=== PATIENT | female | born 1950 | race Caucasian/White ===

== ENCOUNTER 2020-07-06 10:13 | Inpatient (IN) | payer MEDICARE, SELFPAY ==
[2020-07-06] VITALS (10 sets, daily range): BP systolic 101–186; BP diastolic 45–75; PULSE 91–98; RESP 16–20; TEMP 36.9–39.3; O2SAT 93–99; BMI 40.7
--- NOTE | ~2020-07-06 | CT_ITS ---
EXAMINATION: CT HEAD WITHOUT CONTRAST CLINICAL INFORMATION: Left-sided facial droop. Left-sided weakness. COMPARISON: Brain MRI from 03/27/2018. TECHNIQUE: Contiguous axial imaging was performed from the skull base to vertex without intravenous administration of contrast. This CT examination was performed using dose optimization techniques as appropriate, variously including the following: *Automated exposure control. *Adjustment of mA and/or kV according to patient size (this includes techniques or standardized protocols for targeted exams where dose is matched to indication/reason for exam; i.e. extremities or head). *Use of iterative reconstruction technique. DLP: 797 mGy-cm FINDINGS: There is no evidence of acute intracranial hemorrhage or edematous territorial infarction. A few foci of hypoattenuation in the periventricular and deep white matter are consistent with mild microangiopathy. Hinojosa-white matter differentiation is preserved. Proportional prominence of the ventricles and sulcal spaces. No evidence for obstructive hydrocephalus. No abnormal mass effect or midline shift. No extra-axial fluid collections. No acute soft tissue or osseous abnormalities. Advanced degenerative arthropathy of the right temporal mandibular joint. Mild mucosal thickening of the paranasal sinuses. The mastoid air cells and middle ear cavities are clear. CT/CT head for stroke IMPRESSION: 1. No evidence of acute intracranial hemorrhage or edematous territorial infarction. 2. Mild underlying microangiopathy. This critical result was discussed with DERIK Mas at 10:39 hours on 07/06/2020. It was ascertained that the content and urgency of the report was understood at the time of direct communication.
--- NOTE | ~2020-07-06 | XR_ITS ---
EXAMINATION: XR CHEST CLINICAL INFORMATION: Fever COMPARISON: Chest x-ray 03/27/2018 TECHNIQUE: Frontal view of the chest was obtained. Examination suboptimal due to patient noncompliance. FINDINGS: Visualized portions of the cardiac silhouette are normal in size. The lungs are well aerated although the lung bases are incompletely visualized. No gross lobar consolidation identified. No pneumothorax. No large pleural effusion. Surgical clips project over the left lower chest/axilla. XR/XR chest 1V IMPRESSION: Suboptimal examination which demonstrates no acute pulmonary pathology.
--- NOTE | ~2020-07-06 | CT_ITS ---
EXAMINATION: CT ANGIOGRAM HEAD CT ANGIOGRAM NECK CLINICAL INFORMATION: Left-sided facial droop. Left-sided weakness. COMPARISON: CT head from 07/06/2020. Brain MRI from 03/27/2018. TECHNIQUE: Initial noncontrast title specialist imaging of the head and neck was performed. Comparison is made with noncontrast head CT from earlier today. Test bolus sequences followed by intravenous administration 75 mL of Omnipaque 350. Helical imaging was performed in the axial plane from the aortic arch to the skull vertex. Delayed postcontrast imaging of the head was also performed. The data was processed at the neurodiagnostic technologist's workstation for generation of MIP sequences. Angled MIPs and volume rendered reformatted images were also generated at an offline 3D workstation. Stenoses are assessed in accordance with NASCET criteria unless otherwise indicated. DLP: 2804 mGy-cm FINDINGS: CT Head: There is no evidence of acute intracranial hemorrhage or edematous territorial infarction. A few foci of hypoattenuation in the periventricular and deep white matter are consistent with mild microangiopathy. Hinojosa-white matter differentiation is preserved. Proportional prominence of the ventricles and sulcal spaces. No evidence for obstructive hydrocephalus. No abnormal mass effect or midline shift. No extra-axial fluid collections. No pathologic intra-axial enhancement or regional oligemia. No acute soft tissue or osseous abnormalities. Mild mucosal thickening of the paranasal sinuses. The mastoid air cells and middle ear cavities are clear. Bilateral lens extractions. CT Neck: The thyroid gland and remaining cervical soft tissues are within normal limits. Straightening of the normal cervical lordosis. Moderate degenerative arthropathy of the atlantoaxial articulations. Moderate degenerative disc disease at C5-C6 and C6-C7 with disc-osteophyte complex formation. Facet and uncovertebral joint arthropathy leads to osseous encroachment on the neural foramina from C2-C7. CT Upper Chest: The visualized lung apices and upper mediastinum are within normal limits. Neck CTA: Evaluation of the cervical arteries is partially limited by motion artifact. Aortic Arch: Normal contour and caliber. Two vessel branching pattern of the arch with left common carotid artery arising from the brachiocephalic trunk. Great Vessel Origins: No significant stenosis of the branch origins. Right Common Carotid Artery: Normal opacification without focal stenosis or occlusion. Cervical Right Internal Carotid Artery: Normal opacification without focal stenosis or occlusion. Left Common Carotid Artery: Normal opacification without focal stenosis or occlusion. Cervical Left Internal Carotid Artery: Normal opacification without focal stenosis or occlusion. Cervical Right Vertebral Artery: Co-dominant. Normal opacification without focal stenosis or occlusion. Cervical Left Vertebral Artery: Co-dominant. Normal opacification without focal stenosis or occlusion. Brain CTA: Intracranial Internal Carotid Arteries: Minimal calcific atherosclerotic disease of the intracranial internal carotid arteries without occlusion or flow-limiting stenosis. Normal contrast opacification of the petrous, cavernous, paraophthalmic, and supraclinoid segments of the internal carotid arteries without focal stenosis. Right Anterior Cerebral Artery: The A1 segment is mildly diminutive. Normal opacification of the distal segments of the DEBORA. Left Anterior Cerebral Artery: Normal A1 segment. Normal opacification of the distal segments of the DEBORA. Anterior Communicating Artery: Normal. Right Middle Cerebral Artery: Normal opacification of the M1 segment of the MCA without focal stenosis or occlusion. Normal arborization of the distal segments. Left Middle Cerebral Artery: Normal opacification of the M1 segment of the MCA without focal stenosis or occlusion. Normal arborization of the distal segments. Right Vertebral Artery: Normal opacification of the V4 segment. Normal opacification of the proximal segments of the posterior inferior cerebellar artery. Left Vertebral Artery: Normal opacification of the V4 segment. Normal opacification of the proximal segments of the posterior inferior cerebellar artery. Basilar Artery: Normal opacification without focal stenosis or occlusion. Normal appearance of the proximal superior cerebellar arteries. Right Posterior Cerebral Artery: Normal P1 segment. Normal opacification of the distal segments of the FLAGMAN. Left Posterior Cerebral Artery: Normal P1 segment. Normal opacification of the distal segments of the FLAGMAN. Normal opacification of the superior sagittal, straight, transverse, and sigmoid sinuses. CT/CT angio head neck stroke IMPRESSION: 1. No evidence of acute intracranial hemorrhage or edematous territorial infarction. Mild underlying microangiopathy and generalized cerebral volume loss. 2. CTA of the head and neck without proximal occlusion or flow-limiting stenosis. This critical result was discussed with DERIK Mas at 10:39 hours on 07/06/2020. It was ascertained that the content and urgency of the report was understood at the time of direct communication.
--- NOTE | 2020-07-06 10:16 | ECG_ITS ---
Test Reason : WEAKNESS Blood Pressure : / mmHG Vent. Rate : 096 BPM Atrial Rate : 096 BPM P-R Int : 178 ms QRS Dur : 102 ms QT Int : 374 ms P-R-T Axes : 040 061 042 degrees QTc Int : 472 ms Normal sinus rhythm Nonspecific ST abnormality Abnormal ECG When compared with ECG of 27-MAR-2018 03:37, NV interval has decreased T wave inversion no longer evident in Lateral leads Referred By: Lon Melendez Electronically Signed By:GLADYS ALONZO MD
--- NOTE | 2020-07-06 10:56 | ED.NEUROSD ---
HPI - Neuro Symptoms/Deficit General Chief Complaint: Stroke Stated Complaint: STROKE ALERT , L WEAK, LKWT LAST NIGHT Time Seen by Provider: 07/06/20 10:16 Source: patient and EMS Mode of arrival: EMS Limitations: no limitations (I also obtained information from the patient's daughter, Maryann, cellphone number ) History of Present Illness HPI Narrative: 69-year-old female who presents emergency department for evaluation of a stroke. According to the paramedics, the patient's last well-known time was 11:00 p.m., prior to the patient going to bed. Paramedics noted that the patient had left upper and lower extremity paralysis with left facial droop and brought the patient in as a code stroke. According to the patient's daughter, Maryann, the patient went to bed last night around 11:00 p.m.. The patient sleeps on the sofa and not with her . She got up in the morning at around 8:30 a.m. and try to walk to the bathroom and fell. The found the patient lying on the floor with slurred speech. The then called the ambulance. The daughter states that the patient had stroke-like symptoms last year (2019) which turned out to be a complex migraine. The daughter states that the patient does have generalized weakness of her lower extremities and has to sleep on the sofa. She has not been ill recently and only complained of constipation to the daughter over the last several days. On arrival, I evaluated the patient on the explosives detonator stretcher, the patient was oriented to person, place, she had a right gaze paralysis, left facial droop, paralysis of left arm and left leg and unable to move his extremities against gravity therefore she was sent directly to the CT scanner. Initial NIH Stroke Scale was 15. Related Data Allergies Allergy/AdvReac Type Severity Reaction Status Date / Time Iodinated Contrast Media Allergy Severe SEDATION,TA Unverified 01/25/20 15:47 [IVP DYE] CHYCARDIA erythromycin base Allergy Unknown HIVES Unverified 01/25/20 15:47 [ERYTHROMYCIN BASE] Review of Systems Review of Systems: Yes all other systems are reviewed and are negative Neurologic: Reports Abnormal speech present and Reports Sensory deficit (Neuro) [facility] Past Medical History [facility] Narrative: Patient has a history of diabetes mellitus, hyperlipidemia, hypothyroidism and depression. She also has a history of complex migraines. She does not smoke cigarettes, she does not drink alcohol, she does not use drugs. She lives at home with her . Medical History (Updated 07/06/20 @ 15:14 by Lon Melendez MD) Complicated migraine Diabetes HLD (hyperlipidemia) HTN (hypertension) Hypothyroid Surgical History (Updated 07/06/20 @ 14:50 by DERIK Whalen) H/O section Hx of cholecystectomy Family History Family History (Updated 07/06/20 @ 14:51 by DERIK Whalen) Other Lung cancer Social History Social History (Updated 07/06/20 @ 14:51 by DERIK Whalen) Household Members: Spouse Alcohol intake: never Smoking Status: Never smoker Smoked in Last 30 Days: No Use of substances other than those prescribed or required for medical reasons: No Advance Directives: No Advance Directives Information Provided: No Physical Exam Vital Signs: Vital Signs: Last Vital Signs Temp 99.4 F 07/06/20 14:36 Pulse 91 07/06/20 14:36 Resp 20 07/06/20 14:36 BP 186/56 H 07/06/20 14:36 Pulse Ox 95 07/06/20 14:36 Body Mass Index 40.7 Const: General: cooperative Nutritional Appearance: obese Orientation/consciousness: oriented to person and oriented to place Limitations: no limitations HENMT: Head: Yes normal to inspection, Yes normocephalic and Yes atraumatic Ears: external ears normal General nose exam: Normal external nose present Face and sinus: Yes other (Left facial droop) Mouth: Normal oral and palatal mucosa present Throat: Yes posterior oropharynx normal Eyes: Periorbital: periorbital findings normal Eyelids: Yes eyelids normal Conjunctivae: conjunctivae normal Sclerae: sclerae normal Corneas: corneas normal Pupils: Other pupil findings (Right gaze paralysis, does not move past midline) Direct Ophthalmoscopy: normal light reflex Neck: Neck: Yes full ROM, Yes no lymphadenopathy, Yes no meningeal signs, Yes trachea midline and Yes supple Chest: Chest palpation & inspection: normal inspection of the chest and normal palpation of entire chest wall Resp: Effort & Inspection: normal respiratory effort and able to speak in complete sentences Auscultation: clear to auscultation bilaterally Cardio: Rate: regular rate Rhythm: regular rhythm Heart sounds: S1 normal heart sound present, S2 normal heart sound present and no murmurs GI: Inspection: Yes normal to inspection Palpation (GI): Soft to palpation, nontender, no guarding, not rigid and No hepatosplenomegaly present : General: Yes no CVA tenderness Back/Spine/Pelvis: Back: no CVA tenderness Cervical Spine: normal cervical lordosis Thoracic/Lumbar Spine: thoracic and lumbar spine normal to inspection Skin: Lesions: no lesions Rashes: no rashes Wounds: no wounds Neuro: General: oriented to person, oriented to place and no meningeal signs Cranial nerves: No CN's II-XII intact bilaterally and Yes Other cranial nerve findings present (Right gaze paralysis, left facial droop) Cognition (Neuro): normal cognition Speech: Abnormal speech present Motor exam (neuro): Other motor observations present (Left upper and left lower extremity paralysis) Sensory Exam: Sensory deficit (Neuro) and sensory level loss detected (Left arm , left leg, left face) Extrem: General: Yes normal to inspection and Yes full ROM Psych: Appearance: well kempt Mental Status: mental status grossly normal Speech and movement: Normal speech and movement present Affect: normal affect Attitude: cooperative Thought process: Normal thought process present Thought content: Normal thought content present Course Course Course Narrative: 69-year-old female who presents to the emergency department for evaluation of fall at home with stroke-like symptoms with left facial droop, left upper and left lower extremity paralysis and right gaze paralysis. Patient's NIH Stroke Scale was 15. The patient's last well-known time was 11:00 p.m. last night which was the time that she went to bed. The patient's CT scan of the head revealed no acute findings. CTA of the head and neck revealed no acute thrombus. I did discuss the patient's presentation with the covering neurologist, . Given her presentation, the patient is outside of the thrombolytics window and is not a tPA candidate. There does not appear to be of retrievable clot noted by Radiology. The neurologist recommended the patient be admitted for further workup of possible stroke. I did discuss this with the patient and with the patient's daughter, Maryann. I will present the patient to the covering hospitalist. MDM - Neuro Symptoms/Deficit Lab Data Result diagrams: 07/06/20 11:32 07/06/20 11:32 Labs: Lab Results 07/06/20 07/06/20 07/06/20 Range/Units 10:55 10:55 11:32 WBC 12.1 H (4.8-10.8) X10*3/uL RBC 4.35 (4.20-5.50) X10*6/uL Hgb 13.1 (12.0-16.0) g/dl Hct 38.7 (37-47) % MCV 89.0 (80-98) fL MCH 30.1 (27.0-33.0) pg MCHC 33.9 (31.0-35.0) g/dl RDW 13.5 (11.0-16.0) % Plt Count 272 (160-400) X10*3/uL MPV 11.2 (9.4-12.3) fL Immature Gran % (Auto) 0.7 H (0.0-0.4) % Neut % (Auto) 73.6 H (45-73) % Lymph % (Auto) 18.7 L (20-40) % [place] % (Auto) 6.2 (2-11) % Eos % (Auto) 0.5 (0-4) % Baso % (Auto) 0.3 (0-2) % Lymph # (Auto) 2.3 (1.2-4.9) X10*3/uL [place] # (Auto) 0.8 (0.1-1.2) X10*3/uL Eos # (Auto) 0.1 (0.0-0.4) X10*3/uL Baso # (Auto) 0.0 (0.0-0.2) X10*3/uL Abs Immat Gran (auto) 0.08 H (0.00-0.03) X10*3/uL Absolute Neuts (auto) 8.9 H (2.0-8.3) X10*3/uL Absolute Nucleated RBC 0.000 (0.0-0.012) X10*3/uL Nucleated RBC % (auto) 0.0 (0.0-0.2) /100WBC PT (10.8-13.0) SEC Whole Blood PT 12.1 (11.1-13.5) sec INR (0.9-1.1) Whole Blood INR 1.0 (0.9-1.1) APTT (24.1-38.0) SEC Sodium (135-145) mmol/L Potassium (3.3-5.1) mmol/L Chloride (96-108) mmol/L Carbon Dioxide (22-29) mmol/L Anion Gap (12-20) BUN (9-16) mg/dL Creatinine (0.5-1.4) mg/dL Estim Creat Clear Calc Estimated GFR POC Glucose 221 H (60-115) mg/dL Random Glucose (60-115) mg/dL Calcium (8.4-10.2) mg/dL Total Bilirubin (0.0-1.0) mg/dL Direct Bilirubin (0.0-0.5) mg/dL AST (5-31) U/L ALT (0-31) U/L Alkaline Phosphatase (39-117) U/L Total Creatine Kinase (26-140) U/L Troponin I High Sens (<3.5-17.0) ng/L Total Protein (6.5-8.0) g/dL Albumin (3.5-5.0) g/dL Urine Color Urine Appearance Urine pH (5.0-8.0) Ur Specific [place] (1.005-1.025) Urine Protein (NEG-TRACE) MG/DL Urine Glucose (UA) (NEG) MG/DL Urine Ketones (NEG) MG/DL Urine Blood (NEG) Urine Nitrite (NEG) Ur Leukocyte Esterase (NEG) COVID-19 (MARI) (Negative) COVID-19 Clin Com 07/06/20 07/06/20 07/06/20 Range/Units 11:32 11:32 11:32 WBC (4.8-10.8) X10*3/uL RBC (4.20-5.50) X10*6/uL Hgb (12.0-16.0) g/dl Hct (37-47) % MCV (80-98) fL MCH (27.0-33.0) pg MCHC (31.0-35.0) g/dl RDW (11.0-16.0) % Plt Count (160-400) X10*3/uL MPV (9.4-12.3) fL Immature Gran % (Auto) (0.0-0.4) % Neut % (Auto) (45-73) % Lymph % (Auto) (20-40) % [place] % (Auto) (2-11) % Eos % (Auto) (0-4) % Baso % (Auto) (0-2) % Lymph # (Auto) (1.2-4.9) X10*3/uL [place] # (Auto) (0.1-1.2) X10*3/uL Eos # (Auto) (0.0-0.4) X10*3/uL Baso # (Auto) (0.0-0.2) X10*3/uL Abs Immat Gran (auto) (0.00-0.03) X10*3/uL Absolute Neuts (auto) (2.0-8.3) X10*3/uL Absolute Nucleated RBC (0.0-0.012) X10*3/uL Nucleated RBC % (auto) (0.0-0.2) /100WBC PT 12.8 (10.8-13.0) SEC Whole Blood PT (11.1-13.5) sec INR 1.1 (0.9-1.1) Whole Blood INR (0.9-1.1) APTT 29.7 (24.1-38.0) SEC Sodium 136 (135-145) mmol/L Potassium 3.9 (3.3-5.1) mmol/L Chloride 99 (96-108) mmol/L Carbon Dioxide 26 (22-29) mmol/L Anion Gap 15 (12-20) BUN 21 H (9-16) mg/dL Creatinine 1.04 (0.5-1.4) mg/dL Estim Creat Clear Calc 65.1 Estimated GFR 53 POC Glucose (60-115) mg/dL Random Glucose 211 H (60-115) mg/dL Calcium 9.0 (8.4-10.2) mg/dL Total Bilirubin 1.0 (0.0-1.0) mg/dL Direct Bilirubin 0.3 (0.0-0.5) mg/dL AST 39 H (5-31) U/L ALT 46 H (0-31) U/L Alkaline Phosphatase 130 H (39-117) U/L Total Creatine Kinase 130 (26-140) U/L Troponin I High Sens < 3.5 (<3.5-17.0) ng/L Total Protein 7.0 (6.5-8.0) g/dL Albumin 3.8 (3.5-5.0) g/dL Urine Color Urine Appearance Urine pH (5.0-8.0) Ur Specific [place] (1.005-1.025) Urine Protein (NEG-TRACE) MG/DL Urine Glucose (UA) (NEG) MG/DL Urine Ketones (NEG) MG/DL Urine Blood (NEG) Urine Nitrite (NEG) Ur Leukocyte Esterase (NEG) COVID-19 (MARI) (Negative) COVID-19 Clin Com 07/06/20 07/06/20 Range/Units 14:34 14:54 WBC (4.8-10.8) X10*3/uL RBC (4.20-5.50) X10*6/uL Hgb (12.0-16.0) g/dl Hct (37-47) % MCV (80-98) fL MCH (27.0-33.0) pg MCHC (31.0-35.0) g/dl RDW (11.0-16.0) % Plt Count (160-400) X10*3/uL MPV (9.4-12.3) fL Immature Gran % (Auto) (0.0-0.4) % Neut % (Auto) (45-73) % Lymph % (Auto) (20-40) % [place] % (Auto) (2-11) % Eos % (Auto) (0-4) % Baso % (Auto) (0-2) % Lymph # (Auto) (1.2-4.9) X10*3/uL [place] # (Auto) (0.1-1.2) X10*3/uL Eos # (Auto) (0.0-0.4) X10*3/uL Baso # (Auto) (0.0-0.2) X10*3/uL Abs Immat Gran (auto) (0.00-0.03) X10*3/uL Absolute Neuts (auto) (2.0-8.3) X10*3/uL Absolute Nucleated RBC (0.0-0.012) X10*3/uL Nucleated RBC % (auto) (0.0-0.2) /100WBC PT (10.8-13.0) SEC Whole Blood PT (11.1-13.5) sec INR (0.9-1.1) Whole Blood INR (0.9-1.1) APTT (24.1-38.0) SEC Sodium (135-145) mmol/L Potassium (3.3-5.1) mmol/L Chloride (96-108) mmol/L Carbon Dioxide (22-29) mmol/L Anion Gap (12-20) BUN (9-16) mg/dL Creatinine (0.5-1.4) mg/dL Estim Creat Clear Calc Estimated GFR POC Glucose (60-115) mg/dL Random Glucose (60-115) mg/dL Calcium (8.4-10.2) mg/dL Total Bilirubin (0.0-1.0) mg/dL Direct Bilirubin (0.0-0.5) mg/dL AST (5-31) U/L ALT (0-31) U/L Alkaline Phosphatase (39-117) U/L Total Creatine Kinase (26-140) U/L Troponin I High Sens (<3.5-17.0) ng/L Total Protein (6.5-8.0) g/dL Albumin (3.5-5.0) g/dL Urine Color YELLOW Urine Appearance CLEAR Urine pH 5.0 (5.0-8.0) Ur Specific [place] 1.020 (1.005-1.025) Urine Protein NEG (NEG-TRACE) MG/DL Urine Glucose (UA) 100 H (NEG) MG/DL Urine Ketones NEG (NEG) MG/DL Urine Blood NEG (NEG) Urine Nitrite NEG (NEG) Ur Leukocyte Esterase NEG (NEG) COVID-19 (MARI) Negative (Negative) COVID-19 Clin Com See Note NIH Stroke Scale Internal: Initial- Upon Arrival Level of Consciousness: Alert Level of Consciousness Questions: Answers both questions correctly Level of Consciousness Commands: Performs both tasks correctly Best Gaze: Forced deviation (To the right) Visual: Partial hemianopia Facial Palsy: Partial paralysis Motor Arm (Right): No drift Motor Arm (Left): No movement Motor Leg (Right): No drift Motor Leg (Left): No movement Limb Ataxia: Absent Sensory: Mild to moderate sensory loss Best Language: No aphasia Dysarthia: Normal Extinction and Inattention: Visual, tactile, auditory, spatial, or personal inattention Score: 15 Critical Care Time Critical Care Time Critical Care Time: Yes Total Critical Care Time: 45 Attestation: Critical Care: The patient was critically ill with a high probability of imminent or life threatening deterioration. I spent greater than 30 minutes of discontinuous time evaluating the patient,delivering critical care at the bedside, discussing and evaluating pertinent data with consultants. Critical care time does not include time spent performing separately billable procedures or teaching. Total time spent performing critical care was 45 minutes. Discharge Plan Discharge Clinical Impression: Stroke Qualifiers: CVA mechanism: unspecified Qualified Code(s): I63.9 - Cerebral infarction, unspecified Patient Disposition: Admitted As Inpatient
[2020-07-06] MEDS: iohexoL 350 MG/ML 100 ML INFUS..BTL IV (10:58)
[2020-07-06 11:02] LABS: Glucose, Whole Blood 221 mg/dL (60-115)
[2020-07-06 11:36] LABS: MANUAL DIFF FLAG NO
[2020-07-06 11:39] LABS: Basophils Percent Auto 0.3 % (0-2); Eosinophils Absolute Auto 0.1 X10*3/uL (0.0-0.4); Eosinophils Percent Auto 0.5 % (0-4); Hematocrit 38.7 % (37-47); Hemoglobin 13.1 g/dl (12.0-16.0); Imm Gran Abs Auto 0.08 X10*3/uL (0.00-0.03); Imm Gran Pct Auto 0.7 % (0.0-0.4); Lymphocytes Absolute Auto 2.3 X10*3/uL (1.2-4.9); Lymphocytes Percent Auto 18.7 % (20-40); Mean Corpuscular HGB Conc 33.9 g/dl (31.0-35.0); Mean Corpuscular Hemoglobin 30.1 pg (27.0-33.0); Mean Platelet Volume 11.2 fL (9.4-12.3); Monocytes Absolute Auto 0.8 X10*3/uL (0.1-1.2); Monocytes Percent Auto 6.2 % (2-11); Neutrophils Absolute Auto 8.9 X10*3/uL (2.0-8.3); Neutrophils Percent Auto 73.6 % (45-73); Platelet Count 272 X10*3/uL (160-400); Red Blood Count 4.35 X10*6/uL (4.20-5.50); Red Cell Distribution Width 13.5 % (11.0-16.0); White Blood Count 12.1 X10*3/uL (4.8-10.8)
[2020-07-06 11:45] LABS: INTERNATIONAL NORM RATIO 1.1 (0.9-1.1); Prothrombin Time 12.8 SEC (10.8-13.0)
--- NOTE | 2020-07-06 11:45 | PC.NURSE ---
spoke with daughter. Per daughter patient has had an episode similar to this in past and cause was a migraine. per daughter patient take sumatriptin if needed, but did not take any today.
[2020-07-06 11:48] LABS: Partial Thromboplastin Time 29.7 SEC (24.1-38.0); Stroke Lab Use COMPLETE
[2020-07-06 12:10] LABS: Alanine Aminotransferase 46 U/L (0-31); Albumin Level 3.8 g/dL (3.5-5.0); Alkaline Phosphatase 130 U/L (39-117); Anion Gap 15 (12-20); Aspartate Amino Transferase 39 U/L (5-31); Bilirubin Direct 0.3 mg/dL (0.0-0.5); Blood Urea Nitrogen 21 mg/dL (9-16); Carbon Dioxide 26 mmol/L (22-29); Chloride 99 mmol/L (96-108); Creatinine Clr Calc Pharmacy 65.1; Estimated Glomerular Filt Rate 53; Glucose Random 211 mg/dL (60-115); Potassium 3.9 mmol/L (3.3-5.1); Sodium 136 mmol/L (135-145)
[2020-07-06 12:14] LABS: Troponin-I High Sensitivity < 3.5 ng/L (<3.5-17.0)
--- NOTE | 2020-07-06 14:13 | MHC.STROKE ---
[facility] PRE-NOTIFICATION STROKE ALERT , LKW 07/05/20 AT 2300. WOKE A T 0830 WITH SY[address]S. DIRECT TO CT AND CTA H/N. NO BLEED, NO LVO. EXCLUDED FROM TPA BASED ON LKW [address] PADGETT ALSO NOTIFIED BY ED. RECOMMEND STROKE ORDER SET, NURSING SWALLOW SCREEN, I WILL CONTINUE TO FOLLOW.
--- NOTE | 2020-07-06 14:33 | PM.EVENT ---
Event Note Date of Service: 07/06/20 Event Note: the patient was seen and evaluated with DERIK Cruz. I agree with her note, assessment and plan with the following. In summary, a 69 years old lady with PMH type 2 diabetes, dyslipidemia, hypertension, hypothyroidism, and depression and complicated migraine who presented to the hospital with left sided weakness as she fell at home in the middle of the night, unwittnessed. the patient was evaluated in ED as possible stroke\TIA with CT and CTA which were both negative for acute findings. by the time i evaluated the patient she had no weakness at left side and was able to move all extremities but noticed to be mildly altered. she was able to confirm the story but looked little confused. The patient has previous admission to the hospital with similar presentation almost 2 years ago in Mar 2018. requiring ICU admission and intubation. MRI, LP were done and negative. Neurology evaluated the patient at that point and diagnosed as complicated migraine. Left sided weakness TIA vs complicated migraine Has no focal weakness on eval. CT, CTA negative for acute findings or stenosis Keep on Tele Aspiration precautions, seizure precautions ASA Statin To gen neuro evaluation Encephalopathy seems to be related to acute event; question post-ictal state? Avoid meds that might alter her mentation reorietation Rest of evaluations by PA note.
[2020-07-06 14:34] LABS: Prothrombin Time Whole Bld POC 12.1 sec (11.1-13.5)
--- NOTE | 2020-07-06 14:43 | PM.IMHP ---
History of Present Illness Date of Service: 07/06/20 Chief Complaint: fall This is a 69-year-old female who presents to the emergency department after fall. She was reportedly in her usual state of health last night when she went to bed at 23:00. This morning she woke up around 830 to walk to the bathroom and fell. She was unable to get up off floor. Her came downstairs and found her on the floor. He called 911 and she was brought to the emergency department for evaluation. On arrival he was noted to have left-sided hemiparesis and facial droop. She was sent directly to CT scan. Brain CT and head/neck CTA showed no acute abnormalities. On my evaluation, she was moving all 4 extremities. She was able to look to the left side although she did have a preference toward the right. Previous admission in 2018 for encephalopathy requiring intubation/ICU level care. MRI/LP and other workup at that time negative. Thought to be r/t complex migraine. Review of Systems Review of Systems: Yes all other systems are reviewed and are negative Constitutional: Constitutional: Denies chills and Denies fever(s) Cardiovascular: Cardiovascular: Denies chest pain Respiratory: Respiratory: Denies cough Gastrointestinal: Gastrointestinal: Denies abdominal pain [facility] Medical History (Updated 07/06/20 @ 14:54 by DERIK Whalen) Complicated migraine Diabetes HLD (hyperlipidemia) HTN (hypertension) Hypothyroid Functional capacity: uses cane/walker Family History (Updated 07/06/20 @ 14:51 by DERIK Whalen) Other Lung cancer Family history: reviewed and not pertinent Surgical History (Updated 07/06/20 @ 14:50 by DERIK Whalen) H/O section Hx of cholecystectomy Social History (Updated 07/06/20 @ 14:51 by DERIK Whalen) Household Members: Spouse Alcohol intake: never Smoking Status: Never smoker Smoked in Last 30 Days: No Use of substances other than those prescribed or required for medical reasons: No Advance Directives: No Advance Directives Information Provided: No Meds Allergies Allergy/AdvReac Type Severity Reaction Status Date / Time Iodinated Contrast Media Allergy Severe SEDATION,TA Unverified 01/25/20 15:47 [IVP DYE] CHYCARDIA erythromycin base Allergy Unknown HIVES Unverified 01/25/20 15:47 [ERYTHROMYCIN BASE] Physical Exam Vital Signs and Narrative: Vital Signs: Last Vital Signs Temp 99.4 F 07/06/20 14:36 Pulse 91 07/06/20 14:36 Resp 20 07/06/20 14:36 BP 186/56 H 07/06/20 14:36 Pulse Ox 95 07/06/20 14:36 Body Mass Index 40.7 Const: General: no acute distress, alert and awake Nutritional Appearance: obese Orientation/consciousness: patient oriented x3 HENMT: Other: dry mucous memranes Head: Yes normocephalic and Yes atraumatic Eyes: Sclerae: sclerae normal Pupils: Equal, round and reactive pupils present Chest: Chest palpation & inspection: normal inspection of the chest Resp: Effort & Inspection: normal respiratory effort and no respiratory distress Auscultation: clear to auscultation bilaterally Cardio: Rate: regular rate Rhythm: regular rhythm GI: Palpation (GI): Soft to palpation and nontender Skin: General skin exam: no rashes or lesions noted Neuro: Other: Moving all 4 extremities spontaneously, strength equal bilaterally, no facial droop noted, tongue midline, although alert, somewhat confused General: patient oriented x3 Cranial nerves: Yes Equal, round and reactive pupils present Extrem: General: Yes normal to inspection Results Labs CBC and Chem 7: 07/06/20 11:32 07/06/20 11:32 Labs: Laboratory Results - last 24 hr 07/06/20 07/06/20 07/06/20 10:55 10:55 11:32 MCV 89.0 MCH 30.1 MCHC 33.9 RDW 13.5 Plt Count 272 MPV 11.2 Immature Gran % (Auto) 0.7 H Neut % (Auto) 73.6 H Lymph % (Auto) 18.7 L [place] % (Auto) 6.2 Eos % (Auto) 0.5 Baso % (Auto) 0.3 Lymph # (Auto) 2.3 [place] # (Auto) 0.8 Eos # (Auto) 0.1 Baso # (Auto) 0.0 Abs Immat Gran (auto) 0.08 H Absolute Neuts (auto) 8.9 H Absolute Nucleated RBC 0.000 Nucleated RBC % (auto) 0.0 PT Whole Blood PT 12.1 INR Whole Blood INR 1.0 APTT Anion Gap Estim Creat Clear Calc Estimated GFR POC Glucose 221 H Random Glucose Calcium Total Bilirubin Direct Bilirubin AST ALT Alkaline Phosphatase Total Creatine Kinase Troponin I High Sens Total Protein Albumin 07/06/20 07/06/20 07/06/20 11:32 11:32 11:32 MCV MCH MCHC RDW Plt Count MPV Immature Gran % (Auto) Neut % (Auto) Lymph % (Auto) [place] % (Auto) Eos % (Auto) Baso % (Auto) Lymph # (Auto) [place] # (Auto) Eos # (Auto) Baso # (Auto) Abs Immat Gran (auto) Absolute Neuts (auto) Absolute Nucleated RBC Nucleated RBC % (auto) PT 12.8 Whole Blood PT INR 1.1 Whole Blood INR APTT 29.7 Anion Gap 15 Estim Creat Clear Calc 65.1 Estimated GFR 53 POC Glucose Random Glucose 211 H Calcium 9.0 Total Bilirubin 1.0 Direct Bilirubin 0.3 AST 39 H ALT 46 H Alkaline Phosphatase 130 H Total Creatine Kinase 130 Troponin I High Sens < 3.5 Total Protein 7.0 Albumin 3.8 Imaging Radiologist's Impressions: Impressions Head CT 07/06/20 10:16 IMPRESSION: 1. No evidence of acute intracranial hemorrhage or edematous territorial infarction. 2. Mild underlying microangiopathy. This critical result was discussed with DERIK Mas at 10:39 hours on 07/06/2020. It was ascertained that the content and urgency of the report was understood at the time of direct communication. Head/Neck CTA 07/06/20 10:18 IMPRESSION: 1. No evidence of acute intracranial hemorrhage or edematous territorial infarction. Mild underlying microangiopathy and generalized cerebral volume loss. 2. CTA of the head and neck without proximal occlusion or flow-limiting stenosis. This critical result was discussed with DERIK Mas at 10:39 hours on 07/06/2020. It was ascertained that the content and urgency of the report was understood at the time of direct communication. Assessment and Plan (1) Left-sided weakness: Status: Acute (2) Encephalopathy: Status: Acute This is a 69 year old female with a history of DM, HTN, HLD, complex migraines who was brought to the ED after being found on the ground found to have left sided hemiparesis. TIA vs complicated migraine Left hemiparesis on arrival, now able to move left side Brain CT negative -tele monitoring, neuro checks, swallow eval, asa -neuro consult - further management per neuro recommendation Acute encephalopathy r/o infection, UA pending Brain CT negative -neuro consult DM -SSI, POCs Morbid obesity BMI 40.7 Med rec pending at this time. DVT ppx - lovenox code status - presumed full code this case was discussed with Dr. Ivy
--- NOTE | 2020-07-06 15:00 | PC.NURSE ---
failed patient for RN swallow eval. patient not following all commands. not opening mouth to take in water. did take in small amount swallowed but could not complete entire swallow eval.
[2020-07-06 15:01] LABS: COVID-19 Test Negative (Negative); IDNOW Serial# 9DD0AD1C
[2020-07-06 15:02] LABS: Glucose Urine UA 100 MG/DL (NEG); Leukocyte Esterase Urine NEG (NEG); Nitrite Urine NEG (NEG); Urine Blood NEG (NEG); Urine Ketones NEG (NEG); Urine Protein NEG (NEG-TRACE)
[2020-07-06 15:06] LABS: Appearance Urine CLEAR; Color Urine YELLOW
[2020-07-06] MEDS: Enoxaparin Sodium 40 MG/0.4 ML SYRINGE SUBCUT (15:21)
[2020-07-06] MEDS: 0.9 % Sodium Chloride Flush 3 ML SYRINGE IVFLUSH ×2 (15:22→21:37)
[2020-07-06 15:39] LABS: Glucose, Whole Blood 242 mg/dL (60-115)
--- NOTE | 2020-07-06 16:20 | PC.NURSE ---
CALL TO PATIENT DAUGHTER FOR MED REC. NO ANSWER AT THIS TIME.
[2020-07-06 17:01] LABS: Glucose, Whole Blood 232 mg/dL (60-115)
[2020-07-06] MEDS: Aspirin 300 MG SUPP.RECT PR (18:01)
[2020-07-06 20:48] LABS: Glucose, Whole Blood 249 mg/dL (60-115)
[2020-07-06] MEDS: Haloperidol Lactate 5 MG/ML VIAL 2.5 MG IVPUSH (21:34)
[2020-07-06 21:40] LABS: MANUAL DIFF FLAG NO
[2020-07-06 21:43] LABS: Basophils Percent Auto 0.2 % (0-2); Eosinophils Percent Auto 0.1 % (0-4); Hematocrit 37.3 % (37-47); Hemoglobin 12.8 g/dl (12.0-16.0); Imm Gran Pct Auto 0.6 % (0.0-0.4); Lymphocytes Absolute Auto 2.3 X10*3/uL (1.2-4.9); Lymphocytes Percent Auto 14.5 % (20-40); Mean Corpuscular HGB Conc 34.3 g/dl (31.0-35.0); Mean Corpuscular Hemoglobin 30.3 pg (27.0-33.0); Mean Corpuscular Volume 88.2 fL (80-98); Mean Platelet Volume 11.4 fL (9.4-12.3); Monocytes Absolute Auto 0.6 X10*3/uL (0.1-1.2); Monocytes Percent Auto 3.8 % (2-11); Neutrophils Absolute Auto 13.1 X10*3/uL (2.0-8.3); Neutrophils Percent Auto 80.8 % (45-73); Platelet Count 307 X10*3/uL (160-400); Red Blood Count 4.23 X10*6/uL (4.20-5.50); Red Cell Distribution Width 13.8 % (11.0-16.0); White Blood Count 16.2 X10*3/uL (4.8-10.8)
[2020-07-06 22:20] LABS: Lactic Acid 3.8 mmol/L (0.5-2.0)
[2020-07-06] MEDS: Piperacillin Sodium/Tazobactam 3.375 GM in 0.9 % Sodium Chloride 50 ML IV (22:44)
[2020-07-06] MEDS: Lactated Ringers 1,000 ML 100 ML IVCONT (22:44)
[2020-07-06 23:37] LABS: Reflex Lactate? Lactic Acid Added
[2020-07-06] MEDS: vancomycin HCL 1,000 MG in 0.9 % Sodium Chloride 250 ML 270 MG IV (23:48)
[2020-07-07] MEDS: LORazepam 2 MG/ML VIAL 1 MG IVPUSH (00:30)
[2020-07-07 01:17] LABS: ~Lactic Acid-LAB USE ONLY 3.3 mmol/L (0.5-2.0)
[2020-07-07 02:32] LABS: Reflex Lactate? 2 Y
[2020-07-07 03:32] LABS: ~Lactic Acid-LAB USE ONLY 2.2 mmol/L (0.5-2.0)
[2020-07-07 03:34] VITALS: BP 133/46; PULSE 84; RESP 18; TEMP 37.1; O2SAT 95
[2020-07-07] MEDS: Piperacillin Sodium/Tazobactam 3.375 GM in 0.9 % Sodium Chloride 50 ML IV (06:34)
[2020-07-07 07:10] LABS: Basophils Percent Auto 0.3 % (0-2); Hematocrit 35.4 % (37-47); Hemoglobin 12.1 g/dl (12.0-16.0); Imm Gran Abs Auto 0.09 X10*3/uL (0.00-0.03); Imm Gran Pct Auto 0.6 % (0.0-0.4); Lymphocytes Absolute Auto 2.8 X10*3/uL (1.2-4.9); Lymphocytes Percent Auto 17.9 % (20-40); MANUAL DIFF FLAG SCAN; Mean Corpuscular HGB Conc 34.2 g/dl (31.0-35.0); Mean Corpuscular Hemoglobin 30.3 pg (27.0-33.0); Mean Corpuscular Volume 88.7 fL (80-98); Mean Platelet Volume 12.3 fL (9.4-12.3); Monocytes Absolute Auto 1.8 X10*3/uL (0.1-1.2); Monocytes Percent Auto 11.4 % (2-11); Neutrophils Absolute Auto 10.9 X10*3/uL (2.0-8.3); Neutrophils Percent Auto 69.8 % (45-73); Platelet Count 269 X10*3/uL (160-400); Red Blood Count 3.99 X10*6/uL (4.20-5.50); SCAN SMEAR FLAG 1; White Blood Count 15.6 X10*3/uL (4.8-10.8)
[2020-07-07 07:18] LABS: Glucose, Whole Blood 228 mg/dL (60-115)
[2020-07-07 07:39] LABS: Alanine Aminotransferase 42 U/L (0-31); Albumin Level 3.8 g/dL (3.5-5.0); Alkaline Phosphatase 117 U/L (39-117); Anion Gap 16 (12-20); Aspartate Amino Transferase 60 U/L (5-31); Bilirubin Direct 0.6 mg/dL (0.0-0.5); Bilirubin Total 1.6 mg/dL (0.0-1.0); Blood Urea Nitrogen 27 mg/dL (9-16); Calcium 8.8 mg/dL (8.4-10.2); Carbon Dioxide 27 mmol/L (22-29); Chloride 98 mmol/L (96-108); Cholesterol 149 mg/dL; Estimated Glomerular Filt Rate 37; Glucose Random 230 mg/dL (60-115); HDL Cholesterol 25 mg/dL; LDL Cholesterol Calculated 67 mg/dl; Potassium 3.5 mmol/L (3.3-5.1); Sodium 137 mmol/L (135-145); Total Protein 6.8 g/dL (6.5-8.0); Triglycerides 286 mg/dL
[2020-07-07 07:49] LABS: SLIDE REVIEW VERIFIED
[2020-07-07 07:51] VITALS: BP 116/52; PULSE 76; RESP 20; TEMP 36.3; O2SAT 98
[2020-07-07] MEDS: Acyclovir Sodium 500 MG in Dextrose 5 % 100 ML 110 MG IV ×2 (09:08→21:13)
[2020-07-07] MEDS: Insulin Lispro 100 UNIT/ML 3 ML VIAL SUBCUT ×4 (09:08→21:15)
[2020-07-07] MEDS: 0.9 % Sodium Chloride Flush 3 ML SYRINGE IVFLUSH ×2 (10:07→16:15)
[2020-07-07] MEDS: Ampicillin Sodium 1 GM in 0.9 % Sodium Chloride 100 ML IV ×2 (10:36→16:10)
[2020-07-07 11:01] LABS: Vancomycin Random 10.3 mcg/mL (15-20)
--- NOTE | 2020-07-07 11:16 | P.PNIM_ITS ---
Subjective Subjective Date of Service: 07/07/20 Interval History: . the patient was seen and evaluated this morning Laying in bed, feels comfortable, more alert and interactive today Spiked fever the and noticed to have elevated lactic acid as well, treated as possible infection No reported other overnight events. Systemic review: No reported fever, chills this morning but she has generalized weakness No chest pain, palpitation No shortness of breath or coughing No abdominal pain, nausea or vomiting No urinary symptoms No any rash or wounds Physical Exam Vital Signs: Vital Signs: Last Vital Signs Temp 97.3 F 07/07/20 07:51 Pulse 76 07/07/20 07:51 Resp 20 07/07/20 07:51 BP 116/52 L 07/07/20 07:51 Pulse Ox 98 07/07/20 07:51 Body Mass Index 40.7 Constitutional : Alert, oriented, not in distress Neck : Normal inspection, Supple Cardiovascular : RRR, S1 S2, no lower extremity edema Respiratory : Clear bilateral air entry, right lower lobe crackles, wheezes or rhonchi Gastrointestinal: soft, lax, Normal bowel sounds, Non tender Skin : Warm/Dry, No rash Neurological : Alert & oriented x3, No focal deficit Objective Data Current Medications Generic Name Dose Route Start Last Admin Trade Name Freq PRN Reason Stop Dose Admin Acetaminophen 325 mg 07/06/20 20:51 07/06/20 21:07 Acetaminophen 325 Mg Supp.Rect NH 325 mg Q6H PRN Administration fever Aspirin 300 mg 07/06/20 16:10 07/07/20 10:41 Aspirin 300 Mg Supp.Rect NH Not Given DAILY [place] Docusate Sodium 100 mg 07/06/20 15:10 Docusate Sodium 100 Mg Capsule PO DAILY PRN Constipation Enoxaparin Sodium 40 mg 07/06/20 15:10 07/06/20 15:21 Enoxaparin Sodium 40 Mg/0.4 Ml Syringe SUBCUT 40 mg Q24H [place] Administration Lactated Ringer's 1,000 mls @ 100 mls/hr 07/06/20 22:30 07/07/20 10:36 Lr IVCONT Not Given .Q10H [place] Vancomycin HCl 1,000 mg/ 270 mls @ 270 mls/hr 07/06/20 23:00 07/07/20 00:50 Sodium Chloride IV Infused Q12H [place] Infusion Ceftriaxone Sodium 1 gm/ 50 mls @ 100 mls/hr 07/07/20 08:00 Sodium Chloride IV Q24H [place] Acyclovir Sodium 500 mg/ 110 mls @ 110 mls/hr 07/07/20 08:00 07/07/20 10:36 Dextrose IV Infused Q12H [facility] Infusion Ampicillin Sodium 1 gm/ Sodium 100 mls @ 200 mls/hr 07/07/20 08:00 07/07/20 10:36 Chloride IV 200 mls/hr RQ8H [facility] Administration Insulin Human Lispro 0 unit 07/07/20 09:01 07/07/20 10:37 Insulin Lispro 100 Unit/Ml 3 Ml Vial SUBCUT Not Given QIDACHS [facility] Protocol Ondansetron HCl 4 mg 07/06/20 15:10 Ondansetron Hcl 4 Mg/2 Ml Vial IVPUSH Q8H PRN Nausea and Vomiting Pharmacy Consult 1 each 07/06/20 22:21 Consult Rx Vancomycin Dosing MISCELLANE DAILY PRN Consult order Sodium Chloride 3 ml 07/06/20 16:00 07/07/20 10:07 0.9 % Sodium Chloride Flush 3 Ml Syringe IVFLUSH 3 ml QSHIFT [place] Administration Labs CBC & Chem 7: 07/07/20 05:53 07/07/20 05:53 Assessment and Plan (1) Left-sided weakness: Status: Acute (2) Encephalopathy: Status: Acute (3) Fever: Status: Acute (4) SIRS (systemic inflammatory response syndrome): Status: Acute (5) Acute kidney injury: Status: Acute (6) Transaminitis: Status: Acute Assessment and Plan: a 69 years old lady with PMH type 2 diabetes, dyslipidemia, hypertension, hypothyroidism, and depression and complicated migraine who presented to the hospital with left sided weakness and altered mentation Left sided weakness Weakness completely resolved while in the Emergency Thought to be TIA vs complicated migraine Has no focal weakness on eval. CT, CTA negative for acute findings or stenosis Keep on Tele Aspiration precautions, seizure precautions Continue ASA Continue Statin Pending neuro evaluation Metabolic Encephalopathy Seems to be improving this morning Avoid meds that might alter her mentation Concern about for possible meningitis Sirs Lactic acidosis Patient spiked fever in the below tonight requiring evaluation for possible underlying infection, aspiration Start broad-spectrum antibiotic of vancomycin, ceftriaxone and ampicillin to cover for meningitis Start acyclovir To check LP Acute kidney injury Creatinine 1-1.5 from normal baseline Start IVF Monitor BMP, IN almost Transaminitis Likely related to acute illness and possible infection Avoid hepatotoxic medications DM SSI, POCs Morbid obesity BMI 40.7 DVT ppx - lovenox
[2020-07-07] MEDS: cefTRIAXone sodium 1 GM in 0.9 % Sodium Chloride 50 ML IV (11:18)
[2020-07-07 11:29] VITALS: BP 112/51; PULSE 83; RESP 18; TEMP 37.4; O2SAT 93
[2020-07-07 11:30] LABS: Glucose, Whole Blood 364 mg/dL (60-115)
[2020-07-07] MEDS: buPROPion HCl XL 300 MG TAB.ER.24H PO (12:06)
[2020-07-07] MEDS: vancomycin HCL 1,000 MG in 0.9 % Sodium Chloride 250 ML 270 MG IV (12:06)
--- NOTE | 2020-07-07 13:59 | PM.NEUROCN ---
History of Present Illness Data of Consult Service Date: 07/07/20 Primary Care Provider: Unknown Physician HPI Reason for consult: Left-sided weakness with a fall at home This is a 69-year-old woman with a history of poorly-controlled diabetes and hypertension who had a stroke-like event in 2018 with negative workup and complete recovery thought to be related to a complex migraine. On the day of admission she woke up at 08:30 and took a few steps to go to the kitchen and fell to the floor. She said she tripped on the 1 step. Her noted that her speech was slurred and call the senior mechanical estimator and she was brought to the ER where she was found to have fairly significant left-sided weakness some slurring right gaze preference and left hemiparesis. She had a CT scan of the head which was negative and a CTA that showed no significant stenosis or occlusive disease in the neck or intracranial circulation. She was admitted to the hospital and has since recovered completely. She did not have a headache with it. During the night she spiked a fever and is being cultured. At this time she has no complains of headache neck pain and otherwise feels normal. Review of Systems Eyes: Eyes: Reports no additional eye complaints ENT: Reports system reviewed and no additional complaints, except as documented and Reports Normal hearing present Cardiovascular: Cardiovascular: Reports no additional cardiovascular complaints Respiratory: Respiratory: Reports no additional respiratory complaints Gastrointestinal: Gastrointestinal: Reports no additional gastrointestinal complaints Musculoskeletal: Musculoskeletal: Reports no additional musculoskeletal complaints Integumentary/Breasts: Skin/Breast: Reports system reviewed and no additional complaints, except as docu Neurologic: Reports as per HPI and Reports Normal hearing present Psychiatric: Psychiatric: Reports as per HPI Endocrine: Endocrine: Reports no additional endocrine complaints Hematologic/Lymphatic: Hematologic/Lymphatic: Reports no additional hematologic/lymphatic complaints Allergic/Immunologic: Allergic/Immunologic: Reports no additional allergic/immunologic complaints [facility] Past Medical History Medical History (Updated 07/07/20 @ 14:03 by Nia Luevano MD) Complicated migraine Diabetes HLD (hyperlipidemia) HTN (hypertension) Hypothyroid Functional capacity: uses cane/walker Family History Family History (Updated 07/06/20 @ 14:51 by DERIK Whalen) Other Lung cancer Family history: reviewed and not pertinent Surgical History Surgical History (Updated 07/06/20 @ 14:50 by DERIK Whalen) H/O section Hx of cholecystectomy Social History Social History (Updated 07/06/20 @ 14:51 by DERIK Whalen) Household Members: Spouse Housing: Unknown / Unable to assess Unable to assess alcohol history related to: Unknown Alcohol intake: never Smoking Status: Never smoker Smoked in Last 30 Days: No Patient Interested in Nicotine Replacement: No Patient Given Instructions on How to Stop Smoking: No Use of substances other than those prescribed or required for medical reasons: Unable to respond Currently Displaying Signs/Symptoms of Drug Intoxication Withdrawal: No Any prior treatment program specific to substance use: No Advance Directives: No Advance Directives Information Provided: No Advance Directives on File: No Do you have thoughts of harming others: None Do you have a plan to hurt others: No Plan Recently lost weight without trying: Unsure Meds Allergies Allergy/AdvReac Type Severity Reaction Status Date / Time Iodinated Contrast Media Allergy Severe SEDATION,TA Unverified 01/25/20 15:47 [IVP DYE] CHYCARDIA erythromycin base Allergy Unknown HIVES Unverified 01/25/20 15:47 [ERYTHROMYCIN BASE] Active Medications: Current Medications Generic Name Dose Route Start Last Admin Trade Name Freq PRN Reason Stop Dose Admin Acetaminophen 325 mg 07/06/20 20:51 07/06/20 21:07 Acetaminophen 325 Mg Supp.Rect IN 325 mg Q6H PRN Administration fever Aspirin 81 mg 07/08/20 09:00 Aspirin 81 Mg Tab.Chew PO DAILY [facility] Bupropion HCl 300 mg 07/07/20 11:30 07/07/20 12:06 Bupropion Hcl Xl 300 Mg Tab.Er.24h PO 300 mg DAILY [facility] Administration Docusate Sodium 100 mg 07/06/20 15:10 Docusate Sodium 100 Mg Capsule PO DAILY PRN Constipation Enoxaparin Sodium 40 mg 07/06/20 15:10 07/06/20 15:21 Enoxaparin Sodium 40 Mg/0.4 Ml Syringe SUBCUT 40 mg Q24H [facility] Administration Fluticasone Propionate 2 spray 07/08/20 09:00 Fluticasone Propionate Nasal 16 Gm [place] NOSTRIL-B DAILY [facility] Lactated Ringer's 1,000 mls @ 100 mls/hr 07/06/20 22:30 07/07/20 10:36 Lr IVCONT Not Given .Q10H [facility] Vancomycin HCl 1,000 mg/ 270 mls @ 270 mls/hr 07/06/20 23:00 07/07/20 12:06 Sodium Chloride IV 270 mls/hr Q12H [facility] Administration Ceftriaxone Sodium 1 gm/ 50 mls @ 100 mls/hr 07/07/20 08:00 07/07/20 11:48 Sodium Chloride IV Infused Q24H [facility] Infusion Acyclovir Sodium 500 mg/ 110 mls @ 110 mls/hr 07/07/20 08:00 07/07/20 10:36 Dextrose IV Infused Q12H [facility] Infusion Ampicillin Sodium 1 gm/ Sodium 100 mls @ 200 mls/hr 07/07/20 08:00 07/07/20 11:21 Chloride IV Infused RQ8H [facility] Infusion Insulin Glargine 40 unit 07/07/20 21:00 Insulin Glargine,Hum.Rec.Anlog 100 Unit/Ml 10 Ml Vial SUBCUT BID [facility] Insulin Human Lispro 0 unit 07/07/20 09:01 07/07/20 12:07 Insulin Lispro 100 Unit/Ml 3 Ml Vial SUBCUT 10 unit QIDACHS [facility] Administration Protocol Levothyroxine Sodium 125 mcg 07/08/20 09:00 Levothyroxine Sodium 125 Mcg Tablet PO DAILY [facility] Ondansetron HCl 4 mg 07/06/20 15:10 Ondansetron Hcl 4 Mg/2 Ml Vial IVPUSH Q8H PRN Nausea and Vomiting Pharmacy Consult 1 each 07/06/20 22:21 Consult Rx Vancomycin Dosing MISCELLANE DAILY PRN Consult order Primidone 50 mg 07/07/20 21:00 Primidone 50 Mg Tablet PO BID [facility] Sodium Chloride 3 ml 07/06/20 16:00 07/07/20 10:07 0.9 % Sodium Chloride Flush 3 Ml Syringe IVFLUSH 3 ml QSHIFT [facility] Administration Home Medications Medication Instructions Recorded Confirmed Last Taken Type Imitrex 07/06/20 Unknown History ammonium lactate 1 appl TOPICAL DAILY 07/06/20 07/06/20 Unknown History aspirin 81 mg PO DAILY 07/06/20 07/06/20 Unknown History bupropion HCl 1 tab PO QAM 07/06/20 07/06/20 Unknown History citalopram 1 tab PO DAILY 07/06/20 07/06/20 Unknown History clotrimazole 1 appl TOPICAL BID 07/06/20 07/06/20 Unknown History fluticasone propionate [Flonase] 2 spray INTRANASAL DAILY 07/06/20 07/06/20 Unknown History insulin glargine 73 unit SUBCUT BID 07/06/20 07/06/20 Unknown History insulin lispro See Rx Instructions .ROUTE .COMPLEX 07/06/20 07/06/20 Unknown History levothyroxine 1 tab PO DAILY 07/06/20 07/06/20 Unknown History loperamide 2 mg PO QID PRN 07/06/20 07/06/20 Unknown History nystatin 1 applic TOPICAL QWEEK 07/06/20 07/06/20 Unknown History pen needle, diabetic [Novofine 32] 07/06/20 07/06/20 Unknown History primidone 1 tab PO BID 07/06/20 07/06/20 Unknown History simvastatin 1 tab PO BEDTIME 07/06/20 07/06/20 Unknown History spironolacton-hydrochlorothiaz 1 tab PO DAILY 07/06/20 07/06/20 Unknown History Physical Exam Vital Signs: Vital Signs: Last Vital Signs Temp 99.3 F 07/07/20 11:29 Pulse 83 07/07/20 11:29 Resp 18 07/07/20 11:29 BP 112/51 L 07/07/20 11:29 Pulse Ox 93 07/07/20 11:29 Body Mass Index 40.7 Const: General: cooperative, comfortable, no acute distress, well developed, alert and awake Nutritional Appearance: well nourished Orientation/consciousness: oriented to person, oriented to place and oriented to time Limitations: no limitations HENMT: Head: Yes normal to inspection, Yes normocephalic and Yes atraumatic Ears: hearing grossly normal bilaterally General nose exam: Normal external nose present Face and sinus: Yes normal facial exam Mouth: Normal oral and palatal mucosa present Eyes: General: appearance normal, both eyes and all related structures Visual De Jesus: normal visual de jesus by confrontation Alignment and Position: alignment normal Periorbital: periorbital findings normal Eyelids: Yes eyelids normal Conjunctivae: conjunctivae normal Sclerae: sclerae normal Corneas: corneas normal Pupils: Equal, round and reactive pupils present and Pupil accommodation reflex normal EOM: EOMs intact bilaterally Direct Ophthalmoscopy: normal light reflex Neck: Neck: Yes normal visual inspection, Yes full ROM and Yes no meningeal signs Thyroid: Thyroid normal Carotids: normal carotid upstroke and bounding pulses Chest: Chest palpation & inspection: normal inspection of the chest Resp: Effort & Inspection: normal respiratory effort Auscultation: clear to auscultation bilaterally Cardio: Rate: regular rate Rhythm: regular rhythm Heart sounds: S1 normal heart sound present and S2 normal heart sound present Peripheral pulses: Peripheral pulses 2+ throughout GI: Inspection: Yes normal to inspection Percussion: Yes normal to percussion Auscultation: normal bowel sounds Rectal Exam - Female: deferred Back/Spine/Pelvis: Cervical Spine: normal cervical lordosis and cervical ROM normal Thoracic/Lumbar Spine: thoracic and lumbar spine normal to inspection Skin: General skin exam: no rashes or lesions noted Neuro: General: oriented to person, oriented to place, oriented to time, gait normal, tone normal, moves all extremities, Normal light touch and pain sensation, no meningeal signs, no focal motor deficits, CN's II-XI intact bilaterally, normal sensation to monofilament and deep tendon reflexes 2+ bilaterally Cranial nerves: Yes CN's II-XII intact bilaterally, Yes Equal, round and reactive pupils present, Yes Bilaterally intact EOM present, Yes Nystagmus not present, Yes Normal facial strength present, Yes Midline tongue present, Yes Normal gag reflex present, Yes Symmetric palate elevation present, Yes Normal hearing present and Yes Ability to bilaterally rotate head present Cognition (Neuro): normal cognition Speech: Other speech findings present (Neuro) Gait exam (Neuro): Normal gait present Motor exam (neuro): 5/5 motor strength present throughout, Pronator motor function not present, no tremor noted, no asterixis, Motor fasciculations not present, Normal motor muscle tone present throughout and Motor abnormalities not present Sensory Exam: Bilaterally intact graphesthesia Deep tendon reflexes (DTR's): Right triceps reflex intensity grade: 2+, Left triceps reflex intensity grade: 2+, Rt Biceps (C5, C6): 2+, Left biceps reflex intensity grade: 2+, Right brachioradialis reflex intensity grade: 2+, Left brachioradialis reflex intensity grade: 2+, Right patellar reflex intensity grade: 2+, Left patellar reflex intensity grade: 2+, Right ankle reflex intensity grade: 2+ and Left ankle reflex intensity grade: 2+ Plantar Reflex Responses: downgoing: right, left and bilateral Coordination: [id number] test normal, [id number] test normal, tandem gait normal and Romberg test negative Pupils: Normal pupillary reactivity/response: bilateral Extrem: General: Yes normal to inspection, Yes normal exam except as noted and Yes no pedal edema Psych: Appearance: grossly normal Mental Status: mental status grossly normal Speech and movement: Normal speech and movement present and Clear speech present Affect: normal affect Attitude: cooperative Thought process: Normal thought process present Results Labs CBC & Chem 7: 07/07/20 05:53 07/07/20 05:53 Labs: Short CBC 07/06/20 07/07/20 Range/Units 21:29 05:53 WBC 16.2 H 15.6 H (4.8-10.8) X10*3/uL Hgb 12.8 12.1 (12.0-16.0) g/dl Hct 37.3 35.4 L (37-47) % Plt Count 307 269 (160-400) X10*3/uL BMP 07/07/20 05:53 Sodium 137 Potassium 3.5 Chloride 98 Carbon Dioxide 27 BUN 27 H Creatinine 1.41 H Calcium 8.8 Liver Function 07/07/20 Range/Units 05:53 Total Bilirubin 1.6 H (0.0-1.0) mg/dL Direct Bilirubin 0.6 H (0.0-0.5) mg/dL AST 60 H (5-31) U/L ALT 42 H (0-31) U/L Alkaline Phosphatase 117 (39-117) U/L Albumin 3.8 (3.5-5.0) g/dL Urine 07/06/20 Range/Units 14:54 Urine Color YELLOW Urine Appearance CLEAR Urine pH 5.0 (5.0-8.0) Ur Specific [place] 1.020 (1.005-1.025) Urine Protein NEG (NEG-TRACE) MG/DL Urine Glucose (UA) 100 H (NEG) MG/DL Assessment and Plan (1) Hemiplegic migraine: Problem details: She had a similar event in 2018 with complete recovery and negative workup. Once again she has a complete recovery with negative workup Status: Acute Control of blood pressure and sugar. Cultures for fever. In view of her stroke risk factors. Aspirin 81 mg a day is recommended. (2) Left-sided weakness: Problem details: Resolved Status: Acute Procedures Date of Service Date of Service: 07/07/20
--- NOTE | 2020-07-07 14:15 | MHC.CM.PN ---
PT REPORTS SHE LIVES WITH HER DAUGHTER AND GRAND DAUGHTER. PT REPORTS SHE IS INDEPENDENT AT BASELINE, HAS NO SERVICES AND NO DME. PT REPORTS SHE IS NOW ACTIVE WITH [facility] FOR PRIMARY CARE. PT STATES HER HCP IS HER , BETO BARTLETT. SHE REPORTS HE DOES NOT LIVE WITH HER ANY LONGER BUT THEY ARE STILL AND SHE WANTS TO KEEP HIM HER HCP. CURRENT DC PLAN IS HOME WITH NO SERVICES PT WILL SELF ARRANGE TRANSPORT
[2020-07-07] MEDS: Lactated Ringers 1,000 ML 100 ML IVCONT (15:20)
[2020-07-07 16:00] VITALS: BP 109/47; PULSE 69; RESP 18; TEMP 36.8; O2SAT 97
[2020-07-07 16:28] LABS: Glucose, Whole Blood 242 mg/dL (60-115)
[2020-07-07 19:17] VITALS: BP 109/74; PULSE 70; RESP 18; TEMP 36.8; O2SAT 97
[2020-07-07] MEDS: Primidone 50 MG TABLET PO (20:19)
[2020-07-07 20:20] LABS: Glucose, Whole Blood 267 mg/dL (60-115)
[2020-07-07] MEDS: Insulin Glargine,Hum.rec.anlog 100 UNIT/ML 10 ML VIAL 40 UNIT SUBCUT (21:14)
[2020-07-07 23:25] VITALS: BP 106/57; PULSE 69; RESP 20; TEMP 36.8; O2SAT 95
[2020-07-08] MEDS: vancomycin HCL 1,000 MG in 0.9 % Sodium Chloride 250 ML 270 MG IV (00:01)
[2020-07-08] MEDS: 0.9 % Sodium Chloride Flush 3 ML SYRINGE IVFLUSH ×2 (00:02→16:14)
[2020-07-08] MEDS: Ampicillin Sodium 1 GM in 0.9 % Sodium Chloride 100 ML IV ×2 (00:15→07:12)
[2020-07-08 03:13] VITALS: BP 110/45; PULSE 63; RESP 20; TEMP 36.4; O2SAT 96
[2020-07-08] MEDS: Lactated Ringers 1,000 ML 100 ML IVCONT (06:20)
[2020-07-08 06:58] VITALS: BP 118/58; PULSE 75; RESP 14; TEMP 36.6; O2SAT 96
[2020-07-08 07:14] LABS: Glucose, Whole Blood 204 mg/dL (60-115)
[2020-07-08] MEDS: Levothyroxine Sodium 125 MCG TABLET PO (07:32)
[2020-07-08] MEDS: Aspirin 81 MG TAB.CHEW PO (07:32)
[2020-07-08] MEDS: Insulin Glargine,Hum.rec.anlog 100 UNIT/ML 10 ML VIAL 40 UNIT SUBCUT ×2 (07:33→20:45)
[2020-07-08] MEDS: Insulin Lispro 100 UNIT/ML 3 ML VIAL SUBCUT ×4 (07:33→20:47)
[2020-07-08] MEDS: Primidone 50 MG TABLET PO ×2 (07:33→20:44)
[2020-07-08] MEDS: buPROPion HCl XL 300 MG TAB.ER.24H PO (07:33)
[2020-07-08] MEDS: cefTRIAXone sodium 1 GM in 0.9 % Sodium Chloride 50 ML IV (07:51)
[2020-07-08] MEDS: Fluticasone Propionate Nasal 16 GM SPRAY 2 SPRAY NOSTRIL-B (07:52)
[2020-07-08] MEDS: Acyclovir Sodium 500 MG in Dextrose 5 % 100 ML 110 MG IV (08:59)
[2020-07-08] MEDS: Escitalopram Oxalate 20 MG TABLET PO (08:59)
--- NOTE | 2020-07-08 09:09 | P.PNIM_ITS ---
Subjective Subjective Date of Service: 07/08/20 Interval History: . the patient was seen and evaluated this morning Laying in bed, feels comfortable, alert, oriented and feels back to baseline No fever noticed overnight No reported other overnight events. Systemic review: No reported fever, chills this morning No chest pain, palpitation No shortness of breath or coughing No abdominal pain, nausea or vomiting No urinary symptoms No any rash or wounds Physical Exam Vital Signs: Vital Signs: Last Vital Signs Temp 97.8 F 07/08/20 06:58 Pulse 75 07/08/20 06:58 Resp 14 07/08/20 06:58 BP 118/58 L 07/08/20 06:58 Pulse Ox 96 07/08/20 06:58 Body Mass Index 40.7 Const: Other: Constitutional : Alert, oriented, not in distress Neck : Normal inspection, Supple Cardiovascular : RRR, S1 S2, no lower extremity edema Respiratory : Good bilateral air entry, no crackles, wheezes or rhonchi Gastrointestinal: soft, lax, Normal bowel sounds, Non tender Skin : Warm/Dry, No rash Neurological : Alert & oriented x3, No focal deficit, within normal cranial nerve from 2-12 exam, no neck rigidity Objective Data Current Medications Generic Name Dose Route Start Last Admin Trade Name Freq PRN Reason Stop Dose Admin Acetaminophen 325 mg 07/06/20 20:51 07/06/20 21:07 Acetaminophen 325 Mg Supp.Rect [place] 325 mg Q6H PRN Administration fever Aspirin 81 mg 07/08/20 09:00 07/08/20 07:32 Aspirin 81 Mg Tab.Chew PO 81 mg DAILY [facility] Administration Bupropion HCl 300 mg 07/07/20 11:30 07/08/20 07:33 Bupropion Hcl Xl 300 Mg Tab.Er.24h PO 300 mg DAILY [facility] Administration Docusate Sodium 100 mg 07/06/20 15:10 Docusate Sodium 100 Mg Capsule PO DAILY PRN Constipation Enoxaparin Sodium 40 mg 07/06/20 15:10 07/06/20 15:21 Enoxaparin Sodium 40 Mg/0.4 Ml Syringe SUBCUT 40 mg Q24H [facility] Administration Escitalopram Oxalate 20 mg 07/08/20 09:00 07/08/20 08:59 Escitalopram Oxalate 20 Mg Tablet PO 20 mg DAILY [facility] Administration Fluticasone Propionate 2 spray 07/08/20 09:00 07/08/20 07:52 Fluticasone Propionate Nasal 16 Gm [place] NOSTRIL-B 2 spray DAILY [facility] Administration Lactated Ringer's 1,000 mls @ 100 mls/hr 07/06/20 22:30 07/08/20 06:20 Lr IVCONT 100 mls/hr .Q10H [facility] Administration Vancomycin HCl 1,000 mg/ 270 mls @ 270 mls/hr 07/06/20 23:00 07/08/20 01:06 Sodium Chloride IV Infused Q12H [facility] Infusion Ceftriaxone Sodium 1 gm/ 50 mls @ 100 mls/hr 07/07/20 08:00 07/08/20 08:24 Sodium Chloride IV Infused Q24H [facility] Infusion Acyclovir Sodium 500 mg/ 110 mls @ 110 mls/hr 07/07/20 08:00 07/08/20 08:59 Dextrose IV 110 mls/hr Q12H [facility] Administration Ampicillin Sodium 1 gm/ Sodium 100 mls @ 200 mls/hr 07/07/20 08:00 07/08/20 07:48 Chloride IV Infused RQ8H [facility] Infusion Insulin Glargine 40 unit 07/07/20 21:00 07/08/20 07:33 Insulin Glargine,Hum.Rec.Anlog 100 Unit/Ml 10 Ml Vial SUBCUT 40 unit BID [facility] Administration Insulin Human Lispro 0 unit 07/07/20 09:01 07/08/20 07:33 Insulin Lispro 100 Unit/Ml 3 Ml Vial SUBCUT 4 unit QIDACHS [facility] Administration Protocol Levothyroxine Sodium 125 mcg 07/08/20 09:00 07/08/20 07:32 Levothyroxine Sodium 125 Mcg Tablet PO 125 mcg DAILY [facility] Administration Ondansetron HCl 4 mg 07/06/20 15:10 Ondansetron Hcl 4 Mg/2 Ml Vial IVPUSH Q8H PRN Nausea and Vomiting Pharmacy Consult 1 each 07/06/20 22:21 Consult Rx Vancomycin Dosing MISCELLANE DAILY PRN Consult order Primidone 50 mg 07/07/20 21:00 07/08/20 07:33 Primidone 50 Mg Tablet PO 50 mg BID [facility] Administration Sodium Chloride 3 ml 07/06/20 16:00 07/08/20 07:48 0.9 % Sodium Chloride Flush 3 Ml Syringe IVFLUSH Not Given QSHIFT [facility] Sumatriptan Succinate 50 mg 07/07/20 15:52 Sumatriptan Succinate 50 Mg Tablet PO DAILY MRX1 PRN Headache Labs CBC & Chem 7: 07/07/20 05:53 07/07/20 05:53 Microbiology Microbiology Results: Microbiology 07/06/20 21:30 Blood - Venous Blood Culture - Preliminary No growth after 24 hours. 07/06/20 21:23 Blood - Venous Blood Culture - Preliminary No growth after 24 hours. Assessment and Plan (1) Left-sided weakness: Problem details: Resolved Status: Acute (2) Encephalopathy: Status: Acute (3) Fever: Status: Acute (4) SIRS (systemic inflammatory response syndrome): Status: Acute (5) Acute kidney injury: Status: Acute (6) Transaminitis: Status: Acute Assessment and Plan: a 69 years old lady with PMH type 2 diabetes, dyslipidemia, hypertension, hypothyroidism, and depression and complicated migraine who presented to the hospital with left sided weakness and altered mentation Left sided weakness completely resolved DD X TIA vs complex migraine CT, CTA negative for acute findings or stenosis No abnormal rhythm noticed Tele Aspiration precautions, seizure precautions Continue ASA Continue Statin neuro evaluation appreciated, seems to be recurrent of previous attack of compl ex migraine, no signs to suggest meningitis on exam, cultures for other source of infection to hold on LP Metabolic Encephalopathy Resolved Avoid meds that might alter her mentation Concern about for possible meningitis Sirs Lactic acidosis Patient spiked fever in the below tonight requiring evaluation for possible underlying infection, possible aspiration with altered mentation To discuss with ID Continue broad-spectrum antibiotic, consider narrowing down to doxy and ceftriaxone Continue acyclovir Hold on LP for now Acute kidney injury Creatinine 1.5 from normal baseline Continue gentle IVF Monitor BMP, IN almost Transaminitis Likely related to acute illness and possible infection Avoid hepatotoxic medications DM SSI, POCs Morbid obesity BMI 40.7 DVT ppx - lovenox
--- NOTE | 2020-07-08 09:25 | MHC.CM.PN ---
Per MD, Patient is not yet medically cleared for dc (IV VANCO, IV ACYCLOVIR,IV AMPICILLIN, IV CEFTRIAXONE). Home is the goal for dc and CM will follow for possible need to adjust the dc plan.
[2020-07-08 10:41] LABS: Hematocrit 34.5 % (37-47); Hemoglobin 11.6 g/dl (12.0-16.0); Mean Corpuscular HGB Conc 33.6 g/dl (31.0-35.0); Mean Corpuscular Hemoglobin 30.6 pg (27.0-33.0); Mean Platelet Volume 11.5 fL (9.4-12.3); Platelet Count 258 X10*3/uL (160-400); Red Blood Count 3.79 X10*6/uL (4.20-5.50); Red Cell Distribution Width 14.1 % (11.0-16.0); White Blood Count 10.5 X10*3/uL (4.8-10.8)
[2020-07-08 10:56] VITALS: BP 125/56; PULSE 74; RESP 14; TEMP 36.6; O2SAT 95
[2020-07-08 11:11] LABS: Glucose, Whole Blood 343 mg/dL (60-115)
[2020-07-08 11:14] LABS: Alanine Aminotransferase 45 U/L (0-31); Albumin Level 3.3 g/dL (3.5-5.0); Alkaline Phosphatase 105 U/L (39-117); Aspartate Amino Transferase 61 U/L (5-31); Bilirubin Direct 0.3 mg/dL (0.0-0.5); Bilirubin Total 0.9 mg/dL (0.0-1.0)
[2020-07-08 11:21] LABS: Vancomycin Trough 22.8 mcg/mL (10.0-20.0)
[2020-07-08 11:27] VITALS: BMI 40.7
[2020-07-08 11:56] LABS: Anion Gap 14 (12-20); Blood Urea Nitrogen 25 mg/dL (9-16); Calcium 8.2 mg/dL (8.4-10.2); Carbon Dioxide 27 mmol/L (22-29); Chloride 101 mmol/L (96-108); Creatinine Clr Calc Pharmacy 49.4; Estimated Glomerular Filt Rate 38; Glucose Random 363 mg/dL (60-115); Potassium 3.8 mmol/L (3.3-5.1); Sodium 138 mmol/L (135-145)
[2020-07-08] MEDS: Piperacillin Sodium/Tazobactam 3.375 GM in 0.9 % Sodium Chloride 50 ML IV ×2 (14:01→20:44)
[2020-07-08] MEDS: Enoxaparin Sodium 40 MG/0.4 ML SYRINGE SUBCUT (14:10)
[2020-07-08 15:20] VITALS: BP 123/54; PULSE 79; RESP 17; TEMP 36.6; O2SAT 94
[2020-07-08] MEDS: Lactated Ringers 1,000 ML 60 ML IVCONT (16:24)
[2020-07-08 16:28] LABS: Glucose, Whole Blood 275 mg/dL (60-115)
[2020-07-08 19:23] VITALS: BP 160/64; PULSE 85; RESP 18; TEMP 37.3; O2SAT 94
[2020-07-08 20:21] LABS: Glucose, Whole Blood 361 mg/dL (60-115)
--- NOTE | 2020-07-08 20:39 | W.PM.IDCN ---
History of Present Illness Data of Consult Service Date: 07/08/20 Requesting physician: Roberta Velasquez Primary Care Provider: Unknown Physician HPI Reason for consult: possible infection She was brought in as a code stroke . She had weakness left arm and leg. She has no fever or chills. No one else is ill She has no cough or diarrhea. She had diminished mental status so there was concern over meningitis initially Review of Systems Review of Systems: Yes all other systems are reviewed and are negative PMFSH Past Medical History Medical History Complicated migraine Diabetes HLD (hyperlipidemia) HTN (hypertension) Hypothyroid Functional capacity: uses cane/walker Family History Family History Other Lung cancer Family history: reviewed and not pertinent Surgical History Surgical History H/O section Hx of cholecystectomy Social History Social History Household Members: Spouse Housing: Unknown / Unable to assess Unable to assess alcohol history related to: Unknown Alcohol intake: never Smoking Status: Never smoker Smoked in Last 30 Days: No Patient Interested in Nicotine Replacement: No Patient Given Instructions on How to Stop Smoking: No Use of substances other than those prescribed or required for medical reasons: Unable to respond Currently Displaying Signs/Symptoms of Drug Intoxication Withdrawal: No Any prior treatment program specific to substance use: No Advance Directives: No Advance Directives Information Provided: No Advance Directives on File: No Do you have thoughts of harming others: None Do you have a plan to hurt others: No Plan Recently lost weight without trying: Unsure service: No Current occupational status: retired Meds Allergies Allergy/AdvReac Type Severity Reaction Status Date / Time Iodinated Contrast Media Allergy Severe SEDATION,TA Verified 07/07/20 19:19 [IVP DYE] CHYCARDIA erythromycin base Allergy Unknown HIVES Verified 07/07/20 19:19 [ERYTHROMYCIN BASE] Active Medications: Current Medications Generic Name Dose Route Start Last Admin Trade Name Freq PRN Reason Stop Dose Admin Acetaminophen 325 mg 07/06/20 20:51 07/06/20 21:07 Acetaminophen 325 Mg Supp.Rect IL 325 mg Q6H PRN Administration fever Aspirin 81 mg 07/08/20 09:00 07/08/20 07:32 Aspirin 81 Mg Tab.Chew PO 81 mg DAILY CARLOTTA Administration Bupropion HCl 300 mg 07/07/20 11:30 07/08/20 07:33 Bupropion Hcl Xl 300 Mg Tab.Er.24h PO 300 mg DAILY CARLOTTA Administration Docusate Sodium 100 mg 07/06/20 15:10 Docusate Sodium 100 Mg Capsule PO DAILY PRN Constipation Enoxaparin Sodium 40 mg 07/06/20 15:10 07/08/20 14:10 Enoxaparin Sodium 40 Mg/0.4 Ml Syringe SUBCUT 40 mg Q24H CARLOTTA Administration Escitalopram Oxalate 20 mg 07/08/20 09:00 07/08/20 08:59 Escitalopram Oxalate 20 Mg Tablet PO 20 mg DAILY CARLOTTA Administration Fluticasone Propionate 2 spray 07/08/20 09:00 07/08/20 07:52 Fluticasone Propionate Nasal 16 Gm [place] NOSTRIL-B 2 spray DAILY CARLOTTA Administration Lactated Ringer's 1,000 mls @ 60 mls/hr 07/06/20 22:30 07/08/20 16:24 Lr IVCONT 60 mls/hr .[id number] CARLOTTA Administration Piperacillin Sod/Tazobactam 50 mls @ 100 mls/hr 07/08/20 14:00 07/08/20 14:40 Sod 3.375 gm/ Sodium Chloride IV Infused Q6H CARLOTTA Infusion Insulin Glargine 40 unit 07/07/20 21:00 07/08/20 07:33 Insulin Glargine,Hum.Rec.Anlog 100 Unit/Ml 10 Ml Vial SUBCUT 40 unit BID CARLOTTA Administration Insulin Human Lispro 0 unit 07/07/20 09:01 07/08/20 16:35 Insulin Lispro 100 Unit/Ml 3 Ml Vial SUBCUT 6 unit QIDACHS [facility] Administration Protocol Levothyroxine Sodium 125 mcg 07/08/20 09:00 07/08/20 07:32 Levothyroxine Sodium 125 Mcg Tablet PO 125 mcg DAILY CARLOTTA Administration Ondansetron HCl 4 mg 07/06/20 15:10 Ondansetron Hcl 4 Mg/2 Ml Vial IVPUSH Q8H PRN Nausea and Vomiting Pharmacy Consult 1 each 07/06/20 22:21 Consult Rx Vancomycin Dosing MISCELLANE DAILY PRN Consult order Primidone 50 mg 07/07/20 21:00 07/08/20 07:33 Primidone 50 Mg Tablet PO 50 mg BID CARLOTTA Administration Sodium Chloride 3 ml 07/06/20 16:00 07/08/20 16:14 0.9 % Sodium Chloride Flush 3 Ml Syringe IVFLUSH 3 ml QSHIFT CARLOTTA Administration Sumatriptan Succinate 50 mg 07/07/20 15:52 Sumatriptan Succinate 50 Mg Tablet PO DAILY MRX1 PRN Headache Home Medications Medication Instructions Recorded Confirmed Last Taken Type Imitrex 07/06/20 Unknown History ammonium lactate 1 appl TOPICAL DAILY 07/06/20 07/06/20 Unknown History aspirin 81 mg PO DAILY 07/06/20 07/06/20 Unknown History bupropion HCl 1 tab PO QAM 07/06/20 07/06/20 Unknown History citalopram 1 tab PO DAILY 07/06/20 07/06/20 Unknown History clotrimazole 1 appl TOPICAL BID 07/06/20 07/06/20 Unknown History fluticasone propionate [Flonase] 2 spray INTRANASAL DAILY 07/06/20 07/06/20 Unknown History insulin glargine 73 unit SUBCUT BID 07/06/20 07/06/20 Unknown History insulin lispro See Rx Instructions .ROUTE .COMPLEX 07/06/20 07/06/20 Unknown History levothyroxine 1 tab PO DAILY 07/06/20 07/06/20 Unknown History loperamide 2 mg PO QID PRN 07/06/20 07/06/20 Unknown History nystatin 1 applic TOPICAL QWEEK 07/06/20 07/06/20 Unknown History pen needle, diabetic [Novofine 32] 07/06/20 07/06/20 Unknown History primidone 1 tab PO BID 07/06/20 07/06/20 Unknown History simvastatin 1 tab PO BEDTIME 07/06/20 07/06/20 Unknown History spironolacton-hydrochlorothiaz 1 tab PO DAILY 07/06/20 07/06/20 Unknown History Physical Exam Vital Signs: Vital Signs: Last Vital Signs Temp 99.2 F 07/08/20 19:23 Pulse 85 07/08/20 19:23 Resp 18 07/08/20 19:23 BP 160/64 H 07/08/20 19:23 Pulse Ox 94 07/08/20 19:23 Body Mass Index 40.7 Const: General: cooperative Orientation/consciousness: patient oriented x3 HENMT: Head: Yes normal to inspection Mouth: Normal oral and palatal mucosa present Eyes: General: appearance normal, both eyes and all related structures Resp: Effort & Inspection: normal respiratory effort Cardio: Rate: regular rate GI: Palpation (GI): Soft to palpation and nontender : General: Yes no CVA tenderness Back/Spine/Pelvis: Back: no CVA tenderness Skin: General skin exam: no rashes or lesions noted Neuro: General: patient oriented x3 Extrem: General: Yes normal to inspection Psych: Appearance: grossly normal Results Labs CBC & Chem 7: 07/08/20 10:09 07/08/20 10:09 Labs: Short CBC 07/08/20 Range/Units 10:09 WBC 10.5 (4.8-10.8) X10*3/uL Hgb 11.6 L (12.0-16.0) g/dl Hct 34.5 L (37-47) % Plt Count 258 (160-400) X10*3/uL BMP 07/08/20 10:09 Sodium 138 Potassium 3.8 Chloride 101 Carbon Dioxide 27 BUN 25 H Creatinine 1.37 Calcium 8.2 L D Liver Function 07/08/20 Range/Units 10:09 Total Bilirubin 0.9 (0.0-1.0) mg/dL Direct Bilirubin 0.3 (0.0-0.5) mg/dL AST 61 H (5-31) U/L ALT 45 H (0-31) U/L Alkaline Phosphatase 105 (39-117) U/L Albumin 3.3 L (3.5-5.0) g/dL Microbiology Microbiology Results: Microbiology 07/06/20 21:30 Blood - Venous Blood Culture - Preliminary No growth after 24 hours. 07/06/20 21:23 Blood - Venous Blood Culture - Preliminary No growth after 24 hours. Assessment and Plan (1) Hemiplegic migraine: Problem details: She had a similar event in 2018 with complete recovery and negative workup. Once again she has a complete recovery with negative workup Status: Acute (2) SIRS (systemic inflammatory response syndrome): Problem details: There appears to be some aspiration component with diminished mental status. She doesnt seem to have any components of meningitis Status: Acute Would give Zosyn alone,possible 3-5 days then po Augmentin for total one week (3) Fever: Status: Acute
[2020-07-08 23:40] VITALS: BP 130/55; PULSE 73; RESP 18; TEMP 37; O2SAT 95
[2020-07-09] MEDS: 0.9 % Sodium Chloride Flush 3 ML SYRINGE IVFLUSH ×2 (00:22→08:03)
[2020-07-09] MEDS: Piperacillin Sodium/Tazobactam 3.375 GM in 0.9 % Sodium Chloride 50 ML IV ×2 (03:07→07:51)
[2020-07-09 03:12] VITALS: BP 141/49; PULSE 68; RESP 18; TEMP 36.8; O2SAT 96
[2020-07-09 05:02] LABS: Hematocrit 33.5 % (37-47); Mean Corpuscular HGB Conc 32.8 g/dl (31.0-35.0); Mean Corpuscular Hemoglobin 30.1 pg (27.0-33.0); Mean Corpuscular Volume 91.5 fL (80-98); Platelet Count 242 X10*3/uL (160-400); Red Blood Count 3.66 X10*6/uL (4.20-5.50); White Blood Count 9.1 X10*3/uL (4.8-10.8)
[2020-07-09 05:28] LABS: Anion Gap 13 (12-20); Blood Urea Nitrogen 22 mg/dL (9-16); Calcium 8.2 mg/dL (8.4-10.2); Carbon Dioxide 27 mmol/L (22-29); Chloride 105 mmol/L (96-108); Creatinine Clr Calc Pharmacy 56.9; Estimated Glomerular Filt Rate 45; Glucose Random 168 mg/dL (60-115); Potassium 3.6 mmol/L (3.3-5.1); Sodium 141 mmol/L (135-145)
[2020-07-09 07:10] LABS: Glucose, Whole Blood 175 mg/dL (60-115)
[2020-07-09 07:25] VITALS: BP 131/63; PULSE 70; RESP 18; TEMP 36.4; O2SAT 93
[2020-07-09] MEDS: Insulin Lispro 100 UNIT/ML 3 ML VIAL SUBCUT ×2 (07:51→12:00)
[2020-07-09] MEDS: Lactated Ringers 1,000 ML 60 ML IVCONT (07:51)
[2020-07-09] MEDS: Escitalopram Oxalate 20 MG TABLET PO (08:00)
[2020-07-09] MEDS: Aspirin 81 MG TAB.CHEW PO (08:00)
[2020-07-09] MEDS: buPROPion HCl XL 300 MG TAB.ER.24H PO (08:00)
[2020-07-09] MEDS: Levothyroxine Sodium 125 MCG TABLET PO (08:00)
[2020-07-09] MEDS: Fluticasone Propionate Nasal 16 GM SPRAY 2 SPRAY NOSTRIL-B (08:00)
[2020-07-09] MEDS: Primidone 50 MG TABLET PO (08:00)
[2020-07-09] MEDS: Insulin Glargine,Hum.rec.anlog 100 UNIT/ML 10 ML VIAL 40 UNIT SUBCUT (08:04)
[2020-07-09 09:38] LABS: Alanine Aminotransferase 41 U/L (0-31); Albumin Level 3.3 g/dL (3.5-5.0); Alkaline Phosphatase 103 U/L (39-117); Aspartate Amino Transferase 42 U/L (5-31); Bilirubin Direct 0.3 mg/dL (0.0-0.5); Bilirubin Total 0.9 mg/dL (0.0-1.0); Total Protein 5.9 g/dL (6.5-8.0)
[2020-07-09 11:03] LABS: Glucose, Whole Blood 306 mg/dL (60-115)
[2020-07-09 11:15] VITALS: BP 126/60; PULSE 76; RESP 18; TEMP 36.6; O2SAT 98
--- NOTE | 2020-07-09 12:50 | P.DS_ITS ---
DS: Providers Provider Date of Service: 07/10/20 Date of admission: 07/06/20 14:41 Primary care physician: Unknown Physician Consults: 07/06/20 14:41 Consult to Neurology Routine Consulting Provider: Nia Luevano Reason for consultation: left hemiparesis on arrival Has provider been notified: No 07/07/20 08:26 Consult to Infectious Diseases Routine Consulting Provider: Aleyda Sheridan Reason for consultation: AMS, Sepsis, pending LP for your kind eval. DS: Diagnosis Discharge Diagnosis (1) Hemiplegic migraine: Status: Acute (2) SIRS (systemic inflammatory response syndrome): Status: Acute (3) Fever: Status: Acute (4) Aspiration pneumonia: Status: Acute DS: Medications Discharge Medications Home Medications: Home Medications Medication Instructions Recorded Confirmed Imitrex 07/06/20 ammonium lactate 1 appl TOPICAL DAILY 07/06/20 07/06/20 aspirin 81 mg PO DAILY 07/06/20 07/06/20 bupropion HCl 1 tab PO QAM 07/06/20 07/06/20 citalopram 1 tab PO DAILY 07/06/20 07/06/20 clotrimazole 1 appl TOPICAL BID 07/06/20 07/06/20 fluticasone propionate 2 spray INTRANASAL DAILY 07/06/20 07/06/20 insulin glargine 73 unit SUBCUT BID 07/06/20 07/06/20 insulin lispro See Rx Instructions .ROUTE .COMPLEX 07/06/20 07/06/20 levothyroxine 1 tab PO DAILY 07/06/20 07/06/20 loperamide 2 mg PO QID PRN 07/06/20 07/06/20 nystatin 1 applic TOPICAL QWEEK 07/06/20 07/06/20 pen needle, diabetic [Novofine 32] 07/06/20 07/06/20 primidone 1 tab PO BID 07/06/20 07/06/20 simvastatin 1 tab PO BEDTIME 07/06/20 07/06/20 spironolacton-hydrochlorothiaz 1 tab PO DAILY 07/06/20 07/06/20 Previous Rx's Medication Instructions Recorded amoxicillin-pot clavulanate 1 tab PO BID #6 tab 07/09/20 [Augmentin] DS: Summary Hospital Course Hospital Course: HPI 69-year-old female who presents to the emergency department after fall. She was reportedly in her usual state of health last night when she went to bed at 23:00. This morning she woke up around 830 to walk to the bathroom and fell. She was unable to get up off floor. Her came downstairs and found her on the floor. He called 911 and she was brought to the emergency department for evaluation. On arrival he was noted to have left-sided hemiparesis and facial droop. She was sent directly to CT scan. Brain CT and head/neck CTA showed no acute abnormalities. On my evaluation, she was moving all 4 extremities. She was able to look to the left side although she did have a preference toward the right. admission in 2018 for encephalopathy requiring intubation/ICU level care. MRI/LP and other workup at that time negative. Thought to be r/t complex migraine. Hospital course 69-year-old female admitted with left-sided weakness and facial rule droop , CT brain, and CT head and neck was done on admission shows no acute abnormality, patient was initially admitted to rule out stroke, patient's symptoms resolved completely, patient was started on aspirin and statin, neurology was consulted reconciled less likely stroke recommended likely complex migraine, Patient was also found to have SIRS , and fever on admission, cultures were sent, patient was started on IV Zosyn, id was consulted recommended meningitis less likely , thought to aspiration pneumonia, cultures remain negative, patient was saturating well on room air, patient was switched to p.o. Augmentin on discharge, patient remained stable patient was ambulating fine, patient was discharged home on p.o. antibiotic, patient will follow-up PCP as outpatient Time Spent with Patient Time attestation: Total time spent providing and/or coordinating discharge services: Discharge coordination time: Greater than 30 minutes Physical Exam Vital Signs: Vital Signs: Last Vital Signs Temp 97.9 F 07/09/20 11:15 Pulse 76 07/09/20 11:15 Resp 18 07/09/20 11:15 BP 126/60 07/09/20 11:15 Pulse Ox 98 07/09/20 11:15 Body Mass Index 40.7 DS: Data Data Completed and Pending Labs on day of discharge: Laboratory Results - last 24 hr 07/08/20 07/08/20 07/09/20 16:20 20:10 04:25 WBC 9.1 RBC 3.66 L Hgb 11.0 L Hct 33.5 L MCV 91.5 MCH 30.1 MCHC 32.8 RDW 14.0 Plt Count 242 MPV 11.0 Absolute Nucleated RBC 0.000 Nucleated RBC % (auto) 0.0 Sodium Potassium Chloride Carbon Dioxide Anion Gap BUN Creatinine Estim Creat Clear Calc Estimated GFR POC Glucose 275 H 361 H* Random Glucose Calcium Total Bilirubin Direct Bilirubin AST ALT Alkaline Phosphatase Total Protein Albumin 07/09/20 07/09/20 07/09/20 04:25 07:06 11:00 WBC RBC Hgb Hct MCV MCH MCHC RDW Plt Count MPV Absolute Nucleated RBC Nucleated RBC % (auto) Sodium 141 Potassium 3.6 Chloride 105 Carbon Dioxide 27 Anion Gap 13 BUN 22 H Creatinine 1.19 Estim Creat Clear Calc 56.9 Estimated GFR 45 POC Glucose 175 H 306 H Random Glucose 168 H D Calcium 8.2 L Total Bilirubin 0.9 Direct Bilirubin 0.3 AST 42 H ALT 41 H Alkaline Phosphatase 103 Total Protein 5.9 L Albumin 3.3 L Preliminary micro results at discharge 07/06/20 21:30 Blood Culture - Preliminary Blood - Venous No growth after 48 hours. 07/06/20 21:23 Blood Culture - Preliminary Blood - Venous No growth after 48 hours. Discharge Plan Discharge Anticipated Discharge Date/Time: 07/09/20 12:22 Patient Disposition: Home, Self-Care Referrals: Physician,Unknown [Primary Care Provider] - Discharge Medications: New amoxicillin-pot clavulanate [Augmentin] 500-125 mg tablet 1 tab PO BID Qty: 6 RF: 0 Continued primidone 50 mg tablet 1 tab PO BID RF: 0 citalopram 40 mg tablet 1 tab PO DAILY RF: 0 spironolacton-hydrochlorothiaz 25-25 mg tablet 1 tab PO DAILY RF: 0 loperamide 2 mg Tablet 2 mg PO QID PRN (Reason: Diarrhea) RF: 0 simvastatin 20 mg tablet 1 tab PO BEDTIME RF: 0 levothyroxine 125 mcg tablet 1 tab PO DAILY RF: 0 aspirin 81 mg Tablet,Chewable 81 mg PO DAILY RF: 0 ammonium lactate 12 % Cream 1 appl TOPICAL DAILY RF: 0 fluticasone propionate 50 mcg/actuation Riparius,Suspension 2 spray INTRANASAL DAILY RF: 0 clotrimazole 1 % Cream 1 appl TOPICAL BID RF: 0 insulin lispro 100 unit/mL Insulin Pen See Rx Instructions unit .ROUTE .COMPLEX RF: 0 bupropion HCl 300 mg tablet extended release 24 hr 1 tab PO QAM RF: 0 insulin glargine 100 unit/mL (3 mL) Insulin Pen 73 unit SUBCUT BID RF: 0 Imitrex RF: 0 nystatin 1 applic topical QWEEK RF: 0 No Action (DME) pen needle, diabetic [Novofine 32] 32 gauge x 1/4 Needle MISCELLANEOUS RF: 0 Discharge Orders: Discharge Order (Routine); Ordered 07/09/20 Ordered By: Deshaun Bautista Activity on Discharge: As tolerated Stand Alone Forms: Patient Portal Discharge page Care Plan Goals: prevent hospitalization Health Concerns: see above Plan of Treatment: see above Discharge Date/Time: 07/09/20 13:36
--- NOTE | 2020-07-09 13:26 | MHC.CM.PN ---
pt dcd home nol sercveis pt has own transportation home
== END 2020-07-09 13:36 | disposition home or self-care (01) | DRG 102 ==
LOC: HO.ED 15:14 → HO.EDOVER 15:18 → HO.IMC 19:38
PROVIDERS: Internal Medicine; Physician Assistant Medical; Admitting Provider Student in an Organized Health Care Education/Training Program; Emergency Provider Emergency Medicine Emergency Medical Services; Visit Provider Internal Medicine
DX: G43.809 Other migraine, not intractable, without status migrainosus (principal); G93.41 Metabolic encephalopathy; J69.0 Pneumonitis due to inhalation of food and vomit; G81.94 Hemiplegia, unspecified affecting left nondominant side; N17.9 Acute kidney failure, unspecified; R65.10 Systemic inflammatory response syndrome (SIRS) of non-infectious origin without acute organ dysfunction; Z68.41 Body mass index [BMI] 40.0-44.9, adult; E03.9 Hypothyroidism, unspecified; E66.01 Morbid (severe) obesity due to excess calories; R29.810 Facial weakness; E78.5 Hyperlipidemia, unspecified; I10 Essential (primary) hypertension; E11.9 Type 2 diabetes mellitus without complications; Z20.822 Contact with and (suspected) exposure to COVID-19; Z79.4 Long term (current) use of insulin; Z79.52 Long term (current) use of systemic steroids; Z79.890 Hormone replacement therapy; Z79.899 Other long term (current) drug therapy
CPT/HCPCS: 36415; 70450; 70496; 70498; 71045; 80048; 80061; 80076; 80202; 81003; 82550; 82947; 83605; 84484; 85025; 85027; 85610; 85730; 87040; 87635; 92610; 93005; 97161; 99285; C1758; J0133; J0290; J0696; J1650; J2060; J2543; J3370; Q9967

== ENCOUNTER 2020-07-24 19:17 | Emergency (ER) | payer MEDICARE, SELFPAY ==
[2020-07-24 19:30] VITALS: BP 107/45; BP 96/42; PULSE 62; PULSE 64; RESP 16; TEMP 36.6; O2SAT 95; O2SAT 98; BMI 42.7
--- NOTE | 2020-07-24 20:37 | ECG_ITS ---
Test Reason : MEDICAL Blood Pressure : / mmHG Vent. Rate : 061 BPM Atrial Rate : 061 BPM P-R Int : 218 ms QRS Dur : 098 ms QT Int : 446 ms P-R-T Axes : 041 052 063 degrees QTc Int : 448 ms Sinus rhythm with 1st degree A-V block Nonspecific ST abnormality Abnormal ECG When compared with ECG of 06-JUL-2020 11:03, DE interval has increased Vent. rate has decreased BY 35 BPM Referred By: Debra Christina Electronically Signed By:GLADYS ALONZO MD
[2020-07-24 21:06] LABS: MANUAL DIFF FLAG NO
[2020-07-24 21:10] LABS: Basophils Absolute Auto 0.1 X10*3/uL (0.0-0.2); Basophils Percent Auto 0.4 % (0-2); Eosinophils Absolute Auto 0.3 X10*3/uL (0.0-0.4); Eosinophils Percent Auto 2.1 % (0-4); Hematocrit 35.1 % (37-47); Hemoglobin 11.9 g/dl (12.0-16.0); Imm Gran Abs Auto 0.07 X10*3/uL (0.00-0.03); Imm Gran Pct Auto 0.6 % (0.0-0.4); Lymphocytes Absolute Auto 2.7 X10*3/uL (1.2-4.9); Lymphocytes Percent Auto 21.2 % (20-40); Mean Corpuscular HGB Conc 33.9 g/dl (31.0-35.0); Mean Corpuscular Hemoglobin 30.6 pg (27.0-33.0); Mean Corpuscular Volume 90.2 fL (80-98); Mean Platelet Volume 11.2 fL (9.4-12.3); Monocytes Absolute Auto 1.3 X10*3/uL (0.1-1.2); Neutrophils Absolute Auto 8.4 X10*3/uL (2.0-8.3); Neutrophils Percent Auto 65.7 % (45-73); Platelet Count 298 X10*3/uL (160-400); Red Blood Count 3.89 X10*6/uL (4.20-5.50); Red Cell Distribution Width 13.6 % (11.0-16.0); White Blood Count 12.7 X10*3/uL (4.8-10.8)
[2020-07-24 21:21] VITALS: BP 95/42; PULSE 61
[2020-07-24 21:24] VITALS: BP 82/39; BP 89/43; PULSE 64; PULSE 74
--- NOTE | 2020-07-24 21:24 | ED_ITS ---
HPI - General Adult General Chief complaint: General Medical Stated complaint: WEAKNESS,TOOK DAUGHTER'S MEDS Time Seen by Provider: 07/24/20 20:27 Source: patient and EMS Mode of arrival: EMS Limitations: no limitations History of Present Illness HPI narrative: Patient comes emergency room complaining of feeling lightheaded after taking her daughter's muscle relaxant medication. Patient states that earlier this morning, patient was playing soccer with her granddaughter, patient started complaining of right-sided middle back pain, worse with movement. When patient got home, patient ask her daughter for pain medication, she got 2 tablets of tizanidine. Patient states that within 5 minutes, she started feeli ng lightheaded, thought she was going to pass out. EMS reported that the patient was hypotensive on scene. Of note, patient was discharged 2 weeks ago, diagnosed with complex migraines, rule out stroke symptoms. Initially, patient's daughter was concerned about the patient's speech being slow, not slurred, which all started after taking the muscle relaxant. Patient states that she feels well, a bit sleepy, but otherwise well. Related Data Home Medications Medication Instructions Recorded Confirmed Imitrex 07/06/20 ammonium lactate 1 appl TOPICAL DAILY 07/06/20 07/06/20 aspirin 81 mg PO DAILY 07/06/20 07/06/20 bupropion HCl 1 tab PO QAM 07/06/20 07/06/20 citalopram 1 tab PO DAILY 07/06/20 07/06/20 clotrimazole 1 appl TOPICAL BID 07/06/20 07/06/20 fluticasone propionate 2 spray INTRANASAL DAILY 07/06/20 07/06/20 insulin glargine 73 unit SUBCUT BID 07/06/20 07/06/20 insulin lispro See Rx Instructions .ROUTE .COMPLEX 07/06/20 07/06/20 levothyroxine 1 tab PO DAILY 07/06/20 07/06/20 loperamide 2 mg PO QID PRN 07/06/20 07/06/20 nystatin 1 applic TOPICAL QWEEK 07/06/20 07/06/20 pen needle, diabetic [Novofine 32] 07/06/20 07/06/20 primidone 1 tab PO BID 07/06/20 07/06/20 simvastatin 1 tab PO BEDTIME 07/06/20 07/06/20 spironolacton-hydrochlorothiaz 1 tab PO DAILY 07/06/20 07/06/20 Previous Rx's Medication Instructions Recorded amoxicillin-pot clavulanate 1 tab PO BID #6 tab 07/09/20 [Augmentin] Allergies Allergy/AdvReac Type Severity Reaction Status Date / Time Iodinated Contrast Media Allergy Severe SEDATION,TA Verified 07/24/20 19:30 [IVP DYE] CHYCARDIA erythromycin base Allergy Unknown HIVES Verified 07/24/20 19:30 [ERYTHROMYCIN BASE] Review of Systems Review of Systems: Constitutional : No Weight loss, No Fever, No Chills, No Night Sweats, No Fatigue, No Malaise ENT/Mouth : No Hearing loss, No Ear Pain, No Nasal Congestion, No Sinus Pain, No Hoarseness, No sore throat, No Rhinorrhea, No Swallowing Difficulty Eyes: No Eye Pain, No Swelling, No Redness, No Foreign Body, No Discharge, No Vision Changes Cardiovascular : No Chest Pain, No SOB, No Dyspnea on Exertion, No Orthopnea, No Edema, No Palpitations Respiratory : No Cough, No Sputum, No Wheezing, No Smoke Exposure, No Dyspnea Gastrointestinal : No Nausea, No Vomiting, No Diarrhea, No Constipation, No abdominal Pain, No Hematochezia, No Melena Genitourinary : no irregular bleeding, No Dysuria, No Urinary Frequency, No Hematuria, No Urinary Incontinence, No Urgency, No Flank Pain, No Urinary Flow Changes, No Hesitancy Musculoskeletal : Mild right-sided back pain, complaining of pulled muscle while playing soccer, No Myalgias, No Joint Swelling Skin : No Skin Lesions, No rash Neuro : No Weakness, No Numbness, No Paresthesias, No Loss of Consciousness, no headache, near syncopal episode Psych : No Anxiety/Panic, No Depression, No SI/HI/AH/VH, No Social Issues, Heme/Lymph: No Bruising, No Bleeding,No Lymphadenopathy Endocrine : No Polyuria, No Polydipsia, No Temperature Intolerance [facility] Past Medical History Medical History Complicated migraine Diabetes HLD (hyperlipidemia) HTN (hypertension) Hypothyroid Surgical History H/O section Hx of cholecystectomy Family History Family History Other Lung cancer Social History Social History Household Members: Spouse Housing: Unknown / Unable to assess Alcohol intake: never Smoking Status: Never smoker Advance Directives: No Advance Directives Information Provided: No service: No Current occupational status: retired Physical Exam Vital Signs: Vital Signs: Last Vital Signs Temp 97.5 F 07/24/20 21:28 Pulse 63 07/24/20 23:55 Resp 15 07/24/20 23:55 BP 106/49 L 07/24/20 23:55 Pulse Ox 96 07/24/20 23:55 Body Mass Index 42.7 Appearance: Alert. Oriented X3. No acute distress. Eyes: Pupils equal, round and reactive to light. ENT: Pharynx normal. Neck: Normal inspection. Neck supple. No lymph nodes noted. No crepitus CVS: Normal heart rate and rhythm. Pulses normal. Normal S1 and S2 Respiratory: No respiratory distress. Breath sounds normal. No Wheezing. No rales Abdomen: Soft and nontender. No rigidity. No distention. good BS x4 Back: Mildly tender to palpation over the right paraspinal muscles, no cervical/thoracic/lumbar spine tenderness Skin: Skin warm and dry. Normal skin color. Normal skin turgor. Extremities: No lower extremity edema. No lower extremity edema. No Lacerations. No Rash Neuro: Oriented X 3. No motor deficit. No sensory deficit. Moving all extermities. No slurred speech. Course Course Course Narrative: Patient's blood pressure has been above 100, however after her orthostatics, her blood pressure dropped to 82. Patient did feel slightly dizzy. Patient is receiving fluids now. Patient's low blood pressure as mentioned above is likely secondary to the muscle relaxant intake, sepsis is not suspected. Patient is back in bed now states she feels well On arrival, patient's orthostatics were positive. Patient was given fluid. After IV fluids, patient's orthostatics are not negative, creatinine function improved. Patient states that she feels well. Ready for discharge. Patient's symptoms likely secondary to a high dose of muscle relaxant. Patient states that her back does not hurt anymore Medical Decision Making Lab Data Result diagrams: 07/24/20 21:02 07/25/20 01:15 Labs: Lab Results 07/24/20 07/24/20 07/24/20 Range/Units 21:02 21:02 21:02 WBC 12.7 H (4.8-10.8) X10*3/uL RBC 3.89 L (4.20-5.50) X10*6/uL Hgb 11.9 L (12.0-16.0) g/dl Hct 35.1 L (37-47) % MCV 90.2 (80-98) fL MCH 30.6 (27.0-33.0) pg MCHC 33.9 (31.0-35.0) g/dl RDW 13.6 (11.0-16.0) % Plt Count 298 (160-400) X10*3/uL MPV 11.2 (9.4-12.3) fL Immature Gran % (Auto) 0.6 H (0.0-0.4) % Neut % (Auto) 65.7 (45-73) % Lymph % (Auto) 21.2 (20-40) % Moore % (Auto) 10.0 (2-11) % Eos % (Auto) 2.1 (0-4) % Baso % (Auto) 0.4 (0-2) % Lymph # (Auto) 2.7 (1.2-4.9) X10*3/uL Moore # (Auto) 1.3 H (0.1-1.2) X10*3/uL Eos # (Auto) 0.3 (0.0-0.4) X10*3/uL Baso # (Auto) 0.1 (0.0-0.2) X10*3/uL Abs Immat Gran (auto) 0.07 H (0.00-0.03) X10*3/uL Absolute Neuts (auto) 8.4 H (2.0-8.3) X10*3/uL Absolute Nucleated RBC 0.000 (0.0-0.012) X10*3/uL Nucleated RBC % (auto) 0.0 (0.0-0.2) /100WBC Sodium 135 (135-145) mmol/L Potassium 4.1 (3.3-5.1) mmol/L Chloride 100 (96-108) mmol/L Carbon Dioxide 27 (22-29) mmol/L Anion Gap 12 (12-20) BUN 35 H D (9-16) mg/dL Creatinine 1.72 H (0.5-1.4) mg/dL Estim Creat Clear Calc 37.7 Estimated GFR 30 Random Glucose 132 H (60-115) mg/dL Calcium 8.7 D (8.4-10.2) mg/dL Troponin I High Sens < 3.5 (<3.5-17.0) ng/L 07/25/20 Range/Units 01:15 WBC (4.8-10.8) X10*3/uL RBC (4.20-5.50) X10*6/uL Hgb (12.0-16.0) g/dl Hct (37-47) % MCV (80-98) fL MCH (27.0-33.0) pg MCHC (31.0-35.0) g/dl RDW (11.0-16.0) % Plt Count (160-400) X10*3/uL MPV (9.4-12.3) fL Immature Gran % (Auto) (0.0-0.4) % Neut % (Auto) (45-73) % Lymph % (Auto) (20-40) % Moore % (Auto) (2-11) % Eos % (Auto) (0-4) % Baso % (Auto) (0-2) % Lymph # (Auto) (1.2-4.9) X10*3/uL Moore # (Auto) (0.1-1.2) X10*3/uL Eos # (Auto) (0.0-0.4) X10*3/uL Baso # (Auto) (0.0-0.2) X10*3/uL Abs Immat Gran (auto) (0.00-0.03) X10*3/uL Absolute Neuts (auto) (2.0-8.3) X10*3/uL Absolute Nucleated RBC (0.0-0.012) X10*3/uL Nucleated RBC % (auto) (0.0-0.2) /100WBC Sodium 139 (135-145) mmol/L Potassium 4.1 (3.3-5.1) mmol/L Chloride 105 (96-108) mmol/L Carbon Dioxide 28 (22-29) mmol/L Anion Gap 10 L (12-20) BUN 33 H (9-16) mg/dL Creatinine 1.47 H (0.5-1.4) mg/dL Estim Creat Clear Calc 44.0 Estimated GFR 35 Random Glucose 99 (60-115) mg/dL Calcium 7.9 L D (8.4-10.2) mg/dL Troponin I High Sens (<3.5-17.0) ng/L ECG Data Attestation: I personally reviewed and interpreted this ECG as follows: (Sinus rhythm, heart rate 61, nonspecific ST segment changes in leads V4 through V6, no T-wave inversions, QTC 448) Discharge Plan Discharge Clinical Impression: Medication side effect Patient Disposition: Home, Self-Care Additional Instructions: Please avoid using other people's medication. The muscle relaxant I used was too strong for you, causing your blood pressure dropped. Please follow-up with your primary care physician tomorrow. If you have any worsening or new symptoms, please return to the emergency room or call 911 Prescriptions: No Action primidone 50 mg tablet 1 tab PO BID RF: 0 citalopram 40 mg tablet 1 tab PO DAILY RF: 0 spironolacton-hydrochlorothiaz 25-25 mg tablet 1 tab PO DAILY RF: 0 loperamide 2 mg Tablet 2 mg PO QID PRN (Reason: Diarrhea) RF: 0 simvastatin 20 mg tablet 1 tab PO BEDTIME RF: 0 levothyroxine 125 mcg tablet 1 tab PO DAILY RF: 0 aspirin 81 mg Tablet,Chewable 81 mg PO DAILY RF: 0 ammonium lactate 12 % Cream 1 appl TOPICAL DAILY RF: 0 fluticasone propionate 50 mcg/actuation [place],Suspension 2 spray INTRANASAL DAILY RF: 0 clotrimazole 1 % Cream 1 appl TOPICAL BID RF: 0 insulin lispro 100 unit/mL Insulin Pen See Rx Instructions unit .ROUTE .COMPLEX RF: 0 bupropion HCl 300 mg tablet extended release 24 hr 1 tab PO QAM RF: 0 insulin glargine 100 unit/mL (3 mL) Insulin Pen 73 unit SUBCUT BID RF: 0 (DME) pen needle, diabetic [Novofine 32] 32 gauge x 1/4 Needle MISCELLANEOUS RF: 0 Imitrex RF: 0 nystatin 1 applic topical QWEEK RF: 0 amoxicillin-pot clavulanate [Augmentin] 500-125 mg tablet 1 tab PO BID Qty: 6 RF: 0
[2020-07-24 21:28] VITALS: BP 86/49; PULSE 72; RESP 16; TEMP 36.4; O2SAT 95
--- NOTE | 2020-07-24 21:29 | PC.NURSE ---
MD CHAU AWARE OF PATIENT LOW BLOOD PRESSURE .
--- NOTE | 2020-07-24 21:34 | PC.NURSE ---
pt's daughter called, wanted update. daughter concerned that pt had body weakness and slurred speech. pt placed on phone to differentiate between pt's slow speech vs slurred speech. pt has no facial droop or weakness at this time. medication pt took 1 hour before onset of symptoms was zanaflex. symptoms began at 6pm.
[2020-07-24 21:41] LABS: Anion Gap 12 (12-20); Blood Urea Nitrogen 35 mg/dL (9-16); Calcium 8.7 mg/dL (8.4-10.2); Carbon Dioxide 27 mmol/L (22-29); Chloride 100 mmol/L (96-108); Creatinine Clr Calc Pharmacy 37.7; Estimated Glomerular Filt Rate 30; Glucose Random 132 mg/dL (60-115); Potassium 4.1 mmol/L (3.3-5.1); Sodium 135 mmol/L (135-145)
[2020-07-24] MEDS: 0.9 % Sodium Chloride 1,000 ML 999 ML IVCONT (22:03)
[2020-07-24 22:56] LABS: Troponin-I High Sensitivity < 3.5 ng/L (<3.5-17.0)
[2020-07-24 23:53] VITALS: BP 110/53; PULSE 62; RESP 17; O2SAT 96
[2020-07-24 23:55] VITALS: BP 106/49; PULSE 63; RESP 15; O2SAT 96
[2020-07-25] MEDS: 0.9 % Sodium Chloride 1,000 ML 999 ML IVCONT (00:10)
[2020-07-25 01:54] LABS: Anion Gap 10 (12-20); Blood Urea Nitrogen 33 mg/dL (9-16); Calcium 7.9 mg/dL (8.4-10.2); Carbon Dioxide 28 mmol/L (22-29); Chloride 105 mmol/L (96-108); Estimated Glomerular Filt Rate 35; Glucose Random 99 mg/dL (60-115); Potassium 4.1 mmol/L (3.3-5.1); Sodium 139 mmol/L (135-145)
--- NOTE | 2020-07-25 02:20 | PC.NURSE ---
PT AWAKE AND ALERT, SEATED UPRIGHT WITHOUT COMPLAINT OF DIZZINESS. PLAN IS FOR DISCHARGE, CALLED FOR RIDE. PT ENJOYING [employer]. PT DID VOID INTO BEDPAN HOURS AGO.
[2020-07-25 02:34] VITALS: BP 119/53; PULSE 64; RESP 15; O2SAT 98
--- NOTE | 2020-07-25 02:50 | PC.NURSE ---
pt ambulatory to bathroom with steady gait, no complaint of dizziness or weakness. pt's skin warm/pink/dry. daughter came to give patient ride home.
--- NOTE | 2020-07-25 02:53 | PC.NURSE ---
pt's speech clear, pt answering questions appropriately.
== END 2020-07-25 02:56 | disposition home or self-care (01) ==
PROVIDERS: Emergency Provider Emergency Medicine; PCP Internal Medicine
DX: I95.2 Hypotension due to drugs (principal); E11.9 Type 2 diabetes mellitus without complications; I10 Essential (primary) hypertension; Z79.899 Other long term (current) drug therapy; Z79.4 Long term (current) use of insulin; Z79.82 Long term (current) use of aspirin
CPT/HCPCS: 36415; 80048; 84484; 85025; 93005; 96360; 99284; 99285

== ENCOUNTER 2022-02-02 10:46 | Outpatient (REF) | payer MEDICARE, SELFPAY ==
[2022-02-02 10:59] LABS: MANUAL DIFF FLAG NO
[2022-02-02 11:06] LABS: Basophils Absolute Auto 0.1 X10*3/uL (0.0-0.2); Basophils Percent Auto 0.3 % (0-2); Eosinophils Absolute Auto 0.2 X10*3/uL (0.0-0.4); Eosinophils Percent Auto 1.7 % (0-4); Hematocrit 38.6 % (37.0-47.0); Hemoglobin 12.8 g/dl (12.0-16.0); Imm Gran Abs Auto 0.13 X10*3/uL (0.00-0.03); Imm Gran Pct Auto 0.9 % (0.0-0.4); Lymphocytes Absolute Auto 2.8 X10*3/uL (1.2-4.9); Lymphocytes Percent Auto 19.7 % (20-40); Mean Corpuscular HGB Conc 33.2 g/dl (31.0-35.0); Mean Corpuscular Hemoglobin 30.2 pg (27.0-33.0); Mean Platelet Volume 11.2 fL (9.4-12.3); Monocytes Absolute Auto 1.1 X10*3/uL (0.1-1.2); Monocytes Percent Auto 7.8 % (2-11); Neutrophils Percent Auto 69.6 % (45-73); Platelet Count 450 X10*3/uL (160-400); Red Blood Count 4.24 X10*6/uL (4.20-5.50); Red Cell Distribution Width 14.2 % (11.0-16.0); White Blood Count 14.3 X10*3/uL (4.8-10.8)
[2022-02-02 11:14] LABS: Ammonia 26 umol/L (13-55)
[2022-02-02 11:20] LABS: Anion Gap 19 (12-20); Blood Urea Nitrogen 23 mg/dL (9-16); Calcium 9.5 mg/dL (8.4-10.2); Carbon Dioxide 26 mmol/L (22-29); Chloride 97 mmol/L (96-108); Estimated Glomerular Filt Rate 32; Glucose Random 256 mg/dL (60-115); Potassium 4.6 mmol/L (3.3-5.1); Sodium 137 mmol/L (135-145)
[2022-02-02 11:21] LABS: Estimated Average Glucose 177 mg/dL; Hemoglobin A1c % 7.8 %
[2022-02-02 11:43] LABS: T4 Thyroxine 10.4 ug/dL (4.5-12.0); Thyroid Stimulating Hormone 3.09 uIU/mL (0.32-4.0)
== END 2022-02-02 10:47 | disposition home or self-care (01) ==
LOC: HO.LAB 10:46
PROVIDERS: PCP Internal Medicine; Visit Provider Psychiatry & Neurology Neurology
DX: R25.1 Tremor, unspecified (principal)
CPT/HCPCS: 36415; 80048; 82140; 83036; 84436; 84443; 85025

== ENCOUNTER 2022-09-27 16:31 | Inpatient (IN) | payer MEDICARE, SELFPAY ==
--- NOTE | ~2022-09-27 | CT_ITS ---
EXAMINATION: CT ABDOMEN AND PELVIS WITH CONTRAST CLINICAL INFORMATION: Fever COMPARISON: 03/27/2018 TECHNIQUE: Multidetector volumetric images were obtained from the superior aspect of the liver through the pubic symphysis following administration 85 mL of Omnipaque 350 intravenous contrast. Sagittal and coronal reformatted images were obtained on the technologist's workstation. Oral contrast: No This CT examination was performed using dose optimization techniques as appropriate, variously including the following: *Automated exposure control *Adjustment of mA and/or kV according to patient size (this includes techniques or standardized protocols for targeted exams where dose is matched to indication/reason for exam; i.e. extremities or head) *Use of iterative reconstruction technique DLP: 961 mGy-cm FINDINGS: LUNG BASES: Chronic round atelectasis/pleural parenchymal scarring in the posteromedial lower lobes bilaterally with accompanying pleural calcifications. LIVER, GALLBLADDER, AND BILIARY TREE: The liver is normal in size, shape, and attenuation. No focal hepatic lesion or biliary ductal dilatation is present. Cholecystectomy. PANCREAS: Unremarkable. SPLEEN: Unremarkable. ADRENAL GLANDS: Unremarkable. KIDNEYS AND URETERS: The kidneys are normal in size, shape, and attenuation. No hydronephrosis, hydroureter, or calculi seen. No perinephric stranding. BLADDER: Unremarkable. GASTROINTESTINAL TRACT: There are a few scattered colonic. No evidence of diverticulitis. Normal appendix. Stomach and small bowel unremarkable. ABDOMINAL WALL: No significant hernia is appreciated. LYMPH NODES: Normal. VASCULAR: Unremarkable. PELVIC VISCERA: Uterus and adnexa unremarkable. There is a 1.9 cm simple appearing right ovarian cyst. No follow-up imaging recommended. OSSEOUS STRUCTURES: Unremarkable. CT/CT abdomen pelvis w IV con IMPRESSION: * No acute findings within the abdomen or pelvis to explain the patient's symptomatology. * There are a few scattered colonic diverticula without evidence of diverticulitis. * Cholecystectomy.
--- NOTE | ~2022-09-27 | XR_ITS ---
EXAMINATION: XR CHEST CLINICAL INFORMATION: Pain COMPARISON: 07/06/2020 TECHNIQUE: Frontal view of the chest was obtained. FINDINGS: Lung volumes are symmetric. No focal consolidation is seen. No evidence of pneumothorax, significant pleural effusion, or overt pulmonary edema. The cardiomediastinal contour is unremarkable. Clips are present in the lower left chest wall/axillary region. No acute osseous findings are seen. XR/XR chest 1V IMPRESSION: No acute cardiopulmonary findings.
--- NOTE | ~2022-09-27 | CT_ITS ---
EXAMINATION: CT HEAD WITHOUT CONTRAST CLINICAL INFORMATION: Altered, history of complex migraine COMPARISON: 07/06/2020 TECHNIQUE: Contiguous axial imaging was performed from the skull base to vertex without intravenous administration of contrast. This CT examination was performed using dose optimization techniques as appropriate, variously including the following: *Automated exposure control *Adjustment of mA and/or kV according to patient size (this includes techniques or standardized protocols for targeted exams where dose is matched to indication/reason for exam; i.e. extremities or head) *Use of iterative reconstruction technique DLP: 884 mGy-cm FINDINGS: There is no evidence of acute intracranial hemorrhage or territorial infarction. No abnormal mass-effect or midline shift is seen. Hinojosa to white matter differentiation is well preserved. No extra-axial fluid collections are identified. The ventricles are normal in size. There is mild periventricular white matter hypoattenuation consistent with chronic small vessel ischemic disease. Mild volume loss is noted. The osseous structures and soft tissues are normal. The mastoid air cells and visualized portions of the paranasal sinuses are well-aerated. CT/CT head/brain wo IV con IMPRESSION: No acute intracranial pathology. Mild chronic small vessel ischemic disease and volume loss.
--- NOTE | 2022-09-27 16:48 | ECG_ITS ---
Test Reason : altered mental Blood Pressure : / mmHG Vent. Rate : 119 BPM Atrial Rate : 119 BPM P-R Int : 164 ms QRS Dur : 082 ms QT Int : 328 ms P-R-T Axes : 017 054 037 degrees QTc Int : 461 ms Sinus tachycardia Nonspecific ST abnormality Abnormal ECG When compared with ECG of 24-JUL-2020 21:18, Vent. rate has increased BY 58 BPM Referred By: Kevon Castellon Electronically Signed By:NICHELLE DREW
[2022-09-27] MEDS: diphenhydrAMINE HCL 50 MG/ML VIAL IM (16:55)
[2022-09-27] MEDS: LORazepam 2 MG/ML VIAL IM (16:55)
[2022-09-27 17:00] VITALS: PULSE 111; RESP 22; TEMP 36.9; O2SAT 94; BMI 42.3
[2022-09-27 17:04] LABS: Glucose, Whole Blood 121 mg/dL (60-115)
--- NOTE | 2022-09-27 17:05 | ED.NEUROSD ---
HPI - Neuro Symptoms/Deficit General Chief Complaint: Stroke Stated Complaint: slurred speech, blurry vision, migraine Time Seen by Provider: 09/27/22 16:48 Source: patient, family (daughter), RN notes reviewed, old records reviewed and other (outside hospital records) Mode of arrival: ambulatory Limitations: altered mental status History of Present Illness HPI Narrative: 72-year-old female past medical history significant for insulin-dependent diabetes, hypertension, hyperlipidemia, complex migraines follow with Dr. Osorio presents for evaluation of altered mental status. Apparently 15 minutes prior to arrival the patient became agitated, restless the daughter reported slurred speech Apparently this is an identical presentation to when the patient has complex migraines At baseline the patient is awake, and oriented, able to answer questions appropriately The time my evaluation she does not respond to commands but is quite restless, she is moving all extremities well, there is no facial droop and her speech is clear but she continues psis date ?help me. ? Per the daughter, the patient was admitted to [facility] and July of this year. In attempting to get records, the most recent records that were provided with were from February of last year. The patient was discharged on 02/10/22. She was admitted due to metabolic encephalopathy which was felt related to MAGGY. She had a neuro consult on 02/06/2022 which recommended ambulatory EEG. This EEG was completed without any a abnormal findings. CT scan the brain did not show any significant abnormalities. The patient's daughter reports that the patient has had numerous CAT scans and MRIs of her brain and ?nobody can never find anything. ? Related Data Home Medications Medication Instructions Recorded Confirmed Imitrex 07/06/20 ammonium lactate 12 % topical cream 1 appl topical DAILY 07/06/20 07/06/20 aspirin 81 mg chewable tablet 81 mg PO DAILY 07/06/20 07/06/20 bupropion HCl 300 mg 24 hr tablet, 1 tab PO QAM 07/06/20 07/06/20 extended release citalopram 40 mg tablet 1 tab PO DAILY 07/06/20 07/06/20 clotrimazole 1 % topical cream 1 appl topical BID 07/06/20 07/06/20 fluticasone propionate 50 2 spray intranasal DAILY 07/06/20 07/06/20 mcg/actuation nasal spray,suspension insulin glargine 100 unit/mL (3 73 unit subcut BID 07/06/20 07/06/20 mL) subcutaneous pen insulin lispro 100 unit/mL See Rx Instructions .Route .COMPLEX 07/06/20 07/06/20 subcutaneous pen levothyroxine 125 mcg tablet 1 tab PO DAILY 07/06/20 07/06/20 loperamide 2 mg tablet 2 mg PO QID PRN Diarrhea 07/06/20 07/06/20 nystatin 1 applic topical QWEEK 07/06/20 07/06/20 pen needle, diabetic 32 gauge x 07/06/20 07/06/2005/13 (Novofine 32) primidone 50 mg tablet 1 tab PO BID 07/06/20 07/06/20 simvastatin 20 mg tablet 1 tab PO BEDTIME 07/06/20 07/06/20 spironolactone 25 1 tab PO DAILY 07/06/20 07/06/20 mg-hydrochlorothiazide 25 mg tablet Previous Rx's Medication Instructions Recorded amoxicillin 500 mg-potassium 1 tab PO BID #6 tabs 07/09/20 clavulanate 125 mg tablet (Augmentin) Allergies Allergy/AdvReac Type Severity Reaction Status Date / Time Iodinated Contrast Media Allergy Severe SEDATION,TA Verified 07/24/20 19:30 [IVP DYE] CHYCARDIA erythromycin base Allergy Unknown HIVES Verified 07/24/20 19:30 [ERYTHROMYCIN BASE] Review of Systems Review of Systems: Review of systems is limited given the patient's presentation Constitutional: Constitutional: Denies fever(s) and Reports headache(s) ENT: Reports headache(s) Respiratory: Respiratory: Denies cough Gastrointestinal: Gastrointestinal: Denies abdominal pain, Denies nausea and Denies vomiting Neurologic: Denies Abnormal speech present, Reports confusion and Reports headache(s) Psychiatric: Psychiatric: Reports confusion and Reports irritability PMFSH Past Medical History Medical History Complicated migraine Diabetes HLD (hyperlipidemia) HTN (hypertension) Hypothyroid Surgical History H/O section Hx of cholecystectomy Family History Family History Other Lung cancer Social History Social History Household Members: Spouse Housing: Unknown / Unable to assess Unable to assess alcohol history related to: Unknown Alcohol intake: former Smoked in Last 30 Days: No Use of substances other than those prescribed or required for medical reasons: No Advance Directives: No Advance Directives Information Provided: No service: No Current occupational status: retired Physical Exam Vital Signs: Vital Signs: Last Vital Signs Temp 98.6 F 09/27/22 20:52 Pulse 112 H 09/27/22 20:52 Resp 15 09/27/22 20:52 BP 153/90 H 09/27/22 20:52 Pulse Ox 95 09/27/22 20:52 O2 Del Method Room Air 09/27/22 20:52 BMI result Body Mass Index 42.3 Const: General: well developed and confusion; No cooperative or comfortable Orientation/consciousness: oriented to person, No oriented to place, No oriented to time and confusion Limitations: altered mental status and behavioral limitations HEENT: Head: Yes normocephalic and Yes atraumatic Eyes: Alignment and Position: alignment normal Periorbital: periorbital findings normal Conjunctivae: conjunctivae normal Pupils: Equal, round and reactive pupils present and Pupils normal by confrontation EOM: EOMs intact bilaterally Neck: Neck: No no meningeal signs Resp: Effort & Inspection: normal respiratory effort and able to speak in complete sentences GI: Inspection: No distended Palpation (GI): Soft to palpation, nontender and no guarding Skin: General skin exam: no rashes or lesions noted Neuro: General: oriented to person, No oriented to place, No oriented to time, No no meningeal signs, No no focal motor deficits, confusion and Unable to assess gait Cranial nerves: Yes Equal, round and reactive pupils present Speech: No Abnormal speech present Gait exam (Neuro): Unable to assess gait Motor exam (neuro): 5/5 motor strength present throughout Course Reevaluation(s) Reevaluation #1: Patient continues to be restless and uncooperative/confused. She has been medicated with a total of Ativan 4 mg, Haldol 5 mg and Benadryl 50 mg. Her blood work is without any significant abnormalities to explain her symptoms. Patient's family reports that this is the same presentation the patient always has when she has her complex migraines. They are not sure what the treatment that has worked in the past. Still awaiting CT scan of the brain, tox screen. Time: 20:02 Reevaluation #2: I discussed with CT scan, and they felt that the patient was a fall risk off the CT table due to the patient's movements despite being asleep. The patient has been medicated twice for her restlessness. She continues to move her legs quite a bit but is not trying to get out of bed. We were finally able to get the CT scan of her head done to rule out intracranial hemorrhage. The patient's vital signs remain unchanged, she slightly tachycardic but otherwise no significant abnormalities. Patient's tox screen is negative, UA negative. Chest x-ray is also pending at this time Time: 22:20 Reevaluation #3: Patient's restlessness is slowly improving. She is now sleeping comfortably. Her tachycardia has improved Time: 23:42 Additional Reevaluation(s): Patient continues to rest comfortably, vital signs within normal limits. Patient is now sedated, she does not awaken to converse. Will discuss with the hospitalists for admission of metabolic encephalopathy. I did discuss with Dr Hsu for admission. She feels that since the patient has had multiple similar episodes in the past and has no new physical exam findings, radiology findings, or laboratory findings, we can observe her in the ER and if she is altered when she wakes up, then she can be admitted. The patient was evaluated by the hospitalist, Dr Hsu, who felt the patient was appropriate for admission after seeing her. She did request a rectal temperature and an ABG prior to the admission. Patient noted to be febrile on re-evaluation to 103.2 rectally. She was given rectal Tylenol. Blood cultures and lactic acid was ordered. Given that we do not have a source, CT scan of the abdomen pelvis was obtained. I did relay this information to Dr. Adam at Medications Administered Discontinued Medications Generic Name Dose Route Start Last Admin Trade Name Freq PRN Reason Stop Dose Admin Diphenhydramine HCl 50 mg 09/27/22 16:47 09/27/22 16:55 Diphenhydramine Hcl 50 Mg/Ml Vial IM 09/27/22 16:48 50 mg ONCE ONE Administration Haloperidol Lactate 5 mg 09/27/22 18:29 05/21/23 18:33 Haloperidol Lactate 5 Mg/Ml Vial IM 09/27/22 18:30 5 mg STAT STA Administration Sodium Chloride 1,000 mls @ 999 mls/hr 09/27/22 20:00 09/27/22 21:06 Ns IV 09/27/22 21:00 Infused .Q1H1M CARLOTTA Infusion Lorazepam 2 mg 09/27/22 16:47 09/27/22 16:55 Lorazepam 2 Mg/Ml Vial IM 09/27/22 16:48 2 mg ONCE ONE Administration Lorazepam 2 mg 09/27/22 18:29 09/27/22 18:30 Lorazepam 2 Mg/Ml Vial IVPUSH 09/27/22 18:30 2 mg ONCE ONE Administration Medical Decision Making Medical Decision Making [facility] Narrative: 72-year-old female with a history of metal wall cephalopathy, complex migraines presents for evaluation of altered mental status and restlessness. We do not have a lot of records at this facility, but I was able to get some records from [facility]. The patient was admitted in February of last year for metabolic encephalopathy felt to be related to MAGGY. Apparently the patient has had numerous CAT scans and MRIs without significant findings. I do not have access to those records at this time. Currently the patient seemed confused but has no focal deficits. She is moving all extremities well, I do not appreciate any slurred speech. There is no facial droop. Will get a CT scan of the brain. Given the patient's restlessness at the time of evaluation, we were unable to do workup at this time. I discussed with the daughter and she is comfortable with us medication the patient to help facilitate workup. The patient was given Ativan 2 mg IM and Benadryl 50 mg IM. Plan for labs and CT scan at this time. Differential Diagnosis Complex migraine Metabolic encephalopathy CVA Intracranial hemorrhage Lab Data 09/27/22 18:18 09/27/22 18:18 Labs: Lab Results 09/27/22 09/27/22 09/27/22 Range/Units 16:49 18:18 18:18 WBC 11.5 H (4.8-10.8) X10*3/uL RBC 4.32 (4.20-5.50) X10*6/uL Hgb 12.8 (12.0-16.0) g/dl Hct 38.0 (37.0-47.0) % MCV 88.0 (80.0-98.0) fL MCH 29.6 (27.0-33.0) pg MCHC 33.7 (31.0-35.0) g/dl RDW 12.3 (11.0-16.0) % Plt Count 267 D (160-400) X10*3/uL MPV 11.2 (9.4-12.3) fL Immature Gran % (Auto) 0.4 (0.0-0.4) % Neut % (Auto) 69.5 (45-73) % Lymph % (Auto) 20.7 (20-40) % Branch % (Auto) 8.0 (2-11) % Eos % (Auto) 1.2 (0-4) % Baso % (Auto) 0.2 (0-2) % Lymph # (Auto) 2.4 (1.2-4.9) X10*3/uL Branch # (Auto) 0.9 (0.1-1.2) X10*3/uL Eos # (Auto) 0.1 (0.0-0.4) X10*3/uL Baso # (Auto) 0.0 (0.0-0.2) X10*3/uL Abs Immat Gran (auto) 0.05 H (0.00-0.03) X10*3/uL Absolute Neuts (auto) 8.0 (2.0-8.3) x10*3/uL Absolute Nucleated RBC 0.000 (0.0-0.012) X10*3/uL Nucleated RBC % (auto) 0.0 (0.0-0.2) /100WBC PT 10.9 (10.0-13.1) SEC INR 1.0 (0.9-1.1) APTT 29.6 (26.0-36.4) SEC O2 Saturation % ABG pH at Pt Temp (7.35-7.45) ABG pCO2 at Pt Temp (32-45) mmHg ABG pO2 at Pt Temp (83-108) mmHg ABG HCO3 (22-26) mmol/L ABG Base Excess (Actual) mmol/L Sodium (135-145) mmol/L Potassium (3.3-5.1) mmol/L Chloride (96-108) mmol/L Carbon Dioxide (22-29) mmol/L Anion Gap (12-20) BUN (9-16) mg/dL Creatinine (0.5-1.4) mg/dL Estim Creat Clear Calc Estimated GFR POC Glucose 121 H (60-115) mg/dL Random Glucose (60-115) mg/dL Calcium (8.4-10.2) mg/dL Total Bilirubin (0.0-1.0) mg/dL AST (5-31) U/L ALT (0-31) U/L Alkaline Phosphatase (39-117) U/L Total Protein (6.5-8.0) g/dL Albumin (3.5-5.0) g/dL Lipase (8-78) U/L Urine Color Urine Appearance Urine pH (5.0-9.0) Ur Specific [place] (1.005-1.025) Urine Protein (Neg-Trace) mg/dL Urine Glucose (UA) (Negative) mg/dL Urine Ketones (Negative) mg/dL Urine Blood (Negative) Urine Nitrite (Negative) Ur Leukocyte Esterase (Negative) Urine RBC (0-2) /HPF Urine WBC (0-5) /HPF Ur Squamous Epith Cells (0-2) /HPF Urine Bacteria (None Seen) Hyaline Casts (0-2) /LPF Urine Opiates Screen (Not Detect) Urine Fentanyl Screen (Not Detect) Ur Barbiturates Screen (Not Detect) Ur Phencyclidine Scrn (Not Detect) Ur Amphetamines Screen (Not Detect) U Benzodiazepines Scrn (Not Detect) Urine Cocaine Screen (Not Detect) U Marijuana (THC) Screen (Not Detect) Ethyl Alcohol mg/dL COVID-19 (MARI) (Negative) COVID-19 Clin Com 09/27/22 09/27/22 09/27/22 Range/Units 18:18 21:21 21:21 WBC (4.8-10.8) X10*3/uL RBC (4.20-5.50) X10*6/uL Hgb (12.0-16.0) g/dl Hct (37.0-47.0) % MCV (80.0-98.0) fL MCH (27.0-33.0) pg MCHC (31.0-35.0) g/dl RDW (11.0-16.0) % Plt Count (160-400) X10*3/uL MPV (9.4-12.3) fL Immature Gran % (Auto) (0.0-0.4) % Neut % (Auto) (45-73) % Lymph % (Auto) (20-40) % Branch % (Auto) (2-11) % Eos % (Auto) (0-4) % Baso % (Auto) (0-2) % Lymph # (Auto) (1.2-4.9) X10*3/uL Branch # (Auto) (0.1-1.2) X10*3/uL Eos # (Auto) (0.0-0.4) X10*3/uL Baso # (Auto) (0.0-0.2) X10*3/uL Abs Immat Gran (auto) (0.00-0.03) X10*3/uL Absolute Neuts (auto) (2.0-8.3) x10*3/uL Absolute Nucleated RBC (0.0-0.012) X10*3/uL Nucleated RBC % (auto) (0.0-0.2) /100WBC PT (10.0-13.1) SEC INR (0.9-1.1) APTT (26.0-36.4) SEC O2 Saturation % ABG pH at Pt Temp (7.35-7.45) ABG pCO2 at Pt Temp (32-45) mmHg ABG pO2 at Pt Temp (83-108) mmHg ABG HCO3 (22-26) mmol/L ABG Base Excess (Actual) mmol/L Sodium 141 (135-145) mmol/L Potassium 4.0 (3.3-5.1) mmol/L Chloride 105 (96-108) mmol/L Carbon Dioxide 25 (22-29) mmol/L Anion Gap 15 (12-20) BUN 26 H (9-16) mg/dL Creatinine 1.08 (0.5-1.4) mg/dL Estim Creat Clear Calc 61.4 Estimated GFR 50 POC Glucose (60-115) mg/dL Random Glucose 126 H (60-115) mg/dL Calcium 9.3 (8.4-10.2) mg/dL Total Bilirubin 1.3 H (0.0-1.0) mg/dL AST 33 H (5-31) U/L ALT 38 H (0-31) U/L Alkaline Phosphatase 119 H (39-117) U/L Total Protein 7.0 (6.5-8.0) g/dL Albumin 3.9 (3.5-5.0) g/dL Lipase 13 (8-78) U/L Urine Color Yellow Urine Appearance Clear Urine pH 5.0 (5.0-9.0) Ur Specific [place] 1.020 (1.005-1.025) Urine Protein Negative (Neg-Trace) mg/dL Urine Glucose (UA) Negative (Negative) mg/dL Urine Ketones Negative (Negative) mg/dL Urine Blood Negative (Negative) Urine Nitrite Negative (Negative) Ur Leukocyte Esterase Negative (Negative) Urine RBC 0-2 (0-2) /HPF Urine WBC 0-5 (0-5) /HPF Ur Squamous Epith Cells 0-2 (0-2) /HPF Urine Bacteria None Seen (None Seen) Hyaline Casts 0-2 (0-2) /LPF Urine Opiates Screen (Not Detect) Urine Fentanyl Screen (Not Detect) Ur Barbiturates Screen (Not Detect) Ur Phencyclidine Scrn (Not Detect) Ur Amphetamines Screen (Not Detect) U Benzodiazepines Scrn (Not Detect) Urine Cocaine Screen (Not Detect) U Marijuana (THC) Screen (Not Detect) Ethyl Alcohol < 10 mg/dL COVID-19 (MARI) Negative (Negative) COVID-19 Clin Com See Note 09/27/22 09/28/22 Range/Units 21:21 01:03 WBC (4.8-10.8) X10*3/uL RBC (4.20-5.50) X10*6/uL Hgb (12.0-16.0) g/dl Hct (37.0-47.0) % MCV (80.0-98.0) fL MCH (27.0-33.0) pg MCHC (31.0-35.0) g/dl RDW (11.0-16.0) % Plt Count (160-400) X10*3/uL MPV (9.4-12.3) fL Immature Gran % (Auto) (0.0-0.4) % Neut % (Auto) (45-73) % Lymph % (Auto) (20-40) % Branch % (Auto) (2-11) % Eos % (Auto) (0-4) % Baso % (Auto) (0-2) % Lymph # (Auto) (1.2-4.9) X10*3/uL Branch # (Auto) (0.1-1.2) X10*3/uL Eos # (Auto) (0.0-0.4) X10*3/uL Baso # (Auto) (0.0-0.2) X10*3/uL Abs Immat Gran (auto) (0.00-0.03) X10*3/uL Absolute Neuts (auto) (2.0-8.3) x10*3/uL Absolute Nucleated RBC (0.0-0.012) X10*3/uL Nucleated RBC % (auto) (0.0-0.2) /100WBC PT (10.0-13.1) SEC INR (0.9-1.1) APTT (26.0-36.4) SEC O2 Saturation 96.0 % ABG pH at Pt Temp 7.52 H (7.35-7.45) ABG pCO2 at Pt Temp 32 (32-45) mmHg ABG pO2 at Pt Temp 76 L (83-108) mmHg ABG HCO3 26 (22-26) mmol/L ABG Base Excess (Actual) 4.4 mmol/L Sodium (135-145) mmol/L Potassium (3.3-5.1) mmol/L Chloride (96-108) mmol/L Carbon Dioxide (22-29) mmol/L Anion Gap (12-20) BUN (9-16) mg/dL Creatinine (0.5-1.4) mg/dL Estim Creat Clear Calc Estimated GFR POC Glucose (60-115) mg/dL Random Glucose (60-115) mg/dL Calcium (8.4-10.2) mg/dL Total Bilirubin (0.0-1.0) mg/dL AST (5-31) U/L ALT (0-31) U/L Alkaline Phosphatase (39-117) U/L Total Protein (6.5-8.0) g/dL Albumin (3.5-5.0) g/dL Lipase (8-78) U/L Urine Color Urine Appearance Urine pH (5.0-9.0) Ur Specific [place] (1.005-1.025) Urine Protein (Neg-Trace) mg/dL Urine Glucose (UA) (Negative) mg/dL Urine Ketones (Negative) mg/dL Urine Blood (Negative) Urine Nitrite (Negative) Ur Leukocyte Esterase (Negative) Urine RBC (0-2) /HPF Urine WBC (0-5) /HPF Ur Squamous Epith Cells (0-2) /HPF Urine Bacteria (None Seen) Hyaline Casts (0-2) /LPF Urine Opiates Screen Not Detected (Not Detect) Urine Fentanyl Screen Not Detected (Not Detect) Ur Barbiturates Screen Not Detected (Not Detect) Ur Phencyclidine Scrn Not Detected (Not Detect) Ur Amphetamines Screen Not Detected (Not Detect) U Benzodiazepines Scrn Not Detected (Not Detect) Urine Cocaine Screen Not Detected (Not Detect) U Marijuana (THC) Screen Not Detected (Not Detect) Ethyl Alcohol mg/dL COVID-19 (MARI) (Negative) COVID-19 Clin Com Independent Interpretation I performed an independent interpretation of an: Plain X-Ray (no focal infiltrates) Radiology Impression Discussion of test interpretation with radiology: I have reviewed the radiologist's reading. (ct brain without acute abnormality) Discharge Plan Discharge Clinical Impression: Acute metabolic encephalopathy Patient Disposition: Admitted As Inpatient
--- NOTE | 2022-09-27 17:11 | PC.NURSE ---
Arrived from home transported by daughter. Daughter states they were shopping and on their way home when her mom was suddenly unable to speak. Daughter stated from time of onset until they reached [facility] was 15 minutes. Upon presenting to ED alert sitting in wheelchair but unable to have meaningful speech. Seen by provider and brought to cat scan (no protocol initiated) Placed on cat scan table and became restless, kicking and turning from side to side. re- direction unsuccessful. Daughter states she has a long history of sudden onset migraines that cause her to act like this. Brought to room and continued to to be combative and restless despite constant re -direction. Medicated with Ativan and Benadryl. POC 121. Rectal temp 98.4. At this time this RN and daughter remain by side, pt intermittently calm with periods of continued agitation needing physical redirection. Unale to obtain BP as pt becomes agitated with cuff placement, will continue to attempt. Sat 99% on room air.
--- NOTE | 2022-09-27 18:02 | PC.NURSE ---
Ubrevly 100mg (2 tabs) will be given to pharmacy to hold pending dispo (in case of admission) as this med is nonformulary.
[2022-09-27 18:04] VITALS: PULSE 105; RESP 18; O2SAT 96
--- NOTE | 2022-09-27 18:07 | PC.NURSE ---
Daughter Ally`s number [phone] ebonie [phone]
[2022-09-27 18:24] LABS: MANUAL DIFF FLAG NO
[2022-09-27 18:25] LABS: Basophils Percent Auto 0.2 % (0-2); Eosinophils Absolute Auto 0.1 X10*3/uL (0.0-0.4); Eosinophils Percent Auto 1.2 % (0-4); Hemoglobin 12.8 g/dl (12.0-16.0); Imm Gran Abs Auto 0.05 X10*3/uL (0.00-0.03); Imm Gran Pct Auto 0.4 % (0.0-0.4); Lymphocytes Absolute Auto 2.4 X10*3/uL (1.2-4.9); Lymphocytes Percent Auto 20.7 % (20-40); Mean Corpuscular HGB Conc 33.7 g/dl (31.0-35.0); Mean Corpuscular Hemoglobin 29.6 pg (27.0-33.0); Mean Platelet Volume 11.2 fL (9.4-12.3); Monocytes Absolute Auto 0.9 X10*3/uL (0.1-1.2); Neutrophils Percent Auto 69.5 % (45-73); Platelet Count 267 X10*3/uL (160-400); Red Blood Count 4.32 X10*6/uL (4.20-5.50); Red Cell Distribution Width 12.3 % (11.0-16.0); White Blood Count 11.5 X10*3/uL (4.8-10.8)
[2022-09-27 18:30] VITALS: PULSE 123; RESP 22; O2SAT 94
[2022-09-27] MEDS: LORazepam 2 MG/ML VIAL IVPUSH (18:30)
[2022-09-27] MEDS: Haloperidol Lactate 5 MG/ML VIAL IM (18:33)
--- NOTE | 2022-09-27 18:34 | PC.NURSE ---
Blood drawn and iv placed in right ac. Patient became combative, trying to slide herself off the foot of the bed. All attempts at re -direction unsuccessful. Multiple staff assisted to safely reposition patient in bed. Soft restraints placed per provider order to bilateral upper extremities to maintain patients safety.IV in right ac infiltrated during med administration. Haldol given Im per provider order. Resting comfortably in bed at this time with at bedside.
[2022-09-27 18:53] LABS: Alanine Aminotransferase 38 U/L (0-31); Albumin Level 3.9 g/dL (3.5-5.0); Alkaline Phosphatase 119 U/L (39-117); Anion Gap 15 (12-20); Aspartate Amino Transferase 33 U/L (5-31); Bilirubin Total 1.3 mg/dL (0.0-1.0); Blood Urea Nitrogen 26 mg/dL (9-16); Calcium 9.3 mg/dL (8.4-10.2); Carbon Dioxide 25 mmol/L (22-29); Chloride 105 mmol/L (96-108); Creatinine Clr Calc Pharmacy 61.4; Estimated Glomerular Filt Rate 50; Ethanol < 10 mg/dL; Glucose Random 126 mg/dL (60-115); Lipase 13 U/L (8-78); Sodium 141 mmol/L (135-145)
[2022-09-27 19:06] LABS: Prothrombin Time 10.9 SEC (10.0-13.1)
[2022-09-27 19:08] LABS: Partial Thromboplastin Time 29.6 SEC (26.0-36.4)
--- NOTE | 2022-09-27 19:28 | PC.NURSE ---
Addendum entered by Henrietta Hayden 09/27/22 19:29: assumed care of pt Original Note: pt sleeping respirations even and unlabored
--- NOTE | 2022-09-27 19:31 | MHC.EDTECH ---
this pct assumed care of pt at 1900 ,unable to take ekg as patient is very restless and id moving around ,rn and provider aware .
[2022-09-27] MEDS: 0.9 % Sodium Chloride 1,000 ML 999 ML IV (20:03)
[2022-09-27 20:52] VITALS: BP 153/90; PULSE 112; RESP 15; TEMP 37; O2SAT 95
--- NOTE | 2022-09-27 20:55 | MHC.EDTECH ---
PATIENT EKG TAKEN AND WAS READ BY PROVIDER ,BLADDER SCAN DONE ,VITALS SIGN TAKEN PATIENT IS STILL VERY RESTLESS ,RN AWARE .
--- NOTE | 2022-09-27 21:19 | PC.NURSE ---
bladder scan 453 mL output after straight cath 200 mL incontinent of urine -unable to measure
--- NOTE | 2022-09-27 21:25 | PC.NURSE ---
urine sample and covid swab sent to lab via tube system
[2022-09-27 21:29] LABS: Appearance Urine Clear; Color Urine Yellow; Glucose Urine UA Negative (Negative); Leukocyte Esterase Urine Negative (Negative); Nitrite Urine Negative (Negative); Urine Blood Negative (Negative); Urine Ketones Negative (Negative); Urine Protein Negative (Neg-Trace)
[2022-09-27 21:38] LABS: Amphetamine Screen Urine Not Detected (Not Detect); Barbiturates, Urine Not Detected (Not Detect); Benzodiazepines Screen Urine Not Detected (Not Detect); Cannabinoid Screen Urine Not Detected (Not Detect); Cocaine Screen Urine Not Detected (Not Detect); Fentanyl, urine Not Detected (Not Detect); Opiate Screen Urine Not Detected (Not Detect); Phencyclidine Screen Urine Not Detected (Not Detect)
[2022-09-27 21:39] LABS: Bacteria Urine None Seen (None Seen); Hyaline Casts Urine 0-2 /LPF (0-2); RBC Urine 0-2 /HPF (0-2); Squamous Epithelial Cell Urine 0-2 /HPF (0-2); WBC Urine 0-5 /HPF (0-5)
[2022-09-27 22:39] LABS: COVID-19 Test Negative (Negative); IDNOW Serial# 6674DD1D
[2022-09-28] VITALS (10 sets, daily range): BP systolic 117–152; BP diastolic 52–60; PULSE 78–104; RESP 12–25; TEMP 36.2–40; O2SAT 94–96
--- NOTE | 2022-09-28 00:27 | PC.NURSE ---
pt incontinent of urine, assisted by Katrin RN and MEKA Bach for rolling, repositioning pt cleaned and dried skin intact and dry
--- NOTE | 2022-09-28 00:54 | PC.NURSE ---
frothing of the mouth observed provider aware
[2022-09-28 01:13] LABS: ABG Base Excess 4.4 mmol/L; ABG HCO3 26 mmol/L (22-26); ABG pCO2 32 mmHg (32-45); ABG pH 7.52 (7.35-7.45); ABG pO2 76 mmHg (83-108)
[2022-09-28] MEDS: Acetaminophen Supp 650 MG SUPP.RECT PR (01:29)
--- NOTE | 2022-09-28 01:30 | PC.NURSE ---
per verbal order administered 650 mg supp acetaminophen rectally while provider and LUIZA Wilkes held pt during roll after temp checked 103.3 F rectal
--- NOTE | 2022-09-28 01:35 | PC.NURSE ---
provider aware that pt is febrile 103.3 rectal temp
[2022-09-28 01:36] LABS: ABG Refer to POC result
[2022-09-28] MEDS: iohexoL 350 MG/ML 100 ML INFUS..BTL IV (02:20)
--- NOTE | 2022-09-28 03:24 | PC.NURSE ---
Pt rectal temp found to be 103.9. Ice packs and cool cloths were placed on the pt. Dr. Christina at bedside ordered a temp-sensing Solano. Solano was placed without complications and initial output is around 600mL of clear, yellow urine. Pt temperature decreased to 102.4 after ice.
--- NOTE | 2022-09-28 03:29 | PC.NURSE ---
unable to obtain blood cultures d/t medical emergency occuring provider aware provider approved antibx to be infused
[2022-09-28] MEDS: dexAMETHasone sod phosphate 10 MG/ML VIAL IVPUSH (03:30)
--- NOTE | 2022-09-28 03:40 | PC.NURSE ---
cooling blanket placed d/t tylenol supp being ineffective tylenol drip to be initiated
[2022-09-28] MEDS: cefTRIAXone sodium 2 GM in 0.9 % Sodium Chloride 50 ML IV (04:01)
[2022-09-28 04:08] LABS: CSF Appearance Clear, Colorless; CSF Tube # 3
[2022-09-28] MEDS: Acetaminophen 1,000 MG/100 ML PIGGYBACK 400 MG IV (04:21)
[2022-09-28 04:26] LABS: Glucose CSF 114 mg/dL; Total Protein CSF 46.5 mg/dL (15-45)
[2022-09-28 04:59] LABS: Appearance CSF CLEAR; CSF Monos 40 %; CSF Tube # 4; Color CSF COLORLESS; Lymphocytes CSF 52 %; Neutrophils CSF 8 %; Red Blood Cell CSF 3 MM*3; White Blood Cell CSF 5 MM*3
--- NOTE | 2022-09-28 05:13 | PC.NURSE ---
assisted Dr Christina in EJ placement
--- NOTE | 2022-09-28 06:47 | PM.IMHP ---
History of Present Illness Date of Service: 09/28/22 Chief Complaint: altered mental status 72-year-old female with past medical history of complex migraines, diabetes, HTN, hypothyroidism, HLD who presents to the hospital with her family for altered mental status. Patient is completely altered, unable to obtain history from her, history therefore is obtained mostly from ED provider. it appears the patient was shopping with her daughter when all of a sudden she lost the ability to speak. Per ED provider, patient presents the hospital very altered, agitated, restless. according to the family this is an identical presentation will patient has migraine headaches. According to the ED provider patient was able to move all her extremities well, with no focal deficits, but very restless and screaming help me help me. it was reported the patient was seen at [facility] earlier this year for similar findings, we were able to get some records from February 2022, patient was at that time admitted for metabolic encephalopathy which was felt to be related to MAGGY, patient was seen by Neurology on 02/06, patient had extensive workup including EEG, which was negative. As well as numerous CT scans and MRIs with negative workup. Due to her restlessness and agitation patient did receive 5 of Haldol, 50 of Benadryl, as well as 2 of Ativan, therefore on my interview patient is completely obtunded, she did feel warm to the touch, therefore I requested a temperature, rectal temp was found to be 103.9 on initial arrival her vitals were noted to be temp of 98.4 degrees, heart rate of 111, respiratory of 22, 94 on room air She then developed a fever of 103, heart rate of 104, blood pressure stable lumbar puncture was also done which was unremarkable UA negative, chest x-ray negative, abdominal pelvic CT is negative, head CT negative for any acute changes patient has been placed on cooling blanket and will be admitted for further management Review of Systems Review of Systems: Yes Unobtainable due to mental condition and Unobtainable due to mental status PMFSH Medical History Complicated migraine Diabetes HLD (hyperlipidemia) HTN (hypertension) Hypothyroid Family History Other Lung cancer Surgical History H/O section Hx of cholecystectomy Social History Household Members: Spouse Housing: Unknown / Unable to assess Unable to assess alcohol history related to: Unknown Alcohol intake: former Smoked in Last 30 Days: No Use of substances other than those prescribed or required for medical reasons: No Advance Directives: No Advance Directives Information Provided: No service: No Current occupational status: retired Meds Allergies Allergy/AdvReac Type Severity Reaction Status Date / Time Iodinated Contrast Media Allergy Severe SEDATION,TA Verified 07/24/20 19:30 [IVP DYE] CHYCARDIA erythromycin base Allergy Unknown HIVES Verified 07/24/20 19:30 [ERYTHROMYCIN BASE] Active Medications: Current Medications Vancomycin HCl (Vancomycin/Ns) 2,000 mg in 500 mls @ 250 mls/hr IV ONCE ONE Stop: 09/28/22 08:07 Acyclovir Sodium 500 mg/ (Dextrose) 110 mls @ 110 mls/hr IV ONCE ONE Stop: 09/28/22 07:07 Vancomycin HCl 1,000 mg/ (Sodium Chloride) 270 mls @ 270 mls/hr IV Q12H [place] Ampicillin Sodium/Sulbactam (Sodium 3 gm/ Sodium Chloride) 100 mls @ 200 mls/hr IV Q8H [place] Ceftriaxone Sodium 1 gm/ (Sodium Chloride) 50 mls @ 100 mls/hr IV Q24H [place] Ketorolac Tromethamine (Ketorolac Tromethamine 30 Mg/Ml Vial) 30 mg IVPUSH ONCE ONE Stop: 09/28/22 06:32 Pharmacy Consult (Consult Rx Perform Med Rec) 1 each MISCELLANE ONCE PRN PRN Reason: Consult order Pharmacy Consult (Consult Rx Vancomycin Dosing) 1 each MISCELLANE DAILY PRN PRN Reason: Consult order Valacyclovir HCl (Valacyclovir Hcl 1,000 Mg Tablet) 1,000 mg PO Q8H [facility] Home Medications Medication Instructions Recorded Confirmed Last Taken Type blood sugar diagnostic (FreeStyle 09/28/22 09/28/22 Unknown History Lite Strips) clonidine HCl 0.1 mg tablet 0.1 mg PO TID 09/28/22 09/28/22 Unknown History gabapentin 300 mg capsule 300 mg PO DIRECTED 09/28/22 09/28/22 Unknown History (Neurontin) insulin glargine 100 unit/mL (3 300 unit subcut DIRECTED 09/28/22 09/28/22 Unknown History mL) subcutaneous pen (Lantus Solostar U-100 Insulin) insulin lispro 100 unit/mL See Rx Instructions .Route .COMPLEX 09/28/22 09/28/22 Unknown History subcutaneous pen levothyroxine 125 mcg tablet See Rx Instructions .Route .COMPLEX 09/28/22 09/28/22 Unknown History lisinopril 5 mg tablet 5 mg PO DAILY 09/28/22 09/28/22 Unknown History mirtazapine 15 mg tablet 15 mg PO BEDTIME 09/28/22 09/28/22 Unknown History pen needle, diabetic 32 gauge x 09/28/22 09/28/22 Unknown History 1/4 (BD Ultra-Fine Micro Pen Needle) quetiapine 50 mg tablet 50 mg PO BEDTIME 09/28/22 09/28/22 Unknown History simvastatin 20 mg tablet 20 mg PO BEDTIME 09/28/22 09/28/22 Unknown History ubrogepant 100 mg tablet (Ubrelvy) 100 mg PO DIRECTED 09/28/22 09/28/22 Unknown History Physical Exam Vital Signs and Narrative: Vital Signs: Last Vital Signs Temp 102.9 F H 09/28/22 05:30 Pulse 96 09/28/22 05:30 Resp 25 H 09/28/22 05:30 BP 152/60 H 09/28/22 04:13 Pulse Ox 95 09/28/22 04:13 O2 Del Method Room Air 09/28/22 04:13 BMI result Body Mass Index 42.3 HEENT: Other: patient does have neck rigidity, Eyes: General: appearance normal, both eyes and all related structures Resp: Effort & Inspection: normal respiratory effort Cardio: Rate: regular rate Rhythm: regular rhythm GI: Palpation (GI): Soft to palpation Auscultation: normal bowel sounds Skin: General skin exam: no rashes or lesions noted Extrem: Other: thrashing her lower extremities, moving them, no muscle rigidity noted General: Yes normal to inspection and Yes no pedal edema Results Labs 09/27/22 18:18 09/27/22 18:18 Labs: Laboratory Results - last 24 hr 09/27/22 09/27/22 09/27/22 16:49 18:18 18:18 MCV 88.0 MCH 29.6 MCHC 33.7 RDW 12.3 Plt Count 267 D MPV 11.2 Immature Gran % (Auto) 0.4 Neut % (Auto) 69.5 Lymph % (Auto) 20.7 [place] % (Auto) 8.0 Eos % (Auto) 1.2 Baso % (Auto) 0.2 Lymph # (Auto) 2.4 [place] # (Auto) 0.9 Eos # (Auto) 0.1 Baso # (Auto) 0.0 Abs Immat Gran (auto) 0.05 H Absolute Neuts (auto) 8.0 Absolute Nucleated RBC 0.000 Nucleated RBC % (auto) 0.0 PT 10.9 INR 1.0 APTT 29.6 O2 Saturation ABG pH at Pt Temp ABG pCO2 at Pt Temp ABG pO2 at Pt Temp ABG HCO3 ABG Base Excess (Actual) Anion Gap Estim Creat Clear Calc Estimated GFR POC Glucose 121 H Random Glucose Lactic Acid Calcium Total Bilirubin AST ALT Alkaline Phosphatase Total Protein Albumin Lipase Urine Color Urine Appearance Urine pH Ur Specific [place] Urine Protein Urine Glucose (UA) Urine Ketones Urine Blood Urine Nitrite Ur Leukocyte Esterase Urine RBC Urine WBC Ur Squamous Epith Cells Urine Bacteria Hyaline Casts CSF Tube Number CSF Volume CSF Appearance CSF Color CSF WBC CSF RBC CSF Neutrophils CSF Lymphocytes CSF Monocytes % CSF Appearance (b) CSF Glucose CSF Total Protein CSF VDRL Urine Opiates Screen Urine Fentanyl Screen Ur Barbiturates Screen Ur Phencyclidine Scrn Ur Amphetamines Screen U Benzodiazepines Scrn Urine Cocaine Screen U Marijuana (THC) Screen Ethyl Alcohol COVID-19 (MARI) COVID-19 Clin Com 09/27/22 09/27/22 09/27/22 18:18 21:21 21:21 MCV MCH MCHC RDW Plt Count MPV Immature Gran % (Auto) Neut % (Auto) Lymph % (Auto) [place] % (Auto) Eos % (Auto) Baso % (Auto) Lymph # (Auto) [place] # (Auto) Eos # (Auto) Baso # (Auto) Abs Immat Gran (auto) Absolute Neuts (auto) Absolute Nucleated RBC Nucleated RBC % (auto) PT INR APTT O2 Saturation ABG pH at Pt Temp ABG pCO2 at Pt Temp ABG pO2 at Pt Temp ABG HCO3 ABG Base Excess (Actual) Anion Gap 15 Estim Creat Clear Calc 61.4 Estimated GFR 50 POC Glucose Random Glucose 126 H Lactic Acid Calcium 9.3 Total Bilirubin 1.3 H AST 33 H ALT 38 H Alkaline Phosphatase 119 H Total Protein 7.0 Albumin 3.9 Lipase 13 Urine Color Yellow Urine Appearance Clear Urine pH 5.0 Ur Specific [place] 1.020 Urine Protein Negative Urine Glucose (UA) Negative Urine Ketones Negative Urine Blood Negative Urine Nitrite Negative Ur Leukocyte Esterase Negative Urine RBC 0-2 Urine WBC 0-5 Ur Squamous Epith Cells 0-2 Urine Bacteria None Seen Hyaline Casts 0-2 CSF Tube Number CSF Volume CSF Appearance CSF Color CSF WBC CSF RBC CSF Neutrophils CSF Lymphocytes CSF Monocytes % CSF Appearance (b) CSF Glucose CSF Total Protein CSF VDRL Urine Opiates Screen Urine Fentanyl Screen Ur Barbiturates Screen Ur Phencyclidine Scrn Ur Amphetamines Screen U Benzodiazepines Scrn Urine Cocaine Screen U Marijuana (THC) Screen Ethyl Alcohol < 10 COVID-19 (MARI) Negative COVID-19 Clin Com See Note 09/27/22 09/28/22 09/28/22 21:21 01:03 03:47 MCV MCH MCHC RDW Plt Count MPV Immature Gran % (Auto) Neut % (Auto) Lymph % (Auto) [place] % (Auto) Eos % (Auto) Baso % (Auto) Lymph # (Auto) [place] # (Auto) Eos # (Auto) Baso # (Auto) Abs Immat Gran (auto) Absolute Neuts (auto) Absolute Nucleated RBC Nucleated RBC % (auto) PT INR APTT O2 Saturation 96.0 ABG pH at Pt Temp 7.52 H ABG pCO2 at Pt Temp 32 ABG pO2 at Pt Temp 76 L ABG HCO3 26 ABG Base Excess (Actual) 4.4 Anion Gap Estim Creat Clear Calc Estimated GFR POC Glucose Random Glucose Lactic Acid Calcium Total Bilirubin AST ALT Alkaline Phosphatase Total Protein Albumin Lipase Urine Color Urine Appearance Urine pH Ur Specific [place] Urine Protein Urine Glucose (UA) Urine Ketones Urine Blood Urine Nitrite Ur Leukocyte Esterase Urine RBC Urine WBC Ur Squamous Epith Cells Urine Bacteria Hyaline Casts CSF Tube Number 3 CSF Volume CSF Appearance CSF Color CSF WBC CSF RBC CSF Neutrophils CSF Lymphocytes CSF Monocytes % CSF Appearance (b) Clear, Colorless CSF Glucose 114 CSF Total Protein 46.5 H CSF VDRL Urine Opiates Screen Not Detected Urine Fentanyl Screen Not Detected Ur Barbiturates Screen Not Detected Ur Phencyclidine Scrn Not Detected Ur Amphetamines Screen Not Detected U Benzodiazepines Scrn Not Detected Urine Cocaine Screen Not Detected U Marijuana (THC) Screen Not Detected Ethyl Alcohol COVID-19 (MARI) COVID-19 Clin Com 09/28/22 09/28/22 09/28/22 03:47 03:47 04:49 MCV MCH MCHC RDW Plt Count MPV Immature Gran % (Auto) Neut % (Auto) Lymph % (Auto) [place] % (Auto) Eos % (Auto) Baso % (Auto) Lymph # (Auto) [place] # (Auto) Eos # (Auto) Baso # (Auto) Abs Immat Gran (auto) Absolute Neuts (auto) Absolute Nucleated RBC Nucleated RBC % (auto) PT INR APTT O2 Saturation ABG pH at Pt Temp ABG pCO2 at Pt Temp ABG pO2 at Pt Temp ABG HCO3 ABG Base Excess (Actual) Anion Gap Estim Creat Clear Calc Estimated GFR POC Glucose Random Glucose Lactic Acid 2.0 Calcium Total Bilirubin AST ALT Alkaline Phosphatase Total Protein Albumin Lipase Urine Color Urine Appearance Urine pH Ur Specific [place] Urine Protein Urine Glucose (UA) Urine Ketones Urine Blood Urine Nitrite Ur Leukocyte Esterase Urine RBC Urine WBC Ur Squamous Epith Cells Urine Bacteria Hyaline Casts CSF Tube Number 4 CSF Volume 1.0 CSF Appearance CLEAR CSF Color COLORLESS CSF WBC 5 CSF RBC 3 CSF Neutrophils 8 CSF Lymphocytes 52 CSF Monocytes % 40 CSF Appearance (b) CSF Glucose CSF Total Protein CSF VDRL Cancelled Urine Opiates Screen Urine Fentanyl Screen Ur Barbiturates Screen Ur Phencyclidine Scrn Ur Amphetamines Screen U Benzodiazepines Scrn Urine Cocaine Screen U Marijuana (THC) Screen Ethyl Alcohol COVID-19 (MARI) COVID-19 Clin Com Imaging Radiologist's Impressions: Impressions Head CT 09/27/22 22:22 IMPRESSION: No acute intracranial pathology. Mild chronic small vessel ischemic disease and volume loss. Chest X-Ray 09/27/22 22:25 IMPRESSION: No acute cardiopulmonary findings. Abdomen/Pelvis CT 09/28/22 02:10 IMPRESSION: * No acute findings within the abdomen or pelvis to explain the patient's symptomatology. * There are a few scattered colonic diverticula without evidence of diverticulitis. * Cholecystectomy. Assessment and Plan (1) Acute metabolic encephalopathy: Status: Acute (2) Hyperthermia: Status: Acute (3) Fever of unknown origin: Status: Acute Plan 72-year-old female with past medical history of complex migraine headaches, presents to the hospital with altered mental status into the hyperthermic # acute metabolic encephalopathy - unclear etiology at this time, complex migraine, versus CVA versus possibly viral versus bacterial meningitis, - chest x-ray negative, UA negative, CT abdomen negative, head CT negative - LP shows no acute abnormality( slightly elevated protein) - CSF cultures pending - given the elevated temperature, with neck rigidity, concerning for acute meningitis, will treat with ceftriaxone, ampicillin, as well as vancomycin - will obtain TSH - MRI ordered - OG consulted # hyperthermia - possibly secondary to acute infection, serotonin syndrome and malignant hyperthermia less likely, - patient has no rigidity of muscle, has no clonus, no diaphoresis, no tremor or hyper reflexia, - will obtain CPK - continue cooling blanket - follow cultures - infectious disease consulted # hypothyroidism - continue levothyroxine once patient able to take p.o. - TSH level pending # diabetes - resume home insulin - will place on low-dose sliding scale insulin at this time will hold her Seroquel, mirtazapine, and gabapentin DVT prophylaxis: Eliquis given patient's need for further management of hyperthermia, and acute metabolic encephalopathy patient will require a minimum 2 nights inpatient hospital stay for further management and monitoring Time Spent With Patient Time: Total time managing care of this patient today ____ minutes. Quality Stroke Does the patient have a stroke diagnosis?: No VTE Prior VTE?: No VTE Risk Level:: Medical - moderate - high VTE Device Contraindication: Treatment Not Indicated VTE Drug Contraindication: N/A - Med Ordered
[2022-09-28] MEDS: Acyclovir Sodium 500 MG in Dextrose 5 % 100 ML 110 MG IV (06:59)
[2022-09-28] MEDS: vancomycin/NS 2,000 MG/500 ML PLAST..BAG 250 MG IV (07:06)
--- NOTE | 2022-09-28 07:22 | MHC.EDTECH ---
i pct noticed on my hand held that there was an order for csf i called the lab to confirm it was done and the lab infact said it was done and that they needed to do an inlab test and therefore is the reason i still see it on my tracker
--- NOTE | 2022-09-28 08:00 | PC.NURSE ---
assumed care of this pt at 0700. pt in bed, with eyes closed, snoring. opens eyes when name is called.
[2022-09-28] MEDS: Ketorolac Tromethamine 30 MG/ML VIAL IVPUSH (08:01)
[2022-09-28] MEDS: 0.9 % Sodium Chloride Flush 3 ML SYRINGE IVFLUSH (08:03)
--- NOTE | 2022-09-28 08:15 | PC.NURSE ---
lis care and complete bed change done by this RN and [employer]. khoury catheter emptied (output 1050 ml).
--- NOTE | 2022-09-28 08:29 | PHA.MEDREC ---
Pharmacy Consult ? Medication Reconciliation Pharmacy has completed the medication reconciliation. spoke with patients and daughter over the phone. They claimed they dropped off an updated list however I was unable to track it down so they were able to verify it over the phone. They did give the hospital 2 tablets of the patients Ubrelvy.
[2022-09-28 08:34] LABS: MANUAL DIFF FLAG NO
[2022-09-28 08:40] LABS: Basophils Percent Auto 0.3 % (0-2); Hematocrit 38.5 % (37.0-47.0); Hemoglobin 12.4 g/dl (12.0-16.0); Imm Gran Abs Auto 0.07 X10*3/uL (0.00-0.03); Imm Gran Pct Auto 0.6 % (0.0-0.4); Lymphocytes Absolute Auto 1.4 X10*3/uL (1.2-4.9); Lymphocytes Percent Auto 12.3 % (20-40); Mean Corpuscular HGB Conc 32.2 g/dl (31.0-35.0); Mean Corpuscular Hemoglobin 29.7 pg (27.0-33.0); Mean Corpuscular Volume 92.1 fL (80.0-98.0); Mean Platelet Volume 11.9 fL (9.4-12.3); Monocytes Absolute Auto 0.2 X10*3/uL (0.1-1.2); Monocytes Percent Auto 1.3 % (2-11); Neutrophils Percent Auto 85.5 % (45-73); Platelet Count 252 X10*3/uL (160-400); Red Blood Count 4.18 X10*6/uL (4.20-5.50); Red Cell Distribution Width 12.8 % (11.0-16.0); White Blood Count 11.6 X10*3/uL (4.8-10.8)
[2022-09-28] MEDS: LORazepam 2 MG/ML VIAL IVPUSH (09:00)
--- NOTE | 2022-09-28 09:00 | PC.NURSE ---
pt restless, several attempts to exit bed. took off compliance monitor wires. removed n/c tubing, several attempts to remove REJ iv. iv pain med and Ativan given as ordered. Per Dr. Hogue, do not give the previously ordered antibiotics. only give Doxycycline. Antibiotics held as ordered. will continue to observe.
[2022-09-28 09:03] LABS: Anion Gap 22 (12-20); Blood Urea Nitrogen 25 mg/dL (9-16); Calcium 8.7 mg/dL (8.4-10.2); Carbon Dioxide 17 mmol/L (22-29); Chloride 105 mmol/L (96-108); Creatinine Clr Calc Pharmacy 54.8; Estimated Glomerular Filt Rate 44; Glucose Random 347 mg/dL (60-115); Potassium 4.7 mmol/L (3.3-5.1); Sodium 139 mmol/L (135-145)
--- NOTE | 2022-09-28 09:17 | PHA.PROG ---
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 Weight in k.2 kg Serum Creatinine - Last 168 Hours 09/27/22 09/28/22 18:18 08:14 Creatinine 1.08 1.21 Estimated CrCl and GFR - Last 168 Hours 09/27/22 09/28/22 18:18 08:14 Estim Creat Clear Calc 61.4 54.8 Estimated GFR 50 44 Vancomycin Loading Dose: 2000 Current Vancomycin Dosing Regimen: 1250 q 24 Vancomycin Monitoring using AUC goal of 400 - 600 range with trough as surrogate marker: 531 Date and Time for next Vancomycin Level to be drawn: 09/30 0600 Pharmacist Comments on Vancomycin Plan: Vancomycin dosing will take advantage of agreement24 avtal24 as a clinical decision support tool that uses Bayesian modeling to calculate individual patient's pharmacokinetic parameters and forecast the patient's drug concentration time course with the target goal AUC 24 range of 400 - 600 mg/L/hr.
--- NOTE | 2022-09-28 09:45 | PC.NURSE ---
cooling blanket removed per both Dr Hogue and Dr. Tobias at bedside.
--- NOTE | 2022-09-28 10:00 | PC.NURSE ---
all po meds held, pt npo. aware
[2022-09-28] MEDS: Doxycycline Hyclate 100 MG in 0.9 % Sodium Chloride 250 ML 166.67 MG IV (10:09)
--- NOTE | 2022-09-28 11:57 | MHC.CM.PN ---
Addendum entered by Courtney Storey 09/28/22 13:48: Patient was recently at [facility] for STR. Addendum entered by Courtney Storey 09/28/22 12:20: Patient is active with [facility]. Original Note: Attempted to meet with patient in regards to discharge planning. Patient is currently confused. Spoke with patient's /HCP, Joey, via telephone at [phone]. Patient lives with Joey, ambulates with a cane at times and is active with a VNA for half-way and a home health aide. Joey is unsure of which agency patent is active with. PCP verified. HCP verified to be on file. Patient received 2 Pfizer vaccines but not boosted. IMM explained and left at patient's bedside. Joey is unsure is patient will be able to safely return home or will need STR. Physical therapy eval for home safety will be needed when medically stable. Continue to monitor for d/c needs.
[2022-09-28] MEDS: Haloperidol Lactate 5 MG/ML VIAL IM (12:51)
--- NOTE | 2022-09-28 13:41 | PM.NEUROCN ---
History of Present Illness Data of Consult Service Date: 09/28/22 Primary Care Provider: Bhakti Rodgers MD [facility] Reason for consult: confusion, agitation, delirium ?This is a 72-year-old female with h/o complex migraines with confusion, aphasia nd hemiparesis, diabetes, HTN, hypothyroidism, HLD who presents to the hospital with her family for altered mental status. ? Patient is restless, consrantly moving and writhing. Does not verbalize or follow commands and is delirius. it appears the patient was shopping with her daughter when all of a sudden she lost the ability to speak.? Per ED provider, patient presents the hospital very altered,? agitated, restless.? according to the family this is an identical presentation will patient has migraine headaches.?She had no focal deficits, but very restless and screaming help me help me . ? It was reported the patient was seen at [facility] earlier this year for similar findings, we were able to get some records from February 2022, patient was at that time admitted for metabolic encephalopathy which was felt to be related to MAGGY, patient was seen by Neurology on 02/06, patient had extensive workup including EEG, which was negative.? As well as numerous CT scans and MRIs with negative workup.? She received 5 mg Haldol IM x 2, , 50mgf Benadryl, as well as 2mg Ativan x2. At one point her rectal temp was found to be 103.9. Initial temp of 98.4 degrees, heart rate of 111, respiratory of 22, 94 on room air. Lumbar puncture was unremarkable, ?UA negative, chest x-ray negative, abdominal pelvic CT is negative, head CT negative for any acute changes Review of Systems Review of Systems: Review of systems is limited given the patient's presentation Yes Unobtainable due to mental condition and Unobtainable due to mental status Constitutional: Constitutional: Denies fever(s) and Reports headache(s) ENT: Reports headache(s) Respiratory: Respiratory: Denies cough Gastrointestinal: Gastrointestinal: Denies abdominal pain, Denies nausea and Denies vomiting Neurologic: Denies Abnormal speech present, Reports confusion and Reports headache(s) Psychiatric: Psychiatric: Reports confusion and Reports irritability PMFSH Past Medical History Medical History Complicated migraine Diabetes HLD (hyperlipidemia) HTN (hypertension) Hypothyroid Family History Family History Other Lung cancer Surgical History Surgical History H/O section Hx of cholecystectomy Social History Social History Household Members: Spouse Housing: Unknown / Unable to assess Unable to assess alcohol history related to: Unknown Alcohol intake: former Smoked in Last 30 Days: No Use of substances other than those prescribed or required for medical reasons: No Advance Directives: Yes Advance Directives on File: Yes Advance Directives Date on File: 09/28/22 service: No Current occupational status: retired Meds Allergies Allergy/AdvReac Type Severity Reaction Status Date / Time Iodinated Contrast Media Allergy Severe SEDATION,TA Verified 07/24/20 19:30 [IVP DYE] CHYCARDIA erythromycin base Allergy Unknown HIVES Verified 07/24/20 19:30 [ERYTHROMYCIN BASE] Active Medications: Current Medications Acetaminophen (Acetaminophen Supp 650 Mg Supp.Rect) 650 mg [place] Q6H PRN PRN Reason: Pain, Mild (Pain Scale 1-3) Clonidine HCl (Clonidine Hcl 0.1 Mg Tablet) 0.1 mg PO BEDTIME [facility]; Protocol Docusate Sodium (Docusate Sodium 100 Mg Capsule) 100 mg PO DAILY PRN PRN Reason: Constipation Lactated Ringer's (Lr) 1,000 mls @ 100 mls/hr IVCONT .Q10H [facility] Last Admin: 09/28/22 10:39 Dose: Not Given Levothyroxine Sodium (Levothyroxine Sodium 125 Mcg Tablet) 125 mcg PO [id number]@0600 [facility] Last Admin: 09/28/22 10:38 Dose: Not Given Levothyroxine Sodium (Levothyroxine Sodium 125 Mcg Tablet) 62.5 mcg PO Bess [place] Ondansetron HCl (Ondansetron Hcl 4 Mg/2 Ml Vial) 4 mg IVPUSH Q8H PRN PRN Reason: Nausea and Vomiting Pharmacy Consult (Consult Rx Perform Med Rec) 1 each MISCELLANE ONCE PRN PRN Reason: Consult order Sodium Chloride (0.9 % Sodium Chloride Flush 3 Ml Syringe) 3 ml IVFLUSH QSHIFT [facility] Last Admin: 09/28/22 08:03 Dose: 3 ml Home Medications Medication Instructions Recorded Confirmed Last Taken Type aspirin 81 mg tablet,delayed 81 mg PO DAILY 09/28/22 09/28/22 Unknown History release blood sugar diagnostic (FreeStyle 09/28/22 09/28/22 Unknown History Lite Strips) cholecalciferol (vitamin D3) 25 25 mcg PO DAILY 09/28/22 09/28/22 Unknown History mcg (1,000 unit) capsule (Vitamin D3) clonidine HCl 0.1 mg tablet 0.1 mg PO BEDTIME 09/28/22 09/28/22 Unknown History gabapentin 300 mg capsule 300 mg PO BID 09/28/22 09/28/22 Unknown History gabapentin 300 mg capsule 600 mg PO BEDTIME 09/28/22 09/28/22 Unknown History (Neurontin) insulin glargine 100 unit/mL (3 50 unit subcut BID 09/28/22 09/28/22 Unknown History mL) subcutaneous pen (Lantus Solostar U-100 Insulin) insulin lispro 100 unit/mL See Rx Instructions .Route .COMPLEX 09/28/22 09/28/22 Unknown History subcutaneous pen levothyroxine 125 mcg tablet 62.5 mcg PO BESS 09/28/22 09/28/22 Unknown History levothyroxine 125 mcg tablet 125 mcg PO MOTUWETHFRSA 09/28/22 09/28/22 Unknown History melatonin 10 mg chewable tablet 10 mg PO BEDTIME 09/28/22 09/28/22 Unknown History pen needle, diabetic 32 gauge x 09/28/22 09/28/22 Unknown History 1/4 (BD Ultra-Fine Micro Pen Needle) simvastatin 20 mg tablet 20 mg PO BEDTIME 09/28/22 09/28/22 Unknown History ubrogepant 100 mg tablet (Ubrelvy) 100 mg PO DIRECTED 09/28/22 09/28/22 Unknown History Physical Exam Vital Signs: Vital Signs: Last Vital Signs Temp 100.1 F 09/28/22 07:46 Pulse 96 09/28/22 05:30 Resp 25 H 09/28/22 05:30 BP 130/60 09/28/22 09:59 Pulse Ox 95 09/28/22 04:13 O2 Del Method Room Air 09/28/22 04:13 BMI result Body Mass Index 42.3 Const: General: well developed and confusion; No cooperative or comfortable Orientation/consciousness: oriented to person, No oriented to place, No oriented to time and confusion Limitations: altered mental status and behavioral limitations HEENT: Other: patient does have neck rigidity, Head: Yes normocephalic and Yes atraumatic Eyes: General: appearance normal, both eyes and all related structures Alignment and Position: alignment normal Periorbital: periorbital findings normal Conjunctivae: conjunctivae normal Pupils: Equal, round and reactive pupils present and Pupils normal by confrontation EOM: EOMs intact bilaterally Neck: Neck: No no meningeal signs Resp: Effort & Inspection: normal respiratory effort and able to speak in complete sentences Cardio: Rate: regular rate Rhythm: regular rhythm GI: Inspection: No distended Palpation (GI): Soft to palpation, nontender and no guarding Auscultation: normal bowel sounds Skin: General skin exam: no rashes or lesions noted Neuro: Other: agitated and restless. Occasionally moans. constantly writhing from side to side. Holding riht hand clenched and against her body . Moves all extremities. Plantars are flexor. General: oriented to person, No oriented to place, No oriented to time, No no meningeal signs, No no focal motor deficits, confusion and Unable to assess gait Cranial nerves: Yes Equal, round and reactive pupils present Speech: No Abnormal speech present Gait exam (Neuro): Unable to assess gait Motor exam (neuro): 5/5 motor strength present throughout Extrem: Other: thrashing her lower extremities, moving them, no muscle rigidity noted General: Yes normal to inspection and Yes no pedal edema Results Labs 09/28/22 08:11 09/28/22 08:14 Labs: Short CBC 09/27/22 09/28/22 Range/Units 18:18 08:11 WBC 11.5 H 11.6 H (4.8-10.8) X10*3/uL Hgb 12.8 12.4 (12.0-16.0) g/dl Hct 38.0 38.5 (37.0-47.0) % Plt Count 267 D 252 (160-400) X10*3/uL BMP 09/27/22 09/28/22 18:18 08:14 Sodium 141 139 Potassium 4.0 4.7 Chloride 105 105 Carbon Dioxide 25 17 L BUN 26 H 25 H Creatinine 1.08 1.21 Calcium 9.3 8.7 D Cardiac Enzymes 09/28/22 Range/Units 08:14 Total Creatine Kinase 2485 H (26-140) U/L Liver Function 09/27/22 Range/Units 18:18 Total Bilirubin 1.3 H (0.0-1.0) mg/dL AST 33 H (5-31) U/L ALT 38 H (0-31) U/L Alkaline Phosphatase 119 H (39-117) U/L Albumin 3.9 (3.5-5.0) g/dL Urine 09/27/22 Range/Units 21:21 Urine Color Yellow Urine Appearance Clear Urine pH 5.0 (5.0-9.0) Ur Specific [place] 1.020 (1.005-1.025) Urine Protein Negative (Neg-Trace) mg/dL Urine Glucose (UA) Negative (Negative) mg/dL Microbiology Microbiology Results: Microbiology 09/28/22 03:47 Cerebrospinal Fluid Gram Stain - Final 09/28/22 03:47 Cerebrospinal Fluid CSF Examination - Final 09/28/22 03:47 Cerebrospinal Fluid Fluid Description - Final Assessment and Plan (1) Acute metabolic encephalopathy: Status: Acute Probable complex migraine with frontal lobe dysfunction. Infectious etiology ruled out. No signs of a stroke. Recom. Sedation with Haoldol 5mg IM q2h till sedated. EEG tomorrow . If she is sedated and calm, she should also get an MRI for diagnostic purposes. (2) Hyperthermia: Status: Acute (3) Fever of unknown origin: Status: Acute Plan 72-year-old female with past medical history of complex migraine headaches, presents to the hospital with altered mental status into the hyperthermic # acute metabolic encephalopathy - unclear etiology at this time, complex migraine, versus CVA versus possibly viral versus bacterial meningitis, - chest x-ray negative, UA negative, CT abdomen negative, head CT negative - LP shows no acute abnormality( slightly elevated protein) - CSF cultures pending - given the elevated temperature, with neck rigidity, concerning for acute meningitis, will treat with ceftriaxone, ampicillin, as well as vancomycin - will obtain TSH - MRI ordered - OG consulted # hyperthermia - possibly secondary to acute infection, serotonin syndrome and malignant hyperthermia less likely, - patient has no rigidity of muscle, has no clonus, no diaphoresis, no tremor or hyper reflexia, - will obtain CPK - continue cooling blanket - follow cultures - infectious disease consulted # hypothyroidism - continue levothyroxine once patient able to take p.o. - TSH level pending # diabetes - resume home insulin - will place on low-dose sliding scale insulin at this time will hold her Seroquel, mirtazapine, and gabapentin DVT prophylaxis: Eliquis given patient's need for further management of hyperthermia, and acute metabolic encephalopathy patient will require a minimum 2 nights inpatient hospital stay for further management and monitoring Time Spent With Patient Time: Total time managing care of this patient today ____ minutes. Procedures Date of Service Date of Service: 09/28/22
--- NOTE | 2022-09-28 14:28 | P.EN_ITS ---
Event Note Date of Service: 09/28/22 Event Note: 72-year-old female patient with past medical history significant for complex migraines associated with confusion aphasia and hemiparesis call mom a history of hypertension, hyperlipidemia was brought in to [facility] by her daughter since suddenly she was unable to speak at time of presentation patient was noted to be confused, agitated,and restless , she was moving all 4 extremities and was screaming for help, due to restlessness patient receive Haldol IM, Benadryl and IV Ativan ,on initial arrival her vitals were noted to be temp of 98.4 degrees, heart rate of 111, respiratory of 22, 94 on room air,She then developed a fever of 103, heart rate of 104, blood pressure stable. Workup for fever was negative,?UA negative, chest x-ray negative, abdominal pelvic CT is negative, head CT negative for any acute changes lumbar puncture was also done which was unremarkable Patient admitted to [facility] in February of 2022 was diagnosed to have metabolic encephalopathy related to MAGGY Patient admitted at [facility] few weeks ago for similar symptoms diagnosed to have complex migraine on Ubrelvy Ambulatory 24 hour EEG 02/19/2022 neg A/P 72-year-old female with past medical history of ? complex migraine headaches, presents to the hospital with altered mental status and noted to have temp of 104 degrees with negative workup #? acute metabolic encephalopathy with high-grade fever -? unclear etiology at this time, no evidence of acute infection with extensive negative workup, CT head showed no acute stroke, normal neuro examination, likely complex migraine with prior similar episodes with fevers Continue supportive care, close clinical follow-up Will cancel MRI study at this time, since no evidence of acute stroke DC all IV antibiotics, follow blood cultures and CSF culture Seen by ID she agrees with no antibiotics Seen by neurologist Dr. Luevano he recommend Haldol 5 mg IM Q 2 hours till sedated, EEG tomorrow, MRI for diagnostic purpose. #? hypothyroidism -? TSH 0.60, on levothyroxine , will place on IV levothyroxine since unable to take by mouth #? diabetes mellitus on insulin Lantus 50 units b.i.d. and high-dose Humalog sliding scale since patient NPO will decrease dose of Lantus to 50% and continue sliding scale ,follow blood sugars closely # chronic transaminitis stable LFTs Home medication aspirin, vitamin D3, melatonin, simvastatin, clonidine, Neurontin are on hold. ? DVT prophylaxis: Lovenox SQ ?given patient's need for further management of hyperthermia, and acute metabolic encephalopathy patient will require continued inpatient hospital stay for further management and monitoring Time Spent With Patient Time: Total time managing care of this patient today ____ minutes.
--- NOTE | 2022-09-28 15:03 | HE.PHANOTE ---
RE: levothyroxine Dr. Hogue messaged and asked to switch to IV levothyroxine; reduced doses by 50%
[2022-09-28 16:05] LABS: Glucose, Whole Blood 367 mg/dL (60-115)
--- NOTE | 2022-09-28 16:11 | W.PM.IDCN ---
History of Present Illness Data of Consult Service Date: 09/28/22 Requesting physician: Josse Hsu Primary Care Provider: Bhakti Rodgers MD HPI Reason for consult: fever,encephalopathy She presents with confusion and temperature to 103.9. She has had similar presentations in 2018 and 07/2020 when I saw her,possible hemiplegic migraine. She has pending CSF profile after LP. Review of Systems Review of Systems: Yes Unobtainable due to mental condition PMFSH Past Medical History Medical History Complicated migraine Diabetes HLD (hyperlipidemia) HTN (hypertension) Hypothyroid Family History Family History Other Lung cancer Family history: reviewed and not pertinent Surgical History Surgical History H/O section Hx of cholecystectomy Social History Social History Household Members: Spouse Housing: House Do you presently have visiting nurse or other home services: No (just finished last week) Unable to assess alcohol history related to: Unknown Alcohol intake: former Patient Tobacco Use Status: Never used Tobacco Smoked in Last 30 Days: No e-Cigarette/Vaping Use: Never Used Patient Interested in Nicotine Replacement: No Patient Given Instructions on How to Stop Smoking: No Second Hand Smoke Exposure: No Use of substances other than those prescribed or required for medical reasons: No Currently Displaying Signs/Symptoms of Drug Intoxication Withdrawal: No Any prior treatment program specific to substance use: No Advance Directives: Yes Advance Directives on File: Yes Advance Directives Date on File: 09/28/22 Recently lost weight without trying: No Eating poorly because of decreased appetite: No Nutrition Risks: No Nutritional Risk Patient : No : No Poor oral hygiene: No service: No Current occupational status: retired Meds Allergies Allergy/AdvReac Type Severity Reaction Status Date / Time Iodinated Contrast Media Allergy Severe SEDATION,TA Verified 07/24/20 19:30 [IVP DYE] CHYCARDIA erythromycin base Allergy Unknown HIVES Verified 07/24/20 19:30 [ERYTHROMYCIN BASE] Active Medications: Current Medications Acetaminophen (Acetaminophen Supp 650 Mg Supp.Rect) 650 mg [place] Q6H PRN PRN Reason: Pain, Mild (Pain Scale 1-3) Clonidine HCl (Clonidine Hcl 0.1 Mg Tablet) 0.1 mg PO BEDTIME [facility]; Protocol Docusate Sodium (Docusate Sodium 100 Mg Capsule) 100 mg PO DAILY PRN PRN Reason: Constipation Gabapentin (Gabapentin 300 Mg Capsule) 300 mg PO BID [facility] Glucose (Glucose Gel 15 Gm Gel..Gram.) 15 gm PO Q15M PRN; Protocol PRN Reason: per Hypoglycemia Standing Ord. Lactated Ringer's (Lr) 1,000 mls @ 100 mls/hr IVCONT .Q10H [facility] Last Admin: 09/28/22 10:39 Dose: Not Given Dextrose (D10) 250 mls @ 750 mls/hr IV Q15M PRN; Protocol PRN Reason: per Hypoglycemia Standing Ord. Insulin Human Lispro (Insulin Lispro 100 Unit/Ml 3 Ml Vial) 0 unit SUBCUT QIDACHS [facility]; Protocol Levothyroxine Sodium (Levothyroxine Sodium 100 Mcg/5 Ml Vial) 31.25 mcg IVPUSH Kenny [facility] Levothyroxine Sodium (Levothyroxine Sodium 100 Mcg/5 Ml Vial) 62.5 mcg IVPUSH MoTuWeThFrSa@0600 [facility] Ondansetron HCl (Ondansetron Hcl 4 Mg/2 Ml Vial) 4 mg IVPUSH Q8H PRN PRN Reason: Nausea and Vomiting Pharmacy Consult (Consult Rx Perform Med Rec) 1 each MISCELLANE ONCE PRN PRN Reason: Consult order Sodium Chloride (0.9 % Sodium Chloride Flush 3 Ml Syringe) 3 ml IVFLUSH QSHIFT [facility] Last Admin: 09/28/22 08:03 Dose: 3 ml Home Medications Medication Instructions Recorded Confirmed Last Taken Type aspirin 81 mg tablet,delayed 81 mg PO DAILY 09/28/22 09/28/22 Unknown History release blood sugar diagnostic (FreeStyle 09/28/22 09/28/22 Unknown History Lite Strips) cholecalciferol (vitamin D3) 25 25 mcg PO DAILY 09/28/22 09/28/22 Unknown History mcg (1,000 unit) capsule (Vitamin D3) clonidine HCl 0.1 mg tablet 0.1 mg PO BEDTIME 09/28/22 09/28/22 Unknown History gabapentin 300 mg capsule 300 mg PO BID 09/28/22 09/28/22 Unknown History gabapentin 300 mg capsule 600 mg PO BEDTIME 09/28/22 09/28/22 Unknown History (Neurontin) insulin glargine 100 unit/mL (3 50 unit subcut BID 09/28/22 09/28/22 Unknown History mL) subcutaneous pen (Lantus Solostar U-100 Insulin) insulin lispro 100 unit/mL See Rx Instructions .Route .COMPLEX 09/28/22 09/28/22 Unknown History subcutaneous pen levothyroxine 125 mcg tablet 62.5 mcg PO KENNY 09/28/22 09/28/22 Unknown History levothyroxine 125 mcg tablet 125 mcg PO MOTUWETHFRSA 09/28/22 09/28/22 Unknown History melatonin 10 mg chewable tablet 10 mg PO BEDTIME 09/28/22 09/28/22 Unknown History pen needle, diabetic 32 gauge x 09/28/22 09/28/22 Unknown History 1/4 (BD Ultra-Fine Micro Pen Needle) simvastatin 20 mg tablet 20 mg PO BEDTIME 09/28/22 09/28/22 Unknown History ubrogepant 100 mg tablet (Ubrelvy) 100 mg PO DIRECTED 09/28/22 09/28/22 Unknown History Physical Exam Vital Signs: Vital Signs: Last Vital Signs Temp 98.7 F 09/28/22 15:10 Pulse 89 09/28/22 15:10 Resp 18 09/28/22 15:10 BP 120/56 L 09/28/22 15:10 Pulse Ox 96 09/28/22 15:10 O2 Del Method Room Air 09/28/22 15:10 BMI result Body Mass Index 42.3 Const: General: cooperative HEENT: Head: Yes normal to inspection Face and sinus: Yes normal facial exam Mouth: Normal oral and palatal mucosa present Teeth and gingiva: dentition normal Eyes: General: appearance normal, both eyes and all related structures Pupils: Equal, round and reactive pupils present Resp: Effort & Inspection: normal respiratory effort Cardio: Rate: regular rate Rhythm: regular rhythm GI: Palpation (GI): Soft to palpation and nontender : General: Yes no CVA tenderness Back/Spine/Pelvis: Back: no CVA tenderness Skin: General skin exam: no rashes or lesions noted Neuro: General: moves all extremities Cranial nerves: Yes Equal, round and reactive pupils present Extrem: General: Yes normal to inspection Psych: Other: confused,moving around in bed,no focal signs,neck supple Results Labs 09/28/22 08:11 09/28/22 08:14 Labs: Short CBC 09/27/22 09/28/22 Range/Units 18:18 08:11 WBC 11.5 H 11.6 H (4.8-10.8) X10*3/uL Hgb 12.8 12.4 (12.0-16.0) g/dl Hct 38.0 38.5 (37.0-47.0) % Plt Count 267 D 252 (160-400) X10*3/uL BMP 09/27/22 09/28/22 18:18 08:14 Sodium 141 139 Potassium 4.0 4.7 Chloride 105 105 Carbon Dioxide 25 17 L BUN 26 H 25 H Creatinine 1.08 1.21 Calcium 9.3 8.7 D Cardiac Enzymes 09/28/22 Range/Units 08:14 Total Creatine Kinase 2485 H (26-140) U/L Liver Function 09/27/22 Range/Units 18:18 Total Bilirubin 1.3 H (0.0-1.0) mg/dL AST 33 H (5-31) U/L ALT 38 H (0-31) U/L Alkaline Phosphatase 119 H (39-117) U/L Albumin 3.9 (3.5-5.0) g/dL Urine 09/27/22 Range/Units 21:21 Urine Color Yellow Urine Appearance Clear Urine pH 5.0 (5.0-9.0) Ur Specific [place] 1.020 (1.005-1.025) Urine Protein Negative (Neg-Trace) mg/dL Urine Glucose (UA) Negative (Negative) mg/dL Microbiology Microbiology Results: Microbiology 09/28/22 03:47 Cerebrospinal Fluid Gram Stain - Final 09/28/22 03:47 Cerebrospinal Fluid CSF Examination - Final 09/28/22 03:47 Cerebrospinal Fluid Fluid Description - Final Assessment and Plan (1) Fever of unknown origin: Status: Acute (2) Acute metabolic encephalopathy: Status: Acute There is recurrent encephalopathic presentations no infectious etiology seen possible hemiplegic migraine or seizure disorder Plan Stop antibiotics if CSF negative. Neurology eval and workup for vasculitis,CVA,migraine which can cause fever. Time Spent With Patient Time: Total time managing care of this patient today ____ minutes.
[2022-09-28] MEDS: Lactated Ringers 1,000 ML 100 ML IVCONT (16:12)
[2022-09-28] MEDS: Insulin Lispro 100 UNIT/ML 3 ML VIAL SUBCUT (16:44)
[2022-09-28 17:27] LABS: Cryptococcus neoformans/gattii Not Detected (Not Detect.); Enterovirus Not Detected (Not Detect.); Escherichia coli K1 Not Detected (Not Detect.); Haemophilus influenzae Not Detected (Not Detect.); Herpes simplex virus 1 Not Detected (Not Detect.); Herpes simplex virus 2 Not Detected (Not Detect.); Human herpesvirus 6 Not Detected (Not Detect.); Human parechovirus Not Detected (Not Detect.); Listeria monocytogenes Not Detected (Not Detect.); Neisseria meningitidis Not Detected (Not Detect.); Streptococcus agalactiae Not Detected (Not Detect.); Streptococcus pneumoniae Not Detected (Not Detect.); Varicella zoster virus Not Detected (Not Detect.)
[2022-09-28 18:20] LABS: Glucose, Whole Blood 354 mg/dL (60-115)
[2022-09-28] MEDS: Insulin Glargine,Hum.rec.anlog 100 UNIT/ML 10 ML VIAL 25 UNIT SUBCUT (18:33)
[2022-09-28 20:04] LABS: Glucose, Whole Blood 338 mg/dL (60-115)
[2022-09-29] MEDS: Lactated Ringers 1,000 ML 100 ML IVCONT (00:51)
[2022-09-29 03:43] VITALS: BP 140/55; PULSE 77; RESP 20; TEMP 36.2; O2SAT 96
[2022-09-29] MEDS: Levothyroxine Sodium 100 MCG/5 ML VIAL 62.5 MCG IVPUSH (06:38)
--- NOTE | 2022-09-29 06:47 | PC.NURSE ---
khoury removed at 0645 kitchen turned away for breakfast order, previous RN noted patient NPO and awaiting speech and swallow eval. Diet is still ordered.
[2022-09-29 07:08] LABS: Glucose, Whole Blood 248 mg/dL (60-115)
[2022-09-29 07:12] VITALS: BP 128/49; PULSE 72; RESP 20; TEMP 36.4; O2SAT 96
[2022-09-29 07:19] LABS: Alanine Aminotransferase 35 U/L (0-31); Albumin Level 3.5 g/dL (3.5-5.0); Alkaline Phosphatase 89 U/L (39-117); Anion Gap 16 (12-20); Aspartate Amino Transferase 52 U/L (5-31); Bilirubin Total 2.5 mg/dL (0.0-1.0); Blood Urea Nitrogen 31 mg/dL (9-16); Calcium 8.8 mg/dL (8.4-10.2); Carbon Dioxide 21 mmol/L (22-29); Chloride 109 mmol/L (96-108); Creatinine Clr Calc Pharmacy 64.3; Estimated Glomerular Filt Rate 53; Glucose Random 254 mg/dL (60-115); Sodium 142 mmol/L (135-145); Total Protein 6.2 g/dL (6.5-8.0)
[2022-09-29 11:07] VITALS: BP 116/52; PULSE 76; RESP 20; TEMP 36.6; O2SAT 96
[2022-09-29 11:13] LABS: Glucose, Whole Blood 225 mg/dL (60-115)
[2022-09-29] MEDS: Insulin Lispro 100 UNIT/ML 3 ML VIAL SUBCUT (12:26)
--- NOTE | 2022-09-29 13:30 | P.CDIM_ITS ---
PROVIDER RESPONSE TEXT: To clarify, the appropriate diagnosis supported by the clinical indicators: Obesity Due to excess calories QUERY TEXT: PHYSICIAN'S DOCUMENTATION REQUEST Date of Query: 09/29/2022 01:16 PM EDT Patient Name: BRII BARTLETT Admit Date: 09/28/2022 Dear iMchael Hogue, A review of the medical record indicates additional documentation may be needed. Please review below and update the documentation accordingly. Clinical Indicators: Height: ( ) 5'5 Weight: ( ) 115.2 kg BMI: ( ) 42.3 Other Clinical Notes Supporting Significance of the BMI: Nutritional Risk Assessment 09/29/22: On therapeutic diet If possible, please provide an associated diagnosis related to the abnormal BMI, such as: Overweight Obesity Due to excess calories Obesity Drug induced Obesity Due to other cause Specify the other cause Severe or Morbid Obesity With alveolar hypoventilation Severe or Morbid Obesity Without alveolar hypoventilation BMI is not significant Other (explain)Clinically unable to determine (explain)Thank you, Marti Phelps RN Use of terms such as suspected, likely, concern for, or probable (associated with a specific diagnosi s that is being evaluated, monitored, or treated as if it exists) are acceptable and can be coded in the inpatient se tting, when documented at the time of discharge. Please use your independent medical judgment in providing your response. THIS QUERY IS PART OF THE PERMANENT MEDICAL RECORD
--- NOTE | 2022-09-29 13:50 | PC.NURSE ---
Patient assessed this morning, more awake, appropriate responses to questions. Patient is calm and cooperative, spoke with provider. Per Dr. Lennie awan/natalie madera.
--- NOTE | 2022-09-29 14:47 | P.DS_ITS ---
DS: Providers Provider Date of Service: 09/29/22 Date of admission: 09/28/22 06:44 Primary care physician: Bhakti Rodgers MD Consults: 09/28/22 06:42 Consult to Infectious Diseases Stat [place]ing [place] [facility] [place] Reason for consultation: hyperthermia, unknown source Has provider been notified: No 09/28/22 06:48 Consult to Neurology Routine Consulting Provider: [facility] Reason for consultation: encephalopathy Has provider been notified: No DS: Diagnosis Discharge Diagnosis (1) Fever of unknown origin: Status: Acute (2) Acute metabolic encephalopathy: Status: Acute DS: Summary Hospital Course Hospital Course: History of presenting illness: Date of Service: 09/28/22 Chief Complaint: altered mental status ?72-year-old female with past medical history of complex migraines, diabetes, HTN, hypothyroidism, HLD who presents to the hospital with her family for altered mental status. ? Patient is completely altered, unable to obtain history from her, history therefore is obtained mostly from ED provider. it appears the patient was shopping with her daughter when all of a sudden she lost the ability to speak.? Per ED provider, patient presents the hospital very altered,? agitated, restless.? according to the family this is an identical presentation will patient has migraine headaches.? According to the ED provider patient was able to move all her extremities well, with no focal deficits, but very restless and screaming help me help me. ? it was reported the patient was seen at [facility] earlier this year for similar findings, we were able to get some records from February 2022, patient was at that time admitted for metabolic encephalopathy which was felt to be related to MAGGY, patient was seen by [facility] on [facility]/06, patient had extensive workup including EEG, which was negative.? As well as numerous CT scans and MRIs with negative workup.? Due to her restlessness and agitation patient did receive 5 of Haldol, 50 of Benadryl, as well as 2 of Ativan, therefore on my interview patient is completely obtunded, she did feel warm to the touch, therefore I requested a temperature, rectal temp was found to be 103.9 ?on initial arrival her vitals were noted to be temp of 98.4 degrees, heart rate of 111, respiratory of 22, 94 on room air She then developed a fever of 103, heart rate of 104, blood pressure stable ?lumbar puncture was also done which was unremarkable ?UA negative, chest x-ray negative, abdominal pelvic CT is negative, head CT negative for any acute changes ?patient has been placed on cooling blanket and will be admitted for further management. Hospital course: 72-year-old female with past medical history of complex migraine headaches, presents to the hospital with altered mental status and noted to have temp of 104 degrees with negative workup #? acute metabolic encephalopathy with high-grade fever resolved likely due to complex migraine with prior similar episodes with fevers, patient underwent extensive negative workup to rule out infection including LP, that was unremarkable CSF PCR viral panel negative, CT head showed no acute stroke, normal neuro examination, patient treated with sedatives including Haldol and Ativan, subsequently woke up with no headache, Feeling better eager to be discharged home at bedside agreed that patient had si milar episodes in the past requiring hospitalization in [facility] and [facility] with prior normal CT head, patient was unable to tolerate MRI studies in the past, patient has a neuro examination coming up soon therefore recommend to have MRI study done as outpatient for diagnostic purpose, recent 24 hour ambulatory EEG study negative . ?? #? hypothyroidism continue Synthroid #? diabetes mellitus on insulin Lantus 50 units b.i.d. and high-dose Humalog sliding scale recommend to follow diabetic diet. #? chronic transaminitis recommend outpatient follow-up. # morbid obesity recommend low-calorie diet and exercise likely contributing to diabetes and sleep apnea Time Spent with Patient Time attestation: Total time managing care of this patient today ____ minutes. Discharge coordination time: Greater than 30 minutes Quality: Safe Use of Opioids Does Pt have an Active Cancer Diagnosis on the Problem List?: No Quality: Stroke Does the patient have a stroke diagnosis?: No Physical Exam Vital Signs: Vital Signs: Last Vital Signs Temp 97.8 F 09/29/22 11:07 Pulse 76 09/29/22 11:07 Resp 20 09/29/22 11:07 BP 116/52 L 09/29/22 11:07 Pulse Ox 96 09/29/22 11:07 O2 Del Method Room Air 09/29/22 11:07 BMI result Body Mass Index 42.3 Const: Other: General awake alert x3 in no acute distress. Puffy eyelids Neck supple no JVD. CVS regular rate rhythm, Respiratory lungs clear to auscultation, no respiratory distress, no wheeze, no rhonchi. Gastrointestinal abdomen soft, nontender, bowel sounds audible, no guarding , no rigidity. Extremities no edema. Neuro nonfocal , moving all 4 extremity, speech clear but slow. Skin no rash Psych appropriate affect DS: Data Data Completed and Pending Labs on day of discharge: Laboratory Results - last 24 hr 09/28/22 09/28/22 09/28/22 09:47 15:56 18:16 Sodium Potassium Chloride Carbon Dioxide Anion Gap BUN Creatinine Estim Creat Clear Calc Estimated GFR POC Glucose 367 H* 354 H* Random Glucose Calcium Total Bilirubin AST ALT Alkaline Phosphatase Total Protein Albumin CSF C.neoform/gat PCR Not Detected CSF CMV DNA (PCR) Not Detected CSF Enterovirus (PCR) Not Detected CSF E. coli K1 (PCR) Not Detected CSF H. influenzae (PCR) Not Detected CSF HSV I (PCR) Not Detected CSF HSV II (PCR) Not Detected CSF HHV 6 (PCR) Not Detected CSF L.monocytogenes PCR Not Detected CSF N. meningitidis PCR Not Detected CSF Parechovirus (PCR) Not Detected CSF S. agalactiae (PCR) Not Detected CSF S. pneumoniae (PCR) Not Detected CSF VZV (PCR) Not Detected 09/28/22 09/29/22 09/29/22 19:59 06:10 07:04 Sodium 142 Potassium 4.0 Chloride 109 H Carbon Dioxide 21 L Anion Gap 16 BUN 31 H Creatinine 1.03 Estim Creat Clear Calc 64.3 Estimated GFR 53 POC Glucose 338 H 248 H Random Glucose 254 H Calcium 8.8 Total Bilirubin 2.5 H AST 52 H ALT 35 H Alkaline Phosphatase 89 Total Protein 6.2 L Albumin 3.5 CSF C.neoform/gat PCR CSF CMV DNA (PCR) CSF Enterovirus (PCR) CSF E. coli K1 (PCR) CSF H. influenzae (PCR) CSF HSV I (PCR) CSF HSV II (PCR) CSF HHV 6 (PCR) CSF L.monocytogenes PCR CSF N. meningitidis PCR CSF Parechovirus (PCR) CSF S. agalactiae (PCR) CSF S. pneumoniae (PCR) CSF VZV (PCR) 09/29/22 11:09 Sodium Potassium Chloride Carbon Dioxide Anion Gap BUN Creatinine Estim Creat Clear Calc Estimated GFR POC Glucose 225 H Random Glucose Calcium Total Bilirubin AST ALT Alkaline Phosphatase Total Protein Albumin CSF C.neoform/gat PCR CSF CMV DNA (PCR) CSF Enterovirus (PCR) CSF E. coli K1 (PCR) CSF H. influenzae (PCR) CSF HSV I (PCR) CSF HSV II (PCR) CSF HHV 6 (PCR) CSF L.monocytogenes PCR CSF N. meningitidis PCR CSF Parechovirus (PCR) CSF S. agalactiae (PCR) CSF S. pneumoniae (PCR) CSF VZV (PCR) Preliminary micro results at discharge 09/28/22 03:47 CSF Culture - Preliminary Cerebrospinal Fluid No growth after 1 day 09/28/22 05:22 Blood Culture - Preliminary Blood - Venous No growth after 24 hours. 09/28/22 05:22 Blood Culture - Preliminary Blood - Venous No growth after 24 hours. Discharge Plan Discharge Anticipated Discharge Date/Time: 09/29/22 14:40 Patient Disposition: Home, Self-Care Discharge Diagnosis: Complex migraine Hyperthermia Referrals: Bhakti Rodgers MD [Primary Care Provider] - 1 Week Discharge Medications: Continued clonidine HCl 0.1 mg tablet 0.1 mg PO BEDTIME (DME) FreeStyle Lite Strips Strip 1 strip MISCELLANEOUS TID simvastatin 20 mg tablet 20 mg PO BEDTIME levothyroxine 125 mcg tablet 125 mcg PO MOTUWETHFRSA gabapentin [Neurontin] 300 mg capsule 600 mg PO BEDTIME Rx Instructions: 2x daily and twice at bedtime insulin lispro 100 unit/mL insulin pen See Rx Instructions .ROUTE .COMPLEX Rx Instructions: inject subq 3x daily with meals per sliding scale 80-99 inject 31 units 100-149 inject 33 units 150-199 inject 37 units 200-249 inject 41 units 250-299 inject 43 units 300-349 inject 45 units 350-399 inject 47 units 400 and higher: inject 49 units and call insulin glargine [Lantus Solostar U-100 Insulin] 100 unit/mL (3 mL) insulin p en 50 unit subcut BID Rx Instructions: inject 50 units subq in the morning (8am) and 50 units at night (8pm) (DME) pen needle, diabetic [BD Ultra-Fine Micro Pen Needle] 32 gauge x 1/4 needle MISCELLANEOUS Ubrelvy 100 mg tablet 100 mg PO DIRECTED Rx Instructions: take at onset of migraine. MRX1 after 2 hours. Do not exceed 2 doses in 24 hours aspirin 81 mg Tablet,Delayed Release (Dr/Ec) 81 mg PO DAILY levothyroxine 125 mcg tablet 62.5 mcg PO KENNY gabapentin 300 mg capsule 300 mg PO BID Patient Comments: 6am and 2pm cholecalciferol (vitamin D3) [Vitamin D3] 25 mcg (1,000 unit) Capsule 25 mcg PO DAILY melatonin 10 mg Tablet,Chewable 10 mg PO BEDTIME Discharge Orders: Discharge Order (Routine); Ordered 09/29/22 Ordered By: Michael Hogue Diet: Diabetic diet Activity on Discharge: As tolerated Stand Alone Forms: Patient Portal Discharge page Care Plan Goals: Take Ubrevly at the beginning of migraine headache and rest Health Concerns: Obstructive sleep apnea Insomnia Continue all home medications Plan of Treatment: follow-up with primary care physician and Neurology call for appointment Assessment: As above Discharge Date/Time: 09/29/22 16:45
--- NOTE | 2022-09-29 15:01 | MHC.CM.PN ---
Pt medically cleared for D/C home today, pts to transport.
[2022-10-07 20:38] LABS: Lyme IgG CSF Immunoblot NO BANDS DETECTED; Lyme IgM CSF Immunoblot NO BANDS DETECTED
== END 2022-09-29 16:45 | disposition home or self-care (01) | DRG 102 ==
LOC: HO.ED 09-28 01:15 → HO.EDOVER 09-28 07:33 → HO.IMC 09-28 12:41
PROVIDERS: Emergency Medicine; Physician Assistant; Admitting Provider Internal Medicine; Emergency Provider Internal Medicine; PCP Internal Medicine; Visit Provider Hospitalist
DX: G43.109 Migraine with aura, not intractable, without status migrainosus (principal); G93.41 Metabolic encephalopathy; Z68.41 Body mass index [BMI] 40.0-44.9, adult; E78.5 Hyperlipidemia, unspecified; E03.9 Hypothyroidism, unspecified; E11.9 Type 2 diabetes mellitus without complications; E66.01 Morbid (severe) obesity due to excess calories; R50.9 Fever, unspecified; I10 Essential (primary) hypertension; Z91.041 Radiographic dye allergy status; Z20.822 Contact with and (suspected) exposure to COVID-19; Z79.4 Long term (current) use of insulin; Z79.890 Hormone replacement therapy; Z79.899 Other long term (current) drug therapy
CPT/HCPCS: 36415; 70450; 71045; 74177; 80048; 80053; 80307; 81001; 82550; 82803; 82945; 82947; 83605; 83690; 84157; 84443; 85025; 85610; 85730; 86617; 87015; 87040; 87070; 87205; 87483; 87635; 89051; 93005; 99285; C1758; J0131; J0133; J0696; J1100; J1200; J1885; J2060; J3370; Q9967

== ENCOUNTER 2022-09-30 20:02 | Inpatient (IN) | payer MEDICARE, SELFPAY ==
--- NOTE | ~2022-09-30 | MR_ITS ---
MRI OF THE BRAIN WITHOUT IV CONTRAST INDICATION: Altered mentation. COMPARISON: CT head 09/27/2022 and brain MRI 03/27/2018. TECHNIQUE: Multiplanar multisequence MR imaging of the brain was obtained without IV contrast. FINDINGS: Limited motion degraded MRI of the brain. There is mild chronic microangiopathy. There is no hydrocephalus, extra-axial surface collection, or herniation. The major flow voids at the skull base are preserved. There is no acute infarct on diffusion-weighted imaging. There is no intracranial hemorrhage on the gradient recalled echo acquisition. The midline structures are normal. The cerebellar tonsils are normally positioned. The cerebellum and brainstem are normal. The craniocervical junction is normal. Osseous marrow signal intensity is homogenous. The visualized soft tissues are unremarkable. MR/MR head/brain wo con IMPRESSION: - No acute intracranial findings. No acute infarcts. - There is mild chronic microangiopathy.
[2022-09-30 20:12] VITALS: BMI 42.9
--- NOTE | 2022-09-30 20:25 | ED_ITS ---
HPI - Neuro Symptoms/Deficit General Chief Complaint: Headache Stated Complaint: Altered Mental Status Time Seen by Provider: 09/30/22 20:05 Source: EMS Mode of arrival: EMS History of Present Illness HPI Narrative: Patient history of complex migraine with history of neurological symptoms associated with migraine along with fever has happened many times with details workup negative including at [facility] the patient was discharged after extensive workup from here yesterday was feeling better after discharge at 17:30 patient to stop talking moving all 4 extremities unclear whether has headache or not Related Data Home Medications Medication Instructions Recorded Confirmed blood sugar diagnostic (FreeStyle 09/28/22 09/28/22 Lite Strips) clonidine HCl 0.1 mg tablet 0.1 mg PO BEDTIME 09/28/22 10/01/22 gabapentin 300 mg capsule 300 mg PO BID 09/28/22 10/01/22 gabapentin 300 mg capsule 600 mg PO BEDTIME 09/28/22 10/01/22 (Neurontin) insulin glargine 100 unit/mL (3 50 unit subcut BID 09/28/22 10/01/22 mL) subcutaneous pen (Lantus Solostar U-100 Insulin) insulin lispro 100 unit/mL See Rx Instructions .Route .COMPLEX 09/28/22 10/01/22 subcutaneous pen levothyroxine 125 mcg tablet 125 mcg PO MOTUWETHFRSA 09/28/22 10/01/22 pen needle, diabetic 32 gauge x 09/28/22 09/28/2205/13 (BD Ultra-Fine Micro Pen Needle) simvastatin 20 mg tablet 20 mg PO BEDTIME 09/28/22 10/01/22 ubrogepant 100 mg tablet (Ubrelvy) 100 mg PO DIRECTED 09/28/22 10/01/22 lisinopril 5 mg tablet 5 mg PO DAILY 10/01/22 10/01/22 mirtazapine 15 mg tablet 15 mg PO BEDTIME 10/01/22 10/01/22 primidone 50 mg tablet 50 mg PO TID 10/01/22 10/01/22 quetiapine 50 mg tablet 50 mg PO BEDTIME 10/01/22 10/01/22 Allergies Allergy/AdvReac Type Severity Reaction Status Date / Time Iodinated Contrast Media Allergy Severe SEDATION,TA Verified 07/24/20 19:30 [IVP DYE] CHYCARDIA erythromycin base Allergy Unknown HIVES Verified 07/24/20 19:30 [ERYTHROMYCIN BASE] Review of Systems Review of Systems: Yes Unobtainable due to mental status PMFSH Past Medical History Medical History (Updated 10/01/22 @ 00:43 by Armando Cruz MD) Complicated migraine Diabetes HLD (hyperlipidemia) HTN (hypertension) Hypothyroid Surgical History H/O section Hx of cholecystectomy Family History Family History Other Lung cancer Social History Social History Household Members: Spouse Housing: House Do you presently have visiting nurse or other home services: No (just finished last week) Unable to assess alcohol history related to: Unknown Alcohol intake: former Patient Tobacco Use Status: Never used Tobacco e-Cigarette/Vaping Use: Never Used Second Hand Smoke Exposure: No Advance Directives: Yes Advance Directives on File: Yes Advance Directives Date on File: 09/28/22 service: No Current occupational status: retired Physical Exam Vital Signs: Vital Signs: Last Vital Signs Temp 102.6 F H 09/30/22 23:30 Pulse 81 10/01/22 00:04 Resp 16 10/01/22 00:04 BP 154/69 H 10/01/22 00:04 Pulse Ox 92 10/01/22 00:04 O2 Del Method Room Air 10/01/22 00:04 BMI result Body Mass Index 42.9 Appearance: Awake nonverbal No acute distress. Nonverbal Eyes: PERRLA, No Nystagmus ENT: Pharynx normal. Oral Mucosa moist Neck: Normal inspection. Neck supple. CVS: Normal heart rate and rhythm. Pulses normal. Respiratory: No respiratory distress. Equal air entry bilateral, no wheezing/rales/rhonchi Abdomen: Soft and nontender. Bowel sounds are present, no mass palpable, no CVA tenderness Skin: Skin warm and dry normal tone bilateral. Normal skin color. Normal skin turgor. Extremities: No lower extremity edema. No calf tenderness Neuro: Oriented X 3. No motor deficit. No sensory deficit.No cerebellar signs , cranial nerves II-XII intact nonverbal Medications Administered Generic Name Dose Route Start Last Admin Trade Name Freq PRN Reason Stop Dose Admin Enoxaparin Sodium 40 mg 09/30/22 23:45 10/01/22 00:25 Enoxaparin Sodium 40 Mg/0.4 Ml Syringe SUBCUT 40 mg 2200 CARLOTTA Administration Insulin Glargine 25 unit 09/30/22 23:55 10/01/22 00:25 Insulin Glargine,Hum.Rec.Anlog 100 Unit/Ml 10 Ml Vial SUBCUT 25 unit BID CARLOTTA Administration Insulin Human Lispro 0 unit 10/01/22 00:00 10/01/22 00:26 Insulin Lispro 100 Unit/Ml 3 Ml Vial SUBCUT Not Given Q6H [facility] Protocol Sodium Chloride 3 ml 10/01/22 00:00 10/01/22 00:26 0.9 % Sodium Chloride Flush 3 Ml Syringe IVFLUSH 3 ml QSHIFT [facility] Administration Discontinued Medications Generic Name Dose Route Start Last Admin Trade Name Sheila PRN Reason Stop Dose Admin Acetaminophen 650 mg 09/30/22 20:44 09/30/22 20:49 Acetaminophen Supp 650 Mg Supp.Rect FL 09/30/22 20:45 650 mg ONCE ONE Administration Dexamethasone Sodium Phosphate 10 mg 09/30/22 21:54 09/30/22 22:12 Dexamethasone Sod Phosphate 10 Mg/Ml Vial IVPUSH 09/30/22 21:55 10 mg ONCE ONE Administration Diphenhydramine HCl 25 mg 09/30/22 21:54 09/30/22 22:11 Diphenhydramine Hcl 50 Mg/Ml Vial IVPUSH 09/30/22 21:55 25 mg ONCE ONE Administration Ketorolac Tromethamine 30 mg 09/30/22 21:54 09/30/22 22:12 Ketorolac Tromethamine 30 Mg/Ml Vial IVPUSH 09/30/22 21:55 30 mg ONCE ONE Administration Lorazepam 1 mg 09/30/22 20:10 09/30/22 20:32 Lorazepam 2 Mg/Ml Vial IVPUSH 09/30/22 20:11 1 mg ONCE ONE Administration Metoclopramide HCl 10 mg 09/30/22 20:10 09/30/22 20:32 Metoclopramide Hcl 10 Mg/2 Ml Vial IVPUSH 09/30/22 20:11 10 mg ONCE ONE Administration Sumatriptan Succinate 6 mg 09/30/22 20:10 09/30/22 20:32 Sumatriptan Succinate 6 Mg/0.5 Ml Vial SUBCUT 09/30/22 20:11 6 mg ONCE ONE Administration Medical Decision Making Medical Decision Making [facility] Narrative: Patient history of complex migraine with fever a neuro deficits with frequent ED visits with detailed workup negative came with similar situation improved after Ativan and Imitrex able to move at this time will treat migraine for admission for observation Consult Healthcare Provider Management of the patient was discussed with: Hospitalist Lab Data [facility] Lab Attestation statement: I reviewed the patient's lab results. 09/30/22 20:31 09/30/22 20:31 Labs: Lab Results 09/30/22 09/30/22 09/30/22 Range/Units 20:12 20:31 20:31 WBC 14.1 H (4.8-10.8) X10*3/uL RBC 4.10 L (4.20-5.50) X10*6/uL Hgb 12.4 (12.0-16.0) g/dl Hct 36.5 L (37.0-47.0) % MCV 89.0 (80.0-98.0) fL MCH 30.2 (27.0-33.0) pg MCHC 34.0 (31.0-35.0) g/dl RDW 12.3 (11.0-16.0) % Plt Count 318 D (160-400) X10*3/uL MPV 11.6 (9.4-12.3) fL Immature Gran % (Auto) 0.4 (0.0-0.4) % Neut % (Auto) 72.3 (45-73) % Lymph % (Auto) 18.2 L (20-40) % [place] % (Auto) 8.0 (2-11) % Eos % (Auto) 0.8 (0-4) % Baso % (Auto) 0.3 (0-2) % Lymph # (Auto) 2.6 (1.2-4.9) X10*3/uL [place] # (Auto) 1.1 (0.1-1.2) X10*3/uL Eos # (Auto) 0.1 (0.0-0.4) X10*3/uL Baso # (Auto) 0.0 (0.0-0.2) X10*3/uL Abs Immat Gran (auto) 0.06 H (0.00-0.03) X10*3/uL Absolute Neuts (auto) 10.2 H (2.0-8.3) x10*3/uL Absolute Nucleated RBC 0.000 (0.0-0.012) X10*3/uL Nucleated RBC % (auto) 0.0 (0.0-0.2) /100WBC Sodium 142 (135-145) mmol/L Potassium 4.1 (3.3-5.1) mmol/L Chloride 107 (96-108) mmol/L Carbon Dioxide 25 (22-29) mmol/L Anion Gap 14 (12-20) BUN 24 H (9-16) mg/dL Creatinine 1.08 (0.5-1.4) mg/dL Estim Creat Clear Calc 59.8 Estimated GFR 50 POC Glucose 162 H (60-115) mg/dL Random Glucose 144 H (60-115) mg/dL Calcium 8.8 (8.4-10.2) mg/dL Total Bilirubin 1.5 H (0.0-1.0) mg/dL AST 53 H (5-31) U/L ALT 50 H (0-31) U/L Alkaline Phosphatase 103 (39-117) U/L Total Protein 6.6 (6.5-8.0) g/dL Albumin 3.7 (3.5-5.0) g/dL Discharge Plan Discharge Clinical Impression: Complicated migraine, Fever of unknown origin Patient Disposition: Admitted As Inpatient
[2022-09-30] MEDS: SUMAtriptan succinate 6 MG/0.5 ML VIAL SUBCUT (20:32)
[2022-09-30] MEDS: LORazepam 2 MG/ML VIAL 1 MG IVPUSH (20:32)
[2022-09-30] MEDS: Metoclopramide HCl 10 MG/2 ML VIAL IVPUSH (20:32)
[2022-09-30 20:35] LABS: Glucose, Whole Blood 162 mg/dL (60-115)
[2022-09-30 20:35] LABS: MANUAL DIFF FLAG NO
[2022-09-30 20:38] VITALS: BP 183/62; PULSE 84; RESP 18; TEMP 38.4; O2SAT 96
[2022-09-30 20:46] LABS: Basophils Percent Auto 0.3 % (0-2); Eosinophils Absolute Auto 0.1 X10*3/uL (0.0-0.4); Eosinophils Percent Auto 0.8 % (0-4); Hematocrit 36.5 % (37.0-47.0); Hemoglobin 12.4 g/dl (12.0-16.0); Imm Gran Abs Auto 0.06 X10*3/uL (0.00-0.03); Imm Gran Pct Auto 0.4 % (0.0-0.4); Lymphocytes Absolute Auto 2.6 X10*3/uL (1.2-4.9); Lymphocytes Percent Auto 18.2 % (20-40); Mean Corpuscular Hemoglobin 30.2 pg (27.0-33.0); Mean Platelet Volume 11.6 fL (9.4-12.3); Monocytes Absolute Auto 1.1 X10*3/uL (0.1-1.2); Neutrophils Absolute Auto 10.2 x10*3/uL (2.0-8.3); Neutrophils Percent Auto 72.3 % (45-73); Platelet Count 318 X10*3/uL (160-400); Red Cell Distribution Width 12.3 % (11.0-16.0); White Blood Count 14.1 X10*3/uL (4.8-10.8)
[2022-09-30] MEDS: Acetaminophen Supp 650 MG SUPP.RECT PR (20:49)
[2022-09-30 20:55] LABS: Alanine Aminotransferase 50 U/L (0-31); Albumin Level 3.7 g/dL (3.5-5.0); Alkaline Phosphatase 103 U/L (39-117); Anion Gap 14 (12-20); Aspartate Amino Transferase 53 U/L (5-31); Bilirubin Total 1.5 mg/dL (0.0-1.0); Blood Urea Nitrogen 24 mg/dL (9-16); Calcium 8.8 mg/dL (8.4-10.2); Carbon Dioxide 25 mmol/L (22-29); Chloride 107 mmol/L (96-108); Creatinine Clr Calc Pharmacy 59.8; Estimated Glomerular Filt Rate 50; Glucose Random 144 mg/dL (60-115); Potassium 4.1 mmol/L (3.3-5.1); Sodium 142 mmol/L (135-145); Total Protein 6.6 g/dL (6.5-8.0)
--- NOTE | 2022-09-30 20:57 | PC.NURSE ---
Pt alert, not oriented. Responds to verbal stimuli. Not verbal at this time. Family at bedside reports this is different for her . Rectal temp noted to be 101.1F. IV line started. Pt medicated as ordered. Tolerated well. Labs drawn and sent. Pending lab results. aware.
[2022-09-30 21:31] VITALS: BP 171/69; PULSE 92; RESP 12; TEMP 38.4; O2SAT 98
[2022-09-30 22:06] VITALS: BP 138/57; PULSE 93; RESP 18; TEMP 38.9; O2SAT 97
[2022-09-30] MEDS: diphenhydrAMINE HCL 50 MG/ML VIAL 25 MG IVPUSH (22:11)
[2022-09-30] MEDS: Ketorolac Tromethamine 30 MG/ML VIAL IVPUSH (22:12)
[2022-09-30] MEDS: dexAMETHasone sod phosphate 10 MG/ML VIAL IVPUSH (22:12)
[2022-09-30 23:30] VITALS: TEMP 39.2
--- NOTE | 2022-09-30 23:33 | PC.NURSE ---
Rectal temp 102.6F. Dr Conde aware.
--- NOTE | 2022-09-30 23:44 | P.HPHOSP_ITS ---
History of Present Illness Date of Service: 09/30/22 Chief Complaint: Altered mentation This is a 72-year-old female with pertinent history of complex migraine, hypothyroidism, insulin-dependent diabetes mellitus who was brought to the emergency department by her for evaluation of altered mentation. Wilberto kelly was recently admitted on 09/28 and discharged on 09/29 with acute encephalopathy and high-grade fever likely due to complex migraine. Patient has had similar episodes with fevers in the past and has had extensive workup including LP that was unremarkable. Infectious etiology ruled out during prior admission. Patient was evaluated by Neurology who thought that patient's symptoms were due to complex migraine and with bed to fit from MRI. Patient workup during hospital course and wanted to be discharged with outpatient MRI. Patient also had a recent 24 hour ambulatory EEG study negative. Unable to obtain history or review of systems from the patient Review of Systems Review of Systems: Yes Unobtainable due to mental status [facility] Medical History (Updated 09/30/22 @ 23:55 by Tao Villanueva MD) Complicated migraine Diabetes HLD (hyperlipidemia) HTN (hypertension) Hypothyroid Family History Other Lung cancer Surgical History H/O section Hx of cholecystectomy Social History Household Members: Spouse Housing: House Do you presently have visiting nurse or other home services: No (just finished last week) Unable to assess alcohol history related to: Unknown Alcohol intake: former Patient Tobacco Use Status: Never used Tobacco e-Cigarette/Vaping Use: Never Used Second Hand Smoke Exposure: No Advance Directives: Yes Advance Directives on File: Yes Advance Directives Date on File: 09/28/22 service: No Current occupational status: retired Meds Allergies Allergy/AdvReac Type Severity Reaction Status Date / Time Iodinated Contrast Media Allergy Severe SEDATION,TA Verified 07/24/20 19:30 [IVP DYE] CHYCARDIA erythromycin base Allergy Unknown HIVES Verified 07/24/20 19:30 [ERYTHROMYCIN BASE] Home Medications Medication Instructions Recorded Confirmed Last Taken Type aspirin 81 mg tablet,delayed 81 mg PO DAILY 09/28/22 09/28/22 Unknown History release blood sugar diagnostic (FreeStyle 09/28/22 09/28/22 Unknown History Lite Strips) cholecalciferol (vitamin D3) 25 25 mcg PO DAILY 09/28/22 09/28/22 Unknown History mcg (1,000 unit) capsule (Vitamin D3) clonidine HCl 0.1 mg tablet 0.1 mg PO BEDTIME 09/28/22 09/28/22 Unknown History gabapentin 300 mg capsule 300 mg PO BID 09/28/22 09/28/22 Unknown History gabapentin 300 mg capsule 600 mg PO BEDTIME 09/28/22 09/28/22 Unknown History (Neurontin) insulin glargine 100 unit/mL (3 50 unit subcut BID 09/28/22 09/28/22 Unknown History mL) subcutaneous pen (Lantus Solostar U-100 Insulin) insulin lispro 100 unit/mL See Rx Instructions .Route .COMPLEX 09/28/22 09/28/22 Unknown History subcutaneous pen levothyroxine 125 mcg tablet 62.5 mcg PO KENNY 09/28/22 09/28/22 Unknown History levothyroxine 125 mcg tablet 125 mcg PO MOTUWETHFRSA 09/28/22 09/28/22 Unknown History melatonin 10 mg chewable tablet 10 mg PO BEDTIME 09/28/22 09/28/22 Unknown History pen needle, diabetic 32 gauge x 09/28/22 09/28/22 Unknown History 1/4 (BD Ultra-Fine Micro Pen Needle) simvastatin 20 mg tablet 20 mg PO BEDTIME 09/28/22 09/28/22 Unknown History ubrogepant 100 mg tablet (Ubrelvy) 100 mg PO DIRECTED 09/28/22 09/28/22 Unknown History Physical Exam Vital Signs and Narrative: Vital Signs: Last Vital Signs Temp 102.6 F H 09/30/22 23:30 Pulse 93 09/30/22 22:06 Resp 18 09/30/22 22:06 BP 138/57 L 09/30/22 22:06 Pulse Ox 97 09/30/22 22:06 O2 Del Method Room Air 09/30/22 22:06 BMI result Body Mass Index 42.9 Elderly female lying in bed in no distress Neck supple, no JVD Regular rate and rhythm, S1-S2 heard Regular breath sounds bilaterally, no wheezing or crackles appreciated Abdomen soft nontender, no guarding, no rigidity Patient is somnolent and only winces to painful stimulus, not responding to verbal stimulus Results Labs 09/30/22 20:31 09/30/22 20:31 Labs: Laboratory Results - last 24 hr 09/30/22 09/30/22 09/30/22 20:12 20:31 20:31 MCV 89.0 MCH 30.2 MCHC 34.0 RDW 12.3 Plt Count 318 D MPV 11.6 Immature Gran % (Auto) 0.4 Neut % (Auto) 72.3 Lymph % (Auto) 18.2 L [place] % (Auto) 8.0 Eos % (Auto) 0.8 Baso % (Auto) 0.3 Lymph # (Auto) 2.6 [place] # (Auto) 1.1 Eos # (Auto) 0.1 Baso # (Auto) 0.0 Abs Immat Gran (auto) 0.06 H Absolute Neuts (auto) 10.2 H Absolute Nucleated RBC 0.000 Nucleated RBC % (auto) 0.0 Anion Gap 14 Estim Creat Clear Calc 59.8 Estimated GFR 50 POC Glucose 162 H Random Glucose 144 H Calcium 8.8 Total Bilirubin 1.5 H AST 53 H ALT 50 H Alkaline Phosphatase 103 Total Protein 6.6 Albumin 3.7 Assessment and Plan (1) Complicated migraine: Status: Acute Plan This is a 72-year-old female with pertinent history of complex migraine, hypothyroidism, insulin-dependent diabetes mellitus who was brought to the emergency department by her for evaluation of altered mentation. #. Acute encephalopathy with fever, likely due to complex migraine: Will admit patient and obtain MRI for diagnostic purpose. Consulted Neurology, appreciate assistance. Continue supportive care. Extensive workup during similar episodes in the past including LP, 24 hour EEG, CT head which was negative. Was also evaluated by ID during previous admission who ruled out infectious etiology #. Hypothyroidism: On Synthroid #. Insulin-dependent diabetes mellitus. Reduce home basal insulin and initiate Accu-Cheks with sliding scale insulin every 6 hours Med rec pending DVT prophylaxis: Lovenox Full code NPO until mentation improves Time Spent With Patient Time: Total time managing care of this patient today ____ minutes. Quality Stroke Does the patient have a stroke diagnosis?: No VTE Prior VTE?: No VTE Risk Level:: Medical - moderate - high VTE Device Contraindication: Treatment Not Indicated VTE Drug Contraindication: N/A - Med Ordered
--- NOTE | 2022-10-01 | EEG_ITS ---
This is a 16-channel EEG with an EKG lead. The patient is reported uncooperative with the tracing resulting in almost continuous muscle artifacts. Background EEG rhythm was low to medium amplitude with no obvious paroxysmal activity, sharp waves or spikes. Cardiac lead did not reveal any significant abnormality. Photic stimulation and hyperventilation could not be performed. IMPRESSION: Limited EEG because of the patient's restlessness and uncooperativeness. No definite epileptic tendency was noted. MD DANN German/SHELBY / [id number]
[2022-10-01 00:04] VITALS: BP 154/69; PULSE 81; RESP 16; O2SAT 92
[2022-10-01 00:22] LABS: Glucose, Whole Blood 107 mg/dL (60-115)
[2022-10-01] MEDS: Insulin Glargine,Hum.rec.anlog 100 UNIT/ML 10 ML VIAL 25 UNIT SUBCUT ×2 (00:25→09:45)
[2022-10-01] MEDS: Enoxaparin Sodium 40 MG/0.4 ML SYRINGE SUBCUT ×2 (00:25→21:35)
[2022-10-01] MEDS: 0.9 % Sodium Chloride Flush 3 ML SYRINGE IVFLUSH ×3 (00:26→17:05)
--- NOTE | 2022-10-01 00:39 | PC.NURSE ---
Med req completed
--- NOTE | 2022-10-01 05:04 | PC.NURSE ---
Pt alert, not oriented and non verbal. Makes moaning/groining noises at times as if feeling discomfort. Does not answer questions. Repositioned hourly to improve comfort. VSS. NSR on monitor with HR 90. Breaths are even and unlabored with equal chest rises. Abd soft, distended, and non tender. Pending bed assignment. Will continue to monitor.
[2022-10-01 06:12] LABS: Glucose, Whole Blood 180 mg/dL (60-115)
[2022-10-01] MEDS: Insulin Lispro 100 UNIT/ML 3 ML VIAL SUBCUT ×3 (06:14→17:25)
[2022-10-01 06:20] VITALS: BP 182/70; PULSE 77; RESP 12; TEMP 36.6; O2SAT 97
[2022-10-01 06:40] LABS: MANUAL DIFF FLAG NO
[2022-10-01 06:42] LABS: Basophils Percent Auto 0.2 % (0-2); Hemoglobin 12.4 g/dl (12.0-16.0); Imm Gran Abs Auto 0.06 X10*3/uL (0.00-0.03); Imm Gran Pct Auto 0.6 % (0.0-0.4); Lymphocytes Absolute Auto 1.4 X10*3/uL (1.2-4.9); Lymphocytes Percent Auto 14.8 % (20-40); Mean Corpuscular HGB Conc 34.4 g/dl (31.0-35.0); Mean Corpuscular Hemoglobin 30.3 pg (27.0-33.0); Mean Platelet Volume 11.8 fL (9.4-12.3); Monocytes Absolute Auto 0.2 X10*3/uL (0.1-1.2); Monocytes Percent Auto 1.8 % (2-11); Neutrophils Absolute Auto 8.1 x10*3/uL (2.0-8.3); Neutrophils Percent Auto 82.6 % (45-73); Platelet Count 313 X10*3/uL (160-400); Red Blood Count 4.09 X10*6/uL (4.20-5.50); Red Cell Distribution Width 12.4 % (11.0-16.0); White Blood Count 9.8 X10*3/uL (4.8-10.8)
[2022-10-01 06:58] LABS: Anion Gap 14 (12-20); Blood Urea Nitrogen 22 mg/dL (9-16); Calcium 8.7 mg/dL (8.4-10.2); Carbon Dioxide 23 mmol/L (22-29); Chloride 107 mmol/L (96-108); Creatinine Clr Calc Pharmacy 64.6; Estimated Glomerular Filt Rate 55; Glucose Random 165 mg/dL (60-115); Potassium 4.3 mmol/L (3.3-5.1); Sodium 140 mmol/L (135-145)
--- NOTE | 2022-10-01 07:10 | PHA.MEDREC ---
Pharmacy Consult ? Medication Reconciliation Pharmacy has completed the medication reconciliation. Pt discharged 09/29/22; used discharge summary for updated medications
--- NOTE | 2022-10-01 08:23 | PC.NURSE ---
MRI screening form sent to MRI. spoke with to answer questions.
[2022-10-01 08:57] LABS: Glucose, Whole Blood 169 mg/dL (60-115)
--- NOTE | 2022-10-01 09:12 | MHC.EDTECH ---
Assisted patient with personal hygiene. Changed patients gown and linen. Removed Purewick due to patient laying on her side, rendering the Purewick ineffective. Leilani Delvalle
[2022-10-01 11:39] VITALS: BP 169/72; PULSE 74; RESP 16; TEMP 36.2; O2SAT 96
[2022-10-01 11:51] LABS: Glucose, Whole Blood 171 mg/dL (60-115)
--- NOTE | 2022-10-01 12:16 | HO.PM.IMPN ---
Subjective Subjective Date of Service: 10/01/22 Interval History: seen and examined this morning follow up for fever, AMS patient appears to be resting comfortably, eyes open when hears name, but not responding verbally. moving all extremities, but not following commands unable to obtain ROS Physical Exam Vital Signs: Vital Signs: Last Vital Signs Temp 97.1 F 10/01/22 11:39 Pulse 74 10/01/22 11:39 Resp 16 10/01/22 11:39 BP 169/72 H 10/01/22 11:39 Pulse Ox 96 10/01/22 11:39 O2 Del Method Room Air 10/01/22 11:39 BMI result Body Mass Index 42.9 Const: Other: lying in bed, appears comfortable. Eyes open when she hears her name does not respond verbally does not follow most commands Resp: Effort & Inspection: normal respiratory effort, no respiratory distress and no use of accessory muscles Auscultation: clear to auscultation bilaterally Cardio: Rate: regular rate Heart sounds: S1 normal heart sound present and S2 normal heart sound present GI: Other: appears non-tender Inspection: No distended Palpation (GI): Soft to palpation Neuro: Other: limited exam, unable to assess orientation. patient noted to be moving all extremities spontaneously, but not on command Extrem: General: Yes no pedal edema Objective Data Active Medications Acetaminophen (Acetaminophen Supp 650 Mg Supp.Rect) 650 mg [place] Q6H PRN PRN Reason: Pain, Mild (Pain Scale 1-3) Aspirin (Aspirin Enteric Coated 81 Mg Tablet.Dr) 81 mg PO DAILY [facility] Atorvastatin Calcium (Atorvastatin Calcium 10 Mg Tablet) 10 mg PO BEDTIME [facility] Clonidine HCl (Clonidine Hcl 0.1 Mg Tablet) 0.1 mg PO BEDTIME [facility]; Protocol Enoxaparin Sodium (Enoxaparin Sodium 40 Mg/0.4 Ml Syringe) 40 mg SUBCUT 2200 [facility] Last Admin: 10/01/22 00:25 Dose: 40 mg Documented By: CARLOS Glucose (Glucose Gel 15 Gm Gel..Gram.) 15 gm PO Q15M PRN; Protocol PRN Reason: per Hypoglycemia Standing Ord. Dextrose (D10) 250 mls @ 750 mls/hr IV Q15M PRN; Protocol PRN Reason: per Hypoglycemia Standing Ord. Acyclovir Sodium 781.79 mg/ (Sodium Chloride) 115.6358 mls @ 115.636 mls/hr IV Q8H [facility]END[facility] TO [facility] Insulin Glargine (Insulin Glargine,Hum.Rec.Anlog 100 Unit/Ml 10 Ml Vial) 25 unit SUBCUT BID [facility] Last Admin: 10/01/22 09:45 Dose: 25 unit Documented By: HENRIK Insulin Human Lispro (Insulin Lispro 100 Unit/Ml 3 Ml Vial) 0 unit SUBCUT Q6H [facility]; Protocol Last Admin: 10/01/22 06:14 Dose: 2 unit Documented By: CARLOS Levothyroxine Sodium (Levothyroxine Sodium 125 Mcg Tablet) 62.5 mcg PO Bess@0600 [facility] Levothyroxine Sodium (Levothyroxine Sodium 125 Mcg Tablet) 125 mcg PO MoTuWeThFrSa@0600 [facility] Last Admin: 10/01/22 10:46 Dose: Not Given Documented By: HENRIK Non-Admin Reason: patient lethargic Melatonin (Melatonin 3 Mg Tablet) 6 mg PO BEDTIME PRN PRN Reason: Insomnia Ondansetron HCl (Ondansetron Hcl 4 Mg/2 Ml Vial) 4 mg IVPUSH Q8H PRN PRN Reason: Nausea and Vomiting Pharmacy Consult (Consult Rx Perform Med Rec) 1 each MISCELLANE ONCE PRN PRN Reason: Consult order Sodium Chloride (0.9 % Sodium Chloride Flush 3 Ml Syringe) 3 ml IVFLUSH QSHIFT [facility] Last Admin: 10/01/22 07:20 Dose: 3 ml Documented By: HENRIK Labs 10/01/22 05:42 10/01/22 05:42 Labs: Laboratory Results - last 24 hr 09/30/22 09/30/22 09/30/22 20:12 20:31 20:31 MCV 89.0 MCH 30.2 MCHC 34.0 RDW 12.3 Plt Count 318 D MPV 11.6 Immature Gran % (Auto) 0.4 Neut % (Auto) 72.3 Lymph % (Auto) 18.2 L [place] % (Auto) 8.0 Eos % (Auto) 0.8 Baso % (Auto) 0.3 Lymph # (Auto) 2.6 [place] # (Auto) 1.1 Eos # (Auto) 0.1 Baso # (Auto) 0.0 Abs Immat Gran (auto) 0.06 H Absolute Neuts (auto) 10.2 H Absolute Nucleated RBC 0.000 Nucleated RBC % (auto) 0.0 Anion Gap 14 Estim Creat Clear Calc 59.8 Estimated GFR 50 POC Glucose 162 H Random Glucose 144 H Calcium 8.8 Total Bilirubin 1.5 H AST 53 H ALT 50 H Alkaline Phosphatase 103 Total Protein 6.6 Albumin 3.7 10/01/22 10/01/22 10/01/22 00:18 05:42 05:42 MCV 88.0 MCH 30.3 MCHC 34.4 RDW 12.4 Plt Count 313 MPV 11.8 Immature Gran % (Auto) 0.6 H Neut % (Auto) 82.6 H Lymph % (Auto) 14.8 L [place] % (Auto) 1.8 L Eos % (Auto) 0.0 Baso % (Auto) 0.2 Lymph # (Auto) 1.4 [place] # (Auto) 0.2 Eos # (Auto) 0.0 Baso # (Auto) 0.0 Abs Immat Gran (auto) 0.06 H Absolute Neuts (auto) 8.1 Absolute Nucleated RBC 0.000 Nucleated RBC % (auto) 0.0 Anion Gap 14 Estim Creat Clear Calc 64.6 Estimated GFR 55 POC Glucose 107 Random Glucose 165 H Calcium 8.7 Total Bilirubin AST ALT Alkaline Phosphatase Total Protein Albumin 10/01/22 10/01/22 10/01/22 06:08 08:52 11:48 MCV MCH MCHC RDW Plt Count MPV Immature Gran % (Auto) Neut % (Auto) Lymph % (Auto) [place] % (Auto) Eos % (Auto) Baso % (Auto) Lymph # (Auto) [place] # (Auto) Eos # (Auto) Baso # (Auto) Abs Immat Gran (auto) Absolute Neuts (auto) Absolute Nucleated RBC Nucleated RBC % (auto) Anion Gap Estim Creat Clear Calc Estimated GFR POC Glucose 180 H 169 H 171 H Random Glucose Calcium Total Bilirubin AST ALT Alkaline Phosphatase Total Protein Albumin Assessment and Plan (1) Acute metabolic encephalopathy: Status: Acute Plan This is a 72-year-old female with pertinent history of complex migraine, hypothyroidism, insulin-dependent diabetes mellitus who was brought to the emergency department by her for evaluation of altered mentation. Acute encephalopathy with fever recent admission for the same 09/28/22-09/29/22 - workup at that time including LP, brain CT negative, seen by ID and no infectious source identified. Has had previous similar admissions in 2020 and at [facility]. Thought to be secondary to complex migraines. Outpatient ambulatory EEG from February 2022 reportedly negative. Has been unable to tolerate MRI in the past. MRI pending seen by neurology, rec EEG, empiric acyclovir MRI pending sedating meds on hold (gabapentin) Hypothyroidism: continue synthroid Insulin-dependent diabetes mellitus. Reduce home basal insulin 50% from baseline (50 bid at baseline) SSI, POCs currently NPO until mental status improves mild transaminitis trend LFTs hold statin h/o migraine ubrelvy non formulary attending - dr. garay DVT prophylaxis: Lovenox Full code NPO until mentation improves Time Spent With Patient Time: Total time managing care of this patient today ____ minutes. Quality Stroke Does the patient have a stroke diagnosis?: No VTE Prior VTE?: No VTE Risk Level:: Medical - moderate - high VTE Device Contraindication: Treatment Not Indicated VTE Drug Contraindication: N/A - Med Ordered
[2022-10-01 12:40] VITALS: BMI 41.3
--- NOTE | 2022-10-01 13:23 | P.CNNE_ITS ---
History of Present Illness Data of Consult Service Date: 10/01/22 Primary Care Provider: Bhakti Rodgers MD HPI Reason for consult: Encephalopathy 72 years old woman who recently was admitted in hospital with acute delirium with fever but no obvious etiology was found. There was suspicion of UTI but not confirmed. It was thought that maybe it was migraine related. He was back in hospital with similar situation though not as severe. I was asked to see her. She was unable to provide any history. Review of Systems Review of Systems: Could not be done with her [facility] Past Medical History Medical History (Updated 10/01/22 @ 13:25 by Lorene Hanks MD) Complicated migraine Diabetes HLD (hyperlipidemia) HTN (hypertension) Hypothyroid Family History Family History Other Lung cancer Surgical History Surgical History H/O section Hx of cholecystectomy Social History Social History Household Members: Spouse Housing: House Do you presently have visiting nurse or other home services: No (just finished last week) Unable to assess alcohol history related to: Unable to respond and Refusing to respond Alcohol intake: former Patient Tobacco Use Status: Never used Tobacco e-Cigarette/Vaping Use: Never Used Second Hand Smoke Exposure: No Use of substances other than those prescribed or required for medical reasons: Refusing to respond Advance Directives: Yes Advance Directives on File: Yes Advance Directives Date on File: 09/28/22 Do you have thoughts of harming others: None Do you have a plan to hurt others: No Plan Recently lost weight without trying: Unsure Nutrition Risks: Difficulty chewing and Difficulty swallowing Patient : No service: No Current occupational status: retired Meds Allergies Allergy/AdvReac Type Severity Reaction Status Date / Time Iodinated Contrast Media Allergy Severe SEDATION,TA Verified 07/24/20 19:30 [IVP DYE] CHYCARDIA erythromycin base Allergy Unknown HIVES Verified 07/24/20 19:30 [ERYTHROMYCIN BASE] Active Medications: Current Medications Acetaminophen (Acetaminophen Supp 650 Mg Supp.Rect) 650 mg [place] Q6H PRN PRN Reason: Pain, Mild (Pain Scale 1-3) Aspirin (Aspirin Enteric Coated 81 Mg Tablet.) 81 mg PO DAILY [facility] Clonidine HCl (Clonidine Hcl 0.1 Mg Tablet) 0.1 mg PO BEDTIME [facility]; Protocol Enoxaparin Sodium (Enoxaparin Sodium 40 Mg/0.4 Ml Syringe) 40 mg SUBCUT 2200 [facility] Last Admin: 10/01/22 00:25 Dose: 40 mg Glucose (Glucose Gel 15 Gm Gel..Gram.) 15 gm PO Q15M PRN; Protocol PRN Reason: per Hypoglycemia Standing Ord. Dextrose (D10) 250 mls @ 750 mls/hr IV Q15M PRN; Protocol PRN Reason: per Hypoglycemia Standing Ord. Acyclovir Sodium 781.79 mg/ (Sodium Chloride) 115.6358 mls @ 115.636 mls/hr IV Q8H [facility] Insulin Glargine (Insulin Glargine,Hum.Rec.Anlog 100 Unit/Ml 10 Ml Vial) 25 unit SUBCUT BID [facility] Last Admin: 10/01/22 09:45 Dose: 25 unit Insulin Human Lispro (Insulin Lispro 100 Unit/Ml 3 Ml Vial) 0 unit SUBCUT Q6H [facility]; Protocol Last Admin: 10/01/22 12:38 Dose: 2 unit Levothyroxine Sodium (Levothyroxine Sodium 125 Mcg Tablet) 62.5 mcg PO Kenny@0600 [facility] Levothyroxine Sodium (Levothyroxine Sodium 125 Mcg Tablet) 125 mcg PO MoTuWeThFrSa@0600 [facility] Last Admin: 10/01/22 10:46 Dose: Not Given Melatonin (Melatonin 3 Mg Tablet) 6 mg PO BEDTIME PRN PRN Reason: Insomnia Ondansetron HCl (Ondansetron Hcl 4 Mg/2 Ml Vial) 4 mg IVPUSH Q8H PRN PRN Reason: Nausea and Vomiting Pharmacy Consult (Consult Rx Perform Med Rec) 1 each MISCELLANE ONCE PRN PRN Reason: Consult order Sodium Chloride (0.9 % Sodium Chloride Flush 3 Ml Syringe) 3 ml IVFLUSH QSHIFT [facility] Last Admin: 10/01/22 07:20 Dose: 3 ml Home Medications Medication Instructions Recorded Confirmed Last Taken Type blood sugar diagnostic (FreeStyle 09/28/22 09/28/22 Unknown History Lite Strips) clonidine HCl 0.1 mg tablet 0.1 mg PO BEDTIME 09/28/22 10/01/22 Unknown History gabapentin 300 mg capsule 300 mg PO BID 09/28/22 10/01/22 Unknown History gabapentin 300 mg capsule 600 mg PO BEDTIME 09/28/22 10/01/22 Unknown History (Neurontin) insulin glargine 100 unit/mL (3 50 unit subcut BID 09/28/22 10/01/22 Unknown History mL) subcutaneous pen (Lantus Solostar U-100 Insulin) insulin lispro 100 unit/mL See Rx Instructions .Route .COMPLEX 09/28/22 10/01/22 Unknown History subcutaneous pen levothyroxine 125 mcg tablet 125 mcg PO MOTUWETHFRSA 09/28/22 10/01/22 Unknown History pen needle, diabetic 32 gauge x 09/28/22 09/28/22 Unknown History 1/4 (BD Ultra-Fine Micro Pen Needle) simvastatin 20 mg tablet 20 mg PO BEDTIME 09/28/22 10/01/22 Unknown History ubrogepant 100 mg tablet (Ubrelvy) 100 mg PO DIRECTED 09/28/22 10/01/22 Unknown History aspirin 81 mg tablet,delayed 81 mg PO DAILY 10/01/22 10/01/22 Unknown History release cholecalciferol (vitamin D3) 25 25 mcg PO DAILY 10/01/22 10/01/22 Unknown History mcg (1,000 unit) tablet levothyroxine 125 mcg tablet 62.5 mcg PO KENNY 10/01/22 10/01/22 Unknown History melatonin 10 mg tablet 10 mg PO BEDTIME 10/01/22 10/01/22 Unknown History Physical Exam Vital Signs: Vital Signs: Last Vital Signs Temp 97.1 F 10/01/22 11:39 Pulse 74 10/01/22 11:39 Resp 16 10/01/22 11:39 BP 169/72 H 10/01/22 11:39 Pulse Ox 96 10/01/22 11:39 O2 Del Method Room Air 10/01/22 11:39 BMI result Body Mass Index 41.3 Neuro: Other: She was quite drowsy but I was able to wake her up. She made eye contact but did not speak and did not follow any commands. Nursing stated that she has not been speaking. Face seems symmetrical. There was no focal weakness. She was resistant to exam. Deep tendon reflexes are absent. Plantars were withdrawing. Results Labs 10/01/22 05:42 10/01/22 05:42 Labs: Short CBC 09/30/22 10/01/22 Range/Units 20:31 05:42 WBC 14.1 H 9.8 (4.8-10.8) X10*3/uL Hgb 12.4 12.4 (12.0-16.0) g/dl Hct 36.5 L 36.0 L (37.0-47.0) % Plt Count 318 D 313 (160-400) X10*3/uL BMP 09/30/22 10/01/22 20:31 05:42 Sodium 142 140 Potassium 4.1 4.3 Chloride 107 107 Carbon Dioxide 25 23 BUN 24 H 22 H Creatinine 1.08 1.00 Calcium 8.8 8.7 Liver Function 09/30/22 Range/Units 20:31 Total Bilirubin 1.5 H (0.0-1.0) mg/dL AST 53 H (5-31) U/L ALT 50 H (0-31) U/L Alkaline Phosphatase 103 (39-117) U/L Albumin 3.7 (3.5-5.0) g/dL Head CT did not reveal any significant abnormality. Recently done lumbar puncture revealed slightly high CSF protein with 5 wbc's. Assessment and Plan (1) Encephalitis: Status: Acute 72 years old woman who has clinical picture was suggestive of encephalitis, somewhat atypical. There was quite significant change in mental status with delirium when aphasia, fever with no obvious infection or explanation, and slightly high CSF protein and 5 wbc's. Meningoencephalitis panel was negative. Despite that, most likely etiology was atypical encephalitis. My recommendation is to cover her for herpes encephalitis and Lyme encephalitis for now and obtain appropriate test to rule out Lyme and similar etiologies. As far as herpes encephalitis is concerned, I would recommend an EEG. In small percentage of patients, and CSF could be in falsely normal in early stages of herpes encephalitis. Time Spent With Patient Time: Total time managing care of this patient today ____ minutes. Procedures Date of Service Date of Service: 10/01/22
[2022-10-01 15:41] VITALS: BP 147/65; PULSE 70; RESP 18; TEMP 36.2; O2SAT 97
[2022-10-01] MEDS: cefTRIAXone sodium 2 GM in 0.9 % Sodium Chloride 50 ML IV (17:04)
[2022-10-01 17:26] LABS: Glucose, Whole Blood 178 mg/dL (60-115)
[2022-10-01 19:33] VITALS: BP 164/70; PULSE 65; RESP 18; TEMP 36.7; O2SAT 97
[2022-10-01 20:39] LABS: Glucose, Whole Blood 145 mg/dL (60-115)
[2022-10-01] MEDS: cloNIDine HCL 0.1 MG TABLET PO (21:35)
[2022-10-02 04:00] VITALS: BP 133/60; PULSE 65; RESP 16; TEMP 36.1; O2SAT 97
[2022-10-02 06:43] LABS: Hematocrit 35.3 % (37.0-47.0); Mean Corpuscular Volume 88.3 fL (80.0-98.0); Mean Platelet Volume 11.9 fL (9.4-12.3); Platelet Count 341 X10*3/uL (160-400); Red Cell Distribution Width 12.1 % (11.0-16.0); White Blood Count 13.3 X10*3/uL (4.8-10.8)
[2022-10-02 07:23] LABS: Alanine Aminotransferase 38 U/L (0-31); Albumin Level 3.7 g/dL (3.5-5.0); Alkaline Phosphatase 91 U/L (39-117); Anion Gap 14 (12-20); Aspartate Amino Transferase 32 U/L (5-31); Bilirubin Direct 0.6 mg/dL (0.0-0.5); Bilirubin Total 2.5 mg/dL (0.0-1.0); Blood Urea Nitrogen 24 mg/dL (9-16); Calcium 8.9 mg/dL (8.4-10.2); Carbon Dioxide 24 mmol/L (22-29); Chloride 107 mmol/L (96-108); Creatinine Clr Calc Pharmacy 66.5; Estimated Glomerular Filt Rate 58; Glucose Random 91 mg/dL (60-115); Potassium 3.9 mmol/L (3.3-5.1); Sodium 141 mmol/L (135-145); Total Protein 6.5 g/dL (6.5-8.0)
[2022-10-02 07:34] VITALS: BP 149/65; PULSE 68; RESP 17; TEMP 36; O2SAT 96
[2022-10-02 07:43] LABS: Glucose, Whole Blood 99 mg/dL (60-115)
[2022-10-02] MEDS: 0.9 % Sodium Chloride Flush 3 ML SYRINGE IVFLUSH ×3 (09:11→19:51)
[2022-10-02 11:36] LABS: Glucose, Whole Blood 117 mg/dL (60-115)
--- NOTE | 2022-10-02 12:46 | HO.PM.IMPN ---
Subjective Subjective Date of Service: 10/02/22 Interval History: seen and examined this morning Follow-up for encephalopathy Patient awake, alert and talking, following commands although still confused denies any specific complaints, difficult to obtain full ROS Neurologic Neurologic: Reports confusion Psychiatric Psychiatric: Reports confusion Physical Exam Vital Signs: Vital Signs: Last Vital Signs Temp 96.8 F 10/02/22 07:34 Pulse 68 10/02/22 07:34 Resp 17 10/02/22 07:34 BP 149/65 H 10/02/22 07:34 Pulse Ox 96 10/02/22 07:34 O2 Del Method Room Air 10/02/22 07:34 BMI result Body Mass Index 41.3 Const: General: comfortable, no acute distress, alert, awake and confusion Nutritional Appearance: overweight Orientation/consciousness: oriented to person and confusion Resp: Effort & Inspection: normal respiratory effort, no respiratory distress and no use of accessory muscles Auscultation: clear to auscultation bilaterally Cardio: Rate: regular rate Heart sounds: S1 normal heart sound present and S2 normal heart sound present GI: Inspection: No distended Palpation (GI): Soft to palpation Neuro: Other: no focal deficits appreciated General: oriented to person, moves all extremities and confusion Extrem: General: Yes no pedal edema Objective Data Active Medications Acetaminophen (Acetaminophen Supp 650 Mg Supp.Rect) 650 mg [place] Q6H PRN PRN Reason: Pain, Mild (Pain Scale 1-3) Aspirin (Aspirin Enteric Coated 81 Mg Tablet.Dr) 81 mg PO DAILY [facility] Last Admin: 10/02/22 10:17 Dose: Not Given Documented By: LISA Non-Admin Reason: awaiting speech and swallow Clonidine HCl (Clonidine Hcl 0.1 Mg Tablet) 0.1 mg PO BEDTIME [facility]; Protocol Last Admin: 10/01/22 21:35 Dose: 0.1 mg Documented By: REMY Enoxaparin Sodium (Enoxaparin Sodium 40 Mg/0.4 Ml Syringe) 40 mg SUBCUT 2200 [facility] Last Admin: 10/01/22 21:35 Dose: 40 mg Documented By: REMY Glucose (Glucose Gel 15 Gm Gel..Gram.) 15 gm PO Q15M PRN; Protocol PRN Reason: per Hypoglycemia Standing Ord. Dextrose (D10) 250 mls @ 750 mls/hr IV Q15M PRN; Protocol PRN Reason: per Hypoglycemia Standing Ord. Ceftriaxone Sodium 2 gm/ (Sodium Chloride) 50 mls @ 100 mls/hr IV Q24H [facility] Last Infusion: 10/01/22 17:37 Dose: 0 mls/hr Documented By: LINDA Acyclovir Sodium 765 mg/ (Sodium Chloride) 265.3 mls @ 265.3 mls/hr IV Q8H [facility] Last Infusion: 10/02/22 10:17 Dose: 0 mls/hr Documented By: LISA Insulin Glargine (Insulin Glargine,Hum.Rec.Anlog 100 Unit/Ml 10 Ml Vial) 25 unit SUBCUT BID [facility] Last Admin: 10/02/22 09:07 Dose: Not Given Documented By: LISA Non-Admin Reason: Nursing judgment Insulin Human Lispro (Insulin Lispro 100 Unit/Ml 3 Ml Vial) 0 unit SUBCUT Q6H [facility]; Protocol Last Admin: 10/02/22 11:41 Dose: Not Given Documented By: LISA Non-Admin Reason: No Insulin Coverage Levothyroxine Sodium (Levothyroxine Sodium 125 Mcg Tablet) 62.5 mcg PO Bess@0600 [facility] Levothyroxine Sodium (Levothyroxine Sodium 125 Mcg Tablet) 125 mcg PO MoTuWeThFrSa@0600 [facility] Last Admin: 10/02/22 05:32 Dose: Not Given Documented By: REMY Non-Admin Reason: Patient Refused Melatonin (Melatonin 3 Mg Tablet) 6 mg PO BEDTIME PRN PRN Reason: Insomnia Ondansetron HCl (Ondansetron Hcl 4 Mg/2 Ml Vial) 4 mg IVPUSH Q8H PRN PRN Reason: Nausea and Vomiting Pharmacy Consult (Consult Rx Perform Med Rec) 1 each MISCELLANE ONCE PRN PRN Reason: Consult order Sodium Chloride (0.9 % Sodium Chloride Flush 3 Ml Syringe) 3 ml IVFLUSH QSHIFT [facility] Last Admin: 10/02/22 09:11 Dose: 3 ml Documented By: LISA Labs 10/02/22 05:34 10/02/22 05:34 Labs: Laboratory Results - last 24 hr 10/01/22 10/01/22 10/02/22 16:36 20:32 05:34 MCV 88.3 MCH 30.0 MCHC 34.0 RDW 12.1 Plt Count 341 MPV 11.9 Absolute Nucleated RBC 0.000 Nucleated RBC % (auto) 0.0 Anion Gap Estim Creat Clear Calc Estimated GFR POC Glucose 178 H 145 H Random Glucose Calcium Total Bilirubin Direct Bilirubin AST ALT Alkaline Phosphatase Total Protein Albumin 10/02/22 10/02/22 10/02/22 05:34 07:33 11:33 MCV MCH MCHC RDW Plt Count MPV Absolute Nucleated RBC Nucleated RBC % (auto) Anion Gap 14 Estim Creat Clear Calc 66.5 Estimated GFR 58 POC Glucose 99 117 H Random Glucose 91 Calcium 8.9 Total Bilirubin 2.5 H Direct Bilirubin 0.6 H AST 32 H ALT 38 H Alkaline Phosphatase 91 Total Protein 6.5 Albumin 3.7 Assessment and Plan (1) Encephalitis: Status: Acute (2) Acute metabolic encephalopathy: Status: Acute Plan This is a 72-year-old female with pertinent history of complex migraine, hypothyroidism, insulin-dependent diabetes mellitus who was brought to the emergency department by her for evaluation of altered mentation. Acute encephalopathy with fever. improving, awake and talking today, following commandsbut remains confused recent admission for the same 09/28/22-09/29/22 - workup at that time including LP, brain CT negative, seen by ID and no infectious source identified. Has had previous similar admissions in 2020 and at [facility] and [facility]. Initially thought to be secondary to complex migraines. Outpatient ambulatory EEG from February 2022 reportedly negative MRI negative for acute pathology EEG negative for seizure activity seen by neurology, possible encephalitis empiric acyclovir and cover for lyme - started on acyclovir and IV ceftriaxone 10/01 sedating meds on hold (gabapentin) blood cultures negative Hypothyroidism: continue synthroid Insulin-dependent diabetes mellitus. Reduce home basal insulin 50% from baseline (50 bid at baseline) SSI, POCs seen by speech cleared for diet, recommend aspiration precautions, one-to-one with feeds mild transaminitis trend LFTs hold statin h/o migraine ubrelvy non formulary attending - dr. garay DVT prophylaxis: Lovenox Full code discussed with at bedside - reports numerous similar episodes in the past although unclear if associated with fever. Records from [facility] with no documented fever. Records from [facility] requested. patient requires ongoing inpatient hospitalization for management of acute encephalopathy dispo - may need PT eval prior to d/c Time Spent With Patient Time: Total time managing care of this patient today ____ minutes. Quality Stroke Does the patient have a stroke diagnosis?: No VTE Prior VTE?: No VTE Risk Level:: Medical - moderate - high VTE Device Contraindication: Treatment Not Indicated VTE Drug Contraindication: N/A - Med Ordered
--- NOTE | 2022-10-02 14:14 | MHC.SL.SWA ---
Speech Pathologist Impression: Risk of aspiration d/t confusion Risk of Aspiration Due to: Reduced Cognition Dysphasia Diet Status: UPGRADE from NPO to regular/thin w/ crushed pills Liquid Consistency and Strategies for Safe Swallow: Liquid Intake Recommendation: Thin Liquid Intake Strategies: Small Sips Solid Food Consistency: Dietary Recommendations: Regular Additional Modifications to Solid Foods: No overt s/s of aspiration w/ PO trials. Pt managed dry regular solid well, mild oral residue cleared with subsequent swallow. Pt does require 1:1 assistance feeding d/t level of confusion. PER DIEM PHYSICAL THERAPIST ASSISTANT to f/u 1x. Oral Medication Intake: Crushed with Puree Please contact the pharmacy regarding appropriate crushable or liquid drug formulations that are available whenever modified delivery is recommended. Compensatory Strategies and Precautions to be Taken for Safe Swallow: Sitting Upright (90 deg) Small Bites and Sips Alternate Liquids/Solids Rate of Ingestion Change Oral Check Supervision While Eating and Drinking for Safe Swallow: Total Assistance (1:1) Swallowing Recommended Treatments: Compens. Strategy Educat. Recommendation for Speech: Inpatient Speech Therapy Comment: 1 f/u Flask Cleaner Clinican/Clinical Fellow: No Supervisory Statement: I have reviewed and agree with the student/clinical fellow's documentation: N/A Speech Language Pathologist: Vania Taylor M.A., CCC-PER DIEM PHYSICAL THERAPIST ASSISTANT
--- NOTE | 2022-10-02 14:54 | MHC.CM.PN ---
PATIENT ALERT TO SELF. SHE IS PARTICIPATING IN CONVERSATION BUT ANSWERS ARE NOT RELATED TO QUESTIONS MESSAGE LEFT FOR SPOUSE, BETO @ [phone] TO CALL BACK. PATIENT ACTIVE WITH [facility] PLAN FOR DC BY WEDNESDAY 10/04
--- NOTE | 2022-10-02 15:11 | MHC.CM.PN ---
Addendum entered by Yani Greer RN 10/02/22 15:49: RAMA STEWART IS FOLLOWING. WILL NEED P.T. EVAL. PROVIDER AWARE Addendum entered by Yani Greer RN 10/02/22 15:38: SPOUSE HAS CONCERNS OF NOT BEING ABLE TO MANAGE PATIENT AT HOME. HE IS AWARE OF POTENTIAL BARRIERS TO PLACEMENT REFERRAL PLACED TO [facility] TO INQUIRE. SPOUSE OT ASK FOR ASSISTANT LABORATORY DIRECTOR ON WEDNESDAY TO SEE IF PLAN HAS PROGRESSED [facility] ALSO MADE AWARE OF POTENTIAL DC FOR WEDNESDAY Original Note: SPOUSE, BETO, . NOW AWARE OF POTENTIAL DC FOR WEDNESDAY EDWARDS EXPLAINED AND LEFT IN ROOM FOR SPOUSE.
[2022-10-02 15:38] VITALS: BP 145/67; PULSE 71; RESP 18; TEMP 36.6; O2SAT 97
[2022-10-02] MEDS: cefTRIAXone sodium 2 GM in 0.9 % Sodium Chloride 50 ML IV (16:04)
[2022-10-02 16:26] LABS: Glucose, Whole Blood 170 mg/dL (60-115)
[2022-10-02] MEDS: Insulin Lispro 100 UNIT/ML 3 ML VIAL SUBCUT ×2 (17:42→21:20)
[2022-10-02 19:28] VITALS: BP 119/55; PULSE 74; RESP 17; TEMP 36.6; O2SAT 97
[2022-10-02 20:25] LABS: Glucose, Whole Blood 221 mg/dL (60-115)
[2022-10-02] MEDS: cloNIDine HCL 0.1 MG TABLET PO (21:18)
[2022-10-02] MEDS: Enoxaparin Sodium 40 MG/0.4 ML SYRINGE SUBCUT (21:18)
[2022-10-02] MEDS: Insulin Glargine,Hum.rec.anlog 100 UNIT/ML 10 ML VIAL 25 UNIT SUBCUT (21:19)
[2022-10-03 03:39] VITALS: BP 147/65; PULSE 71; RESP 18; TEMP 36.2; O2SAT 97
[2022-10-03] MEDS: Levothyroxine Sodium 125 MCG TABLET PO (05:17)
[2022-10-03 06:20] LABS: Hematocrit 36.4 % (37.0-47.0); Hemoglobin 12.1 g/dl (12.0-16.0); Mean Corpuscular HGB Conc 33.2 g/dl (31.0-35.0); Mean Corpuscular Hemoglobin 29.8 pg (27.0-33.0); Mean Corpuscular Volume 89.7 fL (80.0-98.0); Mean Platelet Volume 11.5 fL (9.4-12.3); Platelet Count 309 X10*3/uL (160-400); Red Blood Count 4.06 X10*6/uL (4.20-5.50); Red Cell Distribution Width 12.5 % (11.0-16.0); White Blood Count 12.6 X10*3/uL (4.8-10.8)
[2022-10-03 06:32] LABS: Alanine Aminotransferase 36 U/L (0-31); Albumin Level 3.5 g/dL (3.5-5.0); Alkaline Phosphatase 93 U/L (39-117); Aspartate Amino Transferase 26 U/L (5-31); Bilirubin Direct 0.3 mg/dL (0.0-0.5); Bilirubin Total 1.7 mg/dL (0.0-1.0); Total Protein 6.2 g/dL (6.5-8.0)
[2022-10-03 07:18] VITALS: BP 146/68; PULSE 76; RESP 18; TEMP 36.6; O2SAT 98
[2022-10-03 07:25] LABS: Glucose, Whole Blood 154 mg/dL (60-115)
--- NOTE | 2022-10-03 07:54 | HO.PM.IMPN ---
Subjective Subjective Date of Service: 10/03/22 Interval History: seen and examined this morning Follow-up for encephalopathy Patient awake, alert and talking, following commands although still confused denies any specific complaints, difficult to obtain full ROS Neurologic Neurologic: Reports confusion Psychiatric Psychiatric: Reports confusion Physical Exam Vital Signs: Vital Signs: Last Vital Signs Temp 97.8 F 10/03/22 07:18 Pulse 76 10/03/22 07:18 Resp 18 10/03/22 07:18 BP 146/68 H 10/03/22 07:18 Pulse Ox 98 10/03/22 07:18 O2 Del Method Room Air 10/03/22 07:18 BMI result Body Mass Index 41.3 Appearing in no acute distress lung sounds are clear to auscultation heart regular rate rhythm, clear S1, S2 positive bowel sounds, abdomen is soft, nontender neuro patient is alert x3, no focal deficits Const: General: confusion Orientation/consciousness: confusion Neuro: General: confusion Objective Data Active Medications Acetaminophen (Acetaminophen Supp 650 Mg Supp.Rect) 650 mg [place] Q6H PRN PRN Reason: Pain, Mild (Pain Scale 1-3) Aspirin (Aspirin Enteric Coated 81 Mg Tablet.Dr) 81 mg PO DAILY [facility] Last Admin: 10/02/22 10:17 Dose: Not Given Documented By: LISA Non-Admin Reason: awaiting speech and swallow Clonidine HCl (Clonidine Hcl 0.1 Mg Tablet) 0.1 mg PO BEDTIME [facility]; Protocol Last Admin: 10/02/22 21:18 Dose: 0.1 mg Documented By: AFSHAN Enoxaparin Sodium (Enoxaparin Sodium 40 Mg/0.4 Ml Syringe) 40 mg SUBCUT 2200 [facility] Last Admin: 10/02/22 21:18 Dose: 40 mg Documented By: AFSHAN Glucose (Glucose Gel 15 Gm Gel..Gram.) 15 gm PO Q15M PRN; Protocol PRN Reason: per Hypoglycemia Standing Ord. Dextrose (D10) 250 mls @ 750 mls/hr IV Q15M PRN; Protocol PRN Reason: per Hypoglycemia Standing Ord. Ceftriaxone Sodium 2 gm/ (Sodium Chloride) 50 mls @ 100 mls/hr IV Q24H [facility] Last Infusion: 10/02/22 16:35 Dose: 0 mls/hr Documented By: LISA Acyclovir Sodium 765 mg/ (Sodium Chloride) 265.3 mls @ 265.3 mls/hr IV Q8H [facility] Last Infusion: 10/03/22 02:28 Dose: 0 mls/hr Documented By: AFSHAN Insulin Glargine (Insulin Glargine,Hum.Rec.Anlog 100 Unit/Ml 10 Ml Vial) 25 unit SUBCUT BID [facility] Last Admin: 10/02/22 21:19 Dose: 25 unit Documented By: AFSHAN Insulin Human Lispro (Insulin Lispro 100 Unit/Ml 3 Ml Vial) 0 unit SUBCUT Q6H [facility]; Protocol Last Admin: 10/03/22 05:11 Dose: Not Given Documented By: AFSHAN Non-Admin Reason: not given due at 0730 Levothyroxine Sodium (Levothyroxine Sodium 125 Mcg Tablet) 62.5 mcg PO Bess@0600 [facility] Levothyroxine Sodium (Levothyroxine Sodium 125 Mcg Tablet) 125 mcg PO MoTuWeThFrSa@0600 [facility] Last Admin: 10/03/22 05:17 Dose: 125 mcg Documented By: AFSHAN Melatonin (Melatonin 3 Mg Tablet) 6 mg PO BEDTIME PRN PRN Reason: Insomnia Ondansetron HCl (Ondansetron Hcl 4 Mg/2 Ml Vial) 4 mg IVPUSH Q8H PRN PRN Reason: Nausea and Vomiting Pharmacy Consult (Consult Rx Perform Med Rec) 1 each MISCELLANE ONCE PRN PRN Reason: Consult order Sodium Chloride (0.9 % Sodium Chloride Flush 3 Ml Syringe) 3 ml IVFLUSH QSHIFT [facility] Last Admin: 10/02/22 19:51 Dose: 3 ml Documented By: AFSHAN Labs 10/03/22 05:58 10/02/22 05:34 Labs: Laboratory Results - last 24 hr 10/02/22 10/02/22 10/02/22 11:33 16:20 20:14 MCV MCH MCHC RDW Plt Count MPV Absolute Nucleated RBC Nucleated RBC % (auto) POC Glucose 117 H 170 H 221 H Total Bilirubin Direct Bilirubin AST ALT Alkaline Phosphatase Total Protein Albumin 10/03/22 10/03/22 10/03/22 05:58 05:58 07:16 MCV 89.7 MCH 29.8 MCHC 33.2 RDW 12.5 Plt Count 309 MPV 11.5 Absolute Nucleated RBC 0.000 Nucleated RBC % (auto) 0.0 POC Glucose 154 H Total Bilirubin 1.7 H Direct Bilirubin 0.3 AST 26 ALT 36 H Alkaline Phosphatase 93 Total Protein 6.2 L Albumin 3.5 Assessment and Plan (1) Encephalitis: Status: Acute Plan 72-year-old female with pertinent history of complex migraine, hypothyroidism, insulin-dependent diabetes mellitus who was brought to the emergency department by her for evaluation of altered mentation.? Acute encephalopathy with fever. improving, awake and talking today, following commands but remains confused recent admission for the same 09/28/22-09/29/22 - ? workup at that time including LP, brain CT negative, seen by ID and no infectious source identified.? Has had previous similar admissions in 2020 and at [facility] and [facility].? Initially thought to be secondary to complex migraines.? Outpatient ambulatory EEG from February 2022 reportedly negative MRI? negative for acute pathology EEG negative for seizure activity seen by neurology,? possible encephalitis> empiric acyclovir and cover for lyme -? started on acyclovir and IV ceftriaxone 10/01 sedating meds on hold (gabapentin) blood cultures negative Hypothyroidism: continue synthroid Insulin-dependent diabetes mellitus. SSI, ADA diet mild transaminitis trend LFTs hold statin h/o migraine ubrelvy non formulary attending - dr. Baeza DVT prophylaxis: Lovenox Full code discussed with at bedside -? reports numerous similar episodes in the past although unclear if associated with fever.? Records from [facility] with no documented fever.? Records from [facility] requested. patient requires ongoing inpatient hospitalization for management of acute encephalopathy Time Spent With Patient Time: Total time managing care of this patient today ____ minutes. Quality Stroke Does the patient have a stroke diagnosis?: No VTE Prior VTE?: No VTE Risk Level:: Medical - moderate - high VTE Device Contraindication: Treatment Not Indicated VTE Drug Contraindication: N/A - Med Ordered
[2022-10-03] MEDS: Insulin Lispro 100 UNIT/ML 3 ML VIAL SUBCUT ×3 (08:27→21:13)
[2022-10-03] MEDS: Aspirin Enteric Coated 81 MG TABLET.DR PO (08:28)
[2022-10-03] MEDS: 0.9 % Sodium Chloride Flush 3 ML SYRINGE IVFLUSH ×2 (08:28→15:29)
[2022-10-03] MEDS: Insulin Glargine,Hum.rec.anlog 100 UNIT/ML 10 ML VIAL 25 UNIT SUBCUT ×2 (08:28→21:12)
[2022-10-03 09:00] VITALS: BP 146/68; PULSE 76; O2SAT 98
[2022-10-03 11:27] LABS: Glucose, Whole Blood 278 mg/dL (60-115)
--- NOTE | 2022-10-03 14:39 | MHC.CM.PN ---
CM MET WITH PTS WHO REPORTS HE IS HOPING THE PT CAN GO TO STR HE IS WORRIED ABOUT BEING ABLE TO ASSIST HER AT HOME HE IS AWARE PT HAD A PT EVAL TODAY AND BOTH RAMA STEWART AND BALJIT FORTUNE ARE FOLLOWING, HOWEVER INSURANCE AUTH CANNOT BE OBTAINED BEFORE WEDNESDAY DUE TO THE HOLIDAY PT IS NOW INPATIENT, IMM DELIVERED
[2022-10-03] MEDS: cefTRIAXone sodium 2 GM in 0.9 % Sodium Chloride 50 ML IV (15:29)
[2022-10-03 15:43] VITALS: BP 163/88; PULSE 71; RESP 18; TEMP 36.3; O2SAT 98
[2022-10-03 16:16] LABS: Glucose, Whole Blood 177 mg/dL (60-115)
[2022-10-03 19:32] VITALS: BP 140/99; PULSE 81; RESP 17; TEMP 36.2; O2SAT 96
[2022-10-03 20:55] LABS: Glucose, Whole Blood 159 mg/dL (60-115)
[2022-10-03] MEDS: cloNIDine HCL 0.1 MG TABLET PO (21:11)
[2022-10-03] MEDS: Enoxaparin Sodium 40 MG/0.4 ML SYRINGE SUBCUT (21:12)
[2022-10-03 21:20] VITALS: BP 142/84
[2022-10-04] MEDS: 0.9 % Sodium Chloride Flush 3 ML SYRINGE IVFLUSH ×3 (01:03→15:49)
[2022-10-04 03:35] VITALS: BP 170/77; PULSE 76; RESP 17; TEMP 36.4; O2SAT 95
[2022-10-04] MEDS: Levothyroxine Sodium 125 MCG TABLET 62.5 MCG PO (06:36)
[2022-10-04 07:29] VITALS: BP 134/69; PULSE 77; RESP 18; TEMP 36.8; O2SAT 95
[2022-10-04 07:34] LABS: Glucose, Whole Blood 131 mg/dL (60-115)
[2022-10-04] MEDS: Aspirin Enteric Coated 81 MG TABLET.DR PO (07:41)
[2022-10-04] MEDS: Insulin Glargine,Hum.rec.anlog 100 UNIT/ML 10 ML VIAL 25 UNIT SUBCUT ×2 (07:42→20:57)
--- NOTE | 2022-10-04 08:43 | MHC.CM.PN ---
PER PTS , HE IS CONCERNED ABOUT HIS ABILITY TO KEEP PT SAFE AT HOME AND IS HOPING SHE CAN GO TO STR REFERRALS MADE RAMA STEWART AND BALJIT FORTUNE ARE FOLLOWING PENDING SUPPORTIVE PT EVAL AND INSURANCE AUTH PT WAS SEEN BY PT YESTERDAY, HOWEVER PT WAS UNABLE TO FOLLOW COMMANDS CONSISTENTLY AN UPDATED PT EVAL WILL BE UPLOADED FOR REVIEW ONCE AVAILABLE
--- NOTE | 2022-10-04 11:19 | P.PNIM_ITS ---
Subjective Subjective Date of Service: 10/04/22 Interval History: seen and examined this morning Follow-up for encephalopathy Patient awake, alert and talking, following commands although still confused denies any specific complaints, difficult to obtain full ROS Neurologic Neurologic: Reports confusion Psychiatric Psychiatric: Reports confusion Physical Exam Vital Signs: Vital Signs: Last Vital Signs Temp 98.2 F 10/04/22 07:29 Pulse 77 10/04/22 07:29 Resp 18 10/04/22 07:29 BP 134/69 10/04/22 07:29 Pulse Ox 95 10/04/22 07:29 O2 Del Method Room Air 10/04/22 07:29 BMI result Body Mass Index 41.3 Appearing in no acute distress lung sounds are clear to auscultation heart regular rate rhythm, clear S1, S2 positive bowel sounds, abdomen is soft, nontender neuro patient is alert x3, no focal deficits Const: General: confusion Orientation/consciousness: confusion Neuro: General: confusion Objective Data Active Medications Acetaminophen (Acetaminophen Supp 650 Mg Supp.Rect) 650 mg [place] Q6H PRN PRN Reason: Pain, Mild (Pain Scale 1-3) Aspirin (Aspirin Enteric Coated 81 Mg Tablet.Dr) 81 mg PO DAILY [facility] Last Admin: 10/04/22 07:41 Dose: 81 mg Documented By: LISA Clonidine HCl (Clonidine Hcl 0.1 Mg Tablet) 0.1 mg PO BEDTIME [facility]; Protocol Last Admin: 10/03/22 21:11 Dose: 0.1 mg Documented By: LAURY Enoxaparin Sodium (Enoxaparin Sodium 40 Mg/0.4 Ml Syringe) 40 mg SUBCUT 2200 [facility] Last Admin: 10/03/22 21:12 Dose: 40 mg Documented By: LAURY Glucose (Glucose Gel 15 Gm Gel..Gram.) 15 gm PO Q15M PRN; Protocol PRN Reason: per Hypoglycemia Standing Ord. Glucose (Glucose Gel 15 Gm Gel..Gram.) 15 gm PO Q15M PRN; Protocol PRN Reason: per Hypoglycemia Standing Ord. Dextrose (D10) 250 mls @ 750 mls/hr IV Q15M PRN; Protocol PRN Reason: per Hypoglycemia Standing Ord. Ceftriaxone Sodium 2 gm/ (Sodium Chloride) 50 mls @ 100 mls/hr IV Q24H [facility] Last Infusion: 10/03/22 16:21 Dose: 0 mls/hr Documented By: LISA Acyclovir Sodium 765 mg/ (Sodium Chloride) 265.3 mls @ 265.3 mls/hr IV Q8H [facility] Last Infusion: 10/04/22 09:52 Dose: 0 mls/hr Documented By: LISA Dextrose (D10) 250 mls @ 750 mls/hr IV Q15M PRN; Protocol PRN Reason: per Hypoglycemia Standing Ord. Insulin Glargine (Insulin Glargine,Hum.Rec.Anlog 100 Unit/Ml 10 Ml Vial) 25 unit SUBCUT BID [facility] Last Admin: 10/04/22 07:42 Dose: 25 unit Documented By: LISA Insulin Human Lispro (Insulin Lispro 100 Unit/Ml 3 Ml Vial) 0 unit SUBCUT QIDACHS [facility]; Protocol Last Admin: 10/04/22 07:35 Dose: Not Given Documented By: LISA Non-Admin Reason: No Insulin Coverage Levothyroxine Sodium (Levothyroxine Sodium 125 Mcg Tablet) 62.5 mcg PO Bess@0600 [facility] Last Admin: 10/04/22 06:36 Dose: 62.5 mcg Documented By: RAO Levothyroxine Sodium (Levothyroxine Sodium 125 Mcg Tablet) 125 mcg PO MoTuWeThF rSa@0600 [facility] Last Admin: 10/03/22 05:17 Dose: 125 mcg Documented By: AFSHAN Melatonin (Melatonin 3 Mg Tablet) 6 mg PO BEDTIME PRN PRN Reason: Insomnia Ondansetron HCl (Ondansetron Hcl 4 Mg/2 Ml Vial) 4 mg IVPUSH Q8H PRN PRN Reason: Nausea and Vomiting Pharmacy Consult (Consult Rx Perform Med Rec) 1 each MISCELLANE ONCE PRN PRN Reason: Consult order Sodium Chloride (0.9 % Sodium Chloride Flush 3 Ml Syringe) 3 ml IVFLUSH QSHIFT [facility] Last Admin: 10/04/22 07:42 Dose: 3 ml Documented By: LISA Labs 10/03/22 05:58 10/02/22 05:34 Labs: Laboratory Results - last 24 hr 10/03/22 10/03/22 10/03/22 11:23 16:02 20:48 POC Glucose 278 H 177 H 159 H 10/04/22 07:28 POC Glucose 131 H Assessment and Plan (1) Encephalitis: Status: Acute Plan 72-year-old female with pertinent history of complex migraine, hypothyroidism, insulin-dependent diabetes mellitus who was brought to the emergency department by her for evaluation of altered mentation.? Acute encephalopathy with fever. improving, awake and talking today, following commands but remains confused recent admission for the same 09/28/22-09/29/22 - ? workup at that time including LP, brain CT negative, seen by ID and no infectious source identified.? Has had previous similar admissions in 2020 and at [facility] and [facility].? Initially thought to be secondary to complex migraines.? Outpatient ambulatory EEG from February 2022 reportedly negative MRI? negative for acute pathology EEG negative for seizure activity seen by neurology,? possible encephalitis> empiric acyclovir and cover for lyme -? started on acyclovir and IV ceftriaxone 10/01 sedating meds on hold (gabapentin) blood cultures negative Hypothyroidism continue synthroid Insulin-dependent diabetes mellitus. SSI, ADA diet mild transaminitis trend LFTs hold statin h/o migraine ubrelvy non formulary attending - dr. Baeza DVT prophylaxis: Lovenox Full code discussed with at bedside -? reports numerous similar episodes in the past although unclear if associated with fever.? Records from [facility] with no documented fever.? Records from [facility] requested. patient requires ongoing inpatient hospitalization for management of acute encephalopathy Time Spent With Patient Time: Total time managing care of this patient today ____ minutes. Quality Stroke Does the patient have a stroke diagnosis?: No VTE Prior VTE?: No VTE Risk Level:: Medical - moderate - high VTE Device Contraindication: Treatment Not Indicated VTE Drug Contraindication: N/A - Med Ordered
[2022-10-04 11:32] LABS: Glucose, Whole Blood 185 mg/dL (60-115)
[2022-10-04] MEDS: Insulin Lispro 100 UNIT/ML 3 ML VIAL SUBCUT ×2 (12:08→20:56)
[2022-10-04 15:31] VITALS: BP 177/80; PULSE 77; RESP 20; TEMP 36.5; O2SAT 96
[2022-10-04] MEDS: cefTRIAXone sodium 2 GM in 0.9 % Sodium Chloride 50 ML IV (15:43)
[2022-10-04 16:27] LABS: Glucose, Whole Blood 127 mg/dL (60-115)
[2022-10-04 19:52] VITALS: BP 140/58; PULSE 93; RESP 18; TEMP 36.2; O2SAT 97
[2022-10-04 20:34] LABS: Glucose, Whole Blood 268 mg/dL (60-115)
[2022-10-04] MEDS: Enoxaparin Sodium 40 MG/0.4 ML SYRINGE SUBCUT (20:56)
[2022-10-04] MEDS: cloNIDine HCL 0.1 MG TABLET PO (21:02)
[2022-10-05 04:00] VITALS: BP 149/83; PULSE 80; RESP 15; TEMP 36.2; O2SAT 95
[2022-10-05 07:33] VITALS: BP 150/69; PULSE 74; RESP 20; TEMP 36.4; O2SAT 98
[2022-10-05 07:48] LABS: Glucose, Whole Blood 126 mg/dL (60-115)
[2022-10-05] MEDS: Aspirin Enteric Coated 81 MG TABLET.DR PO (08:15)
[2022-10-05] MEDS: Insulin Glargine,Hum.rec.anlog 100 UNIT/ML 10 ML VIAL 25 UNIT SUBCUT ×2 (08:15→20:55)
--- NOTE | 2022-10-05 10:21 | P.PNIM_ITS ---
Subjective Subjective Date of Service: 10/05/22 Interval History: seen and examined this morning Follow-up for encephalopathy Patient awake, alert and talking, following commands although still confused denies any specific complaints, difficult to obtain full ROS Neurologic Neurologic: Reports confusion Psychiatric Psychiatric: Reports confusion Physical Exam Vital Signs: Vital Signs: Last Vital Signs Temp 97.6 F 10/05/22 07:33 Pulse 74 10/05/22 07:33 Resp 20 10/05/22 07:33 BP 150/69 H 10/05/22 07:33 Pulse Ox 98 10/05/22 07:33 O2 Del Method Room Air 10/05/22 07:33 BMI result Body Mass Index 41.3 Appearing in no acute distress lung sounds are clear to auscultation heart regular rate rhythm, clear S1, S2 positive bowel sounds, abdomen is soft, nontender neuro patient is alert x3, no focal deficits Const: General: confusion Orientation/consciousness: confusion Neuro: General: confusion Objective Data Active Medications Acetaminophen (Acetaminophen Supp 650 Mg Supp.Rect) 650 mg [place] Q6H PRN PRN Reason: Pain, Mild (Pain Scale 1-3) Aspirin (Aspirin Enteric Coated 81 Mg Tablet.Dr) 81 mg PO DAILY [facility] Last Admin: 10/05/22 08:15 Dose: 81 mg Documented By: COTEMA Clonidine HCl (Clonidine Hcl 0.1 Mg Tablet) 0.1 mg PO BEDTIME [facility]; Protocol Last Admin: 10/04/22 21:02 Dose: 0.1 mg Documented By: KASSANDRA Enoxaparin Sodium (Enoxaparin Sodium 40 Mg/0.4 Ml Syringe) 40 mg SUBCUT 2200 [facility] Last Admin: 10/04/22 20:56 Dose: 40 mg Documented By: KASSANDRA Glucose (Glucose Gel 15 Gm Gel..Gram.) 15 gm PO Q15M PRN; Protocol PRN Reason: per Hypoglycemia Standing Ord. Glucose (Glucose Gel 15 Gm Gel..Gram.) 15 gm PO Q15M PRN; Protocol PRN Reason: per Hypoglycemia Standing Ord. Dextrose (D10) 250 mls @ 750 mls/hr IV Q15M PRN; Protocol PRN Reason: per Hypoglycemia Standing Ord. Ceftriaxone Sodium 2 gm/ (Sodium Chloride) 50 mls @ 100 mls/hr IV Q24H [facility] Last Infusion: 10/04/22 16:30 Dose: 0 mls/hr Documented By: LISA Acyclovir Sodium 765 mg/ (Sodium Chloride) 265.3 mls @ 265.3 mls/hr IV Q8H [facility] Last Infusion: 10/05/22 02:41 Dose: 0 mls/hr Documented By: KASSANDRA Dextrose (D10) 250 mls @ 750 mls/hr IV Q15M PRN; Protocol PRN Reason: per Hypoglycemia Standing Ord. Insulin Glargine (Insulin Glargine,Hum.Rec.Anlog 100 Unit/Ml 10 Ml Vial) 25 unit SUBCUT BID [facility] Last Admin: 10/05/22 08:15 Dose: 25 unit Documented By: PETRONA Insulin Human Lispro (Insulin Lispro 100 Unit/Ml 3 Ml Vial) 0 unit SUBCUT QIDACHS [facility]; Protocol Last Admin: 10/05/22 07:51 Dose: Not Given Documented By: PETRONA Non-Admin Reason: No Insulin Coverage Levothyroxine Sodium (Levothyroxine Sodium 125 Mcg Tablet) 62.5 mcg PO Bess@0600 [facility] Last Admin: 10/04/22 06:36 Dose: 62.5 mcg Documented By: RAO Levothyroxine Sodium (Levothyroxine Sodium 125 Mcg Tablet) 125 mcg PO MoTuWeThFrSa@0600 [facility] Last Admin: 10/05/22 06:05 Dose: Not Given Documented By: KASSANDRA Non-Admin Reason: Patient Asleep Melatonin (Melatonin 3 Mg Tablet) 6 mg PO BEDTIME PRN PRN Reason: Insomnia Ondansetron HCl (Ondansetron Hcl 4 Mg/2 Ml Vial) 4 mg IVPUSH Q8H PRN PRN Reason: Nausea and Vomiting Pharmacy Consult (Consult Rx Perform Med Rec) 1 each MISCELLANE ONCE PRN PRN Reason: Consult order Sodium Chloride (0.9 % Sodium Chloride Flush 3 Ml Syringe) 3 ml IVFLUSH QSHIFT [facility] Last Admin: 10/05/22 08:15 Dose: Not Given Documented By: PETRONA Non-Admin Reason: No Access Labs 10/03/22 05:58 10/02/22 05:34 Labs: Laboratory Results - last 24 hr 10/04/22 10/04/22 10/04/22 11:27 16:23 20:31 POC Glucose 185 H 127 H 268 H 10/05/22 07:39 POC Glucose 126 H Assessment and Plan (1) Encephalitis: Status: Acute Plan 72-year-old female with pertinent history of complex migraine, hypothyroidism, insulin-dependent diabetes mellitus who was brought to the emergency department by her for evaluation of altered mentation.? Acute encephalopathy with fever. improving, awake and talking today, following commands but remains confused recent admission for the same 09/28/22-09/29/22 - ? workup at that time including LP, brain CT negative, seen by ID and no infectious source identified.? Has had previous similar admissions in 2020 and at [facility] and [facility].? Initially thought to be secondary to complex migraines.? Outpatient ambulatory EEG from February 2022 reportedly negative MRI? negative for acute pathology EEG negative for seizure activity seen by neurology,? possible encephalitis> empiric acyclovir and cover for lyme -? started on acyclovir and IV ceftriaxone 10/01 sedating meds on hold (gabapentin) blood cultures negative Hypothyroidism continue synthroid Insulin-dependent diabetes mellitus. SSI, ADA diet mild transaminitis trend LFTs hold statin h/o migraine ubrelvy non formulary attending - dr. Stock DVT prophylaxis: Lovenox Full code discussed with at bedside -? reports numerous similar episodes in the past although unclear if associated with fever.? Records from [facility] with no documented fever.? Records from [facility] requested. patient requires ongoing inpatient hospitalization for management of acute encephalopathy Time Spent With Patient Time: Total time managing care of this patient today ____ minutes. Quality Stroke Does the patient have a stroke diagnosis?: No VTE Prior VTE?: No VTE Risk Level:: Medical - moderate - high VTE Device Contraindication: Treatment Not Indicated VTE Drug Contraindication: N/A - Med Ordered
[2022-10-05 11:13] LABS: Glucose, Whole Blood 232 mg/dL (60-115)
[2022-10-05] MEDS: Insulin Lispro 100 UNIT/ML 3 ML VIAL SUBCUT ×2 (12:02→20:54)
--- NOTE | 2022-10-05 13:21 | MHC.SLORD ---
Speech Language Pathology Order Status: NUTRITION MANAGER visited pt shortly after she had finished lunch. Per RN, pt is tolerating current diet with no 1-1 assistance required. She reportedly ate breakfast okay and only ate soup and dessert of lunch tray. NUTRITION MANAGER offered other items on food and alternative PO; pt refused. Recommend 1 f/u.
[2022-10-05 15:30] VITALS: BP 153/77; PULSE 74; RESP 18; TEMP 36.2; O2SAT 95
[2022-10-05] MEDS: cefTRIAXone sodium 2 GM in 0.9 % Sodium Chloride 50 ML IV (16:03)
[2022-10-05] MEDS: 0.9 % Sodium Chloride Flush 3 ML SYRINGE IVFLUSH ×2 (16:03→20:56)
--- NOTE | 2022-10-05 16:06 | MHC.CM.PN ---
CM MET WITH PTS TODAY AT HIS REQUEST HE WAS INFORMED A FOLLOW UP PT EVAL HAS NOT BEEN OBTAINED YET HE IS AWARE PT WILL NOT SKILL INTO STR WITH THE LAST EVAL SHE WAS UNABLE TO FOLLOW CUES CONSISTENTLY HE REPORTS HE FEELS HER MENTATION HAS IMPROVED SOME SO HE HOPES SHE CAN PARTICIPATE WHEN PT RETURNS HE IS AWARE REFERRALS ARE OUT AND BALJIT FORTUNE AND RAMA STEWART ARE FOLLOWING
[2022-10-05 16:19] LABS: Glucose, Whole Blood 98 mg/dL (60-115)
[2022-10-05 19:34] VITALS: BP 138/63; PULSE 75; RESP 20; TEMP 36.6; O2SAT 96
[2022-10-05 20:21] LABS: Glucose, Whole Blood 166 mg/dL (60-115)
[2022-10-05] MEDS: cloNIDine HCL 0.1 MG TABLET PO (20:54)
[2022-10-05] MEDS: Enoxaparin Sodium 40 MG/0.4 ML SYRINGE SUBCUT (21:59)
[2022-10-06] MEDS: Melatonin 3 MG TABLET 6 MG PO (00:52)
[2022-10-06 03:18] VITALS: BP 136/60; PULSE 70; RESP 18; TEMP 36; O2SAT 96
[2022-10-06] MEDS: Levothyroxine Sodium 125 MCG TABLET PO (05:47)
[2022-10-06 07:22] LABS: Glucose, Whole Blood 127 mg/dL (60-115)
[2022-10-06 07:30] VITALS: BP 127/61; PULSE 66; RESP 16; TEMP 36; O2SAT 96
[2022-10-06] MEDS: Aspirin Enteric Coated 81 MG TABLET.DR PO (08:48)
[2022-10-06] MEDS: Insulin Glargine,Hum.rec.anlog 100 UNIT/ML 10 ML VIAL 25 UNIT SUBCUT ×2 (08:48→21:40)
[2022-10-06] MEDS: 0.9 % Sodium Chloride Flush 3 ML SYRINGE IVFLUSH ×3 (08:48→21:42)
[2022-10-06 11:10] LABS: Glucose, Whole Blood 200 mg/dL (60-115)
--- NOTE | 2022-10-06 11:20 | P.PNIM_ITS ---
Subjective Subjective Date of Service: 10/06/22 Interval History: seen and examined this morning Follow-up for encephalopathy Patient awake, alert and talking, following commands although still confused denies any specific complaints, difficult to obtain full ROS Neurologic Neurologic: Reports confusion Psychiatric Psychiatric: Reports confusion Physical Exam Vital Signs: Vital Signs: Last Vital Signs Temp 96.8 F 10/06/22 07:30 Pulse 66 10/06/22 07:30 Resp 16 10/06/22 07:30 BP 127/61 10/06/22 07:30 Pulse Ox 96 10/06/22 07:30 O2 Del Method Room Air 10/06/22 07:30 BMI result Body Mass Index 41.3 Appearing in no acute distress lung sounds are clear to auscultation heart regular rate rhythm, clear S1, S2 positive bowel sounds, abdomen is soft, nontender neuro patient is alert to person and place Const: General: confusion Orientation/consciousness: confusion Neuro: General: confusion Objective Data Active Medications Acetaminophen (Acetaminophen Supp 650 Mg Supp.Rect) 650 mg MS Q6H PRN PRN Reason: Pain, Mild (Pain Scale 1-3) Aspirin (Aspirin Enteric Coated 81 Mg Tablet.Dr) 81 mg PO DAILY [facility] Last Admin: 10/06/22 08:48 Dose: 81 mg Documented By: BLESSING Clonidine HCl (Clonidine Hcl 0.1 Mg Tablet) 0.1 mg PO BEDTIME [facility]; Protocol Last Admin: 10/05/22 20:54 Dose: 0.1 mg Documented By: VICTORINO Comments: BP 138/63 h 75 Enoxaparin Sodium (Enoxaparin Sodium 40 Mg/0.4 Ml Syringe) 40 mg SUBCUT 2200 [facility] Last Admin: 10/05/22 21:59 Dose: 40 mg Documented By: VICTORINO Glucose (Glucose Gel 15 Gm Gel..Gram.) 15 gm PO Q15M PRN; Protocol PRN Reason: per Hypoglycemia Standing Ord. Glucose (Glucose Gel 15 Gm Gel..Gram.) 15 gm PO Q15M PRN; Protocol PRN Reason: per Hypoglycemia Standing Ord. Dextrose (D10) 250 mls @ 750 mls/hr IV Q15M PRN; Protocol PRN Reason: per Hypoglycemia Standing Ord. Ceftriaxone Sodium 2 gm/ (Sodium Chloride) 50 mls @ 100 mls/hr IV Q24H [facility] Last Infusion: 10/05/22 16:37 Dose: 0 mls/hr Documented By: COTEMA Dextrose (D10) 250 mls @ 750 mls/hr IV Q15M PRN; Protocol PRN Reason: per Hypoglycemia Standing Ord. Acyclovir Sodium 765 mg/ (Sodium Chloride) 265.3 mls @ 265.3 mls/hr IV Q8H [facility] Last Admin: 10/06/22 10:33 Dose: 265.3 mls/hr Documented By: BLESSING Insulin Glargine (Insulin Glargine,Hum.Rec.Anlog 100 Unit/Ml 10 Ml Vial) 25 unit SUBCUT BID [facility] Last Admin: 10/06/22 08:48 Dose: 25 unit Documented By: BLESSING Insulin Human Lispro (Insulin Lispro 100 Unit/Ml 3 Ml Vial) 0 unit SUBCUT QIDACHS [facility]; Protocol Last Admin: 10/06/22 07:26 Dose: Not Given Documented By: BLESSING Non-Admin Reason: No Insulin Coverage Levothyroxine Sodium (Levothyroxine Sodium 125 Mcg Tablet) 62.5 mcg PO Bess@0600 [facility] Last Admin: 10/04/22 06:36 Dose: 62.5 mcg Documented By: RAO Levothyroxine Sodium (Levothyroxine Sodium 125 Mcg Tablet) 125 mcg PO MoTuWeThFrSa@0600 [facility] Last Admin: 10/06/22 05:47 Dose: 125 mcg Documented By: VICTORINO Melatonin (Melatonin 3 Mg Tablet) 6 mg PO BEDTIME PRN PRN Reason: Insomnia Last Admin: 10/06/22 00:52 Dose: 6 mg Documented By: VICTORINO Ondansetron HCl (Ondansetron Hcl 4 Mg/2 Ml Vial) 4 mg IVPUSH Q8H PRN PRN Reason: Nausea and Vomiting Pharmacy Consult (Consult Rx Perform Med Rec) 1 each MISCELLANE ONCE PRN PRN Reason: Consult order Sodium Chloride (0.9 % Sodium Chloride Flush 3 Ml Syringe) 3 ml IVFLUSH QSHIFT [facility] Last Admin: 10/06/22 08:48 Dose: 3 ml Documented By: BLESSING Labs 10/03/22 05:58 10/02/22 05:34 Labs: Laboratory Results - last 24 hr 10/05/22 10/05/22 10/06/22 16:10 20:18 07:04 POC Glucose 98 166 H 127 H 10/06/22 11:05 POC Glucose 200 H Assessment and Plan (1) Encephalitis: Status: Acute Plan 72-year-old female with pertinent history of complex migraine, hypothyroidism, insulin-dependent diabetes mellitus who was brought to the emergency department by her for evaluation of altered mentation.? Acute encephalopathy with fever. Improving awake and talking, following commands but remains with some confusion recent admission for the same 09/28/22-09/29/22 - ? workup at that time including LP, brain CT negative, seen by ID and no infectious source identified.? Has had previous similar admissions in 2020 and at [facility] and [facility].? Initially thought to be secondary to complex migraines.? Outpatient ambulatory EEG from February 2022 reportedly negative MRI?negative for acute pathology EEG negative for seizure activity CSF neg, lyme still pending seen by neurology,? possible encephalitis> empiric acyclovir and cover for lyme -? started on acyclovir and IV ceftriaxone 10/01 blood cultures negative Hypothyroidism continue synthroid Insulin-dependent diabetes mellitus. SSI, ADA diet mild transaminitis. resolved hold statin h/o migraine ubrelvy non formulary attending - dr. Stock DVT prophylaxis: Lovenox Full code discussed with at bedside -? reports numerous similar episodes in the past although unclear if associated with fever.? Records from [facility] with no documented fever.? Records from [facility] requested. patient requires ongoing inpatient hospitalization for management of acute encephalopathy Time Spent With Patient Time: Total time managing care of this patient today ____ minutes. Quality Stroke Does the patient have a stroke diagnosis?: No VTE Prior VTE?: No VTE Risk Level:: Medical - moderate - high VTE Device Contraindication: Treatment Not Indicated VTE Drug Contraindication: N/A - Med Ordered
[2022-10-06] MEDS: Insulin Lispro 100 UNIT/ML 3 ML VIAL SUBCUT ×3 (11:58→21:41)
[2022-10-06 16:00] VITALS: BP 132/59; PULSE 71; RESP 18; TEMP 36.2; O2SAT 97
[2022-10-06] MEDS: cefTRIAXone sodium 2 GM in 0.9 % Sodium Chloride 50 ML IV (16:03)
[2022-10-06 16:35] LABS: Glucose, Whole Blood 198 mg/dL (60-115)
--- NOTE | 2022-10-06 17:06 | MHC.SL.DTX ---
Dysphagia Diet modifications: Last documented Solid diet consistencies: Regular Last documented Liquid consistency: Thin Last documented Medication Administration: Changes made to current diet?: No Liquid Consistency and Strategies: Liquid Intake Recommendation: Thin Compensatory Strategies for Safe Swallow: Small Sips Compensatory Strategies for Safe Swallow(b): Sitting Upright (90 deg) Small Bites and Sips Alternate Liquids/Solids Rate of Ingestion Change Oral Check Solid Food Consistency: Dietary Recommendations: Regular Additional Modifications to Solids: No overt s/s of aspiration w/ PO trials. Pt managed dry regular solid well, mild oral residue cleared with subsequent swallow. Pt does require 1:1 assistance feeding d/t level of confusion. [employer] to f/u 1x. Oral Medication Intake: Crushed with Puree Strategies and Precautions to be Taken for Safe Swallow: Sitting Upright (90 deg) Small Bites and Sips Alternate Liquids/Solids Rate of Ingestion Change Oral Check Supervision While Eating and/Drinking: Total Assistance (1:1) Foods to Avoid: Swallowing Recommended Treatments: Compens. Strategy Educat. Level of Impact on: Daily activities: None Interpersonal interactions: Education: None Employment: None Community: None Prognosis for Improvement: Good Recommendation for Speech: Inpatient Speech Therapy Comment: 1 f/u Frequency/Duration: Date Range for Service Req: Timeline to reassess: Additional Comments: Treatment: Pt seen for follow-up. She is tolerating her recommended diet of Regular Solids and Thin Liquids per RN. She tolerated limited amounts of Thin Liquids with [employer] present, refused regular solid (cracker) initially, but took a small bite with encouragement. She had slowed mastication time, but was able to adequately clear with no overt s/s of aspiration. Based on her performance today and within the past 24 hours, no further [employer] treatment is indicated. Assessment: Reference Data Expert Clinican/Clinical Fellow: No Supervisory Statement: I have reviewed and agree with the student/clinical fellow's documentation: N/A Speech Language Pathologist: Moise Waggoner M.A., CCC-[employer]
[2022-10-06 19:22] VITALS: BP 142/62; PULSE 73; RESP 18; TEMP 37; O2SAT 98
[2022-10-06 20:37] LABS: Glucose, Whole Blood 199 mg/dL (60-115)
[2022-10-06] MEDS: cloNIDine HCL 0.1 MG TABLET PO (21:39)
[2022-10-06] MEDS: Enoxaparin Sodium 40 MG/0.4 ML SYRINGE SUBCUT (21:40)
--- NOTE | 2022-10-06 23:19 | PM.IDPN ---
Subjective Subjective Date of Service: 10/06/22 Critical Care Time (minutes): 15 Comment: patient somnolent,temperature to 102.1,no focal signs Objective Data Labs 10/03/22 05:58 10/02/22 05:34 Labs: Laboratory Results - last 24 hr 10/06/22 10/06/22 10/06/22 07:04 11:05 16:31 POC Glucose 127 H 200 H 198 H 10/06/22 20:27 POC Glucose 199 H Physical Exam Vital Signs: Vital Signs: Last Vital Signs Temp 98.6 F 10/06/22 19:22 Pulse 73 10/06/22 19:22 Resp 18 10/06/22 19:22 BP 142/62 H 10/06/22 19:22 Pulse Ox 98 10/06/22 19:22 O2 Del Method Room Air 10/06/22 19:22 BMI result Body Mass Index 41.3 Const: General: cooperative HEENT: Head: Yes normal to inspection Mouth: Normal oral and palatal mucosa present Resp: Effort & Inspection: normal respiratory effort Cardio: Rate: regular rate Rhythm: regular rhythm GI: Inspection: Yes normal to inspection Extrem: General: Yes normal to inspection Psych: Other: sleepy Assessment and Plan Assessment and plan (1) Fever of unknown origin: Problem details: She shouldnt have persistently repeatedly negative HSV and VZV PCR and 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 would like to see patient in transfer ?collagen vascular disease,other cause No response to Acyclovir,other therapies Status: Acute Time Spent With Patient Time: Total time managing care of this patient today ____ minutes.
[2022-10-07 03:59] VITALS: BP 135/63; PULSE 76; RESP 16; TEMP 36.2; O2SAT 96
[2022-10-07] MEDS: Levothyroxine Sodium 125 MCG TABLET PO (06:01)
[2022-10-07 07:07] VITALS: BP 140/65; PULSE 74; RESP 18; TEMP 36.2; O2SAT 98
[2022-10-07 07:15] LABS: Glucose, Whole Blood 144 mg/dL (60-115)
[2022-10-07] MEDS: Aspirin Enteric Coated 81 MG TABLET.DR PO (08:19)
[2022-10-07] MEDS: Insulin Glargine,Hum.rec.anlog 100 UNIT/ML 10 ML VIAL 25 UNIT SUBCUT ×2 (08:19→21:23)
[2022-10-07] MEDS: 0.9 % Sodium Chloride Flush 3 ML SYRINGE IVFLUSH ×3 (08:22→23:08)
[2022-10-07 08:44] LABS: Hematocrit 37.9 % (37.0-47.0); Hemoglobin 12.4 g/dl (12.0-16.0); Mean Corpuscular HGB Conc 32.7 g/dl (31.0-35.0); Mean Corpuscular Hemoglobin 29.6 pg (27.0-33.0); Mean Corpuscular Volume 90.5 fL (80.0-98.0); Mean Platelet Volume 11.4 fL (9.4-12.3); Platelet Count 319 X10*3/uL (160-400); Red Blood Count 4.19 X10*6/uL (4.20-5.50); Red Cell Distribution Width 12.7 % (11.0-16.0); White Blood Count 10.5 X10*3/uL (4.8-10.8)
[2022-10-07 09:03] LABS: Alanine Aminotransferase 34 U/L (0-31); Albumin Level 3.6 g/dL (3.5-5.0); Alkaline Phosphatase 90 U/L (39-117); Anion Gap 14 (12-20); Aspartate Amino Transferase 29 U/L (5-31); Bilirubin Total 1.4 mg/dL (0.0-1.0); Blood Urea Nitrogen 12 mg/dL (9-16); Calcium 9.2 mg/dL (8.4-10.2); Carbon Dioxide 25 mmol/L (22-29); Chloride 108 mmol/L (96-108); Creatinine Clr Calc Pharmacy 72.6; Estimated Glomerular Filt Rate > 60; Glucose Random 225 mg/dL (60-115); Potassium 4.1 mmol/L (3.3-5.1); Sodium 143 mmol/L (135-145); Total Protein 6.5 g/dL (6.5-8.0)
[2022-10-07 09:22] LABS: HIV AB/AG Nonreactive (Nonreactive); HIV Num 1 0.09 S/CO (0.00-0.99)
[2022-10-07 11:20] LABS: Glucose, Whole Blood 175 mg/dL (60-115)
[2022-10-07] MEDS: Insulin Lispro 100 UNIT/ML 3 ML VIAL SUBCUT ×3 (11:45→21:23)
--- NOTE | 2022-10-07 13:14 | MHC.CM.PN ---
EMR REVIEWED AND PER MD ROUNDS, PT IS NOT MEDICALLY CLEARED FOR DC (FEVER OF UNKNOWN ORIGIN CONTINUES, SOMNOLENT)CM WILL CONTINUE TO FOLLOW FOR ANY CHANGE IN PLAN/DC NEEDS
--- NOTE | 2022-10-07 15:16 | HO.PM.IMPN ---
Subjective Subjective Date of Service: 10/07/22 Interval History: no fever or neck stiffness acyclovir + ceftriaxone d/c'ed yesterday per ID c/o bilateral foot numbness Review of Systems Review of Systems: Yes all other systems are reviewed and are negative Physical Exam Vital Signs: Vital Signs: Last Vital Signs Temp 97.2 F 10/07/22 07:07 Pulse 74 10/07/22 07:07 Resp 18 10/07/22 07:07 BP 140/65 H 10/07/22 07:07 Pulse Ox 98 10/07/22 07:07 O2 Del Method Room Air 10/07/22 07:07 BMI result Body Mass Index 41.3 Gen: in no acute distress HEENT: sclera anicteric, moist mucus membranes Neck: supple Lungs: clear to auscultation bilaterally Heart: regular rate and rhythm, no murmurs Abd: soft, non-tender, non-distended, obese Ext: no edema Skin: warm/well-perfused Neuro: alert and oriented x3, decreased sensation to soles of feet bilaterally Psych: restricted affect Objective Data Active Medications Acetaminophen (Acetaminophen 325 Mg Tablet) 650 mg PO Q4H PRN PRN Reason: pain,mild Aspirin (Aspirin Enteric Coated 81 Mg Tablet.) 81 mg PO DAILY [facility] Last Admin: 10/07/22 08:19 Dose: 81 mg Documented By: DEVON Clonidine HCl (Clonidine Hcl 0.1 Mg Tablet) 0.1 mg PO BEDTIME [facility]; Protocol Last Admin: 10/06/22 21:39 Dose: 0.1 mg Documented By: MERLYN Enoxaparin Sodium (Enoxaparin Sodium 40 Mg/0.4 Ml Syringe) 40 mg SUBCUT 2200 [facility] Last Admin: 10/06/22 21:40 Dose: 40 mg Documented By: MERLYN Glucose (Glucose Gel 15 Gm Gel..Gram.) 15 gm PO Q15M PRN; Protocol PRN Reason: per Hypoglycemia Standing Ord. Glucose (Glucose Gel 15 Gm Gel..Gram.) 15 gm PO Q15M PRN; Protocol PRN Reason: per Hypoglycemia Standing Ord. Dextrose (D10) 250 mls @ 750 mls/hr IV Q15M PRN; Protocol PRN Reason: per Hypoglycemia Standing Ord. Dextrose (D10) 250 mls @ 750 mls/hr IV Q15M PRN; Protocol PRN Reason: per Hypoglycemia Standing Ord. Insulin Glargine (Insulin Glargine,Hum.Rec.Anlog 100 Unit/Ml 10 Ml Vial) 25 unit SUBCUT BID [facility] Last Admin: 10/07/22 08:19 Dose: 25 unit Documented By: DEVON Insulin Human Lispro (Insulin Lispro 100 Unit/Ml 3 Ml Vial) 0 unit SUBCUT QIDACHS [facility]; Protocol Last Admin: 10/07/22 11:45 Dose: 2 unit Documented By: DEVON Levothyroxine Sodium (Levothyroxine Sodium 125 Mcg Tablet) 62.5 mcg PO Bess@0600 [facility] Last Admin: 10/04/22 06:36 Dose: 62.5 mcg Documented By: RAO Levothyroxine Sodium (Levothyroxine Sodium 125 Mcg Tablet) 125 mcg PO MoTuWeThFrSa@0600 [facility] Last Admin: 10/07/22 06:01 Dose: 125 mcg Documented By: MERLYN Melatonin (Melatonin 3 Mg Tablet) 6 mg PO BEDTIME PRN PRN Reason: Insomnia Last Admin: 10/06/22 00:52 Dose: 6 mg Documented By: VICTORINO Ondansetron HCl (Ondansetron Hcl 4 Mg/2 Ml Vial) 4 mg IVPUSH Q8H PRN PRN Reason: Nausea and Vomiting Pharmacy Consult (Consult Rx Perform Med Rec) 1 each MISCELLANE ONCE PRN PRN Reason: Consult order Sodium Chloride (0.9 % Sodium Chloride Flush 3 Ml Syringe) 3 ml IVFLUSH QSHIFT [facility] Last Admin: 10/07/22 08:22 Dose: 3 ml Documented By: DEVON Labs 10/07/22 08:37 10/07/22 08:37 Labs: Laboratory Results - last 24 hr 10/06/22 10/06/22 10/07/22 16:31 20:27 07:12 MCV MCH MCHC RDW Plt Count MPV Absolute Nucleated RBC Nucleated RBC % (auto) Anion Gap Estim Creat Clear Calc Estimated GFR POC Glucose 198 H 199 H 144 H Random Glucose Calcium Total Bilirubin AST ALT Alkaline Phosphatase Total Protein Albumin HIV 1&2 Ab/P24 Ag 4thGn 10/07/22 10/07/22 10/07/22 08:37 08:37 08:37 MCV 90.5 MCH 29.6 MCHC 32.7 RDW 12.7 Plt Count 319 MPV 11.4 Absolute Nucleated RBC 0.000 Nucleated RBC % (auto) 0.0 Anion Gap 14 Estim Creat Clear Calc 72.6 Estimated GFR > 60 POC Glucose Random Glucose 225 H Calcium 9.2 Total Bilirubin 1.4 H AST 29 ALT 34 H Alkaline Phosphatase 90 Total Protein 6.5 Albumin 3.6 HIV 1&2 Ab/P24 Ag 4thGn Nonreactive 10/07/22 11:17 MCV MCH MCHC RDW Plt Count MPV Absolute Nucleated RBC Nucleated RBC % (auto) Anion Gap Estim Creat Clear Calc Estimated GFR POC Glucose 175 H Random Glucose Calcium Total Bilirubin AST ALT Alkaline Phosphatase Total Protein Albumin HIV 1&2 Ab/P24 Ag 4thGn Assessment and Plan (1) Encephalitis: Status: Acute Plan hosp d#5 72yo F with complex migraine disorder, hypothyroidism, DM2 recent admission 09/28-09/29 for encephalopathy with fever with negative infectious workup then re-admitted for AMS # acute encephalopathy + fever - afebrile since 09/30 - [place] [facility] [facility]- will request + review records - MRI normal - LP here 09/28 with negative meningoencephalitis molecular panel. Lyme serology from CSF + serum pending. HIV negative. check T pallidum EIA - was on acyclovir + ceftriaxone 10/01-10/06, d/c'ed per ID - discuss with ID + Neuro - may require outpatient tertiary care Neurology evaluation- ?[employer]IVE vasculitis. check ESR + CRP, BLUE # hypothyroidism - continue LT4 # DM2 - jersey-dose lispro # mild transminasemia - statin held # migraine disorder - on Ubrelvy at home # VTE ppx: LMWH # dispo: TBD In my clinical judgment, the patient requires continued inpatient hospitalization for the following reasons: neuro/ID workup Time Spent With Patient Time: Total time managing care of this patient today _40___ minutes. Quality Stroke Does the patient have a stroke diagnosis?: No VTE Prior VTE?: No VTE Risk Level:: Medical - moderate - high VTE Device Contraindication: Treatment Not Indicated VTE Drug Contraindication: N/A - Med Ordered
[2022-10-07 15:24] VITALS: BP 158/75; PULSE 64; RESP 18; TEMP 36; O2SAT 97
[2022-10-07 16:08] LABS: C Reactive Protein 1.93 mg/dL (< or = 0.50)
[2022-10-07 16:11] LABS: Glucose, Whole Blood 177 mg/dL (60-115)
[2022-10-07 16:31] LABS: Procalcitonin 0.04 ng/mL
[2022-10-07 17:02] LABS: Erythrocyte Sedimentation Rate 30 MM/HR (0-20)
[2022-10-07 19:15] VITALS: BP 138/63; PULSE 70; RESP 20; TEMP 36.4; O2SAT 96
[2022-10-07 20:54] LABS: Glucose, Whole Blood 216 mg/dL (60-115)
[2022-10-07] MEDS: Enoxaparin Sodium 40 MG/0.4 ML SYRINGE SUBCUT (21:22)
[2022-10-07] MEDS: cloNIDine HCL 0.1 MG TABLET PO (21:23)
[2022-10-07] MEDS: Acetaminophen 325 MG TABLET 650 MG PO (23:06)
[2022-10-07] MEDS: Melatonin 3 MG TABLET 6 MG PO (23:07)
[2022-10-08 03:13] VITALS: BP 154/68; PULSE 64; RESP 18; TEMP 36.1; O2SAT 97
[2022-10-08] MEDS: Levothyroxine Sodium 125 MCG TABLET PO (06:05)
[2022-10-08 07:35] LABS: Glucose, Whole Blood 162 mg/dL (60-115)
[2022-10-08] MEDS: Aspirin Enteric Coated 81 MG TABLET.DR PO (07:44)
[2022-10-08] MEDS: Insulin Glargine,Hum.rec.anlog 100 UNIT/ML 10 ML VIAL 25 UNIT SUBCUT ×2 (07:44→21:16)
[2022-10-08] MEDS: Insulin Lispro 100 UNIT/ML 3 ML VIAL SUBCUT ×4 (07:44→21:16)
[2022-10-08] MEDS: 0.9 % Sodium Chloride Flush 3 ML SYRINGE IVFLUSH ×3 (07:45→21:17)
[2022-10-08 08:00] VITALS: BP 111/66; PULSE 67; RESP 18; TEMP 36; O2SAT 96
[2022-10-08 11:48] LABS: Glucose, Whole Blood 227 mg/dL (60-115)
--- NOTE | 2022-10-08 14:32 | HO.PM.IMPN ---
Subjective Subjective Date of Service: 10/08/22 Interval History: bilateral foot numbness improved no headache no neck pain/stiffness no fever Review of Systems Review of Systems: Yes all other systems are reviewed and are negative Physical Exam Vital Signs: Vital Signs: Last Vital Signs Temp 96.8 F 10/08/22 08:00 Pulse 67 10/08/22 08:00 Resp 18 10/08/22 08:00 BP 111/66 10/08/22 08:00 Pulse Ox 96 10/08/22 08:00 O2 Del Method Room Air 10/08/22 08:00 BMI result Body Mass Index 41.3 Gen: in no acute distress HEENT: sclera anicteric, moist mucus membranes Neck: supple Lungs: clear to auscultation bilaterally Heart: regular rate and rhythm, no murmurs Abd: soft, non-tender, non-distended, obese Ext: no edema Skin: warm/well-perfused Neuro: alert and oriented x3, decreased sensation to soles of feet bilaterally Psych: restricted affect Objective Data Active Medications Acetaminophen (Acetaminophen 325 Mg Tablet) 650 mg PO Q4H PRN PRN Reason: pain,mild Last Admin: 10/07/22 23:06 Dose: 650 mg Documented By: BRENDAN Aspirin (Aspirin Enteric Coated 81 Mg Tablet.) 81 mg PO DAILY [facility] Last Admin: 10/08/22 07:44 Dose: 81 mg Documented By: TONYA Clonidine HCl (Clonidine Hcl 0.1 Mg Tablet) 0.1 mg PO BEDTIME [facility]; Protocol Last Admin: 10/07/22 21:23 Dose: 0.1 mg Documented By: MIKE Enoxaparin Sodium (Enoxaparin Sodium 40 Mg/0.4 Ml Syringe) 40 mg SUBCUT 2200 [facility] Last Admin: 10/07/22 21:22 Dose: 40 mg Documented By: MIKE Glucose (Glucose Gel 15 Gm Gel..Gram.) 15 gm PO Q15M PRN; Protocol PRN Reason: per Hypoglycemia Standing Ord. Glucose (Glucose Gel 15 Gm Gel..Gram.) 15 gm PO Q15M PRN; Protocol PRN Reason: per Hypoglycemia Standing Ord. Dextrose (D10) 250 mls @ 750 mls/hr IV Q15M PRN; Protocol PRN Reason: per Hypoglycemia Standing Ord. Dextrose (D10) 250 mls @ 750 mls/hr IV Q15M PRN; Protocol PRN Reason: per Hypoglycemia Standing Ord. Insulin Glargine (Insulin Glargine,Hum.Rec.Anlog 100 Unit/Ml 10 Ml Vial) 25 unit SUBCUT BID [facility] Last Admin: 10/08/22 07:44 Dose: 25 unit Documented By: TONYA Insulin Human Lispro (Insulin Lispro 100 Unit/Ml 3 Ml Vial) 0 unit SUBCUT QIDACHS [facility]; Protocol Last Admin: 10/08/22 11:54 Dose: 4 unit Documented By: TONYA Levothyroxine Sodium (Levothyroxine Sodium 125 Mcg Tablet) 62.5 mcg PO Bess@0600 [facility] Last Admin: 10/04/22 06:36 Dose: 62.5 mcg Documented By: RAO Levothyroxine Sodium (Levothyroxine Sodium 125 Mcg Tablet) 125 mcg PO MoTuWeThFrSa@0600 [facility] Last Admin: 10/08/22 06:05 Dose: 125 mcg Documented By: BRENDAN Melatonin (Melatonin 3 Mg Tablet) 6 mg PO BEDTIME PRN PRN Reason: Insomnia Last Admin: 10/07/22 23:07 Dose: 6 mg Documented By: BRENDAN Ondansetron HCl (Ondansetron Hcl 4 Mg/2 Ml Vial) 4 mg IVPUSH Q8H PRN PRN Reason: Nausea and Vomiting Pharmacy Consult (Consult Rx Perform Med Rec) 1 each MISCELLANE ONCE PRN PRN Reason: Consult order Sodium Chloride (0.9 % Sodium Chloride Flush 3 Ml Syringe) 3 ml IVFLUSH QSHIFT [facility] Last Admin: 10/08/22 07:45 Dose: 3 ml Documented By: TONYA Labs 10/07/22 08:37 10/07/22 08:37 Labs: Laboratory Results - last 24 hr 10/07/22 10/07/22 10/07/22 08:37 08:37 16:04 ESR 30 H POC Glucose 177 H C-Reactive Protein 1.93 H Procalcitonin 0.04 10/07/22 10/08/22 10/08/22 20:50 07:29 11:36 ESR POC Glucose 216 H 162 H 227 H C-Reactive Protein Procalcitonin Assessment and Plan (1) Encephalitis: Status: Acute Plan hosp d#6 72yo F with complex migraine disorder, hypothyroidism, DM2 recent admission 09/28-09/29 for encephalopathy with fever with negative infectious workup then re-admitted for AMS # acute encephalopathy + fever - afebrile since 09/30 - prior admission for [place] [facility] [place] [facility]- will request + review records - MRI normal - LP here 09/28 with negative meningoencephalitis molecular panel. Lyme serology from CSF + serum pending. HIV negative. T pallidum pending. BLUE pending. - was on acyclovir + ceftriaxone 10/01-10/06, d/c'ed per ID - discuss with ID + Neuro - may require outpatient tertiary care Neurology evaluation # hypothyroidism - continue LT4 # DM2 - jersey-dose lispro # mild transminasemia - statin held # migraine disorder - on Ubrelvy at home # VTE ppx: LMWH # dispo: TBD In my clinical judgment, the patient requires continued inpatient hospitalization for the following reasons: neuro/ID workup Time Spent With Patient Time: Total time managing care of this patient today ___35_ minutes. Quality Stroke Does the patient have a stroke diagnosis?: No VTE Prior VTE?: No VTE Risk Level:: Medical - moderate - high VTE Device Contraindication: Treatment Not Indicated VTE Drug Contraindication: N/A - Med Ordered
[2022-10-08 15:50] LABS: Glucose, Whole Blood 203 mg/dL (60-115)
[2022-10-08 15:54] VITALS: BP 145/60; PULSE 75; RESP 20; TEMP 36.6; O2SAT 99
[2022-10-08 19:24] VITALS: BP 147/66; PULSE 71; RESP 18; TEMP 36.8; O2SAT 95
[2022-10-08 20:54] LABS: Glucose, Whole Blood 206 mg/dL (60-115)
[2022-10-08] MEDS: cloNIDine HCL 0.1 MG TABLET PO (21:15)
[2022-10-08] MEDS: Melatonin 3 MG TABLET 6 MG PO (21:15)
[2022-10-08] MEDS: Enoxaparin Sodium 40 MG/0.4 ML SYRINGE SUBCUT (21:16)
[2022-10-09 01:49] LABS: Syphilis Screen Nonreactive (Nonreactive)
[2022-10-09 04:00] VITALS: BP 137/63; PULSE 75; RESP 17; TEMP 36.5; O2SAT 94
[2022-10-09] MEDS: Levothyroxine Sodium 125 MCG TABLET PO (05:21)
[2022-10-09 07:31] VITALS: BP 126/59; PULSE 69; RESP 18; TEMP 36.2; O2SAT 98
[2022-10-09 07:35] LABS: Glucose, Whole Blood 149 mg/dL (60-115)
[2022-10-09] MEDS: Aspirin Enteric Coated 81 MG TABLET.DR PO (08:07)
[2022-10-09] MEDS: Insulin Glargine,Hum.rec.anlog 100 UNIT/ML 10 ML VIAL 25 UNIT SUBCUT (08:07)
[2022-10-09 11:24] LABS: Glucose, Whole Blood 295 mg/dL (60-115)
[2022-10-09 11:25] LABS: COVID-19 Test Negative (Negative); IDNOW Serial# 08D9AD1C
[2022-10-09] MEDS: Insulin Lispro 100 UNIT/ML 3 ML VIAL SUBCUT ×2 (11:53→16:50)
[2022-10-09 13:06] VITALS: BP 126/59; PULSE 69; O2SAT 98
--- NOTE | 2022-10-09 14:40 | MHC.CM.PN ---
DP: PT MEDICALLY CLEARED FOR DC TODAY. [facility] OFFERED A BED PENDING [facility] INSURANCE AUTH. [facility] HAS DENIED STR. AWARE. PT/ MADE AWARE. WILL TAKE HOME WITH [facility]UMPTION OF [facility]. [facility] UPDATED ON DC. WILL TRANSPORT AT 3:30 PM. RN AWARE. IMM DELIVERED.
--- NOTE | 2022-10-09 15:15 | PM.IMHP ---
History of Present Illness Date of Service: 10/09/22 Chief Complaint: AMS from admission H+P by hospitalist José Miguel Villanueva MD, 09/30/22: This is a 72-year-old female with pertinent history of complex migraine, hypothyroidism, insulin-dependent diabetes mellitus who was brought to the emergency department by her for evaluation of altered mentation.? Patient was recently admitted on 09/28 and discharged on 09/29 with acute encephalopathy and high-grade fever likely due to complex migraine.? Patient has had similar episodes with fevers in the past and has had extensive workup including LP that was unremarkable.? Infectious etiology ruled out during prior admission.? Patient was evaluated by Neurology who thought that patient's symptoms were due to complex migraine and with bed to fit from MRI.? Patient workup during hospital course and wanted to be discharged with outpatient MRI.? Patient also had a recent 24 hour ambulatory EEG study negative.? Unable to obtain history or review of systems from the patient Ms Nguyen is a 72yo F with complex migraine disorder, hypothyroidism, and DM2 with recent admission 09/28-09/29 for encephalopathy with fever with negative infectious workup then who was re-admitted for AMS. She has had multiple admissions at [facility] as well as [facility] with similar presentations that have been variously attributed to malignant catatonia or complex migraine syndrome. LP here 09/28 with slightly high CSF protein of 46.5 and 5 WBCs, so she was treated with ceftriaxone and acyclovir per Neurology consultation for concern of encephalitis. Ultimately, with negative meningoencephalitis molecular panel and cultures, acyclovir and ceftriaxone were discontinued per Infectious Disease consultation. CSF Lyme serology was negative. She was afebrile since re-admitted for AMS # acute encephalopathy + fever - afebrile since 09/30 - prior admission for similar presentation at [facility] + [facility]- will request + review records - MRI normal - ? Lyme serology from CSF + serum pending.? HIV negative.? T pallidum pending.? BLUE pending. - was on acyclovir + ceftriaxone 10/01-10/06, d/c'ed per ID - discuss with ID + Neuro - may require outpatient tertiary care Neurology evaluation [facility] Medical History (Updated 10/07/22 @ 00:03 by Background Cristian) Complicated migraine Diabetes HLD (hyperlipidemia) HTN (hypertension) Hypothyroid Family History Other Lung cancer Surgical History H/O section Hx of cholecystectomy Social History Household Members: Spouse Housing: House Do you presently have visiting nurse or other home services: No (just finished last week) Unable to assess alcohol history related to: Unable to respond and Refusing to respond Alcohol intake: former Patient Tobacco Use Status: Never used Tobacco e-Cigarette/Vaping Use: Never Used Second Hand Smoke Exposure: No Advance Directives Date on File: 09/28/22 service: No Current occupational status: retired Meds Allergies Allergy/AdvReac Type Severity Reaction Status Date / Time Iodinated Contrast Media Allergy Severe SEDATION,TA Verified 07/24/20 19:30 [IVP DYE] CHYCARDIA erythromycin base Allergy Unknown HIVES Verified 07/24/20 19:30 [ERYTHROMYCIN BASE] Active Medications: Current Medications Acetaminophen (Acetaminophen 325 Mg Tablet) 650 mg PO Q4H PRN PRN Reason: pain,mild Last Admin: 10/07/22 23:06 Dose: 650 mg Aspirin (Aspirin Enteric Coated 81 Mg Tablet.Dr) 81 mg PO DAILY CARLOTTA Last Admin: 10/09/22 08:07 Dose: 81 mg Clonidine HCl (Clonidine Hcl 0.1 Mg Tablet) 0.1 mg PO BEDTIME CARLOTTA; Protocol Last Admin: 10/08/22 21:15 Dose: 0.1 mg Clotrimazole (Clotrimazole 1 % Vaginal Cream 45 Gm Tube) 1 appl VAGINAL BEDTIME CARLOTTA Stop: 10/15/22 21:01 Enoxaparin Sodium (Enoxaparin Sodium 40 Mg/0.4 Ml Syringe) 40 mg SUBCUT 2200 CARLOTTA Last Admin: 10/08/22 21:16 Dose: 40 mg Glucose (Glucose Gel 15 Gm Gel..Gram.) 15 gm PO Q15M PRN; Protocol PRN Reason: per Hypoglycemia Standing Ord. Glucose (Glucose Gel 15 Gm Gel..Gram.) 15 gm PO Q15M PRN; Protocol PRN Reason: per Hypoglycemia Standing Ord. Dextrose (D10) 250 mls @ 750 mls/hr IV Q15M PRN; Protocol PRN Reason: per Hypoglycemia Standing Ord. Dextrose (D10) 250 mls @ 750 mls/hr IV Q15M PRN; Protocol PRN Reason: per Hypoglycemia Standing Ord. Insulin Glargine (Insulin Glargine,Hum.Rec.Anlog 100 Unit/Ml 10 Ml Vial) 25 unit SUBCUT BID [facility] Last Admin: 10/09/22 08:07 Dose: 25 unit Insulin Human Lispro (Insulin Lispro 100 Unit/Ml 3 Ml Vial) 0 unit SUBCUT QIDACHS [facility]; Protocol Last Admin: 10/09/22 11:53 Dose: 6 unit Levothyroxine Sodium (Levothyroxine Sodium 125 Mcg Tablet) 62.5 mcg PO Kenny@0600 [facility] Last Admin: 10/04/22 06:36 Dose: 62.5 mcg Levothyroxine Sodium (Levothyroxine Sodium 125 Mcg Tablet) 125 mcg PO MoTuWeThFrSa@0600 [facility] Last Admin: 10/09/22 05:21 Dose: 125 mcg Melatonin (Melatonin 3 Mg Tablet) 6 mg PO BEDTIME PRN PRN Reason: Insomnia Last Admin: 10/08/22 21:15 Dose: 6 mg Ondansetron HCl (Ondansetron Hcl 4 Mg/2 Ml Vial) 4 mg IVPUSH Q8H PRN PRN Reason: Nausea and Vomiting Pharmacy Consult (Consult Rx Perform Med Rec) 1 each MISCELLANE ONCE PRN PRN Reason: Consult order Sodium Chloride (0.9 % Sodium Chloride Flush 3 Ml Syringe) 3 ml IVFLUSH QSHIFT [facility] Last Admin: 10/09/22 08:40 Dose: Not Given Home Medications Medication Instructions Recorded Confirmed Last Taken Type blood sugar diagnostic (FreeStyle 09/28/22 09/28/22 Unknown History Lite Strips) clonidine HCl 0.1 mg tablet 0.1 mg PO BEDTIME 09/28/22 10/01/22 Unknown History gabapentin 300 mg capsule 300 mg PO BID 09/28/22 10/01/22 Unknown History gabapentin 300 mg capsule 600 mg PO BEDTIME 09/28/22 10/01/22 Unknown History (Neurontin) insulin glargine 100 unit/mL (3 50 unit subcut BID 09/28/22 10/01/22 Unknown History mL) subcutaneous pen (Lantus Solostar U-100 Insulin) insulin lispro 100 unit/mL See Rx Instructions .Route .COMPLEX 09/28/22 10/01/22 Unknown History subcutaneous pen levothyroxine 125 mcg tablet 125 mcg PO MOTUWETHFRSA 09/28/22 10/01/22 Unknown History pen needle, diabetic 32 gauge x 09/28/22 09/28/22 Unknown History 1/4 (BD Ultra-Fine Micro Pen Needle) simvastatin 20 mg tablet 20 mg PO BEDTIME 09/28/22 10/01/22 Unknown History ubrogepant 100 mg tablet (Ubrelvy) 100 mg PO DIRECTED 09/28/22 10/01/22 Unknown History aspirin 81 mg tablet,delayed 81 mg PO DAILY 10/01/22 10/01/22 Unknown History release cholecalciferol (vitamin D3) 25 25 mcg PO DAILY 10/01/22 10/01/22 Unknown History mcg (1,000 unit) tablet levothyroxine 125 mcg tablet 62.5 mcg PO KENNY 10/01/22 10/01/22 Unknown History melatonin 10 mg tablet 10 mg PO BEDTIME 10/01/22 10/01/22 Unknown History Physical Exam Vital Signs and Narrative: Vital Signs: Last Vital Signs Temp 97.2 F 10/09/22 07:31 Pulse 69 10/09/22 13:06 Resp 18 10/09/22 07:31 BP 126/59 L 10/09/22 13:06 Pulse Ox 98 10/09/22 13:06 O2 Del Method Room Air 10/09/22 07:31 BMI result Body Mass Index 41.3 Results Labs 10/07/22 08:37 10/07/22 08:37 Labs: Laboratory Results - last 24 hr 10/07/22 10/08/22 10/08/22 08:37 15:43 20:46 POC Glucose 203 H 206 H T.pallidum Ab (EIA) Nonreactive COVID-19 (MARI) COVID-19 Clin Com 10/09/22 10/09/22 10/09/22 07:30 10:40 11:19 POC Glucose 149 H 295 H T.pallidum Ab (EIA) COVID-19 (MARI) Negative COVID-19 Clin Com See Note Assessment and Plan Time Spent With Patient Time: Total time managing care of this patient today ____ minutes. Quality Stroke Does the patient have a stroke diagnosis?: No VTE Prior VTE?: No VTE Risk Level:: Medical - moderate - high VTE Device Contraindication: Treatment Not Indicated VTE Drug Contraindication: N/A - Med Ordered
--- NOTE | 2022-10-09 15:26 | P.DS_ITS ---
DS: Providers Provider Date of Service: 10/09/22 Date of admission: 10/03/22 13:56 Date of discharge: 10/09/22 Primary care physician: Bhakti Rodgers MD Consults: 09/30/22 23:45 Consult to Neurology Routine Consulting Provider: [facility] Reason for consultation: complex migraine 10/06/22 11:21 Consult to Infectious Diseases Routine Consulting Provider: [facility] Infectious Disease Reason for consultation: encephalopathy DS: Diagnosis Discharge Diagnosis (1) Complicated migraine: Status: Acute (2) Encephalopathy acute: Status: Acute DS: Summary Hospital Course Hospital Course: from admission H+P by hospitalist José Miguel Villanueva MD, 09/30/22: This is a 72-year-old female with pertinent history of complex migraine, hypothyroidism, insulin-dependent diabetes mellitus who was brought to the emergency department by her for evaluation of altered mentation.? Patient was recently admitted on 09/28 and discharged on 09/29 with acute encephalopathy and high-grade fever likely due to complex migraine.? Patient has had similar episodes with fevers in the past and has had extensive workup including LP that was unremarkable.? Infectious etiology ruled out during prior admission.? Patient was evaluated by Neurology who thought that patient's symptoms were due to complex migraine and with bed to fit from MRI.? Patient workup during hospital course and wanted to be discharged with outpatient MRI.? Patient also had a recent 24 hour ambulatory EEG study negative.? Unable to obtain history or review of systems from the patient Ms Nguyen is a 72yo F with complex migraine disorder, hypothyroidism, and DM2 with recent admission 09/28-09/29 for encephalopathy with fever with negative infectious workup then who was re-admitted for AMS. She has had multiple admissions at [facility] as well as [facility] with similar presentations that have been variously attributed to malignant catatonia or complex migraine syndrome. LP here 09/28 with slightly high CSF protein of 46.5 and 5 WBCs, so she was treated with ceftriaxone and acyclovir per Neurology consultation for concern of encephalitis. Ultimately, with negative meningoencephalitis molecular panel and cultures, acyclovir and ceftriaxone were discontinued per Infectious Disease consultation. CSF Lyme serology was negative. She was afebrile since admission with normal mental status. She was discharged home with resumption of VNA services. She should follow up with her outpatient neurologist, Dr Luevano, and consider tertiary care neurology referral. Time Spent with Patient Time attestation: Total time managing care of this patient today ____ minutes. 40 Discharge coordination time: Greater than 30 minutes Quality: Safe Use of Opioids Does Pt have an Active Cancer Diagnosis on the Problem List?: No Quality: Stroke Does the patient have a stroke diagnosis?: No Physical Exam Vital Signs: Vital Signs: Last Vital Signs Temp 97.2 F 10/09/22 07:31 Pulse 69 10/09/22 13:06 Resp 18 10/09/22 07:31 BP 126/59 L 10/09/22 13:06 Pulse Ox 98 10/09/22 13:06 O2 Del Method Room Air 10/09/22 07:31 BMI result Body Mass Index 41.3 Gen: in no acute distress HEENT: sclera anicteric, moist mucus membranes Neck: supple Lungs: clear to auscultation bilaterally Heart: regular rate and rhythm, no murmurs Abd: soft, non-tender, non-distended, obese Ext: no edema Skin: warm/well-perfused Neuro: alert and oriented x3, decreased sensation to soles of feet bilaterally Psych: restricted affect DS: Data Data Completed and Pending Completed studies during hospitalization [Text1]: Laboratory Results WBC 10.5 X10*3/uL (4.8-10.8) 10/07/22 08:37 RBC 4.19 X10*6/uL (4.20-5.50) L 10/07/22 08:37 Hgb 12.4 g/dl (12.0-16.0) 10/07/22 08:37 Hct 37.9 % (37.0-47.0) 10/07/22 08:37 MCV 90.5 fL (80.0-98.0) 10/07/22 08:37 MCH 29.6 pg (27.0-33.0) 10/07/22 08:37 MCHC 32.7 g/dl (31.0-35.0) 10/07/22 08:37 RDW 12.7 % (11.0-16.0) 10/07/22 08:37 Plt Count 319 X10*3/uL (160-400) 10/07/22 08:37 MPV 11.4 fL (9.4-12.3) 10/07/22 08:37 Immature Gran % (Auto) 0.6 % (0.0-0.4) H 10/01/22 05:42 Neut % (Auto) 82.6 % (45-73) H 10/01/22 05:42 Lymph % (Auto) 14.8 % (20-40) L 10/01/22 05:42 [place] % (Auto) 1.8 % (2-11) L 10/01/22 05:42 Eos % (Auto) 0.0 % (0-4) 10/01/22 05:42 Baso % (Auto) 0.2 % (0-2) 10/01/22 05:42 Lymph # (Auto) 1.4 X10*3/uL (1.2-4.9) 10/01/22 05:42 [place] # (Auto) 0.2 X10*3/uL (0.1-1.2) 10/01/22 05:42 Eos # (Auto) 0.0 X10*3/uL (0.0-0.4) 10/01/22 05:42 Baso # (Auto) 0.0 X10*3/uL (0.0-0.2) 10/01/22 05:42 Abs Immat Gran (auto) 0.06 X10*3/uL (0.00-0.03) H 10/01/22 05:42 Absolute Neuts (auto) 8.1 x10*3/uL (2.0-8.3) 10/01/22 05:42 Absolute Nucleated RBC 0.000 X10*3/uL (0.0-0.012) 10/07/22 08:37 Nucleated RBC % (auto) 0.0 /100WBC (0.0-0.2) 10/07/22 08:37 ESR 30 MM/HR (0-20) H 10/07/22 08:37 Sodium 143 mmol/L (135-145) 10/07/22 08:37 Potassium 4.1 mmol/L (3.3-5.1) 10/07/22 08:37 Chloride 108 mmol/L (96-108) 10/07/22 08:37 Carbon Dioxide 25 mmol/L (22-29) 10/07/22 08:37 Anion Gap 14 (12-20) 10/07/22 08:37 BUN 12 mg/dL (9-16) 10/07/22 08:37 Creatinine 0.87 mg/dL (0.5-1.4) 10/07/22 08:37 Estim Creat Clear Calc 72.6 10/07/22 08:37 Estimated GFR > 60 10/07/22 08:37 POC Glucose 295 mg/dL (60-115) H 10/09/22 11:19 Random Glucose 225 mg/dL (60-115) H 10/07/22 08:37 Calcium 9.2 mg/dL (8.4-10.2) 10/07/22 08:37 Total Bilirubin 1.4 mg/dL (0.0-1.0) H 10/07/22 08:37 Direct Bilirubin 0.3 mg/dL (0.0-0.5) 10/03/22 05:58 AST 29 U/L (5-31) 10/07/22 08:37 ALT 34 U/L (0-31) H 10/07/22 08:37 Alkaline Phosphatase 90 U/L (39-117) 10/07/22 08:37 C-Reactive Protein 1.93 mg/dL (< or = 0.50) H 10/07/22 08:37 Total Protein 6.5 g/dL (6.5-8.0) 10/07/22 08:37 Albumin 3.6 g/dL (3.5-5.0) 10/07/22 08:37 Procalcitonin 0.04 ng/mL 10/07/22 08:37 T.pallidum Ab (EIA) Nonreactive (Nonreactive) 10/07/22 08:37 COVID-19 (MARI) Negative (Negative) 10/09/22 10:40 COVID-19 Clin Com See Note 10/09/22 10:40 HIV 1&2 Ab/P24 Ag 4thGn Nonreactive (Nonreactive) 10/07/22 08:37 Impressions Brain MRI 10/01/22 15:25 IMPRESSION: - No acute intracranial findings. No acute infarcts. - There is mild chronic microangiopathy. Discharge Plan Discharge Anticipated Discharge Date/Time: 10/09/22 15:13 Patient Disposition: Home Health Service Discharge Diagnosis: acute encephalopathy + fever Referrals: Nia Luevano MD [Physician] - 1 Week Bhakti Rodgers MD [Primary Care Provider] - 1 Week Discharge Medications: Continued clonidine HCl 0.1 mg tablet 0.1 mg PO BEDTIME (DME) FreeStyle Lite Strips Strip 1 strip MISCELLANEOUS TID simvastatin 20 mg tablet 20 mg PO BEDTIME levothyroxine 125 mcg tablet 125 mcg PO MOTUWETHFRSA gabapentin [Neurontin] 300 mg capsule 600 mg PO BEDTIME Rx Instructions: 2x daily and twice at bedtime insulin lispro 100 unit/mL insulin pen See Rx Instructions .ROUTE .COMPLEX Rx Instructions: inject subq 3x daily with meals per sliding scale 80-99 inject 31 units 100-149 inject 33 units 150-199 inject 37 units 200-249 inject 41 units 250-299 inject 43 units 300-349 inject 45 units 350-399 inject 47 units 400 and higher: inject 49 units and call MD insulin glargine [Lantus Solostar U-100 Insulin] 100 unit/mL (3 mL) insulin pen 50 unit subcut BID Rx Instructions: inject 50 units subq in the morning (8am) and 50 units at night (8pm) (DME) pen needle, diabetic [BD Ultra-Fine Micro Pen Needle] 32 gauge x 1/4 needle MISCELLANEOUS Ubrelvy 100 mg tablet 100 mg PO DIRECTED Rx Instructions: take at onset of migraine. MRX1 after 2 hours. Do not exceed 2 doses in 24 hours gabapentin 300 mg capsule 300 mg PO BID Patient Comments: 6am and 2pm aspirin 81 mg Tablet,Delayed Release (Dr/Ec) 81 mg PO DAILY levothyroxine 125 mcg tablet 62.5 mcg PO KENNY cholecalciferol (vitamin D3) 25 mcg (1,000 unit) Tablet 25 mcg PO DAILY melatonin 10 mg Tablet 10 mg PO BEDTIME Discharge Orders: Discharge Order (Routine); Ordered 10/09/22 Ordered By: Lukasz Guajardo Diet: Advance to usual diet Activity on Discharge: As tolerated Stand Alone Forms: Patient Portal Discharge page Care Plan Goals: diagnosis of neurologic conditions Health Concerns: recurrent encephalopathy Plan of Treatment: follow up with your neurologist Dr Luevano consider referral to tertiary care center for neurology Please follow up with your primary care doctor within 1 week. Return to the hospital if you experience recurrent or worsening symptoms. Assessment: See Discharge Summary.
[2022-10-09 15:41] VITALS: BP 145/65; PULSE 72; RESP 16; TEMP 36.3; O2SAT 97
--- NOTE | 2022-10-09 16:15 | P.F2F_ITS ---
Service Date Service Date: 10/09/22 Encounter Date of encounter: 10/09/22 Reasons for Services Signs and symptoms assessed: Gross Deconditioning, Impaired Bed Mobility, Impaired Cognition, Impaired Gait Pattern, Impaired Joint ROM,Impaired Personal Hygiene, Impaired Safety ,Impaired Standing Balance, Impaired Transfer Ability, Impaired Trunk Control, Inability to Dress Self, Inability to Use Toilet, Muscle Spasm, Muscle Weakness ,Pain Reason for physical therapy: home safety and mobility, therapeutic exercises, gait/transfer training, assess need for DME, ADL training and energy conservation Homebound: Leaving the home is medically contraindicated at this time without the asist of a device and/or another person due th the listed conditions above and below. Reason homebound: unsteady gait / fall risk and weakness related to hospital stay Homebound supporting statement: 1. Bed mobility S. 2. Transfers CGA. 3. Ambulate 50ft with RW at MOD A. Treatment Plan Bed Mobility, Transfer Training,Gait Training, Therapeutic Activities, Therapeutic Exercise,Neuro Re-education, Patient Education, Safety,Balance Certification: Based on the above findings, I certify that this patient is confined to the home and needs intermittent half-way care, physical therapy and/or speech therapy, or continues to need occupational therapy. The patient is under my care, and I have initiated the establishment of the plan of care. The patient will be followed by a physician who will periodically review the plan of care. Time Spent With Patient Time: Total time managing care of this patient today ____ minutes.
[2022-10-09 16:26] LABS: Glucose, Whole Blood 230 mg/dL (60-115)
[2022-10-09 17:49] LABS: Lyme Abs Screen <0.90 index
[2022-10-14 15:48] LABS: Anti Nuclear Antibody Pattern Nuclear, Homogeneous; Anti Nuclear Antibody Screen POSITIVE (NEGATIVE)
== END 2022-10-09 17:26 | disposition home health service (06) | DRG 71 ==
LOC: HO.ED 20:36 → HO.EDOVER 23:59 → HO.S3 10-01 11:02
PROVIDERS: Nurse Practitioner Acute Care; Physician Assistant Medical; Admitting Provider Student in an Organized Health Care Education/Training Program; Emergency Provider Internal Medicine; PCP Internal Medicine; Visit Provider Family Medicine
DX: G93.41 Metabolic encephalopathy (principal); Z68.41 Body mass index [BMI] 40.0-44.9, adult; G43.109 Migraine with aura, not intractable, without status migrainosus; E78.5 Hyperlipidemia, unspecified; E66.3 Overweight; E03.9 Hypothyroidism, unspecified; E11.9 Type 2 diabetes mellitus without complications; R74.01 Elevation of levels of liver transaminase levels; R50.9 Fever, unspecified; Z20.822 Contact with and (suspected) exposure to COVID-19; Z91.041 Radiographic dye allergy status; Z79.82 Long term (current) use of aspirin; Z79.4 Long term (current) use of insulin; Z79.890 Hormone replacement therapy; Z79.899 Other long term (current) drug therapy
CPT/HCPCS: 36415; 70551; 80048; 80053; 80076; 82947; 84145; 85025; 85027; 85652; 86038; 86039; 86140; 86617; 86618; 86780; 87389; 87635; 92526; 92610; 95816; 97116; 97163; 97530; 99285; J0133; J0696; J1100; J1200; J1650; J1885; J2060; J2765; J3030

== ENCOUNTER 2022-11-17 19:59 | Emergency (ER) | payer MEDICARE, SELFPAY ==
--- NOTE | ~2022-11-17 | CT_ITS ---
EXAMINATION: CT ABDOMEN AND PELVIS WITHOUT CONTRAST CLINICAL INFORMATION: Right-sided abdominal pain. COMPARISON: 09/28/2022 TECHNIQUE: Multidetector volumetric imaging was performed from the superior aspect of the liver through the pubic symphysis. Sagittal and coronal reformatted images were obtained on the technologist's workstation. This CT examination was performed using dose optimization techniques as appropriate, variously including the following: *Automated exposure control *Adjustment of mA and/or kV according to patient size (this includes techniques or standardized protocols for targeted exams where dose is matched to indication/reason for exam; i.e. extremities or head) *Use of iterative reconstruction technique DLP: 929 mGy-cm FINDINGS: LUNG BASES: Pleural based calcifications are present at the posterior aspects of the lung bases bilaterally. Linear pleural parenchymal scarring is present at the left lung base with associated chronic atelectatic lung. LIVER, GALLBLADDER, AND BILIARY TREE: Relative evidently in the hepatic parenchyma is consistent with steatosis. Liver is at the upper limits of normal in size. No focal lesions on this unenhanced study. No appreciable biliary ductal dilatation. Gallbladder is not seen on these images, likely surgically absent. No appreciable intrahepatic or extrahepatic biliary ductal dilatation. PANCREAS: Unremarkable. SPLEEN: Unremarkable. ADRENAL GLANDS: Unremarkable. KIDNEYS AND URETERS: The kidneys are normal in size, shape, and attenuation. No hydronephrosis, hydroureter, or calculi seen. No perinephric stranding. BLADDER: Unremarkable. GASTROINTESTINAL TRACT: Stomach, small bowel, and colon are normal in caliber. No bowel wall thickening or surrounding inflammatory changes mild colonic diverticulosis. No evidence of acute diverticulitis. Appendix is normal. No intraperitoneal free fluid or free air. ABDOMINAL WALL: Postsurgical changes of prior ventral abdominal surgery. No significant superimposed hernias. LYMPH NODES: Normal. VASCULAR: Mild calcific atherosclerosis abdominal aorta and iliac arteries. PELVIC VISCERA: The uterus and adnexa are unremarkable. OSSEOUS STRUCTURES: Diffuse idiopathic skeletal hyperostosis is present in the lower thoracic spine. Mild to moderate osteoarthritis in the SI joints and, to a lesser extent, the hips. Mild degenerative spondylosis in the lumbar spine. No acute osseous findings. CT/CT abdomen pelvis wo IV con IMPRESSION: 1. No acute intra-abdominal or intrapelvic abnormalities. 2. Hepatic steatosis. 3. Mild colonic diverticulosis without evidence of acute diverticulitis. Fleischner guidelines were followed.
--- NOTE | 2022-11-17 20:12 | ED_ITS ---
HPI - General Adult General Chief complaint: Abdominal Pain Stated complaint: R sided abdominal pain Time Seen by Provider: 11/18/22 06:54 Source: patient Mode of arrival: ambulatory Limitations: no limitations History of Present Illness HPI narrative: 72 female with complex migraine, hypothyroidism, IDDM, complex migraines, encephalopathy, catatonia who comes in with c/o 1 month intermittent RUQ pain when she eats but has been trying to deal with it. She has been in and out of the hospital recently with fevers and altered mental status though today with me she is conversing well and now nervous she is going to miss appointments she has scheduled. She has no n/v/d or black or bloody stools denies chest pain /shortness of breath. MD complaint: R sided abdominal pain Onset (ago): month(s) (1) Location: abdomen Radiation: abdomen Severity: moderate Quality: aching Pain Consistency: intermittent Relieving factors: none Exacerbating factors: eating Associated symptoms: denies other symptoms Treatments prior to arrival: none Related Data Home Medications Medication Instructions Recorded Confirmed blood sugar diagnostic (FreeStyle 09/28/22 09/28/22 Lite Strips) clonidine HCl 0.1 mg tablet 0.1 mg PO BEDTIME 09/28/22 10/01/22 gabapentin 300 mg capsule 300 mg PO BID 09/28/22 10/01/22 gabapentin 300 mg capsule 600 mg PO BEDTIME 09/28/22 10/01/22 (Neurontin) insulin glargine 100 unit/mL (3 50 unit subcut BID 09/28/22 10/01/22 mL) subcutaneous pen (Lantus Solostar U-100 Insulin) insulin lispro 100 unit/mL See Rx Instructions .Route .COMPLEX 09/28/22 10/01/22 subcutaneous pen levothyroxine 125 mcg tablet 125 mcg PO MOTUWETHFRSA 09/28/22 10/01/22 pen needle, diabetic 32 gauge x 09/28/22 09/28/2205/13 (BD Ultra-Fine Micro Pen Needle) simvastatin 20 mg tablet 20 mg PO BEDTIME 09/28/22 10/01/22 ubrogepant 100 mg tablet (Ubrelvy) 100 mg PO DIRECTED 09/28/22 10/01/22 aspirin 81 mg tablet,delayed 81 mg PO DAILY 05/25/23 05/25/23 release cholecalciferol (vitamin D3) 25 25 mcg PO DAILY 10/01/22 10/01/22 mcg (1,000 unit) tablet levothyroxine 125 mcg tablet 62.5 mcg PO KENNY 10/01/22 10/01/22 melatonin 10 mg tablet 10 mg PO BEDTIME 10/01/22 10/01/22 Allergies Allergy/AdvReac Type Severity Reaction Status Date / Time Iodinated Contrast Media Allergy Severe SEDATION,TA Verified 11/17/22 20:17 [IVP DYE] CHYCARDIA azithromycin Allergy Unknown Hives Verified 11/17/22 20:17 erythromycin base Allergy Unknown HIVES Verified 11/17/22 20:17 [ERYTHROMYCIN BASE] metformin AdvReac Unknown Diarrhea Verified 11/17/22 20:17 Review of Systems Review of Systems: Constitutional : No Fever, No Chills ENT/Mouth : No sore throat Eyes: No Eye Pain, No Swelling, No Redness Cardiovascular : No Chest Pain, No SOB Respiratory : No Cough, No Sputum, No Wheezing Gastrointestinal : no Nausea, no Vomiting, No Diarrhea, positive abdominal pain Genitourinary : no Dysuria, no urinary frequency, no Hematuria Musculoskeletal : No joint pain, No Myalgias Skin : No Skin Lesions, No rash Neuro : No Weakness, No Numbness, No Headache Psych : No Anxiety/Panic, No Depression Heme/Lymph: No Bruising, No Lymphadenopathy Endocrine : No Polyuria, No Polydipsia All other systems reviewed and are negative [facility] Past Medical History Attestation statement: The following information was validated with the patient. Source: old records reviewed Medical History Complicated migraine Diabetes Encephalitis HLD (hyperlipidemia) HTN (hypertension) Hypothyroid Surgical History H/O section Hx of cholecystectomy Hx of left mastectomy Family History Family History (Updated 11/06/22 @ 09:55 by Kizzy Gerardo CMA) Mother Lung cancer Diabetes Depression Daughter Alcohol abuse Social History Social History Household Members: Spouse Housing: House Do you presently have visiting nurse or other home services: No (just finished last week) Unable to assess alcohol history related to: Unable to respond and Refusing to respond Alcohol intake: former Patient Tobacco Use Status: Never used Tobacco Smoked in Last 30 Days: No e-Cigarette/Vaping Use: Never Used Second Hand Smoke Exposure: No Use of substances other than those prescribed or required for medical reasons: No Advance Directives: Yes Advance Directives on File: Yes Advance Directives Date on File: 09/28/22 service: No Current occupational status: retired Physical Exam ED Vital Signs: Vital Signs - 24 hr 11/17/22 20:15 11/18/22 04:48 11/18/22 06:05 Temperature 97.8 F 98.1 F 97.9 F Pulse Rate 92 85 82 Respiratory Rate 16 14 14 Blood Pressure 147/67 H 125/53 L 137/51 L Pulse Oximetry 96 96 97 Oxygen Delivery Method Room Air Room Air Room Air 11/18/22 07:33 Temperature 98.5 F Pulse Rate 100 Respiratory Rate Blood Pressure 139/64 Pulse Oximetry 97 Oxygen Delivery Method Room Air BMI result Body Mass Index 42.0 Appearance: Alert. Oriented X3. No acute distress. Eyes: Pupils equal, round and reactive to light. ENT: Pharynx normal. Neck: Normal inspection. Neck supple. CVS: Normal heart rate and rhythm. Pulses normal. Respiratory: No respiratory distress. Breath sounds normal. Abdomen: Soft and mild RUQ ttp no rash seen has old Eliana incision Skin: Skin warm and dry. Normal skin color. Normal skin turgor. Extremities: No lower extremity edema. No calf ttp Neuro: Oriented X 3. No motor deficit. No sensory deficit. Course Course Course Narrative: This is an RME: Additional HPI, ROS, PE not included below will be deferred to primary provider. Patient is a 72-year-old female with a past medical history of aspiration pneumonia presenting with right upper quadrant pain Since this afternoon. Patient denies urinary symptoms. Patient denies fever, chills, chest pain, shortness of breath, nausea, vomiting, numbness, tingling, headache, vision changes. Plan: labs, imaging Medical Decision Making Medical Decision Making MDM Narrative: 72 female with complex migraine, hypothyroidism, IDDM, complex migraines, encep halopathy, catatonia here with c/o R flank and RUQ pain on and off for 1 month after eating - no n/v/d no fevers, she is alert and oriented today labs, CT scan and urine are negative. She has overall benign exam. She denies GERD symptoms to me. SHe has no CP/SOB to suggest ACS or PE. It is associated with food not exertional and not pleuritic. She will be sent home with PCP follow up. Denies fevers. Differential Diagnosis Differential Diagnoses: The differential diagnosis associated with the presentation includes retained stone, kidney stones, UTI, gastritis, anxiety, MSK strain, GERD Admission/Observation Consideration of admission/observation: Escalation of care including admission/observation considered no vomiting, isolated pain with negative labs and CT scan can be managed as outpatient Lab Data MDM Lab Attestation statement: I reviewed the patient's lab results. 11/17/22 23:34 11/17/22 21:01 Labs: Lab Results 11/17/22 11/17/22 11/17/22 Range/Units 21:01 21:01 21:01 WBC (4.8-10.8) X10*3/uL RBC (4.20-5.50) X10*6/uL Hgb (12.0-16.0) g/dl Hct (37.0-47.0) % MCV (80.0-98.0) fL MCH (27.0-33.0) pg MCHC (31.0-35.0) g/dl RDW (11.0-16.0) % Plt Count (160-400) X10*3/uL MPV (9.4-12.3) fL Immature Gran % (Auto) (0.0-0.4) % Neut % (Auto) (45-73) % Lymph % (Auto) (20-40) % Chambers % (Auto) (2-11) % Eos % (Auto) (0-4) % Baso % (Auto) (0-2) % Lymph # (Auto) (1.2-4.9) X10*3/uL Chambers # (Auto) (0.1-1.2) X10*3/uL Eos # (Auto) (0.0-0.4) X10*3/uL Baso # (Auto) (0.0-0.2) X10*3/uL Abs Immat Gran (auto) (0.00-0.03) X10*3/uL Absolute Neuts (auto) (2.0-8.3) x10*3/uL Absolute Nucleated RBC (0.0-0.012) X10*3/uL Nucleated RBC % (auto) (0.0-0.2) /100WBC Sodium 139 (135-145) mmol/L Potassium 4.3 (3.3-5.1) mmol/L Chloride 106 (96-108) mmol/L Carbon Dioxide 22 (22-29) mmol/L Anion Gap 15 (12-20) BUN 28 H (9-16) mg/dL Creatinine 0.89 (0.5-1.4) mg/dL Estim Creat Clear Calc 71.7 Estimated GFR > 60 POC Glucose (60-115) mg/dL Random Glucose 128 H (60-115) mg/dL Calcium 9.7 (8.4-10.2) mg/dL Magnesium 1.9 (1.6-2.6) mg/dL Total Bilirubin 1.1 H (0.0-1.0) mg/dL AST 35 H (5-31) U/L ALT 43 H (0-31) U/L Alkaline Phosphatase 121 H (39-117) U/L Total Protein 7.2 (6.5-8.0) g/dL Albumin 3.8 (3.5-5.0) g/dL Lipase 12 (8-78) U/L Beta HCG, Quant < 2 mIU/mL Urine Color Urine Appearance Urine pH (5.0-9.0) Ur Specific Montague (1.005-1.025) Urine Protein (Neg-Trace) mg/dL Urine Glucose (UA) (Negative) mg/dL Urine Ketones (Negative) mg/dL Urine Blood (Negative) Urine Nitrite (Negative) Ur Leukocyte Esterase (Negative) COVID-19 (MARI) Cancelled COVID-19 Clin Com Cancelled 11/17/22 11/17/22 11/18/22 Range/Units 23:34 23:34 04:44 WBC 11.7 H (4.8-10.8) X10*3/uL RBC 4.40 (4.20-5.50) X10*6/uL Hgb 13.1 (12.0-16.0) g/dl Hct 38.7 (37.0-47.0) % MCV 88.0 (80.0-98.0) fL MCH 29.8 (27.0-33.0) pg MCHC 33.9 (31.0-35.0) g/dl RDW 12.9 (11.0-16.0) % Plt Count 298 (160-400) X10*3/uL MPV 11.2 (9.4-12.3) fL Immature Gran % (Auto) 0.5 H (0.0-0.4) % Neut % (Auto) 56.2 (45-73) % Lymph % (Auto) 31.6 (20-40) % Chambers % (Auto) 9.2 (2-11) % Eos % (Auto) 2.2 (0-4) % Baso % (Auto) 0.3 (0-2) % Lymph # (Auto) 3.7 (1.2-4.9) X10*3/uL Chambers # (Auto) 1.1 (0.1-1.2) X10*3/uL Eos # (Auto) 0.3 (0.0-0.4) X10*3/uL Baso # (Auto) 0.0 (0.0-0.2) X10*3/uL Abs Immat Gran (auto) 0.06 H (0.00-0.03) X10*3/uL Absolute Neuts (auto) 6.6 (2.0-8.3) x10*3/uL Absolute Nucleated RBC 0.000 (0.0-0.012) X10*3/uL Nucleated RBC % (auto) 0.0 (0.0-0.2) /100WBC Sodium (135-145) mmol/L Potassium (3.3-5.1) mmol/L Chloride (96-108) mmol/L Carbon Dioxide (22-29) mmol/L Anion Gap (12-20) BUN (9-16) mg/dL Creatinine (0.5-1.4) mg/dL Estim Creat Clear Calc Estimated GFR POC Glucose 234 H (60-115) mg/dL Random Glucose (60-115) mg/dL Calcium (8.4-10.2) mg/dL Magnesium (1.6-2.6) mg/dL Total Bilirubin (0.0-1.0) mg/dL AST (5-31) U/L ALT (0-31) U/L Alkaline Phosphatase (39-117) U/L Total Protein (6.5-8.0) g/dL Albumin (3.5-5.0) g/dL Lipase (8-78) U/L Beta HCG, Quant mIU/mL Urine Color Urine Appearance Urine pH (5.0-9.0) Ur Specific Montague (1.005-1.025) Urine Protein (Neg-Trace) mg/dL Urine Glucose (UA) (Negative) mg/dL Urine Ketones (Negative) mg/dL Urine Blood (Negative) Urine Nitrite (Negative) Ur Leukocyte Esterase (Negative) COVID-19 (MARI) Negative COVID-19 Clin Com See Note 11/18/22 Range/Units 07:30 WBC (4.8-10.8) X10*3/uL RBC (4.20-5.50) X10*6/uL Hgb (12.0-16.0) g/dl Hct (37.0-47.0) % MCV (80.0-98.0) fL MCH (27.0-33.0) pg MCHC (31.0-35.0) g/dl RDW (11.0-16.0) % Plt Count (160-400) X10*3/uL MPV (9.4-12.3) fL Immature Gran % (Auto) (0.0-0.4) % Neut % (Auto) (45-73) % Lymph % (Auto) (20-40) % Chambers % (Auto) (2-11) % Eos % (Auto) (0-4) % Baso % (Auto) (0-2) % Lymph # (Auto) (1.2-4.9) X10*3/uL Chambers # (Auto) (0.1-1.2) X10*3/uL Eos # (Auto) (0.0-0.4) X10*3/uL Baso # (Auto) (0.0-0.2) X10*3/uL Abs Immat Gran (auto) (0.00-0.03) X10*3/uL Absolute Neuts (auto) (2.0-8.3) x10*3/uL Absolute Nucleated RBC (0.0-0.012) X10*3/uL Nucleated RBC % (auto) (0.0-0.2) /100WBC Sodium (135-145) mmol/L Potassium (3.3-5.1) mmol/L Chloride (96-108) mmol/L Carbon Dioxide (22-29) mmol/L Anion Gap (12-20) BUN (9-16) mg/dL Creatinine (0.5-1.4) mg/dL Estim Creat Clear Calc Estimated GFR POC Glucose (60-115) mg/dL Random Glucose (60-115) mg/dL Calcium (8.4-10.2) mg/dL Magnesium (1.6-2.6) mg/dL Total Bilirubin (0.0-1.0) mg/dL AST (5-31) U/L ALT (0-31) U/L Alkaline Phosphatase (39-117) U/L Total Protein (6.5-8.0) g/dL Albumin (3.5-5.0) g/dL Lipase (8-78) U/L Beta HCG, Quant mIU/mL Urine Color Yellow Urine Appearance Clear Urine pH 5.5 (5.0-9.0) Ur Specific Montague 1.010 (1.005-1.025) Urine Protein Negative (Neg-Trace) mg/dL Urine Glucose (UA) Negative (Negative) mg/dL Urine Ketones Negative (Negative) mg/dL Urine Blood Negative (Negative) Urine Nitrite Negative (Negative) Ur Leukocyte Esterase Negative (Negative) COVID-19 (MARI) COVID-19 Clin Com Independent Interpretation I performed an independent interpretation of an: CT Scan Interpretation: no acute findings on CT scan Radiology Impression Discussion of test interpretation with radiology: I have reviewed the radiologist's reading. Independent Historian Clinical information obtained from an independent historian. History obtained from or confirmed by: Spouse External Record Review External record reviewed: Inpatient record Discharge Plan Discharge Clinical Impression: Flank pain Patient Disposition: Home, Self-Care Instructions: Flank Pain (ED) Additional Instructions: labs, urine and CT scan were negative in the emergency department. please follow up with your doctor given your symptoms are 1 month in nature call in the next week return for fevers, vomiting, diarrhea, black or bloody stools, chest pain or trouble breathing and any other concerns. Prescriptions: No Action clonidine HCl 0.1 mg tablet 0.1 mg PO BEDTIME (DME) FreeStyle Lite Strips Strip 1 strip MISCELLANEOUS TID simvastatin 20 mg tablet 20 mg PO BEDTIME levothyroxine 125 mcg tablet 125 mcg PO MOTUWETHFRSA gabapentin [Neurontin] 300 mg capsule 600 mg PO BEDTIME Rx Instructions: 2x daily and twice at bedtime insulin lispro 100 unit/mL insulin pen See Rx Instructions .ROUTE .COMPLEX Rx Instructions: inject subq 3x daily with meals per sliding scale 80-99 inject 31 units 100-149 inject 33 units 150-199 inject 37 units 200-249 inject 41 units 250-299 inject 43 units 300-349 inject 45 units 350-399 inject 47 units 400 and higher: inject 49 units and call MD insulin glargine [Lantus Solostar U-100 Insulin] 100 unit/mL (3 mL) insulin pen 50 unit subcut BID Rx Instructions: inject 50 units subq in the morning (8am) and 50 units at night (8pm) (DME) pen needle, diabetic [BD Ultra-Fine Micro Pen Needle] 32 gauge x 1/4 needle MISCELLANEOUS Ubrelvy 100 mg tablet 100 mg PO DIRECTED Rx Instructions: take at onset of migraine. MRX1 after 2 hours. Do not exceed 2 doses in 24 hours gabapentin 300 mg capsule 300 mg PO BID Patient Comments: 6am and 2pm aspirin 81 mg Tablet,Delayed Release (Dr/Ec) 81 mg PO DAILY levothyroxine 125 mcg tablet 62.5 mcg PO KENNY cholecalciferol (vitamin D3) 25 mcg (1,000 unit) Tablet 25 mcg PO DAILY melatonin 10 mg Tablet 10 mg PO BEDTIME
[2022-11-17 20:15] VITALS: BP 147/67; PULSE 92; RESP 16; TEMP 36.6; O2SAT 96; BMI 42.0
[2022-11-17 21:29] LABS: Alanine Aminotransferase 43 U/L (0-31); Albumin Level 3.8 g/dL (3.5-5.0); Alkaline Phosphatase 121 U/L (39-117); Anion Gap 15 (12-20); Aspartate Amino Transferase 35 U/L (5-31); Bilirubin Total 1.1 mg/dL (0.0-1.0); Blood Urea Nitrogen 28 mg/dL (9-16); Calcium 9.7 mg/dL (8.4-10.2); Carbon Dioxide 22 mmol/L (22-29); Chloride 106 mmol/L (96-108); Creatinine Clr Calc Pharmacy 71.7; Estimated Glomerular Filt Rate > 60; Glucose Random 128 mg/dL (60-115); Lipase 12 U/L (8-78); Magnesium 1.9 mg/dL (1.6-2.6); Potassium 4.3 mmol/L (3.3-5.1); Sodium 139 mmol/L (135-145); Total Protein 7.2 g/dL (6.5-8.0)
[2022-11-17 21:36] LABS: HCG Quantitative < 2 mIU/mL
[2022-11-17 23:44] LABS: Basophils Percent Auto 0.3 % (0-2); Eosinophils Absolute Auto 0.3 X10*3/uL (0.0-0.4); Eosinophils Percent Auto 2.2 % (0-4); Hematocrit 38.7 % (37.0-47.0); Hemoglobin 13.1 g/dl (12.0-16.0); Imm Gran Abs Auto 0.06 X10*3/uL (0.00-0.03); Imm Gran Pct Auto 0.5 % (0.0-0.4); Lymphocytes Absolute Auto 3.7 X10*3/uL (1.2-4.9); Lymphocytes Percent Auto 31.6 % (20-40); Mean Corpuscular HGB Conc 33.9 g/dl (31.0-35.0); Mean Corpuscular Hemoglobin 29.8 pg (27.0-33.0); Mean Platelet Volume 11.2 fL (9.4-12.3); Monocytes Absolute Auto 1.1 X10*3/uL (0.1-1.2); Monocytes Percent Auto 9.2 % (2-11); Neutrophils Absolute Auto 6.6 x10*3/uL (2.0-8.3); Neutrophils Percent Auto 56.2 % (45-73); Platelet Count 298 X10*3/uL (160-400); Red Cell Distribution Width 12.9 % (11.0-16.0); White Blood Count 11.7 X10*3/uL (4.8-10.8)
[2022-11-17 23:45] LABS: MANUAL DIFF FLAG NO
[2022-11-17 23:53] LABS: COVID-19 Test Negative (Negative); IDNOW Serial# 08D9AD1C
[2022-11-18 04:48] VITALS: BP 125/53; PULSE 85; RESP 14; TEMP 36.7; O2SAT 96
[2022-11-18 04:57] LABS: Glucose, Whole Blood 234 mg/dL (60-115)
--- NOTE | 2022-11-18 04:58 | PC.NURSE ---
Pt is unable to provide a urine sample at this time.
--- NOTE | 2022-11-18 05:13 | PC.NURSE ---
Pt aox4 resting with family at the bedside. VSS. Pt reports having diabetes and no PO intake for 8 hours and expresses concerns for low blood sugars. POC 234. Pending physician debbie. Will continue to monitor.
[2022-11-18 06:05] VITALS: BP 137/51; PULSE 82; RESP 14; TEMP 36.6; O2SAT 97
[2022-11-18 07:33] VITALS: BP 139/64; PULSE 100; TEMP 36.9; O2SAT 97
[2022-11-18 07:41] LABS: Appearance Urine Clear; Color Urine Yellow; Glucose Urine UA Negative (Negative); Leukocyte Esterase Urine Negative (Negative); Nitrite Urine Negative (Negative); PH 5.5 (5.0-9.0); Urine Blood Negative (Negative); Urine Ketones Negative (Negative); Urine Protein Negative (Neg-Trace)
[2022-11-18] MEDS: Acetaminophen 325 MG TABLET 650 MG PO (08:09)
[2022-11-18] MEDS: Lidocaine 4 % Patch ADH..PATCH 1 PATCH TRANSDERMA (08:10)
== END 2022-11-18 08:14 | disposition home or self-care (01) ==
PROVIDERS: Physician Assistant; Emergency Provider Emergency Medicine; PCP Internal Medicine
DX: R10.9 Unspecified abdominal pain (principal); R10.11 Right upper quadrant pain; Z20.822 Contact with and (suspected) exposure to COVID-19; E11.9 Type 2 diabetes mellitus without complications; I10 Essential (primary) hypertension; E78.5 Hyperlipidemia, unspecified; Z79.4 Long term (current) use of insulin; Z79.899 Other long term (current) drug therapy
CPT/HCPCS: 36415; 74176; 80053; 81003; 82947; 83690; 83735; 84702; 85025; 87635; 99202; 99284

== ENCOUNTER 2022-11-18 09:30 | Outpatient (AMB) | payer MEDICARE, SELFPAY ==
--- NOTE | 2022-11-18 09:51 | MHC.OFFVIS ---
Intake Vital Signs 11/18/22 10:00 Height 5 ft 4 in Weight 244 lb 2 oz BMI 41.9 BP 130/62 Blood Pressure Location Rt brachial Position Sitting Pulse 94 Pulse Source Pulse Oximeter Temp 96 F L Pulse Oximetry (%) 96 Oxygen Delivery Method Room Air Intake Visit Reasons: CLINICAL CARE COORDINATOR Post hosp FU/complex migraines - LVM Intake Note: NPV for Migraines Allergies Iodinated Contrast Media [IVP DYE] Allergy (Severe, Verified 01/06/23 15:52) SEDATION,TACHYCARDIA azithromycin Allergy (Unknown, Verified 01/06/23 15:52) Hives erythromycin base [ERYTHROMYCIN BASE] Allergy (Unknown, Verified 01/06/23 15:52) HIVES metformin Adverse Reaction (Unknown, Verified 01/06/23 15:52) Diarrhea Medication List - Last Reconciled 12/04/22 by ANTHONY Almonte aspirin 81 mg PO DAILY blood sugar diagnostic (FreeStyle Lite Strips) cholecalciferol (vitamin D3) 25 mcg PO DAILY clonidine HCl 0.1 mg PO BEDTIME gabapentin (Neurontin) 600 mg PO BEDTIME gabapentin 300 mg PO BID insulin glargine (Lantus Solostar U-100 Insulin) 50 units subcut BID insulin lispro inject subq 3x daily with meals per sliding scale 80-99 inject 31 units 100-149 inject 33 units 150-199 inject 37 units 200-249 inject 41 units 250-299 inject 43 units 300-349 inject 45 units 350-399 inject 47 units 400 and higher: inject 49 units and call levothyroxine 125 mcg PO MOTUWETHFR levothyroxine 62.5 mcg PO KENNY melatonin 10 mg PO BEDTIME pen needle, diabetic (BD Ultra-Fine Micro Pen Needle) simvastatin 20 mg PO BEDTIME ubrogepant (Ubrelvy) 100 mg PO DIRECTED HPI HPI Comments History of Present Illness Details Right-handed 72-yr-old female presents for new pt evaluation of complex migraine . Pt is accompanied by her , Joey. Pt reports she started having headaches as a child, and then complex migraines in her late 20s/early 30s after she had her dtrs. She has been seeing neurology for some time. Initially she could manage the migraine w/ sleep 4-6 hrs and then woke-up feeling fine. Over the last 1-2 years the migraines have become more severe and complex. The episodes now last 24-36 hrs. She may have used Sumatriptan a few times- unsure if it helped. She has had mx hospitalizations- 1 at [facility], 3 at [facility], and 3 at [facility]. Review of [facility] admission notes: 02/10/2022:, Hospital Course? 71 year old female w past medical history of IDDM w neuropathy, HTN, HLP, recent admission at [facility] for ? hemiplegic migraine (pt s neurologist is Dr. Osorio, [phone])?presented now?with altered mental status for three weeks. Daughter thinks that the cause for her AMS is some sort of parasite infection?as she doesnot have proper hygiene. ?Pt is observed in the ED that she is having some visual hallucinations. She is trying to grab onto objects in the air which are not there.??Work-up with acute kidney injury which has since resolved. Patient was seen by psychiatry as well?and at this time delirium/hallucinations have improved as well Per PCP notes: Jan 2022- pt was hospitalized d/t being found unresponsive in bed, tremulous, febrile. Initially was thought to be d/t serotonin syndrome, but psych did not it was. ? catatonia. July 2022- hospitalization d/t dtr finding pt walking around w/ AMS and inability to speak. CTA head/neck- NL. Was tx'd w/ Ceftriaixne d/t fever. Then required IV lorazepam and ICU admit for airway management. 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 On discahrge- ? genetic tetsing. Pt also evaluated by cardiology d/t EKG w/ nonspecific ST abnormality, slightly elevated troponin, though echocardiogram w/ normal ventricle size, systolic function, w/o wall motion abnormalities. 07/25/22, pt was seen by Dr Hanks- ? complex migraine, ? 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 [place]09/[place] [facility] [place]: She has had multiple admissions at [facility] as well as [facility] with similar presentations that have been variously attributed to malignant catatonia or complex migraine syndrome.? LP here 09/28 with slightly high CSF protein of 46.5 and 5 WBCs, so she was treated with ceftriaxone and acyclovir per Neurology consultation for concern of encephalitis.? Ultimately, with negative meningoencephalitis molecular panel and cultures,? acyclovir and ceftriaxone were discontinued per Infectious Disease consultation.? CSF Lyme serology was negative.? She was afebrile since admission with normal mental status.? She was discharged home with resumption of VNA services.? She should follow up with her outpatient neurologist, Dr Luevano, and consider tertiary care neurology referral. In the recent hospitalization, pt were told to stop any triptans, try Ubrelvy- has not tried yet but concerned that she would not be able to take as the tablet is bigger and not sure if she could swallow it during the episode. Review of recent labs: CPK 2485H 09/28/22 CPK 130 NL, 07/06/20 Migraine questionnaire: Migraine characteristics? Varies. She states the migraine can start with being dazed x's 5-10 min, tingling in either or both feet, sometimes can be unilateral UE and/or LE but may be whole body weakness, or speech changes. Lately these come on very fast, she quickly becomes out of it and is not aware of what is going on- can last 32 hrs. She does not recall having headaches with any of these episodes. She always go to the ER with these episodes. When she was in [facility]- she was seeing spiders, ants, a child in the room, she was worried they were going to make her a prostitute. Pain intensity? denies actual head pain Prodrome symptoms? unsure Aura? unsure Other associated symptoms? More recently just her head can have fever. She used to have photophobia. Unsure about photophobia. Focal weakness, Parethesias, Autonomic s/s? tingling Denies: Associated N/V. Postdrome? unsure Triggers? Unsure Positional, valsalva, exertional, sexual activity triggers? Unsure Time of day? No specific time Current acute medication use/interventions: Has not tried Ubrelvy Previous acute medication use: Sumatriptan- unsure of effect Current preventative medication use: None Previous preventative medication use: Topiramate- ineffective Other: Working w/ [facility]- Dr Hutchinson to start CPAP- [employer] is her supplier. Prone to tremor if her blood sugar is off. Family history of migraine or other headache disorder? Her mother had migraine, her sister has migraine/seizure, her dtr has chronic migraine. 09/2022 at [facility]: EEG IMPRESSION:? Limited EEG because of the patient's restlessness and uncooperativeness.? No definite epileptic tendency was noted. 02/2022, 24 hr EEG: Reported as normal 09/2022 at [facility]: MR head/brain wo con IMPRESSION: - No acute intracranial findings. No acute infarcts. - There is mild chronic microangiopathy. 06/2020 at [facility]: CT/CT angio head? neck stroke IMPRESSION: 1. No evidence of acute intracranial hemorrhage or edematous territorial infarction. Mild underlying microangiopathy and generalized cerebral volume loss. 2. CTA of the head and neck without proximal occlusion or flow-limiting stenosis. PFSH Medical History Complicated migraine Diabetes Encephalitis HLD (hyperlipidemia) HTN (hypertension) Hypothyroid Surgical History H/O section Hx of cholecystectomy Hx of left mastectomy Family History Mother Lung cancer Diabetes Depression Daughter Alcohol abuse Father FH: cholecystectomy Social History Household Members: Spouse Housing: House Do you presently have visiting nurse or other home services: No (just finished last week) Alcohol intake: never Patient Tobacco Use Status: Never used Tobacco e-Cigarette/Vaping Use: Never Used Second Hand Smoke Exposure: No Advance Directives Date on File: 09/28/22 service: No Current occupational status: retired Review of Systems Const Details: See scanned ROS form Physical Exam Vital Signs: Last Vital Signs Temp 96 F L 11/18/22 10:00 Pulse 94 11/18/22 10:00 BP 130/62 11/18/22 10:00 Pulse Ox 96 11/18/22 10:00 Oxygen Delivery Method Room Air 11/18/22 10:00 BMI result Body Mass Index 41.9 Const Orientation/consciousness: patient oriented x3 HEENT Other: No palpable scalp tenderness. Head: Yes normocephalic Resp Effort & Inspection: normal respiratory effort and able to speak in complete sentences Neuro Other: DTRs dulled throughout General: patient oriented x3 Cranial nerves: Yes CN's II-XII intact bilaterally (w/ exception of left facial assymetry) Cognition (Neuro): normal cognition Motor exam (neuro): 5/5 motor strength present throughout Coordination: [id number] test normal Pupils: Normal pupillary reactivity/response: bilateral Psych Appearance: grossly normal Mental Status: mental status grossly normal Speech and movement: Normal speech and movement present Affect: normal affect Attitude: cooperative Thought process: Normal thought process present Assessment & Plan Assessment & Plan (1) Migraine with aura: Comment: vs episodes of malignant catatonia- elevated CK > 2000 during August hosp admission, however attack responded to Imitrex and Lorazepam. Code(s): G43.109 - Migraine with aura, not intractable, without status migrainosus (2) Tremor: Code(s): R25.1 - Tremor, unspecified (3) Obstructive sleep apnea: Code(s): G47.33 - Obstructive sleep apnea (adult) (pediatric) Plan Trial Ubrogepant at onset of migraine attack. Future considerations: optimizing migraine prevention regimen Coding Level of Care Code New Pt Level 4 (14402) Diagnoses Migraine with aura G43.109 Tremor R25.1 Obstructive sleep apnea G47.33
[2022-11-18 10:00] VITALS: BP 130/62; PULSE 94; TEMP 35.5; O2SAT 96; BMI 41.9
== END 2022-11-18 11:28 | disposition home or self-care (01) ==
LOC: HO.HSMS 09:30
PROVIDERS: PCP Internal Medicine; Visit Provider Nurse Practitioner Family
DX: G43.109 Migraine with aura, not intractable, without status migrainosus (principal); R25.1 Tremor, unspecified; G47.33 Obstructive sleep apnea (adult) (pediatric)
CPT/HCPCS: 99204

== ENCOUNTER 2022-12-07 11:18 | Outpatient (REF) | payer MEDICARE, SELFPAY ==
[2022-12-07 12:47] LABS: Erythrocyte Sedimentation Rate 19 MM/HR (0-20)
[2022-12-07 13:11] LABS: Anion Gap 15 (12-20); Blood Urea Nitrogen 22 mg/dL (9-16); Calcium 9.9 mg/dL (8.4-10.2); Carbon Dioxide 25 mmol/L (22-29); Chloride 107 mmol/L (96-108); Estimated Glomerular Filt Rate 59; Glucose Random 109 mg/dL (60-115); Potassium 4.4 mmol/L (3.3-5.1); Sodium 143 mmol/L (135-145)
[2022-12-07 13:31] LABS: T4 Thyroxine 7.9 ug/dL (4.5-12.0); Thyroid Stimulating Hormone 1.45 uIU/mL (0.32-4.0)
[2022-12-08 23:23] LABS: Lyme Abs Screen <0.90 index
== END 2022-12-07 11:19 | disposition home or self-care (01) ==
LOC: HO.LAB 11:18
PROVIDERS: PCP Internal Medicine; Visit Provider Psychiatry & Neurology Neurology
DX: M79.10 Myalgia, unspecified site (principal)
CPT/HCPCS: 36415; 80048; 82550; 84436; 84443; 85652; 86617; 86618

== ENCOUNTER 2023-01-01 12:45 | Emergency (ER) | payer MEDICARE, SELFPAY ==
--- NOTE | ~2023-01-01 | CT_ITS ---
EXAMINATION: CT HEAD WITHOUT CONTRAST (STROKE PROTOCOL) CLINICAL INFORMATION: Stroke protocol. Weakness and headache/migraine COMPARISON: None available. TECHNIQUE: Contiguous axial imaging was performed from the skull base to vertex without intravenous administration of contrast. This CT examination was performed using dose optimization techniques as appropriate, variously including the following: *Automated exposure control *Adjustment of mA and/or kV according to patient size (this includes techniques or standardized protocols for targeted exams where dose is matched to indication/reason for exam; i.e. extremities or head) *Use of iterative reconstruction technique DLP: 737 mGy-cm FINDINGS: No acute hemorrhage. No mass effect or herniation. Hinojosa-white differentiation is maintained. White matter is within normal limits for age. VENTRICLES/EXTRA-AXIAL SPACES: No hydrocephalus or extra-axial fluid collections. EXTRACRANIAL STRUCTURES: Normal bones and soft tissues. Visualized paranasal sinuses and mastoids are clear. CT/CT head for stroke IMPRESSION: No acute intracranial pathology. This critical result was discussed with Katelyn Duran at 1355 hours on 01/01/2023. It was ascertained that the content and urgency of the report was understood at the time of direct communication.
[2023-01-01 13:00] VITALS: BP 157/70; BP 169/88; PULSE 110; PULSE 89; RESP 12; O2SAT 97; O2SAT 98; BMI 44.6
--- NOTE | 2023-01-01 13:07 | ECG_ITS ---
Test Reason : WEAKNESS Blood Pressure : / mmHG Vent. Rate : 078 BPM Atrial Rate : 078 BPM P-R Int : 202 ms QRS Dur : 098 ms QT Int : 396 ms P-R-T Axes : 008 036 014 degrees QTc Int : 451 ms Normal sinus rhythm with sinus arrhythmia Minimal voltage criteria for LVH, may be normal variant ( [place] product ) Borderline ECG When compared with ECG of 27-SEP-2022 20:41, Vent. rate has decreased BY 41 BPM Referred By: Juliana Ramirez Electronically Signed By:DEE DEE CHRISTIAN
--- NOTE | 2023-01-01 13:10 | ED_ITS ---
HPI - Headache General Chief Complaint: Headache Stated Complaint: MIGRAINE Time Seen by Provider: 01/01/23 12:46 Source: patient Mode of arrival: ambulatory Limitations: no limitations History of Present Illness HPI Narrative: This is a 72-year-old female history of transaminitis, migraines, aspiration pneumonia presenting to the emergency department with sudden-onset headache at approximately 11:30, patient reports she she has a history of migraines however this felt typical she reports that she suddenly developed a migraine which felt normal however accompanied by left-sided facial numbness/weakness and diffuse body numbness she tells me she does not know if she was feeling numb and weak due to anxiety or because she was actually numb and weak. Patient reports when the symptoms happened she took Ubrevly a new migrane med that was prescribed to her. Symptoms lasted about an hour and have since resolved. She tells me she feels fine at this time just very anxious. Denies headache, vision changes, dizziness, weakness, nausea, vomiting, abdominal pain peer NIH stroke scale 0. Related Data Home Medications Medication Instructions Recorded Confirmed blood sugar diagnostic (FreeStyle 09/28/22 12/04/22 Lite Strips) clonidine HCl 0.1 mg tablet 0.1 mg PO BEDTIME 09/28/22 12/04/22 gabapentin 300 mg capsule 300 mg PO BID 09/28/22 12/04/22 gabapentin 300 mg capsule 600 mg PO BEDTIME 09/28/22 12/04/22 (Neurontin) insulin glargine 100 unit/mL (3 50 unit subcut BID 09/28/22 12/04/22 mL) subcutaneous pen (Lantus Solostar U-100 Insulin) insulin lispro 100 unit/mL See Rx Instructions .Route .COMPLEX 09/28/22 12/04/22 subcutaneous pen levothyroxine 125 mcg tablet 125 mcg PO MOTUWETHFRSA 09/28/22 12/04/22 pen needle, diabetic 32 gauge x 09/28/22 12/04/2205/13 (BD Ultra-Fine Micro Pen Needle) simvastatin 20 mg tablet 20 mg PO BEDTIME 09/28/22 12/04/22 ubrogepant 100 mg tablet (Ubrelvy) 100 mg PO DIRECTED 09/28/22 12/04/22 aspirin 81 mg tablet,delayed 81 mg PO DAILY 10/01/22 12/04/22 release cholecalciferol (vitamin D3) 25 25 mcg PO DAILY 10/01/22 12/04/22 mcg (1,000 unit) tablet levothyroxine 125 mcg tablet 62.5 mcg PO KENNY 10/01/22 12/04/22 melatonin 10 mg tablet 10 mg PO BEDTIME 10/01/22 12/04/22 Allergies Allergy/AdvReac Type Severity Reaction Status Date / Time Iodinated Contrast Media Allergy Severe SEDATION,TA Verified 11/18/22 09:53 [IVP DYE] CHYCARDIA azithromycin Allergy Unknown Hives Verified 11/18/22 09:53 erythromycin base Allergy Unknown HIVES Verified 11/18/22 09:53 [ERYTHROMYCIN BASE] metformin AdvReac Unknown Diarrhea Verified 11/18/22 09:53 Review of Systems Review of Systems: Constitutional : No Fever, No Chills, No Fatigue ENT/Mouth : No sore throat, No Rhinorrhea Eyes: No Eye Pain, No Swelling, No Redness Cardiovascular : No Chest Pain, No SOB, No Dyspnea on Exertion Respiratory : No Cough, No Sputum Gastrointestinal : No Nausea, No Vomiting, No Diarrhea, No abdominal Pain Genitourinary : No Dysuria, No Urinary Frequency, No Hematuria, Musculoskeletal : No joint pain, No Myalgias, No Joint Swelling Skin : No Skin Lesions, No rash Neuro : No Weakness, No Numbness, No Dizziness, positive Headache Psych : No Anxiety/Panic, No Depression All other systems reviewed and are negative Yes all other systems are reviewed and are negative [facility] Past Medical History Attestation statement: The following information was validated with the patient. Source: old records reviewed and nursing notes reviewed Medical History Complicated migraine Diabetes Encephalitis HLD (hyperlipidemia) HTN (hypertension) Hypothyroid Surgical History H/O section Hx of cholecystectomy Hx of left mastectomy Family History Family History (Updated 11/18/22 @ 09:59 by Trudy Joya CMA) Mother Lung cancer Diabetes Depression Daughter Alcohol abuse Father FH: cholecystectomy Social History Social History (Updated 11/18/22 @ 10:00 by Trudy Joya CMA) Household Members: Spouse Housing: House Do you presently have visiting nurse or other home services: No (just finished last week) Alcohol intake: never Patient Tobacco Use Status: Never used Tobacco Smoked in Last 30 Days: No e-Cigarette/Vaping Use: Never Used Second Hand Smoke Exposure: No Use of substances other than those prescribed or required for medical reasons: No Advance Directives: Yes Advance Directives on File: Yes Advance Directives Date on File: 09/28/22 service: No Current occupational status: retired Physical Exam Vital Signs: Vital Signs: Last Vital Signs Pulse 89 01/01/23 13:00 Resp 12 01/01/23 13:00 BP 157/70 H 01/01/23 13:00 Pulse Ox 97 01/01/23 13:00 O2 Del Method Room Air 01/01/23 13:00 BMI result Body Mass Index 44.6 vss Appearance: Alert.? Oriented X3.? No acute distress.? Head: Normocephalic, atraumatic, no step-offs or deformities normal sensation to the face.. Normal sensation to face bilaterally. Eyes: Pupils equal, round and reactive to light.? CVS: Normal heart rate and rhythm.? Pulses normal.? Respiratory: No respiratory distress.? Breath sounds normal.? Abdomen: Soft and nontender.? Skin: Skin warm and dry.? Normal skin color.? Normal skin turgor.? Extremities: No lower extremity edema.? No calf ttp. 5/5 strength to bilateral upper and lower extremities Back: No midline tenderness, no C-spine tenderness, full range of motion, no CVA tenderness bilaterally Neuro: Oriented X 3.? No motor deficit.? No sensory deficit. CN 2-12 intact . Normal [id number], negative Romberg and pronator drift. Normal hand automatic toe laster bilaterally. Course Reevaluation(s) Reevaluation #1: CT head for stroke dry scan negative. Radiologist recommends outpatient MRI no need for emergent if patient does not have stroke-like symptoms, patient stroke scale 0. Concerns for possible TIA. Patient did have a brain MRI done in September of 2022 unremarkable. EKG nonischemic, no ST elevations or inversions concerning for acute ischemia. Labs are pending. Time: 13:56 Reevaluation #2: Patient states she is very anxious, she does not like being in the hospital. I explained to her that labs are still pending, and we would discuss disposition o nce those results Time: 13:57 Reevaluation #3: Patient's CBC within normal limits. Chemistry unremarkable. Total bilirubin an d transaminases elevated however appears to be around patient's baseline. Troponin negative, EKG nonischemic unlikely ACS. History and physical exam not consistent with PE. I re-evaluated patient right neural remains nonfocal, patient states she is feeling much better and is finally able to rest. No numbness at this time. No headache. Educated patient on diagnosis and treatment plan, answered all question, patient verbalizes understanding. At this time patient will be discharged home, advised to return with new or worsening symptoms. Educated on worrisome signs and symptoms and when to return. At this time I feel comfortable discharge home. Prior to discharge this case was discussed with my attending who agrees with diagnosis and treatment plan. Time: 15:24 Medications Administered Discontinued Medications Generic Name Dose Route Start Last Admin Trade Name Freq PRN Reason Stop Dose Admin Lorazepam 0.5 mg 01/01/23 13:56 01/01/23 14:07 Lorazepam 0.5 Mg Tablet PO 01/01/23 13:57 0.5 mg ONCE ONE Administration Medical Decision Making Medical Decision Making [facility] Narrative: 1310 72-year-old female presents with sudden onset today at approximately 11:30, patient reports she has a history of migraines, this felt slightly different because she felt left-sided facial numbness which has since resolved, her headache has also resolved, patient was recently started on Ubrevly Physical exam benign. Neuro nonfocal. NIH stroke scale 0 This is likely complex migraine versus typical migraine vs TIA . Unlikely stroke, posterior stroke, intracranial hemorrhage, dissect. I do not ACS, PE Discuss this case with my attending who recommends CT stroke protocol however does not think patient requires a CTA based off symptoms as they have resolved. Plan basic labs, EKG, stroke protocol. Patient does not want anything for pain she tells me she is just anxious Differential Diagnosis Differential Diagnoses: The differential diagnosis associated with the presentation includes This is likely complex migraine versus typical migraine vs TIA . Unlikely stroke, posterior stroke, intracranial hemorrhage, dissect. I do not ACS, PE Admission/Observation Consideration of admission/observation: Escalation of care including admission/observation considered Consult Healthcare Provider Management of the patient was discussed with: Tank Car Inspector (Attending doctor Nora) Lab Data [facility] Lab Attestation statement: I reviewed the patient's lab results. 01/01/23 13:52 01/01/23 13:52 Labs: Lab Results 01/01/23 01/01/23 01/01/23 Range/Units 13:52 13:52 13:52 WBC 10.0 (4.8-10.8) X10*3/uL RBC 4.48 (4.20-5.50) X10*6/uL Hgb 13.1 (12.0-16.0) g/dl Hct 39.2 (37.0-47.0) % MCV 87.5 (80.0-98.0) fL MCH 29.2 (27.0-33.0) pg MCHC 33.4 (31.0-35.0) g/dl RDW 12.8 (11.0-16.0) % Plt Count 283 (160-400) X10*3/uL MPV 11.2 (9.4-12.3) fL Immature Gran % (Auto) 0.3 (0.0-0.4) % Neut % (Auto) 66.7 (45-73) % Lymph % (Auto) 22.6 (20-40) % [place] % (Auto) 8.2 (2-11) % Eos % (Auto) 1.9 (0-4) % Baso % (Auto) 0.3 (0-2) % Lymph # (Auto) 2.3 (1.2-4.9) X10*3/uL [place] # (Auto) 0.8 (0.1-1.2) X10*3/uL Eos # (Auto) 0.2 (0.0-0.4) X10*3/uL Baso # (Auto) 0.0 (0.0-0.2) X10*3/uL Abs Immat Gran (auto) 0.03 (0.00-0.03) X10*3/uL Absolute Neuts (auto) 6.7 (2.0-8.3) x10*3/uL Absolute Nucleated RBC 0.000 (0.0-0.012) X10*3/uL Nucleated RBC % (auto) 0.0 (0.0-0.2) /100WBC PT 12.3 (11.1-13.3) SEC INR 1.0 (0.9-1.1) Sodium 141 (135-145) mmol/L Potassium 4.2 (3.3-5.1) mmol/L Chloride 106 (96-108) mmol/L Carbon Dioxide 27 (22-29) mmol/L Anion Gap 12 (12-20) BUN 25 H (9-16) mg/dL Creatinine 1.03 (0.5-1.4) mg/dL Estim Creat Clear Calc 64.2 Estimated GFR 53 Random Glucose 93 (60-115) mg/dL Calcium 9.8 (8.4-10.2) mg/dL Magnesium 1.8 (1.6-2.6) mg/dL Total Bilirubin 1.3 H (0.0-1.0) mg/dL AST 46 H (5-31) U/L ALT 57 H (0-31) U/L Alkaline Phosphatase 118 H (39-117) U/L Troponin I High Sens (<3.5-17.0) ng/L Total Protein 7.6 (6.5-8.0) g/dL Albumin 4.0 (3.5-5.0) g/dL 01/01/23 Range/Units 13:52 WBC (4.8-10.8) X10*3/uL RBC (4.20-5.50) X10*6/uL Hgb (12.0-16.0) g/dl Hct (37.0-47.0) % MCV (80.0-98.0) fL MCH (27.0-33.0) pg MCHC (31.0-35.0) g/dl RDW (11.0-16.0) % Plt Count (160-400) X10*3/uL MPV (9.4-12.3) fL Immature Gran % (Auto) (0.0-0.4) % Neut % (Auto) (45-73) % Lymph % (Auto) (20-40) % [place] % (Auto) (2-11) % Eos % (Auto) (0-4) % Baso % (Auto) (0-2) % Lymph # (Auto) (1.2-4.9) X10*3/uL [place] # (Auto) (0.1-1.2) X10*3/uL Eos # (Auto) (0.0-0.4) X10*3/uL Baso # (Auto) (0.0-0.2) X10*3/uL Abs Immat Gran (auto) (0.00-0.03) X10*3/uL Absolute Neuts (auto) (2.0-8.3) x10*3/uL Absolute Nucleated RBC (0.0-0.012) X10*3/uL Nucleated RBC % (auto) (0.0-0.2) /100WBC PT (11.1-13.3) SEC INR (0.9-1.1) Sodium (135-145) mmol/L Potassium (3.3-5.1) mmol/L Chloride (96-108) mmol/L Carbon Dioxide (22-29) mmol/L Anion Gap (12-20) BUN (9-16) mg/dL Creatinine (0.5-1.4) mg/dL Estim Creat Clear Calc Estimated GFR Random Glucose (60-115) mg/dL Calcium (8.4-10.2) mg/dL Magnesium (1.6-2.6) mg/dL Total Bilirubin (0.0-1.0) mg/dL AST (5-31) U/L ALT (0-31) U/L Alkaline Phosphatase (39-117) U/L Troponin I High Sens < 2.7 (<3.5-17.0) ng/L Total Protein (6.5-8.0) g/dL Albumin (3.5-5.0) g/dL Independent Interpretation I performed an independent interpretation of an: EKG (Ventricular rate of 78, MA normal, QRS normal, QT/QTC normal. EKG with normal sinus rhythm with sinus arrhythmia no ST elevations or inversions concerning for ischemia.) and CT Scan ( CT/CT head for stroke IMPRESSION: No acute intracranial pathology.) Radiology Impression Discussion of test interpretation with radiology: I have reviewed the radiologi st's reading. External Record Review External record reviewed: Inpatient record, Office record, Outpatient record, Prior outpatient labs, Prior outpatient radiology, Primary care record and Outside ED record Tests considered The following testing was considered but not selected: Patient asymptomatic, no focal neuro deficits no indication for CTA at this time. Core Measures AMI core measures followed: Yes Measure exclusions: not indicated Critical Care Time Critical Care Time Critical Care Time: Yes Total Critical Care Time: 45 Attestation: I attest to this time spent taking care of the patient, obtaining history, physical, reviewing labs, imaging, speaking to my attending, speaking to specialist. Discharge Plan Discharge Clinical Impression: Migraine Patient Disposition: Home, Self-Care Instructions: Migraine Headache (ED) Additional Instructions: Take your medications as prescribed. If you were prescribed antibiotics today, it is important that you take your medication to their entirety, do not skip any doses, do not finish them early. Follow-up with your primary care provider this week. Follow up with neurology Return to the emergency department with new or worsening symptoms. Such as fevers, chills, chest pain, shortness of breath, nausea, vomiting, dizziness, headache, vision changes, lethargy In case of emergency call 911 CT/CT head for stroke IMPRESSION: No acute intracranial pathology. Your labs, cardiac enzymes and EKG were reassuring. Prescriptions: No Action clonidine HCl 0.1 mg tablet 0.1 mg PO BEDTIME (DME) FreeStyle Lite Strips Strip 1 strip MISCELLANEOUS TID simvastatin 20 mg tablet 20 mg PO BEDTIME levothyroxine 125 mcg tablet 125 mcg PO MOTUWETHFRSA gabapentin [Neurontin] 300 mg capsule 600 mg PO BEDTIME Rx Instructions: 2x daily and twice at bedtime insulin lispro 100 unit/mL insulin pen See Rx Instructions .ROUTE .COMPLEX Rx Instructions: inject subq 3x daily with meals per sliding scale 80-99 inject 31 units 100-149 inject 33 units 150-199 inject 37 units 200-249 inject 41 units 250-299 inject 43 units 300-349 inject 45 units 350-399 inject 47 units 400 and higher: inject 49 units and call insulin glargine [Lantus Solostar U-100 Insulin] 100 unit/mL (3 mL) insulin pen 50 unit subcut BID Rx Instructions: inject 50 units subq in the morning (8am) and 50 units at night (8pm) (DME) pen needle, diabetic [BD Ultra-Fine Micro Pen Needle] 32 gauge x 1/4 needle MISCELLANEOUS Ubrelvy 100 mg tablet 100 mg PO DIRECTED Rx Instructions: take at onset of migraine. MRX1 after 2 hours. Do not exceed 2 doses in 24 hours gabapentin 300 mg capsule 300 mg PO BID Patient Comments: 6am and 2pm aspirin 81 mg Tablet,Delayed Release (Dr/Ec) 81 mg PO DAILY levothyroxine 125 mcg tablet 62.5 mcg PO KENNY cholecalciferol (vitamin D3) 25 mcg (1,000 unit) Tablet 25 mcg PO DAILY melatonin 10 mg Tablet 10 mg PO BEDTIME Referrals: [facility] [Provider Group] - 2 days Physician,Unknown J [Primary Care Provider] - 2 days
[2023-01-01 13:55] LABS: MANUAL DIFF FLAG NO
[2023-01-01 13:57] LABS: Basophils Percent Auto 0.3 % (0-2); Eosinophils Absolute Auto 0.2 X10*3/uL (0.0-0.4); Eosinophils Percent Auto 1.9 % (0-4); Hematocrit 39.2 % (37.0-47.0); Hemoglobin 13.1 g/dl (12.0-16.0); Imm Gran Abs Auto 0.03 X10*3/uL (0.00-0.03); Imm Gran Pct Auto 0.3 % (0.0-0.4); Lymphocytes Absolute Auto 2.3 X10*3/uL (1.2-4.9); Lymphocytes Percent Auto 22.6 % (20-40); Mean Corpuscular HGB Conc 33.4 g/dl (31.0-35.0); Mean Corpuscular Hemoglobin 29.2 pg (27.0-33.0); Mean Corpuscular Volume 87.5 fL (80.0-98.0); Mean Platelet Volume 11.2 fL (9.4-12.3); Monocytes Absolute Auto 0.8 X10*3/uL (0.1-1.2); Monocytes Percent Auto 8.2 % (2-11); Neutrophils Absolute Auto 6.7 x10*3/uL (2.0-8.3); Neutrophils Percent Auto 66.7 % (45-73); Platelet Count 283 X10*3/uL (160-400); Red Blood Count 4.48 X10*6/uL (4.20-5.50); Red Cell Distribution Width 12.8 % (11.0-16.0)
[2023-01-01] MEDS: LORazepam 0.5 MG TABLET PO (14:07)
[2023-01-01 14:12] LABS: Prothrombin Time 12.3 SEC (11.1-13.3)
[2023-01-01 14:14] LABS: Alanine Aminotransferase 57 U/L (0-31); Alkaline Phosphatase 118 U/L (39-117); Anion Gap 12 (12-20); Aspartate Amino Transferase 46 U/L (5-31); Bilirubin Total 1.3 mg/dL (0.0-1.0); Blood Urea Nitrogen 25 mg/dL (9-16); Calcium 9.8 mg/dL (8.4-10.2); Carbon Dioxide 27 mmol/L (22-29); Chloride 106 mmol/L (96-108); Creatinine Clr Calc Pharmacy 64.2; Estimated Glomerular Filt Rate 53; Glucose Random 93 mg/dL (60-115); Magnesium 1.8 mg/dL (1.6-2.6); Potassium 4.2 mmol/L (3.3-5.1); Sodium 141 mmol/L (135-145); Total Protein 7.6 g/dL (6.5-8.0)
[2023-01-01 14:27] LABS: Troponin-I High Sensitivity < 2.7 ng/L (<3.5-17.0)
== END 2023-01-01 16:03 | disposition home or self-care (01) ==
PROVIDERS: Physician Assistant; Emergency Provider Emergency Medicine Emergency Medical Services
DX: G43.909 Migraine, unspecified, not intractable, without status migrainosus (principal); I49.8 Other specified cardiac arrhythmias; Z79.899 Other long term (current) drug therapy
CPT/HCPCS: 36415; 70450; 80053; 83735; 84484; 85025; 85610; 93005; 99284

== ENCOUNTER 2023-01-06 15:42 | Outpatient (AMB) | payer MEDICARE, SELFPAY ==
--- NOTE | 2023-01-06 15:48 | A.OFFVIS_ITS ---
Intake Vital Signs 01/06/23 15:54 BP 124/72 Blood Pressure Location Rt brachial Position Sitting Intake Visit Reasons: 8wk follow up complex migraines - Confirmed Intake Note: Patient presents for 8 week follow up complex migraines. Patient states I was in the ER on january 01 with a very bad migraine,I had numbness on my cheek left arm and foot I also had trouble walking. they gave me an ativan. Allergies Iodinated Contrast Media [IVP DYE] Allergy (Severe, Verified 01/06/23 15:52) SEDATION,TACHYCARDIA azithromycin Allergy (Unknown, Verified 01/06/23 15:52) Hives erythromycin base [ERYTHROMYCIN BASE] Allergy (Unknown, Verified 01/06/23 15:52) HIVES metformin Adverse Reaction (Unknown, Verified 01/06/23 15:52) Diarrhea Medication List - Last Reconciled 01/06/23 by ANTHONY Almonte aspirin 81 mg PO DAILY blood sugar diagnostic (FreeStyle Lite Strips) cholecalciferol (vitamin D3) 25 mcg PO DAILY clonidine HCl 0.1 mg PO BEDTIME gabapentin (Neurontin) 600 mg PO BEDTIME gabapentin 300 mg PO BID insulin glargine (Lantus Solostar U-100 Insulin) 50 units subcut BID insulin lispro inject subq 3x daily with meals per sliding scale 80-99 inject 31 units 100-149 inject 33 units 150-199 inject 37 units 200-249 inject 41 units 250-299 inject 43 units 300-349 inject 45 units 350-399 inject 47 units 400 and higher: inject 49 units and call levothyroxine 125 mcg PO MOTUWETHFRSA levothyroxine 62.5 mcg PO KENNY melatonin 10 mg PO BEDTIME pen needle, diabetic (BD Ultra-Fine Micro Pen Needle) simvastatin 20 mg PO BEDTIME ubrogepant (Ubrelvy) 100 mg PO DIRECTED HPI HPI Comments History of Present Illness Details 72-yr-old female presents for f/u visit, accompanied by her . Pt reports she had another more severe migraine attack this last week, where she had her typical left sided symptoms w/o fever or LOC. She was able to take the Ubrlevy, and still wnet to the hospital. In the ER, was given Lorazepam. The attack slowly resolved within 1.5 hrs. Pt was discharged home w/o incident. Otherwise, she has at least 4 other mod migraine attacks per month since last visit. Today, she notes that in the days before her last migraine attack in October, she had been up for days, she just could not sleep, felt fearful, and was pacing constantly. This has happened prior to other more severe attacks as well. However, more recently, she has been sleeping better. She has not been able to tolerate her CPAP machine. Her legs feel achey. [facility] Medical History Complicated migraine Diabetes Encephalitis HLD (hyperlipidemia) HTN (hypertension) Hypothyroid Surgical History H/O section Hx of cholecystectomy Hx of left mastectomy Family History Mother Lung cancer Diabetes Depression Daughter Alcohol abuse Father FH: cholecystectomy Social History Household Members: Spouse Housing: House Do you presently have visiting nurse or other home services: No (just finished last week) Alcohol intake: never Patient Tobacco Use Status: Never used Tobacco e-Cigarette/Vaping Use: Never Used Second Hand Smoke Exposure: No Advance Directives Date on File: 09/28/22 service: No Current occupational status: retired Review of Systems Const All systems reviewed & are unremarkable except as noted in HPI and below Physical Exam Vital Signs: Last Vital Signs BP 124/72 01/06/23 15:54 Const General: cooperative and no acute distress Orientation/consciousness: patient oriented x3 HEENT Head: Yes normocephalic Resp Effort & Inspection: normal respiratory effort and able to speak in complete sentences Neuro General: patient oriented x3 and CN's II-XI intact bilaterally Cognition (Neuro): normal cognition Gait exam (Neuro): Assisted gait required Gait assisted method: walking stick Motor exam (neuro): 5/5 motor strength present throughout Psych Appearance: grossly normal Mental Status: mental status grossly normal Speech and movement: Normal speech and movement present Affect: normal affect Attitude: cooperative Assessment & Plan Assessment & Plan (1) Myalgia: Code(s): M79.10 - Myalgia, unspecified site (2) Migraine with aura: Comment: vs episodes of malignant catatonia- elevated CK > 2000 during August hosp admission, however attack responded to Imitrex and Lorazepam. Code(s): G43.109 - Migraine with aura, not intractable, without status migrainosus Plan Pt advised to start Ajovy for migraine prevention- as pt can have severe migraine which prompts ER eval. Pt may continue Ubrelvy prn for now- as I would avoid triptans d/t variable BP/HTN. Trial Lorazepam 0.5mg bid prn- may take at onset of migraine attack w/ Ubrelvy. Will repeat CK level. f/u in 3 months or sooner prn. Orders: Orders Creatine Kinase Total 01/06/23 M79.10 - Myalgia, unspecified site Medications: New fremanezumab-vfrm (Ajovy) administer 225mg sc q month 225 mg (1.5 mL) subcut ONCE 30 days 1.5 mL 6RF lorazepam take with Ubrelvy 0.5 mg PO BID 30 days PRN 10 tabs 3RF anxiety and migraine attack Coding Level of Care Code Est Pt Level 4 (10794) Diagnoses Myalgia M79.10 Migraine with aura G43.109
[2023-01-06 15:54] VITALS: BP 124/72
== END 2023-01-06 16:44 | disposition home or self-care (01) ==
PROVIDERS: PCP Internal Medicine; Visit Provider Nurse Practitioner Family
DX: M79.10 Myalgia, unspecified site (principal); G43.109 Migraine with aura, not intractable, without status migrainosus
CPT/HCPCS: 99214

== ENCOUNTER → 2023-01-06 15:42 | Outpatient (BNVA) | payer MEDICARE, SELFPAY | PROVIDERS: PCP Internal Medicine; Visit Provider Nurse Practitioner Family | DX: G43.109 Migraine with aura, not intractable, without status migrainosus (principal); M79.10 Myalgia, unspecified site | CPT/HCPCS: 99212 ==

== ENCOUNTER 2023-01-20 08:48 | Outpatient (AMB) | payer MEDICARE, SELFPAY ==
[2023-01-20 09:16] VITALS: BP 116/60; PULSE 79; O2SAT 96; BMI 43.5
--- NOTE | 2023-01-20 09:16 | MHC.OFFVIS ---
Intake Vital Signs 01/20/23 09:16 Height 5 ft 4 in Weight 253 lb 6 oz BMI 43.5 BP 116/60 Blood Pressure Location Rt brachial Position Sitting Pulse 79 Pulse Source Pulse Oximeter Pulse Oximetry (%) 96 Oxygen Delivery Method Room Air Intake Visit Reasons: Injection Training Intake Note: Pt presents in office for injection training. Member Services Representative Required: No Allergies Iodinated Contrast Media [IVP DYE] Allergy (Severe, Verified 01/20/23 09:23) SEDATION,TACHYCARDIA azithromycin Allergy (Unknown, Verified 01/20/23 09:23) Hives erythromycin base [ERYTHROMYCIN BASE] Allergy (Unknown, Verified 01/20/23 09:23) HIVES metformin Adverse Reaction (Unknown, Verified 01/20/23 09:23) Diarrhea HPI HPI Comments History of Present Illness Details 72 y/o female patient presents for Ajovy injection training. Ajovy 225 mg/1.5ml injection sample provided. Lot #[id number] and Exp Mar 2025 Education regarding injection and side effects provided. Ajovy 225 mg/1.5ml injection administered on LLQ. Pt tolerated the injection well. PFSH Medical History Encephalitis Hypothyroid HTN (hypertension) HLD (hyperlipidemia) Diabetes Complicated migraine Surgical History Hx of left mastectomy Hx of cholecystectomy H/O section Family History Mother Lung cancer Diabetes Depression Daughter Alcohol abuse Father FH: cholecystectomy Social History (Updated 01/20/23 @ 09:27 by Kizzy Gerardo CMA) Household Members: Spouse Housing: House Do you presently have visiting nurse or other home services: No (just finished last week) Alcohol intake: never Patient Tobacco Use Status: Never used Tobacco e-Cigarette/Vaping Use: Never Used Second Hand Smoke Exposure: No Use of substances other than those prescribed or required for medical reasons: No Advance Directives Date on File: 09/28/22 service: No Current occupational status: retired Physical Exam Vital Signs: Last Vital Signs Pulse 79 01/20/23 09:16 BP 116/60 01/20/23 09:16 Pulse Ox 96 01/20/23 09:16 Oxygen Delivery Method Room Air 01/20/23 09:16 BMI result Body Mass Index 43.5 Assessment & Plan Assessment & Plan (1) Migraine with aura: Comment: vs episodes of malignant catatonia- elevated CK > 1999 during August hosp admission, however attack responded to Imitrex and Lorazepam. Code(s): G43.109 - Migraine with aura, not intractable, without status migrainosus Plan Follow up in clinic as scheduled or prn with concerns. Coding Level of Care Code Est Pt Level 1 (06931) Diagnoses Migraine with aura G43.109
== END 2023-01-20 09:58 | disposition home or self-care (01) ==
PROVIDERS: PCP Internal Medicine
DX: G43.109 Migraine with aura, not intractable, without status migrainosus (principal)

== ENCOUNTER → 2023-01-20 08:48 | Outpatient (BNVA) | payer MEDICARE, SELFPAY | PROVIDERS: PCP Internal Medicine | DX: G43.109 Migraine with aura, not intractable, without status migrainosus (principal) | CPT/HCPCS: 99212 ==

== ENCOUNTER 2023-02-14 18:17 | Emergency (ER) | payer MEDICARE, SELFPAY ==
[2023-02-14 18:36] VITALS: BP 161/61; PULSE 101; RESP 23; O2SAT 98; BMI 40.7
[2023-02-14 18:43] LABS: Glucose, Whole Blood 97 mg/dL (60-115)
[2023-02-14 18:50] LABS: MANUAL DIFF FLAG NO
[2023-02-14 18:53] LABS: Basophils Percent Auto 0.4 % (0-2); Eosinophils Absolute Auto 0.2 X10*3/uL (0.0-0.4); Eosinophils Percent Auto 1.5 % (0-4); Hematocrit 39.4 % (37.0-47.0); Hemoglobin 13.4 g/dl (12.0-16.0); Imm Gran Abs Auto 0.06 X10*3/uL (0.00-0.03); Imm Gran Pct Auto 0.5 % (0.0-0.4); Lymphocytes Absolute Auto 3.2 X10*3/uL (1.2-4.9); Mean Corpuscular Hemoglobin 29.5 pg (27.0-33.0); Mean Corpuscular Volume 86.8 fL (80.0-98.0); Mean Platelet Volume 11.2 fL (9.4-12.3); Monocytes Percent Auto 8.5 % (2-11); Neutrophils Absolute Auto 6.9 x10*3/uL (2.0-8.3); Neutrophils Percent Auto 61.1 % (45-73); Platelet Count 270 X10*3/uL (160-400); Red Blood Count 4.54 X10*6/uL (4.20-5.50); Red Cell Distribution Width 12.9 % (11.0-16.0); White Blood Count 11.3 X10*3/uL (4.8-10.8)
[2023-02-14 19:15] LABS: Alanine Aminotransferase 63 U/L (0-31); Albumin Level 3.9 g/dL (3.5-5.0); Alkaline Phosphatase 116 U/L (39-117); Anion Gap 18 (12-20); Aspartate Amino Transferase 56 U/L (5-31); Bilirubin Total 1.1 mg/dL (0.0-1.0); Blood Urea Nitrogen 25 mg/dL (9-16); Calcium 9.7 mg/dL (8.4-10.2); Carbon Dioxide 21 mmol/L (22-29); Chloride 108 mmol/L (96-108); Creatinine Clr Calc Pharmacy 58.4; Estimated Glomerular Filt Rate 47; Glucose Random 95 mg/dL (60-115); Potassium 3.5 mmol/L (3.3-5.1); Sodium 143 mmol/L (135-145); Total Protein 7.5 g/dL (6.5-8.0)
[2023-02-14 19:17] VITALS: PULSE 99; RESP 18; TEMP 37.3; O2SAT 99
--- NOTE | 2023-02-14 19:34 | PC.NURSE ---
pt continues to be agitated on and off, significant other at bedside who states that every now and then she gets the migraines that cause her to be extremely agitated if she doesnt get her medications. Of note, patient was incontinent of urine upon arrival and there was a strong foul scent similar to a UTI. Per sig other, patient has no known hx of UTI
--- NOTE | 2023-02-14 19:54 | ED.GENADULT ---
HPI - General Adult General Chief complaint: Altered Mental Status Stated complaint: AMS Time Seen by Provider: 02/14/23 19:42 History of Present Illness HPI narrative: Patient with history of intractable migraine with aura with catatonia on Ajovy injection for last 2 months and on Ubrelvy tablets with increased anxiety was apparently good earlier today went to for shopping with her daughter started having right-sided migraine headache similar that the past with increased at catatonia which lasted until she reached home in 15 minutes patient very emotional on arrival headache is gone no nausea no vomiting crying on arrival very emotional Related Data Home Medications Medication Instructions Recorded Confirmed blood sugar diagnostic (FreeStyle 09/28/22 01/06/23 Lite Strips) clonidine HCl 0.1 mg tablet 0.1 mg PO BEDTIME 09/28/22 01/06/23 gabapentin 300 mg capsule 300 mg PO BID 09/28/22 01/06/23 gabapentin 300 mg capsule 600 mg PO BEDTIME 09/28/22 01/06/23 (Neurontin) insulin glargine 100 unit/mL (3 50 unit subcut BID 09/28/22 01/06/23 mL) subcutaneous pen (Lantus Solostar U-100 Insulin) insulin lispro 100 unit/mL See Rx Instructions .Route .COMPLEX 09/28/22 01/06/23 subcutaneous pen levothyroxine 125 mcg tablet 125 mcg PO MOTUWETHFRSA 09/28/22 01/06/23 pen needle, diabetic 32 gauge x 09/28/22 01/06/23 1/ (BD Ultra-Fine Micro Pen Needle) simvastatin 20 mg tablet 20 mg PO BEDTIME 09/28/22 01/06/23 ubrogepant 100 mg tablet (Ubrelvy) 100 mg PO DIRECTED 09/28/22 01/06/23 aspirin 81 mg tablet,delayed 81 mg PO DAILY 10/01/22 01/06/23 release cholecalciferol (vitamin D3) 25 25 mcg PO DAILY 10/01/22 01/06/23 mcg (1,000 unit) tablet levothyroxine 125 mcg tablet 62.5 mcg PO KENNY 10/01/22 01/06/23 melatonin 10 mg tablet 10 mg PO BEDTIME 10/01/22 01/06/23 Previous Rx's Medication Instructions Recorded fremanezumab-vfrm 225 mg/1.5 mL 225 mg (1.5 mL) subcut ONCE 30 01/06/23 subcutaneous auto-injector (Ajovy) days #1.5 mL lorazepam 0.5 mg tablet 0.5 mg PO BID PRN anxiety and 01/06/23 migraine attack 30 days #10 tabs lorazepam 0.5 mg tablet (Ativan) 0.5 mg PO BID PRN anxiety #20 tabs 02/14/23 Allergies Allergy/AdvReac Type Severity Reaction Status Date / Time Iodinated Contrast Media Allergy Severe SEDATION,TA Verified 01/20/23 09:23 [IVP DYE] CHYCARDIA azithromycin Allergy Unknown Hives Verified 01/20/23 09:23 erythromycin base Allergy Unknown HIVES Verified 01/20/23 09:23 [ERYTHROMYCIN BASE] metformin AdvReac Unknown Diarrhea Verified 01/20/23 09:23 Review of Systems Review of Systems: Yes all other systems are reviewed and are negative [facility] Past Medical History Medical History Encephalitis Hypothyroid HTN (hypertension) HLD (hyperlipidemia) Diabetes Complicated migraine Surgical History Hx of left mastectomy Hx of cholecystectomy H/O section Family History Family History Mother Lung cancer Diabetes Depression Daughter Alcohol abuse Father FH: cholecystectomy Social History Social History Household Members: Spouse Housing: House Do you presently have visiting nurse or other home services: No (just finished last week) Alcohol intake: never Patient Tobacco Use Status: Never used Tobacco Smoked in Last 30 Days: No e-Cigarette/Vaping Use: Never Used Second Hand Smoke Exposure: No Use of substances other than those prescribed or required for medical reasons: No Advance Directives: Yes Advance Directives on File: Yes Advance Directives Date on File: 09/28/22 service: No Current occupational status: retired Physical Exam ED Vital Signs: Vital Signs - 24 hr 02/14/23 18:36 02/14/23 19:17 02/14/23 20:28 Temperature 99.2 F 98.3 F Pulse Rate 101 H 99 87 Respiratory Rate 23 H 18 14 Blood Pressure 161/61 H 165/61 H Pulse Oximetry 98 99 97 Oxygen Delivery Method Room Air Room Air Room Air 02/14/23 22:28 Temperature 99.5 F Pulse Rate 99 Respiratory Rate 16 Blood Pressure 180/58 H Pulse Oximetry Oxygen Delivery Method BMI result Body Mass Index 40.7 Appearance: Alert. Oriented X3. Very emotional crying Eyes: PERRLA, No Nystagmus ENT: Pharynx normal. Oral Mucosa moist Neck: Normal inspection. Neck supple. CVS: Normal heart rate and rhythm. Pulses normal. Respiratory: No respiratory distress. Equal air entry bilateral, no wheezing/rales/rhonchi Abdomen: Soft and nontender. Bowel sounds are present, no mass palpable, no CVA tenderness Skin: Skin warm and dry. Normal skin color. Normal skin turgor. Extremities: No lower extremity edema. No calf tenderness Neuro: Oriented X 3. No motor deficit. No sensory deficit.No cerebellar signs , cranial nerves II-XII intact Medications Administered Discontinued Medications Generic Name Dose Route Start Last Admin Trade Name Freq PRN Reason Stop Dose Admin Acetaminophen 650 mg 02/14/23 20:31 02/14/23 20:48 Acetaminophen 325 Mg Tablet PO 02/14/23 20:32 650 mg ONCE ONE Administration Lorazepam 1 mg 02/14/23 19:43 02/14/23 19:50 Lorazepam 2 Mg/Ml Vial IVPUSH 02/14/23 19:44 1 mg ONCE ONE Administration Medical Decision Making Medical Decision Making [facility] Narrative: Patient has stable labs with history of migraine headache with catatonia came with similar episode increased anxiety has in the past responded to IV Ativan will discharge patient home on Ativan p.o. for anxiety/panic attack advised to continue to take her medication for migraine headache labs are stable 0030; patient too lethargic to ambulate requesting to stay in the ER till morning and re-evaluate. We will keep the patient in the ER for observation to am Differential Diagnosis Differential Diagnoses: The differential diagnosis associated with the presentation includes Migraine headache/anxiety/panic attack/metabolic encephalopathy Lab Data [facility] Lab Attestation statement: I reviewed the patient's lab results. 02/14/23 18:47 02/14/23 18:47 Labs: Lab Results 02/14/23 02/14/23 02/14/23 Range/Units 18:40 18:47 20:28 WBC 11.3 H (4.8-10.8) X10*3/uL RBC 4.54 (4.20-5.50) X10*6/uL Hgb 13.4 (12.0-16.0) g/dl Hct 39.4 (37.0-47.0) % MCV 86.8 (80.0-98.0) fL MCH 29.5 (27.0-33.0) pg MCHC 34.0 (31.0-35.0) g/dl RDW 12.9 (11.0-16.0) % Plt Count 270 (160-400) X10*3/uL MPV 11.2 (9.4-12.3) fL Immature Gran % (Auto) 0.5 H (0.0-0.4) % Neut % (Auto) 61.1 (45-73) % Lymph % (Auto) 28.0 (20-40) % [place] % (Auto) 8.5 (2-11) % Eos % (Auto) 1.5 (0-4) % Baso % (Auto) 0.4 (0-2) % Lymph # (Auto) 3.2 (1.2-4.9) X10*3/uL [place] # (Auto) 1.0 (0.1-1.2) X10*3/uL Eos # (Auto) 0.2 (0.0-0.4) X10*3/uL Baso # (Auto) 0.0 (0.0-0.2) X10*3/uL Abs Immat Gran (auto) 0.06 H (0.00-0.03) X10*3/uL Absolute Neuts (auto) 6.9 (2.0-8.3) x10*3/uL Absolute Nucleated RBC 0.000 (0.0-0.012) X10*3/uL Nucleated RBC % (auto) 0.0 (0.0-0.2) /100WBC Sodium 143 (135-145) mmol/L Potassium 3.5 (3.3-5.1) mmol/L Chloride 108 (96-108) mmol/L Carbon Dioxide 21 L (22-29) mmol/L Anion Gap 18 (12-20) BUN 25 H (9-16) mg/dL Creatinine 1.15 (0.5-1.4) mg/dL Estim Creat Clear Calc 58.4 Estimated GFR 47 POC Glucose 97 (60-115) mg/dL Random Glucose 95 (60-115) mg/dL Calcium 9.7 (8.4-10.2) mg/dL Total Bilirubin 1.1 H (0.0-1.0) mg/dL AST 56 H (5-31) U/L ALT 63 H (0-31) U/L Alkaline Phosphatase 116 (39-117) U/L Total Protein 7.5 (6.5-8.0) g/dL Albumin 3.9 (3.5-5.0) g/dL Urine Color Yellow Urine Appearance Clear Urine pH 5.0 (5.0-9.0) Ur Specific [place] 1.025 (1.005-1.025) Urine Protein Trace (Neg-Trace) mg/dL Urine Glucose (UA) Negative (Negative) mg/dL Urine Ketones Negative (Negative) mg/dL Urine Blood Negative (Negative) Urine Nitrite Negative (Negative) Ur Leukocyte Esterase Negative (Negative) 02/14/23 02/15/23 Range/Units 22:48 00:15 WBC (4.8-10.8) X10*3/uL RBC (4.20-5.50) X10*6/uL Hgb (12.0-16.0) g/dl Hct (37.0-47.0) % MCV (80.0-98.0) fL MCH (27.0-33.0) pg MCHC (31.0-35.0) g/dl RDW (11.0-16.0) % Plt Count (160-400) X10*3/uL MPV (9.4-12.3) fL Immature Gran % (Auto) (0.0-0.4) % Neut % (Auto) (45-73) % Lymph % (Auto) (20-40) % [place] % (Auto) (2-11) % Eos % (Auto) (0-4) % Baso % (Auto) (0-2) % Lymph # (Auto) (1.2-4.9) X10*3/uL [place] # (Auto) (0.1-1.2) X10*3/uL Eos # (Auto) (0.0-0.4) X10*3/uL Baso # (Auto) (0.0-0.2) X10*3/uL Abs Immat Gran (auto) (0.00-0.03) X10*3/uL Absolute Neuts (auto) (2.0-8.3) x10*3/uL Absolute Nucleated RBC (0.0-0.012) X10*3/uL Nucleated RBC % (auto) (0.0-0.2) /100WBC Sodium (135-145) mmol/L Potassium (3.3-5.1) mmol/L Chloride (96-108) mmol/L Carbon Dioxide (22-29) mmol/L Anion Gap (12-20) BUN (9-16) mg/dL Creatinine (0.5-1.4) mg/dL Estim Creat Clear Calc Estimated GFR POC Glucose 74 116 H (60-115) mg/dL Random Glucose (60-115) mg/dL Calcium (8.4-10.2) mg/dL Total Bilirubin (0.0-1.0) mg/dL AST (5-31) U/L ALT (0-31) U/L Alkaline Phosphatase (39-117) U/L Total Protein (6.5-8.0) g/dL Albumin (3.5-5.0) g/dL Urine Color Urine Appearance Urine pH (5.0-9.0) Ur Specific [place] (1.005-1.025) Urine Protein (Neg-Trace) mg/dL Urine Glucose (UA) (Negative) mg/dL Urine Ketones (Negative) mg/dL Urine Blood (Negative) Urine Nitrite (Negative) Ur Leukocyte Esterase (Negative) Discharge Plan Discharge Clinical Impression: Migraine with aura, Anxiety Patient Disposition: Home, Self-Care Instructions: Migraine Headache (ED), Anxiety (ED) Additional Instructions: Continue medication as prescribed by our neurologist Take Ativan for anxiety/panic attack as needed Prescriptions: New lorazepam [Ativan] 0.5 mg tablet 0.5 mg PO BID PRN (Reason: anxiety) Qty: 20 0RF No Action clonidine HCl 0.1 mg tablet 0.1 mg PO BEDTIME (DME) FreeStyle Lite Strips Strip 1 strip MISCELLANEOUS TID simvastatin 20 mg tablet 20 mg PO BEDTIME levothyroxine 125 mcg tablet 125 mcg PO MOTUWETHFRSA gabapentin [Neurontin] 300 mg capsule 600 mg PO BEDTIME Rx Instructions: 2x daily and twice at bedtime insulin lispro 100 unit/mL insulin pen See Rx Instructions .ROUTE .COMPLEX Rx Instructions: inject subq 3x daily with meals per sliding scale 80-99 inject 31 units 100-149 inject 33 units 150-199 inject 37 units 200-249 inject 41 units 250-299 inject 43 units 300-349 inject 45 units 350-399 inject 47 units 400 and higher: inject 49 units and call MD insulin glargine [Lantus Solostar U-100 Insulin] 100 unit/mL (3 mL) insulin pen 50 unit subcut BID Rx Instructions: inject 50 units subq in the morning (8am) and 50 units at night (8pm) (DME) pen needle, diabetic [BD Ultra-Fine Micro Pen Needle] 32 gauge x 1/4 needle MISCELLANEOUS Ubrelvy 100 mg tablet 100 mg PO DIRECTED Rx Instructions: take at onset of migraine. MRX1 after 2 hours. Do not exceed 2 doses in 24 hours gabapentin 300 mg capsule 300 mg PO BID Patient Comments: 8am and 2pm aspirin 81 mg Tablet,Delayed Release (Dr/Ec) 81 mg PO DAILY levothyroxine 125 mcg tablet 62.5 mcg PO KENNY cholecalciferol (vitamin D3) 25 mcg (1,000 unit) Tablet 25 mcg PO DAILY melatonin 10 mg Tablet 10 mg PO BEDTIME Ajovy Autoinjector 225 mg/1.5 mL auto-injector 225 mg subcut ONCE 30 Days Qty: 1.5 6RF Rx Instructions: administer 225mg sc q month lorazepam 0.5 mg tablet 0.5 mg PO BID PRN (Reason: anxiety and migraine attack) 30 Days Qty: 10 3RF Rx Instructions: take with Ubrelvy
[2023-02-14 20:28] VITALS: BP 165/61; PULSE 87; RESP 14; TEMP 36.8; O2SAT 97
[2023-02-14 20:36] LABS: Appearance Urine Clear; Color Urine Yellow; Glucose Urine UA Negative (Negative); Leukocyte Esterase Urine Negative (Negative); Nitrite Urine Negative (Negative); Specific Gravity - Urine 1.025 (1.005-1.025); Urine Blood Negative (Negative); Urine Ketones Negative (Negative); Urine Protein Trace mg/dL (Neg-Trace)
[2023-02-14 22:28] VITALS: BP 180/58; PULSE 99; RESP 16; TEMP 37.5
--- NOTE | 2023-02-14 22:42 | PC.NURSE ---
pt was able to ambulate with steady gait around room with no assistance from this RN. Pt is tearful, stating I cannot do this as she walks around the room. Pts significant other states he feels as though he cannot take her home tonight, he feels her gait is not her baseline. Pt verbalizes wanting to go home but not feeling like she can stand. This RN explained that the patient was able to ambulate with strong gait with no issues. at bedside, states we will re-evaluate in am
[2023-02-14 22:52] LABS: Glucose, Whole Blood 74 mg/dL (60-115)
--- NOTE | 2023-02-14 22:55 | PC.NURSE ---
this RN took pts POC, result of 74, had patient drink two cups of apple juice
[2023-02-15 00:19] LABS: Glucose, Whole Blood 116 mg/dL (60-115)
--- NOTE | 2023-02-15 00:53 | PC.NURSE ---
Significant other requesting to be updated if things change: Chris [phone]
--- NOTE | 2023-02-15 01:59 | PC.NURSE ---
pt sleeping, respirations even and unlabored, skin pwd, no apparent distress at this time
== END 2023-02-15 06:07 | disposition home or self-care (01) ==
PROVIDERS: Emergency Provider Internal Medicine
DX: G43.109 Migraine with aura, not intractable, without status migrainosus (principal); F41.1 Generalized anxiety disorder; F43.0 Acute stress reaction; Z79.899 Other long term (current) drug therapy
CPT/HCPCS: 36415; 80053; 81003; 82947; 85025; 96374; 99284; J2060

== ENCOUNTER 2023-04-14 11:03 | Outpatient (AMB) | payer MEDICARE, SELFPAY ==
[2023-04-14 11:12] VITALS: BP 140/70; PULSE 84; BMI 42.8
--- NOTE | 2023-04-14 11:12 | HO.NEPHOV_ITS ---
HPI HPI Comments History of Present Illness Details I had the privilege of seeing Charissa in follow-up of her mild chronic kidney disease and hypertension. She has been having right flank/back pain. Her blood sugar control remains suboptimal. She is gaining a lot a weight. She does not have any fever, suprapubic pain, dysuria, hematuria, nausea, vomiting, fever, chills or rigors. She feels her thyroid function is under control her on levothyroxine. She is tolerating statins. She does not have any chest pain, shortness of breath, proximal nocturnal dyspnea, orthopnea, pedal edema, orthostatic symptoms, new skin rashes, headache, joint swellings. She has not been taking any nonsteroidal anti-inflammatory medications and tries to keep up with good hydration. She has history of breast cancer remotely. She has lung nodule which is followed up by Dr. De Leon. [facility] Medical History (Updated 04/15/23 @ 07:01 by Corey Lund MD) Encephalitis Hypothyroid HTN (hypertension) HLD (hyperlipidemia) Diabetes Complicated migraine Surgical History Hx of left mastectomy Hx of cholecystectomy H/O section Family History Mother Lung cancer Diabetes Depression Daughter Alcohol abuse Father FH: cholecystectomy Social History Household Members: Spouse Housing: House Do you presently have visiting nurse or other home services: No (just finished last week) Alcohol intake: never 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 Patient Tobacco Use Status: Never used Tobacco e-Cigarette/Vaping Use: Never Used Second Hand Smoke Exposure: No Advance Directives Date on File: 09/28/22 service: No Current occupational status: retired Vital Signs 04/14/23 11:12 Height 5 ft 6 in Weight 265 lb BMI 42.8 BP 140/70 H Blood Pressure Location Rt brachial Position Sitting Pulse 84 Pulse Source Pulse Oximeter Physical Exam Vital Signs: Last Vital Signs Pulse 84 04/14/23 11:12 BP 140/70 H 04/14/23 11:12 BMI result Body Mass Index 42.8 Const General: comfortable and no acute distress Orientation/consciousness: patient oriented x3 HEENT Head: Yes normocephalic Mouth: Normal oral and palatal mucosa present Eyes EOM: EOMs intact bilaterally Neck Neck: Yes supple Resp Auscultation: clear to auscultation bilaterally Cardio Jugular venous distension: no JVD Rate: regular rate GI Palpation (GI): Soft to palpation Auscultation: normal bowel sounds General: Yes no CVA tenderness Back/Spine/Pelvis Back: no CVA tenderness Skin General skin exam: no rashes or lesions noted Neuro General: patient oriented x3 and moves all extremities Extrem General: Yes no pedal edema Assessment & Plan Assessment & Plan (1) HTN (hypertension): Code(s): I10 - Essential (primary) hypertension Qualifiers: Hypertension type: primary hypertension Qualified Code(s): I10 - Essential (primary) hypertension (2) Flank pain: Code(s): R10.9 - Unspecified abdominal pain (3) CKD (chronic kidney disease) stage 2, GFR 60-89 ml/min: Code(s): N18.2 - Chronic kidney disease, stage 2 (mild) Plan Charissa has mild CKD. She is diabetic and hypertensive. Her blood sugars are suboptimally controlled. Her blood pressure has been at goal. She is gaining a lot a weight. She was counseled to be more active and lose some weight. She is unsure whether she is taking TREMAINE-inhibitor. She does not take any nonsteroidal anti-inflammatory medications and keep herself hydrated. I ordered urine for culture and urinalysis. She will be a great candidate for Jardiance or Farxiga. I encouraged her to bring the list of her medications at the next visit. I did not make any medication changes today. Time spent retrieving data, patient encounter and documentation 23 minutes. Follow-up given. Orders: Orders Protein Creatinine Ratio, Ur 04/14/23 I10 - Essential (primary) hypertension Urine Culture 04/14/23 R10.9 - Unspecified abdominal pain Electrolytes 04/14/23 I10 - Essential (primary) hypertension Blood Urea Nitrogen 04/14/23 I10 - Essential (primary) hypertension Creatinine 04/14/23 I10 - Essential (primary) hypertension Calcium 04/14/23 I10 - Essential (primary) hypertension UA and rflx microscopic 04/14/23 I10 - Essential (primary) hypertension Coding Level of Care Code Est Pt Level 3 (79049) Diagnoses Primary hypertension I10 Hypertension type: primary hypertension Flank pain R10.9 CKD (chronic kidney disease) stage 2, GFR 60-89 ml/min N18.2 Results Reviewed Nephrology Results: Hgb 13.4 g/dl (12.0-16.0) 02/14/23 WBC 11.3 X10*3/uL (4.8-10.8) H 02/14/23 Plt Count 270 X10*3/uL (160-400) 02/14/23 Sodium 138 mmol/L (135-145) 04/14/23 Potassium 4.6 mmol/L (3.3-5.1) 04/14/23 Chloride 101 mmol/L (96-108) 04/14/23 Carbon Dioxide 29 mmol/L (22-29) 04/14/23 BUN 23 mg/dL (9-16) H 04/14/23 Creatinine 1.13 mg/dL (0.5-1.4) 04/14/23 Calcium 9.9 mg/dL (8.4-10.2) 04/14/23 Urine Protein Negative mg/dL (Neg-Trace) 04/14/23 Urine Creatinine 67.70 mg/dL 04/14/23 Protein/Creatinin Ratio TNP 04/14/23
== END 2023-04-14 12:12 | disposition home or self-care (01) ==
PROVIDERS: Visit Provider Internal Medicine Nephrology
DX: I12.9 Hypertensive chronic kidney disease with stage 1 through stage 4 chronic kidney disease, or unspecified chronic kidney disease (principal); R10.9 Unspecified abdominal pain; N18.2 Chronic kidney disease, stage 2 (mild)
CPT/HCPCS: 99213

== ENCOUNTER → 2023-04-14 11:03 | Outpatient (BNVA) | payer MEDICARE, SELFPAY | PROVIDERS: Visit Provider Internal Medicine Nephrology | DX: I12.9 Hypertensive chronic kidney disease with stage 1 through stage 4 chronic kidney disease, or unspecified chronic kidney disease (principal); N18.2 Chronic kidney disease, stage 2 (mild); R10.9 Unspecified abdominal pain | CPT/HCPCS: 99212 ==

== ENCOUNTER 2023-04-14 12:18 | Outpatient (REF) | payer MEDICARE, SELFPAY ==
[2023-04-14 13:37] LABS: Anion Gap 13 (12-20); Blood Urea Nitrogen 23 mg/dL (9-16); Calcium 9.9 mg/dL (8.4-10.2); Carbon Dioxide 29 mmol/L (22-29); Chloride 101 mmol/L (96-108); Estimated Glomerular Filt Rate 48; Potassium 4.6 mmol/L (3.3-5.1); Sodium 138 mmol/L (135-145)
[2023-04-14 13:39] LABS: Appearance Urine Clear; Color Urine Yellow; Glucose Urine UA >=1000 mg/dL (Negative); Leukocyte Esterase Urine Negative (Negative); Nitrite Urine Negative (Negative); PH 5.5 (5.0-9.0); UMIC TRIGGER UA YES; Urine Blood Negative (Negative); Urine Ketones Negative (Negative); Urine Protein Negative (Neg-Trace)
[2023-04-14 13:43] LABS: Bacteria Urine None Seen (None Seen); Hyaline Casts Urine 0-2 /LPF (0-2); RBC Urine 0-2 /HPF (0-2); Squamous Epithelial Cell Urine 0-2 /HPF (0-2); WBC Urine 0-5 /HPF (0-5)
[2023-04-14 14:06] LABS: Total Protein Urine Random < 7 mg/dL (<12)
== END 2023-04-14 12:19 | disposition home or self-care (01) ==
LOC: HO.10HDL 12:18
PROVIDERS: Visit Provider Internal Medicine Nephrology
DX: I10 Essential (primary) hypertension (principal); R10.9 Unspecified abdominal pain
CPT/HCPCS: 36415; 80051; 81001; 82310; 82565; 82570; 84156; 84520; 87086

== ENCOUNTER 2023-04-27 19:55 | Inpatient (IN) | payer MEDICARE, SELFPAY ==
--- NOTE | ~2023-04-27 | US_ITS ---
EXAMINATION: US VENOUS WITH DOPPLER UPPER EXTREMITY, RIGHT CLINICAL INFORMATION: Right arm swelling and pain COMPARISON: None available. TECHNIQUE: Ultrasound of the upper extremity is performed using compression sonography and color and pulse Doppler flow with assessment of augmentation of flow. There is also imaging and Doppler assessment of the jugular and subclavian veins. Spectral analysis with color-flow imaging is performed. FINDINGS: Respiratory variation, normal compression, and augmented flow are noted throughout the upper extremity including the axillary and brachial veins. There is normal flow in the internal jugular and subclavian veins. The basilic and cephalic veins appear normal. The veins of the forearm were not examined. There is no visible deep or superficial thrombophlebitis. If the patient's symptoms progress, a followup ultrasound in 5 -7 days might be of value to exclude proximal propagation from a nonvisualized distal arm vein. US/US venous duplex UE RT IMPRESSION: No DVT demonstrated in the right upper extremity.
--- NOTE | ~2023-04-27 | US_ITS ---
EXAMINATION: US VENOUS ULTRASOUND WITH DOPPLER LOWER EXTREMITY, RIGHT CLINICAL INFORMATION: Swelling. Edema. COMPARISON: None available. TECHNIQUE: Ultrasound of the deep veins is performed from the hip to the calf with compression sonography and color and pulse Doppler assessment. Spectral analysis with color-flow imaging is performed. FINDINGS: There is normal venous compression and respiratory variation and augmented flow. The visualized common femoral vein, superficial femoral vein, profunda femoral vein, popliteal vein, and the trifurcation region shows no evidence of deep venous thrombosis. There is no significant popliteal fossa cyst. If the patient's symptoms persist, followup ultrasound in 5 days 7 days might be of value to exclude proximal propagation from a non-visualized calf vein. US/US venous duplex LE RT IMPRESSION: No DVT demonstrated in the right lower extremity.
--- NOTE | ~2023-04-27 | CT_ITS ---
EXAMINATION: CT head/brain wo IV con CLINICAL INFORMATION: Reason for Exam Encephalopathy COMPARISON: CT head 01/01/2023 and MRI brain of 10/01/2022 TECHNIQUE: Contiguous axial imaging was performed from the skull base to vertex without intravenous contrast. Sagittal and coronal reformatted images were obtained. This CT examination was performed using dose optimization techniques as appropriate, variously including the following: * Automated exposure control * Adjustment of mA and/or kV according to patient size (this includes techniques or standardized protocols for targeted exams where dose is matched to indication/reason for exam; i.e. extremities or head) Use of iterative reconstruction technique DLP: 1021 mGy-cm FINDINGS: Query new 4 mm hyperdensity in the right espinoza radiata best appreciated on image 175, series 7 with adjacent mild hypodensity, may reflect focal hemorrhage and vasogenic edema, for which further characterization with contrast-enhanced brain MRI is advised. Please note there is no corresponding susceptibility artifact in this region on prior MRI. The ventricles and sulci are normal in size and configuration without significant volume loss or hydrocephalus. No territorial loss of anderson-white differentiation. Redemonstrated nonspecific mineralization along the bilateral dorsal medulla in the region of the area postrema. Partially empty sella. No extra-axial fluid collection. No significant mass effect or herniation pattern. Lens replacements. Paranasal sinuses and mastoid air cells are well aerated. Osseous structures are intact. Enlargement of the temporalis musculature which may be seen in the setting of bruxism; correlate clinically. 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 CT/CT head/brain wo IV con IMPRESSION: Query new 4 mm hyperdensity in the right espinoza radiata best appreciated on image 175, series 7 with adjacent mild hypodensity, may reflect focal hemorrhage and vasogenic edema, for which further characterization with contrast-enhanced brain MRI is advised. This was communicated to Dr. Kathie Robin on 04/28/2023 at 6:11 PM.
--- NOTE | ~2023-04-27 | XR_ITS ---
EXAMINATION: XR CHEST CLINICAL INFORMATION: Central line COMPARISON: Previous chest x-ray from earlier the same day TECHNIQUE: Frontal view of the chest was obtained. FINDINGS: The cardiac and mediastinal contours are stable. New left jugular line with tip projecting over the SVC. No pneumothorax. Question atelectasis or small infiltrate at the left lung base. Lungs otherwise clear. No pleural effusion. Pleural calcification. Degenerative changes of the spine. Surgical clips over the left chest wall. XR/XR chest 1V IMPRESSION: Left jugular line tip projects over SVC. No pneumothorax. Question atelectasis or small infiltrate at the left lung base.
--- NOTE | ~2023-04-27 | XR_ITS ---
EXAMINATION: XR CHEST CLINICAL INFORMATION: Fever. Question pneumonia. COMPARISON: Previous chest x-ray most recent September 2020 TECHNIQUE: Frontal view of the chest was obtained. FINDINGS: Exam is limited due to artifact. Cardiac and mediastinal contours are normal. Difficult to exclude atelectasis or small infiltrate at the lung bases. No pleural effusion. Surgical clips left breast. Degenerative changes of the spine. XR/XR chest 1V IMPRESSION: Limited exam. Question atelectasis or small infiltrates at lung bases. Follow-up chest x-ray recommended.
--- NOTE | ~2023-04-27 | MR_ITS ---
EXAMINATION: MR BRAIN WITH AND WITHOUT CONTRAST CLINICAL INFORMATION: Right espinoza radiata hyperdensity COMPARISON: CT head from earlier same day and MRI brain 10/01/2022 TECHNIQUE: MRI of the brain was obtained using routine sequences before and following administration of intravenous contrast. A total of 10 mL of Gadavist was administered intravenously. FINDINGS: Motion degraded examination. No MR correlate corresponding to previously queried hyperdensity in the right espinoza radiata, most compatible with artifact than prior examination. No acute infarct. The GRE sequence is without susceptibility artifact to suggest acute or chronic blood products. No extra-axial fluid collection. The ventricles and sulci are normal in size and configuration without significant volume loss or hydrocephalus. Stable patchy T2 FLAIR hyperintense foci in the subcortical and periventricular white matter, nonspecific but presumably mild chronic microangiopathy. No definite pathologic intracranial enhancement within limitations of motion artifact. The intracranial dural venous sinus and arterial flow voids are preserved. Normal appearance of the midline structures. Lens replacements. Trace paranasal sinus mucosal thickening. No mastoid effusion. Normal marrow signal. MR/MR head/brain wo/w con IMPRESSION: No MR correlate corresponding to previously queried hyperdensity in the right espinoza radiata, most compatible with artifact than prior examination. No acute intracranial abnormality.
[2023-04-27 20:02] VITALS: BP 157/70; PULSE 90; O2SAT 98; BMI 47.6
[2023-04-27 20:05] VITALS: BP 174/76; PULSE 89; RESP 14; TEMP 36.9; O2SAT 97
--- NOTE | 2023-04-27 20:08 | PC.NURSE ---
a&ox4, vss and up to date, nsr on the teletypesetter monitor. pt comes in today d/t possible stroke alert. upon arrival to ED - dr. ariza verbalizes that this is not a stroke alert a this time. pt states that she feels like she is having an episode of her chronic headaches. pt verbalizes headache started around 1800 tonight. pt's daughter noticed slurred speech/elongated words and blurred vision. no sob/wob noted. respirations even/unlabored. call altamirano placed within reach.
--- NOTE | 2023-04-27 20:14 | ED.HA ---
HPI - Headache General Chief Complaint: Headache Stated Complaint: stroke alert, slurred speech, visual disturbances Time Seen by Provider: 04/27/23 20:09 Source: patient Mode of arrival: EMS Limitations: no limitations History of Present Illness HPI Narrative: Patient with history of complex migraine headache on Ubrelvy for migraine headache had a long day today had the CT scan of the left shoulder for ongoing problem with left shoulder does have history of anxiety hypertension sleep apnea just around 1800 tonight patient noticed headache is coming with aura with blurred vision which is getting clear now no nausea no vomiting no focal deficit Related Data Home Medications Medication Instructions Recorded Confirmed blood sugar diagnostic (FreeStyle 09/28/22 01/06/23 Lite Strips) clonidine HCl 0.1 mg tablet 0.1 mg PO BEDTIME 09/28/22 01/06/23 gabapentin 300 mg capsule 300 mg PO BID 09/28/22 01/06/23 insulin glargine 100 unit/mL (3 50 unit subcut BID 09/28/22 01/06/23 mL) subcutaneous pen (Lantus Solostar U-100 Insulin) insulin lispro 100 unit/mL See Rx Instructions .Route .COMPLEX 09/28/22 01/06/23 subcutaneous pen pen needle, diabetic 32 gauge x 09/28/22 01/06/23 1/ (BD Ultra-Fine Micro Pen Needle) simvastatin 20 mg tablet 20 mg PO BEDTIME 09/28/22 01/06/23 ubrogepant 100 mg tablet (Ubrelvy) 100 mg PO DIRECTED 09/28/22 01/06/23 aspirin 81 mg tablet,delayed 81 mg PO DAILY 10/01/22 01/06/23 release cholecalciferol (vitamin D3) 25 25 mcg PO DAILY 10/01/22 01/06/23 mcg (1,000 unit) tablet melatonin 10 mg tablet 10 mg PO BEDTIME 10/01/22 01/06/23 gabapentin 300 mg capsule 600 mg PO BEDTIME 04/14/23 (Neurontin) levothyroxine 125 mcg tablet 125 mcg PO DAILY 04/14/23 Previous Rx's Medication Instructions Recorded fremanezumab-vfrm 225 mg/1.5 mL 225 mg (1.5 mL) subcut ONCE 30 01/06/23 subcutaneous auto-injector (Ajovy) days #1.5 mL lorazepam 0.5 mg tablet (Ativan) 0.5 mg PO BID PRN anxiety #20 tabs 02/14/23 Allergies Allergy/AdvReac Type Severity Reaction Status Date / Time Iodinated Contrast Media Allergy Severe SEDATION,TA Verified 04/27/23 20:02 [IVP DYE] CHYCARDIA azithromycin Allergy Unknown Hives Verified 04/27/23 20:02 erythromycin base Allergy Unknown HIVES Verified 04/27/23 20:02 [ERYTHROMYCIN BASE] metformin AdvReac Unknown Diarrhea Verified 04/27/23 20:02 Review of Systems Review of Systems: Yes all other systems are reviewed and are negative [facility] Past Medical History Medical History Encephalitis Hypothyroid HTN (hypertension) HLD (hyperlipidemia) Diabetes Complicated migraine Surgical History Hx of left mastectomy Hx of cholecystectomy H/O section Family History Family History Mother Lung cancer Diabetes Depression Daughter Alcohol abuse Father FH: cholecystectomy Social History Social History Household Members: Spouse Housing: House Do you presently have visiting nurse or other home services: No (just finished last week) Alcohol intake: never 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 Patient Tobacco Use Status: Never used Tobacco Smoked in Last 30 Days: No e-Cigarette/Vaping Use: Never Used Second Hand Smoke Exposure: No Use of substances other than those prescribed or required for medical reasons: No Advance Directives: Yes Advance Directives on File: Yes Advance Directives Date on File: 09/28/22 service: No Current occupational status: retired Physical Exam Vital Signs: Vital Signs: Last Vital Signs Temp 98.5 F 04/27/23 20:05 Pulse 89 04/27/23 20:05 Resp 18 04/27/23 23:38 BP 174/76 H 04/27/23 20:05 Pulse Ox 97 04/27/23 20:05 O2 Del Method Room Air 04/27/23 20:05 BMI result Body Mass Index 47.6 Appearance: Alert. Oriented X3. No acute distress. Anxious Eyes: PERRLA, No Nystagmus normal fundus exam ENT: Pharynx normal. Oral Mucosa moist Neck: Normal inspection. Neck supple. CVS: Normal heart rate and rhythm. Pulses normal. Respiratory: No respiratory distress. Equal air entry bilateral, no wheezing/rales/rhonchi Abdomen: Soft and nontender. Bowel sounds are present, no mass palpable, no CVA tenderness Skin: Skin warm and dry. Normal skin color. Normal skin turgor. Extremities: No lower extremity edema. No calf tenderness Neuro: Oriented X 3. No motor deficit. No sensory deficit.No cerebellar signs , cranial nerves II-XII intact Medications Administered Discontinued Medications Generic Name Dose Route Start Last Admin Trade Name Freq PRN Reason Stop Dose Admin Diphenhydramine HCl 25 mg 04/27/23 22:02 04/27/23 22:21 Diphenhydramine Hcl 50 Mg/Ml Vial IVPUSH 04/27/23 22:03 25 mg ONCE ONE Administration Ketorolac Tromethamine 30 mg 04/27/23 22:02 04/27/23 22:20 Ketorolac Tromethamine 30 Mg/Ml Vial IVPUSH 04/27/23 22:03 30 mg ONCE ONE Administration Lorazepam 2 mg 04/27/23 22:02 04/27/23 22:20 Lorazepam 2 Mg/Ml Vial IVPUSH 04/27/23 22:03 2 mg ONCE ONE Administration Sumatriptan Succinate 6 mg 04/27/23 20:14 04/27/23 20:25 Sumatriptan Succinate 6 Mg/0.5 Ml Vial SUBCUT 04/27/23 20:15 6 mg ONCE ONE Administration Medical Decision Making Medical Decision Making [facility] Narrative: Patient with anxiety and complex migraine improved after Ativan and Benadryl sleeping at this time will discharge patient home once gets better Differential Diagnosis Differential Diagnoses: The differential diagnosis associated with the presentation includes Complex migraine/tension at the/anxiety Lab Data [facility] Lab Attestation statement: I reviewed the patient's lab results. 04/27/23 20:20 04/27/23 20:20 Labs: Lab Results 04/27/23 04/28/23 Range/Units 20:20 01:43 WBC 8.3 (4.8-10.8) X10*3/uL RBC 4.13 L (4.20-5.50) X10*6/uL Hgb 12.2 (12.0-16.0) g/dl Hct 36.6 L (37.0-47.0) % MCV 88.6 (80.0-98.0) fL MCH 29.5 (27.0-33.0) pg MCHC 33.3 (31.0-35.0) g/dl RDW 12.8 (11.0-16.0) % Plt Count 237 (160-400) X10*3/uL MPV 11.6 (9.4-12.3) fL Immature Gran % (Auto) 0.5 H (0.0-0.4) % Neut % (Auto) 56.2 (45-73) % Lymph % (Auto) 29.6 (20-40) % [place] % (Auto) 10.6 (2-11) % Eos % (Auto) 2.6 (0-4) % Baso % (Auto) 0.5 (0-2) % Lymph # (Auto) 2.5 (1.2-4.9) X10*3/uL [place] # (Auto) 0.9 (0.1-1.2) X10*3/uL Eos # (Auto) 0.2 (0.0-0.4) X10*3/uL Baso # (Auto) 0.0 (0.0-0.2) X10*3/uL Abs Immat Gran (auto) 0.04 H (0.00-0.03) X10*3/uL Absolute Neuts (auto) 4.7 (2.0-8.3) x10*3/uL Absolute Nucleated RBC 0.000 (0.0-0.012) X10*3/uL Nucleated RBC % (auto) 0.0 (0.0-0.2) /100WBC Sodium 142 (135-145) mmol/L Potassium 3.9 (3.3-5.1) mmol/L Chloride 107 (96-108) mmol/L Carbon Dioxide 26 (22-29) mmol/L Anion Gap 13 (12-20) BUN 23 H (9-16) mg/dL Creatinine 1.04 (0.5-1.4) mg/dL Estim Creat Clear Calc 63.8 Estimated GFR 52 Random Glucose 196 H (60-115) mg/dL Calcium 9.3 D (8.4-10.2) mg/dL Magnesium 1.9 (1.6-2.6) mg/dL Total Bilirubin 0.8 (0.0-1.0) mg/dL AST 55 H (5-31) U/L ALT 58 H (0-31) U/L Alkaline Phosphatase 125 H (39-117) U/L Total Protein 7.1 (6.5-8.0) g/dL Albumin 3.7 (3.5-5.0) g/dL Urine Color Yellow Urine Appearance Clear Urine pH 5.0 (5.0-9.0) Ur Specific [place] 1.025 (1.005-1.025) Urine Protein Negative (Neg-Trace) mg/dL Urine Glucose (UA) 250 H (Negative) mg/dL Urine Ketones Negative (Negative) mg/dL Urine Blood Negative (Negative) Urine Nitrite Negative (Negative) Ur Leukocyte Esterase Negative (Negative) Influenza Type A (PCR) NEGATIVE (Negative) Influenza Type B (PCR) NEGATIVE (Negative) RSV RNA Qual (PCR) NEGATIVE (Negative) SARS-CoV-2 RNA (RT-PCR) NEGATIVE (Negative) Discharge Plan Discharge Clinical Impression: Migraine, Anxiety Patient Disposition: Home, Self-Care Instructions: Migraine Headache (ED), Anxiety (ED) Additional Instructions: Continue medications as prescribed by her PCP for a migraine headache and anxiety Prescriptions: No Action lorazepam [Ativan] 0.5 mg tablet 0.5 mg PO BID PRN (Reason: anxiety) Qty: 20 0RF clonidine HCl 0.1 mg tablet 0.1 mg PO BEDTIME (DME) FreeStyle Lite Strips Strip 1 strip MISCELLANEOUS TID simvastatin 20 mg tablet 20 mg PO BEDTIME insulin lispro 100 unit/mL insulin pen See Rx Instructions .ROUTE .COMPLEX Rx Instructions: inject subq 3x daily with meals per sliding scale 80-99 inject 31 units 100-149 inject 33 units 150-199 inject 37 units 200-249 inject 41 units 250-299 inject 43 units 300-349 inject 45 units 350-399 inject 47 units 400 and higher: inject 49 units and call insulin glargine [Lantus Solostar U-100 Insulin] 100 unit/mL (3 mL) insulin pen 50 unit subcut BID Rx Instructions: inject 50 units subq in the morning (8am) and 50 units at night (8pm) (DME) pen needle, diabetic [BD Ultra-Fine Micro Pen Needle] 32 gauge x 1/4 needle MISCELLANEOUS Ubrelvy 100 mg tablet 100 mg PO DIRECTED Rx Instructions: take at onset of migraine. MRX1 after 2 hours. Do not exceed 2 doses in 24 hours gabapentin 300 mg capsule 300 mg PO BID Patient Comments: 8am and 2pm levothyroxine 125 mcg tablet 125 mcg PO DAILY aspirin 81 mg Tablet,Delayed Release (Dr/Ec) 81 mg PO DAILY cholecalciferol (vitamin D3) 25 mcg (1,000 unit) Tablet 25 mcg PO DAILY melatonin 10 mg Tablet 10 mg PO BEDTIME Ajovy Autoinjector 225 mg/1.5 mL auto-injector 225 mg subcut ONCE 30 Days Qty: 1.5 6RF Rx Instructions: administer 225mg sc q month gabapentin [Neurontin] 300 mg capsule 600 mg PO BEDTIME
--- NOTE | 2023-04-27 20:15 | ECG_ITS ---
Test Reason : ams Blood Pressure : / mmHG Vent. Rate : 076 BPM Atrial Rate : 076 BPM P-R Int : 202 ms QRS Dur : 094 ms QT Int : 390 ms P-R-T Axes : 041 033 026 degrees QTc Int : 438 ms Normal sinus rhythm with sinus arrhythmia Nonspecific ST and T wave abnormality Abnormal ECG When compared with ECG of 01-JAN-2023 13:28, No significant change was found Referred By: Armando Cruz Electronically Signed By:GLADYS ALONZO MD
[2023-04-27] MEDS: SUMAtriptan succinate 6 MG/0.5 ML VIAL SUBCUT (20:25)
[2023-04-27 20:26] LABS: MANUAL DIFF FLAG NO
--- NOTE | 2023-04-27 20:26 | PC.NURSE ---
labs obtained/sent to lab. medication administered per provider order.
[2023-04-27 20:35] LABS: Basophils Percent Auto 0.5 % (0-2); Eosinophils Absolute Auto 0.2 X10*3/uL (0.0-0.4); Eosinophils Percent Auto 2.6 % (0-4); Hematocrit 36.6 % (37.0-47.0); Hemoglobin 12.2 g/dl (12.0-16.0); Imm Gran Abs Auto 0.04 X10*3/uL (0.00-0.03); Imm Gran Pct Auto 0.5 % (0.0-0.4); Lymphocytes Absolute Auto 2.5 X10*3/uL (1.2-4.9); Lymphocytes Percent Auto 29.6 % (20-40); Mean Corpuscular HGB Conc 33.3 g/dl (31.0-35.0); Mean Corpuscular Hemoglobin 29.5 pg (27.0-33.0); Mean Corpuscular Volume 88.6 fL (80.0-98.0); Mean Platelet Volume 11.6 fL (9.4-12.3); Monocytes Absolute Auto 0.9 X10*3/uL (0.1-1.2); Monocytes Percent Auto 10.6 % (2-11); Neutrophils Absolute Auto 4.7 x10*3/uL (2.0-8.3); Neutrophils Percent Auto 56.2 % (45-73); Platelet Count 237 X10*3/uL (160-400); Red Blood Count 4.13 X10*6/uL (4.20-5.50); Red Cell Distribution Width 12.8 % (11.0-16.0); White Blood Count 8.3 X10*3/uL (4.8-10.8)
[2023-04-27 20:42] LABS: Alanine Aminotransferase 58 U/L (0-31); Albumin Level 3.7 g/dL (3.5-5.0); Alkaline Phosphatase 125 U/L (39-117); Anion Gap 13 (12-20); Aspartate Amino Transferase 55 U/L (5-31); Bilirubin Total 0.8 mg/dL (0.0-1.0); Blood Urea Nitrogen 23 mg/dL (9-16); Calcium 9.3 mg/dL (8.4-10.2); Carbon Dioxide 26 mmol/L (22-29); Chloride 107 mmol/L (96-108); Creatinine Clr Calc Pharmacy 63.8; Estimated Glomerular Filt Rate 52; Glucose Random 196 mg/dL (60-115); Magnesium 1.9 mg/dL (1.6-2.6); Potassium 3.9 mmol/L (3.3-5.1); Sodium 142 mmol/L (135-145); Total Protein 7.1 g/dL (6.5-8.0)
[2023-04-27 21:06] LABS: Influenza A PCR NEGATIVE (Negative); Influenza B PCR NEGATIVE (Negative); Resp Syncy Virus RNA Qual PCR NEGATIVE (Negative); SARS COV2 PCR INHOUSE NEGATIVE (Negative)
[2023-04-27] MEDS: LORazepam 2 MG/ML VIAL IVPUSH (22:20)
[2023-04-27] MEDS: Ketorolac Tromethamine 30 MG/ML VIAL IVPUSH (22:20)
[2023-04-27] MEDS: diphenhydrAMINE HCL 50 MG/ML VIAL 25 MG IVPUSH (22:21)
[2023-04-27 23:38] VITALS: RESP 18
[2023-04-28] VITALS (20 sets, daily range): BP systolic 94–199; BP diastolic 45–80; PULSE 72–106; RESP 15–22; TEMP 38.6–39.9; O2SAT 95–98
--- NOTE | 2023-04-28 | EEG_ITS ---
This is a 16 channel portable EEG. The patient is reported unresponsive. This EEG is somewhat limited because of frequent lead artifacts. When seen, background EEG rhythm is low amplitude and mixed theta, beta with no obvious asymmetry or paroxysmal tendency. Photic stimulation or hyperventilation was not performed. Cardiac lead did not reveal any significant abnormality. IMPRESSION: Limited EEG because of frequent artifacts, but it did not reveal any sign of epileptic discharges. Generalized slowing was noted. MD DANN German/SHELBY / [id number]
--- NOTE | 2023-04-28 01:46 | PC.NURSE ---
Straight cath done. 300 ml of clear yellow urine output. Pt tolerated well. Urine sample sent to the lab.
[2023-04-28 01:51] LABS: Appearance Urine Clear; Color Urine Yellow; Glucose Urine UA 250 mg/dL (Negative); Leukocyte Esterase Urine Negative (Negative); Nitrite Urine Negative (Negative); Specific Gravity - Urine 1.025 (1.005-1.025); Urine Blood Negative (Negative); Urine Ketones Negative (Negative); Urine Protein Negative (Neg-Trace)
--- NOTE | 2023-04-28 03:14 | PC.NURSE ---
Pt sleeping at the bedside. No apparent distress noted. Breaths are even regular and unlabored with equal chest rises. Monitoring is ongoing.
--- NOTE | 2023-04-28 03:27 | PC.NURSE ---
Pt switched from a stretcher to a hospital bed to increase pt comfort.
[2023-04-28] MEDS: Acetaminophen Supp 650 MG SUPP.RECT PR (05:34)
--- NOTE | 2023-04-28 05:38 | PM.IMHP ---
History of Present Illness Date of Service: 04/28/23 Chief Complaint: Altered mentation This is a 72-year-old female with pertinent history of complex migraine, insulin-dependent diabetes mellitus, mood disorder, hypothyroidism, mixed hyperlipidemia who was brought to the emergency department for evaluation of headaches and altered mentation. 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 Unable to obtain any history of the time of my evaluation. Patient is only eye opening to painful stimulus. Unable to have a conversation. Patient presented earlier for headache with aura and blurred vision. She subsequently developed a fever and altered mentation. No family at bedside. Unable to obtain review of systems. Review of Systems Review of Systems: Yes Unobtainable due to mental status PMFSH Medical History Encephalitis Hypothyroid HTN (hypertension) HLD (hyperlipidemia) Diabetes Complicated migraine Family History Mother Lung cancer Diabetes Depression Daughter Alcohol abuse Father FH: cholecystectomy Surgical History Hx of left mastectomy Hx of cholecystectomy H/O section Social History Household Members: Spouse Housing: House Do you presently have visiting nurse or other home services: No (just finished last week) Alcohol intake: never 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 Patient Tobacco Use Status: Never used Tobacco Smoked in Last 30 Days: No e-Cigarette/Vaping Use: Never Used Second Hand Smoke Exposure: No Use of substances other than those prescribed or required for medical reasons: No Advance Directives: Yes Advance Directives on File: Yes Advance Directives Date on File: 09/28/22 service: No Current occupational status: retired Meds Allergies Allergy/AdvReac Type Severity Reaction Status Date / Time Iodinated Contrast Media Allergy Severe SEDATION,TA Verified 04/27/23 20:02 [IVP DYE] CHYCARDIA azithromycin Allergy Unknown Hives Verified 04/27/23 20:02 erythromycin base Allergy Unknown HIVES Verified 04/27/23 20:02 [ERYTHROMYCIN BASE] metformin AdvReac Unknown Diarrhea Verified 04/27/23 20:02 Home Medications Medication Instructions Recorded Confirmed Last Taken Type blood sugar diagnostic (FreeStyle 09/28/22 01/06/23 Unknown History Lite Strips) clonidine HCl 0.1 mg tablet 0.1 mg PO BEDTIME 09/28/22 01/06/23 Unknown History gabapentin 300 mg capsule 300 mg PO BID 09/28/22 01/06/23 Unknown History insulin glargine 100 unit/mL (3 50 unit subcut BID 09/28/22 01/06/23 Unknown History mL) subcutaneous pen (Lantus Solostar U-100 Insulin) insulin lispro 100 unit/mL See Rx Instructions .Route .COMPLEX 09/28/22 01/06/23 Unknown History subcutaneous pen pen needle, diabetic 32 gauge x 09/28/22 01/06/23 Unknown History 1/4 (BD Ultra-Fine Micro Pen Needle) simvastatin 20 mg tablet 20 mg PO BEDTIME 09/28/22 01/06/23 Unknown History ubrogepant 100 mg tablet (Ubrelvy) 100 mg PO DIRECTED 09/28/22 01/06/23 Unknown History aspirin 81 mg tablet,delayed 81 mg PO DAILY 10/01/22 01/06/23 Unknown History release cholecalciferol (vitamin D3) 25 25 mcg PO DAILY 10/01/22 01/06/23 Unknown History mcg (1,000 unit) tablet melatonin 10 mg tablet 10 mg PO BEDTIME 10/01/22 01/06/23 Unknown History gabapentin 300 mg capsule 600 mg PO BEDTIME 04/14/23 Unknown History (Neurontin) levothyroxine 125 mcg tablet 125 mcg PO DAILY 04/14/23 Unknown History Physical Exam Vital Signs and Narrative: Vital Signs: Last Vital Signs Temp 101.4 F H 04/28/23 05:26 Pulse 95 04/28/23 05:26 Resp 18 04/28/23 05:26 BP 158/62 H 04/28/23 05:26 Pulse Ox 95 04/28/23 05:26 O2 Del Method Room Air 04/28/23 05:26 BMI result Body Mass Index 47.6 Elderly female lying in bed in no distress Neck supple, no JVD Regular rate and rhythm, S1-S2 heard Regular breath sounds bilaterally, no wheezing or crackles appreciated Abdomen soft nontender, no guarding, no rigidity Patient is only eye opening to painful stimulus, not responding to verbal stimulus, unable to have a conversation Results Labs 04/27/23 20:20 04/27/23 20:20 Labs: Laboratory Results - last 24 hr 04/27/23 04/28/23 20:20 01:43 MCV 88.6 MCH 29.5 MCHC 33.3 RDW 12.8 Plt Count 237 MPV 11.6 Immature Gran % (Auto) 0.5 H Neut % (Auto) 56.2 Lymph % (Auto) 29.6 [place] % (Auto) 10.6 Eos % (Auto) 2.6 Baso % (Auto) 0.5 Lymph # (Auto) 2.5 [place] # (Auto) 0.9 Eos # (Auto) 0.2 Baso # (Auto) 0.0 Abs Immat Gran (auto) 0.04 H Absolute Neuts (auto) 4.7 Absolute Nucleated RBC 0.000 Nucleated RBC % (auto) 0.0 Anion Gap 13 Estim Creat Clear Calc 63.8 Estimated GFR 52 Random Glucose 196 H Calcium 9.3 D Magnesium 1.9 Total Bilirubin 0.8 AST 55 H ALT 58 H Alkaline Phosphatase 125 H Total Protein 7.1 Albumin 3.7 Urine Color Yellow Urine Appearance Clear Urine pH 5.0 Ur Specific [place] 1.025 Urine Protein Negative Urine Glucose (UA) 250 H Urine Ketones Negative Urine Blood Negative Urine Nitrite Negative Ur Leukocyte Esterase Negative Influenza Type A (PCR) NEGATIVE Influenza Type B (PCR) NEGATIVE RSV RNA Qual (PCR) NEGATIVE SARS-CoV-2 RNA (RT-PCR) NEGATIVE Assessment and Plan (1) Acute febrile illness: Status: Acute (2) Encephalopathy acute: Status: Acute Plan This is a 72-year-old female with pertinent history of complex migraine, insulin-dependent diabetes mellitus, mood disorder, hypothyroidism, mixed hyperlipidemia who was brought to the emergency department for evaluation of headaches and altered mentation. #. Acute encephalopathy, headache with fever, likely due to complex migraine versus malignant catatonia: Will admit patient and continue supportive care. Received Imitrex and lorazepam in the ER. Consulted Neurology, appreciate assistance. Continue supportive care. Extensive workup during similar episodes in the past including LP, 24 hour EEG, CT head, MRI head which was negative. Was also evaluated by ID during previous admission who ruled out infectious etiology, defer antibiotics. Obtaining CPK. #. Hypothyroidism: On Synthroid #. Insulin-dependent diabetes mellitus with hyperglycemia. Reduce home basal insulin and initiate Accu-Cheks with sliding scale insulin every 6 hours #. Mood disorder: Resume home mood stabilizers once able to take p.o. Med rec pending DVT prophylaxis: Lovenox Full code NPO until mentation improves Quality Stroke Does the patient have a stroke diagnosis?: No VTE Prior VTE?: No VTE Risk Level:: Medical - moderate - high VTE Device Contraindication: Treatment Not Indicated VTE Drug Contraindication: N/A - Med Ordered
[2023-04-28 06:22] LABS: Glucose, Whole Blood 277 mg/dL (60-115)
[2023-04-28] MEDS: Insulin Glargine,Hum.rec.anlog 100 UNIT/ML 10 ML VIAL 40 UNIT SUBCUT (06:22)
[2023-04-28] MEDS: Insulin Lispro 100 UNIT/ML 3 ML VIAL SUBCUT ×2 (06:22→17:13)
[2023-04-28] MEDS: Acetaminophen 1,000 MG/100 ML PIGGYBACK 400 MG IV ×3 (07:51→20:38)
--- NOTE | 2023-04-28 07:55 | PC.NURSE ---
patient in hospital bed, only responsive to verbal stimuli, patient is moaning. New IV line started in R wrist #22, medicated per JUL for fever. respirations equal and unlabored
--- NOTE | 2023-04-28 08:21 | PHA.MEDREC ---
Pharmacy Consult ? Medication Reconciliation Pharmacy has completed the medication reconciliation. spoke with over the phone to confirm medications.
--- NOTE | 2023-04-28 10:22 | PC.NURSE ---
patient temp noted to be 103.9, advised by attending provider to place ice packs on patients grown, neck, underarms. Temp sensing khoury placed for temperature monitoring, 600ml output patient noted to have scratching herrera on right side of neck. patient only responsive to verbal stimuli, patient moans but does not open eyes or respond to questions. Respirations equal and unlabored
[2023-04-28 10:29] LABS: Glucose, Whole Blood 284 mg/dL (60-115)
[2023-04-28] MEDS: Ketorolac Tromethamine 30 MG/ML VIAL IVPUSH (10:29)
--- NOTE | 2023-04-28 10:37 | PC.NURSE ---
patient placed on cooling blanket for fever control
--- NOTE | 2023-04-28 10:56 | MHC.CM.PN ---
Addendum entered by Kelsie See 04/29/23 08:37: PT IS NO LONGER ACTIVE WITH [facility] THEY WILL FOLLOW IN CASE SERVICES ARE INDICATED AT DC Addendum entered by Kelsie See 04/28/23 11:56: CM ATTEMPTED TO REACH PTS AGAIN AT 11:56 CALL GOES TO AWAITING RETURN CALL Original Note: PT WITH DOCUMENTED AMS CM LEFT MESSAGE FOR , BETO [phone] REQUESTING A RETURN CALL PER EMR, PT LIVES WITH HER AND USES A CANE AT BASELINE SHE WAS ACTIVE WITH [facility] DURING HER MOST RECENT ADMISSION REFERRAL SENT TO DETERMINE CURRENT STATUS WITH [facility] PT HAS A HCP ON FILE PCP: ALLIE PAEZ IMM DELIVERED VIA T/C AND COPY LEFT AT BEDSIDE DCP TBD
--- NOTE | 2023-04-28 11:15 | P.CNNE_ITS ---
History of Present Illness Data of Consult Service Date: 04/28/23 Primary Care Provider: Unknown Physician HPI Reason for consult: Encephalopathy 72-year-old female with pertinent history of complex migraine, insulin-dependent diabetes mellitus, mood disorder, hypothyroidism, mixed hyperlipidemia who was brought to the emergency department for evaluation of headaches and altered mentation. I saw her in emergency room when she was not communicating of not responding to verbal stimuli and not opening her eyes. She was responded to pain. There was no abnormal posturing. Review of Systems 2 Review of Systems: Could not be done with [facility] Past Medical History Medical History Encephalitis Hypothyroid HTN (hypertension) HLD (hyperlipidemia) Diabetes Complicated migraine Family History Family History Mother Lung cancer Diabetes Depression Daughter Alcohol abuse Father FH: cholecystectomy Surgical History Surgical History Hx of left mastectomy Hx of cholecystectomy H/O section Social History Social History Household Members: Spouse Housing: House Do you presently have visiting nurse or other home services: No (just finished last week) Alcohol intake: never 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 Patient Tobacco Use Status: Never used Tobacco Smoked in Last 30 Days: No e-Cigarette/Vaping Use: Never Used Second Hand Smoke Exposure: No Use of substances other than those prescribed or required for medical reasons: No Advance Directives: Yes Advance Directives on File: Yes Advance Directives Date on File: 09/28/22 Nutrition Risks: No Nutritional Risk service: No Current occupational status: retired Meds Allergies Allergy/AdvReac Type Severity Reaction Status Date / Time Iodinated Contrast Media Allergy Severe SEDATION,TA Verified 04/27/23 20:02 [IVP DYE] CHYCARDIA azithromycin Allergy Unknown Hives Verified 04/27/23 20:02 erythromycin base Allergy Unknown HIVES Verified 04/27/23 20:02 [ERYTHROMYCIN BASE] metformin AdvReac Unknown Diarrhea Verified 04/27/23 20:02 Active Medications: Current Medications Acetaminophen (Acetaminophen 325 Mg Tablet) 650 mg PO Q6H PRN PRN Reason: Pain, Mild (Pain Scale 1-3) Acetaminophen (Acetaminophen Supp 650 Mg Supp.Rect) 650 mg [place] Q6H PRN PRN Reason: Pain, Mild (Pain Scale 1-3) Dextrose (Dextrose 50 % 25 Gm/50 Ml Syringe) 25 gm IVPUSH Q15M PRN; Protocol PRN Reason: per Hypoglycemia Standing Ord. Enoxaparin Sodium (Enoxaparin Sodium 40 Mg/0.4 Ml Syringe) 40 mg SUBCUT Q24H [facility] Last Admin: 04/28/23 10:09 Dose: Not Given Glucose (Glucose Gel 15 Gm Gel..Gram.) 15 gm PO Q15M PRN; Protocol PRN Reason: per Hypoglycemia Standing Ord. Insulin Human Lispro (Insulin Lispro 100 Unit/Ml 3 Ml Vial) 0 unit SUBCUT Q6H [facility]; Protocol Last Admin: 04/28/23 06:22 Dose: 6 unit Melatonin (Melatonin 3 Mg Tablet) 6 mg PO BEDTIME PRN PRN Reason: Insomnia Ondansetron HCl (Ondansetron Hcl 4 Mg/2 Ml Vial) 4 mg IVPUSH Q8H PRN PRN Reason: Nausea and Vomiting Sodium Chloride (0.9 % Sodium Chloride Flush 3 Ml Syringe) 3 ml IVFLUSH QSHIFT [facility] Last Admin: 04/28/23 07:56 Dose: Not Given Home Medications Medication Instructions Recorded Confirmed Last Taken Type blood sugar diagnostic (FreeStyle 09/28/22 01/06/23 Unknown History Lite Strips) clonidine HCl 0.1 mg tablet 0.1 mg PO TID 09/28/22 04/28/23 Unknown History gabapentin 300 mg capsule 300 mg PO BID 09/28/22 04/28/23 Unknown History insulin glargine 100 unit/mL (3 52 unit subcut BID 09/28/22 04/28/23 Unknown History mL) subcutaneous pen (Lantus Solostar U-100 Insulin) insulin lispro 100 unit/mL See Protocol subcut TID 09/28/22 04/28/23 Unknown History subcutaneous pen pen needle, diabetic 32 gauge x 09/28/22 01/06/23 Unknown History 1/4 (BD Ultra-Fine Micro Pen Needle) simvastatin 20 mg tablet 20 mg PO BEDTIME 09/28/22 04/28/23 Unknown History ubrogepant 100 mg tablet (Ubrelvy) 100 mg PO DIRECTED 09/28/22 04/28/23 Unknown History aspirin 81 mg tablet,delayed 81 mg PO DAILY 10/01/22 04/28/23 Unknown History release cholecalciferol (vitamin D3) 25 25 mcg PO DAILY 10/01/22 04/28/23 Unknown History mcg (1,000 unit) tablet melatonin 10 mg tablet 10 mg PO BEDTIME 10/01/22 04/28/23 Unknown History gabapentin 300 mg capsule 600 mg PO BEDTIME 04/14/23 04/28/23 Unknown History (Neurontin) levothyroxine 125 mcg tablet 125 mcg PO DAILY 04/14/23 04/28/23 Unknown History fremanezumab-vfrm 225 mg/1.5 mL 225 mg subcut QMONTH 04/28/23 04/28/23 04/21/23 History subcutaneous auto-injector (Ajovy) Physical Exam 2 Vital Signs: Vital Signs: Last Vital Signs Temp 102.7 F H 04/28/23 10:28 Pulse 103 H 04/28/23 10:28 Resp 16 04/28/23 10:28 BP 187/68 H 04/28/23 10:28 Pulse Ox 96 04/28/23 10:28 O2 Del Method Room Air 04/28/23 10:28 BMI result Body Mass Index 47.6 Neuro: Other: Not responsive to verbal stimuli, morning, withdrawing with pain. Neck is stiff. I was able to open her eyes and there was no obvious gaze deviation or jerking. There was no obvious abnormal body posturing or jerking. Deep tendon reflexes were absent with flat plantars. Results Labs 04/27/23 20:20 04/27/23 20:20 Labs: Short CBC 04/27/23 Range/Units 20:20 WBC 8.3 (4.8-10.8) X10*3/uL Hgb 12.2 (12.0-16.0) g/dl Hct 36.6 L (37.0-47.0) % Plt Count 237 (160-400) X10*3/uL BMP 04/27/23 20:20 Sodium 142 Potassium 3.9 Chloride 107 Carbon Dioxide 26 BUN 23 H Creatinine 1.04 Calcium 9.3 D Cardiac Enzymes 04/28/23 Range/Units 08:18 Total Creatine Kinase 115 (26-140) U/L Liver Function 04/27/23 Range/Units 20:20 Total Bilirubin 0.8 (0.0-1.0) mg/dL AST 55 H (5-31) U/L ALT 58 H (0-31) U/L Alkaline Phosphatase 125 H (39-117) U/L Albumin 3.7 (3.5-5.0) g/dL Urine 04/28/23 Range/Units 01:43 Urine Color Yellow Urine Appearance Clear Urine pH 5.0 (5.0-9.0) Ur Specific [place] 1.025 (1.005-1.025) Urine Protein Negative (Neg-Trace) mg/dL Urine Glucose (UA) 250 H (Negative) mg/dL Head CT did not reveal any obvious acute abnormality. Assessment and Plan (1) Encephalopathy acute: Status: Acute 72 years old woman with acute change in mental status with exam revealing neck rigidity, her complain of headache, unresponsiveness, and fever with no obvious source of infection. These features are suggestive of viral encephalitis. My recommendation is to start her on acyclovir intravenous treatment for encephalitis and perform a lumbar puncture to send for meningoencephalitis profile. Procedures Date of Service Date of Service: 04/28/23
[2023-04-28 13:10] LABS: Glucose, Whole Blood 292 mg/dL (60-115)
--- NOTE | 2023-04-28 13:53 | PM.EVENT ---
Event Note Date of Service: 04/28/23 Event Note: Patient is a 72 Y F with a complicated migraine history; per patient spouse, patient with multiple episodes of migraine, at times described as stroke-like w/ unilateral weakness, at times seizure-like w/ tonic-clonic movements, and at times mengititis-like w/ fever, encephalopathy, and nuchal rigidity; patient presents today w/ fever, encephalopathy, and nuchal rigidity, initially admitted floor; ICU consulted given encephalopathy and c/f airway maintenance; upon evaluation, patient encephalopathic, localizes to noxious stimulus, though maintaining secretions, satting mid 90s on room air; patient also w/ nuchal rigidity, no appreciable brudzinski and kernig sign; otherwise, no appreciable rales, rhonchi, wheezing; abdomen soft, non-tender, no guarding, rebound; no appreciable skin lesions; decision made to admit patient to ICU for further work-up and airway monitoring Time Spent With Patient Time: Total time managing care of this patient today ____ minutes.
--- NOTE | 2023-04-28 14:03 | PC.NURSE ---
600 ml of urine removed from patient khoury bag
[2023-04-28] MEDS: 0.9 % Sodium Chloride Flush 3 ML SYRINGE IVFLUSH (15:47)
[2023-04-28] MEDS: vancomycin/NS 2,000 MG/500 ML PLAST..BAG 250 MG IV (15:50)
[2023-04-28] MEDS: cefTRIAXone sodium 2 GM in 0.9 % Sodium Chloride 50 ML IV (15:53)
--- NOTE | 2023-04-28 15:57 | PHA.PROG ---
Admission Date/Time: April 28, 2023 09:00 Indication: bean viner infection Weight in k kg Adjusted body weight in K.24 kg Elsie body weight in K.4 kg Obesity Dosing Indication % IBW: 2.32 % Serum Creatinine - Last 168 Hours 04/27/23 20:20 Creatinine 1.04 Estimated CrCl and GFR - Last 168 Hours 04/27/23 20:20 Estim Creat Clear Calc 63.8 Estimated GFR 52 Vancomycin Loading Dose: 2000 mg Current Vancomycin Dosing Regimen: 750 mg Q12H Date and Time for next Vancomycin Level to be drawn: 04/29 @ 1400 Pharmacist Comments on Vancomycin Plan: Patient is current receiving load dose vanco 2000 mg start 04/28 @ 1550 Maintenance dose vancomycin 750 mg Q12H is scheduled to start 04/29 @ 0400. Predicted AUC is 571 with a trough of 19 Patient is morbidly obese therefore require carefully monitor due to vancomycin high volume of distribtuion. Trough will be drawn prior to 3th dose to assess safety and efficacy due to patient comorbidites Pharmacy will monitor renal function daily and adjust according Diane Pitts PharmD Vancomycin dosing will take advantage of [employer] as a clinical decision support tool that uses Bayesian modeling to calculate individual patient's pharmacokinetic parameters and forecast the patient's drug concentration time course with the target goal AUC 24 range of 400 - 600 mg/L/hr.
[2023-04-28] MEDS: Ampicillin Sodium 2 GM in 0.9 % Sodium Chloride 100 ML IV ×2 (16:08→21:49)
[2023-04-28 17:12] LABS: Glucose, Whole Blood 339 mg/dL (60-115)
--- NOTE | 2023-04-28 21:15 | W.PM.CCHP ---
Procedures Date of Service Date of Service: 04/28/23 Central Line Placement Left IJ: Central Line Comments: CONCENT BY hcp IN CHART Consent for Procedure: Emergent-no informed consent obtained Time out performed: Yes Sterile Technique Used: Yes Patient placed on monitor/pulse ox: Yes prep: mask, gown and gloves Central line prep: Chlorhexidine scrub Local anesthesia used: lidocaine 1% Amount of anesthesia used (ml): 5 Ultrasound used for placement: Yes Central line lumen inserted: triple Post procedure: sutured in place, good blood return, all ports aspirated, flushed, capped and sterile dressing applied Post procedure x-ray: tip of catheter in good position and no pneumothorax seen Patient tolerated procedure: well Complications: none
[2023-04-28] MEDS: Doxycycline Hyclate 100 MG in 0.9 % Sodium Chloride 250 ML 166.67 MG IV (21:51)
[2023-04-28 21:53] LABS: MANUAL DIFF FLAG NO
[2023-04-28 21:57] LABS: Basophils Percent Auto 0.1 % (0-2); Hematocrit 35.8 % (37.0-47.0); Hemoglobin 12.2 g/dl (12.0-16.0); Imm Gran Pct Auto 0.6 % (0.0-0.4); Lymphocytes Absolute Auto 2.1 X10*3/uL (1.2-4.9); Lymphocytes Percent Auto 11.9 % (20-40); Mean Corpuscular HGB Conc 34.1 g/dl (31.0-35.0); Mean Corpuscular Hemoglobin 29.7 pg (27.0-33.0); Mean Corpuscular Volume 87.1 fL (80.0-98.0); Mean Platelet Volume 11.5 fL (9.4-12.3); Monocytes Absolute Auto 1.5 X10*3/uL (0.1-1.2); Monocytes Percent Auto 8.5 % (2-11); Neutrophils Absolute Auto 13.6 x10*3/uL (2.0-8.3); Neutrophils Percent Auto 78.9 % (45-73); Platelet Count 288 X10*3/uL (160-400); Red Blood Count 4.11 X10*6/uL (4.20-5.50); Red Cell Distribution Width 13.2 % (11.0-16.0); White Blood Count 17.3 X10*3/uL (4.8-10.8)
[2023-04-28 22:15] LABS: VBG HCO3 22 mmol/L (22-26); VBG pCO2 30 mmHg; VBG pH 7.47 (7.32-7.43); VBG pO2 44 mmHg
[2023-04-28 22:18] LABS: Venous Blood Gas Refer to POC result
[2023-04-28 22:22] LABS: Alanine Aminotransferase 55 U/L (0-31); Albumin Level 3.9 g/dL (3.5-5.0); Alkaline Phosphatase 115 U/L (39-117); Anion Gap 16 (12-20); Aspartate Amino Transferase 47 U/L (5-31); Bilirubin Total 1.7 mg/dL (0.0-1.0); Blood Urea Nitrogen 34 mg/dL (9-16); C Reactive Protein 1.97 mg/dL (< or = 0.50); Calcium 9.1 mg/dL (8.4-10.2); Carbon Dioxide 23 mmol/L (22-29); Chloride 103 mmol/L (96-108); Creatinine Clr Calc Pharmacy 53.5; Estimated Glomerular Filt Rate 43; Glucose Random 329 mg/dL (60-115); Potassium 3.9 mmol/L (3.3-5.1); Sodium 138 mmol/L (135-145); Total Protein 7.2 g/dL (6.5-8.0)
[2023-04-28 22:35] LABS: Erythrocyte Sedimentation Rate 22 MM/HR (0-20)
[2023-04-28 22:58] LABS: Folate 13.8 ng/mL (> or = 4.0); Vitamin B12 554 pg/mL (200-900)
[2023-04-28 23:08] LABS: TSH reflex Free T4 2.44 uIU/mL (0.32-4.0)
[2023-04-28] MEDS: HYDROmorphone HCl 1 MG/ML SYRINGE IVPUSH (23:20)
[2023-04-28 23:33] LABS: Magnesium 1.7 mg/dL (1.6-2.6); Phosphorus 3.1 mg/dL (2.7-4.5)
[2023-04-28] MEDS: gadobutroL 10 ML VIAL IVPUSH (23:34)
[2023-04-28 23:53] LABS: Reflex Lactate? Lactic Acid Added
[2023-04-29] VITALS (18 sets, daily range): BP systolic 92–148; BP diastolic 36–102; PULSE 59–133; RESP 12–38; TEMP 36.2–38.5; O2SAT 89–98; BMI 50.0
[2023-04-29 00:28] LABS: Glucose, Whole Blood 286 mg/dL (60-115)
[2023-04-29] MEDS: Insulin Lispro 100 UNIT/ML 3 ML VIAL SUBCUT ×4 (00:59→17:15)
[2023-04-29] MEDS: 0.9 % Sodium Chloride Flush 3 ML SYRINGE IVFLUSH ×4 (00:59→20:19)
[2023-04-29] MEDS: Ampicillin Sodium 2 GM in 0.9 % Sodium Chloride 100 ML IV (01:01)
[2023-04-29] MEDS: cefTRIAXone sodium 2 GM in 0.9 % Sodium Chloride 50 ML IV ×2 (01:30→13:14)
[2023-04-29 02:30] LABS: ~Lactic Acid-LAB USE ONLY 1.7 mmol/L (0.5-2.0)
[2023-04-29] MEDS: LORazepam 2 MG/ML VIAL 1 MG IVPUSH ×2 (02:45→05:21)
--- NOTE | 2023-04-29 03:04 | HO.HCP_ITS ---
Health Care Proxy Invocation Health Care Proxy Declaration: I, Maninder Rojo PAC, on the date cited below, have determined that, the patient Mrs Charissa Nguyen, lacks the capacity to make or communicate, informed health care decision. This determination is made in accordance with accepted standards of medical judgment and pursuant to [place], the [place] Health Care Proxy Law. The cause, nature, extent and probable duration of the patient's inapacity are described below: Cause:Acute on Chronic Encephalopathy Nature: unclear Extent: chronic and incapacitating Probable Duration of Patient's Incapacity: long term acute care registered nurse Health Care Proxy Directions: at this time, I have reviewed the documentation on record, the patient does have a designated healthcare proxy which is her Mr. Joey Nguyen , I spoke to him today, he is able to make decisions for her, he did authorize verbally the placement of a central line as well as MRI for further evaluation of possible hyperdensities noted on CT of the head. Code status was clarified, remains full code
[2023-04-29] MEDS: vancomycin HCL 750 MG in 0.9 % Sodium Chloride 250 ML 265 MG IV (04:23)
[2023-04-29] MEDS: dexmedeTOMIDidine HCL/NS 400 MCG/100 ML INFUS..BTL 30.5 MCG IVCONT (05:22)
[2023-04-29 06:02] LABS: Glucose, Whole Blood 323 mg/dL (60-115)
[2023-04-29 06:11] LABS: Basophils Percent Auto 0.1 % (0-2); Eosinophils Percent Auto 0.1 % (0-4); Hematocrit 32.2 % (37.0-47.0); Hemoglobin 10.9 g/dl (12.0-16.0); Imm Gran Abs Auto 0.11 X10*3/uL (0.00-0.03); Imm Gran Pct Auto 0.7 % (0.0-0.4); Lymphocytes Absolute Auto 1.5 X10*3/uL (1.2-4.9); Lymphocytes Percent Auto 9.4 % (20-40); MANUAL DIFF FLAG SCAN; Mean Corpuscular HGB Conc 33.9 g/dl (31.0-35.0); Mean Corpuscular Hemoglobin 29.7 pg (27.0-33.0); Mean Corpuscular Volume 87.7 fL (80.0-98.0); Mean Platelet Volume 11.6 fL (9.4-12.3); Monocytes Absolute Auto 1.7 X10*3/uL (0.1-1.2); Monocytes Percent Auto 10.7 % (2-11); Neutrophils Absolute Auto 12.1 x10*3/uL (2.0-8.3); Platelet Count 234 X10*3/uL (160-400); Red Blood Count 3.67 X10*6/uL (4.20-5.50); Red Cell Distribution Width 13.2 % (11.0-16.0); SCAN SMEAR FLAG 1; White Blood Count 15.4 X10*3/uL (4.8-10.8)
[2023-04-29 06:30] LABS: SLIDE REVIEW VERIFIED
[2023-04-29 06:33] LABS: Anion Gap 16 (12-20); Blood Urea Nitrogen 34 mg/dL (9-16); Calcium 8.2 mg/dL (8.4-10.2); Carbon Dioxide 20 mmol/L (22-29); Chloride 107 mmol/L (96-108); Creatinine Clr Calc Pharmacy 51.3; Estimated Glomerular Filt Rate 39; Glucose Random 377 mg/dL (60-115); Potassium 3.6 mmol/L (3.3-5.1); Sodium 139 mmol/L (135-145)
[2023-04-29 06:35] LABS: Rheumatoid Factor < 13.0 IU/mL (<15.0)
[2023-04-29 06:50] LABS: Ferritin 173 ng/mL (10-250)
[2023-04-29] MEDS: Doxycycline Hyclate 100 MG in 0.9 % Sodium Chloride 250 ML 166.67 MG IV (08:06)
--- NOTE | 2023-04-29 08:07 | P.PNCC_ITS ---
Subjective Subjective Date of Service: 04/29/23 Interval History: interval improvement of encephalopathy; patient intermittently agitated, though re-directable, following commands Critical Care Time (minutes): 60 Physical Exam 2 Vital Signs: Vital Signs: Last Vital Signs Temp 101.0 F H 04/29/23 06:00 Pulse 83 04/29/23 06:00 Resp 14 04/29/23 06:00 BP 102/47 L 04/29/23 06:00 Pulse Ox 94 04/29/23 06:00 O2 Del Method Room Air 04/29/23 06:00 BMI result Body Mass Index 50.0 Const: Other: somnolent, though arousable w/ noxious stimulus General: healthy appearing, comfortable, no acute distress and well developed HEENT: Head: Yes normal to inspection, Yes normocephalic and Yes atraumatic Eyes: General: appearance normal, both eyes and all related structures Neck: Neck: Yes normal visual inspection, Yes full ROM, Yes supple, No positive Brudzinski's sign and No positive Kernig's sign Chest: Chest palpation & inspection: normal inspection of the chest Resp: Other: no appreciable rales, rhonchi, wheezing Effort & Inspection: normal respiratory effort Cardio: Rate: regular rate Rhythm: regular rhythm GI: Inspection: Yes normal to inspection, No Abdominal wall edema and No distended Palpation (GI): Soft to palpation, not firm, nontender, no guarding and not rigid Skin: General skin exam: no rashes or lesions noted Neuro: Other: intermittently following commands, though unable to full participate in full neurological exam General: tone normal, moves all extremities and no focal motor deficits Extrem: General: Yes normal to inspection, Yes capillary refill normal and Yes no clubbing, cyanosis or edema Psych: Other: intermittent agitation, though redirectable Objective Data Labs 04/29/23 05:57 04/29/23 05:57 Labs: Laboratory Results - last 24 hr 04/28/23 04/28/23 04/28/23 08:18 10:25 13:06 WBC RBC Hgb Hct MCV MCH MCHC RDW Plt Count MPV Immature Gran % (Auto) Neut % (Auto) Lymph % (Auto) [place] % (Auto) Eos % (Auto) Baso % (Auto) Lymph # (Auto) [place] # (Auto) Eos # (Auto) Baso # (Auto) Abs Immat Gran (auto) Absolute Neuts (auto) Absolute Nucleated RBC Nucleated RBC % (auto) Smear Tech's Comments ESR VBG pH VBG pCO2 VBG pO2 VBG HCO3 VBG O2 Saturation VBG Base Excess Sodium Potassium Chloride Carbon Dioxide Anion Gap BUN Creatinine Estim Creat Clear Calc Estimated GFR POC Glucose 284 H 292 H Random Glucose Lactic Acid Lactic Acid F/U @ 2Hr Calcium Phosphorus Magnesium Ferritin Total Bilirubin AST ALT Alkaline Phosphatase Total Creatine Kinase 115 C-Reactive Protein Total Protein Albumin Vitamin B12 Folate TSH Rheumatoid Factor 04/28/23 04/28/23 04/28/23 17:08 21:43 22:10 WBC 17.3 H RBC 4.11 L Hgb 12.2 Hct 35.8 L MCV 87.1 MCH 29.7 MCHC 34.1 RDW 13.2 Plt Count 288 MPV 11.5 Immature Gran % (Auto) 0.6 H Neut % (Auto) 78.9 H Lymph % (Auto) 11.9 L [place] % (Auto) 8.5 Eos % (Auto) 0.0 Baso % (Auto) 0.1 Lymph # (Auto) 2.1 [place] # (Auto) 1.5 H Eos # (Auto) 0.0 Baso # (Auto) 0.0 Abs Immat Gran (auto) 0.10 H Absolute Neuts (auto) 13.6 H Absolute Nucleated RBC 0.000 Nucleated RBC % (auto) 0.0 Smear Tech's Comments ESR 22 H VBG pH 7.47 H VBG pCO2 30 VBG pO2 44 VBG HCO3 22 VBG O2 Saturation 73.0 VBG Base Excess 0.0 Sodium 138 Potassium 3.9 Chloride 103 Carbon Dioxide 23 Anion Gap 16 BUN 34 H Creatinine 1.24 Estim Creat Clear Calc 53.5 Estimated GFR 43 POC Glucose 339 H Random Glucose 329 H Lactic Acid 3.0 H* Lactic Acid F/U @ 2Hr Calcium 9.1 Phosphorus 3.1 Magnesium 1.7 Ferritin Total Bilirubin 1.7 H AST 47 H ALT 55 H Alkaline Phosphatase 115 Total Creatine Kinase C-Reactive Protein 1.97 H Total Protein 7.2 Albumin 3.9 Vitamin B12 554 Folate 13.8 TSH 2.44 Rheumatoid Factor 04/29/23 04/29/23 04/29/23 00:24 01:32 05:57 WBC 15.4 H RBC 3.67 L Hgb 10.9 L Hct 32.2 L MCV 87.7 MCH 29.7 MCHC 33.9 RDW 13.2 Plt Count 234 MPV 11.6 Immature Gran % (Auto) 0.7 H Neut % (Auto) 79.0 H Lymph % (Auto) 9.4 L [place] % (Auto) 10.7 Eos % (Auto) 0.1 Baso % (Auto) 0.1 Lymph # (Auto) 1.5 [place] # (Auto) 1.7 H Eos # (Auto) 0.0 Baso # (Auto) 0.0 Abs Immat Gran (auto) 0.11 H Absolute Neuts (auto) 12.1 H Absolute Nucleated RBC 0.000 Nucleated RBC % (auto) 0.0 Smear Tech's Comments VERIFIED ESR VBG pH VBG pCO2 VBG pO2 VBG HCO3 VBG O2 Saturation VBG Base Excess Sodium 139 Potassium 3.6 Chloride 107 Carbon Dioxide 20 L Anion Gap 16 BUN 34 H Creatinine 1.33 Estim Creat Clear Calc 51.3 Estimated GFR 39 POC Glucose 286 H Random Glucose 377 H* Lactic Acid Lactic Acid F/U @ 2Hr 1.7 Calcium 8.2 L D Phosphorus Magnesium Ferritin 173 Total Bilirubin AST ALT Alkaline Phosphatase Total Creatine Kinase C-Reactive Protein Total Protein Albumin Vitamin B12 Folate TSH Rheumatoid Factor < 13.0 04/29/23 05:59 WBC RBC Hgb Hct MCV MCH MCHC RDW Plt Count MPV Immature Gran % (Auto) Neut % (Auto) Lymph % (Auto) [place] % (Auto) Eos % (Auto) Baso % (Auto) Lymph # (Auto) [place] # (Auto) Eos # (Auto) Baso # (Auto) Abs Immat Gran (auto) Absolute Neuts (auto) Absolute Nucleated RBC Nucleated RBC % (auto) Smear Tech's Comments ESR VBG pH VBG pCO2 VBG pO2 VBG HCO3 VBG O2 Saturation VBG Base Excess Sodium Potassium Chloride Carbon Dioxide Anion Gap BUN Creatinine Estim Creat Clear Calc Estimated GFR POC Glucose 323 H Random Glucose Lactic Acid Lactic Acid F/U @ 2Hr Calcium Phosphorus Magnesium Ferritin Total Bilirubin AST ALT Alkaline Phosphatase Total Creatine Kinase C-Reactive Protein Total Protein Albumin Vitamin B12 Folate TSH Rheumatoid Factor Progress Note: A&P Assessment and plan (1) Encephalopathy acute: Status: Acute (2) Acute febrile illness: Status: Acute (3) Migraine: Status: Acute (4) Obstructive sleep apnea: Status: Acute Plan Patient is a 72 Y F w/ complex history of migraines, p/w fever, encephalopathy, empirically treated for meningitis, admitted to ICU for closer monitoring N: c/f meningitis, treated empirically for viral, bacterial, and lyme meningitis; plan for LP w/ IR when available; MRI brain unremarkable; to follow- up EEG; appreciate neurology recommendations CV: no acute issues; hypertension R: no acute issues; maintaining airway despite encephalopathy GI: NPO while encephalopathic : no acute issues; to continue to monitor H: leukocytosis, improving; to continue to monitor ID: empiric viral, bacterial, and lyme meningitis coverage as described above; otherwise infectious work-up unrevealing E: diabetes mellitus c/b hyperglycemia; insulin regimen P: c/f psychiatric component to presentation as patient at times exhibits tonic- clonic movements, though re-directable during these episodes Quality Stroke Does the patient have a stroke diagnosis?: No VTE Prior VTE?: No VTE Risk Level:: Medical - moderate - high VTE Device Contraindication: Treatment Not Indicated VTE Drug Contraindication: N/A - Med Ordered
[2023-04-29 11:28] LABS: Glucose, Whole Blood 293 mg/dL (60-115)
--- NOTE | 2023-04-29 14:19 | HE.PHANOTE ---
RE: vanco Trough on 04/29 came back at 11, renal function worsening. Decreased dose to 500mg Q12H with predicted trough of 14.8 mg/L, AUC of 428 mg/L. Next level to be drawn 04/30 @1400
[2023-04-29] MEDS: vancomycin HCL 500 MG in 0.9 % Sodium Chloride 100 ML 110 MG IV (15:00)
--- NOTE | 2023-04-29 16:48 | PC.NURSE ---
Patient refusing water at this time for bedside swallow eval - MD at bedside - hold PO medication at this time per MD. Speech eval ordered.
[2023-04-29 17:01] LABS: Glucose, Whole Blood 241 mg/dL (60-115)
[2023-04-29] MEDS: Sodium Chloride 0.45 % 1,000 ML 100 ML IVCONT (17:15)
--- NOTE | 2023-04-29 17:45 | HO.PM.IMPN ---
Subjective Subjective Date of Service: 04/29/23 Interval History: Patient seen and examined; transfer of care from ICU discussed with Dr. Kennedy. Patient was admitted to the ICU due to febrile encephalopathy, experiencing temperatures up to 103 degrees Fahrenheit. She is receiving broad-spectrum antibiotics (Vanco, Doxy, Ceftriaxone, and Acyclovir). The patient has previously presented similarly, undergoing extensive workups including LPs that yielded unhelpful results; however, her is vehemently opposed to another LP. Presently, she remains highly confused, unable to follow directions, though not agitated. An RN attempted a bedside swallow evaluation, but she was unable to comply with commands. The acknowledges some improvement compared to earlier. Past occurrences similar to this have been attributed to complex migraines. Review of Systems Unable to obtain Physical Exam Vital Signs: Vital Signs: Last Vital Signs Temp 97.2 F 04/29/23 15:51 Pulse 72 04/29/23 15:51 Resp 14 04/29/23 15:51 BP 132/60 04/29/23 15:51 Pulse Ox 97 04/29/23 15:51 O2 Del Method Room Air 04/29/23 15:51 BMI result Body Mass Index 50.0 Const: Other: General: Alert but very confused, and not orriented at all Resp: CTA bilateral CVS: S1,S2,RRR GI: +BS, NT, no distention Skin: No rash Neuro: motor grossly intact Psych: flat Objective Data Active Medications Dextrose (Dextrose 50 % 25 Gm/50 Ml Syringe) 25 gm IVPUSH Q15M PRN; Protocol PRN Reason: per Hypoglycemia Standing Ord. Enoxaparin Sodium (Enoxaparin Sodium 40 Mg/0.4 Ml Syringe) 40 mg SUBCUT Q24H [facility] Last Admin: 04/28/23 10:09 Dose: Not Given Documented By: ELLIOT Non-Admin Reason: Patient Asleep Glucose (Glucose Gel 15 Gm Gel..Gram.) 15 gm PO Q15M PRN; Protocol PRN Reason: per Hypoglycemia Standing Ord. Hydralazine HCl (Hydralazine Hcl 20 Mg/Ml Vial) 5 mg IVPUSH Q4H PRN; Protocol PRN Reason: Hypertension Acyclovir Sodium 800 mg/ (Sodium Chloride) 266 mls @ 266 mls/hr IV Q8H [facility] Last Infusion: 04/29/23 13:10 Dose: Infused Documented By: ESTHER Ceftriaxone Sodium 2 gm/ (Sodium Chloride) 50 mls @ 100 mls/hr IV Q12H [facility] Last Infusion: 04/29/23 13:46 Dose: Infused Documented By: ESTHER Doxycycline Hyclate 100 mg/ (Sodium Chloride) 250 mls @ 166.67 mls/hr IV Q12H [facility] Last Infusion: 04/29/23 09:56 Dose: Infused Documented By: ESTHER Acetaminophen (Ofirmev) 1,000 mg in 100 mls @ 400 mls/hr IV Q6H PRN PRN Reason: Fever Vancomycin HCl 500 mg/ Sodium (Chloride) 110 mls @ 110 mls/hr IV Q12H [facility] Last Infusion: 04/29/23 16:16 Dose: Infused Documented By: IVY Sodium Chloride (Sodium Chloride 0.45 %) 1,000 mls @ 100 mls/hr IVCONT .Q10H [facility] Last Admin: 04/29/23 17:15 Dose: 100 mls/hr Documented By: IVY Insulin Human Lispro (Insulin Lispro 100 Unit/Ml 3 Ml Vial) 0 unit SUBCUT Q6H [facility]; Protocol Last Admin: 04/29/23 17:15 Dose: 4 unit Documented By: IVY Levothyroxine Sodium (Levothyroxine Sodium 125 Mcg Tablet) 125 mcg PO DAILY [facility] Last Admin: 04/29/23 16:47 Dose: Not Given Documented By: IVY Non-Admin Reason: HOLD PER DR JAMESON Melatonin (Melatonin 3 Mg Tablet) 6 mg PO BEDTIME [facility] Non-Formulary Medication (Ubrogepant [Ubrelvy]) 100 mg PO DAILY MRX1 PRN PRN Reason: Migraine Headache Ondansetron HCl (Ondansetron Hcl 4 Mg/2 Ml Vial) 4 mg IVPUSH Q8H PRN PRN Reason: Nausea and Vomiting Pharmacy Consult (Consult Rx Vancomycin Dosing) 1 each MISCELLANE DAILY PRN PRN Reason: Consult order Sodium Chloride (0.9 % Sodium Chloride Flush 3 Ml Syringe) 3 ml IVFLUSH QSHIFT [facility] Last Admin: 04/29/23 14:59 Dose: 3 ml Documented By: ESTHER Vitamin D (Cholecalciferol (Vitamin D3) 25 Mcg Tablet) 25 mcg PO DAILY [facility] Labs 04/29/23 05:57 04/29/23 05:57 Labs: Laboratory Results - last 24 hr 04/28/23 04/28/23 04/29/23 21:43 22:10 00:24 MCV 87.1 MCH 29.7 MCHC 34.1 RDW 13.2 Plt Count 288 MPV 11.5 Immature Gran % (Auto) 0.6 H Neut % (Auto) 78.9 H Lymph % (Auto) 11.9 L [place] % (Auto) 8.5 Eos % (Auto) 0.0 Baso % (Auto) 0.1 Lymph # (Auto) 2.1 [place] # (Auto) 1.5 H Eos # (Auto) 0.0 Baso # (Auto) 0.0 Abs Immat Gran (auto) 0.10 H Absolute Neuts (auto) 13.6 H Absolute Nucleated RBC 0.000 Nucleated RBC % (auto) 0.0 Smear Tech's Comments ESR 22 H VBG pH 7.47 H VBG pCO2 30 VBG pO2 44 VBG HCO3 22 VBG O2 Saturation 73.0 VBG Base Excess 0.0 Anion Gap 16 Estim Creat Clear Calc 53.5 Estimated GFR 43 POC Glucose 286 H Random Glucose 329 H Lactic Acid 3.0 H* Lactic Acid F/U @ 2Hr Calcium 9.1 Phosphorus 3.1 Magnesium 1.7 Ferritin Total Bilirubin 1.7 H AST 47 H ALT 55 H Alkaline Phosphatase 115 C-Reactive Protein 1.97 H Total Protein 7.2 Albumin 3.9 Vitamin B12 554 Folate 13.8 TSH 2.44 Random Vancomycin Rheumatoid Factor 04/29/23 04/29/23 04/29/23 01:32 05:57 05:59 MCV 87.7 MCH 29.7 MCHC 33.9 RDW 13.2 Plt Count 234 MPV 11.6 Immature Gran % (Auto) 0.7 H Neut % (Auto) 79.0 H Lymph % (Auto) 9.4 L [place] % (Auto) 10.7 Eos % (Auto) 0.1 Baso % (Auto) 0.1 Lymph # (Auto) 1.5 [place] # (Auto) 1.7 H Eos # (Auto) 0.0 Baso # (Auto) 0.0 Abs Immat Gran (auto) 0.11 H Absolute Neuts (auto) 12.1 H Absolute Nucleated RBC 0.000 Nucleated RBC % (auto) 0.0 Smear Tech's Comments VERIFIED ESR VBG pH VBG pCO2 VBG pO2 VBG HCO3 VBG O2 Saturation VBG Base Excess Anion Gap 16 Estim Creat Clear Calc 51.3 Estimated GFR 39 POC Glucose 323 H Random Glucose 377 H* Lactic Acid Lactic Acid F/U @ 2Hr 1.7 Calcium 8.2 L D Phosphorus Magnesium Ferritin 173 Total Bilirubin AST ALT Alkaline Phosphatase C-Reactive Protein Total Protein Albumin Vitamin B12 Folate TSH Random Vancomycin Rheumatoid Factor < 13.0 04/29/23 04/29/23 04/29/23 11:24 13:45 16:58 MCV MCH MCHC RDW Plt Count MPV Immature Gran % (Auto) Neut % (Auto) Lymph % (Auto) [place] % (Auto) Eos % (Auto) Baso % (Auto) Lymph # (Auto) [place] # (Auto) Eos # (Auto) Baso # (Auto) Abs Immat Gran (auto) Absolute Neuts (auto) Absolute Nucleated RBC Nucleated RBC % (auto) Smear Tech's Comments ESR VBG pH VBG pCO2 VBG pO2 VBG HCO3 VBG O2 Saturation VBG Base Excess Anion Gap Estim Creat Clear Calc Estimated GFR POC Glucose 293 H 241 H Random Glucose Lactic Acid Lactic Acid F/U @ 2Hr Calcium Phosphorus Magnesium Ferritin Total Bilirubin AST ALT Alkaline Phosphatase C-Reactive Protein Total Protein Albumin Vitamin B12 Folate TSH Random Vancomycin 11.0 L Rheumatoid Factor Assessment and Plan (1) Acute febrile illness: Status: Acute (2) Encephalopathy acute: Status: Acute (3) Anxiety: Status: Acute (4) Migraine: Status: Acute Plan 72-year-old female with pertinent history of complex migraine, insulin-dependent diabetes mellitus, mood disorder, hypothyroidism, mixed hyperlipidemia who presented with headaches, altered mentation and fever, concern for encephalitis vs meningitis. Acute encephalopathy, headache with fever, likely due to complex migraine versus malignant catatonia. Neurology has recommended Acyclovir and LP, however and HCP has declined LP, fortunately fever has resolved. Cultures thus far negative, tick borne panel pending -Continue Ceftriaxone, Vanco, Doxy and Acyclovir until reviewed by ID Hypothyroidism: IV synthroid at half the usual dose. Insulin-dependent diabetes mellitus with hyperglycemia. While NPO, do sliding scale, and hold long acting insulin, unless sugars are very high, follow BMP Mood disorder: hold PO meds, as not safe to give oral at this time, may resort to IV benzo or Psychotropic for extreme agitation Morbdi obesity--weight loss will be advise HTN--hold PO meds, IV hydralazine PRN Neuropathy--hold neurontin IVF while NPO DVT prophylaxis: Lovenox Full code NPO until mentation improves and passes swallow monique Care discussed with at bedside Quality Stroke Does the patient have a stroke diagnosis?: No VTE Prior VTE?: No VTE Risk Level:: Medical - moderate - high VTE Device Contraindication: Treatment Not Indicated VTE Drug Contraindication: N/A - Med Ordered
[2023-04-29 18:47] LABS: Anion Gap 13 (12-20); Blood Urea Nitrogen 32 mg/dL (9-16); Calcium 8.4 mg/dL (8.4-10.2); Carbon Dioxide 25 mmol/L (22-29); Chloride 109 mmol/L (96-108); Creatinine Clr Calc Pharmacy 62.6; Estimated Glomerular Filt Rate 50; Glucose Random 263 mg/dL (60-115); Potassium 3.4 mmol/L (3.3-5.1); Sodium 144 mmol/L (135-145)
[2023-04-29] MEDS: Doxycycline Hyclate 100 MG in 0.9 % Sodium Chloride 250 ML 166.7 MG IV (20:13)
[2023-04-29] MEDS: ondansetron HCL 4 MG/2 ML VIAL IVPUSH (22:37)
[2023-04-29 23:35] LABS: Glucose, Whole Blood 218 mg/dL (60-115)
[2023-04-30] MEDS: Insulin Lispro 100 UNIT/ML 3 ML VIAL SUBCUT ×4 (00:03→18:16)
[2023-04-30] MEDS: Sodium Chloride 0.45 % 1,000 ML 100 ML IVCONT ×3 (00:05→23:34)
[2023-04-30 02:36] VITALS: BP 144/65; PULSE 85; TEMP 36.3; O2SAT 93
[2023-04-30] MEDS: cefTRIAXone sodium 2 GM in 0.9 % Sodium Chloride 50 ML IV ×2 (02:43→13:34)
[2023-04-30 03:28] VITALS: BP 113/53; PULSE 94; RESP 19; TEMP 36.3; O2SAT 96
[2023-04-30] MEDS: vancomycin HCL 500 MG in 0.9 % Sodium Chloride 100 ML 110 MG IV (03:34)
[2023-04-30] MEDS: Levothyroxine Sodium 100 MCG/5 ML VIAL 60 MCG IVPUSH (05:19)
[2023-04-30 05:44] LABS: Glucose, Whole Blood 225 mg/dL (60-115)
--- NOTE | 2023-04-30 06:29 | PC.NURSE ---
puriwk catheter drained 100ml since khoury d/c'd approx 3pm in icu...bladder scanned 616ml...hospitalist updated...straight cath 600ml allen urine
[2023-04-30 07:11] VITALS: BP 158/62; PULSE 89; RESP 20; TEMP 36.2; O2SAT 96
[2023-04-30 08:08] LABS: MANUAL DIFF FLAG NO
[2023-04-30 08:11] LABS: Basophils Percent Auto 0.3 % (0-2); Eosinophils Absolute Auto 0.1 X10*3/uL (0.0-0.4); Eosinophils Percent Auto 0.9 % (0-4); Hematocrit 34.1 % (37.0-47.0); Hemoglobin 11.1 g/dl (12.0-16.0); Imm Gran Abs Auto 0.08 X10*3/uL (0.00-0.03); Imm Gran Pct Auto 0.6 % (0.0-0.4); Lymphocytes Absolute Auto 2.4 X10*3/uL (1.2-4.9); Lymphocytes Percent Auto 16.8 % (20-40); Mean Corpuscular HGB Conc 32.6 g/dl (31.0-35.0); Mean Corpuscular Hemoglobin 29.8 pg (27.0-33.0); Mean Corpuscular Volume 91.7 fL (80.0-98.0); Mean Platelet Volume 11.5 fL (9.4-12.3); Monocytes Absolute Auto 1.3 X10*3/uL (0.1-1.2); Monocytes Percent Auto 9.1 % (2-11); Neutrophils Absolute Auto 10.1 x10*3/uL (2.0-8.3); Neutrophils Percent Auto 72.3 % (45-73); Platelet Count 235 X10*3/uL (160-400); Red Blood Count 3.72 X10*6/uL (4.20-5.50); Red Cell Distribution Width 13.4 % (11.0-16.0)
[2023-04-30 08:24] LABS: Anion Gap 13 (12-20); Blood Urea Nitrogen 27 mg/dL (9-16); Calcium 8.2 mg/dL (8.4-10.2); Carbon Dioxide 24 mmol/L (22-29); Chloride 109 mmol/L (96-108); Creatinine Clr Calc Pharmacy 74.2; Estimated Glomerular Filt Rate > 60; Glucose Random 236 mg/dL (60-115); Potassium 3.5 mmol/L (3.3-5.1); Sodium 142 mmol/L (135-145)
[2023-04-30] MEDS: Doxycycline Hyclate 100 MG in 0.9 % Sodium Chloride 250 ML 166.67 MG IV ×2 (09:31→20:21)
[2023-04-30 10:53] LABS: Glucose, Whole Blood 223 mg/dL (60-115)
--- NOTE | 2023-04-30 10:59 | MHC.SL.SWA ---
Speech Pathologist Impression: Oral phase dysphagia Risk of Aspiration Due to: Reduced Cognition Dysphasia Diet Status: No change Liquid Consistency and Strategies for Safe Swallow: Liquid Intake Recommendation: Thin Liquid Intake Strategies: Small Sips Solid Food Consistency: Dietary Recommendations: Regular Additional Modifications to Solid Foods: Pt seen for bedside dysphagia evaluation this morning. Pt's states that pt has no trouble swallowing at home and that she typically prefers to use a straw when drinking liquids. Pt did have trouble feeding herself, appeared confused and unable to hold utensils. She did well with feeding, tolerated sips of liquids via spoon and straw with no overt s/s of aspiration. Mildly prolonged mastication on harder solids, but with complete clearance on dry swallow. Recommend REGULAR solids and THIN liquids, pills CRUSHED in PUREE. Pt requires total 1:1 assistance and is recommended strict aspiration precautions given her change in mentation. POPULATION HEALTH COACH to f/u 1x to ensure tolerance. Oral Medication Intake: Crushed with Puree Please contact the pharmacy regarding appropriate crushable or liquid drug formulations that are available whenever modified delivery is recommended. Compensatory Strategies and Precautions to be Taken for Safe Swallow: Sitting Upright (90 deg) Double Swallow Small Bites and Sips Alternate Liquids/Solids Rate of Ingestion Change Oral Check Supervision While Eating and Drinking for Safe Swallow: Total Assistance (1:1) Swallowing Recommended Treatments: Compens. Strategy Educat. Recommendation for Speech: Inpatient Speech Therapy Comment: 1 f/u Fight Manager Clinican/Clinical Fellow: No Supervisory Statement: I have reviewed and agree with the student/clinical fellow's documentation: N/A Speech Language Pathologist: Vania Taylor M.A., CCC-POPULATION HEALTH COACH
[2023-04-30 11:06] VITALS: BP 181/66; PULSE 80; RESP 20; TEMP 36.4; O2SAT 95
--- NOTE | 2023-04-30 12:19 | HO.PM.IMPN ---
Subjective Subjective Date of Service: 04/30/23 Interval History: f/u on encephalopathy, febrile illness. Patient is still confused but seemingly better than yesterday, there is no fever. Cultures are negative, she passed swallow eval this morning Review of Systems Unable to obtain Physical Exam Vital Signs: Vital Signs: Last Vital Signs Temp 97.5 F 04/30/23 11:06 Pulse 80 04/30/23 11:06 Resp 20 04/30/23 11:06 BP 181/66 H 04/30/23 11:06 Pulse Ox 95 04/30/23 11:06 O2 Del Method Room Air 04/30/23 11:06 BMI result Body Mass Index 50.0 Const: Other: General: Alert but very confused, and not orriented at all Resp: CTA bilateral CVS: S1,S2,RRR GI: +BS, NT, no distention Skin: No rash Neuro: motor grossly intact Psych: pleasantly confused Objective Data Active Medications Atorvastatin Calcium (Atorvastatin Calcium 20 Mg Tablet) 20 mg PO BEDTIME [facility] Clonidine HCl (Clonidine Hcl 0.1 Mg Tablet) 0.1 mg PO BID [facility]; Protocol Dextrose (Dextrose 50 % 25 Gm/50 Ml Syringe) 25 gm IVPUSH Q15M PRN; Protocol PRN Reason: per Hypoglycemia Standing Ord. Enoxaparin Sodium (Enoxaparin Sodium 40 Mg/0.4 Ml Syringe) 40 mg SUBCUT Q24H [facility] Last Admin: 04/28/23 10:09 Dose: Not Given Documented By: LELIOT Non-Admin Reason: Patient Asleep Glucose (Glucose Gel 15 Gm Gel..Gram.) 15 gm PO Q15M PRN; Protocol PRN Reason: per Hypoglycemia Standing Ord. Hydralazine HCl (Hydralazine Hcl 20 Mg/Ml Vial) 5 mg IVPUSH Q4H PRN; Protocol PRN Reason: Hypertension Acyclovir Sodium 800 mg/ (Sodium Chloride) 266 mls @ 266 mls/hr IV Q8H [facility] Last Infusion: 04/30/23 06:27 Dose: Infused Documented By: LUCIE Ceftriaxone Sodium 2 gm/ (Sodium Chloride) 50 mls @ 100 mls/hr IV Q12H [facility] Last Infusion: 04/30/23 03:33 Dose: Infused Documented By: LUCIE Doxycycline Hyclate 100 mg/ (Sodium Chloride) 250 mls @ 166.67 mls/hr IV Q12H [facility] Last Infusion: 04/30/23 11:33 Dose: Infused Documented By: JANELLE Acetaminophen (Ofirmev) 1,000 mg in 100 mls @ 400 mls/hr IV Q6H PRN PRN Reason: Fever Sodium Chloride (Sodium Chloride 0.45 %) 1,000 mls @ 100 mls/hr IVCONT .Q10H [facility] Last Infusion: 04/30/23 09:31 Dose: Infused Documented By: JANELLE Vancomycin HCl 750 mg/ Sodium (Chloride) 265 mls @ 265 mls/hr IV Q12H [facility] Insulin Human Lispro (Insulin Lispro 100 Unit/Ml 3 Ml Vial) 0 unit SUBCUT Q6H [facility]; Protocol Last Admin: 04/30/23 05:39 Dose: 4 unit Documented By: LUCIE Levothyroxine Sodium (Levothyroxine Sodium 100 Mcg/5 Ml Vial) 60 mcg IVPUSH DAILY@0600 [facility] Last Admin: 04/30/23 05:19 Dose: 60 mcg Documented By: LUCIE Lorazepam (Lorazepam 0.5 Mg Tablet) 0.5 mg PO BID PRN PRN Reason: anxiety/restlessness Non-Formulary Medication (Ubrogepant [Ubrelvy]) 100 mg PO DAILY MRX1 PRN PRN Reason: Migraine Headache Ondansetron HCl (Ondansetron Hcl 4 Mg/2 Ml Vial) 4 mg IVPUSH Q8H PRN PRN Reason: Nausea and Vomiting Last Admin: 04/29/23 22:37 Dose: 4 mg Documented By: LUCIE Pharmacy Consult (Consult Rx Vancomycin Dosing) 1 each MISCELLANE DAILY PRN PRN Reason: Consult order Sodium Chloride (0.9 % Sodium Chloride Flush 3 Ml Syringe) 3 ml IVFLUSH QSHIFT [facility] Last Admin: 04/30/23 09:14 Dose: Not Given Documented By: JANELLE Non-Admin Reason: IV Running Vitamin D (Cholecalciferol (Vitamin D3) 25 Mcg Tablet) 25 mcg PO DAILY [facility] Last Admin: 04/30/23 09:14 Dose: Not Given Documented By: JANELLE Non-Admin Reason: patient NPO Labs 04/30/23 08:01 04/30/23 08:01 Labs: Laboratory Results - last 24 hr 04/29/23 04/29/23 04/29/23 13:45 16:58 17:59 MCV MCH MCHC RDW Plt Count MPV Immature Gran % (Auto) Neut % (Auto) Lymph % (Auto) [place] % (Auto) Eos % (Auto) Baso % (Auto) Lymph # (Auto) [place] # (Auto) Eos # (Auto) Baso # (Auto) Abs Immat Gran (auto) Absolute Neuts (auto) Absolute Nucleated RBC Nucleated RBC % (auto) Anion Gap 13 Estim Creat Clear Calc 62.6 Estimated GFR 50 POC Glucose 241 H Random Glucose 263 H Calcium 8.4 Random Vancomycin 11.0 L 04/29/23 04/30/23 04/30/23 23:31 05:39 08:01 MCV 91.7 MCH 29.8 MCHC 32.6 RDW 13.4 Plt Count 235 MPV 11.5 Immature Gran % (Auto) 0.6 H Neut % (Auto) 72.3 Lymph % (Auto) 16.8 L [place] % (Auto) 9.1 Eos % (Auto) 0.9 Baso % (Auto) 0.3 Lymph # (Auto) 2.4 [place] # (Auto) 1.3 H Eos # (Auto) 0.1 Baso # (Auto) 0.0 Abs Immat Gran (auto) 0.08 H Absolute Neuts (auto) 10.1 H Absolute Nucleated RBC 0.000 Nucleated RBC % (auto) 0.0 Anion Gap 13 Estim Creat Clear Calc 74.2 Estimated GFR > 60 POC Glucose 218 H 225 H Random Glucose 236 H Calcium 8.2 L Random Vancomycin 04/30/23 10:49 MCV MCH MCHC RDW Plt Count MPV Immature Gran % (Auto) Neut % (Auto) Lymph % (Auto) [place] % (Auto) Eos % (Auto) Baso % (Auto) Lymph # (Auto) [place] # (Auto) Eos # (Auto) Baso # (Auto) Abs Immat Gran (auto) Absolute Neuts (auto) Absolute Nucleated RBC Nucleated RBC % (auto) Anion Gap Estim Creat Clear Calc Estimated GFR POC Glucose 223 H Random Glucose Calcium Random Vancomycin Microbiology Microbiology Results: Microbiology 04/28/23 21:43 Blood Culture - Preliminary Blood - Venous No growth after 24 hours. 04/28/23 21:43 Blood Culture - Preliminary Blood - Venous No growth after 24 hours. Assessment and Plan (1) Acute febrile illness: Status: Acute (2) Encephalopathy acute: Status: Acute (3) Anxiety: Status: Acute (4) Migraine: Status: Acute Plan 72-year-old female with pertinent history of complex migraine, insulin-dependent diabetes mellitus, mood disorder, hypothyroidism, mixed hyperlipidemia who presented with headaches, altered mentation and fever, concern for encephalitis vs meningitis. Acute encephalopathy, headache with fever, likely due to complex migraine vs encephalitis. Neurology has recommended Acyclovir and LP, however and HCP has declined LP, fortunately fever has resolved. Cultures thus far negative, tick borne panel pending -Continue Ceftriaxone, Vanco, Doxy and Acyclovir until reviewed by ID by ID and or final cultures negative Hypothyroidism: IV synthroid will be changed back to oral regimen Insulin-dependent diabetes mellitus with hyperglycemia. While NPO was on SSI, Can restart Lantus at lower dose when eating Morbdi obesity--weight loss will be advise HTN--BP high, restart oral Clonidine and PRN hydralazine Neuropathy--hold neurontin as speech recommend crushing Will stop IVF once eating and drinking adequately DVT prophylaxis: Lovenox Full code Need for inpatient: Acute encephalopathy with ongoing workup and testing and not near baseline for dc Quality Stroke Does the patient have a stroke diagnosis?: No VTE Prior VTE?: No VTE Risk Level:: Medical - moderate - high VTE Device Contraindication: Treatment Not Indicated VTE Drug Contraindication: N/A - Med Ordered
[2023-04-30] MEDS: cloNIDine HCL 0.1 MG TABLET PO ×2 (12:36→20:19)
[2023-04-30 13:29] LABS: Lyme Abs Screen <0.90 index
[2023-04-30 14:58] LABS: Vancomycin Trough 8.3 mcg/mL (10.0-20.0)
--- NOTE | 2023-04-30 15:26 | HE.PHANOTE ---
RE: VANCO DOSING Based on random comes back at 8.3 on 04/30/23 14:29 with sCr of 0.92 and CrCl of 74.2 and indication of BROADCASTER infection, dose increase to 1000mg q12h starting at 04/30/23 1600. Nex random is scheduled for 05/01/23 1400.
[2023-04-30 16:00] VITALS: BP 174/72; PULSE 80; RESP 20; TEMP 36.4; O2SAT 95
[2023-04-30] MEDS: Insulin Glargine,Hum.rec.anlog 100 UNIT/ML 10 ML VIAL 30 UNIT SUBCUT (16:21)
[2023-04-30] MEDS: 0.9 % Sodium Chloride Flush 3 ML SYRINGE IVFLUSH ×2 (16:22→20:23)
[2023-04-30] MEDS: vancomycin HCL 1,000 MG in 0.9 % Sodium Chloride 250 ML 270 MG IV (16:22)
--- NOTE | 2023-04-30 16:30 | PC.NURSE ---
Patient was not able to void on her own today. Bladder scanned at 1600 showing 800mls. MD notified, per MD straight cath. patient. Patient straight cathed at 1630 for 850 mls of clear yellow urine.
[2023-04-30 17:36] LABS: Thyroid Stimulating Hormone 3.39 uIU/mL (0.32-4.0)
[2023-04-30 17:43] LABS: Glucose, Whole Blood 270 mg/dL (60-115)
[2023-04-30 17:51] LABS: Vitamin B12 510 pg/mL (200-900)
[2023-04-30 19:40] VITALS: BP 167/67; PULSE 98; RESP 22; TEMP 36.8; O2SAT 96
[2023-04-30] MEDS: LORazepam 0.5 MG TABLET PO (20:19)
[2023-04-30] MEDS: Atorvastatin Calcium 20 MG TABLET PO (20:19)
[2023-05-01] VITALS (7 sets, daily range): BP systolic 94–160; BP diastolic 47–89; PULSE 90–108; RESP 17–20; TEMP 36.1–37; O2SAT 93–96
[2023-05-01 00:17] LABS: Glucose, Whole Blood 228 mg/dL (60-115)
[2023-05-01] MEDS: OLANZapine 10 MG VIAL 5 MG IM (00:19)
[2023-05-01] MEDS: Insulin Lispro 100 UNIT/ML 3 ML VIAL SUBCUT ×5 (00:20→23:45)
[2023-05-01] MEDS: LORazepam 2 MG/ML VIAL 1 MG IVPUSH (01:37)
[2023-05-01] MEDS: cefTRIAXone sodium 2 GM in 0.9 % Sodium Chloride 50 ML IV ×2 (01:37→14:03)
[2023-05-01] MEDS: OLANZapine 10 MG VIAL IM ×2 (02:54→23:40)
[2023-05-01] MEDS: vancomycin HCL 1,000 MG in 0.9 % Sodium Chloride 250 ML 270 MG IV (03:30)
[2023-05-01 03:53] LABS: A. Phagocytphilium DNA,RT-PCR NOT DETECTED (NOT DETECTED); Babesia Microti DNA, RT-PCR NOT DETECTED (NOT DETECTED); Borrelia Miyamotoi,DNA RT-PCR NOT DETECTED (NOT DETECTED); E.Chaffeensis DNA RT-PCR NOT DETECTED (NOT DETECTED); Lyme(Borrelia ssp)DNA RT-PCR NOT DETECTED (NOT DETECTED)
[2023-05-01] MEDS: Levothyroxine Sodium 125 MCG TABLET PO (06:05)
[2023-05-01 06:55] LABS: Glucose, Whole Blood 175 mg/dL (60-115)
[2023-05-01 07:20] LABS: MANUAL DIFF FLAG NO
[2023-05-01 07:32] LABS: Basophils Percent Auto 0.2 % (0-2); Eosinophils Absolute Auto 0.3 X10*3/uL (0.0-0.4); Eosinophils Percent Auto 2.1 % (0-4); Hematocrit 32.6 % (37.0-47.0); Hemoglobin 10.8 g/dl (12.0-16.0); Imm Gran Abs Auto 0.08 X10*3/uL (0.00-0.03); Imm Gran Pct Auto 0.6 % (0.0-0.4); Lymphocytes Absolute Auto 3.1 X10*3/uL (1.2-4.9); Lymphocytes Percent Auto 23.1 % (20-40); Mean Corpuscular HGB Conc 33.1 g/dl (31.0-35.0); Mean Corpuscular Hemoglobin 29.6 pg (27.0-33.0); Mean Corpuscular Volume 89.3 fL (80.0-98.0); Mean Platelet Volume 11.2 fL (9.4-12.3); Monocytes Absolute Auto 1.3 X10*3/uL (0.1-1.2); Monocytes Percent Auto 9.6 % (2-11); Neutrophils Absolute Auto 8.6 x10*3/uL (2.0-8.3); Neutrophils Percent Auto 64.4 % (45-73); Platelet Count 223 X10*3/uL (160-400); Red Blood Count 3.65 X10*6/uL (4.20-5.50); Red Cell Distribution Width 13.1 % (11.0-16.0); White Blood Count 13.3 X10*3/uL (4.8-10.8)
[2023-05-01] MEDS: cloNIDine HCL 0.1 MG TABLET PO ×2 (07:43→19:42)
[2023-05-01] MEDS: Cholecalciferol (Vitamin D3) 25 MCG TABLET PO (07:45)
[2023-05-01 07:51] LABS: Anion Gap 11 (12-20); Blood Urea Nitrogen 16 mg/dL (9-16); Calcium 8.5 mg/dL (8.4-10.2); Carbon Dioxide 23 mmol/L (22-29); Chloride 112 mmol/L (96-108); Creatinine Clr Calc Pharmacy 79.4; Estimated Glomerular Filt Rate > 60; Glucose Random 199 mg/dL (60-115); Potassium 3.2 mmol/L (3.3-5.1); Sodium 143 mmol/L (135-145)
[2023-05-01] MEDS: 0.9 % Sodium Chloride Flush 3 ML SYRINGE IVFLUSH ×2 (07:52→19:42)
[2023-05-01] MEDS: Doxycycline Hyclate 100 MG in 0.9 % Sodium Chloride 250 ML 166.67 MG IV ×2 (07:53→19:42)
[2023-05-01] MEDS: Sodium Chloride 0.45 % 1,000 ML 100 ML IVCONT ×2 (08:01→16:40)
[2023-05-01] MEDS: Potassium Chloride Packet 20 MEQ PACKET 40 MEQ PO (10:15)
[2023-05-01 11:55] LABS: Glucose, Whole Blood 199 mg/dL (60-115)
[2023-05-01] MEDS: LORazepam 0.5 MG TABLET PO (12:08)
[2023-05-01] MEDS: OLANZapine 10 MG VIAL 2.5 MG IM (13:52)
--- NOTE | 2023-05-01 14:08 | HO.PM.IMPN ---
Subjective Subjective Date of Service: 05/02/23 Interval History: f/u on encephalopathy, febrile illness. 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, since yesterday Review of Systems Unable to obtain Physical Exam Vital Signs: Vital Signs: Last Vital Signs Temp 98.6 F 05/01/23 07:25 Pulse 108 H 05/01/23 11:38 Resp 17 05/01/23 11:38 BP 94/47 L 05/01/23 11:38 Pulse Ox 95 05/01/23 11:38 O2 Del Method Room Air 05/01/23 11:38 BMI result Body Mass Index 50.0 Objective Data Active Medications Atorvastatin Calcium (Atorvastatin Calcium 20 Mg Tablet) 20 mg PO BEDTIME [facility] Last Admin: 04/30/23 20:19 Dose: 20 mg Documented By: DAPHNE Clonidine HCl (Clonidine Hcl 0.1 Mg Tablet) 0.1 mg PO BID [facility]; Protocol Last Admin: 05/01/23 07:43 Dose: 0.1 mg Documented By: RODOLFO Dextrose (Dextrose 50 % 25 Gm/50 Ml Syringe) 25 gm IVPUSH Q15M PRN; Protocol PRN Reason: per Hypoglycemia Standing Ord. Enoxaparin Sodium (Enoxaparin Sodium 40 Mg/0.4 Ml Syringe) 40 mg SUBCUT Q24H [facility] Last Admin: 04/28/23 10:09 Dose: Not Given Documented By: ELLIOT Non-Admin Reason: Patient Asleep Glucose (Glucose Gel 15 Gm Gel..Gram.) 15 gm PO Q15M PRN; Protocol PRN Reason: per Hypoglycemia Standing Ord. Hydralazine HCl (Hydralazine Hcl 20 Mg/Ml Vial) 5 mg IVPUSH Q4H PRN; Protocol PRN Reason: Hypertension Ceftriaxone Sodium 2 gm/ (Sodium Chloride) 50 mls @ 100 mls/hr IV Q12H [facility] Last Infusion: 05/01/23 02:29 Dose: Infused Documented By: DAPHNE Doxycycline Hyclate 100 mg/ (Sodium Chloride) 250 mls @ 166.67 mls/hr IV Q12H [facility] Last Infusion: 05/01/23 09:38 Dose: Infused Documented By: RODOLFO Acetaminophen (Ofirmev) 1,000 mg in 100 mls @ 400 mls/hr IV Q6H PRN PRN Reason: Fever Sodium Chloride (Sodium Chloride 0.45 %) 1,000 mls @ 100 mls/hr IVCONT .Q10H [facility] Last Admin: 05/01/23 08:01 Dose: 100 mls/hr Documented By: RODOLFO Vancomycin HCl 1,000 mg/ (Sodium Chloride) 270 mls @ 270 mls/hr IV Q12H [facility] Last Infusion: 05/01/23 04:43 Dose: Infused Documented By: DAPHNE Acyclovir Sodium 800 mg/ (Sodium Chloride) 266 mls @ 266 mls/hr IV Q8H [facility] Last Infusion: 05/01/23 07:03 Dose: Infused Documented By: DAPHNE Insulin Human Lispro (Insulin Lispro 100 Unit/Ml 3 Ml Vial) 0 unit SUBCUT Q6H [facility]; Protocol Last Admin: 05/01/23 12:10 Dose: 2 unit Documented By: RODOLFO Levothyroxine Sodium (Levothyroxine Sodium 125 Mcg Tablet) 125 mcg PO DAILY@0600 [facility] Last Admin: 05/01/23 06:05 Dose: 125 mcg Documented By: DAPHNE Lorazepam (Lorazepam 0.5 Mg Tablet) 0.5 mg PO BID PRN PRN Reason: anxiety/restlessness Last Admin: 05/01/23 12:08 Dose: 0.5 mg Documented By: RODOLFO Non-Formulary Medication (Ubrogepant [Ubrelvy]) 100 mg PO DAILY MRX1 PRN PRN Reason: Migraine Headache Ondansetron HCl (Ondansetron Hcl 4 Mg/2 Ml Vial) 4 mg IVPUSH Q8H PRN PRN Reason: Nausea and Vomiting Last Admin: 04/29/23 22:37 Dose: 4 mg Documented By: LUCIE Pharmacy Consult (Consult Rx Vancomycin Dosing) 1 each MISCELLANE DAILY PRN PRN Reason: Consult order Sodium Chloride (0.9 % Sodium Chloride Flush 3 Ml Syringe) 3 ml IVFLUSH QSHIFT [facility] Last Admin: 05/01/23 07:52 Dose: 3 ml Documented By: RODOLFO Vitamin D (Cholecalciferol (Vitamin D3) 25 Mcg Tablet) 25 mcg PO DAILY [facility] Last Admin: 05/01/23 07:45 Dose: 25 mcg Documented By: RODOLFO Labs 05/02/23 07:00 05/02/23 07:00 Labs: Laboratory Results - last 24 hr 04/28/23 04/29/23 04/30/23 21:43 05:57 08:01 MCV MCH MCHC RDW Plt Count MPV Immature Gran % (Auto) Neut % (Auto) Lymph % (Auto) [place] % (Auto) Eos % (Auto) Baso % (Auto) Lymph # (Auto) [place] # (Auto) Eos # (Auto) Baso # (Auto) Abs Immat Gran (auto) Absolute Neuts (auto) Absolute Nucleated RBC Nucleated RBC % (auto) Anion Gap Estim Creat Clear Calc Estimated GFR POC Glucose Random Glucose Calcium Magnesium Vitamin B12 510 Folate 12.0 TSH 3.39 Vancomycin Trough A.phagocytophil DNA PCR NOT DETECTED Babesia microti DNA PCR NOT DETECTED Borrelia sp DNA (PCR) NOT DETECTED Lyme Progressive Test TNP Borrelia miyamotoi (PCR) NOT DETECTED E.chaffeensis DNA (PCR) NOT DETECTED Tick-borne Disease PCR SEE NOTE 04/30/23 04/30/23 05/01/23 14:29 17:38 00:08 MCV MCH MCHC RDW Plt Count MPV Immature Gran % (Auto) Neut % (Auto) Lymph % (Auto) [place] % (Auto) Eos % (Auto) Baso % (Auto) Lymph # (Auto) [place] # (Auto) Eos # (Auto) Baso # (Auto) Abs Immat Gran (auto) Absolute Neuts (auto) Absolute Nucleated RBC Nucleated RBC % (auto) Anion Gap Estim Creat Clear Calc Estimated GFR POC Glucose 270 H 228 H Random Glucose Calcium Magnesium Vitamin B12 Folate TSH Vancomycin Trough 8.3 L A.phagocytophil DNA PCR Babesia microti DNA PCR Borrelia sp DNA (PCR) Lyme Progressive Test Borrelia miyamotoi (PCR) E.chaffeensis DNA (PCR) Tick-borne Disease PCR 05/01/23 05/01/23 05/01/23 06:49 07:09 11:51 MCV 89.3 MCH 29.6 MCHC 33.1 RDW 13.1 Plt Count 223 MPV 11.2 Immature Gran % (Auto) 0.6 H Neut % (Auto) 64.4 Lymph % (Auto) 23.1 [place] % (Auto) 9.6 Eos % (Auto) 2.1 Baso % (Auto) 0.2 Lymph # (Auto) 3.1 [place] # (Auto) 1.3 H Eos # (Auto) 0.3 Baso # (Auto) 0.0 Abs Immat Gran (auto) 0.08 H Absolute Neuts (auto) 8.6 H Absolute Nucleated RBC 0.000 Nucleated RBC % (auto) 0.0 Anion Gap 11 L Estim Creat Clear Calc 79.4 Estimated GFR > 60 POC Glucose 175 H 199 H Random Glucose 199 H Calcium 8.5 Magnesium 2.0 Vitamin B12 Folate TSH Vancomycin Trough A.phagocytophil DNA PCR Babesia microti DNA PCR Borrelia sp DNA (PCR) Lyme Progressive Test Borrelia miyamotoi (PCR) E.chaffeensis DNA (PCR) Tick-borne Disease PCR Microbiology Microbiology Results: Microbiology 04/28/23 21:43 Blood Culture - Preliminary Blood - Venous No growth after 48 hours. 04/28/23 21:43 Blood Culture - Preliminary Blood - Venous No growth after 48 hours. Assessment and Plan (1) Acute febrile illness: Status: Acute (2) Encephalopathy acute: Status: Acute (3) Anxiety: Status: Acute (4) Migraine: Status: Acute Plan 72-year-old female with pertinent history of complex migraine, insulin-dependent diabetes mellitus, mood disorder, hypothyroidism, mixed hyperlipidemia who presented with headaches, altered mentation and fever, concern for encephalitis vs meningitis. Acute encephalopathy, headache with fever, attributed complex migraine vs encephalitis. Neurology has recommended Acyclovir and LP, however and HCP has declined LP. Fever has resolved. Blood culture negative > 48 hours so Vanco discontinued, tick borne panel negative except for Babesia that is still pending. -Continue Ceftriaxone, Doxy and Acyclovir for - Will revisit LP with -TSH, B12, Folate all unremarkable. Check Ammonia -Awaiting Psych consult -Zyprexa for agitation and combativness, until further recommendation by Psych Hypothyroidism: continue Levothyroxine and if not taking it by mouth, change to IV Insulin-dependent diabetes mellitus with hyperglycemia. Continue SSI, and hold Lantus, unless she's eating Morbdi obesity--To loose weight HTN--BP high, continue Clonidine and PRN hydralazine if BP to high not able to take meds, clonidine patch if not able to take by mouth Neuropathy--hold neurontin as speech recommend crushing Hypokalemia-replace with IV or po DVT prophylaxis: Lovenox Full code Need for inpatient: Acute encephalopathy with ongoing workup and testing and not near baseline for dc Quality Stroke Does the patient have a stroke diagnosis?: No VTE Prior VTE?: No VTE Risk Level:: Medical - moderate - high VTE Device Contraindication: Treatment Not Indicated VTE Drug Contraindication: N/A - Med Ordered
[2023-05-01 18:26] LABS: Glucose, Whole Blood 230 mg/dL (60-115)
[2023-05-01] MEDS: Atorvastatin Calcium 20 MG TABLET PO (19:42)
[2023-05-01 23:49] LABS: Glucose, Whole Blood 182 mg/dL (60-115)
[2023-05-02] VITALS (7 sets, daily range): BP systolic 129–170; BP diastolic 60–89; PULSE 78–100; RESP 18–23; TEMP 36.2–36.8; O2SAT 94–98
--- NOTE | 2023-05-02 | ECG_ITS ---
Test Reason : Check QTC Blood Pressure : / mmHG Vent. Rate : 097 BPM Atrial Rate : 097 BPM P-R Int : 198 ms QRS Dur : 090 ms QT Int : 378 ms P-R-T Axes : 019 062 -57 degrees QTc Int : 480 ms Normal sinus rhythm with sinus arrhythmia ST & T wave abnormality, consider inferior ischemia Abnormal ECG When compared with ECG of 27-APR-2023 21:18, T wave inversion now evident in Inferior leads Referred By: Allen Baeza Electronically Signed By:GLADYS ALONZO MD
[2023-05-02] MEDS: LORazepam 0.5 MG TABLET PO (01:57)
[2023-05-02] MEDS: cefTRIAXone sodium 2 GM in 0.9 % Sodium Chloride 50 ML IV ×2 (02:00→13:51)
[2023-05-02] MEDS: Levothyroxine Sodium 125 MCG TABLET PO (05:40)
[2023-05-02 07:13] LABS: Glucose, Whole Blood 220 mg/dL (60-115)
[2023-05-02 07:19] LABS: MANUAL DIFF FLAG NO
[2023-05-02 07:25] LABS: Basophils Absolute Auto 0.1 X10*3/uL (0.0-0.2); Basophils Percent Auto 0.5 % (0-2); Eosinophils Absolute Auto 0.4 X10*3/uL (0.0-0.4); Eosinophils Percent Auto 3.2 % (0-4); Hematocrit 32.2 % (37.0-47.0); Hemoglobin 10.8 g/dl (12.0-16.0); Imm Gran Pct Auto 0.8 % (0.0-0.4); Lymphocytes Absolute Auto 2.4 X10*3/uL (1.2-4.9); Lymphocytes Percent Auto 19.4 % (20-40); Mean Corpuscular HGB Conc 33.5 g/dl (31.0-35.0); Mean Corpuscular Hemoglobin 30.3 pg (27.0-33.0); Mean Corpuscular Volume 90.2 fL (80.0-98.0); Mean Platelet Volume 11.8 fL (9.4-12.3); Monocytes Absolute Auto 1.2 X10*3/uL (0.1-1.2); Monocytes Percent Auto 9.9 % (2-11); Neutrophils Percent Auto 66.2 % (45-73); Platelet Count 246 X10*3/uL (160-400); Red Blood Count 3.57 X10*6/uL (4.20-5.50); Red Cell Distribution Width 13.2 % (11.0-16.0); White Blood Count 12.1 X10*3/uL (4.8-10.8)
[2023-05-02 07:40] LABS: Alanine Aminotransferase 36 U/L (0-31); Albumin Level 3.3 g/dL (3.5-5.0); Alkaline Phosphatase 100 U/L (39-117); Anion Gap 14 (12-20); Aspartate Amino Transferase 41 U/L (5-31); Bilirubin Total 1.2 mg/dL (0.0-1.0); Blood Urea Nitrogen 13 mg/dL (9-16); Calcium 8.5 mg/dL (8.4-10.2); Carbon Dioxide 22 mmol/L (22-29); Chloride 110 mmol/L (96-108); Creatinine Clr Calc Pharmacy 75.8; Estimated Glomerular Filt Rate > 60; Glucose Random 223 mg/dL (60-115); Potassium 3.2 mmol/L (3.3-5.1); Sodium 143 mmol/L (135-145); Total Protein 6.1 g/dL (6.5-8.0)
[2023-05-02] MEDS: Cholecalciferol (Vitamin D3) 25 MCG TABLET PO (08:59)
[2023-05-02] MEDS: cloNIDine HCL 0.1 MG TABLET PO ×2 (09:00→21:02)
[2023-05-02] MEDS: Insulin Lispro 100 UNIT/ML 3 ML VIAL SUBCUT ×3 (09:03→16:52)
[2023-05-02] MEDS: 0.9 % Sodium Chloride Flush 3 ML SYRINGE IVFLUSH ×3 (09:04→21:10)
[2023-05-02] MEDS: Doxycycline Hyclate 100 MG in 0.9 % Sodium Chloride 250 ML 166.67 MG IV ×2 (09:12→20:56)
--- NOTE | 2023-05-02 10:09 | MHC.SLORD ---
Addendum entered and electronically signed by BRITTANY Shaw 05/02/23 14:12: Attempted to see patient at lunch, patient refused lunch. Original Note: Speech Language Pathology Order Status: Attempted to see patient at breakfast to monitor toleration of diet. Nursing reports patient refused breakfast today and yesterday. [employer] attempted to offer breakfast, patient reported she already ate and refused PO w/ [employer]. RN reports pt tolerating pills w/ pudding. [employer] to re-attempt dysphagia tx for lunch.
[2023-05-02] MEDS: OLANZapine 10 MG VIAL 2.5 MG IM ×2 (10:27→12:02)
[2023-05-02 11:15] LABS: Glucose, Whole Blood 196 mg/dL (60-115)
[2023-05-02 11:19] LABS: Ammonia 26 umol/L (13-55)
[2023-05-02] MEDS: Potassium Chloride Packet 20 MEQ PACKET 40 MEQ PO (12:01)
--- NOTE | 2023-05-02 13:29 | P.CNPS_ITS ---
History of Present Illness Chief Complaint: Headache [facility] Medical History Encephalitis Hypothyroid HTN (hypertension) HLD (hyperlipidemia) Diabetes Complicated migraine Surgical History Hx of left mastectomy Hx of cholecystectomy H/O section Diagnostics Vital Signs (24Hr): Vital Signs - 24 hr 05/01/23 15:29 05/01/23 19:56 05/01/23 23:30 Temperature 98.4 F 98.5 F Pulse Rate 94 102 H 101 H Respiratory Rate 19 20 20 Blood Pressure 154/72 H 153/74 H 150/64 H Pulse Oximetry 96 95 94 Oxygen Delivery Method Room Air Room Air Room Air 05/02/23 03:45 05/02/23 07:32 05/02/23 11:19 Temperature 98.1 F 97.1 F 97.5 F Pulse Rate 88 94 100 Respiratory Rate 20 18 18 Blood Pressure 161/88 H 143/74 H 129/89 Pulse Oximetry 98 96 96 Oxygen Delivery Method Room Air Room Air Room Air BMI result Body Mass Index 50.0 Labs 05/02/23 07:00 05/02/23 07:00 Labs: Laboratory Results - last 48 hr 04/28/23 04/29/23 04/30/23 21:43 05:57 08:01 WBC RBC Hgb Hct MCV MCH MCHC RDW Plt Count MPV Immature Gran % (Auto) Neut % (Auto) Lymph % (Auto) Jasper % (Auto) Eos % (Auto) Baso % (Auto) Lymph # (Auto) Jasper # (Auto) Eos # (Auto) Baso # (Auto) Abs Immat Gran (auto) Absolute Neuts (auto) Absolute Nucleated RBC Nucleated RBC % (auto) Sodium Potassium Chloride Carbon Dioxide Anion Gap BUN Creatinine Estim Creat Clear Calc Estimated GFR POC Glucose Random Glucose Calcium Magnesium Total Bilirubin AST ALT Alkaline Phosphatase Ammonia Total Protein Albumin Vitamin B12 510 Folate 12.0 TSH 3.39 Vancomycin Trough Random Vancomycin A.phagocytophil DNA PCR NOT DETECTED Babesia microti DNA PCR NOT DETECTED Borrelia sp DNA (PCR) NOT DETECTED Lyme Screen IgG & IgM <0.90 Lyme Progressive Test TNP Borrelia miyamotoi (PCR) NOT DETECTED E.chaffeensis DNA (PCR) NOT DETECTED Tick-borne Disease PCR SEE NOTE 04/30/23 04/30/23 05/01/23 14:29 17:38 00:08 WBC RBC Hgb Hct MCV MCH MCHC RDW Plt Count MPV Immature Gran % (Auto) Neut % (Auto) Lymph % (Auto) Jasper % (Auto) Eos % (Auto) Baso % (Auto) Lymph # (Auto) Jasper # (Auto) Eos # (Auto) Baso # (Auto) Abs Immat Gran (auto) Absolute Neuts (auto) Absolute Nucleated RBC Nucleated RBC % (auto) Sodium Potassium Chloride Carbon Dioxide Anion Gap BUN Creatinine Estim Creat Clear Calc Estimated GFR POC Glucose 270 H 228 H Random Glucose Calcium Magnesium Total Bilirubin AST ALT Alkaline Phosphatase Ammonia Total Protein Albumin Vitamin B12 Folate TSH Vancomycin Trough 8.3 L Random Vancomycin A.phagocytophil DNA PCR Babesia microti DNA PCR Borrelia sp DNA (PCR) Lyme Screen IgG & IgM Lyme Progressive Test Borrelia miyamotoi (PCR) E.chaffeensis DNA (PCR) Tick-borne Disease PCR 05/01/23 05/01/23 05/01/23 06:49 07:09 11:51 WBC 13.3 H RBC 3.65 L Hgb 10.8 L Hct 32.6 L MCV 89.3 MCH 29.6 MCHC 33.1 RDW 13.1 Plt Count 223 MPV 11.2 Immature Gran % (Auto) 0.6 H Neut % (Auto) 64.4 Lymph % (Auto) 23.1 Jasper % (Auto) 9.6 Eos % (Auto) 2.1 Baso % (Auto) 0.2 Lymph # (Auto) 3.1 Jasper # (Auto) 1.3 H Eos # (Auto) 0.3 Baso # (Auto) 0.0 Abs Immat Gran (auto) 0.08 H Absolute Neuts (auto) 8.6 H Absolute Nucleated RBC 0.000 Nucleated RBC % (auto) 0.0 Sodium 143 Potassium 3.2 L Chloride 112 H Carbon Dioxide 23 Anion Gap 11 L BUN 16 Creatinine 0.86 Estim Creat Clear Calc 79.4 Estimated GFR > 60 POC Glucose 175 H 199 H Random Glucose 199 H Calcium 8.5 Magnesium 2.0 Total Bilirubin AST ALT Alkaline Phosphatase Ammonia Total Protein Albumin Vitamin B12 Folate TSH Vancomycin Trough Random Vancomycin A.phagocytophil DNA PCR Babesia microti DNA PCR Borrelia sp DNA (PCR) Lyme Screen IgG & IgM Lyme Progressive Test Borrelia miyamotoi (PCR) E.chaffeensis DNA (PCR) Tick-borne Disease PCR 05/01/23 05/01/23 05/01/23 14:36 18:22 23:41 WBC RBC Hgb Hct MCV MCH MCHC RDW Plt Count MPV Immature Gran % (Auto) Neut % (Auto) Lymph % (Auto) Jasper % (Auto) Eos % (Auto) Baso % (Auto) Lymph # (Auto) Jasper # (Auto) Eos # (Auto) Baso # (Auto) Abs Immat Gran (auto) Absolute Neuts (auto) Absolute Nucleated RBC Nucleated RBC % (auto) Sodium Potassium Chloride Carbon Dioxide Anion Gap BUN Creatinine Estim Creat Clear Calc Estimated GFR POC Glucose 230 H 182 H Random Glucose Calcium Magnesium Total Bilirubin AST ALT Alkaline Phosphatase Ammonia Total Protein Albumin Vitamin B12 Folate TSH Vancomycin Trough Random Vancomycin 11.0 L A.phagocytophil DNA PCR Babesia microti DNA PCR Borrelia sp DNA (PCR) Lyme Screen IgG & IgM Lyme Progressive Test Borrelia miyamotoi (PCR) E.chaffeensis DNA (PCR) Tick-borne Disease PCR 05/02/23 05/02/23 05/02/23 07:00 07:10 10:58 WBC 12.1 H RBC 3.57 L Hgb 10.8 L Hct 32.2 L MCV 90.2 MCH 30.3 MCHC 33.5 RDW 13.2 Plt Count 246 MPV 11.8 Immature Gran % (Auto) 0.8 H Neut % (Auto) 66.2 Lymph % (Auto) 19.4 L Jasper % (Auto) 9.9 Eos % (Auto) 3.2 Baso % (Auto) 0.5 Lymph # (Auto) 2.4 Jasper # (Auto) 1.2 Eos # (Auto) 0.4 Baso # (Auto) 0.1 Abs Immat Gran (auto) 0.10 H Absolute Neuts (auto) 8.0 Absolute Nucleated RBC 0.000 Nucleated RBC % (auto) 0.0 Sodium 143 Potassium 3.2 L Chloride 110 H Carbon Dioxide 22 Anion Gap 14 BUN 13 Creatinine 0.90 Estim Creat Clear Calc 75.8 Estimated GFR > 60 POC Glucose 220 H 196 H Random Glucose 223 H Calcium 8.5 Magnesium Total Bilirubin 1.2 H AST 41 H ALT 36 H Alkaline Phosphatase 100 Ammonia Total Protein 6.1 L Albumin 3.3 L Vitamin B12 Folate TSH Vancomycin Trough Random Vancomycin A.phagocytophil DNA PCR Babesia microti DNA PCR Borrelia sp DNA (PCR) Lyme Screen IgG & IgM Lyme Progressive Test Borrelia miyamotoi (PCR) E.chaffeensis DNA (PCR) Tick-borne Disease PCR 05/02/23 11:01 WBC RBC Hgb Hct MCV MCH MCHC RDW Plt Count MPV Immature Gran % (Auto) Neut % (Auto) Lymph % (Auto) Jasper % (Auto) Eos % (Auto) Baso % (Auto) Lymph # (Auto) Jasper # (Auto) Eos # (Auto) Baso # (Auto) Abs Immat Gran (auto) Absolute Neuts (auto) Absolute Nucleated RBC Nucleated RBC % (auto) Sodium Potassium Chloride Carbon Dioxide Anion Gap BUN Creatinine Estim Creat Clear Calc Estimated GFR POC Glucose Random Glucose Calcium Magnesium Total Bilirubin AST ALT Alkaline Phosphatase Ammonia 26 Total Protein Albumin Vitamin B12 Folate TSH Vancomycin Trough Random Vancomycin A.phagocytophil DNA PCR Babesia microti DNA PCR Borrelia sp DNA (PCR) Lyme Screen IgG & IgM Lyme Progressive Test Borrelia miyamotoi (PCR) E.chaffeensis DNA (PCR) Tick-borne Disease PCR Imaging Radiology Impressions: ITS Impressions Chest X-Ray 04/28/23 14:00 IMPRESSION: Limited exam. Question atelectasis or small infiltrates at lung bases. Follow-up chest x-ray recommended. Head CT 04/28/23 17:49 IMPRESSION: Query new 4 mm hyperdensity in the right espinoza radiata best appreciated on image 175, series 7 with adjacent mild hypodensity, may reflect focal hemorrhage and vasogenic edema, for which further characterization with contrast-enhanced brain MRI is advised. This was communicated to Dr. Kathie Robin on 04/28/2023 at 6:11 PM. Chest X-Ray 04/28/23 21:25 IMPRESSION: Left jugular line tip projects over SVC. No pneumothorax. Question atelectasis or small infiltrate at the left lung base. Brain MRI 04/28/23 23:40 IMPRESSION: No MR correlate corresponding to previously queried hyperdensity in the right espinoza radiata, most compatible with artifact than prior examination. No acute intracranial abnormality. Medications Medications Current Medications Atorvastatin Calcium (Atorvastatin Calcium 20 Mg Tablet) 20 mg PO BEDTIME [facility] Last Admin: 05/01/23 19:42 Dose: 20 mg Clonidine HCl (Clonidine Hcl 0.1 Mg Tablet) 0.1 mg PO BID [facility]; Protocol Last Admin: 05/02/23 09:00 Dose: 0.1 mg Dextrose (Dextrose 50 % 25 Gm/50 Ml Syringe) 25 gm IVPUSH Q15M PRN; Protocol PRN Reason: per Hypoglycemia Standing Ord. Enoxaparin Sodium (Enoxaparin Sodium 40 Mg/0.4 Ml Syringe) 40 mg SUBCUT Q24H [facility] Last Admin: 04/28/23 10:09 Dose: Not Given Glucose (Glucose Gel 15 Gm Gel..Gram.) 15 gm PO Q15M PRN; Protocol PRN Reason: per Hypoglycemia Standing Ord. Hydralazine HCl (Hydralazine Hcl 20 Mg/Ml Vial) 5 mg IVPUSH Q4H PRN; Protocol PRN Reason: Hypertension Ceftriaxone Sodium 2 gm/ (Sodium Chloride) 50 mls @ 100 mls/hr IV Q12H [facility] Last Infusion: 05/02/23 03:35 Dose: Infused Doxycycline Hyclate 100 mg/ (Sodium Chloride) 250 mls @ 166.67 mls/hr IV Q12H [facility] Last Infusion: 05/02/23 10:46 Dose: Infused Acetaminophen (Ofirmev) 1,000 mg in 100 mls @ 400 mls/hr IV Q6H PRN PRN Reason: Fever Acyclovir Sodium 800 mg/ (Sodium Chloride) 266 mls @ 266 mls/hr IV Q8H [facility] Last Infusion: 05/02/23 06:50 Dose: Infused Insulin Human Lispro (Insulin Lispro 100 Unit/Ml 3 Ml Vial) 0 unit SUBCUT Q6H [facility]; Protocol Last Admin: 05/02/23 12:04 Dose: 2 unit Levothyroxine Sodium (Levothyroxine Sodium 125 Mcg Tablet) 125 mcg PO DAILY@0600 [facility] Last Admin: 05/02/23 05:40 Dose: 125 mcg Lorazepam (Lorazepam 0.5 Mg Tablet) 0.5 mg PO BID PRN PRN Reason: anxiety/restlessness Last Admin: 05/02/23 01:57 Dose: 0.5 mg Non-Formulary Medication (Ubrogepant [Ubrelvy]) 100 mg PO DAILY MRX1 PRN PRN Reason: Migraine Headache Ondansetron HCl (Ondansetron Hcl 4 Mg/2 Ml Vial) 4 mg IVPUSH Q8H PRN PRN Reason: Nausea and Vomiting Last Admin: 04/29/23 22:37 Dose: 4 mg Sodium Chloride (0.9 % Sodium Chloride Flush 3 Ml Syringe) 3 ml IVFLUSH QSHIFT [facility] Last Admin: 05/02/23 09:04 Dose: 3 ml Vitamin D (Cholecalciferol (Vitamin D3) 25 Mcg Tablet) 25 mcg PO DAILY [facility] Last Admin: 05/02/23 08:59 Dose: 25 mcg Allergies Allergies Allergy/AdvReac Type Severity Reaction Status Date / Time Iodinated Contrast Media Allergy Severe SEDATION,TA Verified 04/27/23 20:02 [IVP DYE] CHYCARDIA azithromycin Allergy Unknown Hives Verified 04/27/23 20:02 erythromycin base Allergy Unknown HIVES Verified 04/27/23 20:02 [ERYTHROMYCIN BASE] metformin AdvReac Unknown Diarrhea Verified 04/27/23 20:02 Assessment & Plan Total time managing care of this patient today ____ minutes.
[2023-05-02] MEDS: Valproic Acid (as Sodium Salt) 125 MG in Dextrose 5 % 50 ML 52.5 MG IV (15:30)
[2023-05-02 15:50] LABS: Glucose, Whole Blood 158 mg/dL (60-115)
--- NOTE | 2023-05-02 20:08 | PM.EVENT ---
Event Note Date of Service: 05/02/23 Event Note: Seen by Psych with recommendation for trial of Depakote which didn't seem to do much and now further recommendation for seroquel 25 TID, QTC is ok on ECG. Run it by ICU for possible continuing sedation, not deemed apropriate at this time. Also adding morphine PRN for Pain along with IV Tylenol Time Spent With Patient Time: Total time managing care of this patient today ____ minutes.
[2023-05-02 20:19] LABS: Anion Gap 11 (12-20); Blood Urea Nitrogen 12 mg/dL (9-16); Calcium 8.5 mg/dL (8.4-10.2); Carbon Dioxide 25 mmol/L (22-29); Chloride 111 mmol/L (96-108); Creatinine Clr Calc Pharmacy 76.7; Estimated Glomerular Filt Rate > 60; Glucose Random 180 mg/dL (60-115); Potassium 3.3 mmol/L (3.3-5.1); Sodium 144 mmol/L (135-145)
[2023-05-02] MEDS: Acetaminophen 1,000 MG/100 ML PIGGYBACK 400 MG IV (20:52)
[2023-05-02] MEDS: QUEtiapine Fumarate 25 MG TABLET PO (21:02)
[2023-05-02] MEDS: Atorvastatin Calcium 20 MG TABLET PO (21:02)
[2023-05-02] MEDS: Morphine Sulfate 2 MG/ML CARTRIDGE IVPUSH (22:37)
[2023-05-03] VITALS (9 sets, daily range): BP systolic 92–169; BP diastolic 40–88; PULSE 79–109; RESP 18–22; TEMP 36.3–37.3; O2SAT 92–95
[2023-05-03] MEDS: Valproic Acid (as Sodium Salt) 125 MG in Dextrose 5 % 50 ML IV (00:21)
[2023-05-03 00:34] LABS: Glucose, Whole Blood 174 mg/dL (60-115)
[2023-05-03] MEDS: cefTRIAXone sodium 2 GM in 0.9 % Sodium Chloride 50 ML IV ×2 (02:14→14:07)
[2023-05-03] MEDS: Potassium Chloride/H20 10 MEQ/100 ML PIGGYBACK 100 MEQ IV ×4 (02:14→05:32)
[2023-05-03] MEDS: LORazepam 0.5 MG TABLET PO (02:43)
[2023-05-03] MEDS: Morphine Sulfate 2 MG/ML CARTRIDGE IVPUSH (03:41)
[2023-05-03 05:25] LABS: Glucose, Whole Blood 180 mg/dL (60-115)
[2023-05-03] MEDS: Insulin Lispro 100 UNIT/ML 3 ML VIAL SUBCUT ×2 (05:35→17:09)
[2023-05-03] MEDS: Valproic Acid (as Sodium Salt) 125 MG in Dextrose 5 % 50 ML 52.4 MG IV (06:32)
[2023-05-03 07:02] LABS: MANUAL DIFF FLAG NO
[2023-05-03 07:05] LABS: Basophils Percent Auto 0.2 % (0-2); Eosinophils Absolute Auto 0.4 X10*3/uL (0.0-0.4); Eosinophils Percent Auto 2.8 % (0-4); Hematocrit 31.2 % (37.0-47.0); Hemoglobin 10.5 g/dl (12.0-16.0); Imm Gran Abs Auto 0.11 X10*3/uL (0.00-0.03); Imm Gran Pct Auto 0.9 % (0.0-0.4); Lymphocytes Absolute Auto 2.4 X10*3/uL (1.2-4.9); Lymphocytes Percent Auto 18.5 % (20-40); Mean Corpuscular HGB Conc 33.7 g/dl (31.0-35.0); Mean Corpuscular Volume 89.1 fL (80.0-98.0); Monocytes Absolute Auto 1.3 X10*3/uL (0.1-1.2); Neutrophils Absolute Auto 8.7 x10*3/uL (2.0-8.3); Neutrophils Percent Auto 67.6 % (45-73); Platelet Count 237 X10*3/uL (160-400); Red Cell Distribution Width 13.4 % (11.0-16.0); White Blood Count 12.9 X10*3/uL (4.8-10.8)
[2023-05-03 07:19] LABS: Alanine Aminotransferase 34 U/L (0-31); Albumin Level 3.3 g/dL (3.5-5.0); Alkaline Phosphatase 93 U/L (39-117); Anion Gap 18 (12-20); Aspartate Amino Transferase 36 U/L (5-31); Blood Urea Nitrogen 12 mg/dL (9-16); Calcium 8.3 mg/dL (8.4-10.2); Carbon Dioxide 21 mmol/L (22-29); Chloride 110 mmol/L (96-108); Creatinine Clr Calc Pharmacy 78.5; Estimated Glomerular Filt Rate > 60; Glucose Random 210 mg/dL (60-115); Potassium 3.8 mmol/L (3.3-5.1); Sodium 145 mmol/L (135-145); Total Protein 6.1 g/dL (6.5-8.0)
[2023-05-03] MEDS: Doxycycline Hyclate 100 MG in 0.9 % Sodium Chloride 250 ML 166.67 MG IV ×2 (09:20→22:05)
[2023-05-03] MEDS: Levothyroxine Sodium 125 MCG TABLET PO (09:20)
[2023-05-03] MEDS: Cholecalciferol (Vitamin D3) 25 MCG TABLET PO (09:20)
[2023-05-03] MEDS: 0.9 % Sodium Chloride Flush 3 ML SYRINGE IVFLUSH ×3 (09:20→22:31)
[2023-05-03] MEDS: QUEtiapine Fumarate 25 MG TABLET PO ×2 (09:20→22:04)
[2023-05-03] MEDS: cloNIDine HCL 0.1 MG TABLET PO ×2 (09:20→22:04)
[2023-05-03 11:41] LABS: Glucose, Whole Blood 210 mg/dL (60-115)
--- NOTE | 2023-05-03 12:03 | P.PNIM_ITS ---
Subjective Subjective Date of Service: 05/04/23 Interval History: Being followed for acute encephalopathy, events from last night noted patient was unable to sleep at night but this morning as per sitter patient has been sleeping since 7:00 , was easily arousable took her medications and then went back to sleep. Patient reassessed later in the afternoon was awake, able to communicate with clear speech but remained confused. Review of Systems Unable to obtain due to mental condition Physical Exam 2 Vital Signs: Vital Signs: Last Vital Signs Temp 97.4 F 05/03/23 11:37 Pulse 94 05/03/23 11:37 Resp 18 05/03/23 11:37 BP 152/67 H 05/03/23 11:37 Pulse Ox 95 05/03/23 11:37 O2 Del Method Room Air 05/03/23 11:37 BMI result Body Mass Index 50.0 Const: Other: General resting comfortably in no acute distress. Neck no JVD. CVS regular rate rhythm, Respiratory lungs clear to auscultation, no respiratory distress, no wheeze, no rhonchi. Gastrointestinal abdomen soft, bowel sounds audible, no rigidity nontender Extremities no edema. Neuro moving all 4 extremity, his speech clear Skin no rash Psych poor insight Objective Data Active Medications Atorvastatin Calcium (Atorvastatin Calcium 20 Mg Tablet) 20 mg PO BEDTIME [facility] Last Admin: 05/02/23 21:02 Dose: 20 mg Documented By: LIVE Clonidine HCl (Clonidine Hcl 0.1 Mg Tablet) 0.1 mg PO BID [facility]; Protocol Last Admin: 05/03/23 09:20 Dose: 0.1 mg Documented By: ISAI Dextrose (Dextrose 50 % 25 Gm/50 Ml Syringe) 25 gm IVPUSH Q15M PRN; Protocol PRN Reason: per Hypoglycemia Standing Ord. Enoxaparin Sodium (Enoxaparin Sodium 40 Mg/0.4 Ml Syringe) 40 mg SUBCUT Q24H [facility] Last Admin: 04/28/23 10:09 Dose: Not Given Documented By: ELLIOT Non-Admin Reason: Patient Asleep Glucose (Glucose Gel 15 Gm Gel..Gram.) 15 gm PO Q15M PRN; Protocol PRN Reason: per Hypoglycemia Standing Ord. Hydralazine HCl (Hydralazine Hcl 20 Mg/Ml Vial) 5 mg IVPUSH Q4H PRN; Protocol PRN Reason: Hypertension Ceftriaxone Sodium 2 gm/ (Sodium Chloride) 50 mls @ 100 mls/hr IV Q12H [facility] Last Infusion: 05/03/23 02:49 Dose: Infused Documented By: LIVE Doxycycline Hyclate 100 mg/ (Sodium Chloride) 250 mls @ 166.67 mls/hr IV Q12H [facility] Last Infusion: 05/03/23 10:59 Dose: Infused Documented By: ISAI Acetaminophen (Ofirmev) 1,000 mg in 100 mls @ 400 mls/hr IV Q6H PRN PRN Reason: Fever Last Infusion: 05/02/23 21:10 Dose: Infused Documented By: LIVE Acyclovir Sodium 800 mg/ (Sodium Chloride) 266 mls @ 266 mls/hr IV Q8H [facility] Last Infusion: 05/03/23 09:05 Dose: Infused Documented By: ISAI Valproic Acid 125 mg/ Dextrose 51.25 mls @ 52.504 mls/hr IV Q8H [facility] Last Infusion: 05/03/23 09:05 Dose: Infused Documented By: ISAI Insulin Human Lispro (Insulin Lispro 100 Unit/Ml 3 Ml Vial) 0 unit SUBCUT Q6H [facility]; Protocol Last Admin: 05/03/23 05:35 Dose: 2 unit Documented By: LIVE Levothyroxine Sodium (Levothyroxine Sodium 125 Mcg Tablet) 125 mcg PO DAILY@0600 [facility] Last Admin: 05/03/23 09:20 Dose: 125 mcg Documented By: ISAI Lorazepam (Lorazepam 0.5 Mg Tablet) 0.5 mg PO BID PRN PRN Reason: anxiety/restlessness Last Admin: 05/03/23 02:43 Dose: 0.5 mg Documented By: LIVE Morphine Sulfate (Morphine Sulfate 2 Mg/Ml Cartridge) 2 mg IVPUSH Q4H PRN; Protocol PRN Reason: Pain, Severe (Pain Scale 7-10) Last Admin: 05/03/23 03:41 Dose: 2 mg Documented By: LIVE Non-Formulary Medication (Ubrogepant [Ubrelvy]) 100 mg PO DAILY MRX1 PRN PRN Reason: Migraine Headache Ondansetron HCl (Ondansetron Hcl 4 Mg/2 Ml Vial) 4 mg IVPUSH Q8H PRN PRN Reason: Nausea and Vomiting Last Admin: 04/29/23 22:37 Dose: 4 mg Documented By: LUCIE Quetiapine Fumarate (Quetiapine Fumarate 25 Mg Tablet) 25 mg PO TID [facility] Last Admin: 05/03/23 09:20 Dose: 25 mg Documented By: ISAI Sodium Chloride (0.9 % Sodium Chloride Flush 3 Ml Syringe) 3 ml IVFLUSH QSHIFT [facility] Last Admin: 05/03/23 09:20 Dose: 3 ml Documented By: ISAI Vitamin D (Cholecalciferol (Vitamin D3) 25 Mcg Tablet) 25 mcg PO DAILY [facility] Last Admin: 05/03/23 09:20 Dose: 25 mcg Documented By: ISAI Labs 05/04/23 06:55 05/04/23 06:55 Labs: Laboratory Results - last 24 hr 05/02/23 05/02/23 05/03/23 15:44 19:52 00:27 MCV MCH MCHC RDW Plt Count MPV Immature Gran % (Auto) Neut % (Auto) Lymph % (Auto) Owen % (Auto) Eos % (Auto) Baso % (Auto) Lymph # (Auto) Owen # (Auto) Eos # (Auto) Baso # (Auto) Abs Immat Gran (auto) Absolute Neuts (auto) Absolute Nucleated RBC Nucleated RBC % (auto) Anion Gap 11 L Estim Creat Clear Calc 76.7 Estimated GFR > 60 POC Glucose 158 H 174 H Random Glucose 180 H Calcium 8.5 Total Bilirubin AST ALT Alkaline Phosphatase Total Creatine Kinase 367 H Total Protein Albumin 05/03/23 05/03/23 05/03/23 05:20 06:55 11:35 MCV 89.1 MCH 30.0 MCHC 33.7 RDW 13.4 Plt Count 237 MPV 11.0 Immature Gran % (Auto) 0.9 H Neut % (Auto) 67.6 Lymph % (Auto) 18.5 L Owen % (Auto) 10.0 Eos % (Auto) 2.8 Baso % (Auto) 0.2 Lymph # (Auto) 2.4 Owen # (Auto) 1.3 H Eos # (Auto) 0.4 Baso # (Auto) 0.0 Abs Immat Gran (auto) 0.11 H Absolute Neuts (auto) 8.7 H Absolute Nucleated RBC 0.000 Nucleated RBC % (auto) 0.0 Anion Gap 18 Estim Creat Clear Calc 78.5 Estimated GFR > 60 POC Glucose 180 H 210 H Random Glucose 210 H Calcium 8.3 L Total Bilirubin 1.0 AST 36 H ALT 34 H Alkaline Phosphatase 93 Total Creatine Kinase Total Protein 6.1 L Albumin 3.3 L Assessment and Plan (1) Acute febrile illness: Status: Acute (2) Encephalopathy acute: Status: Acute (3) Anxiety: Status: Acute (4) Migraine: Status: Acute Plan 72-year-old female with pertinent history of complex migraine, insulin-dependent diabetes mellitus, mood disorder, hypothyroidism, mixed hyperlipidemia who presented with headaches, altered mentation and fever, concern for encephalitis vs meningitis. Acute encephalopathy, headache with fever, attributed complex migraine vs encephalitis. Fever resolved, patient resting comfortably woke up to take medications and then fall back to sleep, patient remained awake all night Neurology recommended Acyclovir and LP, however and HCP has declined LP. Blood culture negative > 48 hours , urine culture negative tick borne panel negative except for Babesia that is still pending. WBC 12.9 has come down from 17.3 Continue Ceftriaxone, Doxy and Acyclovir TSH, B12, Folate and Ammonia negative Evaluated by psych and receiving Seroquel 25 mg t.i.d., valproic acid 125 mg Q 8 hours, clonidine 0.1 mg b.i.d. Due to daytime somnolence will change dose of Seroquel to 25 b.i.d., valproic acid to 250 at bedtime follow clinical course, continue sitter Patient has had multiple similar episodes in the past requiring hospitalization and, [facility] as well as [facility] with negative LP. Hypothyroidism: continue Levothyroxine Insulin-dependent diabetes mellitus with hyperglycemia. Continue SSI, and hold Lantus, due to decreased by mouth intake blood sugars in 200 Morbdi obesity--will recommend weight loss and low-calorie diet HTN--BP fluctuating, continue Clonidine and PRN iv hydralazine if BP noted to be elevated Neuropathy--hold neurontin as speech recommend crushing pills. Hypokalemia-repleted and normalized DVT prophylaxis: Lovenox Full code Need for inpatient: Acute encephalopathy with ongoing workup and testing and not near baseline for dc Quality Stroke Does the patient have a stroke diagnosis?: No VTE Prior VTE?: No VTE Risk Level:: Medical - moderate - high VTE Device Contraindication: Treatment Not Indicated VTE Drug Contraindication: N/A - Med Ordered
[2023-05-03 15:40] LABS: Glucose, Whole Blood 212 mg/dL (60-115)
[2023-05-03] MEDS: Acetaminophen 1,000 MG/100 ML PIGGYBACK 400 MG IV (16:11)
[2023-05-03] MEDS: Atorvastatin Calcium 20 MG TABLET PO (22:04)
[2023-05-03] MEDS: Valproic Acid (as Sodium Salt) 250 MG in Dextrose 5 % 50 ML 52.5 MG IV (22:20)
[2023-05-04] VITALS (8 sets, daily range): BP systolic 138–162; BP diastolic 47–77; PULSE 81–88; RESP 18–20; TEMP 36.1–37.1; O2SAT 81–98
[2023-05-04 00:23] LABS: Glucose, Whole Blood 300 mg/dL (60-115)
[2023-05-04] MEDS: Insulin Lispro 100 UNIT/ML 3 ML VIAL SUBCUT ×4 (00:27→17:35)
[2023-05-04] MEDS: cefTRIAXone sodium 2 GM in 0.9 % Sodium Chloride 50 ML IV ×2 (01:05→15:34)
[2023-05-04] MEDS: Levothyroxine Sodium 125 MCG TABLET PO (05:32)
[2023-05-04 06:01] LABS: Glucose, Whole Blood 281 mg/dL (60-115)
[2023-05-04 07:15] LABS: MANUAL DIFF FLAG NO
[2023-05-04 07:18] LABS: Basophils Percent Auto 0.3 % (0-2); Eosinophils Absolute Auto 0.5 X10*3/uL (0.0-0.4); Eosinophils Percent Auto 4.9 % (0-4); Hematocrit 31.6 % (37.0-47.0); Hemoglobin 10.5 g/dl (12.0-16.0); Imm Gran Abs Auto 0.11 X10*3/uL (0.00-0.03); Lymphocytes Absolute Auto 1.9 X10*3/uL (1.2-4.9); Mean Corpuscular HGB Conc 33.2 g/dl (31.0-35.0); Mean Corpuscular Hemoglobin 29.9 pg (27.0-33.0); Mean Platelet Volume 11.2 fL (9.4-12.3); Monocytes Percent Auto 9.2 % (2-11); Neutrophils Absolute Auto 7.4 x10*3/uL (2.0-8.3); Neutrophils Percent Auto 67.6 % (45-73); Platelet Count 252 X10*3/uL (160-400); Red Blood Count 3.51 X10*6/uL (4.20-5.50); Red Cell Distribution Width 13.6 % (11.0-16.0); White Blood Count 10.9 X10*3/uL (4.8-10.8)
[2023-05-04 07:42] LABS: Anion Gap 11 (12-20); Blood Urea Nitrogen 11 mg/dL (9-16); Calcium 8.3 mg/dL (8.4-10.2); Carbon Dioxide 24 mmol/L (22-29); Chloride 110 mmol/L (96-108); Creatinine Clr Calc Pharmacy 80.3; Estimated Glomerular Filt Rate > 60; Glucose Random 304 mg/dL (60-115); Potassium 3.3 mmol/L (3.3-5.1); Sodium 142 mmol/L (135-145)
[2023-05-04] MEDS: Doxycycline Hyclate 100 MG in 0.9 % Sodium Chloride 250 ML 166.67 MG IV ×2 (08:25→22:11)
[2023-05-04] MEDS: QUEtiapine Fumarate 25 MG TABLET PO ×2 (08:26→22:23)
[2023-05-04] MEDS: 0.9 % Sodium Chloride Flush 3 ML SYRINGE IVFLUSH ×3 (08:26→22:25)
[2023-05-04] MEDS: Cholecalciferol (Vitamin D3) 25 MCG TABLET PO (08:26)
[2023-05-04] MEDS: cloNIDine HCL 0.1 MG TABLET PO ×2 (08:26→22:23)
[2023-05-04] MEDS: Acetaminophen 1,000 MG/100 ML PIGGYBACK 400 MG IV ×2 (08:32→17:35)
[2023-05-04 11:41] LABS: Glucose, Whole Blood 318 mg/dL (60-115)
--- NOTE | 2023-05-04 11:45 | MHC.CM.PN ---
EMR REVIEWED, CM CONTACTED PT'S /HCP AT NUMBER ON HCP [phone], BETO REPORTS THIS IS HIS CELL PHONE AND THE NUMBER ON FILE IS THE HOME PHONE, BETO DOES VERIFY PT WALKS W/CANE AT BASELINE AND ONCE IN A WHILE WOULD USE HER WALKER HOWEVER TYPICALLY DOES NOT NEED IT. BETO AGREEABLE TO STR OR HOME W/SERVICES PER P.T. RECOMMENDATIONS AND HAS NO SPECIFIC PREFERENCES AND IS AGREEABLE TO A BROAD LOCAL STR SEARCH AND CM WILL REVIEW OFFERS. TASK SENT TO REGISTRATION AND CM WILL CONT TO FOLLOW DC NEEDS.
--- NOTE | 2023-05-04 13:23 | MHC.CM.PN ---
P.T. RECOMMENDING STR, BROAD LOCAL REFERRAL TO BE PLACED.
--- NOTE | 2023-05-04 13:34 | MHC.SL.DTX ---
Dysphagia Diet modifications: Last documented Solid diet consistencies: Regular Last documented Liquid consistency: Last documented Medication Administration: Changes made to current diet?: No Liquid Consistency and Strategies: Liquid Intake Recommendation: Thin Compensatory Strategies for Safe Swallow: Unrestricted Compensatory Strategies for Safe Swallow(b): Sitting Upright (90 deg) Liquids from Straw Solid Food Consistency: Dietary Recommendations: Regular Additional Modifications to Solids: Oral Medication Intake: Whole with Liquid Strategies and Precautions to be Taken for Safe Swallow: Sitting Upright (90 deg) Liquids from Straw Supervision While Eating and/Drinking: None Needed Foods to Avoid: N/a Swallowing Recommended Treatments: Compens. Strategy Educat. Level of Impact on: Daily activities: None Interpersonal interactions: Education: None Employment: None Community: None Prognosis for Improvement: Good Recommendation for Speech: Inpatient Speech Therapy Comment: Pt requires total 1:1 assistance feeding and is recommended strict aspiration precautions given her change in mentation Frequency/Duration: Date Range for Service Req: Timeline to reassess: Additional Comments: Treatment: Pt had trouble sleeping last night and was resting all morning. She is awake in the afternoon in her recliner chair. She has no complaints about her current diet options, but reports that she has been only eating little. She requests streamOnce Zero, her caregiver his informed they can get some at [facility] and leave it in her room. She tolerates Thin Liquids self-administered via Cup with no overt s/s of aspiration. She tolerates Regular Solid (dry dixon cracker) with functional oral preparation and clearance with no overt s/s immediately after the swallow, or after sips of thin liquids. Assessment: Continue to recommend Regular Solids and Thin Liquids. Medications Whole with Puree or Thin Liquids, as preferred. No further MOTORCYCLE SAL[employer] ASSOCIATE intervention required at this time. Music Writer Clinican/Clinical Fellow: No Supervisory Statement: I have reviewed and agree with the student/clinical fellow's documentation: N/A Speech Language Pathologist: Moise Waggoner M.A., CCC-MOTORCYCLE SALES ASSOCIATE
--- NOTE | 2023-05-04 13:45 | P.PNIM_ITS ---
Subjective Subjective Date of Service: 05/05/23 Interval History: Being followed for confusion and fever. Patient awake alert, answering questions appropriately tolerating diet, very emotional, no acute events overnight, no nausea, no vomiting, no abdominal pain seen by speech therapy they recommend to continue regular diet with thin liquids. Review of Systems All other system reviewed and negative. Physical Exam 2 Vital Signs: Vital Signs: Last Vital Signs Temp 98.0 F 05/04/23 11:24 Pulse 87 05/04/23 13:26 Resp 20 05/04/23 11:24 BP 150/47 H 05/04/23 13:26 Pulse Ox 94 05/04/23 13:26 O2 Del Method Room Air 05/04/23 11:24 BMI result Body Mass Index 50.0 Const: Other: General awake alert to place and person, resting comfortably in no acute distress. Neck no JVD. CVS regular rate rhythm, Respiratory lungs clear to auscultation, no respiratory distress, no wheeze, no rhonchi. Gastrointestinal abdomen soft, bowel sounds audible, no rigidity nontender Extremities no edema. Neuro moving all 4 extremity, speech clear Skin no rash Psych appropriate affect Objective Data Active Medications Atorvastatin Calcium (Atorvastatin Calcium 20 Mg Tablet) 20 mg PO BEDTIME [facility] Last Admin: 05/03/23 22:04 Dose: 20 mg Documented By: MEHRDAD Clonidine HCl (Clonidine Hcl 0.1 Mg Tablet) 0.1 mg PO BID [facility]; Protocol Last Admin: 05/04/23 08:26 Dose: 0.1 mg Documented By: JANELLE Dextrose (Dextrose 50 % 25 Gm/50 Ml Syringe) 25 gm IVPUSH Q15M PRN; Protocol PRN Reason: per Hypoglycemia Standing Ord. Enoxaparin Sodium (Enoxaparin Sodium 40 Mg/0.4 Ml Syringe) 40 mg SUBCUT Q24H [facility] Last Admin: 04/28/23 10:09 Dose: Not Given Documented By: ELLIOT Non-Admin Reason: Patient Asleep Gabapentin (Gabapentin 300 Mg Capsule) 300 mg PO TID [facility] Glucose (Glucose Gel 15 Gm Gel..Gram.) 15 gm PO Q15M PRN; Protocol PRN Reason: per Hypoglycemia Standing Ord. Hydralazine HCl (Hydralazine Hcl 20 Mg/Ml Vial) 5 mg IVPUSH Q4H PRN; Protocol PRN Reason: Hypertension Ceftriaxone Sodium 2 gm/ (Sodium Chloride) 50 mls @ 100 mls/hr IV Q12H [facility] Last Infusion: 05/04/23 01:50 Dose: Infused Documented By: MEHRDAD Doxycycline Hyclate 100 mg/ (Sodium Chloride) 250 mls @ 166.67 mls/hr IV Q12H [facility] Last Infusion: 05/04/23 10:10 Dose: Infused Documented By: JANELLE Acetaminophen (Ofirmev) 1,000 mg in 100 mls @ 400 mls/hr IV Q6H PRN PRN Reason: Fever Last Infusion: 05/04/23 08:47 Dose: Infused Documented By: JANELLE Acyclovir Sodium 800 mg/ (Sodium Chloride) 266 mls @ 266 mls/hr IV Q8H [facility] Last Admin: 05/04/23 12:50 Dose: 266 mls/hr Documented By: JANELLE Insulin Glargine (Insulin Glargine,Hum.Rec.Anlog 100 Unit/Ml 10 Ml Vial) 20 unit SUBCUT BEDTIME [facility] Insulin Human Lispro (Insulin Lispro 100 Unit/Ml 3 Ml Vial) 0 unit SUBCUT Q6H [facility]; Protocol Last Admin: 05/04/23 12:50 Dose: 8 unit Documented By: JANELLE Levothyroxine Sodium (Levothyroxine Sodium 125 Mcg Tablet) 125 mcg PO DAILY@0600 [facility] Last Admin: 05/04/23 05:32 Dose: 125 mcg Documented By: MEHRDAD Lorazepam (Lorazepam 0.5 Mg Tablet) 0.5 mg PO BID PRN PRN Reason: anxiety/restlessness Last Admin: 05/03/23 02:43 Dose: 0.5 mg Documented By: LIVE Morphine Sulfate (Morphine Sulfate 2 Mg/Ml Cartridge) 2 mg IVPUSH Q4H PRN; Protocol PRN Reason: Pain, Severe (Pain Scale 7-10) Last Admin: 05/03/23 03:41 Dose: 2 mg Documented By: LIVE Non-Formulary Medication (Ubrogepant [Ubrelvy]) 100 mg PO DAILY MRX1 PRN PRN Reason: Migraine Headache Ondansetron HCl (Ondansetron Hcl 4 Mg/2 Ml Vial) 4 mg IVPUSH Q8H PRN PRN Reason: Nausea and Vomiting Last Admin: 04/29/23 22:37 Dose: 4 mg Documented By: LUCIE Quetiapine Fumarate (Quetiapine Fumarate 25 Mg Tablet) 25 mg PO BEDTIME [facility] Sodium Chloride (0.9 % Sodium Chloride Flush 3 Ml Syringe) 3 ml IVFLUSH QSHIFT [facility] Last Admin: 05/04/23 08:26 Dose: 3 ml Documented By: JANELLE Vitamin D (Cholecalciferol (Vitamin D3) 25 Mcg Tablet) 25 mcg PO DAILY [facility] Last Admin: 05/04/23 08:26 Dose: 25 mcg Documented By: JANELLE Labs 05/05/23 08:49 05/05/23 08:49 Labs: Laboratory Results - last 24 hr 05/03/23 05/04/23 05/04/23 15:22 00:15 05:56 MCV MCH MCHC RDW Plt Count MPV Immature Gran % (Auto) Neut % (Auto) Lymph % (Auto) [place] % (Auto) Eos % (Auto) Baso % (Auto) Lymph # (Auto) [place] # (Auto) Eos # (Auto) Baso # (Auto) Abs Immat Gran (auto) Absolute Neuts (auto) Absolute Nucleated RBC Nucleated RBC % (auto) Anion Gap Estim Creat Clear Calc Estimated GFR POC Glucose 212 H 300 H 281 H Random Glucose Calcium 05/04/23 05/04/23 06:55 11:26 MCV 90.0 MCH 29.9 MCHC 33.2 RDW 13.6 Plt Count 252 MPV 11.2 Immature Gran % (Auto) 1.0 H Neut % (Auto) 67.6 Lymph % (Auto) 17.0 L [place] % (Auto) 9.2 Eos % (Auto) 4.9 H Baso % (Auto) 0.3 Lymph # (Auto) 1.9 [place] # (Auto) 1.0 Eos # (Auto) 0.5 H Baso # (Auto) 0.0 Abs Immat Gran (auto) 0.11 H Absolute Neuts (auto) 7.4 Absolute Nucleated RBC 0.000 Nucleated RBC % (auto) 0.0 Anion Gap 11 L Estim Creat Clear Calc 80.3 Estimated GFR > 60 POC Glucose 318 H Random Glucose 304 H Calcium 8.3 L Microbiology Microbiology Results: Microbiology 04/28/23 21:43 Blood Culture - Final Blood - Venous No growth after 5 days. 04/28/23 21:43 Blood Culture - Final Blood - Venous No growth after 5 days. Assessment and Plan (1) Acute febrile illness: Status: Acute (2) Encephalopathy acute: Status: Acute (3) Anxiety: Status: Acute (4) Migraine: Status: Acute Plan 72-year-old female with pertinent history of complex migraine, insulin-dependent diabetes mellitus, mood disorder, hypothyroidism, mixed hyperlipidemia who presented with headaches, altered mentation and fever, concern for encephalitis vs meningitis. Acute encephalopathy, headache with fever, attributed complex migraine vs encephalitis. 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 Blood culture negative > 48 hours , urine culture negative tick borne panel negative except for Babesia that is still pending. WBC close to normal on iv Ceftriaxone, Doxy and Acyclovir d6 will discuss with ID regarding antibiotic choice and duration TSH, B12, Folate and Ammonia negative Evaluated by psych they recommended Seroquel 25 mg t.i.d. and valproic acid Due to daytime somnolence have changed Seroquel to bedtime and valproic acid dcd Hypothyroidism: continue Levothyroxine Insulin-dependent diabetes mellitus with hyperglycemia. Continue SSI, and resume Lasix since tolerating diet change diet to diabetic regular Morbdi obesity--will recommend weight loss and low-calorie diet HTN--BP fluctuating, will resume home medications Neuropathy--resume neurontin as able to take pills Hypokalemia-repleted and normalized DVT prophylaxis: Lovenox Full code Need for inpatient: Acute encephalopathy on IV antibiotics awaiting expert consultation and PT Called to update on patient's clinical condition and left message. Quality Stroke Does the patient have a stroke diagnosis?: No VTE Prior VTE?: No VTE Risk Level:: Medical - moderate - high VTE Device Contraindication: Treatment Not Indicated VTE Drug Contraindication: N/A - Med Ordered
[2023-05-04] MEDS: Gabapentin 300 MG CAPSULE PO ×2 (15:34→22:23)
[2023-05-04 17:45] LABS: Glucose, Whole Blood 321 mg/dL (60-115)
[2023-05-04 20:42] LABS: Glucose, Whole Blood 318 mg/dL (60-115)
[2023-05-04] MEDS: Atorvastatin Calcium 20 MG TABLET PO (22:23)
[2023-05-04] MEDS: Insulin Glargine,Hum.rec.anlog 100 UNIT/ML 10 ML VIAL 20 UNIT SUBCUT (22:24)
[2023-05-05] VITALS (8 sets, daily range): BP systolic 150–185; BP diastolic 59–81; PULSE 78–89; RESP 18–22; TEMP 36.1–37.3; O2SAT 93–96
[2023-05-05 00:22] LABS: Glucose, Whole Blood 277 mg/dL (60-115)
[2023-05-05] MEDS: cefTRIAXone sodium 2 GM in 0.9 % Sodium Chloride 50 ML IV ×2 (01:22→15:01)
[2023-05-05] MEDS: Insulin Lispro 100 UNIT/ML 3 ML VIAL SUBCUT ×4 (01:23→17:22)
[2023-05-05 05:43] LABS: Glucose, Whole Blood 286 mg/dL (60-115)
[2023-05-05] MEDS: Levothyroxine Sodium 125 MCG TABLET PO (06:05)
[2023-05-05] MEDS: Doxycycline Hyclate 100 MG in 0.9 % Sodium Chloride 250 ML 166.67 MG IV ×2 (08:07→22:38)
[2023-05-05] MEDS: Gabapentin 300 MG CAPSULE PO ×3 (08:07→20:15)
[2023-05-05] MEDS: cloNIDine HCL 0.1 MG TABLET PO ×3 (08:07→20:16)
[2023-05-05] MEDS: Cholecalciferol (Vitamin D3) 25 MCG TABLET PO (08:07)
[2023-05-05] MEDS: 0.9 % Sodium Chloride Flush 3 ML SYRINGE IVFLUSH ×2 (08:08→22:38)
[2023-05-05 09:24] LABS: MANUAL DIFF FLAG NO
[2023-05-05 09:35] LABS: Basophils Percent Auto 0.3 % (0-2); Eosinophils Absolute Auto 0.5 X10*3/uL (0.0-0.4); Eosinophils Percent Auto 5.1 % (0-4); Hematocrit 34.8 % (37.0-47.0); Hemoglobin 11.5 g/dl (12.0-16.0); Imm Gran Abs Auto 0.14 X10*3/uL (0.00-0.03); Imm Gran Pct Auto 1.3 % (0.0-0.4); Lymphocytes Absolute Auto 2.6 X10*3/uL (1.2-4.9); Lymphocytes Percent Auto 24.1 % (20-40); Mean Corpuscular Hemoglobin 30.2 pg (27.0-33.0); Mean Corpuscular Volume 91.3 fL (80.0-98.0); Monocytes Percent Auto 9.7 % (2-11); Neutrophils Absolute Auto 6.4 x10*3/uL (2.0-8.3); Neutrophils Percent Auto 59.5 % (45-73); Platelet Count 299 X10*3/uL (160-400); Red Blood Count 3.81 X10*6/uL (4.20-5.50); Red Cell Distribution Width 13.8 % (11.0-16.0); White Blood Count 10.7 X10*3/uL (4.8-10.8)
[2023-05-05 09:54] LABS: Anion Gap 13 (12-20); Blood Urea Nitrogen 10 mg/dL (9-16); Carbon Dioxide 25 mmol/L (22-29); Chloride 107 mmol/L (96-108); Creatinine Clr Calc Pharmacy 79.4; Estimated Glomerular Filt Rate > 60; Glucose Random 311 mg/dL (60-115); Potassium 3.5 mmol/L (3.3-5.1); Sodium 141 mmol/L (135-145)
[2023-05-05] MEDS: Insulin Glargine,Hum.rec.anlog 100 UNIT/ML 10 ML VIAL 20 UNIT SUBCUT (10:01)
[2023-05-05] MEDS: LORazepam 0.5 MG TABLET PO (12:04)
[2023-05-05 12:24] LABS: Glucose, Whole Blood 317 mg/dL (60-115)
--- NOTE | 2023-05-05 16:16 | P.PNIM_ITS ---
Subjective Subjective Date of Service: 05/05/23 Interval History: Patient sitting on chair awake alert x3, offers no acute complaints is willing to go to rehab as per PT recommendation, denies headache, no dizziness, no nausea, no vomiting, no abdominal pain, no acute events overnight. Review of Systems All other system reviewed and negative Physical Exam 2 Vital Signs: Vital Signs: Last Vital Signs Temp 96.9 F 05/05/23 15:42 Pulse 87 05/05/23 15:42 Resp 20 05/05/23 15:42 BP 150/65 H 05/05/23 15:42 Pulse Ox 93 05/05/23 15:42 O2 Del Method Room Air 05/05/23 15:42 BMI result Body Mass Index 50.0 Const: Other: General awake alert x3,sitting comfortably in no acute distress. Neck no JVD. CVS regular rate rhythm, Respiratory lungs clear to auscultation, no respiratory distress, no wheeze, no rhonchi. Gastrointestinal abdomen soft,obese, bowel sounds audible, no rigidity non tender Extremities no edema. Neuro moving all 4 extremity, speech clear Skin no rash Psych appropriate affect Objective Data Active Medications Atorvastatin Calcium (Atorvastatin Calcium 20 Mg Tablet) 20 mg PO BEDTIME [facility] Last Admin: 05/04/23 22:23 Dose: 20 mg Documented By: MEHRDAD Clonidine HCl (Clonidine Hcl 0.1 Mg Tablet) 0.1 mg PO TID [facility]; Protocol Last Admin: 05/05/23 15:02 Dose: 0.1 mg Documented By: JANELLE Dextrose (Dextrose 50 % 25 Gm/50 Ml Syringe) 25 gm IVPUSH Q15M PRN; Protocol PRN Reason: per Hypoglycemia Standing Ord. Enoxaparin Sodium (Enoxaparin Sodium 40 Mg/0.4 Ml Syringe) 40 mg SUBCUT Q24H [facility] Last Admin: 04/28/23 10:09 Dose: Not Given Documented By: ELLIOT Non-Admin Reason: Patient Asleep Gabapentin (Gabapentin 300 Mg Capsule) 300 mg PO TID [facility] Last Admin: 05/05/23 15:02 Dose: 300 mg Documented By: JANELLE Glucose (Glucose Gel 15 Gm Gel..Gram.) 15 gm PO Q15M PRN; Protocol PRN Reason: per Hypoglycemia Standing Ord. Hydralazine HCl (Hydralazine Hcl 20 Mg/Ml Vial) 5 mg IVPUSH Q4H PRN; Protocol PRN Reason: Hypertension Ceftriaxone Sodium 2 gm/ (Sodium Chloride) 50 mls @ 100 mls/hr IV Q12H [facility] Last Infusion: 05/05/23 15:35 Dose: Infused Documented By: JANELLE Doxycycline Hyclate 100 mg/ (Sodium Chloride) 250 mls @ 166.67 mls/hr IV Q12H [facility] Last Infusion: 05/05/23 09:38 Dose: Infused Documented By: JANELLE Acetaminophen (Ofirmev) 1,000 mg in 100 mls @ 400 mls/hr IV Q6H PRN PRN Reason: Fever Last Infusion: 05/04/23 17:54 Dose: Infused Documented By: JANELLE Acyclovir Sodium 800 mg/ (Sodium Chloride) 266 mls @ 266 mls/hr IV Q8H [facility] Last Infusion: 05/05/23 16:02 Dose: Infused Documented By: JANELLE Insulin Glargine (Insulin Glargine,Hum.Rec.Anlog 100 Unit/Ml 10 Ml Vial) 20 unit SUBCUT BID [facility] Last Admin: 05/05/23 10:01 Dose: 20 unit Documented By: JANELLE Insulin Human Lispro (Insulin Lispro 100 Unit/Ml 3 Ml Vial) 0 unit SUBCUT Q6H [facility]; Protocol Last Admin: 05/05/23 12:08 Dose: 8 unit Documented By: JANELLE Levothyroxine Sodium (Levothyroxine Sodium 125 Mcg Tablet) 125 mcg PO DAILY@0600 [facility] Last Admin: 05/05/23 06:05 Dose: 125 mcg Documented By: MEHRDAD Lorazepam (Lorazepam 0.5 Mg Tablet) 0.5 mg PO BID PRN PRN Reason: anxiety/restlessness Last Admin: 05/05/23 12:04 Dose: 0.5 mg Documented By: JANELLE Ondansetron HCl (Ondansetron Hcl 4 Mg/2 Ml Vial) 4 mg IVPUSH Q8H PRN PRN Reason: Nausea and Vomiting Last Admin: 04/29/23 22:37 Dose: 4 mg Documented By: LUCIE Quetiapine Fumarate (Quetiapine Fumarate 25 Mg Tablet) 12.5 mg PO BEDTIME [facility] Sodium Chloride (0.9 % Sodium Chloride Flush 3 Ml Syringe) 3 ml IVFLUSH QSHIFT [facility] Last Admin: 05/05/23 15:10 Dose: Not Given Documented By: JANELLE Non-Admin Reason: IV Running Vitamin D (Cholecalciferol (Vitamin D3) 25 Mcg Tablet) 25 mcg PO DAILY [facility] Last Admin: 05/05/23 08:07 Dose: 25 mcg Documented By: JANELLE Labs 05/05/23 08:49 05/05/23 08:49 Labs: Laboratory Results - last 24 hr 05/04/23 05/04/23 05/05/23 17:34 20:38 00:12 MCV MCH MCHC RDW Plt Count MPV Immature Gran % (Auto) Neut % (Auto) Lymph % (Auto) [place] % (Auto) Eos % (Auto) Baso % (Auto) Lymph # (Auto) [place] # (Auto) Eos # (Auto) Baso # (Auto) Abs Immat Gran (auto) Absolute Neuts (auto) Absolute Nucleated RBC Nucleated RBC % (auto) Anion Gap Estim Creat Clear Calc Estimated GFR POC Glucose 321 H 318 H 277 H Random Glucose Calcium 05/05/23 05/05/23 05/05/23 05:39 08:49 12:07 MCV 91.3 MCH 30.2 MCHC 33.0 RDW 13.8 Plt Count 299 MPV 12.0 Immature Gran % (Auto) 1.3 H Neut % (Auto) 59.5 Lymph % (Auto) 24.1 [place] % (Auto) 9.7 Eos % (Auto) 5.1 H Baso % (Auto) 0.3 Lymph # (Auto) 2.6 [place] # (Auto) 1.0 Eos # (Auto) 0.5 H Baso # (Auto) 0.0 Abs Immat Gran (auto) 0.14 H Absolute Neuts (auto) 6.4 Absolute Nucleated RBC 0.000 Nucleated RBC % (auto) 0.0 Anion Gap 13 Estim Creat Clear Calc 79.4 Estimated GFR > 60 POC Glucose 286 H 317 H Random Glucose 311 H Calcium 9.0 D Assessment and Plan (1) Acute febrile illness: Status: Acute (2) Encephalopathy acute: Status: Acute (3) Anxiety: Status: Acute (4) Migraine: Status: Acute Plan 72-year-old female with pertinent history of complex migraine, insulin-dependent diabetes mellitus, mood disorder, hypothyroidism, mixed hyperlipidemia who presented with headaches, altered mentation and fever, concern for encephalitis vs meningitis. Acute encephalopathy, headache with fever, attributed complex migraine vs encephalitis. 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 Blood culture negative > 48 hours , urine culture negative tick borne panel negative except for Babesia that is still pending. WBC close to normal Will DC IV ceftriaxone and IV acyclovir day 7, will treat with total 10 days of doxycycline. TSH, B12, Folate and Ammonia negative Evaluated by psych they recommended Seroquel 25 mg t.i.d. and valproic acid Due to daytime somnolence have changed Seroquel to bedtime and valproic acid dcd Hypothyroidism: continue Levothyroxine Insulin-dependent diabetes mellitus with hyperglycemia. Will increase dose of Lantus to 30 b.i.d. home dose 52 units b.i.d., Continue SSI, and diabetic diet Morbdi obesity--will recommend weight loss and low-calorie diet HTN--BP fluctuating, will resume home medications Neuropathy--resume neurontin as able to take pills Hypokalemia-repleted and normalized DVT prophylaxis: Lovenox Full code Need for inpatient: Acute encephalopathy on IV antibiotics /seen by PT they recommend short-term rehab lead case manager arranging for safe disposition. Quality Stroke Does the patient have a stroke diagnosis?: No VTE Prior VTE?: No VTE Risk Level:: Medical - moderate - high VTE Device Contraindication: Treatment Not Indicated VTE Drug Contraindication: N/A - Med Ordered
[2023-05-05 16:28] LABS: Glucose, Whole Blood 336 mg/dL (60-115)
[2023-05-05] MEDS: Atorvastatin Calcium 20 MG TABLET PO (20:15)
[2023-05-05] MEDS: QUEtiapine Fumarate 25 MG TABLET 12.5 MG PO (20:17)
[2023-05-05 20:44] LABS: Glucose, Whole Blood 365 mg/dL (60-115)
[2023-05-05] MEDS: Insulin Glargine,Hum.rec.anlog 100 UNIT/ML 10 ML VIAL 30 UNIT SUBCUT (22:37)
[2023-05-06 00:11] LABS: Glucose, Whole Blood 298 mg/dL (60-115)
[2023-05-06] MEDS: Insulin Lispro 100 UNIT/ML 3 ML VIAL SUBCUT ×3 (00:53→12:10)
[2023-05-06 03:18] VITALS: BP 150/68; PULSE 85; RESP 18; TEMP 36.7; O2SAT 93
[2023-05-06 05:55] LABS: Glucose, Whole Blood 245 mg/dL (60-115)
[2023-05-06] MEDS: Levothyroxine Sodium 125 MCG TABLET PO (06:17)
[2023-05-06 08:00] VITALS: BP 147/67; PULSE 93; RESP 20; TEMP 36.4; O2SAT 92
[2023-05-06] MEDS: cloNIDine HCL 0.1 MG TABLET PO (08:26)
[2023-05-06] MEDS: Cholecalciferol (Vitamin D3) 25 MCG TABLET PO (08:26)
[2023-05-06] MEDS: Gabapentin 300 MG CAPSULE PO (08:26)
[2023-05-06] MEDS: 0.9 % Sodium Chloride Flush 3 ML SYRINGE IVFLUSH (08:27)
[2023-05-06] MEDS: Insulin Glargine,Hum.rec.anlog 100 UNIT/ML 10 ML VIAL 30 UNIT SUBCUT (08:27)
[2023-05-06] MEDS: Doxycycline Hyclate 100 MG in 0.9 % Sodium Chloride 250 ML 166.67 MG IV (08:32)
--- NOTE | 2023-05-06 08:34 | MHC.CM.PN ---
Addendum entered by Kizzy Liu RN 05/06/23 13:30: IMM 05/06/23 DELIVERED TO BEDSIDE, SNF RECEIVED AUTH FROM [facility], CM CONTACTED [facility] FOR TRANSPORT HOWEVER [facility] REPORTING THEY ARE UNABLE TO TRANSPORT D/T INSURANCE HOWEVER CM HOSPITALITY SERVICES MANAGER CONTACTED [facility] AND WAS PROVIDED W/RUN NUMBER [id number], PT BOOKED W/SHEEBA FOR 3PM. Original Note: CM RECEIVED MESSAGE FROM [facility] THAT AUTH IS STILL PENDING, UPDATED NOTE AND HCP SENT VIA [facility], [facility] PT WILL DC ONCE AUTH OBTAINED W/SHEEBA FOR TRANSPORT
[2023-05-06 09:09] VITALS: BP 147/67; PULSE 93; O2SAT 92
--- NOTE | 2023-05-06 11:09 | PC.NURSE ---
pt is alert and oriented to self and place, can be forgetful/confused at times with situation, month or date. pt is calm and cooperative. no complain of pain or discomfort at this time.
[2023-05-06 11:34] VITALS: BP 136/66; PULSE 83; RESP 18; TEMP 36.2; O2SAT 93
[2023-05-06 11:49] LABS: Glucose, Whole Blood 386 mg/dL (60-115)
--- NOTE | 2023-05-06 13:11 | PM.DS ---
DS: Providers Provider Date of Service: 05/06/23 Date of admission: 04/28/23 09:00 Primary care physician: Bhakti Rodgers MD Consults: 04/28/23 05:35 Consult to Neurology Routine Consulting Provider: [facility] Reason for consultation: complex migraine 04/28/23 09:08 Consult to Infectious Diseases Stat Consulting [place] [facility] [place] Reason for consultation: FUO Has provider been notified: Yes 05/01/23 09:51 Consult to Psychiatry Routine Consulting Provider: Psych [facility] Reason for consultation: med management for delirium Has provider been notified: No DS: Diagnosis Discharge Diagnosis (1) Acute febrile illness: Status: Acute (2) Encephalopathy acute: Status: Acute (3) Anxiety: Status: Acute (4) Migraine: Status: Acute DS: Summary Hospital Course Hospital Course: History of presenting illness. Date of Service: 04/28/23 Chief Complaint: Altered mentation This is a 72-year-old female with pertinent history of complex migraine, insulin-dependent diabetes mellitus, mood disorder, hypothyroidism, mixed hyperlipidemia who was brought to the emergency department for evaluation of headaches and altered mentation. 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 Unable to obtain any history of the time of my evaluation. Patient is only eye opening to painful stimulus. Unable to have a conversation. Patient presented earlier for headache with aura and blurred vision. She subsequently developed a fever and altered mentation. No family at bedside. Unable to obtain review of systems. Hospital course: 72-year-old female with pertinent history of complex migraine, insulin-dependent diabetes mellitus, mood disorder, hypothyroidism, mixed hyperlipidemia who presented with headaches, altered mentation and fever, patient admitted to medical floor, patient with history of multiple similar admissions at [facility] as well as [facility] and [facility] that has been attributed to malignant catatonia or complex migraine syndrome prior LPs have not shown any organisms, patient was seen by Neurology and they recommended acyclovir and LP ,however /healthcare proxy declined lumbar puncture, patient workup was unrevealing with blood cultures x2 negative, urine culture negative, tick-borne panel negative except for babesia ab pending, she had normal TSH, B12, folate and ammonia level, patient was empirically treated with broad-spectrum antibiotics including IV acyclovir, IV ceftriaxone and doxycycline but since all workup was negative antibiotics have been discontinued, patient was evaluated by psych due to lack of sleep and agitation and was treated with Seroquel it has been gradually wean down, patient has been awake alert back to her baseline in last 48 hours, she has been tolerating diet ,no fevers, therefore she is being discharged to rehab facility as per PT recommendation. Patient has generalized pain recommend to continue Tylenol and physical therapy. Hypothyroidism: continue Levothyroxine Insulin-dependent diabetes mellitus with hyperglycemia. Resume Lantus home dose 52 units b.i.d., Continue SSI, and diabetic diet Morbdi obesity--recommend weight loss and low-calorie diet HTN--stable blood pressure continue home medication Neuropathy--continue Neurontin. Hypokalemia-repleted and normalized. Time Attestation Discharge coordination time: Greater than 30 minutes Quality: Safe Use of Opioids Does Pt have an Active Cancer Diagnosis on the Problem List?: No Quality: Stroke Does the patient have a stroke diagnosis?: No Physical Exam Vital Signs: Vital Signs: Last Vital Signs Temp 97.2 F 05/06/23 11:34 Pulse 83 05/06/23 11:34 Resp 18 05/06/23 11:34 BP 136/66 05/06/23 11:34 Pulse Ox 93 05/06/23 11:34 O2 Del Method Room Air 05/06/23 11:34 BMI result Body Mass Index 50.0 Const: Other: General awake alert x3, in no acute distress. Neck no JVD. CVS regular rate rhythm, Respiratory lungs clear to auscultation, no respiratory distress, no wheeze, no rhonchi. Gastrointestinal abdomen soft,obese, bowel sounds audible, no rigidity non tender Extremities no edema. Neuro moving all 4 extremity, speech clear Skin no rash Psych appropriate affect DS: Data Data Completed and Pending Completed studies during hospitalization [Text1]: Procedures Drainage of Spinal Canal, Percutaneous Approach, Diagnostic (09/28/22) Labs on day of discharge: Laboratory Results - last 24 hr 05/05/23 05/05/23 05/06/23 16:18 20:39 00:05 POC Glucose 336 H 365 H* 298 H 05/06/23 05/06/23 05:50 11:41 POC Glucose 245 H 386 H* Discharge Plan Discharge Anticipated Discharge Date/Time: 05/06/23 13:01 Patient Disposition: Xfer SNF Discharge Diagnosis: Acute encephalopathy Insulin-dependent diabetes mellitus Hypokalemia Referrals: [facility] [Outside] - 1 Day (SHORT TERM REHAB) Bhakti Rodgers MD [Primary Care Provider] - 1 Week Discharge Medications: Continued lorazepam [Ativan] 0.5 mg tablet 0.5 mg PO BID PRN (Reason: anxiety) Qty: 20 0RF clonidine HCl 0.1 mg tablet 0.1 mg PO TID (DME) FreeStyle Lite Strips Strip 1 strip MISCELLANEOUS TID simvastatin 20 mg tablet 20 mg PO BEDTIME insulin lispro 100 unit/mL insulin pen See Protocol subcut TID Protocol: Insulin Correction Scale Less than or equal to 110 ---- Give (units): 0 111 to 150 Give (units): 33 151 to 200 Give (units): 37 201 to 250 Give (units): 41 251 to 300 Give (units): 43 301 to 350 Give (units): 45 Greater than 350 Give (units): 47 Call MD if Blood Glucose > : 400 Rx Instructions: inject subq 3x daily with meals per sliding scale 80-99 inject 31 units 100-149 inject 33 units 150-199 inject 37 units 200-249 inject 41 units 250-299 inject 43 units 300-349 inject 45 units 350-399 inject 47 units 400 and higher: inject 49 units and call insulin glargine [Lantus Solostar U-100 Insulin] 100 unit/mL (3 mL) insulin pen 52 unit subcut BID Rx Instructions: inject 50 units subq in the morning (8am) and 50 units at night (8pm) (DME) pen needle, diabetic [BD Ultra-Fine Micro Pen Needle] 32 gauge x 1/4 needle MISCELLANEOUS Ubrelvy 100 mg tablet 100 mg PO DIRECTED Rx Instructions: take at onset of migraine. MRX1 after 2 hours. Do not exceed 2 doses in 24 hours gabapentin 300 mg capsule 300 mg PO BID Patient Comments: 8am and 2pm levothyroxine 125 mcg tablet 125 mcg PO DAILY aspirin 81 mg Tablet,Delayed Release (Dr/Ec) 81 mg PO DAILY cholecalciferol (vitamin D3) 25 mcg (1,000 unit) Tablet 25 mcg PO DAILY melatonin 10 mg Tablet 10 mg PO BEDTIME Ajovy Autoinjector 225 mg/1.5 mL auto-injector 225 mg subcut QMONTH Rx Instructions: administer 225mg sc q month gabapentin [Neurontin] 300 mg capsule 600 mg PO BEDTIME Discharge Orders: Discharge Order (Routine); Ordered 05/06/23 Ordered By: Michael Hogue Diet: Diabetic diet Activity on Discharge: As tolerated Stand Alone Forms: Patient Portal Discharge page Activity Restrictions/Additional Instructions: Continue medications as prescribed by her PCP for a migraine headache and anxiety Care Plan Goals: Acute encephalopathy with fever resolved, no acute etiology found, history of recurrent similar prior episodes requiring hospitalizations. Health Concerns: Diabetes mellitus continue diabetic diet and insulin follow blood sugar closely. Plan of Treatment: Outpatient follow-up with primary care physician and neurologist call for appointment Assessment: As above Patient Instructions: Migraine Headache (ED), Anxiety (ED)
--- NOTE | 2023-05-06 16:29 | P.CDIM_ITS ---
PROVIDER RESPONSE TEXT: To clarify, the appropriate diagnosis supported by the clinical indicators: Toxic metabolic QUERY TEXT: PHYSICIAN'S DOCUMENTATION REQUEST Date of Query: 05/04/2023 08:42 AM EST Patient Name: BRII BARTLETT Admit Date: 04/28/2023 Dear Michael Hogue, A review of the medical record indicates additional documentation may be needed. Please review below and update the documentation accordingly. Clinical Indicators: Per Hospitalist Progress Note 05/03/23: Acute Encephalopathy presented with headaches, altered mentation and fever, concern for encephalitis vs meningitis Based on the above, please further specify, in the Progress Notes, the known or suspected type of the documented encephalopathy: Metabolic Toxic Toxic metabolic Hypertensive Anoxic Due to a specified condition (such as UTI, hyponatremia, CVA, etc.) Other (explain) Clinically unable to determine (explain) Thank you, Marti Phelps RN Use of terms such as suspected, likely, concern for, or probable (associated with a specific diagnosi s that is being evaluated, monitored, or treated as if it exists) are acceptable and can be coded in the inpatient se tting, when documented at the time of discharge. Please use your independent medical judgment in providing your response. THIS QUERY IS PART OF THE PERMANENT MEDICAL RECORD
[2023-05-06 16:43] LABS: Babesia IgG <1:64 titer (<1:64); Babesia IgM <1:20 titer (<1:20)
== END 2023-05-06 15:56 | disposition skilled nursing facility (03) | DRG 102 ==
LOC: HO.ED 04-28 05:37 → HO.EDOVER 04-28 05:40 → HO.ICU 04-28 13:54 → HO.IMC 04-29 14:29
PROVIDERS: Hospitalist; Internal Medicine; Internal Medicine Critical Care Medicine; Physician Assistant Medical; Admitting Provider Student in an Organized Health Care Education/Training Program; Emergency Provider Internal Medicine; PCP Internal Medicine; Visit Provider Hospitalist
DX: G43.109 Migraine with aura, not intractable, without status migrainosus (principal); G92.8 Other toxic encephalopathy; Z68.43 Body mass index [BMI] 50.0-59.9, adult; A86 Unspecified viral encephalitis; E03.9 Hypothyroidism, unspecified; E78.2 Mixed hyperlipidemia; F39 Unspecified mood [affective] disorder; E11.40 Type 2 diabetes mellitus with diabetic neuropathy, unspecified; E87.6 Hypokalemia; E11.65 Type 2 diabetes mellitus with hyperglycemia; I10 Essential (primary) hypertension; Z20.822 Contact with and (suspected) exposure to COVID-19; Z91.041 Radiographic dye allergy status; Z79.4 Long term (current) use of insulin; Z79.82 Long term (current) use of aspirin; Z79.890 Hormone replacement therapy; Z79.899 Other long term (current) drug therapy
CPT/HCPCS: 0241U; 36415; 70450; 70553; 71045; 80048; 80053; 80202; 81003; 82140; 82550; 82607; 82728; 82746; 82803; 82947; 83605; 83735; 84100; 84443; 85025; 85027; 85652; 86140; 86431; 86617; 86618; 86753; 87040; 87468; 87469; 87478; 87484; 87798; 92610; 93005; 93971; 95816; 97110; 97116; 97162; 99285; A9585; C1758; J0131; J0133; J0290; J0696; J1170; J1200; J1885; J2060; J2270; J2359; J2405; J3030; J3370; J3480

== ENCOUNTER → 2023-04-27 20:15 | Outpatient (BNV) | payer MEDICARE, SELFPAY | PROVIDERS: Admitting Provider Student in an Organized Health Care Education/Training Program; Emergency Provider Internal Medicine; Visit Provider Internal Medicine Cardiovascular Disease | DX: I49.9 Cardiac arrhythmia, unspecified (principal) | CPT/HCPCS: 93010 ==

== ENCOUNTER → 2023-04-28 05:35 | Outpatient (BNV) | payer MEDICARE, SELFPAY | PROVIDERS: Admitting Provider Student in an Organized Health Care Education/Training Program; Emergency Provider Internal Medicine; Visit Provider Student in an Organized Health Care Education/Training Program | DX: R50.9 Fever, unspecified (principal); G93.40 Encephalopathy, unspecified; F41.9 Anxiety disorder, unspecified; G43.909 Migraine, unspecified, not intractable, without status migrainosus | CPT/HCPCS: 99222; 99232; 99233; 99239; 99499 ==

== ENCOUNTER 2023-04-28 09:00 | Outpatient (BNV) | payer MEDICARE, SELFPAY | END 2023-05-02 19:26 | PROVIDERS: Admitting Provider Student in an Organized Health Care Education/Training Program; Emergency Provider Internal Medicine; PCP Internal Medicine; Visit Provider Internal Medicine Cardiovascular Disease | DX: I49.9 Cardiac arrhythmia, unspecified (principal) | CPT/HCPCS: 93010 ==

== ENCOUNTER → 2023-04-28 09:00 | Outpatient (BNV) | payer MEDICARE, SELFPAY | PROVIDERS: Admitting Provider Student in an Organized Health Care Education/Training Program; Emergency Provider Internal Medicine; Visit Provider Internal Medicine Critical Care Medicine | DX: G93.40 Encephalopathy, unspecified (principal); R50.9 Fever, unspecified; G43.909 Migraine, unspecified, not intractable, without status migrainosus; G47.33 Obstructive sleep apnea (adult) (pediatric) | CPT/HCPCS: 36556; 99291; 99499 ==

== ENCOUNTER 2023-06-10 14:38 | Outpatient (AMB) | payer MEDICARE, SELFPAY ==
--- NOTE | 2023-06-10 14:44 | A.OFFVIS_ITS ---
Intake Vital Signs 06/10/23 14:58 Height 5 ft 4 in Weight 253 lb 6 oz BMI 43.5 BP 130/80 Blood Pressure Location Rt brachial Position Sitting Pulse 80 Pulse Source Pulse Oximeter Pulse Oximetry (%) 96 Oxygen Delivery Method Room Air Intake Visit Reasons: f//u appt/ LVM Intake Note: Patient presents for f/u her whole body hurts and Left arm. Continue to have migraines. In late April was in [facility] for migraine. They send her to [facility] for rehab for 5-6 days. Allergies Iodinated Contrast Media [IVP DYE] Allergy (Severe, Verified 06/10/23 14:57) SEDATION,TACHYCARDIA azithromycin Allergy (Unknown, Verified 06/10/23 14:57) Hives erythromycin base [ERYTHROMYCIN BASE] Allergy (Unknown, Verified 06/10/23 14:57) HIVES metformin Adverse Reaction (Unknown, Verified 06/10/23 14:57) Diarrhea Medication List - Last Reconciled 06/10/23 by ANTHONY Almonte aspirin 81 mg PO DAILY blood sugar diagnostic (FreeStyle Lite Strips) cholecalciferol (vitamin D3) 25 mcg PO DAILY clonidine HCl 0.1 mg PO TID fremanezumab-vfrm (Ajovy) 225 mg subcut QMONTH gabapentin 300 mg PO BID gabapentin (Neurontin) 600 mg PO BEDTIME insulin glargine (Lantus Solostar U-100 Insulin) 52 units subcut BID insulin lispro See Protocol sliding scale doses subcut TID levothyroxine 125 mcg PO DAILY lorazepam (Ativan) 0.5 mg PO BID PRN melatonin 10 mg PO BEDTIME pen needle, diabetic (BD Ultra-Fine Micro Pen Needle) simvastatin 20 mg PO BEDTIME ubrogepant (Ubrelvy) 100 mg PO DIRECTED HPI HPI Comments History of Present Illness Details 72-yr-old female presents for f/u visit. Accompanied by her . Since the last, pt had another hospitalization for complex migraine. The day she went to the ER, she had refused to take the Ubrelvy or Lorazepam- pt does not recall this. In the hospital, she was treated for viral encephalitis. Patient and family declined repeat lumbar puncture, as they stated always comes back normal. Her CK was mildly elevated at 367. Since returning home, she has taken the Ubrelvy and Lorazepam and laid down at onset of an episode of anxiety and felt that a headache was coming on. These were effective. She is complaint w/ Ajovy, which she feels it is helping. She continues to have back pain. Walking w/ cane. [facility] Medical History Encephalitis Hypothyroid HTN (hypertension) HLD (hyperlipidemia) Diabetes Complicated migraine Surgical History Hx of left mastectomy Hx of cholecystectomy H/O section Family History Mother Lung cancer Diabetes Depression Daughter Alcohol abuse Father FH: cholecystectomy Social History Household Members: Unknown / Unable to assess Housing: Unknown / Unable to assess Do you presently have visiting nurse or other home services: No (just finished last week) Unable to assess alcohol history related to: Unable to respond Alcohol intake: never 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 Tobacco Use Status: Never used Tobacco e-Cigarette/Vaping Use: Never Used Second Hand Smoke Exposure: No Advance Directives Date on File: 09/28/22 service: No Current occupational status: retired Physical Exam Vital Signs: Last Vital Signs Pulse 80 06/10/23 14:58 BP 130/80 06/10/23 14:58 Pulse Ox 96 06/10/23 14:58 Oxygen Delivery Method Room Air 06/10/23 14:58 BMI result Body Mass Index 43.5 Const General: cooperative and no acute distress Orientation/consciousness: patient oriented x3 Resp Effort & Inspection: normal respiratory effort and able to speak in complete sentences Neuro General: patient oriented x3 Cranial nerves: Yes CN's II-XII intact bilaterally Cognition (Neuro): normal cognition Psych Appearance: grossly normal Mental Status: mental status grossly normal Speech and movement: Normal speech and movement present Affect: normal affect Attitude: cooperative Assessment & Plan Assessment & Plan (1) Migraine with aura: Comment: vs episodes of malignant catatonia- elevated CK > 2000 during August hosp admission, however attack responded to Imitrex and Lorazepam. Code(s): G43.109 - Migraine with aura, not intractable, without status migrainosus (2) Myalgia: Code(s): M79.10 - Myalgia, unspecified site Plan Continue Ajovy for migraine prevention. Continue Ubrelvy prn for now- as I would avoid triptans d/t variable BP/HTN. Continue Lorazepam 0.5mg bid prn- may take at onset of migraine attack w/ Ubrelvy. CK 115 NL 04/28/23, 367 H 05/02/23 (during hosp admit) EEG, September and Apr 2023- limited d/t pt movement, no epileptic activity, in Apr 2023- generalized slowing was observed. Start Venlafaxine Er 37,5mg qam- in hopes this helps mood, headache. Future considerations- depakote. autoimmune encephalitis work-up. f/u in 3 months or sooner prn. Medications: New venlafaxine ER 37.5 mg PO QAM 30 caps 3RF 30 days venlafaxine ER 37.5 mg PO QPM 30 days 30 caps 3RF Coding Level of Care Code Est Pt Level 4 (28865) Diagnoses Migraine with aura G43.109 Myalgia M79.10
[2023-06-10 14:58] VITALS: BP 130/80; PULSE 80; O2SAT 96; BMI 43.5
== END 2023-06-10 16:08 | disposition home or self-care (01) ==
PROVIDERS: PCP Internal Medicine; Visit Provider Nurse Practitioner Family
DX: G43.109 Migraine with aura, not intractable, without status migrainosus (principal); M79.10 Myalgia, unspecified site
CPT/HCPCS: 99214

== ENCOUNTER → 2023-06-10 14:38 | Outpatient (BNVA) | payer MEDICARE, SELFPAY | PROVIDERS: PCP Internal Medicine; Visit Provider Nurse Practitioner Family | DX: G43.109 Migraine with aura, not intractable, without status migrainosus (principal); M79.10 Myalgia, unspecified site; Z79.899 Other long term (current) drug therapy | CPT/HCPCS: 99212 ==

== ENCOUNTER 2023-06-23 10:16 | Outpatient (AMB) | payer MEDICARE, SELFPAY ==
--- NOTE | 2023-06-23 10:21 | HO.NEPHOV ---
HPI HPI Comments History of Present Illness Details I had the privilege of seeing Charissa in follow-up of her mild chronic kidney disease and hypertension. Her blood sugar control is better. She is gaining a lot a weight which has improved a bit now. She does not have any fever, suprapubic pain, dysuria, hematuria, nausea, vomiting, fever, chills or rigors. She feels her thyroid function is under control her on levothyroxine. She is tolerating statins. She does not have any chest pain, shortness of breath, proximal nocturnal dyspnea, orthopnea, pedal edema, orthostatic symptoms, new skin rashes, headache, joint swellings. She has not been taking any nonsteroidal anti-inflammatory medications and tries to keep up with good hydration. She has history of breast cancer remotely. She has lung nodule which is followed up by Dr. De Leon. 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 Tobacco Use Status: Never used Tobacco e-Cigarette/Vaping Use: Never Used Second Hand Smoke Exposure: No Advance Directives Date on File: 09/28/22 service: No Current occupational status: retired Vital Signs 06/23/23 10:22 Height 5 ft 4 in Weight 251 lb 4 oz BMI 43.1 BP 130/60 Blood Pressure Location Rt brachial Position Sitting Pulse 78 Pulse Source Pulse Oximeter Pulse Oximetry (%) 95 Oxygen Delivery Method Room Air Physical Exam Vital Signs: Last Vital Signs Pulse 78 06/23/23 10:22 BP 130/60 06/23/23 10:22 Pulse Ox 95 06/23/23 10:22 Oxygen Delivery Method Room Air 06/23/23 10:22 BMI result Body Mass Index 43.1 Const General: comfortable and no acute distress Orientation/consciousness: patient oriented x3 HEENT Head: Yes normocephalic Mouth: Normal oral and palatal mucosa present Eyes EOM: EOMs intact bilaterally Neck Neck: Yes supple Resp Auscultation: clear to auscultation bilaterally Cardio Jugular venous distension: no JVD Rate: regular rate GI Palpation (GI): Soft to palpation Auscultation: normal bowel sounds General: Yes no CVA tenderness Back/Spine/Pelvis Back: no CVA tenderness Skin General skin exam: no rashes or lesions noted Neuro General: patient oriented x3 and moves all extremities Extrem General: Yes no pedal edema Assessment & Plan Assessment & Plan (1) HTN (hypertension): Code(s): I10 - Essential (primary) hypertension Qualifiers: Hypertension type: primary hypertension Qualified Code(s): I10 - Essential (primary) hypertension Plan She is diabetic and hypertensive. Her blood sugars are suboptimally controlled, but better. Her blood pressure has been at goal. She needs to loose more weight. She was counseled to be more active and lose some weight. She does not take any nonsteroidal anti-inflammatory medications and keep herself hydrated. She may benefit from intra articular injection of her left shoulder. She was on Jardiance which she stopped due to yeast infection. I did not make any medication changes today. Labs ordered; F/U given Orders: Orders Electrolytes Today I10 - Essential (primary) hypertension Protein Creatinine Ratio, Ur Today I10 - Essential (primary) hypertension Blood Urea Nitrogen Today I10 - Essential (primary) hypertension Creatinine Today I10 - Essential (primary) hypertension Coding Level of Care Code Est Pt Level 3 (69469) Diagnoses Primary hypertension I10 Hypertension type: primary hypertension Results Reviewed Nephrology Results: Hgb 11.5 g/dl (12.0-16.0) L 05/05/23 WBC 10.7 X10*3/uL (4.8-10.8) 05/05/23 Plt Count 299 X10*3/uL (160-400) 05/05/23 Sodium 141 mmol/L (135-145) 05/05/23 Potassium 3.5 mmol/L (3.3-5.1) 05/05/23 Chloride 107 mmol/L (96-108) 05/05/23 Carbon Dioxide 25 mmol/L (22-29) 05/05/23 BUN 10 mg/dL (9-16) 05/05/23 Creatinine 0.86 mg/dL (0.5-1.4) 05/05/23 Calcium 9.0 mg/dL (8.4-10.2) 05/05/23 Phosphorus 3.1 mg/dL (2.7-4.5) 04/28/23 Urine Protein Negative mg/dL (Neg-Trace) 04/28/23 Urine Creatinine 67.70 mg/dL 04/14/23 Protein/Creatinin Ratio TNP 04/14/23
[2023-06-23 10:22] VITALS: BP 130/60; PULSE 78; O2SAT 95; BMI 43.1
== END 2023-06-23 11:00 | disposition home or self-care (01) ==
PROVIDERS: Visit Provider Internal Medicine Nephrology
DX: I10 Essential (primary) hypertension (principal)
CPT/HCPCS: 99213

== ENCOUNTER → 2023-06-23 10:16 | Outpatient (BNVA) | payer MEDICARE, SELFPAY | PROVIDERS: Visit Provider Internal Medicine Nephrology | DX: I10 Essential (primary) hypertension (principal); E11.9 Type 2 diabetes mellitus without complications; E66.9 Obesity, unspecified; Z68.41 Body mass index [BMI] 40.0-44.9, adult | CPT/HCPCS: 99212 ==

== ENCOUNTER 2023-07-03 09:27 | Inpatient (IN) | payer MEDICARE, SELFPAY ==
[2023-07-03] VITALS (7 sets, daily range): BP systolic 158–192; BP diastolic 58–86; PULSE 81–126; RESP 14–24; TEMP 36.4–39.6; O2SAT 92–98; BMI 41.8
--- NOTE | ~2023-07-03 | CT_ITS ---
EXAMINATION: CT HEAD WITHOUT CONTRAST (STROKE PROTOCOL) CLINICAL INFORMATION: Stroke protocol. Left-sided COMPARISON: MRI brain from 04/28/2023, CT head from 04/28/2023 TECHNIQUE: Contiguous axial imaging was performed from the skull base to vertex without intravenous administration of contrast. This CT examination was performed using dose optimization techniques as appropriate, variously including the following: *Automated exposure control *Adjustment of mA and/or kV according to patient size (this includes techniques or standardized protocols for targeted exams where dose is matched to indication/reason for exam; i.e. extremities or head) *Use of iterative reconstruction technique DLP: 784 mGy-cm FINDINGS: There is no evidence of acute intracranial hemorrhage or territorial infarction. Chronic white matter small vessel ischemic changes. No abnormal mass effect or midline shift is seen. Hinojosa to white matter differentiation is well preserved. No extra-axial fluid collections are identified. The ventricles are normal in size. There is no abnormal attenuation within the brain parenchyma. The osseous structures and soft tissues are normal. The mastoid air cells and visualized portions of the paranasal sinuses are well aerated. Atherosclerotic calcifications. CT/CT head for stroke IMPRESSION: 1. No acute intracranial pathology. 2. Chronic white matter small vessel ischemic changes. This critical result was discussed with Juliana MORE by telephone on 07/03/2023 9:59 AM and it was ascertained that the content and urgency of the report was understood at the time of direct communication.
--- NOTE | ~2023-07-03 | XR_ITS ---
EXAMINATION: XR CHEST CLINICAL INFORMATION: Cough COMPARISON: 07/03/2023 TECHNIQUE: Frontal view of the chest was obtained. FINDINGS: Heart and mediastinum within normal limits. No vascular congestion. Interval obscuration of the left hemidiaphragm with mild retrocardiac increased markings the left costophrenic angle blunting. Left axillary clips. Degenerative changes. XR/XR chest 1V IMPRESSION: Interval obscuration left hemidiaphragm, question atelectasis, pneumonia and/or effusion.
--- NOTE | ~2023-07-03 | MR_ITS ---
EXAMINATION: MR BRAIN WITHOUT CONTRAST CLINICAL INFORMATION: Left-sided weakness. COMPARISON: MRI dated 04/28/2023. CT from 07/03/2023. TECHNIQUE: Multiplanar, multisequence imaging of the brain was performed without contrast. Limited study with motion artifacts. FINDINGS: No diffusion abnormalities are identified to suggest an acute infarct. The ventricles are normal in size. No mass effect or midline shift is seen. Mild scattered white matter signal changes may be due to chronic microangiopathy. No extra-axial fluid collections are seen. The brainstem and cerebellum are normal. The gradient refocused acquisition is limited by motion artifacts. The craniovertebral junction, marrow signal, and midline structures are normal. The major intracranial flow voids at the level of the [place] are preserved. The dural venous sinus flow voids are maintained. There is mild mucosal thickening in the paranasal sinuses. The mastoid air cells are well aerated. MR/MR head/brain wo con IMPRESSION: Limited study with motion artifacts. No acute intracranial process. Mild chronic white matter microangiopathy.
--- NOTE | ~2023-07-03 | XR_ITS ---
EXAMINATION: XR CHEST CLINICAL INFORMATION: Fever. Tachypnea. COMPARISON: Previous chest x-ray most recent April 2023 TECHNIQUE: Frontal view of the chest was obtained. FINDINGS: No significant abnormality is noted involving the heart, lungs, mediastinum, bony thorax or soft tissues. Degenerative changes of the spine. Surgical clips left breast/axilla. XR/XR chest 1V IMPRESSION: No evidence for acute disease in the chest.
--- NOTE | ~2023-07-03 | CT_ITS ---
EXAMINATION: CLINICAL INFORMATION: Reason for Exam L sided weakness COMPARISON: CT head 04/28/2023 and MRI brain 04/28/2023 TECHNIQUE: Please note the ordered CTA was aborted and only the supervisor unloading radiograph was performed. No angiographic imaging obtained. 8 mGy-cm CT/CT angio head neck stroke FINDINGS/IMPRESSION: [employer] Press Helper radiograph is unremarkable. Upon retrospective review of contemporaneous noncontrast head CT, query new 3 mm hyperdensity along the dorsal aspect of the right precentral gyrus with suggestion of adjacent mild hypodensity for which a small hemorrhage with adjacent vasogenic edema is not excluded (image 17, series 5). This finding can be further elucidated on contrast-enhanced MRI.
--- NOTE | 2023-07-03 09:29 | ECG_ITS ---
Test Reason : WEAKNESS Blood Pressure : / mmHG Vent. Rate : 085 BPM Atrial Rate : 085 BPM P-R Int : 172 ms QRS Dur : 102 ms QT Int : 396 ms P-R-T Axes : 005 038 020 degrees QTc Int : 471 ms Normal sinus rhythm Nonspecific ST abnormality Abnormal ECG When compared with ECG of 02-MAY-2023 19:26, T wave inversion no longer evident in Inferior leads Referred By: Juliana Ramirez Electronically Signed By:GLADYS ALONZO MD
--- NOTE | 2023-07-03 09:33 | ED_ITS ---
HPI - General Adult General Chief complaint: Stroke Stated complaint: STROKE ALERT,L WEAK,VISUAL DIST,LKWT 20MIN PER EMS Time Seen by Provider: 07/03/23 10:27 Source: patient Mode of arrival: ambulatory Limitations: no limitations History of Present Illness HPI narrative: This is a 72-year-old female history of diabetes, hypertension, hypothyroidism, complex migraines, obesity, CVA, CKD presenting to the emergency department with complaints of sudden-onset left-sided upper and lower extremity weakness & b/l blurred vision, this started approximately 20 minutes ago when patient was trying to write out a check she suddenly became weak to her left upper and lower extremity was unable to move that side, she reports before this she had a slight headache and just was not feeling great but had no difficulty speaking, weakness or visual disturbences. On arrival NIH stroke scale of 9. Stroke protocol immediately initiated. Related Data Home Medications Medication Instructions Recorded Confirmed blood sugar diagnostic (FreeStyle 09/28/22 06/10/23 Lite Strips) clonidine HCl 0.1 mg tablet 0.1 mg PO TID 09/28/22 07/03/23 gabapentin 300 mg capsule 300 mg PO BID@0900,1500 09/28/22 07/03/23 insulin glargine 100 unit/mL (3 53 unit subcut BID 09/28/22 07/03/23 mL) subcutaneous pen (Lantus Solostar U-100 Insulin) insulin lispro 100 unit/mL See Protocol subcut TID 09/28/22 07/03/23 subcutaneous pen pen needle, diabetic 32 gauge x 09/28/22 06/10/2305/13 (BD Ultra-Fine Micro Pen Needle) simvastatin 20 mg tablet 20 mg PO BEDTIME 09/28/22 07/03/23 ubrogepant 100 mg tablet (Ubrelvy) 100 mg PO Q2H PRN Migraine Headache 09/28/22 07/03/23 aspirin 81 mg tablet,delayed 81 mg PO DAILY 10/01/22 07/03/23 release cholecalciferol (vitamin D3) 25 25 mcg PO DAILY 10/01/22 07/03/23 mcg (1,000 unit) tablet melatonin 10 mg tablet 10 mg PO BEDTIME 10/01/22 07/03/23 gabapentin 300 mg capsule 600 mg PO BEDTIME 04/14/23 07/03/23 (Neurontin) levothyroxine 125 mcg tablet 125 mcg PO DAILY@0600 04/14/23 07/03/23 fremanezumab-vfrm 225 mg/1.5 mL 225 mg subcut QMONTH 04/28/23 07/03/23 subcutaneous auto-injector (Ajovy) venlafaxine 37.5 mg 37.5 mg PO DAILY 07/03/23 07/03/23 capsule,extended release 24 hr Previous Rx's Medication Instructions Recorded lorazepam 0.5 mg tablet (Ativan) 0.5 mg PO BID PRN anxiety #20 tabs 02/14/23 Allergies Allergy/AdvReac Type Severity Reaction Status Date / Time Iodinated Contrast Media Allergy Severe SEDATION,TA Verified 07/03/23 10:00 [IVP DYE] CHYCARDIA azithromycin Allergy Unknown Hives Verified 07/03/23 10:00 erythromycin base Allergy Unknown HIVES Verified 07/03/23 10:00 [ERYTHROMYCIN BASE] metformin AdvReac Unknown Diarrhea Verified 07/03/23 10:00 Review of Systems 2 Review of Systems: Yes all other systems are reviewed and are negative [facility] Past Medical History Attestation statement: The following information was validated with the patient. Source: old records reviewed and nursing notes reviewed Medical History Anxiety Migraine Obstructive sleep apnea Encephalitis Hypothyroid HTN (hypertension) HLD (hyperlipidemia) Diabetes Complicated migraine Surgical History Hx of left mastectomy Hx of cholecystectomy H/O section Family History Family History Mother Lung cancer Diabetes Depression Daughter Alcohol abuse Father FH: cholecystectomy Social History Social History Household Members: Unknown / Unable to assess Housing: Unknown / Unable to assess Do you presently have visiting nurse or other home services: No (just finished last week) Unable to assess alcohol history related to: Unable to respond Alcohol intake: never 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 Tobacco Use Status: Never used Tobacco Smoked in Last 30 Days: No e-Cigarette/Vaping Use: Never Used Second Hand Smoke Exposure: No Use of substances other than those prescribed or required for medical reasons: No Advance Directives: Yes Advance Directives on File: Yes Advance Directives Date on File: 09/28/22 service: No Current occupational status: retired Physical Exam ED Vital Signs: Vital Signs - 24 hr 07/03/23 09:53 07/03/23 11:23 Temperature 97.6 F 97.6 F Pulse Rate 88 81 Respiratory Rate 20 18 Blood Pressure 168/78 H 158/64 H Pulse Oximetry 98 94 Oxygen Delivery Method Room Air Room Air BMI result Body Mass Index 41.8 vss Appearance: Alert.? Oriented X3.? No acute distress.? Head: Normocephalic, atraumatic, no step-offs or deformities. Face symmetric Eyes: Pupils equal, round and reactive to light.? ENT: Pharynx normal.? Neck: Normal inspection.? Neck supple.? CVS: Normal heart rate and rhythm.? Pulses normal.? Respiratory: No respiratory distress.? Breath sounds normal.? Abdomen: Soft and nontender.? Skin: Skin warm and dry.? Normal skin color.? Normal skin turgor.? Extremities: No lower extremity edema.? No calf ttp. Patient unable to lift her left upper or lower extremity off of the bed. Part of 5 strength to right upper and right lower extremity. Normal sensation to bilateral upper extremities and lower extremities. Neuro: Oriented X 3.? No motor deficit.? No sensory deficit. CN 2-12 intact Course Reevaluation(s) Reevaluation #1: CTA delayed secondary to patient being a difficult stick. I did obtain a ultrasound-guided IV in the right forearm. No complications. Patient tolerated procedure well. CTA pending. Head CT pending. Time: 09:58 Reevaluation #2: who is here at the bedside now tells me that this is how her complex migraines present. Will discuss w/ neurology my attending Dr. Calderón aware of case. Time: 09:58 Reevaluation #3: Dry CT of head negative for intracranial hemorrhage. Time: 10:00 Additional Reevaluation(s): Line infiltrated in CT scan. Patient to be brought back to the room. 1010 No TNK at this time due to hx of similar events per patient and , per neurology Dr. Hanks 1031 Explained no TNK to patient and both of them say they don't want it anyway because this is likely a migraine states its been much worse before 1148 Patient moving upper and lower extremities bilaterally. LARA present diffuse in nature. No focal defects at this time they have resolved. Global weakness present 1230 I received a call from neuro radiology stating that there may be a new 3 mm hyperdensity along the dorsal aspect of the right precentral gyrus with suggestion of adjacent mild hypodensity O2 small hemorrhage with adjacent vasogenic edema is not excluded. This finding can be further evaluated via MRI. Initially this patient was evaluated by neurology who states this is more likely complex migraine or status migrainous. However at this time due to this finding and MRI of the head will be ordered hospital admission is warranted. MRI ordered at this time Medications Administered Discontinued Medications Generic Name Dose Route Start Last Admin Trade Name Freq PRN Reason Stop Dose Admin Aspirin 81 mg 07/03/23 10:09 07/03/23 12:13 Aspirin Enteric Coated 81 Mg Tablet.Dr PO 07/03/23 10:10 81 mg ONCE ONE Administration Diphenhydramine HCl 25 mg 07/03/23 13:40 07/03/23 13:46 Diphenhydramine Hcl 50 Mg/Ml Vial IM 07/03/23 13:41 25 mg ONCE ONE Administration Lorazepam 1 mg 07/03/23 11:56 07/03/23 12:13 Lorazepam 1 Mg Tablet PO 07/03/23 11:57 1 mg ONCE ONE Administration Metoclopramide HCl 10 mg 07/03/23 13:40 07/03/23 13:47 Metoclopramide Hcl 10 Mg/2 Ml Vial IM 07/03/23 13:41 10 mg ONCE ONE Administration Morphine Sulfate 4 mg 07/03/23 10:24 07/03/23 12:16 Morphine Sulfate 4 Mg/Ml Cartridge IVPUSH 07/03/23 10:25 Not Given ONCE ONE Protocol Morphine Sulfate 15 mg 07/03/23 11:56 07/03/23 12:13 Morphine Sulfate Immed Release 15 Mg Tablet PO 07/03/23 11:57 15 mg ONCE ONE Administration Procedures Procedure Narrative Procedure Narrative: I was asked to assist with IV access. The patient was a tough stick through the day. I was able to place a 2-1/2 inch 18 gauge IV in the right upper arm. There was good blood return and the line flushed well postprocedure. There were no complications Medical Decision Making Medical Decision Making MDM Narrative: 72-year-old female presents with sudden onset left-sided weakness last known well time about 20 minutes prior to arrival (9:10) Physical exam with left-sided deficits to upper and lower extremities. Symmetric face. Alert and oriented x4. NIH stroke scale of 9. At this time concern for stroke versus intracranial hemorrhage. Will rule out metabolic derangements. Stroke alert initiated. Differential Diagnosis Differential Diagnoses: The differential diagnosis associated with the presentation includes At this time concern for stroke versus intracranial hemorrhage. Will rule out metabolic derangements. Admission/Observation Consideration of admission/observation: Escalation of care including admission/observation considered Likely Consult Healthcare Provider Management of the patient was discussed with: Master Control Operator Lab Data 07/03/23 09:57 07/03/23 09:57 Labs: Lab Results 07/03/23 07/03/23 07/03/23 Range/Units 09:33 09:57 09:58 WBC 10.1 (4.8-10.8) X10*3/uL RBC 4.69 D (4.20-5.50) X10*6/uL Hgb 13.7 (12.0-16.0) g/dl Hct 41.2 (37.0-47.0) % MCV 87.8 (80.0-98.0) fL MCH 29.2 (27.0-33.0) pg MCHC 33.3 (31.0-35.0) g/dl RDW 12.5 (11.0-16.0) % Plt Count 282 (160-400) X10*3/uL MPV 11.5 (9.4-12.3) fL Immature Gran % (Auto) 0.3 (0.0-0.4) % Neut % (Auto) 48.7 (45-73) % Lymph % (Auto) 38.0 (20-40) % [place] % (Auto) 9.9 (2-11) % Eos % (Auto) 2.7 (0-4) % Baso % (Auto) 0.4 (0-2) % Lymph # (Auto) 3.9 (1.2-4.9) X10*3/uL [place] # (Auto) 1.0 (0.1-1.2) X10*3/uL Eos # (Auto) 0.3 (0.0-0.4) X10*3/uL Baso # (Auto) 0.0 (0.0-0.2) X10*3/uL Abs Immat Gran (auto) 0.03 (0.00-0.03) X10*3/uL Absolute Neuts (auto) 4.9 (2.0-8.3) x10*3/uL Absolute Nucleated RBC 0.000 (0.0-0.012) X10*3/uL Nucleated RBC % (auto) 0.0 (0.0-0.2) /100WBC PT 11.8 (11.1-13.3) SEC Whole Blood PT 12.3 (11.1-13.5) sec INR 1.0 (0.9-1.1) Whole Blood INR 1.0 (0.9-1.1) APTT 31.6 (26.0-36.8) SEC Sodium 142 (135-145) mmol/L Potassium 3.8 (3.3-5.1) mmol/L Chloride 105 (96-108) mmol/L Carbon Dioxide 24 (22-29) mmol/L Anion Gap 17 (12-20) BUN 20 H (9-16) mg/dL Creatinine 0.93 (0.5-1.4) mg/dL Estim Creat Clear Calc 73.3 Estimated GFR 60 POC Glucose 83 (60-115) mg/dL Random Glucose 81 (60-115) mg/dL Lactic Acid 2.0 (0.5-2.0) mmol/L Calcium 9.5 (8.4-10.2) mg/dL Total Creatine Kinase 43 (26-140) U/L Troponin I High Sens < 2.7 (<3.5-17.0) ng/L C-Reactive Protein 0.34 (< or = 0.50) mg/dL Hold Yellow Top See Note 07/03/23 Range/Units 14:00 WBC (4.8-10.8) X10*3/uL RBC (4.20-5.50) X10*6/uL Hgb (12.0-16.0) g/dl Hct (37.0-47.0) % MCV (80.0-98.0) fL MCH (27.0-33.0) pg MCHC (31.0-35.0) g/dl RDW (11.0-16.0) % Plt Count (160-400) X10*3/uL MPV (9.4-12.3) fL Immature Gran % (Auto) (0.0-0.4) % Neut % (Auto) (45-73) % Lymph % (Auto) (20-40) % [place] % (Auto) (2-11) % Eos % (Auto) (0-4) % Baso % (Auto) (0-2) % Lymph # (Auto) (1.2-4.9) X10*3/uL [place] # (Auto) (0.1-1.2) X10*3/uL Eos # (Auto) (0.0-0.4) X10*3/uL Baso # (Auto) (0.0-0.2) X10*3/uL Abs Immat Gran (auto) (0.00-0.03) X10*3/uL Absolute Neuts (auto) (2.0-8.3) x10*3/uL Absolute Nucleated RBC (0.0-0.012) X10*3/uL Nucleated RBC % (auto) (0.0-0.2) /100WBC PT (11.1-13.3) SEC Whole Blood PT (11.1-13.5) sec INR (0.9-1.1) Whole Blood INR (0.9-1.1) APTT (26.0-36.8) SEC Sodium (135-145) mmol/L Potassium (3.3-5.1) mmol/L Chloride (96-108) mmol/L Carbon Dioxide (22-29) mmol/L Anion Gap (12-20) BUN (9-16) mg/dL Creatinine (0.5-1.4) mg/dL Estim Creat Clear Calc Estimated GFR POC Glucose 144 H (60-115) mg/dL Random Glucose (60-115) mg/dL Lactic Acid (0.5-2.0) mmol/L Calcium (8.4-10.2) mg/dL Total Creatine Kinase (26-140) U/L Troponin I High Sens (<3.5-17.0) ng/L C-Reactive Protein (< or = 0.50) mg/dL Hold Yellow Top Independent Interpretation I performed an independent interpretation of an: CT Scan Radiology Impression Discussion of test interpretation with radiology: I have reviewed the radiologist's reading. Chronic Conditions Patient?s care impacted by: Diabetes, Hypertension and Other (Hypothyroidism, obesity) Critical Care Time Critical Care Time Critical Care Time: Yes Total Critical Care Time: 60 Attestation: I attest to this time spent taking care of the patient, obtaining history, physical, reviewing labs, imaging, speaking to my attending, speaking to specialist. Discharge Plan Discharge Clinical Impression: Status migrainosus, Headache, Left-sided weakness Patient Disposition: Still a Patient
[2023-07-03 09:37] LABS: Prothrombin Time Whole Bld POC 12.3 sec (11.1-13.5)
[2023-07-03 09:38] LABS: Glucose, Whole Blood 83 mg/dL (60-115)
[2023-07-03 10:08] LABS: MANUAL DIFF FLAG NO
[2023-07-03 10:11] LABS: Basophils Percent Auto 0.4 % (0-2); Eosinophils Absolute Auto 0.3 X10*3/uL (0.0-0.4); Eosinophils Percent Auto 2.7 % (0-4); Hematocrit 41.2 % (37.0-47.0); Hemoglobin 13.7 g/dl (12.0-16.0); Imm Gran Abs Auto 0.03 X10*3/uL (0.00-0.03); Imm Gran Pct Auto 0.3 % (0.0-0.4); Lymphocytes Absolute Auto 3.9 X10*3/uL (1.2-4.9); Mean Corpuscular HGB Conc 33.3 g/dl (31.0-35.0); Mean Corpuscular Hemoglobin 29.2 pg (27.0-33.0); Mean Corpuscular Volume 87.8 fL (80.0-98.0); Mean Platelet Volume 11.5 fL (9.4-12.3); Monocytes Percent Auto 9.9 % (2-11); Neutrophils Absolute Auto 4.9 x10*3/uL (2.0-8.3); Neutrophils Percent Auto 48.7 % (45-73); Platelet Count 282 X10*3/uL (160-400); Red Blood Count 4.69 X10*6/uL (4.20-5.50); Red Cell Distribution Width 12.5 % (11.0-16.0); White Blood Count 10.1 X10*3/uL (4.8-10.8)
--- NOTE | 2023-07-03 10:12 | PC.NURSE ---
per , pt presents similarly when she has her migraines. at bedside
[2023-07-03 10:18] LABS: Prothrombin Time 11.8 SEC (11.1-13.3)
[2023-07-03 10:20] LABS: Partial Thromboplastin Time 31.6 SEC (26.0-36.8)
[2023-07-03 10:21] LABS: Stroke Lab Use COMPLETE
[2023-07-03 10:28] LABS: Anion Gap 17 (12-20); Blood Urea Nitrogen 20 mg/dL (9-16); Calcium 9.5 mg/dL (8.4-10.2); Carbon Dioxide 24 mmol/L (22-29); Chloride 105 mmol/L (96-108); Creatinine Clr Calc Pharmacy 73.3; Estimated Glomerular Filt Rate 60; Glucose Random 81 mg/dL (60-115); Potassium 3.8 mmol/L (3.3-5.1); Sodium 142 mmol/L (135-145)
--- NOTE | 2023-07-03 10:30 | PC.NURSE ---
pt presents to ED via EMS from home. pt was opening mail when her vision bilat became blurry and she was having left sided weakness. family called for EMS, reports it started around 815AM. per pt has complex migraines and this has happened before. pt is alert and oriented, breathing even and unlabored, pt tearful. speech noted to be slightly slurring. pt reports head pain, 10/10. pt denies other pain, SOB. pt on bedside lunchroom monitor. multiple attempts at IV via US by provider.
[2023-07-03 10:33] LABS: Troponin-I High Sensitivity < 2.7 ng/L (<3.5-17.0)
--- NOTE | 2023-07-03 11:15 | PC.NURSE ---
Multiple IV attempts made by multiple providers with and without ultrasound, unsuccessful. Only able to attempt on right side, left side no BPs or venipuncture due to mastectomy.
[2023-07-03] MEDS: Aspirin Enteric Coated 81 MG TABLET.DR PO (12:13)
[2023-07-03] MEDS: Morphine Sulfate Immed Release 15 MG TABLET PO (12:13)
[2023-07-03] MEDS: LORazepam 1 MG TABLET PO (12:13)
[2023-07-03 12:21] LABS: C Reactive Protein 0.34 mg/dL (< or = 0.50)
--- NOTE | 2023-07-03 13:12 | PM.NEUROCN ---
History of Present Illness Data of Consult Service Date: 07/03/23 Primary Care Provider: Bhakti Rodgers MD [facility] Reason for consult: Left-sided weakness and headache 72 years old woman with underlying history of migraine and migraine associated hemibody weakness in the past recovering on itself came to hospital with a headache and left-sided weakness. There was no associated nausea or vomiting or double vision or seizure. After discussing the case with emergency room physician, it was decided that this might have been complicated migraine and she was not treated with TNK. When I saw her she, her left-sided weakness was somewhat improved but she was complaining of severe headache. She was also complaining of pain all over body. There was no complaint of any recent cold or flu or cough. Review of Systems Review of Systems: Severe headache. [facility] Past Medical History Medical History Anxiety Migraine Obstructive sleep apnea Encephalitis Hypothyroid HTN (hypertension) HLD (hyperlipidemia) Diabetes Complicated migraine Family History Family History Mother Lung cancer Diabetes Depression Daughter Alcohol abuse Father FH: cholecystectomy Surgical History Surgical History Hx of left mastectomy Hx of cholecystectomy H/O section Social History Social History Household Members: Unknown / Unable to assess Housing: Unknown / Unable to assess Do you presently have visiting nurse or other home services: No (just finished last week) Unable to assess alcohol history related to: Unable to respond Alcohol intake: never 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 Tobacco Use Status: Never used Tobacco Smoked in Last 30 Days: No e-Cigarette/Vaping Use: Never Used Second Hand Smoke Exposure: No Use of substances other than those prescribed or required for medical reasons: No Advance Directives: Yes Advance Directives on File: Yes Advance Directives Date on File: 09/28/22 service: No Current occupational status: retired Meds Allergies Allergy/AdvReac Type Severity Reaction Status Date / Time Iodinated Contrast Media Allergy Severe SEDATION,TA Verified 07/03/23 10:00 [IVP DYE] CHYCARDIA azithromycin Allergy Unknown Hives Verified 07/03/23 10:00 erythromycin base Allergy Unknown HIVES Verified 07/03/23 10:00 [ERYTHROMYCIN BASE] metformin AdvReac Unknown Diarrhea Verified 07/03/23 10:00 Home Medications Medication Instructions Recorded Confirmed Last Taken Type blood sugar diagnostic (FreeStyle 09/28/22 06/10/23 Unknown History Lite Strips) clonidine HCl 0.1 mg tablet 0.1 mg PO TID 09/28/22 06/10/23 Unknown History gabapentin 300 mg capsule 300 mg PO BID 09/28/22 06/10/23 Unknown History insulin glargine 100 unit/mL (3 52 unit subcut BID 09/28/22 06/10/23 Unknown History mL) subcutaneous pen (Lantus Solostar U-100 Insulin) insulin lispro 100 unit/mL See Protocol subcut TID 09/28/22 06/10/23 Unknown History subcutaneous pen pen needle, diabetic 32 gauge x 09/28/22 06/10/23 Unknown History 1/4 (BD Ultra-Fine Micro Pen Needle) simvastatin 20 mg tablet 20 mg PO BEDTIME 09/28/22 06/10/23 Unknown History ubrogepant 100 mg tablet (Ubrelvy) 100 mg PO DIRECTED 09/28/22 06/10/23 Unknown History aspirin 81 mg tablet,delayed 81 mg PO DAILY 10/01/22 06/10/23 Unknown History release cholecalciferol (vitamin D3) 25 25 mcg PO DAILY 10/01/22 06/10/23 Unknown History mcg (1,000 unit) tablet melatonin 10 mg tablet 10 mg PO BEDTIME 10/01/22 06/10/23 Unknown History gabapentin 300 mg capsule 600 mg PO BEDTIME 04/14/23 06/10/23 Unknown History (Neurontin) levothyroxine 125 mcg tablet 125 mcg PO DAILY 04/14/23 06/10/23 Unknown History fremanezumab-vfrm 225 mg/1.5 mL 225 mg subcut QMONTH 04/28/23 06/10/23 04/21/23 History subcutaneous auto-injector (Ajovy) venlafaxine 37.5 mg 37.5 mg PO DAILY 07/03/23 Unknown History capsule,extended release 24 hr Physical Exam Vital Signs: Vital Signs: Last Vital Signs Temp 97.6 F 07/03/23 11:23 Pulse 81 02/24/24 11:23 Resp 18 07/03/23 11:23 BP 158/64 H 07/03/23 11:23 Pulse Ox 94 07/03/23 11:23 O2 Del Method Room Air 07/03/23 11:23 BMI result Body Mass Index 41.8 Neuro: Other: She is alert and awake in moderate distress complaining of frontal throbbing headache. Face is symmetrical. Visual shaw are full. She has keeping a left eye somewhat closed. She is able to lift left arm or leg against gravity but she is doing better with right side. Plantars are flexor. Exam is limited. Results Labs 07/03/23 09:57 07/03/23 09:57 Labs: Short CBC 07/03/23 Range/Units 09:57 WBC 10.1 (4.8-10.8) X10*3/uL Hgb 13.7 (12.0-16.0) g/dl Hct 41.2 (37.0-47.0) % Plt Count 282 (160-400) X10*3/uL BMP 07/03/23 09:57 Sodium 142 Potassium 3.8 Chloride 105 Carbon Dioxide 24 BUN 20 H Creatinine 0.93 Calcium 9.5 Cardiac Enzymes 07/03/23 Range/Units 09:57 Total Creatine Kinase 43 (26-140) U/L CTA of brain did not reveal any definite abnormality. CTA was okay. Assessment and Plan (1) Status migrainosus: Status: Acute 72 years old woman who probably is going through a severe migraine also with left-sided weakness. In these cases, there is always a possibility of a stroke but because of her previous history risk of treating with TNK was not taken. She was also complaining of overall body pain and previously she had high CPK level. Polymyalgia rheumatica/polymyositis was also a possibility. My recommendation is to treat her with 500 mg Solu-Medrol 1 does now an order serum CPK, CRP, and sed rate. If these labs are abnormal, I recommend continuing steroid treatment with prednisone 20 mg a day for few weeks and then slowly tapering it off or to bring it to minimum. In the meantime, for migraine, Fioricet 2 tablets q.day p.r.n. is recommended. As far as controlling or preventive medicine for migraine are concerned, she could have that discussion with a neurologist when she is discharged. A noncontrast MRI of brain is also recommended to put light into the possibility of stroke or to find if the abnormality reported by radiologist is artifactual or real. Procedures Date of Service Date of Service: 07/03/23
--- NOTE | 2023-07-03 13:45 | PC.NURSE ---
Pt to be brought to MRI and started vomiting, provider aware, IM medications ordered and given
[2023-07-03] MEDS: diphenhydrAMINE HCL 50 MG/ML VIAL 25 MG IM (13:46)
--- NOTE | 2023-07-03 13:46 | PM.IMHP ---
History of Present Illness Date of Service: 07/03/23 Attending physician on admission: Bobo Juarez Chief Complaint: Left-sided weakness and blurred vision Addendum: Patient became tachycardic, tachypneic, and spiked a fever up to 103.2 during the evening while still in the ED. patient continued to be somnolent and lethargic, arousable but immediately falling back asleep. Unclear if this is secondary to an infectious source, or part of patient's complex migraine presentation. Will check UA, CXR, respiratory panel, lactic acid, blood cultures, and empirically start patient on ceftriaxone and vancomycin. Pt is a 72-year-old female with a PMH significant for?complex migraines, insulin-dependent type 2 diabetes with neuropathy, HLD, and hypothyroidism who presents to the ED for evaluation of sudden-onset left sided upper and lower extremity weakness. Patient is somnolent but arousable at time of interview and exam, but falling back asleep without fully answering questions and thus incapable of providing accurate HPI, which is instead obtained from chart and provider review and family who was at bedside. Patient was apparently writing out a check earlier this morning when she suddenly could not move the left side of her body. Did not experience any nausea, vomiting, acute vision changes, difficulty speaking, or seizure-like activity. Soon after developed a severe headache and all-over body aches. states that patient has had similar presentations in the past for complex migraines that often look like a stroke. Reports patient can either have left-sided or right-sided or whole body weakness. Patient will often then have a rough next couple of days, including becoming altered and having vivid hallucinations. reports she will mostly just sleep for the next 2-3 days before recovering to baseline mentation. Pt has had extensive workup in the past for these episodes, including LP, 24 hour EEG, CT and MRI of head, all of which have been negative. ID has been consulted in the past who have ruled out infectious etiology. Today, Neurology was consulted and, given patient's history, elected to not give TNK. Advised to give 500 mg Solu-Medrol x1 dose as polymyalgia rheumatica/polymyositis was also on the differential. Pt was mildly hypertensive at 168/78 but vitals were otherwise WNL and labs were grossly unremarkable. CT head found no acute intracranial pathology but showed chronic white matter small-vessel ischemic changes. CTA of head and neck found question of 3 mm hyperdensity along dorsal aspect of right precentral gyrus with suggestion of adjacent mild hypodensity, can not exclude small hemorrhage with adjacent vasogenic edema. Pt then had an MRI of the brain which was negative for acute intracranial pathology. EKG demonstrated normal sinus rhythm with nonspecific ST abnormality. Pt was treated with aspirin, Ativan, morphine, Benadryl, and metoclopramide. Pt will be admitted to the hospital for further treatment and workup for left-sided weakness in the setting of likely complex migraine. Review of Systems Review of Systems: Unable to obtain due to patient's mentation [facility] Medical History Anxiety Migraine Obstructive sleep apnea Encephalitis Hypothyroid HTN (hypertension) HLD (hyperlipidemia) Diabetes Complicated migraine Family History Mother Lung cancer Diabetes Depression Daughter Alcohol abuse Father FH: cholecystectomy Surgical History Hx of left mastectomy Hx of cholecystectomy H/O section Social History Household Members: Unknown / Unable to assess Housing: Unknown / Unable to assess Do you presently have visiting nurse or other home services: No (just finished last week) Unable to assess alcohol history related to: Unable to respond Alcohol intake: never 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 Tobacco Use Status: Never used Tobacco Smoked in Last 30 Days: No e-Cigarette/Vaping Use: Never Used Second Hand Smoke Exposure: No Use of substances other than those prescribed or required for medical reasons: No Advance Directives: Yes Advance Directives on File: Yes Advance Directives Date on File: 09/28/22 Nutrition Risks: No Nutritional Risk service: No Current occupational status: retired Meds Allergies Allergy/AdvReac Type Severity Reaction Status Date / Time Iodinated Contrast Media Allergy Severe SEDATION,TA Verified 07/03/23 10:00 [IVP DYE] CHYCARDIA azithromycin Allergy Unknown Hives Verified 07/03/23 10:00 erythromycin base Allergy Unknown HIVES Verified 07/03/23 10:00 [ERYTHROMYCIN BASE] metformin AdvReac Unknown Diarrhea Verified 07/03/23 10:00 Home Medications Medication Instructions Recorded Confirmed Last Taken Type blood sugar diagnostic (FreeStyle 09/28/22 06/10/23 Unknown History Lite Strips) clonidine HCl 0.1 mg tablet 0.1 mg PO TID 09/28/22 07/03/23 07/03/23 09:00 History gabapentin 300 mg capsule 300 mg PO BID@0900,1500 09/28/22 07/03/23 07/03/23 09:00 History insulin glargine 100 unit/mL (3 53 unit subcut BID 09/28/22 07/03/23 07/03/23 09:00 History mL) subcutaneous pen (Lantus Solostar U-100 Insulin) insulin lispro 100 unit/mL See Protocol subcut TID 09/28/22 07/03/23 07/03/23 09:00 History subcutaneous pen pen needle, diabetic 32 gauge x 09/28/22 06/10/23 Unknown History 1/4 (BD Ultra-Fine Micro Pen Needle) simvastatin 20 mg tablet 20 mg PO BEDTIME 09/28/22 07/03/23 07/02/23 History ubrogepant 100 mg tablet (Ubrelvy) 100 mg PO Q2H PRN Migraine Headache 09/28/22 07/03/23 Unknown History aspirin 81 mg tablet,delayed 81 mg PO DAILY 10/01/22 07/03/23 07/03/23 09:00 History release cholecalciferol (vitamin D3) 25 25 mcg PO DAILY 10/01/22 07/03/23 07/03/23 09:00 History mcg (1,000 unit) tablet melatonin 10 mg tablet 10 mg PO BEDTIME 10/01/22 07/03/23 07/02/23 History gabapentin 300 mg capsule 600 mg PO BEDTIME 04/14/23 07/03/23 07/02/23 History (Neurontin) levothyroxine 125 mcg tablet 125 mcg PO DAILY@0600 04/14/23 07/03/23 07/03/23 06:00 History fremanezumab-vfrm 225 mg/1.5 mL 225 mg subcut QMONTH 04/28/23 07/03/23 04/21/23 History subcutaneous auto-injector (Ajovy) venlafaxine 37.5 mg 37.5 mg PO DAILY 07/03/23 07/03/23 07/03/23 09:00 History capsule,extended release 24 hr Physical Exam Vital Signs and Narrative: Vital Signs: Last Vital Signs Temp 97.6 F 07/03/23 11:23 Pulse 81 07/03/23 11:23 Resp 18 07/03/23 11:23 BP 158/64 H 07/03/23 11:23 Pulse Ox 94 07/03/23 11:23 O2 Del Method Room Air 07/03/23 11:23 BMI result Body Mass Index 41.8 General: Somnolent but arousable, falls immediately back asleep. In no acute distress Resp: CTA bilaterally CVS: S1, S2, RRR GI: +BS, NT, no distention Skin: Warm, dry Neuro: Cranial nerves II-XII grossly intact bilaterally. Motor grossly intact bilaterally. Neuro exam limited d/t pt's sedation. Extremities: No edema Results Labs 07/03/23 09:57 07/03/23 09:57 Labs: Laboratory Results - last 24 hr 07/03/23 07/03/23 07/03/23 09:33 09:57 09:58 MCV 87.8 MCH 29.2 MCHC 33.3 RDW 12.5 Plt Count 282 MPV 11.5 Immature Gran % (Auto) 0.3 Neut % (Auto) 48.7 Lymph % (Auto) 38.0 Frederick % (Auto) 9.9 Eos % (Auto) 2.7 Baso % (Auto) 0.4 Lymph # (Auto) 3.9 Frederick # (Auto) 1.0 Eos # (Auto) 0.3 Baso # (Auto) 0.0 Abs Immat Gran (auto) 0.03 Absolute Neuts (auto) 4.9 Absolute Nucleated RBC 0.000 Nucleated RBC % (auto) 0.0 PT 11.8 Whole Blood PT 12.3 INR 1.0 Whole Blood INR 1.0 APTT 31.6 Anion Gap 17 Estim Creat Clear Calc 73.3 Estimated GFR 60 POC Glucose 83 Random Glucose 81 Lactic Acid 2.0 Calcium 9.5 Total Creatine Kinase 43 Troponin I High Sens < 2.7 C-Reactive Protein 0.34 Hold Yellow Top See Note Imaging Radiologist's Impressions: Impressions Head CT 07/03/23 09:40 IMPRESSION: 1. No acute intracranial pathology. 2. Chronic white matter small vessel ischemic changes. This critical result was discussed with Juliana MORE by telephone on 07/03/2023 9:59 AM and it was ascertained that the content and urgency of the report was understood at the time of direct communication. Head/Neck CTA 07/03/23 12:05 FINDINGS/IMPRESSION: [employer] Consultant radiograph is unremarkable. Upon retrospective review of contemporaneous noncontrast head CT, query new 3 mm hyperdensity along the dorsal aspect of the right precentral gyrus with suggestion of adjacent mild hypodensity for which a small hemorrhage with adjacent vasogenic edema is not excluded (image 17, series 5). This finding can be further elucidated on contrast-enhanced MRI. Assessment and Plan (1) Left-sided weakness: Status: Acute Plan Pt is a 72-year-old female with a PMH significant for?complex migraines, insulin-dependent type 2 diabetes with neuropathy, HLD, and hypothyroidism who presents to the ED for evaluation of sudden-onset left sided upper and lower extremity weakness. Pt will be admitted to the hospital for further treatment and workup for left-sided weakness in the setting of likely complex migraine. Left-sided weakness Likely secondary to complex migraine, pt with hx of similar presentations; workup in past has included LP, 24 hour EEG, CT and MRI of head, all negative; ID consult ruled out infectious etiology Stroke less likely: MRI negative for acute intracranial process Polymyalgia rheumatica/polymyositis less likely: CRP and CPK WNL; ESR pending Pt was given 500mg Solu-Medrol, will defer additional steroids for now Pt on Ajovy injections and Ubrelvy at home for complex migraines Will treat with Fioricet 2 tablets daily prn Neurology consult Insulin-dependent diabetes type 2 Sliding-scale insulin, Lantus Diabetic diet Hypothyroidism Continue levothyroxine HLD Continue statin Mood disorder Continue venlafaxine, Ativan, clonidine Obesity Class III Weight loss encouraged DNR/DNI Attending:?Dr. Juarez DVT Prophylaxis: Lovenox Pt will require a hospitalization of at least two nights for treatment of?left-sided weakness likely secondary to complex migraine. Given patient's complex medical history and being far from baseline, patient will require hospitalization for treatment and monitoring. Quality Stroke Does the patient have a stroke diagnosis?: No VTE Prior VTE?: No VTE Risk Level:: Medical - moderate - high VTE Device Contraindication: Treatment Not Indicated VTE Drug Contraindication: N/A - Med Ordered
[2023-07-03] MEDS: Metoclopramide HCl 10 MG/2 ML VIAL IM (13:47)
[2023-07-03 14:07] LABS: Glucose, Whole Blood 144 mg/dL (60-115)
--- NOTE | 2023-07-03 14:18 | PHA.MEDREC ---
Pharmacy Consult ? Medication Reconciliation Pharmacy has completed the medication reconciliation. Pt on way to MRI, spoke to patient's spouse to confirm meds.
--- NOTE | 2023-07-03 14:54 | PC.NURSE ---
This RN returned from MRI with patient, she was able to tolerate most of MRI, pt was incon of urine/vomit, hygiene care provided upon arrival back to unit, pt placed back onto monitor
--- NOTE | 2023-07-03 15:31 | PC.NURSE ---
delay in meds due to no IV access initially and pt at MRI for long period. pharmacy called for meds due to not being available in [facility].
[2023-07-03] MEDS: methylPREDNISolone Sod Succ 500 MG in 0.9 % Sodium Chloride 50 ML 50 MG IV (17:27)
[2023-07-03] MEDS: 0.9 % Sodium Chloride Flush 3 ML SYRINGE IVFLUSH (17:27)
[2023-07-03] MEDS: Enoxaparin Sodium 40 MG/0.4 ML SYRINGE SUBCUT (18:32)
--- NOTE | 2023-07-03 18:37 | PC.NURSE ---
pt noted to be tachy on bedside monitor, 110s, sinus tach. rectal temp assessed due to pt feeling warm, 103.2F. pt noted to still be lethargic. admitting PA notified.
[2023-07-03] MEDS: Acetaminophen Supp 650 MG SUPP.RECT PR (19:55)
[2023-07-03] MEDS: cefTRIAXone sodium 1 GM in 0.9 % Sodium Chloride 50 ML IV (20:08)
[2023-07-03 20:33] LABS: Glucose, Whole Blood 217 mg/dL (60-115)
[2023-07-03] MEDS: vancomycin/NS 2,000 MG/500 ML PLAST..BAG 250 MG IV (20:48)
[2023-07-03 21:20] LABS: Lactic Acid 2.8 mmol/L (0.5-2.0)
[2023-07-03 21:45] LABS: Erythrocyte Sedimentation Rate 22 MM/HR (0-20)
[2023-07-03] MEDS: 0.9 % Sodium Chloride 1,000 ML 999 ML IV (21:58)
[2023-07-03] MEDS: Ketorolac Tromethamine 15 MG/ML VIAL IVPUSH (22:34)
[2023-07-03] MEDS: Insulin Glargine,Hum.rec.anlog 100 UNIT/ML 10 ML VIAL 20 UNIT SUBCUT (22:36)
[2023-07-03] MEDS: Insulin Lispro 100 UNIT/ML 3 ML VIAL SUBCUT (22:37)
[2023-07-03 22:56] LABS: Reflex Lactate? Lactic Acid Added
[2023-07-04] VITALS (9 sets, daily range): BP systolic 117–152; BP diastolic 64–71; PULSE 70–96; RESP 18–22; TEMP 36.4–38.4; O2SAT 94–99
[2023-07-04 00:33] LABS: Appearance Urine Clear; Color Urine Yellow; Glucose Urine UA 500 mg/dL (Negative); Leukocyte Esterase Urine Negative (Negative); Nitrite Urine Negative (Negative); UMIC TRIGGER UACC YES; Urine Blood Negative (Negative); Urine Ketones Trace mg/dL (Negative); Urine Protein 30 (1+) mg/dL (Neg-Trace)
[2023-07-04 00:40] LABS: Bacteria Urine None Seen (None Seen); Hyaline Casts Urine 0-2 /LPF (0-2); RBC Urine 0-2 /HPF (0-2); Squamous Epithelial Cell Urine 0-2 /HPF (0-2); WBC Urine 0-5 /HPF (0-5)
[2023-07-04] MEDS: 0.9 % Sodium Chloride 1,000 ML 999 ML IV (00:46)
[2023-07-04 01:59] LABS: Reflex Lactate? 2 Y
[2023-07-04 02:45] LABS: ~Lactic Acid-LAB USE ONLY 2.3 mmol/L (0.5-2.0)
[2023-07-04] MEDS: 0.9 % Sodium Chloride 1,000 ML 125 ML IVCONT ×3 (03:30→19:43)
[2023-07-04 04:17] LABS: ~Lactic Acid-LAB USE ONLY 2.8 mmol/L (0.5-2.0)
[2023-07-04] MEDS: Acetaminophen Supp 650 MG SUPP.RECT PR ×2 (04:23→16:01)
[2023-07-04 06:26] LABS: Glucose, Whole Blood 308 mg/dL (60-115)
[2023-07-04 06:26] LABS: Hematocrit 36.6 % (37.0-47.0); Hemoglobin 12.7 g/dl (12.0-16.0); Mean Corpuscular HGB Conc 34.7 g/dl (31.0-35.0); Mean Corpuscular Hemoglobin 30.3 pg (27.0-33.0); Mean Corpuscular Volume 87.4 fL (80.0-98.0); Mean Platelet Volume 12.1 fL (9.4-12.3); Platelet Count 245 X10*3/uL (160-400); Red Blood Count 4.19 X10*6/uL (4.20-5.50); Red Cell Distribution Width 12.7 % (11.0-16.0); White Blood Count 13.4 X10*3/uL (4.8-10.8)
[2023-07-04 06:39] LABS: Anion Gap 17 (12-20); Blood Urea Nitrogen 21 mg/dL (9-16); Calcium 8.5 mg/dL (8.4-10.2); Carbon Dioxide 20 mmol/L (22-29); Chloride 104 mmol/L (96-108); Creatinine Clr Calc Pharmacy 66.8; Estimated Glomerular Filt Rate 54; Glucose Random 327 mg/dL (60-115); Potassium 3.5 mmol/L (3.3-5.1); Sodium 137 mmol/L (135-145)
[2023-07-04 07:57] LABS: Glucose, Whole Blood 310 mg/dL (60-115)
[2023-07-04] MEDS: Insulin Lispro 100 UNIT/ML 3 ML VIAL SUBCUT ×3 (08:19→16:18)
[2023-07-04] MEDS: 0.9 % Sodium Chloride Flush 3 ML SYRINGE IVFLUSH ×4 (08:20→23:54)
[2023-07-04 12:28] LABS: Glucose, Whole Blood 301 mg/dL (60-115)
--- NOTE | 2023-07-04 12:38 | P.PNIM_ITS ---
Subjective Subjective Date of Service: 07/04/23 Interval History: Opens eyes to verbal stimuli otherwise somnolent. states this is exactly similar to past episodes Review of Systems Unable to obtain Physical Exam 2 Vital Signs: Vital Signs: Last Vital Signs Temp 98.7 F 07/04/23 11:31 Pulse 83 07/04/23 11:31 Resp 20 07/04/23 11:31 BP 152/65 H 07/04/23 11:31 Pulse Ox 94 07/04/23 11:31 O2 Del Method Room Air 07/04/23 11:31 BMI result Body Mass Index 41.8 Const: Other: Somnolent but arousable to stimuli Resp: Other: Clear to auscultation bilaterally no rales rhonchi or wheezes Cardio: Other: No S4; positive S1-S2; no S3 murmurs rubs or gallops GI: Other: Soft nontender nondistended normoactive bowel sounds Neuro: Other: Obtunded; moves extremities will open eyes to verbal cues Extrem: Other: No edema bilaterally Objective Data Active Medications Acetaminophen (Acetaminophen Supp 650 Mg Supp.Rect) [address] Q6H PRN PRN Reason: Fever Last Admin: 07/04/23 04:23 Dose: 650 mg Documented By: MEHRDAD Aspirin (Aspirin Enteric Coated 81 Mg Tablet.Dr) 81 mg PO DAILY [facility] Last Admin: 07/04/23 08:21 Dose: Not Given Documented By: SABAS Non-Admin Reason: lethargic/ inability to swallow Atorvastatin Calcium (Atorvastatin Calcium 10 Mg Tablet) 10 mg PO BEDTIME [facility] Last Admin: 07/03/23 22:11 Dose: Not Given Documented By: MEHRDAD Non-Admin Reason: per PA patient drowsy Benzonatate (Benzonatate 100 Mg Capsule) 100 mg PO TID PRN PRN Reason: Cough Clonidine HCl (Clonidine Hcl 0.1 Mg Tablet) 0.1 mg PO TID [facility]; Protocol Last Admin: 07/04/23 08:21 Dose: Not Given Documented By: SABAS Non-Admin Reason: lethargic/ inability to swallow Dextrose (Dextrose 50 % 25 Gm/50 Ml Syringe) 25 gm IVPUSH Q15M PRN; Protocol PRN Reason: per Hypoglycemia Standing Ord. Docusate Sodium (Docusate Sodium 100 Mg Capsule) 100 mg PO DAILY PRN PRN Reason: Constipation Enoxaparin Sodium (Enoxaparin Sodium 40 Mg/0.4 Ml Syringe) 40 mg SUBCUT Q24H [facility] Last Admin: 07/03/23 18:32 Dose: 40 mg Documented By: NITIN Glucose (Glucose Gel 15 Gm Gel..Gram.) 15 gm PO Q15M PRN; Protocol PRN Reason: per Hypoglycemia Standing Ord. Ceftriaxone Sodium 1 gm/ (Sodium Chloride) 50 mls @ 100 mls/hr IV Q24H [facility] Last Infusion: 07/03/23 21:21 Dose: Infused Documented By: MEHRDAD Vancomycin HCl 1,250 mg/ (Sodium Chloride) 250 mls @ 166.667 mls/hr IV Q24H [facility] Sodium Chloride (Ns) 1,000 mls @ 125 mls/hr IVCONT .Q8H [facility] Last Admin: 07/04/23 12:35 Dose: 125 mls/hr Documented By: SABAS Insulin Glargine (Insulin Glargine,Hum.Rec.Anlog 100 Unit/Ml 10 Ml Vial) 37 unit SUBCUT BEDTIME [facility] Last Admin: 07/03/23 22:39 Dose: Not Given Documented By: MEHRDAD Non-Admin Reason: per PA Insulin Glargine (Insulin Glargine,Hum.Rec.Anlog 100 Unit/Ml 10 Ml Vial) 37 unit SUBCUT DAILY [facility] Last Admin: 07/04/23 08:22 Dose: Not Given Documented By: SABAS Non-Admin Reason: Physician Held Med Insulin Human Lispro (Insulin Lispro 100 Unit/Ml 3 Ml Vial) 0 unit SUBCUT QIDACHS [facility]; Protocol Last Admin: 07/04/23 12:34 Dose: 8 unit Documented By: SABAS Levothyroxine Sodium (Levothyroxine Sodium 125 Mcg Tablet) 125 mcg PO DAILY@0600 [facility] Last Admin: 07/04/23 05:32 Dose: Not Given Documented By: MEHRDAD Non-Admin Reason: pt too drowsy Ondansetron HCl (Ondansetron Hcl 4 Mg/2 Ml Vial) 4 mg IVPUSH Q8H PRN PRN Reason: Nausea and Vomiting Pharmacy Consult (Consult Rx Vancomycin Dosing) 1 each MISCELLANE DAILY PRN PRN Reason: Consult order Sodium Chloride (0.9 % Sodium Chloride Flush 3 Ml Syringe) [facility] Admin: 07/04/23 08:20 Dose: 3 ml Documented By: SABAS Sodium Chloride (0.9 % Sodium Chloride Flush 3 Ml Syringe) [facility] Last Admin: 07/04/23 08:21 Dose: Not Given Documented By: SABAS Non-Admin Reason: IV Running Venlafaxine HCl (Venlafaxine Hcl Er 37.5 Mg Cap.Er.24h) 37.5 mg PO DAILY [facility] Last Admin: 07/04/23 08:22 Dose: Not Given Documented By: SABAS Non-Admin Reason: lethargic/ inability to swallow Vitamin D (Cholecalciferol (Vitamin D3) 25 Mcg Tablet) 25 mcg PO DAILY [facility] Last Admin: 07/04/23 08:21 Dose: Not Given Documented By: SABAS Non-Admin Reason: lethargic/ inability to swallow Labs 07/04/23 05:45 07/04/23 05:45 Labs: Laboratory Results - last 24 hr 07/03/23 07/03/23 07/03/23 14:00 20:29 20:38 MCV MCH MCHC RDW Plt Count MPV Absolute Nucleated RBC Nucleated RBC % (auto) ESR 22 H Anion Gap Estim Creat Clear Calc Estimated GFR POC Glucose 144 H 217 H Random Glucose Lactic Acid 2.8 H* Lactic Acid F/U @ 2Hr Lactic Acid F/U @ 4Hr Calcium Hold Red Top See Note Hold Green Top See Note Urine Color Urine Appearance Urine pH Ur Specific [place] Urine Protein Urine Glucose (UA) Urine Ketones Urine Blood Urine Nitrite Ur Leukocyte Esterase Urine RBC Urine WBC Ur Squamous Epith Cells Urine Bacteria Hyaline Casts 07/03/23 07/03/23 07/04/23 23:22 23:55 02:21 MCV MCH MCHC RDW Plt Count MPV Absolute Nucleated RBC Nucleated RBC % (auto) ESR Anion Gap Estim Creat Clear Calc Estimated GFR POC Glucose Random Glucose Lactic Acid Lactic Acid F/U @ 2Hr 2.8 H* Lactic Acid F/U @ 4Hr 2.3 H* Calcium Hold Red Top Hold Green Top Urine Color Yellow Urine Appearance Clear Urine pH 5.0 Ur Specific [place] 1.020 Urine Protein 30 (1+) H Urine Glucose (UA) 500 H Urine Ketones Trace Urine Blood Negative Urine Nitrite Negative Ur Leukocyte Esterase Negative Urine RBC 0-2 Urine WBC 0-5 Ur Squamous Epith Cells 0-2 Urine Bacteria None Seen Hyaline Casts 0-2 07/04/23 07/04/23 07/04/23 05:45 06:22 07:39 MCV 87.4 MCH 30.3 MCHC 34.7 RDW 12.7 Plt Count 245 MPV 12.1 Absolute Nucleated RBC 0.000 Nucleated RBC % (auto) 0.0 ESR Anion Gap 17 Estim Creat Clear Calc 66.8 Estimated GFR 54 POC Glucose 308 H 310 H Random Glucose 327 H Lactic Acid Lactic Acid F/U @ 2Hr Lactic Acid F/U @ 4Hr Calcium 8.5 D Hold Red Top Hold Green Top Urine Color Urine Appearance Urine pH Ur Specific [place] Urine Protein Urine Glucose (UA) Urine Ketones Urine Blood Urine Nitrite Ur Leukocyte Esterase Urine RBC Urine WBC Ur Squamous Epith Cells Urine Bacteria Hyaline Casts 07/04/23 11:35 MCV MCH MCHC RDW Plt Count MPV Absolute Nucleated RBC Nucleated RBC % (auto) ESR Anion Gap Estim Creat Clear Calc Estimated GFR POC Glucose 301 H Random Glucose Lactic Acid Lactic Acid F/U @ 2Hr Lactic Acid F/U @ 4Hr Calcium Hold Red Top Hold Green Top Urine Color Urine Appearance Urine pH Ur Specific [place] Urine Protein Urine Glucose (UA) Urine Ketones Urine Blood Urine Nitrite Ur Leukocyte Esterase Urine RBC Urine WBC Ur Squamous Epith Cells Urine Bacteria Hyaline Casts Assessment and Plan (1) Type 2 diabetes mellitus: Status: Acute (2) CKD (chronic kidney disease) stage 2, GFR 60-89 ml/min: Status: Acute Plan Pt is a 72-year-old female with a PMH significant for?complex migraines, insulin-dependent type 2 diabetes with neuropathy, HLD, and hypothyroidism who presents to the ED for evaluation of sudden-onset left sided upper and lower extremity weakness. Pt will be admitted to the hospital for further treatment and workup for left-sided weakness in the setting of likely complex migraine. 1.Complex migraine (recurrent; workup negative) -discussed with ; this is classic presentation 2-3 days of somnolence then wakes up -we will continue current therapies; further treatment based on clinical presentation 2.Insulin-dependent diabetes type 2 -acceptable control on current therapy -insulin adjusted based on no oral intake -lispro correctional scale 3. CKD 3 -follow renals/divalents DNR/DNI Lovenox Requires ongoing hospitalization given unresponsive state secondary to complex migraine Quality Stroke Does the patient have a stroke diagnosis?: No VTE Prior VTE?: No VTE Risk Level:: Medical - moderate - high VTE Device Contraindication: Treatment Not Indicated VTE Drug Contraindication: N/A - Med Ordered
--- NOTE | 2023-07-04 14:02 | MHC.CM.PN ---
CM MET WITH PTS , BETO, AT BEDSIDE HE REPORTS PT WENT TO [facility] AFTER HER LAST ADMISSION AND HAD [facility] ONCE SHE WENT HOME [facility] SHE DID NOT HAVE ANY SERVICES HE REPORTS SHE USES A CANE USUALLY, BUT HAS A WALKER FOR WHEN SHE IS NOT FEELING WELL SHE HAS A HCP ON FILE PCP: ALLIE PAEZ IMM DELIVERED DCP: HOME ? [facility] REPORTS THEY DO NOT HAVE ANY PREFERENCES FOR VNA OR STR HE WOULD LIKE TO WAIT AND SEE WHAT IS RECOMMENDED BEFORE DECIDING ON POTENTIAL REFERRALS HE WILL TRANSPORT IF SHE DCS HOME
[2023-07-04 14:05] LABS: Adenovirus PCR Not Detected (Not Detect.); Bordetella parapertussis PCR Not Detected (Not Detect.); Bordetella pertussis PCR Not Detected (Not Detect.); Chlamydia pneumoniae PCR Not Detected (Not Detect.); Coronavirus 229E PCR Not Detected (Not Detect.); Coronavirus HKU1 PCR Not Detected (Not Detect.); Coronavirus NL63 PCR Not Detected (Not Detect.); Coronavirus OC43 PCR Not Detected (Not Detect.); Human metapneumovirus PCR Not Detected (Not Detect.); Influenza A PCR Not Detected (Not Detect.); Influenza B PCR Not Detected (Not Detect.); Mycoplasma pneumoniae PCR Not Detected (Not Detect.); Parainfluenza 1 PCR Not Detected (Not Detect.); Parainfluenza 2 PCR Not Detected (Not Detect.); Parainfluenza 3 PCR Not Detected (Not Detect.); Parainfluenza 4 PCR Not Detected (Not Detect.); RSV PCR Not Detected (Not Detect.); Rhino/Enterovirus PCR Not Detected (Not Detect.)
[2023-07-04 14:34] LABS: SARS-CoV-2 PCR Not Detected (Not Detect.)
[2023-07-04] MEDS: Enoxaparin Sodium 40 MG/0.4 ML SYRINGE SUBCUT (16:17)
[2023-07-04 16:26] LABS: Glucose, Whole Blood 287 mg/dL (60-115)
[2023-07-04] MEDS: cefTRIAXone sodium 1 GM in 0.9 % Sodium Chloride 50 ML IV (19:42)
[2023-07-04 21:20] LABS: Glucose, Whole Blood 257 mg/dL (60-115)
[2023-07-04] MEDS: Insulin Glargine,Hum.rec.anlog 100 UNIT/ML 10 ML VIAL 37 UNIT SUBCUT (21:53)
[2023-07-04] MEDS: vancomycin HCL 1,250 MG in 0.9 % Sodium Chloride 250 ML 166.67 MG IV (21:55)
--- NOTE | 2023-07-04 23:39 | PC.NURSE ---
Oncoming Nurse updated about checking pt's blood sugar at midnight and let Provider know.
[2023-07-05] VITALS (7 sets, daily range): BP systolic 139–176; BP diastolic 58–74; PULSE 62–76; RESP 16–20; TEMP 36–38.4; O2SAT 95–97
[2023-07-05 00:21] LABS: Glucose, Whole Blood 270 mg/dL (60-115)
--- NOTE | 2023-07-05 02:30 | PC.NURSE ---
PT POC 270 AT 2400.REPORTED TO . STATES TO RECHECK IN 2 HOURS.RECHECKED AT [id number].REPORT[address] DR OLIVER. STATES TO COVER PER SLIDING SCALE.PT GIVEN 6 UNITS OF LISPRO PER MD ORDER/SLIDING SCALE.
[2023-07-05 02:47] LABS: Glucose, Whole Blood 283 mg/dL (60-115)
[2023-07-05] MEDS: Insulin Lispro 100 UNIT/ML 3 ML VIAL SUBCUT ×4 (02:55→16:13)
[2023-07-05] MEDS: 0.9 % Sodium Chloride 1,000 ML 125 ML IVCONT ×3 (05:06→23:08)
[2023-07-05 08:03] LABS: Glucose, Whole Blood 270 mg/dL (60-115)
[2023-07-05] MEDS: 0.9 % Sodium Chloride Flush 3 ML SYRINGE IVFLUSH ×2 (08:12→16:06)
[2023-07-05] MEDS: Insulin Glargine,Hum.rec.anlog 100 UNIT/ML 10 ML VIAL 37 UNIT SUBCUT ×2 (08:14→23:45)
[2023-07-05 09:54] LABS: Creatinine Clr Calc Pharmacy 68.9; Estimated Glomerular Filt Rate 55
--- NOTE | 2023-07-05 10:37 | MHC.CM.PN ---
Per ROUNDS discussion, Patient is not yet medically cleared for dc (IV Ceftriaxone & IV Vanco); Patient will benefit from a PT Eval to assist with mobility. CM will follow.
--- NOTE | 2023-07-05 10:39 | HO.PM.IMPN ---
Subjective Subjective Date of Service: 07/05/23 Interval History: Follow up encephalopathy Opens eyes to verbal stimuli otherwise somnolent. states this is exactly similar to past episodes Review of Systems Unable to obtain Physical Exam Vital Signs: Vital Signs: Last Vital Signs Temp 98.1 F 07/05/23 07:48 Pulse 76 07/05/23 07:48 Resp 18 07/05/23 07:48 BP 166/60 H 07/05/23 07:48 Pulse Ox 95 07/05/23 07:48 O2 Del Method Room Air 07/05/23 07:48 BMI result Body Mass Index 41.8 Appearing in no acute distress lung sounds are clear to auscultation heart regular rate rhythm, clear S1, S2 positive bowel sounds, abdomen is soft, nontender neuro patient is alert x3, no focal deficits Objective Data Active Medications Acetaminophen (Acetaminophen Supp 650 Mg Supp.Rect) 650 mg [place] Q6H PRN PRN Reason: Fever Last Admin: 07/04/23 16:01 Dose: 650 mg Documented By: SABAS Aspirin (Aspirin Enteric Coated 81 Mg Tablet.Dr) 81 mg PO DAILY [facility] Last Admin: 07/05/23 08:04 Dose: Not Given Documented By: SABAS Non-Admin Reason: Lethargic, inability to swallow Atorvastatin Calcium (Atorvastatin Calcium 10 Mg Tablet) 10 mg PO BEDTIME [facility] Last Admin: 07/04/23 19:50 Dose: Not Given Documented By: BLESSING Non-Admin Reason: lethargy Benzonatate (Benzonatate 100 Mg Capsule) 100 mg PO TID PRN PRN Reason: Cough Clonidine HCl (Clonidine Hcl 0.1 Mg Tablet) 0.1 mg PO TID [facility]; Protocol Last Admin: 07/05/23 08:05 Dose: Not Given Documented By: SABAS Non-Admin Reason: Lethargic, inability to swallow Dextrose (Dextrose 50 % 25 Gm/50 Ml Syringe) 25 gm IVPUSH Q15M PRN; Protocol PRN Reason: per Hypoglycemia Standing Ord. Docusate Sodium (Docusate Sodium 100 Mg Capsule) 100 mg PO DAILY PRN PRN Reason: Constipation Enoxaparin Sodium (Enoxaparin Sodium 40 Mg/0.4 Ml Syringe) 40 mg SUBCUT Q24H [facility] Last Admin: 07/04/23 16:17 Dose: 40 mg Documented By: SABAS Glucose (Glucose Gel 15 Gm Gel..Gram.) 15 gm PO Q15M PRN; Protocol PRN Reason: per Hypoglycemia Standing Ord. Ceftriaxone Sodium 1 gm/ (Sodium Chloride) 50 mls @ 100 mls/hr IV Q24H [facility] Last Infusion: 07/04/23 20:45 Dose: Infused Documented By: BLESSING Vancomycin HCl 1,250 mg/ (Sodium Chloride) 250 mls @ 166.667 mls/hr IV Q24H [facility] Last Infusion: 07/04/23 23:55 Dose: Infused Documented By: GINA Sodium Chloride (Ns) 1,000 mls @ 125 mls/hr IVCONT .Q8H [facility] Last Admin: 07/05/23 05:06 Dose: 125 mls/hr Documented By: GINA Insulin Glargine (Insulin Glargine,Hum.Rec.Anlog 100 Unit/Ml 10 Ml Vial) 37 unit SUBCUT BEDTIME [facility] Last Admin: 07/04/23 21:53 Dose: 37 unit Documented By: BLESSING Insulin Glargine (Insulin Glargine,Hum.Rec.Anlog 100 Unit/Ml 10 Ml Vial) 37 unit SUBCUT DAILY [facility] Last Admin: 07/05/23 08:14 Dose: 37 unit Documented By: SABAS Insulin Human Lispro (Insulin Lispro 100 Unit/Ml 3 Ml Vial) 0 unit SUBCUT QIDACHS [facility]; Protocol Last Admin: 07/05/23 08:13 Dose: 6 unit Documented By: SABAS Levothyroxine Sodium (Levothyroxine Sodium 125 Mcg Tablet) 125 mcg PO DAILY@0600 [facility] Last Admin: 07/05/23 05:07 Dose: Not Given Documented By: GINA Non-Admin Reason: unable to take PO Ondansetron HCl (Ondansetron Hcl 4 Mg/2 Ml Vial) 4 mg IVPUSH Q8H PRN PRN Reason: Nausea and Vomiting Pharmacy Consult (Consult Rx Vancomycin Dosing) 1 each MISCELLANE DAILY PRN PRN Reason: Consult order Sodium Chloride (0.9 % Sodium Chloride Flush 3 Ml Syringe) 3 ml IVFLUSH QSHIFT [facility] Last Admin: 07/05/23 08:12 Dose: 3 ml Documented By: SABAS Sodium Chloride (0.9 % Sodium Chloride Flush 3 Ml Syringe) 3 ml IVFLUSH QSHIFT [facility] Last Admin: 07/05/23 07:56 Dose: Not Given Documented By: SABAS Non-Admin Reason: IV Running Venlafaxine HCl (Venlafaxine Hcl Er 37.5 Mg Cap.Er.24h) 37.5 mg PO DAILY [facility] Last Admin: 07/05/23 08:05 Dose: Not Given Documented By: SABAS Non-Admin Reason: Lethargic, inability to swallow Vitamin D (Cholecalciferol (Vitamin D3) 25 Mcg Tablet) 25 mcg PO DAILY [facility] Last Admin: 07/05/23 08:04 Dose: Not Given Documented By: SABAS Non-Admin Reason: Lethargic, inability to swallow Labs 07/04/23 05:45 07/05/23 09:09 Labs: Laboratory Results - last 24 hr 07/03/23 07/04/23 07/04/23 23:55 11:35 12:20 Estim Creat Clear Calc Estimated GFR POC Glucose 301 H Respiratory Panel [place] Cancelled See Note Adenovirus (Rapid PCR) Cancelled Not Detected B.pert (TEM-PCR) Cancelled Not Detected B.parapertussis DNA PCR Cancelled Not Detected C. pneumoniae DNA (PCR) Cancelled Not Detected Coronavirus OC43 (PCR) Cancelled Not Detected Coronavirus HKU1 (PCR) Cancelled Not Detected Coronavirus 229E (PCR) Cancelled Not Detected Coronavirus NL63 (PCR) Cancelled Not Detected Human Metapneumovir PCR Cancelled Not Detected Influenza A (RT-PCR) Cancelled Not Detected Influenza B (RT-PCR) Cancelled Not Detected M. pneumoniae (PCR) Cancelled Not Detected Parainfluenza 1 (PCR) Cancelled Not Detected Parainfluenza 2 (PCR) Cancelled Not Detected Parainfluenza 3 (PCR) Cancelled Not Detected Parainfluenza 4 (PCR) Cancelled Not Detected RSV (PCR) Cancelled Not Detected Entero/Rhino (PCR) Cancelled Not Detected SARS-CoV-2 RNA (RT-PCR) Cancelled Not Detected 07/04/23 07/04/23 07/05/23 16:13 21:14 00:17 Estim Creat Clear Calc Estimated GFR POC Glucose 287 H 257 H 270 H Respiratory Panel [place] Adenovirus (Rapid PCR) B.pert (TEM-PCR) B.parapertussis DNA PCR C. pneumoniae DNA (PCR) Coronavirus OC43 (PCR) Coronavirus HKU1 (PCR) Coronavirus 229E (PCR) Coronavirus NL63 (PCR) Human Metapneumovir PCR Influenza A (RT-PCR) Influenza B (RT-PCR) M. pneumoniae (PCR) Parainfluenza 1 (PCR) Parainfluenza 2 (PCR) Parainfluenza 3 (PCR) Parainfluenza 4 (PCR) RSV (PCR) Entero/Rhino (PCR) SARS-CoV-2 RNA (RT-PCR) 07/05/23 07/05/23 07/05/23 02:43 07:53 09:09 Estim Creat Clear Calc 68.9 Estimated GFR 55 POC Glucose 283 H 270 H Respiratory Panel [place] Adenovirus (Rapid PCR) B.pert (TEM-PCR) B.parapertussis DNA PCR C. pneumoniae DNA (PCR) Coronavirus OC43 (PCR) Coronavirus HKU1 (PCR) Coronavirus 229E (PCR) Coronavirus NL63 (PCR) Human Metapneumovir PCR Influenza A (RT-PCR) Influenza B (RT-PCR) M. pneumoniae (PCR) Parainfluenza 1 (PCR) Parainfluenza 2 (PCR) Parainfluenza 3 (PCR) Parainfluenza 4 (PCR) RSV (PCR) Entero/Rhino (PCR) SARS-CoV-2 RNA (RT-PCR) Microbiology Microbiology Results: Microbiology 07/03/23 20:38 Blood Culture - Preliminary Blood - Venous No growth after 24 hours. 07/03/23 20:38 Blood Culture - Preliminary Blood - Venous No growth after 24 hours. Assessment and Plan (1) Type 2 diabetes mellitus: Status: Acute (2) CKD (chronic kidney disease) stage 2, GFR 60-89 ml/min: Status: Acute Plan Pt is a 72-year-old female with a PMH significant for?complex migraines, insulin-dependent type 2 diabetes with neuropathy, HLD, and hypothyroidism who presents to the ED for evaluation of sudden-onset left sided upper and lower extremity weakness. Pt will be admitted to the hospital for further treatment and workup for left-sided weakness in the setting of likely complex migraine. Complex migraine (recurrent; workup negative) discussed with ; this is classic presentation 2-3 days of somnolence then wakes up we will continue current therapies; further treatment based on clinical presentation monitor mental status Insulin-dependent diabetes type 2 with hyperglycemia ss, ada diet Lantus HTN clonidine when able to take po hydralazine IV for SBP>180 CKD 3 baseline Hypothyroidism continue levothyroxine when able to take po mental health continue home medications when able to take po HLD asa and statin when able to take po DNR/DNI Attending Dr. Montrell Núñez Requires ongoing hospitalization given unresponsive state secondary to complex migraine Quality Stroke Does the patient have a stroke diagnosis?: No VTE Prior VTE?: No VTE Risk Level:: Medical - moderate - high VTE Device Contraindication: Treatment Not Indicated VTE Drug Contraindication: N/A - Med Ordered
[2023-07-05 11:35] LABS: Glucose, Whole Blood 250 mg/dL (60-115)
[2023-07-05] MEDS: Acetaminophen Supp 650 MG SUPP.RECT PR (15:55)
[2023-07-05] MEDS: Enoxaparin Sodium 40 MG/0.4 ML SYRINGE SUBCUT (16:13)
[2023-07-05 16:26] LABS: Glucose, Whole Blood 185 mg/dL (60-115)
--- NOTE | 2023-07-05 16:31 | P.CNID_ITS ---
History of Present Illness Data of Consult Service Date: 07/05/23 Requesting physician: Lesa Nash Primary Care Provider: Bhakti Rodgers MD HPI Reason for consult: encephalopathy She presents with somnolence day of admission. I had seen her before 09/2022 with similar symptoms. She has no fever or chills at this time, Review of Systems 2 Review of Systems: Yes Unobtainable due to mental condition PMFSH Past Medical History Medical History Anxiety Migraine Obstructive sleep apnea Encephalitis Hypothyroid HTN (hypertension) HLD (hyperlipidemia) Diabetes Complicated migraine Family History Family History Mother Lung cancer Diabetes Depression Daughter Alcohol abuse Father FH: cholecystectomy Family history: reviewed and not pertinent Surgical History Surgical History Hx of left mastectomy Hx of cholecystectomy H/O section Social History Social History Household Members: Spouse Housing: Unknown / Unable to assess Do you presently have visiting nurse or other home services: No (just finished last week) Unable to assess alcohol history related to: Unable to respond Alcohol intake: never 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 Tobacco Use Status: Never used Tobacco Smoked in Last 30 Days: No e-Cigarette/Vaping Use: Never Used Second Hand Smoke Exposure: No Use of substances other than those prescribed or required for medical reasons: Unknown Currently Displaying Signs/Symptoms of Drug Intoxication Withdrawal: No Advance Directives: Yes Advance Directives on File: Yes Advance Directives Date on File: 09/28/22 Do you have thoughts of harming others: None Do you have a plan to hurt others: No Plan Nutrition Risks: Difficulty chewing and Difficulty swallowing Patient : No service: No Current occupational status: retired Meds Allergies Allergy/AdvReac Type Severity Reaction Status Date / Time Iodinated Contrast Media Allergy Severe SEDATION,TA Verified 07/03/23 10:00 [IVP DYE] CHYCARDIA azithromycin Allergy Unknown Hives Verified 07/03/23 10:00 erythromycin base Allergy Unknown HIVES Verified 07/03/23 10:00 [ERYTHROMYCIN BASE] metformin AdvReac Unknown Diarrhea Verified 07/03/23 10:00 Active Medications: Current Medications Acetaminophen (Acetaminophen Supp 650 Mg Supp.Rect) 650 mg [place] Q6H PRN PRN Reason: Fever Last Admin: 07/05/23 15:55 Dose: 650 mg Aspirin (Aspirin Enteric Coated 81 Mg Tablet.Dr) 81 mg PO DAILY [facility] Last Admin: 07/05/23 08:04 Dose: Not Given Atorvastatin Calcium (Atorvastatin Calcium 10 Mg Tablet) 10 mg PO BEDTIME [facility] Last Admin: 07/04/23 19:50 Dose: Not Given Benzonatate (Benzonatate 100 Mg Capsule) 100 mg PO TID PRN PRN Reason: Cough Clonidine HCl (Clonidine Hcl 0.1 Mg Tablet) 0.1 mg PO TID [facility]; Protocol Last Admin: 07/05/23 13:54 Dose: Not Given Dextrose (Dextrose 50 % 25 Gm/50 Ml Syringe) 25 gm IVPUSH Q15M PRN; Protocol PRN Reason: per Hypoglycemia Standing Ord. Docusate Sodium (Docusate Sodium 100 Mg Capsule) 100 mg PO DAILY PRN PRN Reason: Constipation Enoxaparin Sodium (Enoxaparin Sodium 40 Mg/0.4 Ml Syringe) 40 mg SUBCUT Q24H [facility] Last Admin: 07/05/23 16:13 Dose: 40 mg Glucose (Glucose Gel 15 Gm Gel..Gram.) 15 gm PO Q15M PRN; Protocol PRN Reason: per Hypoglycemia Standing Ord. Hydralazine HCl (Hydralazine Hcl 20 Mg/Ml Vial) 10 mg IVPUSH Q4H PRN; Protocol PRN Reason: SBP >180 Ceftriaxone Sodium 1 gm/ (Sodium Chloride) 50 mls @ 100 mls/hr IV Q24H [facility] Last Infusion: 07/04/23 20:45 Dose: Infused Vancomycin HCl 1,250 mg/ (Sodium Chloride) 250 mls @ 166.667 mls/hr IV Q24H [facility] Last Infusion: 07/04/23 23:55 Dose: Infused Sodium Chloride (Ns) 1,000 mls @ 125 mls/hr IVCONT .Q8H [facility] Last Admin: 07/05/23 12:00 Dose: 125 mls/hr Insulin Glargine (Insulin Glargine,Hum.Rec.Anlog 100 Unit/Ml 10 Ml Vial) 37 unit SUBCUT BEDTIME [facility] Last Admin: 07/04/23 21:53 Dose: 37 unit Insulin Glargine (Insulin Glargine,Hum.Rec.Anlog 100 Unit/Ml 10 Ml Vial) 37 unit SUBCUT DAILY [facility] Last Admin: 07/05/23 08:14 Dose: 37 unit Insulin Human Lispro (Insulin Lispro 100 Unit/Ml 3 Ml Vial) 0 unit SUBCUT QIDACHS [facility]; Protocol Last Admin: 07/05/23 16:13 Dose: 2 unit Levothyroxine Sodium (Levothyroxine Sodium 125 Mcg Tablet) 125 mcg PO DAILY@0600 [facility] Last Admin: 07/05/23 05:07 Dose: Not Given Ondansetron HCl (Ondansetron Hcl 4 Mg/2 Ml Vial) 4 mg IVPUSH Q8H PRN PRN Reason: Nausea and Vomiting Pharmacy Consult (Consult Rx Vancomycin Dosing) 1 each MISCELLANE DAILY PRN PRN Reason: Consult order Sodium Chloride (0.9 % Sodium Chloride Flush 3 Ml Syringe) 3 ml IVFLUSH [facility] Last Admin: 07/05/23 16:06 Dose: 3 ml Sodium Chloride (0.9 % Sodium Chloride Flush 3 Ml Syringe) 3 ml IVFLUSH [facility] Last Admin: 07/05/23 16:06 Dose: Not Given Venlafaxine HCl (Venlafaxine Hcl Er 37.5 Mg Cap.Er.24h) 37.5 mg PO DAILY [facility] Last Admin: 07/05/23 08:05 Dose: Not Given Vitamin D (Cholecalciferol (Vitamin D3) 25 Mcg Tablet) 25 mcg PO DAILY [facility] Last Admin: 07/05/23 08:04 Dose: Not Given Home Medications Medication Instructions Recorded Confirmed Last Taken Type blood sugar diagnostic (FreeStyle 09/28/22 06/10/23 Unknown History Lite Strips) clonidine HCl 0.1 mg tablet 0.1 mg PO TID 09/28/22 07/03/23 07/03/23 09:00 History gabapentin 300 mg capsule 300 mg PO BID@0900,1500 09/28/22 07/03/23 07/03/23 09:00 History insulin glargine 100 unit/mL (3 53 unit subcut BID 09/28/22 07/03/23 07/03/23 09:00 History mL) subcutaneous pen (Lantus Solostar U-100 Insulin) insulin lispro 100 unit/mL See Protocol subcut TID 09/28/22 07/03/23 07/03/23 09:00 History subcutaneous pen pen needle, diabetic 32 gauge x 09/28/22 06/10/23 Unknown History 05/13 (BD Ultra-Fine Micro Pen Needle) simvastatin 20 mg tablet 20 mg PO BEDTIME 09/28/22 07/03/23 07/02/23 History ubrogepant 100 mg tablet (Ubrelvy) 100 mg PO Q2H PRN Migraine Headache 09/28/22 07/03/23 Unknown History aspirin 81 mg tablet,delayed 81 mg PO DAILY 10/01/22 07/03/23 07/03/23 09:00 History release cholecalciferol (vitamin D3) 25 25 mcg PO DAILY 10/01/22 07/03/23 07/03/23 09:00 History mcg (1,000 unit) tablet melatonin 10 mg tablet 10 mg PO BEDTIME 10/01/22 07/03/23 07/02/23 History gabapentin 300 mg capsule 600 mg PO BEDTIME 04/14/23 07/03/23 07/02/23 History (Neurontin) levothyroxine 125 mcg tablet 125 mcg PO DAILY@0600 04/14/23 07/03/23 07/03/23 06:00 History fremanezumab-vfrm 225 mg/1.5 mL 225 mg subcut QMONTH 04/28/23 07/03/23 04/21/23 History subcutaneous auto-injector (Ajovy) venlafaxine 37.5 mg 37.5 mg PO DAILY 07/03/23 07/03/23 07/03/23 09:00 History capsule,extended release 24 hr Physical Exam 2 Vital Signs: Vital Signs: Last Vital Signs Temp 101.1 F H 07/05/23 15:50 Pulse 73 07/05/23 15:50 Resp 16 07/05/23 15:50 BP 153/61 H 07/05/23 15:50 Pulse Ox 96 07/05/23 15:50 O2 Del Method Room Air 07/05/23 11:13 BMI result Body Mass Index 41.8 Const: General: cooperative HEENT: Head: Yes normal to inspection Face and sinus: Yes normal facial exam Mouth: Normal oral and palatal mucosa present Teeth and gingiva: d entition normal Eyes: General: appearance normal, both eyes and all related structures P upils: Equal, round and reactive pupils present Resp: Effort & Inspection: normal respiratory effort Cardio: Rate: regular rate Rhythm: regular rhythm GI: Palpation (GI): Soft to palpation and nontender : General: Yes no CVA tenderness Back/Spine/Pelvis: Back: no CVA tenderness Skin: General skin exam: no rashes or lesions noted Neuro: General: moves all extremities Cranial nerves: Yes Equal, round and reactive pupils present Extrem: General: Yes normal to inspection Psych: Other: confused,somnolent Results Labs 07/04/23 05:45 07/05/23 09:09 Labs: BMP 07/05/23 09:09 Creatinine 0.99 Microbiology Microbiology Results: Microbiology 07/03/23 20:38 Blood - Venous Blood Culture - Preliminary No growth after 24 hours. 07/03/23 20:38 Blood - Venous Blood Culture - Preliminary No growth after 24 hours. Assessment and Plan (1) Migraine with aura: Status: Acute (2) Encephalopathy acute: Status: Acute No infectious causes seen at this time. No CSF seen Would stop Ceftriaxone and Vancomycin unless CSF shows meningitis or positive blood cultures.
[2023-07-05 20:08] LABS: Glucose, Whole Blood 127 mg/dL (60-115)
[2023-07-05 20:25] LABS: Vancomycin Random 6.7 mcg/mL (15-20)
--- NOTE | 2023-07-05 20:42 | HE.PHANOTE ---
RE: vanco Random on 07/05 came back at 6.7 mg/L. Changed dose to 1500mg Q24H and changed model to obese based on patient's BMI of 41.8. Predicted trough of 11.9 mg/L, AUC of 422 mg/L. Next level to be drawn after two doses 07/07
[2023-07-05] MEDS: cefTRIAXone sodium 1 GM in 0.9 % Sodium Chloride 50 ML IV (23:08)
[2023-07-05] MEDS: vancomycin HCL 1,500 MG in 0.9 % Sodium Chloride 500 ML 333.33 MG IV (23:47)
[2023-07-06] VITALS (7 sets, daily range): BP systolic 148–185; BP diastolic 63–75; PULSE 58–72; RESP 16–20; TEMP 36.2–37.1; O2SAT 95–97
[2023-07-06] MEDS: ondansetron HCL 4 MG/2 ML VIAL IVPUSH (06:14)
[2023-07-06 07:22] LABS: Glucose, Whole Blood 145 mg/dL (60-115)
[2023-07-06] MEDS: Venlafaxine HCl ER 37.5 MG CAP.ER.24H PO (08:42)
[2023-07-06] MEDS: 0.9 % Sodium Chloride Flush 3 ML SYRINGE IVFLUSH ×3 (08:42→16:00)
[2023-07-06] MEDS: Aspirin Enteric Coated 81 MG TABLET.DR PO (08:42)
[2023-07-06] MEDS: cloNIDine HCL 0.1 MG TABLET PO ×3 (08:42→20:08)
[2023-07-06] MEDS: Cholecalciferol (Vitamin D3) 25 MCG TABLET PO (08:42)
[2023-07-06] MEDS: Insulin Glargine,Hum.rec.anlog 100 UNIT/ML 10 ML VIAL 37 UNIT SUBCUT ×2 (08:43→22:41)
[2023-07-06 09:10] LABS: Creatinine Clr Calc Pharmacy 87.4; Estimated Glomerular Filt Rate > 60
--- NOTE | 2023-07-06 11:30 | P.PNIM_ITS ---
Subjective Subjective Date of Service: 07/06/23 Interval History: Follow up encephalopathy awake today and laughing states this is exactly similar to past episodes Review of Systems Unable to obtain Physical Exam 2 Vital Signs: Vital Signs: Last Vital Signs Temp 97.1 F 07/06/23 07:39 Pulse 58 07/06/23 07:39 Resp 16 07/06/23 07:39 BP 185/75 H 07/06/23 07:39 Pulse Ox 95 07/06/23 07:39 O2 Del Method Room Air 07/06/23 07:39 BMI result Body Mass Index 41.8 Appearing in no acute distress lung sounds are clear to auscultation heart regular rate rhythm, clear S1, S2 positive bowel sounds, abdomen is soft, nontender neuro patient is alert, confused Objective Data Active Medications Acetaminophen (Acetaminophen Supp 650 Mg Supp.Rect) 650 mg [place] Q6H PRN PRN Reason: Fever Last Admin: 07/05/23 15:55 Dose: 650 mg Documented By: SABAS Aspirin (Aspirin Enteric Coated 81 Mg Tablet.Dr) 81 mg PO DAILY [facility] Last Admin: 07/06/23 08:42 Dose: 81 mg Documented By: SABAS Atorvastatin Calcium (Atorvastatin Calcium 10 Mg Tablet) 10 mg PO BEDTIME [facility] Last Admin: 07/05/23 23:08 Dose: Not Given Documented By: SREEKANTH Non-Admin Reason: pt unable to swallow safely Benzonatate (Benzonatate 100 Mg Capsule) 100 mg PO TID PRN PRN Reason: Cough Clonidine HCl (Clonidine Hcl 0.1 Mg Tablet) 0.1 mg PO TID [facility]; Protocol Last Admin: 07/06/23 08:42 Dose: 0.1 mg Documented By: SABAS Dextrose (Dextrose 50 % 25 Gm/50 Ml Syringe) 25 gm IVPUSH Q15M PRN; Protocol PRN Reason: per Hypoglycemia Standing Ord. Docusate Sodium (Docusate Sodium 100 Mg Capsule) 100 mg PO DAILY PRN PRN Reason: Constipation Enoxaparin Sodium (Enoxaparin Sodium 40 Mg/0.4 Ml Syringe) 40 mg SUBCUT Q24H [facility] Last Admin: 07/05/23 16:13 Dose: 40 mg Documented By: SABAS Glucose (Glucose Gel 15 Gm Gel..Gram.) 15 gm PO Q15M PRN; Protocol PRN Reason: per Hypoglycemia Standing Ord. Hydralazine HCl (Hydralazine Hcl 20 Mg/Ml Vial) 10 mg IVPUSH Q4H PRN; Protocol PRN Reason: SBP >180 Ceftriaxone Sodium 1 gm/ (Sodium Chloride) 50 mls @ 100 mls/hr IV Q24H [facility] Last Infusion: 07/05/23 23:53 Dose: Infused Documented By: SREEKANTH Vancomycin HCl 1,500 mg/ (Sodium Chloride) 500 mls @ 333.333 mls/hr IV Q24H [facility] Last Infusion: 07/06/23 01:25 Dose: Infused Documented By: SREEKANTH Insulin Glargine (Insulin Glargine,Hum.Rec.Anlog 100 Unit/Ml 10 Ml Vial) 37 unit SUBCUT BEDTIME [facility] Last Admin: 07/05/23 23:45 Dose: 18 unit Documented By: SREEKANTH Comments: reduced dose per Dr. Villanueva, pt not able to swallow safely, has been NPO, POC's trending down. Insulin Glargine (Insulin Glargine,Hum.Rec.Anlog 100 Unit/Ml 10 Ml Vial) 37 unit SUBCUT DAILY [facility] Last Admin: 07/06/23 08:43 Dose: 37 unit Documented By: SABAS Insulin Human Lispro (Insulin Lispro 100 Unit/Ml 3 Ml Vial) 0 unit SUBCUT QIDACHS [facility]; Protocol Last Admin: 07/06/23 08:30 Dose: Not Given Documented By: SABAS Non-Admin Reason: poc= 145 Levothyroxine Sodium (Levothyroxine Sodium 125 Mcg Tablet) 125 mcg PO DAILY@0600 [facility] Last Admin: 07/06/23 06:19 Dose: Not Given Documented By: SREEKANTH Non-Admin Reason: pt vomiting Ondansetron HCl (Ondansetron Hcl 4 Mg/2 Ml Vial) 4 mg IVPUSH Q8H PRN PRN Reason: Nausea and Vomiting Last Admin: 07/06/23 06:14 Dose: 4 mg Documented By: SREEKANTH Pharmacy Consult (Consult Rx Vancomycin Dosing) 1 each MISCELLANE DAILY PRN PRN Reason: Consult order Sodium Chloride (0.9 % Sodium Chloride Flush 3 Ml Syringe) [facility] Last Admin: 07/06/23 08:42 Dose: 3 ml Documented By: SABAS Sodium Chloride (0.9 % Sodium Chloride Flush 3 Ml Syringe) 3 ml IVFLUSH QSHIFT [facility] Last Admin: 07/06/23 08:30 Dose: Not Given Documented By: SABAS Non-Admin Reason: IV Running Venlafaxine HCl (Venlafaxine Hcl Er 37.5 Mg Cap.Er.24h) 37.5 mg PO DAILY [facility] Last Admin: 07/06/23 08:42 Dose: 37.5 mg Documented By: SABAS Vitamin D (Cholecalciferol (Vitamin D3) 25 Mcg Tablet) 25 mcg PO DAILY [facility] Last Admin: 07/06/23 08:42 Dose: 25 mcg Documented By: SABAS Labs 07/04/23 05:45 07/06/23 08:23 Labs: Laboratory Results - last 24 hr 07/05/23 07/05/23 07/05/23 11:14 15:56 19:57 Hold Purple Top Estim Creat Clear Calc Estimated GFR POC Glucose 250 H 185 H Random Vancomycin 6.7 L 07/05/23 07/06/23 07/06/23 20:05 07:03 08:23 Hold Purple Top SEE NOTE Estim Creat Clear Calc 87.4 Estimated GFR > 60 POC Glucose 127 H 145 H Random Vancomycin Microbiology Microbiology Results: Microbiology 07/03/23 20:38 Blood Culture - Preliminary Blood - Venous No growth after 48 hours. 07/03/23 20:38 Blood Culture - Preliminary Blood - Venous No growth after 48 hours. Assessment and Plan (1) Type 2 diabetes mellitus: Status: Acute (2) CKD (chronic kidney disease) stage 2, GFR 60-89 ml/min: Status: Acute Plan Pt is a 72-year-old female with a PMH significant for?complex migraines, insulin-dependent type 2 diabetes with neuropathy, HLD, and hypothyroidism who presents to the ED for evaluation of sudden-onset left sided upper and lower extremity weakness. Pt will be admitted to the hospital for further treatment and workup for left-sided weakness in the setting of likely complex migraine. Complex migraine (recurrent; workup negative) with encephalopathy discussed with ; this is classic presentation 2-3 days of somnolence then wakes up now awake and laughing with staff PT consult pending monitor mental status Insulin-dependent diabetes type 2 with hyperglycemia ss, ada diet Lantus HTN clonidine hydralazine IV for SBP>180 CKD 3 baseline Hypothyroidism continue levothyroxine mental health continue home medications HLD asa and statin DNR/DNI Attending Dr. Montrell Núñez Requires ongoing hospitalization given unresponsive state secondary to complex migraine Quality Stroke Does the patient have a stroke diagnosis?: No VTE Prior VTE?: No VTE Risk Level:: Medical - moderate - high VTE Device Contraindication: Treatment Not Indicated VTE Drug Contraindication: N/A - Med Ordered
[2023-07-06 11:49] LABS: Glucose, Whole Blood 188 mg/dL (60-115)
[2023-07-06] MEDS: hydrALAZINE HCl 20 MG/ML VIAL 10 MG IVPUSH (11:50)
[2023-07-06] MEDS: Insulin Lispro 100 UNIT/ML 3 ML VIAL SUBCUT ×2 (11:50→17:56)
[2023-07-06 16:01] LABS: Glucose, Whole Blood 183 mg/dL (60-115)
[2023-07-06] MEDS: Enoxaparin Sodium 40 MG/0.4 ML SYRINGE SUBCUT (17:56)
[2023-07-06] MEDS: levoFLOXacin/D5W 500 MG/100 ML PIGGYBACK 100 MG IV (18:54)
[2023-07-06] MEDS: cefTRIAXone sodium 1 GM in 0.9 % Sodium Chloride 50 ML IV (19:55)
[2023-07-06] MEDS: Atorvastatin Calcium 10 MG TABLET PO (20:08)
[2023-07-06 20:55] LABS: Glucose, Whole Blood 173 mg/dL (60-115)
[2023-07-06] MEDS: vancomycin HCL 1,500 MG in 0.9 % Sodium Chloride 500 ML 333.33 MG IV (22:42)
[2023-07-07] MEDS: LORazepam 2 MG/ML VIAL 0.5 MG IVPUSH (00:55)
[2023-07-07] MEDS: 0.9 % Sodium Chloride Flush 3 ML SYRINGE IVFLUSH ×4 (00:57→17:08)
[2023-07-07 03:45] VITALS: BP 143/62; PULSE 68; RESP 20; TEMP 36.4; O2SAT 96
[2023-07-07 06:57] LABS: Hematocrit 35.5 % (37.0-47.0); Hemoglobin 12.4 g/dl (12.0-16.0); Mean Corpuscular HGB Conc 34.9 g/dl (31.0-35.0); Mean Corpuscular Hemoglobin 29.7 pg (27.0-33.0); Mean Corpuscular Volume 85.1 fL (80.0-98.0); Mean Platelet Volume 11.5 fL (9.4-12.3); Platelet Count 258 X10*3/uL (160-400); Red Blood Count 4.17 X10*6/uL (4.20-5.50); Red Cell Distribution Width 12.5 % (11.0-16.0); White Blood Count 13.7 X10*3/uL (4.8-10.8)
[2023-07-07 07:13] LABS: Anion Gap 15 (12-20); Blood Urea Nitrogen 16 mg/dL (9-16); Calcium 8.4 mg/dL (8.4-10.2); Carbon Dioxide 20 mmol/L (22-29); Chloride 108 mmol/L (96-108); Creatinine Clr Calc Pharmacy 77.4; Estimated Glomerular Filt Rate > 60; Glucose Random 115 mg/dL (60-115); Sodium 140 mmol/L (135-145)
[2023-07-07 07:28] VITALS: BP 128/61; PULSE 74; RESP 18; TEMP 36.1; O2SAT 96
[2023-07-07 07:48] LABS: Glucose, Whole Blood 128 mg/dL (60-115)
--- NOTE | 2023-07-07 07:58 | P.CDIM_ITS ---
PROVIDER RESPONSE TEXT: To clarify, the appropriate diagnosis supported by the clinical indicators: Metabolic QUERY TEXT: PHYSICIAN'S DOCUMENTATION REQUEST Date of Query: 07/06/2023 10:07 AM EST Patient Name: BRII BARTLETT Admit Date: 07/03/2023 Dear Lesa Nash, A review of the medical record indicates additional documentation may be needed. Please review below and update the documentation accordingly. Clinical Indicators: 07/03/23: somnolent and lethargic, arousable 07/05/23: ID note: Encephalopathy Based on the above, please further specify, in the Progress Notes, the known or suspected type of the documented encephalopathy: Metabolic Septic Toxic Toxic metabolic Hypertensive Anoxic Alcoholic Hepatic (reported as hepatic failure and needs further specificity as to acute, subacute, or chronic) Due to a specified condition (such as UTI, hyponatremia, CVA, etc.) Other (explain) Clinically unable to determine (explain) Thank you, Marti Phelps RN Use of terms such as suspected, likely, concern for, or probable (associated with a specific diagnosi s that is being evaluated, monitored, or treated as if it exists) are acceptable and can be coded in the inpatient se tting, when documented at the time of discharge. Please use your independent medical judgment in providing your response. THIS QUERY IS PART OF THE PERMANENT MEDICAL RECORD
[2023-07-07] MEDS: Cholecalciferol (Vitamin D3) 25 MCG TABLET PO (08:47)
[2023-07-07] MEDS: Venlafaxine HCl ER 37.5 MG CAP.ER.24H PO (08:47)
[2023-07-07] MEDS: Aspirin Enteric Coated 81 MG TABLET.DR PO (08:47)
[2023-07-07] MEDS: cloNIDine HCL 0.1 MG TABLET PO ×3 (08:47→20:57)
[2023-07-07] MEDS: Insulin Glargine,Hum.rec.anlog 100 UNIT/ML 10 ML VIAL 37 UNIT SUBCUT ×3 (08:47→10:34)
[2023-07-07 08:51] LABS: Creatinine Clr Calc Pharmacy 90.9; Estimated Glomerular Filt Rate > 60
[2023-07-07 09:06] VITALS: BP 128/61; PULSE 74; O2SAT 96
[2023-07-07 10:01] LABS: Glucose, Whole Blood 127 mg/dL (60-115)
--- NOTE | 2023-07-07 10:44 | P.DS_ITS ---
DS: Providers Provider Date of Service: 07/07/23 Date of admission: 07/03/23 15:35 Primary care physician: Bhakti Rodgers MD Consults: 07/03/23 15:42 Consult to Neurology Routine Consulting Provider: [facility] Reason for consultation: Complex migraine vs stroke Has provider been notified: Yes 07/03/23 20:09 Consult to Infectious Diseases Routine Consulting Provider: [facility] [place] Infectious Disease Reason for consultation: Headache, fever DS: Diagnosis Discharge Diagnosis (1) Type 2 diabetes mellitus: Status: Acute (2) CKD (chronic kidney disease) stage 2, GFR 60-89 ml/min: Status: Acute DS: Summary Hospital Course Hospital Course: History and physical as per admitting provider. Pt is a 72-year-old female with a PMH significant for?complex migraines, insulin-dependent type 2 diabetes with neuropathy, HLD, and hypothyroidism who presents to the ED for evaluation of sudden-onset left sided upper and lower extremity weakness. Patient is somnolent but arousable at time of interview and exam, but falling back asleep without fully answering questions and thus incapable of providing accurate HPI, which is instead obtained from chart and provider review and family who was at bedside. Patient was apparently writing out a check earlier this morning when she suddenly could not move the left side of her body. Did not experience any n ausea, vomiting, acute vision changes, difficulty speaking, or seizure-like activity. Soon after developed a severe headache and all-over body aches. states that patient has had similar presentations in the past for complex migraines that often look like a stroke. Reports patient can either have left-sided or right-sided or whole body weakness. Patient will often then have a rough next couple of days, including becoming altered and having vivid hallucinations. reports she will mostly just sleep for the next 2-3 days before recovering to baseline mentation. Pt has had extensive workup in the past for these episodes, including LP, 24 hour EEG, CT and MRI of head, all of which have been negative. ID has been consulted in the past who have ruled out infectious etiology. Today, Neurology was consulted and, given patient's history, elected to not give TNK. Advised to give 500 mg Solu-Medrol x1 dose as polymyalgia rheumatica/polymyositis was also on the differential. Pt was mildly hypertensive at 168/78 but vitals were otherwise WNL and labs were grossly unremarkable. CT head found no acute intracranial pathology but showed chronic white matter small-vessel ischemic changes. CTA of head and neck found question of 3 mm hyperdensity along dorsal aspect of right precentral gyrus with suggestion of adjacent mild hypodensity, can not exclude small hemorrhage with adjacent vasogenic edema. Pt then had an MRI of the brain which was negative for acute intracranial pathology. EKG demonstrated normal sinus rhythm with nonspecific ST abnormality. Pt was treated with aspirin, Ativan, morphine, Benadryl, and metoclopramide. Pt will be admitted to the hospital for further treatment and workup for left-sided weakness in the setting of likely complex migraine. 72-year-old woman treated for complex migraine with encephalopathy and hospital delirium. Patient had classic presentation as per of 2-3 days of somnolence. Day 3 patient woke up. Had several days of some confusion likely secondary to hospital delirium and ultimately and delirium and encephalopathy resolved. She has a history of malignant catatonia/complex migraine syndrome. Was seen by the psychiatric team who started her on low-dose Seroquel as needed and lorazepam as needed. She did have some episodes of hypokalemia likely from poor oral intake for few days, replaced and repleted. Patient was seen evaluated by Physical therapy who recommended short-term rehab but patient and her decided to take her home. She was hemodynamically stable and plan was for discharge home. Diabetes mellitus type 2. Continue medications Hypertension. Continue clonidine CKD stage 3 remained at baseline during hospitalization Hypothyroidism. Continue levothyroxine Mental health. Continue Effexor Hyperlipidemia. Continue statin Time Attestation Total time managing care of this patient today: 35 mintues. Discharge coordination time: Greater than 30 minutes Quality: Safe Use of Opioids Does Pt have an Active Cancer Diagnosis on the Problem List?: No Quality: Stroke Does the patient have a stroke diagnosis?: No Physical Exam Vital Signs: Vital Signs: Last Vital Signs Temp 96.9 F 07/07/23 07:28 Pulse 74 07/07/23 09:06 Resp 18 07/07/23 07:28 BP 128/61 07/07/23 09:06 Pulse Ox 96 07/07/23 09:06 O2 Del Method Room Air 07/07/23 07:28 BMI result Body Mass Index 41.8 Appearing in no acute distress head is normocephalic atraumatic eyes pupils are PERRLA sclera is anicteric mouth throat mucous membranes are intact and moist neck is supple no lymphadenopathy, no JVD noted lung sounds are clear to auscultation heart regular rate rhythm, clear S1, S2 positive bowel sounds, abdomen is soft, nontender neuro patient is alert x3, no focal deficits DS: Data Data Completed and Pending Completed studies during hospitalization [Text1]: Procedures Drainage of Spinal Canal, Percutaneous Approach, Diagnostic (09/28/22) Insertion of Infusion Device into Superior Vena Cava, Percutaneous Approach (04/28/23) Ultrasonography of Superior Vena Cava, Guidance (04/28/23) Labs on day of discharge: Laboratory Results - last 24 hr 07/06/23 07/06/23 07/06/23 11:45 15:50 20:50 WBC RBC Hgb Hct MCV MCH MCHC RDW Plt Count MPV Absolute Nucleated RBC Nucleated RBC % (auto) Sodium Potassium Chloride Carbon Dioxide Anion Gap BUN Creatinine Estim Creat Clear Calc Estimated GFR POC Glucose 188 H 183 H 173 H Random Glucose Calcium 07/07/23 07/07/23 07/07/23 06:18 07:33 08:25 WBC 13.7 H RBC 4.17 L Hgb 12.4 Hct 35.5 L MCV 85.1 MCH 29.7 MCHC 34.9 RDW 12.5 Plt Count 258 MPV 11.5 Absolute Nucleated RBC 0.000 Nucleated RBC % (auto) 0.0 Sodium 140 Potassium 3.0 L Chloride 108 Carbon Dioxide 20 L Anion Gap 15 BUN 16 Creatinine 0.88 0.75 Estim Creat Clear Calc 77.4 90.9 Estimated GFR > 60 > 60 POC Glucose 128 H Random Glucose 115 Calcium 8.4 07/07/23 09:56 WBC RBC Hgb Hct MCV MCH MCHC RDW Plt Count MPV Absolute Nucleated RBC Nucleated RBC % (auto) Sodium Potassium Chloride Carbon Dioxide Anion Gap BUN Creatinine Estim Creat Clear Calc Estimated GFR POC Glucose 127 H Random Glucose Calcium Preliminary micro results at discharge 07/03/23 20:38 Blood Culture - Preliminary Blood - Venous No growth after 48 hours. 07/03/23 20:38 Blood Culture - Preliminary Blood - Venous No growth after 48 hours. Discharge Plan Discharge Anticipated Discharge Date/Time: 07/07/23 10:41 Patient Disposition: Xfer Inpatient Rehab Fac Discharge Diagnosis: Migraine with aura Encephalopathy Referrals: Bhakti Rodgers MD [Primary Care Provider] - 1 Week Discharge Medications: Continued lorazepam [Ativan] 0.5 mg tablet 0.5 mg PO BID PRN (Reason: anxiety) Qty: 20 0RF venlafaxine 37.5 mg capsule,extended release 24hr 37.5 mg PO DAILY clonidine HCl 0.1 mg tablet 0.1 mg PO TID (DME) FreeStyle Lite Strips Strip 1 strip MISCELLANEOUS TID simvastatin 20 mg tablet 20 mg PO BEDTIME insulin lispro 100 unit/mL insulin pen See Protocol subcut TID Protocol: Insulin Correction Scale Less than or equal to 110 ---- Give (units): 0 111 to 150 Give (units): 33 151 to 200 Give (units): 37 201 to 250 Give (units): 41 251 to 300 Give (units): 43 301 to 350 Give (units): 45 Greater than 350 Give (units): 47 Call MD if Blood Glucose > : 400 Rx Instructions: inject subq 3x daily with meals per sliding scale 80-99 inject 31 units 100-149 inject 33 units 150-199 inject 37 units 200-249 inject 41 units 250-299 inject 43 units 300-349 inject 45 units 350-399 inject 47 units 400 and higher: inject 49 units and call insulin glargine [Lantus Solostar U-100 Insulin] 100 unit/mL (3 mL) insulin pen 53 unit subcut BID Rx Instructions: inject 50 units subq in the morning (8am) and 50 units at night (8pm) (DME) pen needle, diabetic [BD Ultra-Fine Micro Pen Needle] 32 gauge x 1/4 needle MISCELLANEOUS Ubrelvy 100 mg tablet 100 mg PO Q2H PRN (Reason: Migraine Headache) Rx Instructions: take at onset of migraine. MRX1 after 2 hours. Do not exceed 2 doses in 24 hours gabapentin 300 mg capsule 300 mg PO BID@0900,1500 Patient Comments: 8am and 2pm levothyroxine 125 mcg tablet 125 mcg PO DAILY@0600 aspirin 81 mg Tablet,Delayed Release (Dr/Ec) 81 mg PO DAILY cholecalciferol (vitamin D3) 25 mcg (1,000 unit) Tablet 25 mcg PO DAILY melatonin 10 mg Tablet 10 mg PO BEDTIME Ajovy Autoinjector 225 mg/1.5 mL auto-injector 225 mg subcut QMONTH Rx Instructions: administer 225mg sc q month gabapentin [Neurontin] 300 mg capsule 600 mg PO BEDTIME Discharge Orders: Discharge Order (Routine); Ordered 07/11/23 Ordered By: Lesa Nash Diet: Advance to usual diet Activity on Discharge: As tolerated Stand Alone Forms: Patient Portal Discharge page Care Plan Goals: Complete resolution of symptoms Health Concerns: Migraine with aura Encephalopathy Plan of Treatment: Follow-up with primary care provider as needed Take all medications as prescribed Assessment: See discharge summary Discharge Date/Time: 07/11/23 16:23
--- NOTE | 2023-07-07 10:52 | P.PNIM_ITS ---
Subjective Subjective Date of Service: 07/07/23 Interval History: Follow up encephalopathy awake today and laughing states this is exactly similar to past episodes Review of Systems Unable to obtain Physical Exam 2 Vital Signs: Vital Signs: Last Vital Signs Temp 96.9 F 07/07/23 07:28 Pulse 74 07/07/23 09:06 Resp 18 07/07/23 07:28 BP 128/61 07/07/23 09:06 Pulse Ox 96 07/07/23 09:06 O2 Del Method Room Air 07/07/23 07:28 BMI result Body Mass Index 41.8 Appearing in no acute distress lung sounds are clear to auscultation heart regular rate rhythm, clear S1, S2 positive bowel sounds, abdomen is soft, nontender neuro patient is alert x3, no focal deficits Objective Data Active Medications Acetaminophen (Acetaminophen Supp 650 Mg Supp.Rect) 650 mg IN Q6H PRN PRN Reason: Fever Last Admin: 07/05/23 15:55 Dose: 650 mg Documented By: SABAS Al Hydroxide/Mg Hydroxide (Magnesium Hydrox/Alum Hydrox 30 Ml Oral.Susp) 30 ml PO Q6H PRN PRN Reason: heart burn Aspirin (Aspirin Enteric Coated 81 Mg Tablet.Dr) 81 mg PO DAILY [facility] [place] Last Admin: 07/07/23 08:47 Dose: 81 mg Documented By: ABILIO Atorvastatin Calcium (Atorvastatin Calcium 10 Mg Tablet) 10 mg PO BEDTIME [facility] [place] Last Admin: 07/06/23 20:08 Dose: 10 mg Documented By: CONNIE Benzonatate (Benzonatate 100 Mg Capsule) 100 mg PO TID PRN PRN Reason: Cough Clonidine HCl (Clonidine Hcl 0.1 Mg Tablet) 0.1 mg PO TID [facility]; Protocol Last Admin: 07/07/23 08:47 Dose: 0.1 mg Documented By: ABILIO Dextrose (Dextrose 50 % 25 Gm/50 Ml Syringe) 25 gm IVPUSH Q15M PRN; Protocol PRN Reason: per Hypoglycemia Standing Ord. Docusate Sodium (Docusate Sodium 100 Mg Capsule) 100 mg PO DAILY PRN PRN Reason: Constipation Enoxaparin Sodium (Enoxaparin Sodium 40 Mg/0.4 Ml Syringe) 40 mg SUBCUT Q24H [facility] [place] Last Admin: 07/06/23 17:56 Dose: 40 mg Documented By: CONNIE Glucose (Glucose Gel 15 Gm Gel..Gram.) 15 gm PO Q15M PRN; Protocol PRN Reason: per Hypoglycemia Standing Ord. Hydralazine HCl (Hydralazine Hcl 20 Mg/Ml Vial) 10 mg IVPUSH Q4H PRN; Protocol PRN Reason: SBP >180 Last Admin: 07/06/23 11:50 Dose: 10 mg Documented By: SABAS Insulin Glargine (Insulin Glargine,Hum.Rec.Anlog 100 Unit/Ml 10 Ml Vial) 37 unit SUBCUT BEDTIME [facility] Last Admin: 07/07/23 09:52 Dose: 37 unit Documented By: SAM Insulin Glargine (Insulin Glargine,Hum.Rec.Anlog 100 Unit/Ml 10 Ml Vial) 37 unit SUBCUT DAILY [facility] Last Admin: 07/07/23 10:34 Dose: 37 unit Documented By: SAM Insulin Human Lispro (Insulin Lispro 100 Unit/Ml 3 Ml Vial) 0 unit SUBCUT QIDACHS [facility] [place]; Protocol Last Admin: 07/07/23 08:48 Dose: Not Given Documented By: ABILIO Non-Admin Reason: No Insulin Coverage Levothyroxine Sodium (Levothyroxine Sodium 125 Mcg Tablet) 125 mcg PO DAILY@0600 [facility] [place] Last Admin: 07/07/23 05:42 Dose: Not Given Documented By: KRISTAL Non-Admin Reason: Patient Refused Ondansetron HCl (Ondansetron Hcl 4 Mg/2 Ml Vial) 4 mg IVPUSH Q8H PRN PRN Reason: Nausea and Vomiting Last Admin: 07/06/23 06:14 Dose: 4 mg Documented By: SREEKANTH Pharmacy Consult (Consult Rx Vancomycin Dosing) 1 each MISCELLANE DAILY PRN PRN Reason: Consult order Potassium Chloride (Potassium Chloride Packet 20 Meq Packet) 40 meq PO ONCE ONE Stop: 07/07/23 10:51 Sodium Chloride (0.9 % Sodium Chloride Flush 3 Ml Syringe) 3 ml IVFLUSH [facility] Last Admin: 07/07/23 08:48 Dose: 3 ml Documented By: ABILIO Sodium Chloride (0.9 % Sodium Chloride Flush 3 Ml Syringe) 3 ml IVFLUSH [facility] Last Admin: 07/07/23 08:49 Dose: Not Given Documented By: ABILIO Non-Admin Reason: Duplicate Order Venlafaxine HCl (Venlafaxine Hcl Er 37.5 Mg Cap.Er.24h) 37.5 mg PO DAILY [facility] [place] Last Admin: 07/07/23 08:47 Dose: 37.5 mg Documented By: ABILIO Vitamin D (Cholecalciferol (Vitamin D3) 25 Mcg Tablet) 25 mcg PO DAILY [facility] [place] Last Admin: 07/07/23 08:47 Dose: 25 mcg Documented By: ABILIO Labs 07/07/23 06:18 07/07/23 08:25 Labs: Laboratory Results - last 24 hr 07/06/23 07/06/23 07/06/23 11:45 15:50 20:50 MCV MCH MCHC RDW Plt Count MPV Absolute Nucleated RBC Nucleated RBC % (auto) Anion Gap Estim Creat Clear Calc Estimated GFR POC Glucose 188 H 183 H 173 H Random Glucose Calcium 07/07/23 07/07/23 07/07/23 06:18 07:33 08:25 MCV 85.1 MCH 29.7 MCHC 34.9 RDW 12.5 Plt Count 258 MPV 11.5 Absolute Nucleated RBC 0.000 Nucleated RBC % (auto) 0.0 Anion Gap 15 Estim Creat Clear Calc 77.4 90.9 Estimated GFR > 60 > 60 POC Glucose 128 H Random Glucose 115 Calcium 8.4 07/07/23 09:56 MCV MCH MCHC RDW Plt Count MPV Absolute Nucleated RBC Nucleated RBC % (auto) Anion Gap Estim Creat Clear Calc Estimated GFR POC Glucose 127 H Random Glucose Calcium Assessment and Plan (1) Type 2 diabetes mellitus: Status: Acute (2) CKD (chronic kidney disease) stage 2, GFR 60-89 ml/min: Status: Acute Plan Pt is a 72-year-old female with a PMH significant for?complex migraines, insulin-dependent type 2 diabetes with neuropathy, HLD, and hypothyroidism who presents to the ED for evaluation of sudden-onset left sided upper and lower extremity weakness. Pt will be admitted to the hospital for further treatment and workup for left-sided weakness in the setting of likely complex migraine. Complex migraine with encephalopathy and hospital delirium classic presentation with 2-3 days of somnolence then wakes up now awake and laughing with staff PT consult>rec STR monitor mental status Insulin-dependent diabetes type 2 with hyperglycemia ss, ada diet Lantus HTN clonidine hydralazine IV for SBP>180 CKD 3 baseline Hypothyroidism continue levothyroxine Mental health continue home medications HLD asa and statin DNR/DNI Attending Dr. Montrell Núñez Requires ongoing hospitalization given treatment secondary to complex migraine Quality Stroke Does the patient have a stroke diagnosis?: No VTE Prior VTE?: No VTE Risk Level:: Medical - moderate - high VTE Device Contraindication: Treatment Not Indicated VTE Drug Contraindication: N/A - Med Ordered
--- NOTE | 2023-07-07 10:59 | MHC.CM.PN ---
Second IMM given 07/07 to pts HCP/ Joey, copy left at bedside per his request. Pt is medically cleared for D/C to STR per MD rounds. This CM met with pt to discuss and she is in agreement with going to [facility], although pt laughing throughout CM's discuss. This CM then called pts HCP/ Joey to discuss and he is very concerned stating his is hallucinating today and would like to speak with the hospitalist. Per hospitalist, pt can stay here one more day.
[2023-07-07 11:29] LABS: Glucose, Whole Blood 124 mg/dL (60-115)
[2023-07-07] MEDS: Potassium Chloride Packet 20 MEQ PACKET 40 MEQ PO (11:53)
[2023-07-07 15:28] VITALS: BP 154/66; PULSE 69; RESP 18; TEMP 37.3; O2SAT 97
[2023-07-07 16:52] LABS: Glucose, Whole Blood 120 mg/dL (60-115)
[2023-07-07 18:49] VITALS: BP 158/80; PULSE 88; RESP 16; TEMP 36.3; O2SAT 96
[2023-07-07 19:17] LABS: Glucose, Whole Blood 160 mg/dL (60-115)
[2023-07-07] MEDS: Enoxaparin Sodium 40 MG/0.4 ML SYRINGE SUBCUT (19:18)
[2023-07-07 20:31] LABS: Vancomycin Random 10.8 mcg/mL (15-20)
[2023-07-07] MEDS: Atorvastatin Calcium 10 MG TABLET PO (20:57)
[2023-07-07] MEDS: Potassium Chloride ER 20 MEQ TAB.ER.PRT PO (20:57)
[2023-07-07] MEDS: Insulin Lispro 100 UNIT/ML 3 ML VIAL SUBCUT (21:04)
[2023-07-08] MEDS: LORazepam 2 MG/ML VIAL 0.5 MG IVPUSH (03:32)
[2023-07-08] MEDS: 0.9 % Sodium Chloride Flush 3 ML SYRINGE IVFLUSH ×7 (03:33→21:58)
[2023-07-08 03:38] VITALS: BP 164/82; PULSE 70; RESP 18; TEMP 37.4; O2SAT 95
[2023-07-08 07:25] VITALS: BP 157/63; PULSE 88; RESP 18; TEMP 37
[2023-07-08 07:36] LABS: Glucose, Whole Blood 141 mg/dL (60-115)
[2023-07-08 08:25] LABS: Creatinine Clr Calc Pharmacy 79.3; Estimated Glomerular Filt Rate > 60
[2023-07-08] MEDS: Aspirin Enteric Coated 81 MG TABLET.DR PO (10:20)
[2023-07-08] MEDS: Insulin Glargine,Hum.rec.anlog 100 UNIT/ML 10 ML VIAL 37 UNIT SUBCUT ×2 (10:20→21:52)
[2023-07-08] MEDS: Venlafaxine HCl ER 37.5 MG CAP.ER.24H PO (10:20)
[2023-07-08] MEDS: Potassium Chloride ER 20 MEQ TAB.ER.PRT PO ×2 (10:21→21:52)
[2023-07-08] MEDS: cloNIDine HCL 0.1 MG TABLET PO ×3 (10:21→21:52)
[2023-07-08] MEDS: Cholecalciferol (Vitamin D3) 25 MCG TABLET PO (10:21)
[2023-07-08 11:09] LABS: Anion Gap 13 (12-20)
[2023-07-08 11:11] LABS: Blood Urea Nitrogen 11 mg/dL (9-16); Calcium 8.4 mg/dL (8.4-10.2); Carbon Dioxide 24 mmol/L (22-29); Chloride 106 mmol/L (96-108); Glucose Random 148 mg/dL (60-115); Potassium 3.1 mmol/L (3.3-5.1); Sodium 140 mmol/L (135-145)
[2023-07-08 11:30] LABS: Glucose, Whole Blood 209 mg/dL (60-115)
[2023-07-08] MEDS: Insulin Lispro 100 UNIT/ML 3 ML VIAL SUBCUT ×3 (12:14→21:52)
--- NOTE | 2023-07-08 13:34 | HO.PM.IMPN ---
Subjective Subjective Date of Service: 07/08/23 Interval History: seen and examined this morning follow up for encephalopathy remains confused, unable to provide full ROS Physical Exam Vital Signs: Vital Signs: Last Vital Signs Temp 98.6 F 07/08/23 07:25 Pulse 88 07/08/23 07:25 Resp 18 07/08/23 07:25 BP 157/63 H 07/08/23 07:25 Pulse Ox 95 07/08/23 03:38 O2 Del Method Room Air 07/08/23 03:38 BMI result Body Mass Index 41.8 Const: Other: easily arousable, confused, able to answer questions but does not answer all appropriately. thinks she is at home in bed Nutritional Appearance: obese Resp: Effort & Inspection: normal respiratory effort, able to speak in complete sentences, no respiratory distress and no use of accessory muscles Cardio: Rate: regular rate GI: Inspection: No distended Palpation (GI): Soft to palpation and nontender Neuro: Other: confused, moving all extremities, no deficits appreciated Extrem: General: Yes no pedal edema Objective Data Active Medications Acetaminophen (Acetaminophen Supp 650 Mg Supp.Rect) 650 mg MA Q6H PRN PRN Reason: Fever Last Admin: 07/05/23 15:55 Dose: 650 mg Documented By: SABAS Al Hydroxide/Mg Hydroxide (Magnesium Hydrox/Alum Hydrox 30 Ml Oral.Susp) 30 ml PO Q6H PRN PRN Reason: heart burn Aspirin (Aspirin Enteric Coated 81 Mg Tablet.Dr) 81 mg PO DAILY [facility] Last Admin: 07/08/23 10:20 Dose: 81 mg Documented By: JANELLE Atorvastatin Calcium (Atorvastatin Calcium 10 Mg Tablet) 10 mg PO BEDTIME [facility] Last Admin: 07/07/23 20:57 Dose: 10 mg Documented By: CONNIE Benzonatate (Benzonatate 100 Mg Capsule) 100 mg PO TID PRN PRN Reason: Cough Clonidine HCl (Clonidine Hcl 0.1 Mg Tablet) 0.1 mg PO TID [facility]; Protocol Last Admin: 07/08/23 10:21 Dose: 0.1 mg Documented By: JANELLE Dextrose (Dextrose 50 % 25 Gm/50 Ml Syringe) 25 gm IVPUSH Q15M PRN; Protocol PRN Reason: per Hypoglycemia Standing Ord. Docusate Sodium (Docusate Sodium 100 Mg Capsule) 100 mg PO DAILY PRN PRN Reason: Constipation Enoxaparin Sodium (Enoxaparin Sodium 40 Mg/0.4 Ml Syringe) 40 mg SUBCUT Q24H [facility] Last Admin: 07/07/23 19:18 Dose: 40 mg Documented By: CONNIE Glucose (Glucose Gel 15 Gm Gel..Gram.) 15 gm PO Q15M PRN; Protocol PRN Reason: per Hypoglycemia Standing Ord. Hydralazine HCl (Hydralazine Hcl 20 Mg/Ml Vial) 10 mg IVPUSH Q4H PRN; Protocol PRN Reason: SBP >180 Last Admin: 07/06/23 11:50 Dose: 10 mg Documented By: SABAS Insulin Glargine (Insulin Glargine,Hum.Rec.Anlog 100 Unit/Ml 10 Ml Vial) 37 unit SUBCUT BEDTIME [facility] Last Admin: 07/07/23 09:52 Dose: 37 unit Documented By: SAM Insulin Glargine (Insulin Glargine,Hum.Rec.Anlog 100 Unit/Ml 10 Ml Vial) 37 unit SUBCUT DAILY [facility] Last Admin: 07/08/23 10:20 Dose: 37 unit Documented By: JANELLE Insulin Human Lispro (Insulin Lispro 100 Unit/Ml 3 Ml Vial) 0 unit SUBCUT QIDACHS [facility]; Protocol Last Admin: 07/08/23 12:14 Dose: 4 unit Documented By: JANELLE Levothyroxine Sodium (Levothyroxine Sodium 125 Mcg Tablet) 125 mcg PO DAILY@0600 [facility] Last Admin: 07/08/23 06:08 Dose: Not Given Documented By: KRISTAL Non-Admin Reason: Patient Refused Ondansetron HCl (Ondansetron Hcl 4 Mg/2 Ml Vial) 4 mg IVPUSH Q8H PRN PRN Reason: Nausea and Vomiting Last Admin: 07/06/23 06:14 Dose: 4 mg Documented By: SREEKANTH Pharmacy Consult (Consult Rx Vancomycin Dosing) 1 each MISCELLANE DAILY PRN PRN Reason: Consult order Potassium Chloride (Potassium Chloride Er 20 Meq Tab.Er.Prt) 20 meq PO BID [facility] Last Admin: 07/08/23 10:21 Dose: 20 meq Documented By: JANELLE Sodium Chloride (0.9 % Sodium Chloride Flush 3 Ml Syringe) 3 ml IVFLUSH QSHIFT [facility] Last Admin: 07/08/23 10:19 Dose: 3 ml Documented By: JANELLE Sodium Chloride (0.9 % Sodium Chloride Flush 3 Ml Syringe) [facility] Last Admin: 07/08/23 10:19 Dose: 3 ml Documented By: JANELLE Venlafaxine HCl (Venlafaxine Hcl Er 37.5 Mg Cap.Er.24h) 37.5 mg PO DAILY [facility] Last Admin: 07/08/23 10:20 Dose: 37.5 mg Documented By: JANELLE Vitamin D (Cholecalciferol (Vitamin D3) 25 Mcg Tablet) 25 mcg PO DAILY [facility] Last Admin: 07/08/23 10:21 Dose: 25 mcg Documented By: JANELLE Labs 07/07/23 06:18 07/08/23 07:56 Labs: Laboratory Results - last 24 hr 07/07/23 07/07/23 07/07/23 15:36 19:14 19:51 Anion Gap Estim Creat Clear Calc Estimated GFR POC Glucose 120 H 160 H Random Glucose Calcium Random Vancomycin 10.8 L 07/08/23 07/08/23 07/08/23 07:30 07:56 11:22 Anion Gap 13 Estim Creat Clear Calc 79.3 Estimated GFR > 60 POC Glucose 141 H 209 H Random Glucose 148 H Calcium 8.4 Random Vancomycin Assessment and Plan (1) Headache: Status: Acute Plan Pt is a 72-year-old female with a PMH significant for?complex migraines, insulin-dependent type 2 diabetes with neuropathy, HLD, and hypothyroidism who presents to the ED for evaluation of sudden-onset left sided upper and lower extremity weakness. Pt will be admitted to the hospital for further treatment and workup for left-sided weakness in the setting of likely complex migraine. Complex migraine with encephalopathy and hospital delirium classic presentation with 2-3 days of somnolence then wakes up PT consult>rec STR multiple admissions here and at [facility] as well as [facility] with similar presentations that have been variously attributed to malignant catatonia or complex migraine syndrome (initial admission [facility] [place] 2017 - required ICU level of care, initially treated for meningitis/encephalitis, but ultimately was given a diagnosis of complex migraine by neurology july 2020 - admit with left side weakness and facial droop. stroke fuled out, symptoms resolved; treated for aspiration pneumonia and complex migraine september 2022 - admit with AMS, fever; LP done, negative meningoencephalitis panel. Lyme negative, HIV negative, t pallidum negative april 2023 - AMS, fever - rec cyclovir; was treated with abx, LP - declined by family; seen by psych for agitation, treated with seroquel) on this admission -afebrile since 07/05, mental status seems to be improving although continues to be intermittently confused. if symptoms worsen neuro rec to repeat LP although has not wanted in recent past and consider prednisone for possible autoimmune encephalitis ativan and gabapentin has been on hold due to lethargy asking to resume ulbrelvy as this reportedly helps her calm down and assists with her headaches hypokalemia replace and follow BMP Insulin-dependent diabetes type 2 with hyperglycemia ss, ada diet Lantus HTN clonidine hydralazine IV for SBP>180 CKD 3 baseline Hypothyroidism continue levothyroxine Mental health continue Effexor HLD continue statin DNR/DNI Attending Dr. Montrell Núñez Requires ongoing hospitalization given treatment secondary to complex migraine Quality Stroke Does the patient have a stroke diagnosis?: No VTE Prior VTE?: No VTE Risk Level:: Medical - moderate - high VTE Device Contraindication: Treatment Not Indicated VTE Drug Contraindication: N/A - Med Ordered
--- NOTE | 2023-07-08 15:53 | PM.PSYCN ---
History of Present Illness Date of Service: 07/08/23 Chief Complaint: Complex migraine Reason for Consult: agitation, confusion Requesting physician: Padmini Martins Discussed with referring provider: Yes Sources of Information: patient interviewed and chart reviewed HPI Narrative: Pt is a 72-year-old female with a PMH significant for complex migraines, insulin-dependent type 2 diabetes with neuropathy, HLD, and hypothyroidism who presents to the ED for evaluation of sudden-onset left sided upper and lower extremity weakness. Pt will be admitted to the hospital for further treatment and workup for left-sided weakness in the setting of likely complex migraine. psychiatric consult placed for: agitation, confusion During consult assessment, patient presents disheveled with irritable edge. Patient oriented to self and time, not to place or situation. Patient stated, I'm in my house in [place]. We're not in the hospital! I don't know what you're doing in my house. You favor your youngest daughter. I'm 72 but I'm okay . Patient unable to have a coherent/logical conversation. Patient appeared to become more agitated as the conversation continued. Medical Evaluation Reviewed: Yes Review of Systems Review of Systems Yes Unobtainable due to mental status COUNT INCLUDES [facility] Medical History Anxiety Migraine Obstructive sleep apnea Encephalitis Hypothyroid HTN (hypertension) HLD (hyperlipidemia) Diabetes Complicated migraine Surgical History Hx of left mastectomy Hx of cholecystectomy H/O section Family History: unknown Social History: unknown Substance History: unknown Trauma History: unknown Diagnostics Vital Signs (24Hr): Vital Signs - 24 hr 07/07/23 18:49 07/08/23 03:38 07/08/23 07:25 Temperature 97.3 F 99.3 F 98.6 F Pulse Rate 88 70 88 Respiratory Rate 16 18 18 Blood Pressure 158/80 H 164/82 H 157/63 H Pulse Oximetry 96 95 Oxygen Delivery Method Room Air Room Air BMI result Body Mass Index 41.8 Labs 07/07/23 06:18 07/08/23 07:56 Labs: Laboratory Results - last 48 hr 07/06/23 07/06/23 07/07/23 15:50 20:50 06:18 WBC 13.7 H RBC 4.17 L Hgb 12.4 Hct 35.5 L MCV 85.1 MCH 29.7 MCHC 34.9 RDW 12.5 Plt Count 258 MPV 11.5 Absolute Nucleated RBC 0.000 Nucleated RBC % (auto) 0.0 Sodium 140 Potassium 3.0 L Chloride 108 Carbon Dioxide 20 L Anion Gap 15 BUN 16 Creatinine 0.88 Estim Creat Clear Calc 77.4 Estimated GFR > 60 POC Glucose 183 H 173 H Random Glucose 115 Calcium 8.4 Random Vancomycin 07/07/23 07/07/23 07/07/23 07:33 08:25 09:56 WBC RBC Hgb Hct MCV MCH MCHC RDW Plt Count MPV Absolute Nucleated RBC Nucleated RBC % (auto) Sodium Potassium Chloride Carbon Dioxide Anion Gap BUN Creatinine 0.75 Estim Creat Clear Calc 90.9 Estimated GFR > 60 POC Glucose 128 H 127 H Random Glucose Calcium Random Vancomycin 07/07/23 07/07/23 07/07/23 11:26 15:36 19:14 WBC RBC Hgb Hct MCV MCH MCHC RDW Plt Count MPV Absolute Nucleated RBC Nucleated RBC % (auto) Sodium Potassium Chloride Carbon Dioxide Anion Gap BUN Creatinine Estim Creat Clear Calc Estimated GFR POC Glucose 124 H 120 H 160 H Random Glucose Calcium Random Vancomycin 07/07/23 07/08/23 07/08/23 19:51 07:30 07:56 WBC RBC Hgb Hct MCV MCH MCHC RDW Plt Count MPV Absolute Nucleated RBC Nucleated RBC % (auto) Sodium 140 Potassium 3.1 L Chloride 106 Carbon Dioxide 24 Anion Gap 13 BUN 11 Creatinine 0.86 Estim Creat Clear Calc 79.3 Estimated GFR > 60 POC Glucose 141 H Random Glucose 148 H Calcium 8.4 Random Vancomycin 10.8 L 07/08/23 11:22 WBC RBC Hgb Hct MCV MCH MCHC RDW Plt Count MPV Absolute Nucleated RBC Nucleated RBC % (auto) Sodium Potassium Chloride Carbon Dioxide Anion Gap BUN Creatinine Estim Creat Clear Calc Estimated GFR POC Glucose 209 H Random Glucose Calcium Random Vancomycin Imaging Radiology Impressions: ITS Impressions Head CT 07/03/23 09:40 IMPRESSION: 1. No acute intracranial pathology. 2. Chronic white matter small vessel ischemic changes. This critical result was discussed with Juliana MORE by telephone on 07/03/2023 9:59 AM and it was ascertained that the content and urgency of the report was understood at the time of direct communication. Head/Neck CTA 07/03/23 12:05 FINDINGS/IMPRESSION: [employer] radiograph is unremarkable. Upon retrospective review of contemporaneous noncontrast head CT, query new 3 mm hyperdensity along the dorsal aspect of the right precentral gyrus with suggestion of adjacent mild hypodensity for which a small hemorrhage with adjacent vasogenic edema is not excluded (image 17, series 5). This finding can be further elucidated on contrast-enhanced MRI. Brain MRI 07/03/23 14:39 IMPRESSION: Limited study with motion artifacts. No acute intracranial process. Mild chronic white matter microangiopathy. Chest X-Ray 07/03/23 20:23 IMPRESSION: No evidence for acute disease in the chest. Chest X-Ray 07/06/23 14:52 IMPRESSION: Interval obscuration left hemidiaphragm, question atelectasis, pneumonia and/or effusion. Mental Status Exam Mental Status Exam Patient Appearance: Disheveled Patient Orientation: Time Level of Consciousness: Awake Patient Behavior: Confused Mood Description: Angry Affect Description: Angry Speech Pattern: Loud Thought Process: Disoriented and Confusion Thought Content: positive for Disoriented and positive for Disorganized Judgement: Poor Medications Medications Current Medications Acetaminophen (Acetaminophen Supp 650 Mg Supp.Rect) 650 mg [place] Q6H PRN PRN Reason: Fever Last Admin: 07/05/23 15:55 Dose: 650 mg Al Hydroxide/Mg Hydroxide (Magnesium Hydrox/Alum Hydrox 30 Ml Oral.Susp) 30 ml PO Q6H PRN PRN Reason: heart burn Aspirin (Aspirin Enteric Coated 81 Mg Tablet.) 81 mg PO DAILY [facility] Last Admin: 07/08/23 10:20 Dose: 81 mg Atorvastatin Calcium (Atorvastatin Calcium 10 Mg Tablet) 10 mg PO BEDTIME [facility] Last Admin: 07/07/23 20:57 Dose: 10 mg Benzonatate (Benzonatate 100 Mg Capsule) 100 mg PO TID PRN PRN Reason: Cough Clonidine HCl (Clonidine Hcl 0.1 Mg Tablet) 0.1 mg PO TID [facility]; Protocol Last Admin: 07/08/23 10:21 Dose: 0.1 mg Dextrose (Dextrose 50 % 25 Gm/50 Ml Syringe) 25 gm IVPUSH Q15M PRN; Protocol PRN Reason: per Hypoglycemia Standing Ord. Docusate Sodium (Docusate Sodium 100 Mg Capsule) 100 mg PO DAILY PRN PRN Reason: Constipation Enoxaparin Sodium (Enoxaparin Sodium 40 Mg/0.4 Ml Syringe) 40 mg SUBCUT Q24H [facility] Last Admin: 07/07/23 19:18 Dose: 40 mg Glucose (Glucose Gel 15 Gm Gel..Gram.) 15 gm PO Q15M PRN; Protocol PRN Reason: per Hypoglycemia Standing Ord. Hydralazine HCl (Hydralazine Hcl 20 Mg/Ml Vial) 10 mg IVPUSH Q4H PRN; Protocol PRN Reason: SBP >180 Last Admin: 07/06/23 11:50 Dose: 10 mg Insulin Glargine (Insulin Glargine,Hum.Rec.Anlog 100 Unit/Ml 10 Ml Vial) 37 unit SUBCUT BEDTIME [facility] Last Admin: 07/07/23 09:52 Dose: 37 unit Insulin Glargine (Insulin Glargine,Hum.Rec.Anlog 100 Unit/Ml 10 Ml Vial) 37 unit SUBCUT DAILY [facility] Last Admin: 07/08/23 10:20 Dose: 37 unit Insulin Human Lispro (Insulin Lispro 100 Unit/Ml 3 Ml Vial) 0 unit SUBCUT QIDACHS [facility]; Protocol Last Admin: 07/08/23 12:14 Dose: 4 unit Levothyroxine Sodium (Levothyroxine Sodium 125 Mcg Tablet) 125 mcg PO DAILY@0600 [facility] Last Admin: 07/08/23 06:08 Dose: Not Given Ondansetron HCl (Ondansetron Hcl 4 Mg/2 Ml Vial) 4 mg IVPUSH Q8H PRN PRN Reason: Nausea and Vomiting Last Admin: 07/06/23 06:14 Dose: 4 mg Pharmacy Consult (Consult Rx Vancomycin Dosing) 1 each MISCELLANE DAILY PRN PRN Reason: Consult order Potassium Chloride (Potassium Chloride Er 20 Meq Tab.Er.Prt) 20 meq PO BID [facility] Last Admin: 07/08/23 10:21 Dose: 20 meq Sodium Chloride (0.9 % Sodium Chloride Flush 3 Ml Syringe) 3 ml IVFLUSH [facility] Last Admin: 07/08/23 10:19 Dose: 3 ml Sodium Chloride (0.9 % Sodium Chloride Flush 3 Ml Syringe) 3 ml IVFLUSH [facility] Last Admin: 07/08/23 10:19 Dose: 3 ml Venlafaxine HCl (Venlafaxine Hcl Er 37.5 Mg Cap.Er.24h) 37.5 mg PO DAILY [facility] Last Admin: 07/08/23 10:20 Dose: 37.5 mg Vitamin D (Cholecalciferol (Vitamin D3) 25 Mcg Tablet) 25 mcg PO DAILY [facility] Last Admin: 07/08/23 10:21 Dose: 25 mcg Allergies Allergies Allergy/AdvReac Type Severity Reaction Status Date / Time Iodinated Contrast Media Allergy Severe SEDATION,TA Verified 07/03/23 10:00 [IVP DYE] CHYCARDIA azithromycin Allergy Unknown Hives Verified 07/03/23 10:00 erythromycin base Allergy Unknown HIVES Verified 07/03/23 10:00 [ERYTHROMYCIN BASE] metformin AdvReac Unknown Diarrhea Verified 07/03/23 10:00 Assessment & Plan Assessment & Plan (1) Altered mental status: Status: Acute Code(s): R41.82 - Altered mental status, unspecified Plan During consult assessment, patient presents disheveled with irritable edge. Patient oriented to self and time, not to place or situation. Patient stated, I'm in my house in [place]. We're not in the hospital! I don't know what you're doing in my house. You favor your youngest daughter. I'm 72 but I'm okay . Patient unable to have a coherent/logical conversation. Patient appeared to become more agitated as the conversation continued. Recommendation: Start: Seroquel 12.5mg PO TID PRN for agitation Monitor QTC Pt was previously prescribed Seroquel; along with Ativan 0.5mg PO BID PRN anxiety Re-consult Neurology Total time managing care of this patient today _20___ minutes. Patient educated on: other (unable to educate d/t mental status) Informed Consent: does not understand
[2023-07-08 15:58] VITALS: BP 137/79; PULSE 72; RESP 18; TEMP 36.4; O2SAT 95
[2023-07-08 16:23] LABS: Glucose, Whole Blood 242 mg/dL (60-115)
[2023-07-08] MEDS: Enoxaparin Sodium 40 MG/0.4 ML SYRINGE SUBCUT (17:29)
[2023-07-08 19:54] VITALS: BP 170/82; PULSE 74; RESP 18; TEMP 36.7; O2SAT 95
[2023-07-08 20:01] LABS: Glucose, Whole Blood 152 mg/dL (60-115)
[2023-07-08] MEDS: LORazepam 0.5 MG TABLET PO (21:52)
[2023-07-08] MEDS: Atorvastatin Calcium 10 MG TABLET PO (21:53)
[2023-07-08] MEDS: QUEtiapine Fumarate 25 MG TABLET 12.5 MG PO (22:10)
--- NOTE | 2023-07-08 23:19 | PC.NURSE ---
pt try to OOB abruptly and talking herself, engage with auditory hallucination. it doesn't make any sense. will continue to monitor.
[2023-07-09 03:08] VITALS: BP 148/72; PULSE 81; RESP 16; TEMP 36.4; O2SAT 94
--- NOTE | 2023-07-09 05:55 | PC.NURSE ---
pt was agitated until midnight, after that fall asleep throughout the night. will continue to monitor.
[2023-07-09] MEDS: Levothyroxine Sodium 125 MCG TABLET PO (06:22)
--- NOTE | 2023-07-09 06:31 | PC.NURSE ---
Left Buttock Blister. 1.5 cm x 1 cm, other redness is same as before.
[2023-07-09 07:34] VITALS: BP 143/66; PULSE 71; RESP 20; TEMP 36.3; O2SAT 95
[2023-07-09 07:34] LABS: MANUAL DIFF FLAG NO
[2023-07-09 07:37] LABS: Anion Gap 11 (12-20); Blood Urea Nitrogen 9 mg/dL (9-16); Calcium 8.9 mg/dL (8.4-10.2); Carbon Dioxide 29 mmol/L (22-29); Chloride 106 mmol/L (96-108); Creatinine Clr Calc Pharmacy 87.4; Estimated Glomerular Filt Rate > 60; Glucose Random 117 mg/dL (60-115); Potassium 3.4 mmol/L (3.3-5.1); Sodium 143 mmol/L (135-145)
[2023-07-09 07:41] LABS: Basophils Percent Auto 0.2 % (0-2); Eosinophils Absolute Auto 0.3 X10*3/uL (0.0-0.4); Eosinophils Percent Auto 2.9 % (0-4); Hematocrit 34.2 % (37.0-47.0); Imm Gran Abs Auto 0.06 X10*3/uL (0.00-0.03); Imm Gran Pct Auto 0.6 % (0.0-0.4); Lymphocytes Absolute Auto 3.1 X10*3/uL (1.2-4.9); Lymphocytes Percent Auto 30.3 % (20-40); Mean Corpuscular HGB Conc 35.1 g/dl (31.0-35.0); Mean Corpuscular Volume 85.5 fL (80.0-98.0); Monocytes Percent Auto 9.3 % (2-11); Neutrophils Absolute Auto 5.8 x10*3/uL (2.0-8.3); Neutrophils Percent Auto 56.7 % (45-73); Platelet Count 274 X10*3/uL (160-400); Red Cell Distribution Width 12.8 % (11.0-16.0); White Blood Count 10.2 X10*3/uL (4.8-10.8)
[2023-07-09 07:55] VITALS: BP 143/66; PULSE 71; O2SAT 95
[2023-07-09 08:08] LABS: Glucose, Whole Blood 152 mg/dL (60-115)
[2023-07-09] MEDS: 0.9 % Sodium Chloride Flush 3 ML SYRINGE IVFLUSH ×6 (08:36→21:36)
[2023-07-09] MEDS: Insulin Lispro 100 UNIT/ML 3 ML VIAL SUBCUT ×4 (08:37→21:34)
[2023-07-09] MEDS: Insulin Glargine,Hum.rec.anlog 100 UNIT/ML 10 ML VIAL 37 UNIT SUBCUT (08:38)
[2023-07-09] MEDS: Cholecalciferol (Vitamin D3) 25 MCG TABLET PO (08:39)
[2023-07-09] MEDS: cloNIDine HCL 0.1 MG TABLET PO ×3 (08:39→21:35)
[2023-07-09] MEDS: Aspirin Enteric Coated 81 MG TABLET.DR PO (08:40)
[2023-07-09] MEDS: Potassium Chloride ER 20 MEQ TAB.ER.PRT PO ×2 (08:40→21:35)
[2023-07-09] MEDS: Venlafaxine HCl ER 37.5 MG CAP.ER.24H PO (08:40)
[2023-07-09 11:11] VITALS: BP 138/65; PULSE 65; RESP 20; TEMP 36.3; O2SAT 95
[2023-07-09 11:25] LABS: Glucose, Whole Blood 260 mg/dL (60-115)
--- NOTE | 2023-07-09 13:30 | HO.PM.IMPN ---
Subjective Subjective Date of Service: 07/09/23 Interval History: seen and examined this morning follow up for encephalopathy awake, alert, remains confused, but improving Review of Systems Unable to obtain Review of Systems: Yes all other systems are reviewed and are negative Constitutional Constitutional: Denies chills and Denies fever(s) Cardiovascular Cardiovascular: Denies chest pain, Denies palpitations and Denies dyspnea Respiratory Respiratory: Denies cough and Denies dyspnea Gastrointestinal Gastrointestinal: Denies abdominal pain Endocrine Endocrine: Denies palpitations Physical Exam Vital Signs: Vital Signs: Last Vital Signs Temp 97.3 F 07/09/23 11:11 Pulse 65 07/09/23 11:11 Resp 20 07/09/23 11:11 BP 138/65 07/09/23 11:11 Pulse Ox 95 07/09/23 11:11 O2 Del Method Room Air 07/09/23 11:11 BMI result Body Mass Index 41.8 Const: Other: awake, alert; confused General: comfortable, no acute distress, alert and awake Nutritional Appearance: obese Orientation/consciousness: oriented to person Resp: Effort & Inspection: normal respiratory effort, able to speak in complete sentences, no respiratory distress and no use of accessory muscles Auscultation: clear to auscultation bilaterally Cardio: Rate: regular rate GI: Inspection: No distended Palpation (GI): Soft to palpation and nontender Neuro: Other: confused, moving all extremities, no deficits appreciated General: oriented to person and moves all extremities Extrem: General: Yes no pedal edema Objective Data Active Medications Acetaminophen (Acetaminophen Supp 650 Mg Supp.Rect) 650 mg [place] Q6H PRN PRN Reason: Fever Last Admin: 07/05/23 15:55 Dose: 650 mg Documented By: SABAS Al Hydroxide/Mg Hydroxide (Magnesium Hydrox/Alum Hydrox 30 Ml Oral.Susp) 30 ml PO Q6H PRN PRN Reason: heart burn Aspirin (Aspirin Enteric Coated 81 Mg Tablet.) 81 mg PO DAILY [facility] Last Admin: 07/09/23 08:40 Dose: 81 mg Documented By: JANELLE Atorvastatin Calcium (Atorvastatin Calcium 10 Mg Tablet) 10 mg PO BEDTIME [facility] Last Admin: 07/08/23 21:53 Dose: 10 mg Documented By: RANDELL Benzonatate (Benzonatate 100 Mg Capsule) 100 mg PO TID PRN PRN Reason: Cough Clonidine HCl (Clonidine Hcl 0.1 Mg Tablet) 0.1 mg PO TID [facility]; Protocol Last Admin: 07/09/23 08:39 Dose: 0.1 mg Documented By: JANELLE Dextrose (Dextrose 50 % 25 Gm/50 Ml Syringe) 25 gm IVPUSH Q15M PRN; Protocol PRN Reason: per Hypoglycemia Standing Ord. Docusate Sodium (Docusate Sodium 100 Mg Capsule) 100 mg PO DAILY PRN PRN Reason: Constipation Enoxaparin Sodium (Enoxaparin Sodium 40 Mg/0.4 Ml Syringe) 40 mg SUBCUT Q24H [facility] Last Admin: 07/08/23 17:29 Dose: 40 mg Documented By: JANELLE Glucose (Glucose Gel 15 Gm Gel..Gram.) 15 gm PO Q15M PRN; Protocol PRN Reason: per Hypoglycemia Standing Ord. Hydralazine HCl (Hydralazine Hcl 20 Mg/Ml Vial) 10 mg IVPUSH Q4H PRN; Protocol PRN Reason: SBP >180 Last Admin: 07/06/23 11:50 Dose: 10 mg Documented By: SABAS Insulin Glargine (Insulin Glargine,Hum.Rec.Anlog 100 Unit/Ml 10 Ml Vial) 37 unit SUBCUT BEDTIME [facility] Last Admin: 07/08/23 21:52 Dose: 37 unit Documented By: RANDELL Insulin Glargine (Insulin Glargine,Hum.Rec.Anlog 100 Unit/Ml 10 Ml Vial) 37 unit SUBCUT DAILY [facility] Last Admin: 07/09/23 08:38 Dose: 37 unit Documented By: JANELLE Insulin Human Lispro (Insulin Lispro 100 Unit/Ml 3 Ml Vial) 0 unit SUBCUT QIDACHS [facility]; Protocol Last Admin: 07/09/23 12:04 Dose: 6 unit Documented By: JANELLE Levothyroxine Sodium (Levothyroxine Sodium 125 Mcg Tablet) 125 mcg PO DAILY@0600 [facility] Last Admin: 07/09/23 06:22 Dose: 125 mcg Documented By: RANDELL Lorazepam (Lorazepam 0.5 Mg Tablet) 0.5 mg PO BID PRN PRN Reason: anxiety/restlessness Last Admin: 07/08/23 21:52 Dose: 0.5 mg Documented By: RANDELL Pt Own (Ubrogepant [ Ubrelvy] 100 Mg Tablet) 100 mg PO DAILY MRX1 PRN PRN Reason: Migraine Headache Ondansetron HCl (Ondansetron Hcl 4 Mg/2 Ml Vial) 4 mg IVPUSH Q8H PRN PRN Reason: Nausea and Vomiting Last Admin: 07/06/23 06:14 Dose: 4 mg Documented By: SREEKANTH Pharmacy Consult (Consult Rx Vancomycin Dosing) 1 each MISCELLANE DAILY PRN PRN Reason: Consult order Potassium Chloride (Potassium Chloride Er 20 Meq Tab.Er.Prt) 20 meq PO BID [facility] Last Admin: 07/09/23 08:40 Dose: 20 meq Documented By: JANELLE Quetiapine Fumarate (Quetiapine Fumarate 25 Mg Tablet) 12.5 mg PO BID PRN PRN Reason: Agitation Last Admin: 07/08/23 22:10 Dose: 12.5 mg Documented By: RANDELL Sodium Chloride (0.9 % Sodium Chloride Flush 3 Ml Syringe) 3 ml IVFLUSH [facility] Last Admin: 07/09/23 08:36 Dose: 3 ml Documented By: JANELLE Sodium Chloride (0.9 % Sodium Chloride Flush 3 Ml Syringe) 3 ml IVFLUSH [facility] Last Admin: 07/09/23 08:36 Dose: 3 ml Documented By: JANELLE Venlafaxine HCl (Venlafaxine Hcl Er 37.5 Mg Cap.Er.24h) 37.5 mg PO DAILY [facility] Last Admin: 07/09/23 08:40 Dose: 37.5 mg Documented By: JANELLE Vitamin D (Cholecalciferol (Vitamin D3) 25 Mcg Tablet) 25 mcg PO DAILY [facility] Last Admin: 07/09/23 08:39 Dose: 25 mcg Documented By: JANELLE Labs 07/09/23 06:42 07/09/23 06:42 Labs: Laboratory Results - last 24 hr 07/08/23 07/08/23 07/09/23 16:17 19:56 06:42 MCV 85.5 MCH 30.0 MCHC 35.1 H RDW 12.8 Plt Count 274 MPV 12.0 Immature Gran % (Auto) 0.6 H Neut % (Auto) 56.7 Lymph % (Auto) 30.3 [place] % (Auto) 9.3 Eos % (Auto) 2.9 Baso % (Auto) 0.2 Lymph # (Auto) 3.1 [place] # (Auto) 1.0 Eos # (Auto) 0.3 Baso # (Auto) 0.0 Abs Immat Gran (auto) 0.06 H Absolute Neuts (auto) 5.8 Absolute Nucleated RBC 0.000 Nucleated RBC % (auto) 0.0 Hold Purple Top SEE NOTE Anion Gap 11 L Estim Creat Clear Calc 87.4 Estimated GFR > 60 POC Glucose 242 H 152 H Random Glucose 117 H Calcium 8.9 07/09/23 07/09/23 07:40 11:14 MCV MCH MCHC RDW Plt Count MPV Immature Gran % (Auto) Neut % (Auto) Lymph % (Auto) [place] % (Auto) Eos % (Auto) Baso % (Auto) Lymph # (Auto) [place] # (Auto) Eos # (Auto) Baso # (Auto) Abs Immat Gran (auto) Absolute Neuts (auto) Absolute Nucleated RBC Nucleated RBC % (auto) Hold Purple Top Anion Gap Estim Creat Clear Calc Estimated GFR POC Glucose 152 H 260 H Random Glucose Calcium Microbiology Microbiology Results: Microbiology 07/03/23 20:38 Blood Culture - Final Blood - Venous No growth after 5 days. 07/03/23 20:38 Blood Culture - Final Blood - Venous No growth after 5 days. Assessment and Plan (1) Altered mental status: Status: Acute Plan Pt is a 72-year-old female with a PMH significant for?complex migraines, insulin-dependent type 2 diabetes with neuropathy, HLD, and hypothyroidism who presents to the ED for evaluation of sudden-onset left sided upper and lower extremity weakness. Pt will be admitted to the hospital for further treatment and workup for left-sided weakness in the setting of likely complex migraine. Complex migraine with encephalopathy and hospital delirium classic presentation with 2-3 days of somnolence then wakes up PT consult>rec STR multiple admissions here and at [facility] as well as [facility] with similar presentations that have been variously attributed to malignant catatonia or complex migraine syndrome afebrile since 07/05, mental status improving, but remains confused if symptoms worsen neuro rec to repeat LP and consider prednisone for possible autoimmune encephalitis; discussed with patient and , they declined LP gabapentin has been on hold due to lethargy - will resume low dose, up titrate to home dose as mental status allows asking to resume ulbrelvy as this reportedly helps her calm down and assists with her headaches seen by psych - started on low dose seroquel prn and ativan prn (on ativan at baseline, was on hold due to lethargy) hypokalemia replace and follow BMP Insulin-dependent diabetes type 2 with hyperglycemia ss, ada diet Lantus HTN clonidine hydralazine IV for SBP>180 CKD 3 baseline Hypothyroidism continue levothyroxine Mental health continue Effexor HLD continue statin DNR/DNI Attending Dr. Montrell Núñez Requires ongoing hospitalization given treatment secondary to complex migraine Quality Stroke Does the patient have a stroke diagnosis?: No VTE Prior VTE?: No VTE Risk Level:: Medical - moderate - high VTE Device Contraindication: Treatment Not Indicated VTE Drug Contraindication: N/A - Med Ordered
--- NOTE | 2023-07-09 14:53 | MHC.CM.PN ---
EMR reviewed and per MD rounds, pt is not medically cleared for D/C due to ongoing management of complex migraine. This CM met with pts to discuss D/C plans. [facility] [place] willing to accept pt pending insurance carve out for meds. Per pts she can bring the Ubrelvy from home, this was relayed to the facility. [facility] and [facility] are interested and following on [facility].
[2023-07-09 16:00] VITALS: BP 149/63; PULSE 69; RESP 20; TEMP 36.2; O2SAT 95
[2023-07-09 16:31] LABS: Glucose, Whole Blood 212 mg/dL (60-115)
[2023-07-09] MEDS: Gabapentin 100 MG CAPSULE PO ×2 (16:32→21:35)
[2023-07-09 16:35] LABS: Glucose, Whole Blood 212 mg/dL (60-115)
[2023-07-09] MEDS: Acetaminophen 325 MG TABLET 650 MG PO (18:33)
[2023-07-09] MEDS: Enoxaparin Sodium 40 MG/0.4 ML SYRINGE SUBCUT (18:34)
[2023-07-09 20:00] VITALS: BP 177/71; PULSE 67; RESP 16; TEMP 37; O2SAT 95
[2023-07-09 21:24] LABS: Glucose, Whole Blood 209 mg/dL (60-115)
[2023-07-09] MEDS: Atorvastatin Calcium 10 MG TABLET PO (21:35)
--- NOTE | 2023-07-09 21:38 | PC.NURSE ---
insulin garglin 37 units adminstered at 8 .
[2023-07-10 00:33] VITALS: BP 140/63; PULSE 61; RESP 16; TEMP 36.8; O2SAT 95
[2023-07-10 03:56] VITALS: BP 146/66; PULSE 57; RESP 18; TEMP 36.8; O2SAT 96
[2023-07-10] MEDS: Levothyroxine Sodium 125 MCG TABLET PO (05:51)
[2023-07-10 06:48] LABS: Anion Gap 11 (12-20); Blood Urea Nitrogen 13 mg/dL (9-16); Calcium 8.5 mg/dL (8.4-10.2); Carbon Dioxide 28 mmol/L (22-29); Chloride 107 mmol/L (96-108); Creatinine Clr Calc Pharmacy 83.1; Estimated Glomerular Filt Rate > 60; Glucose Random 133 mg/dL (60-115); Potassium 3.7 mmol/L (3.3-5.1); Sodium 142 mmol/L (135-145)
[2023-07-10 08:00] VITALS: BP 150/66; PULSE 67; RESP 18; TEMP 36.1; O2SAT 95
[2023-07-10 08:02] LABS: Glucose, Whole Blood 158 mg/dL (60-115)
[2023-07-10] MEDS: Insulin Lispro 100 UNIT/ML 3 ML VIAL SUBCUT ×4 (08:24→19:59)
[2023-07-10] MEDS: Aspirin Enteric Coated 81 MG TABLET.DR PO (08:25)
[2023-07-10] MEDS: cloNIDine HCL 0.1 MG TABLET PO ×3 (08:25→19:58)
[2023-07-10] MEDS: Cholecalciferol (Vitamin D3) 25 MCG TABLET PO (08:25)
[2023-07-10] MEDS: Gabapentin 100 MG CAPSULE PO ×3 (08:25→19:58)
[2023-07-10] MEDS: 0.9 % Sodium Chloride Flush 3 ML SYRINGE IVFLUSH ×4 (08:26→20:11)
[2023-07-10] MEDS: Venlafaxine HCl ER 37.5 MG CAP.ER.24H PO (09:08)
[2023-07-10] MEDS: Insulin Glargine,Hum.rec.anlog 100 UNIT/ML 10 ML VIAL 37 UNIT SUBCUT ×2 (09:08→19:59)
--- NOTE | 2023-07-10 11:21 | HO.PM.IMPN ---
Subjective Subjective Date of Service: 07/10/23 Interval History: seen and examined this morning follow up for encephalopathy awake, alert Review of Systems Unable to obtain Review of Systems: Yes all other systems are reviewed and are negative Constitutional Constitutional: Denies chills and Denies fever(s) Cardiovascular Cardiovascular: Denies chest pain, Denies palpitations and Denies dyspnea Respiratory Respiratory: Denies cough and Denies dyspnea Gastrointestinal Gastrointestinal: Denies abdominal pain Endocrine Endocrine: Denies palpitations Physical Exam Vital Signs: Vital Signs: Last Vital Signs Temp 97.0 F 07/10/23 08:00 Pulse 67 07/10/23 08:00 Resp 18 07/10/23 08:00 BP 150/66 H 07/10/23 08:00 Pulse Ox 95 07/10/23 08:00 O2 Del Method Room Air 07/10/23 08:00 BMI result Body Mass Index 41.8 Appearing in no acute distress lung sounds are clear to auscultation heart regular rate rhythm, clear S1, S2 positive bowel sounds, abdomen is soft, nontender neuro patient is alert x3, no focal deficits Objective Data Active Medications Acetaminophen (Acetaminophen Supp 650 Mg Supp.Rect) 650 mg MN Q6H PRN PRN Reason: Fever Last Admin: 07/05/23 15:55 Dose: 650 mg Documented By: SABAS Acetaminophen (Acetaminophen 325 Mg Tablet) 650 mg PO Q6H PRN PRN Reason: Pain, Mild (Pain Scale 1-3) Last Admin: 07/09/23 18:33 Dose: 650 mg Documented By: JANELLE Al Hydroxide/Mg Hydroxide (Magnesium Hydrox/Alum Hydrox 30 Ml Oral.Susp) 30 ml PO Q6H PRN PRN Reason: heart burn Aspirin (Aspirin Enteric Coated 81 Mg Tablet.Dr) 81 mg PO DAILY [facility] Last Admin: 07/10/23 08:25 Dose: 81 mg Documented By: ABILIO Atorvastatin Calcium (Atorvastatin Calcium 10 Mg Tablet) 10 mg PO BEDTIME [facility] Last Admin: 07/09/23 21:35 Dose: 10 mg Documented By: DAPHNE Benzonatate (Benzonatate 100 Mg Capsule) 100 mg PO TID PRN PRN Reason: Cough Clonidine HCl (Clonidine Hcl 0.1 Mg Tablet) 0.1 mg PO TID [facility]; Protocol Last Admin: 07/10/23 08:25 Dose: 0.1 mg Documented By: ABILIO Dextrose (Dextrose 50 % 25 Gm/50 Ml Syringe) 25 gm IVPUSH Q15M PRN; Protocol PRN Reason: per Hypoglycemia Standing Ord. Docusate Sodium (Docusate Sodium 100 Mg Capsule) 100 mg PO DAILY PRN PRN Reason: Constipation Enoxaparin Sodium (Enoxaparin Sodium 40 Mg/0.4 Ml Syringe) 40 mg SUBCUT Q24H [facility] Last Admin: 07/09/23 18:34 Dose: 40 mg Documented By: JANELLE Gabapentin (Gabapentin 100 Mg Capsule) 100 mg PO TID [facility] Last Admin: 07/10/23 08:25 Dose: 100 mg Documented By: ABILIO Glucose (Glucose Gel 15 Gm Gel..Gram.) 15 gm PO Q15M PRN; Protocol PRN Reason: per Hypoglycemia Standing Ord. Hydralazine HCl (Hydralazine Hcl 20 Mg/Ml Vial) 10 mg IVPUSH Q4H PRN; Protocol PRN Reason: SBP >180 Last Admin: 07/06/23 11:50 Dose: 10 mg Documented By: SABAS Insulin Glargine (Insulin Glargine,Hum.Rec.Anlog 100 Unit/Ml 10 Ml Vial) 37 unit SUBCUT BEDTIME [facility] Last Admin: 07/08/23 21:52 Dose: 37 unit Insulin Glargine (Insulin Glargine,Hum.Rec.Anlog 100 Unit/Ml 10 Ml Vial) 37 unit SUBCUT DAILY [facility] Last Admin: 07/10/23 09:08 Dose: 37 unit Documented By: ABILIO Insulin Human Lispro (Insulin Lispro 100 Unit/Ml 3 Ml Vial) 0 unit SUBCUT QIDACHS [facility]; Protocol Last Admin: 07/10/23 08:24 Dose: 2 unit Documented By: ABILIO Levothyroxine Sodium (Levothyroxine Sodium 125 Mcg Tablet) 125 mcg PO DAILY@0600 [facility] Last Admin: 07/10/23 05:51 Dose: 125 mcg Documented By: DAPHNE Lorazepam (Lorazepam 0.5 Mg Tablet) 0.5 mg PO BID PRN PRN Reason: anxiety/restlessness Last Admin: 07/08/23 21:52 Dose: 0.5 mg Documented By: RANDELL Pt Own (Ubrogepant [ Ubrelvy] 100 Mg Tablet) 100 mg PO DAILY MRX1 PRN PRN Reason: Migraine Headache Ondansetron HCl (Ondansetron Hcl 4 Mg/2 Ml Vial) 4 mg IVPUSH Q8H PRN PRN Reason: Nausea and Vomiting Last Admin: 07/06/23 06:14 Dose: 4 mg Documented By: SREEKANTH Pharmacy Consult (Consult Rx Vancomycin Dosing) 1 each MISCELLANE DAILY PRN PRN Reason: Consult order Potassium Chloride (Potassium Chloride Er 20 Meq Tab.Er.Prt) 20 meq PO BID [facility] Last Admin: 07/10/23 09:58 Dose: Not Given Documented By: ABILIO Non-Admin Reason: Patient Refused Quetiapine Fumarate (Quetiapine Fumarate 25 Mg Tablet) 12.5 mg PO BID PRN PRN Reason: Agitation Last Admin: 07/08/23 22:10 Dose: 12.5 mg Documented By: RANDELL Sodium Chloride (0.9 % Sodium Chloride Flush 3 Ml Syringe) 3 ml IVFLUSH [facility] Last Admin: 07/10/23 08:26 Dose: 3 ml Documented By: ABILIO Sodium Chloride (0.9 % Sodium Chloride Flush 3 Ml Syringe) 3 ml IVFLUSH [facility] Last Admin: 07/10/23 08:26 Dose: Not Given Documented By: ABILIO Non-Admin Reason: Duplicate Order Venlafaxine HCl (Venlafaxine Hcl Er 37.5 Mg Cap.Er.24h) 37.5 mg PO DAILY [facility] Last Admin: 07/10/23 09:08 Dose: 37.5 mg Documented By: ABILIO Vitamin D (Cholecalciferol (Vitamin D3) 25 Mcg Tablet) 25 mcg PO DAILY [facility] Last Admin: 07/10/23 08:25 Dose: 25 mcg Documented By: ABILIO Labs 07/09/23 06:42 07/10/23 06:01 Labs: Laboratory Results - last 24 hr 07/09/23 07/09/23 07/09/23 11:14 16:08 16:24 Hold Purple Top Anion Gap Estim Creat Clear Calc Estimated GFR POC Glucose 260 H 212 H 212 H Random Glucose Calcium 07/09/23 07/10/23 07/10/23 21:19 06:01 07:59 Hold Purple Top SEE NOTE Anion Gap 11 L Estim Creat Clear Calc 83.1 Estimated GFR > 60 POC Glucose 209 H 158 H Random Glucose 133 H Calcium 8.5 Assessment and Plan (1) Altered mental status: Status: Acute Plan Pt is a 72-year-old female with a PMH significant for?complex migraines, insulin-dependent type 2 diabetes with neuropathy, HLD, and hypothyroidism who presents to the ED for evaluation of sudden-onset left sided upper and lower extremity weakness. Pt will be admitted to the hospital for further treatment and workup for left-sided weakness in the setting of likely complex migraine. Complex migraine with encephalopathy and hospital delirium classic presentation with 2-3 days of somnolence then wakes up multiple admissions here and at [facility] as well as [facility] with similar presentations that have been variously attributed to malignant catatonia or complex migraine syndrome on ulbrelvy seen by psych - started on low dose seroquel prn and ativan prn (on ativan at baseline, was on hold due to lethargy) hypokalemia replace and follow BMP Insulin-dependent diabetes type 2 with hyperglycemia ss, ada diet Lantus HTN clonidine hydralazine IV for SBP>180 CKD 3 baseline Hypothyroidism continue levothyroxine Mental health continue Effexor HLD continue statin DNR/DNI Attending Dr. Aryan Núñez DISPO PT rec STR but patient wants to go home, will decide when medically clear Requires ongoing hospitalization given treatment secondary to complex migraine Quality Stroke Does the patient have a stroke diagnosis?: No VTE Prior VTE?: No VTE Risk Level:: Medical - moderate - high VTE Device Contraindication: Treatment Not Indicated VTE Drug Contraindication: N/A - Med Ordered
[2023-07-10 11:22] LABS: Glucose, Whole Blood 294 mg/dL (60-115)
[2023-07-10] MEDS: Acetaminophen 325 MG TABLET 650 MG PO ×2 (11:50→20:01)
[2023-07-10 15:40] VITALS: BP 148/74; PULSE 62; RESP 20; TEMP 36.4; O2SAT 94
[2023-07-10 16:13] LABS: Glucose, Whole Blood 191 mg/dL (60-115)
[2023-07-10] MEDS: Enoxaparin Sodium 40 MG/0.4 ML SYRINGE SUBCUT (16:18)
[2023-07-10 19:47] VITALS: BP 146/63; PULSE 66; RESP 18; TEMP 36; O2SAT 95
[2023-07-10] MEDS: Atorvastatin Calcium 10 MG TABLET PO (19:58)
[2023-07-10 20:11] LABS: Glucose, Whole Blood 209 mg/dL (60-115)
[2023-07-11] MEDS: QUEtiapine Fumarate 25 MG TABLET 12.5 MG PO (02:44)
[2023-07-11] MEDS: Acetaminophen 325 MG TABLET 650 MG PO (02:44)
[2023-07-11 04:00] VITALS: BP 140/50; PULSE 63; RESP 18; TEMP 36.1; O2SAT 95
[2023-07-11] MEDS: Levothyroxine Sodium 125 MCG TABLET PO (04:59)
[2023-07-11 07:22] VITALS: BP 145/76; PULSE 63; RESP 18; TEMP 36.2; O2SAT 94
[2023-07-11 07:29] LABS: Creatinine Clr Calc Pharmacy 81.2; Estimated Glomerular Filt Rate > 60
[2023-07-11 07:29] LABS: Glucose, Whole Blood 105 mg/dL (60-115)
[2023-07-11] MEDS: 0.9 % Sodium Chloride Flush 3 ML SYRINGE IVFLUSH ×2 (08:22→08:23)
[2023-07-11] MEDS: Cholecalciferol (Vitamin D3) 25 MCG TABLET PO (08:22)
[2023-07-11] MEDS: Aspirin Enteric Coated 81 MG TABLET.DR PO (08:22)
[2023-07-11] MEDS: cloNIDine HCL 0.1 MG TABLET PO ×2 (08:22→15:00)
[2023-07-11] MEDS: Gabapentin 100 MG CAPSULE PO ×2 (08:22→15:00)
[2023-07-11] MEDS: Venlafaxine HCl ER 37.5 MG CAP.ER.24H PO (08:22)
[2023-07-11] MEDS: Insulin Glargine,Hum.rec.anlog 100 UNIT/ML 10 ML VIAL 37 UNIT SUBCUT (08:23)
--- NOTE | 2023-07-11 10:05 | HO.PM.IMPN ---
Subjective Subjective Date of Service: 07/11/23 Interval History: seen and examined this morning follow up for encephalopathy awake, alert Review of Systems Unable to obtain Review of Systems: Yes all other systems are reviewed and are negative Constitutional Constitutional: Denies chills and Denies fever(s) Cardiovascular Cardiovascular: Denies chest pain, Denies palpitations and Denies dyspnea Respiratory Respiratory: Denies cough and Denies dyspnea Gastrointestinal Gastrointestinal: Denies abdominal pain Endocrine Endocrine: Denies palpitations Physical Exam Vital Signs: Vital Signs: Last Vital Signs Temp 97.1 F 07/11/23 07:22 Pulse 63 07/11/23 07:22 Resp 18 07/11/23 07:22 BP 145/76 H 07/11/23 07:22 Pulse Ox 94 07/11/23 07:22 O2 Del Method Room Air 07/11/23 07:22 BMI result Body Mass Index 41.8 Appearing in no acute distress lung sounds are clear to auscultation heart regular rate rhythm, clear S1, S2 positive bowel sounds, abdomen is soft, nontender neuro patient is alert x3, no focal deficits Objective Data Active Medications Acetaminophen (Acetaminophen Supp 650 Mg Supp.Rect) 650 mg DC Q6H PRN PRN Reason: Fever Last Admin: 07/05/23 15:55 Dose: 650 mg Documented By: SABAS Acetaminophen (Acetaminophen 325 Mg Tablet) 650 mg PO Q6H PRN PRN Reason: Pain, Mild (Pain Scale 1-3) Last Admin: 07/11/23 02:44 Dose: 650 mg Documented By: DAPHNE Al Hydroxide/Mg Hydroxide (Magnesium Hydrox/Alum Hydrox 30 Ml Oral.Susp) 30 ml PO Q6H PRN PRN Reason: heart burn Aspirin (Aspirin Enteric Coated 81 Mg Tablet.Dr) 81 mg PO DAILY [facility] Last Admin: 07/11/23 08:22 Dose: 81 mg Documented By: VEE Atorvastatin Calcium (Atorvastatin Calcium 10 Mg Tablet) 10 mg PO BEDTIME [facility] Last Admin: 07/10/23 19:58 Dose: 10 mg Documented By: DAPHNE Benzonatate (Benzonatate 100 Mg Capsule) 100 mg PO TID PRN PRN Reason: Cough Clonidine HCl (Clonidine Hcl 0.1 Mg Tablet) 0.1 mg PO TID [facility]; Protocol Last Admin: 07/11/23 08:22 Dose: 0.1 mg Documented By: VEE Dextrose (Dextrose 50 % 25 Gm/50 Ml Syringe) 25 gm IVPUSH Q15M PRN; Protocol PRN Reason: per Hypoglycemia Standing Ord. Docusate Sodium (Docusate Sodium 100 Mg Capsule) 100 mg PO DAILY PRN PRN Reason: Constipation Enoxaparin Sodium (Enoxaparin Sodium 40 Mg/0.4 Ml Syringe) 40 mg SUBCUT Q24H [facility] Last Admin: 07/10/23 16:18 Dose: 40 mg Documented By: ABILIO Gabapentin (Gabapentin 100 Mg Capsule) 100 mg PO TID [facility] Last Admin: 07/11/23 08:22 Dose: 100 mg Documented By: VEE Glucose (Glucose Gel 15 Gm Gel..Gram.) 15 gm PO Q15M PRN; Protocol PRN Reason: per Hypoglycemia Standing Ord. Hydralazine HCl (Hydralazine Hcl 20 Mg/Ml Vial) 10 mg IVPUSH Q4H PRN; Protocol PRN Reason: SBP >180 Last Admin: 07/06/23 11:50 Dose: 10 mg Documented By: SABAS Insulin Glargine (Insulin Glargine,Hum.Rec.Anlog 100 Unit/Ml 10 Ml Vial) 37 unit SUBCUT BEDTIME [facility] Last Admin: 07/10/23 19:59 Dose: 37 unit Documented By: DAPHNE Insulin Glargine (Insulin Glargine,Hum.Rec.Anlog 100 Unit/Ml 10 Ml Vial) 37 unit SUBCUT DAILY [facility] Last Admin: 07/11/23 08:23 Dose: 37 unit Documented By: VEE Insulin Human Lispro (Insulin Lispro 100 Unit/Ml 3 Ml Vial) 0 unit SUBCUT QIDACHS [facility]; Protocol Last Admin: 07/11/23 08:21 Dose: Not Given Documented By: VEE Non-Admin Reason: No Insulin Coverage Levothyroxine Sodium (Levothyroxine Sodium 125 Mcg Tablet) 125 mcg PO DAILY@0600 [facility] Last Admin: 07/11/23 04:59 Dose: 125 mcg Documented By: DAPHNE Lorazepam (Lorazepam 0.5 Mg Tablet) 0.5 mg PO BID PRN PRN Reason: anxiety/restlessness Last Admin: 07/08/23 21:52 Dose: 0.5 mg Documented By: RANDELL Pt Own (Ubrogepant [ Ubrelvy] 100 Mg Tablet) 100 mg PO DAILY MRX1 PRN PRN Reason: Migraine Headache Ondansetron HCl (Ondansetron Hcl 4 Mg/2 Ml Vial) 4 mg IVPUSH Q8H PRN PRN Reason: Nausea and Vomiting Last Admin: 07/06/23 06:14 Dose: 4 mg Documented By: SREEKANTH Pharmacy Consult (Consult Rx Vancomycin Dosing) 1 each MISCELLANE DAILY PRN PRN Reason: Consult order Quetiapine Fumarate (Quetiapine Fumarate 25 Mg Tablet) 12.5 mg PO BID PRN PRN Reason: Agitation Last Admin: 07/11/23 02:44 Dose: 12.5 mg Documented By: DAPHNE Sodium Chloride (0.9 % Sodium Chloride Flush 3 Ml Syringe) 3 ml IVFLUSH [facility] Last Admin: 07/11/23 08:22 Dose: 3 ml Documented By: VEE Sodium Chloride (0.9 % Sodium Chloride Flush 3 Ml Syringe) 3 ml IVFLUSH [facility] Last Admin: 07/11/23 08:23 Dose: 3 ml Documented By: VEE Venlafaxine HCl (Venlafaxine Hcl Er 37.5 Mg Cap.Er.24h) 37.5 mg PO DAILY [facility] Last Admin: 07/11/23 08:22 Dose: 37.5 mg Documented By: VEE Vitamin D (Cholecalciferol (Vitamin D3) 25 Mcg Tablet) 25 mcg PO DAILY [facility] Last Admin: 07/11/23 08:22 Dose: 25 mcg Documented By: VEE Labs 07/09/23 06:42 07/11/23 06:35 Labs: Laboratory Results - last 24 hr 07/10/23 07/10/23 07/10/23 11:18 16:06 19:52 Hold Purple Top Estim Creat Clear Calc Estimated GFR POC Glucose 294 H 191 H 209 H 07/11/23 07/11/23 06:35 07:25 Hold Purple Top SEE NOTE Estim Creat Clear Calc 81.2 Estimated GFR > 60 POC Glucose 105 Assessment and Plan (1) Altered mental status: Status: Acute Plan Pt is a 72-year-old female with a PMH significant for?complex migraines, insulin-dependent type 2 diabetes with neuropathy, HLD, and hypothyroidism who presents to the ED for evaluation of sudden-onset left sided upper and lower extremity weakness. Pt will be admitted to the hospital for further treatment and workup for left-sided weakness in the setting of likely complex migraine. Complex migraine with encephalopathy and hospital delirium classic presentation with 2-3 days of somnolence then wakes up multiple admissions here and at [facility] as well as [facility] with similar presentations that have been variously attributed to malignant catatonia or complex migraine syndrome on ulbrelvy seen by psych - started on low dose seroquel prn and ativan prn (on ativan at baseline, was on hold due to lethargy) hypokalemia replace and follow BMP Insulin-dependent diabetes type 2 with hyperglycemia ss, ada diet Lantus HTN clonidine hydralazine IV for SBP>180 CKD 3 baseline Hypothyroidism continue levothyroxine Mental health continue Effexor HLD continue statin DNR/DNI Attending Dr. Aryan Núñez DISPO PT rec STR Requires ongoing hospitalization given treatment secondary to complex migraine Quality Stroke Does the patient have a stroke diagnosis?: No VTE Prior VTE?: No VTE Risk Level:: Medical - moderate - high VTE Device Contraindication: Treatment Not Indicated VTE Drug Contraindication: N/A - Med Ordered
--- NOTE | 2023-07-11 11:01 | MHC.CM.PN ---
Addendum entered by Kelsie See 07/11/23 15:09: PT AMBULATED WITH NURSING STAFF AND REPORTS SHE FEELS WELL ENOUGH TO GO HOME CM DID MAKE A BROAD VNA REFERRAL HOWEVER THERE ARE NO AGENCIES ACCEPTING CM DID DISCUSS THE BARRIERS TO VNA WITH PT AND INCLUDING THE AREA THEY LIVE AND PTS INSURANCE PT STATED SHE DID NOT WANT A VNA HOWEVER HER IS STILL HOPEFUL ONE CAN BE SECURED HE IS AWARE HE WILL BE CONTACTED VIA PHONE IF AN AGENCY OFFERS AFTER DC [facility] WILL BE HERE BY 1700 HOURS TO TRANSPORT PT HOME Original Note: CM INFORMED PT IS MEDICALLY READY TO DC CM MET WITH PT WHO REPORTS SHE WOULD LIKE TO GO HOME PTS RN STATES PTS REPORTED CONCERN ABOUT PT GOING UP STEPS AT HOME CM CALLED PTS , [facility] [phone], WHO STATES PT DID SEEM LIKE SHE WAS DOING BETTER, BUT ONCE IN THE HOME THERE IS A STEP FROM THE LIVING ROOM TO THE NEXT ROOM AND THEN ANOTHER STEP TO A SUBSEQUENT AREA. MANAV EXPLAINED IT WAS UNCLEAR IF [facility] WOULD AUTHORIZE STR SINCE PT IS TRANSFERRING AND AMBULATING WITH SUPERVISION ONLY AT THIS POINT. [facility] AGREES IF PT IS ABLE TO AMBULATE IN THE HALLWAY WITH STAFF STEADILY, HOME MAY BE THE BEST PLAN CM DOES HAVE VNA REFERRALS OUT FOR HOME PT
[2023-07-11] MEDS: Insulin Lispro 100 UNIT/ML 3 ML VIAL SUBCUT (11:22)
[2023-07-11 11:23] VITALS: BP 162/70
[2023-07-11 11:25] LABS: Glucose, Whole Blood 252 mg/dL (60-115)
== END 2023-07-11 16:23 | DRG 102 ==
LOC: HO.ED 12:38 → HO.EDOVER 16:17 → HO.IMC 18:05
PROVIDERS: Hospitalist; Physician Assistant; Physician Assistant Medical; Admitting Provider Student in an Organized Health Care Education/Training Program; Emergency Provider Emergency Medicine; PCP Internal Medicine; Visit Provider Nurse Practitioner Acute Care
DX: G43.101 Migraine with aura, not intractable, with status migrainosus (principal); G93.41 Metabolic encephalopathy; Z68.41 Body mass index [BMI] 40.0-44.9, adult; E11.65 Type 2 diabetes mellitus with hyperglycemia; Z66 Do not resuscitate; E66.01 Morbid (severe) obesity due to excess calories; N18.30 Chronic kidney disease, stage 3 unspecified; I12.9 Hypertensive chronic kidney disease with stage 1 through stage 4 chronic kidney disease, or unspecified chronic kidney disease; E11.22 Type 2 diabetes mellitus with diabetic chronic kidney disease; E03.9 Hypothyroidism, unspecified; E78.5 Hyperlipidemia, unspecified; Z20.822 Contact with and (suspected) exposure to COVID-19; Z91.041 Radiographic dye allergy status; Z79.4 Long term (current) use of insulin; Z79.890 Hormone replacement therapy; Z79.899 Other long term (current) drug therapy
CPT/HCPCS: 36415; 70450; 70496; 70498; 70551; 71045; 80048; 80202; 81001; 82550; 82565; 82947; 83605; 84484; 85025; 85027; 85610; 85652; 85730; 86140; 87040; 87633; 93005; 97110; 97116; 97162; 99285; J0360; J0696; J1200; J1650; J1885; J1956; J2060; J2405; J2765; J2930; J3370; J3371

== ENCOUNTER → 2023-07-03 09:29 | Outpatient (BNV) | payer MEDICARE, SELFPAY | PROVIDERS: Admitting Provider Student in an Organized Health Care Education/Training Program; Emergency Provider Emergency Medicine; PCP Internal Medicine; Visit Provider Internal Medicine Cardiovascular Disease | DX: R53.1 Weakness (principal); R94.31 Abnormal electrocardiogram [ECG] [EKG] | CPT/HCPCS: 93010 ==

== ENCOUNTER → 2023-07-03 09:59 | Outpatient (BNV) | payer MEDICARE, SELFPAY | PROVIDERS: Emergency Provider Emergency Medicine; PCP Internal Medicine; Visit Provider Psychiatry & Neurology Neurology | DX: G43.901 Migraine, unspecified, not intractable, with status migrainosus (principal) | CPT/HCPCS: 99223 ==

== ENCOUNTER → 2023-07-03 15:35 | Outpatient (BNV) | payer MEDICARE, SELFPAY | PROVIDERS: Admitting Provider Student in an Organized Health Care Education/Training Program; Emergency Provider Emergency Medicine; PCP Internal Medicine; Visit Provider Student in an Organized Health Care Education/Training Program | DX: E11.22 Type 2 diabetes mellitus with diabetic chronic kidney disease (principal); N18.2 Chronic kidney disease, stage 2 (mild) | CPT/HCPCS: 99223; 99232; 99239 ==

== ENCOUNTER → 2023-07-03 15:35 | Outpatient (BNV) | payer MEDICARE, SELFPAY | PROVIDERS: Admitting Provider Student in an Organized Health Care Education/Training Program; Emergency Provider Emergency Medicine; PCP Internal Medicine; Visit Provider Internal Medicine | DX: G43.109 Migraine with aura, not intractable, without status migrainosus (principal); G93.40 Encephalopathy, unspecified | CPT/HCPCS: 99222 ==

== ENCOUNTER → 2023-07-03 15:35 | Outpatient (BNV) | payer MEDICARE, SELFPAY | PROVIDERS: Admitting Provider Student in an Organized Health Care Education/Training Program; Emergency Provider Emergency Medicine; PCP Internal Medicine; Visit Provider Registered Nurse | DX: R41.0 Disorientation, unspecified (principal); R45.1 Restlessness and agitation | CPT/HCPCS: 99221 ==

== ENCOUNTER 2023-07-29 22:56 | Emergency (ER) | payer MEDICARE, SELFPAY ==
--- NOTE | ~2023-07-29 | CT_ITS ---
EXAMINATION: CT ABDOMEN AND PELVIS WITHOUT CONTRAST CLINICAL INFORMATION: Right flank pain. COMPARISON: 11/17/2022 TECHNIQUE: Multidetector volumetric imaging was performed from the superior aspect of the liver through the pubic symphysis. Sagittal and coronal reformatted images were obtained on the technologist's workstation. This CT examination was performed using dose optimization techniques as appropriate, variously including the following: *Automated exposure control *Adjustment of mA and/or kV according to patient size (this includes techniques or standardized protocols for targeted exams where dose is matched to indication/reason for exam; i.e. extremities or head) *Use of iterative reconstruction technique DLP: 1028 mGy-cm FINDINGS: LUNG BASES: Bilateral basilar pleural thickening and pleural calcifications are again seen. LIVER, GALLBLADDER, AND BILIARY TREE: The liver is normal in size, shape, and attenuation. No focal hepatic lesion or biliary ductal dilatation is present. There has been a prior cholecystectomy. PANCREAS: Unremarkable. SPLEEN: Unremarkable. ADRENAL GLANDS: Unremarkable. KIDNEYS AND URETERS: The kidneys are normal in size, shape, and attenuation. No hydronephrosis, hydroureter, or calculi seen. No perinephric stranding. BLADDER: Unremarkable. GASTROINTESTINAL TRACT: The small and large bowel are unremarkable. The appendix is not seen. ABDOMINAL WALL: No significant hernia is appreciated. LYMPH NODES: Normal. VASCULAR: There is atherosclerotic plaque of the abdominal aorta and proximal branches. PELVIC VISCERA: Unremarkable. OSSEOUS STRUCTURES: Unremarkable. CT/CT abdomen pelvis wo IV con IMPRESSION: No acute intra-abdominal process. Fleischner guidelines were followed.
--- NOTE | 2023-07-29 23:03 | ED_ITS ---
HPI - Abdominal Pain General Chief Complaint: Abdominal Pain Stated Complaint: FLANK PAIN Time Seen by Provider: 07/29/23 23:03 Source: patient Mode of arrival: EMS Limitations: no limitations History of Present Illness HPI narrative: Patient is status post cholecystectomy came here for sudden onset of right flank pain started 18:30 today no nausea no vomiting no fever no urinary symptoms patient patient had similar pain in the past with low back pain with workup negative also complaining of pain left shoulder no chest pain Related Data Home Medications Medication Instructions Recorded Confirmed blood sugar diagnostic (FreeStyle 09/28/22 06/10/23 Lite Strips) clonidine HCl 0.1 mg tablet 0.1 mg PO TID 09/28/22 07/03/23 gabapentin 300 mg capsule 300 mg PO BID@0900,1500 09/28/22 07/03/23 insulin glargine 100 unit/mL (3 53 unit subcut BID 09/28/22 07/03/23 mL) subcutaneous pen (Lantus Solostar U-100 Insulin) insulin lispro 100 unit/mL See Protocol subcut TID 09/28/22 07/03/23 subcutaneous pen pen needle, diabetic 32 gauge x 09/28/22 06/10/2305/13 (BD Ultra-Fine Micro Pen Needle) simvastatin 20 mg tablet 20 mg PO BEDTIME 09/28/22 07/03/23 ubrogepant 100 mg tablet (Ubrelvy) 100 mg PO Q2H PRN Migraine Headache 09/28/22 07/03/23 aspirin 81 mg tablet,delayed 81 mg PO DAILY 10/01/22 07/03/23 release cholecalciferol (vitamin D3) 25 25 mcg PO DAILY 10/01/22 07/03/23 mcg (1,000 unit) tablet melatonin 10 mg tablet 10 mg PO BEDTIME 10/01/22 07/03/23 gabapentin 300 mg capsule 600 mg PO BEDTIME 04/14/23 07/03/23 (Neurontin) levothyroxine 125 mcg tablet 125 mcg PO DAILY@0600 04/14/23 07/03/23 venlafaxine 37.5 mg 37.5 mg PO DAILY 07/03/23 07/03/23 capsule,extended release 24 hr Previous Rx's Medication Instructions Recorded lorazepam 0.5 mg tablet (Ativan) 0.5 mg PO BID PRN anxiety #20 tabs 02/14/23 fremanezumab-vfrm 225 mg/1.5 mL 225 mg (1.5 mL) subcut QMONTH 30 07/23/23 subcutaneous auto-injector (Ajovy) days #1.5 mL tramadol 50 mg tablet 50 mg PO Q6H PRN pain #20 tabs 07/30/23 Allergies Allergy/AdvReac Type Severity Reaction Status Date / Time Iodinated Contrast Media Allergy Severe SEDATION,TA Verified 07/29/23 23:13 [IVP DYE] CHYCARDIA azithromycin Allergy Unknown Hives Verified 07/29/23 23:13 erythromycin base Allergy Unknown HIVES Verified 07/29/23 23:13 [ERYTHROMYCIN BASE] metformin AdvReac Unknown Diarrhea Verified 07/29/23 23:13 Review of Systems Review of Systems Yes all other systems are reviewed and are negative REPLACED BY [facility] Past Medical History Medical History Type 2 diabetes mellitus CKD (chronic kidney disease) stage 2, GFR 60-89 ml/min Anxiety Migraine Obstructive sleep apnea Encephalitis Hypothyroid HTN (hypertension) HLD (hyperlipidemia) Diabetes Complicated migraine Surgical History Hx of left mastectomy Hx of cholecystectomy H/O section Family History Family History Mother Lung cancer Diabetes Depression Daughter Alcohol abuse Father FH: cholecystectomy Social History Social History Household Members: Spouse Housing: Unknown / Unable to assess Do you presently have visiting nurse or other home services: No (just finished last week) Unable to assess alcohol history related to: Unable to respond Alcohol intake: never Comment: 1 TO 1 SITTER Patient Tobacco Use Status: Never used Tobacco Smoked in Last 30 Days: No e-Cigarette/Vaping Use: Never Used Second Hand Smoke Exposure: No Use of substances other than those prescribed or required for medical reasons: No Advance Directives: Yes Advance Directives on File: Yes Advance Directives Date on File: 09/28/22 service: No Current occupational status: retired Physical Exam ED Vital Signs: Vital Signs - 24 hr 07/29/23 23:05 Temperature 97.8 F Pulse Rate 78 Respiratory Rate 18 Blood Pressure 174/73 H Pulse Oximetry 93 Oxygen Delivery Method Room Air BMI result Body Mass Index 44.4 Appearance: Alert. Oriented X3. No acute distress. Eyes: PERRLA, No Nystagmus ENT: Pharynx normal. Oral Mucosa moist Neck: Normal inspection. Neck supple. CVS: Normal heart rate and rhythm. Pulses normal. Respiratory: No respiratory distress. Equal air entry bilateral, no wheezing/rales/rhonchi Abdomen: Soft and discomfort mid abdomen no rebound tenderness or guarding Bowel sounds are present, no mass palpable, right CVA tenderness back: Diffuse lumbar spine tenderness no focal tenderness SLR negative bilateral patient able to ambulate Skin: Skin warm and dry. Normal skin color. Normal skin turgor. Extremities: No lower extremity edema. No calf tenderness Neuro: Oriented X 3. No motor deficit. Medical Decision Making Medical Decision Making [facility] Narrative: Patient nonspecific right-sided pain and low back pain CT scan negative for acute pathology labs are normal except for slightly elevated liver functions to nonspecific will check the UA UA negative for acute infection discharge patient home on pain medication Tramadol advised to follow with PCP Differential Diagnosis Differential Diagnoses: The differential diagnosis associated with the presentation includes UTI/muscular pain/kidney stone/pancreatitis/chronic back pain Lab Data [facility] Lab Attestation statement: I reviewed the patient's lab results. 07/29/23 23:27 07/29/23 23:27 Labs: Lab Results 07/29/23 07/30/23 Range/Units 23:27 01:42 WBC 10.6 (4.8-10.8) X10*3/uL RBC 4.49 (4.20-5.50) X10*6/uL Hgb 13.2 (12.0-16.0) g/dl Hct 39.0 (37.0-47.0) % MCV 86.9 (80.0-98.0) fL MCH 29.4 (27.0-33.0) pg MCHC 33.8 (31.0-35.0) g/dl RDW 12.9 (11.0-16.0) % Plt Count 278 (160-400) X10*3/uL MPV 11.6 (9.4-12.3) fL Immature Gran % (Auto) 0.4 (0.0-0.4) % Neut % (Auto) 58.5 (45-73) % Lymph % (Auto) 29.4 (20-40) % [place] % (Auto) 9.6 (2-11) % Eos % (Auto) 1.8 (0-4) % Baso % (Auto) 0.3 (0-2) % Lymph # (Auto) 3.1 (1.2-4.9) X10*3/uL [place] # (Auto) 1.0 (0.1-1.2) X10*3/uL Eos # (Auto) 0.2 (0.0-0.4) X10*3/uL Baso # (Auto) 0.0 (0.0-0.2) X10*3/uL Abs Immat Gran (auto) 0.04 H (0.00-0.03) X10*3/uL Absolute Neuts (auto) 6.2 (2.0-8.3) x10*3/uL Absolute Nucleated RBC 0.000 (0.0-0.012) X10*3/uL Nucleated RBC % (auto) 0.0 (0.0-0.2) /100WBC Sodium 142 (135-145) mmol/L Potassium 4.1 (3.3-5.1) mmol/L Chloride 103 (96-108) mmol/L Carbon Dioxide 30 H (22-29) mmol/L Anion Gap 13 (12-20) BUN 21 H (9-16) mg/dL Creatinine 1.00 (0.5-1.4) mg/dL Estim Creat Clear Calc 65.9 Estimated GFR 55 Random Glucose 170 H (60-115) mg/dL Calcium 9.4 D (8.4-10.2) mg/dL Total Bilirubin 0.9 (0.0-1.0) mg/dL AST 53 H (5-31) U/L ALT 65 H (0-31) U/L Alkaline Phosphatase 136 H (39-117) U/L Total Protein 7.2 (6.5-8.0) g/dL Albumin 3.8 (3.5-5.0) g/dL Lipase 12 (8-78) U/L Urine Color Yellow Urine Appearance Clear Urine pH 5.0 (5.0-9.0) Ur Specific [place] 1.015 (1.005-1.025) Urine Protein Negative (Neg-Trace) mg/dL Urine Glucose (UA) Negative (Negative) mg/dL Urine Ketones Negative (Negative) mg/dL Urine Blood Negative (Negative) Urine Nitrite Negative (Negative) Ur Leukocyte Esterase Negative (Negative) Independent Interpretation I performed an independent interpretation of an: CT Scan Radiology Impression Discussion of test interpretation with radiology: I have reviewed the radiologist's reading. Radiologist Impression: CT/CT abdomen pelvis wo IV con IMPRESSION: No acute intra-abdominal process. Fleischner guidelines were followed. Discharge Plan Discharge Clinical Impression: Chronic back pain Patient Disposition: Home, Self-Care Instructions: Chronic Back Pain (DC) Additional Instructions: Take pain medication as prescribed and follow-up with your PCP Your CT scan of the labs were stable Prescriptions: New tramadol 50 mg tablet 50 mg PO Q6H PRN (Reason: pain) Qty: 20 0RF No Action Ajovy Autoinjector 225 mg/1.5 mL auto-injector 225 mg subcut QMONTH 30 Days Qty: 1.5 6RF Rx Instructions: administer 225mg sc q month lorazepam [Ativan] 0.5 mg tablet 0.5 mg PO BID PRN (Reason: anxiety) Qty: 20 0RF venlafaxine 37.5 mg capsule,extended release 24hr 37.5 mg PO DAILY clonidine HCl 0.1 mg tablet 0.1 mg PO TID (DME) FreeStyle Lite Strips Strip 1 strip MISCELLANEOUS TID simvastatin 20 mg tablet 20 mg PO BEDTIME insulin lispro 100 unit/mL insulin pen See Protocol subcut TID Protocol: Insulin Correction Scale Less than or equal to 110 ---- Give (units): 0 111 to 150 Give (units): 33 151 to 200 Give (units): 37 201 to 250 Give (units): 41 251 to 300 Give (units): 43 301 to 350 Give (units): 45 Greater than 350 Give (units): 47 Call MD if Blood Glucose > : 400 Rx Instructions: inject subq 3x daily with meals per sliding scale 80-99 inject 31 units 100-149 inject 33 units 150-199 inject 37 units 200-249 inject 41 units 250-299 inject 43 units 300-349 inject 45 units 350-399 inject 47 units 400 and higher: inject 49 units and call MD insulin glargine [Lantus Solostar U-100 Insulin] 100 unit/mL (3 mL) insulin pen 53 unit subcut BID Rx Instructions: inject 50 units subq in the morning (8am) and 50 units at night (8pm) (DME) pen needle, diabetic [BD Ultra-Fine Micro Pen Needle] 32 gauge x 1/4 needle MISCELLANEOUS Ubrelvy 100 mg tablet 100 mg PO Q2H PRN (Reason: Migraine Headache) Rx Instructions: take at onset of migraine. MRX1 after 2 hours. Do not exceed 2 doses in 24 hours gabapentin 300 mg capsule 300 mg PO BID@0900,1500 Patient Comments: 8am and 2pm levothyroxine 125 mcg tablet 125 mcg PO DAILY@0600 aspirin 81 mg Tablet,Delayed Release (Dr/Ec) 81 mg PO DAILY cholecalciferol (vitamin D3) 25 mcg (1,000 unit) Tablet 25 mcg PO DAILY melatonin 10 mg Tablet 10 mg PO BEDTIME gabapentin [Neurontin] 300 mg capsule 600 mg PO BEDTIME
[2023-07-29 23:05] VITALS: BP 174/73; BP 190/70; PULSE 78; PULSE 80; RESP 18; TEMP 36.6; O2SAT 93; O2SAT 99; BMI 44.4
--- NOTE | 2023-07-29 23:05 | PC.NURSE ---
late entry- pt biba from home reporting onset of lower right flank pain that radiates into the abdomen beginning around 6pm after eating dinner. pt reports episodes of nausea and vomiting but denies diarrhea. pt reports normal PO intake. 20G placed in the right AC, labs obtained. pt normal sinus on tele 84-86pm.
[2023-07-29 23:31] LABS: MANUAL DIFF FLAG NO
[2023-07-29 23:33] LABS: Basophils Percent Auto 0.3 % (0-2); Eosinophils Absolute Auto 0.2 X10*3/uL (0.0-0.4); Eosinophils Percent Auto 1.8 % (0-4); Hemoglobin 13.2 g/dl (12.0-16.0); Imm Gran Abs Auto 0.04 X10*3/uL (0.00-0.03); Imm Gran Pct Auto 0.4 % (0.0-0.4); Lymphocytes Absolute Auto 3.1 X10*3/uL (1.2-4.9); Lymphocytes Percent Auto 29.4 % (20-40); Mean Corpuscular HGB Conc 33.8 g/dl (31.0-35.0); Mean Corpuscular Hemoglobin 29.4 pg (27.0-33.0); Mean Corpuscular Volume 86.9 fL (80.0-98.0); Mean Platelet Volume 11.6 fL (9.4-12.3); Monocytes Percent Auto 9.6 % (2-11); Neutrophils Absolute Auto 6.2 x10*3/uL (2.0-8.3); Neutrophils Percent Auto 58.5 % (45-73); Platelet Count 278 X10*3/uL (160-400); Red Blood Count 4.49 X10*6/uL (4.20-5.50); Red Cell Distribution Width 12.9 % (11.0-16.0); White Blood Count 10.6 X10*3/uL (4.8-10.8)
[2023-07-29 23:51] LABS: Alanine Aminotransferase 65 U/L (0-31); Albumin Level 3.8 g/dL (3.5-5.0); Alkaline Phosphatase 136 U/L (39-117); Anion Gap 13 (12-20); Aspartate Amino Transferase 53 U/L (5-31); Bilirubin Total 0.9 mg/dL (0.0-1.0); Blood Urea Nitrogen 21 mg/dL (9-16); Calcium 9.4 mg/dL (8.4-10.2); Carbon Dioxide 30 mmol/L (22-29); Chloride 103 mmol/L (96-108); Creatinine Clr Calc Pharmacy 65.9; Estimated Glomerular Filt Rate 55; Glucose Random 170 mg/dL (60-115); Lipase 12 U/L (8-78); Potassium 4.1 mmol/L (3.3-5.1); Sodium 142 mmol/L (135-145); Total Protein 7.2 g/dL (6.5-8.0)
[2023-07-30 01:52] LABS: Appearance Urine Clear; Color Urine Yellow; Glucose Urine UA Negative (Negative); Leukocyte Esterase Urine Negative (Negative); Nitrite Urine Negative (Negative); Specific Gravity - Urine 1.015 (1.005-1.025); Urine Blood Negative (Negative); Urine Ketones Negative (Negative); Urine Protein Negative (Neg-Trace)
[2023-07-30 02:27] VITALS: BP 146/66; PULSE 73; RESP 17; TEMP 37.1; O2SAT 95
[2023-07-30] MEDS: ondansetron HCL 4 MG/2 ML VIAL IVPUSH (02:28)
[2023-07-30] MEDS: Morphine Sulfate 4 MG/ML CARTRIDGE IVPUSH (02:28)
--- NOTE | 2023-07-30 02:30 | PC.NURSE ---
pt medicated per jul for 10/10 right flank pain.
--- NOTE | 2023-07-30 02:51 | PC.NURSE ---
per pt, pt daughter Maryann contacted to provide pt ride home.
[2023-07-30 03:33] VITALS: BP 145/59; PULSE 77; RESP 16; TEMP 36.8; O2SAT 94
[2023-07-30 03:35] VITALS: BP 145/59; PULSE 77; RESP 16; TEMP 36.8; O2SAT 94
== END 2023-07-30 03:39 | disposition home or self-care (01) ==
PROVIDERS: Emergency Provider Internal Medicine; PCP Internal Medicine
DX: R10.2 Pelvic and perineal pain (principal); Z79.899 Other long term (current) drug therapy
CPT/HCPCS: 36415; 74176; 80053; 81003; 83690; 85025; 96374; 96375; 99284; J2270; J2405

== ENCOUNTER 2023-07-31 17:19 | Emergency (ER) | payer MEDICARE, SELFPAY ==
--- NOTE | ~2023-07-31 | XR_ITS ---
EXAMINATION: Thoracic and lumbar spine. CLINICAL INDICATION: Low back pain. No trauma. COMPARISON: None recent. TECHNIQUE: 3 views lumbar spine and 3 views dorsal spine. FINDINGS: Lumbar spine: There is normal lumbar lordosis. The vertebral heights, alignment and disc heights are normal. There is a large bridging ventral osteophytes L3-L4, L2-L3 and L1-L2 disc levels. No aggressive lytic or sclerotic process seen. SI joints are symmetrical and normal. The paravertebral soft tissues are normal. Dorsal spine: There is normal thoracic kyphosis. The vertebral heights and alignment are normal. There is mild positional dextroscoliosis. No visible acute fracture, dislocation or lytic process seen. The paravertebral soft tissues are normal. XR/XR thoracic spine 2V IMPRESSION: Mild dextro scoliosis dorsal spine. No visible acute fracture or dislocation seen. Moderate ventral bridging osteophytes lumbar spine without any visible acute fracture or dislocation seen.
--- NOTE | ~2023-07-31 | XR_ITS ---
EXAMINATION: Thoracic and lumbar spine. CLINICAL INDICATION: Low back pain. No trauma. COMPARISON: None recent. TECHNIQUE: 3 views lumbar spine and 3 views dorsal spine. FINDINGS: Lumbar spine: There is normal lumbar lordosis. The vertebral heights, alignment and disc heights are normal. There is a large bridging ventral osteophytes L3-L4, L2-L3 and L1-L2 disc levels. No aggressive lytic or sclerotic process seen. SI joints are symmetrical and normal. The paravertebral soft tissues are normal. Dorsal spine: There is normal thoracic kyphosis. The vertebral heights and alignment are normal. There is mild positional dextroscoliosis. No visible acute fracture, dislocation or lytic process seen. The paravertebral soft tissues are normal. XR/XR lumbar spine 2-3V IMPRESSION: Mild dextro scoliosis dorsal spine. No visible acute fracture or dislocation seen. Moderate ventral bridging osteophytes lumbar spine without any visible acute fracture or dislocation seen.
[2023-07-31 17:32] VITALS: BP 179/71; PULSE 98; RESP 18; TEMP 36.8; O2SAT 93; BMI 42.0
--- NOTE | 2023-07-31 17:33 | ED_ITS ---
HPI - General Adult General Chief complaint: General Medical Stated complaint: Lower back pain Time Seen by Provider: 07/31/23 20:21 Source: patient and RN notes reviewed Mode of arrival: ambulatory Limitations: no limitations History of Present Illness HPI narrative: This is a 72-year-old male, the past medical history of complex migraines, insulin-dependent type 2 diabetes with neuropathy, hyperlipidemia, and hypothyroidism, presenting to the emergency department with complaints of chronic back pain. Patient denies any recent trauma or injury. She states that this pain that she has had has been chronic for many months. Denies any worsening pain. Patient was seen here in the emergency department on July 29, 2023, where she had a CT scan that was unremarkable. She was discharged on tramadol which she took which caused her to feel nauseous. She states that she has not had any chest pain, shortness breast, nausea, vomiting or diarrhea. She has an appointment with pain management on Wednesday. No numbness, tingling or weakness no saddle anesthesia. No urinary or bowel incontinence. No other complaints or concerns at this time. MD complaint: Chronic back pain Onset (ago): day(s) Severity: moderate Quality: aching Pain Consistency: constant Relieving factors: none Exacerbating factors: none Associated symptoms: denies other symptoms Treatments prior to arrival: none Related Data Home Medications Medication Instructions Recorded Confirmed blood sugar diagnostic (FreeStyle 09/28/22 06/10/23 Lite Strips) clonidine HCl 0.1 mg tablet 0.1 mg PO TID 09/28/22 07/03/23 gabapentin 300 mg capsule 300 mg PO BID@0900,1500 09/28/22 07/03/23 insulin glargine 100 unit/mL (3 53 unit subcut BID 09/28/22 07/03/23 mL) subcutaneous pen (Lantus Solostar U-100 Insulin) insulin lispro 100 unit/mL See Protocol subcut TID 09/28/22 07/03/23 subcutaneous pen pen needle, diabetic 32 gauge x 09/28/22 06/10/2305/13 (BD Ultra-Fine Micro Pen Needle) simvastatin 20 mg tablet 20 mg PO BEDTIME 09/28/22 07/03/23 ubrogepant 100 mg tablet (Ubrelvy) 100 mg PO Q2H PRN Migraine Headache 09/28/22 07/03/23 aspirin 81 mg tablet,delayed 81 mg PO DAILY 10/01/22 07/03/23 release cholecalciferol (vitamin D3) 25 25 mcg PO DAILY 10/01/22 07/03/23 mcg (1,000 unit) tablet melatonin 10 mg tablet 10 mg PO BEDTIME 10/01/22 07/03/23 gabapentin 300 mg capsule 600 mg PO BEDTIME 04/14/23 07/03/23 (Neurontin) levothyroxine 125 mcg tablet 125 mcg PO DAILY@0600 04/14/23 07/03/23 venlafaxine 37.5 mg 37.5 mg PO DAILY 07/03/23 07/03/23 capsule,extended release 24 hr Previous Rx's Medication Instructions Recorded lorazepam 0.5 mg tablet (Ativan) 0.5 mg PO BID PRN anxiety #20 tabs 02/14/23 fremanezumab-vfrm 225 mg/1.5 mL 225 mg (1.5 mL) subcut QMONTH 30 07/23/23 subcutaneous auto-injector (Ajovy) days #1.5 mL tramadol 50 mg tablet 50 mg PO Q6H PRN pain #20 tabs 07/30/23 acetaminophen 650 mg 650 mg PO Q8H PRN pain #30 tabs 07/31/23 tablet,extended release (Tylenol Arthritis Pain) lidocaine 5 % topical patch 1 patch topical Q24H #30 ea 07/31/23 Allergies Allergy/AdvReac Type Severity Reaction Status Date / Time Iodinated Contrast Media Allergy Severe SEDATION,TA Verified 07/31/23 17:31 [IVP DYE] CHYCARDIA azithromycin Allergy Unknown Hives Verified 07/31/23 17:31 erythromycin base Allergy Unknown HIVES Verified 07/31/23 17:31 [ERYTHROMYCIN BASE] metformin AdvReac Unknown Diarrhea Verified 07/31/23 17:31 Review of Systems 2 Review of Systems: Yes all other systems are reviewed and are negative Constitutional: Constitutional: Reports as per [facility] Past Medical History Medical History Type 2 diabetes mellitus CKD (chronic kidney disease) stage 2, GFR 60-89 ml/min Anxiety Migraine Obstructive sleep apnea Encephalitis Hypothyroid HTN (hypertension) HLD (hyperlipidemia) Diabetes Complicated migraine Surgical History Hx of left mastectomy Hx of cholecystectomy H/O section Family History Family History Mother Lung cancer Diabetes Depression Daughter Alcohol abuse Father FH: cholecystectomy Social History Social History Household Members: Spouse Housing: Unknown / Unable to assess Do you presently have visiting nurse or other home services: No (just finished last week) Unable to assess alcohol history related to: Unable to respond Alcohol intake: never Comment: 1 TO 1 SITTER Patient Tobacco Use Status: Never used Tobacco Smoked in Last 30 Days: No e-Cigarette/Vaping Use: Never Used Second Hand Smoke Exposure: No Use of substances other than those prescribed or required for medical reasons: No Advance Directives: Yes Advance Directives on File: Yes Advance Directives Date on File: 09/28/22 service: No Current occupational status: retired Physical Exam ED Vital Signs: Vital Signs - 24 hr 07/31/23 17:32 07/31/23 19:04 07/31/23 22:10 Temperature 98.3 F 98.6 F Pulse Rate 98 78 76 Respiratory Rate 18 18 17 Blood Pressure 179/71 H 180/81 H 140/71 H Pulse Oximetry 93 95 94 Oxygen Delivery Method Room Air Room Air 07/31/23 23:18 07/31/23 23:49 Temperature 98.3 F 98.3 F Pulse Rate 73 73 Respiratory Rate 14 14 Blood Pressure 150/72 H 150/72 H Pulse Oximetry 97 97 Oxygen Delivery Method Room Air BMI result Body Mass Index 42.0 Const General: cooperative, comfortable and no acute distress Orientation/consciousness: patient oriented x3 Limitations: no limitations [facility] Head: Yes normal to inspection, Yes normocephalic and Yes atraumatic Ears: hearing grossly normal bilaterally General nose exam: Normal external nose present Face and sinus: Yes normal facial exam Mouth: Normal oral and palatal mucosa present, oropharynx normal and moist mucous membranes Throat: Yes posterior oropharynx normal Eyes General: appearance normal, both eyes and all related structures Eyelids: Yes eyelids normal Conjunctivae: conjunctivae normal Sclerae: sclerae normal Pupils: Equal, round and reactive pupils present EOM: EOMs intact bilaterally Neck Neck: Yes normal visual inspection, Yes full ROM and Yes no lymphadenopathy Lymphatic: no lymphadenopathy noted Chest Chest palpation & inspection: normal inspection of the chest Resp Effort & Inspection: normal respiratory effort and able to speak in complete sentences Auscultation: clear to auscultation bilaterally, no crackles, no rales, no rhonchi and no wheezes Cardio Rate: regular rate Rhythm: regular rhythm Heart sounds: S1 normal heart sound present and S2 normal heart sound present GI Inspection: Yes normal to inspection General: Yes no CVA tenderness Back/Spine/Pelvis Other: Patient is diffusely tender throughout entire back without any specific point tenderness. Strength 5/5 in lower extremities. Patient is ambulatory with steady gait. Back: no CVA tenderness Cervical Spine: normal cervical lordosis Thoracic/Lumbar Spine: thoracic and lumbar spine normal to inspection Skin General skin exam: no rashes or lesions noted Trauma: no lacerations or abrasions Wounds: no wounds Neuro General: patient oriented x3 and moves all extremities Cranial nerves: Yes Equal, round and reactive pupils present Extrem General: Yes normal to inspection Right upper extremity: normal to inspection Left upper extremity: normal to inspection Right lower extremity: normal to inspection Left lower extremity: normal to inspection Course Course Course Narrative: RME: 72 yo female here for eval of bilateral low back pain and nausea x3 days. she was evaluated here 2 days ago for same with negative CT abd/pelvis and uninfected urine. she was d/c home w/ tramadol for muscle pain. hx of chronic back pain. no hx of spinal surgeries. follows w/ PCP for this. took ativan at 1700 today for migraine. denies fever, chills, bowel/bladder incontinence or retention, numbness/tingling/weakness of LEs, saddle anesthesia, dysuria or hematuria. no hx of renal stones. denies trauma/injruy/fall. xrs and UA ordered Full HPI, ROS and PE to be performed by the primary ED provider. Reevaluation(s) Reevaluation #1: Labs return, slight leukocytosis at 12.8, H&H stable. Total bili 1.3, slight liver transaminases noted, appears to be around her baseline. Negative troponin, lipase 6. X-rays otherwise unremarkable. Patient's symptoms likely due to chronic back pain. Given that she has had this same pain for many months, and patient had a normal CT of her abdomen and pelvis 3 days ago, will not repeat. Time: 23:10 Medications Administered Discontinued Medications Generic Name Dose Route Start Last Admin Trade Name Sheila PRN Reason Stop Dose Admin Acetaminophen 650 mg 07/31/23 21:00 07/31/23 21:48 Acetaminophen 325 Mg Tablet PO 07/31/23 21:01 650 mg ONCE ONE Administration Lidocaine 1 patch 07/31/23 21:00 07/31/23 21:49 Lidocaine 4 % Patch Adh..Patch TRANSDERMA 07/31/23 21:01 1 patch ONCE ONE Administration Protocol Medical Decision Making Medical Decision Making MDM Narrative: This is a 72-year-old female presenting to the emergency department with complaints of chronic back pain. On arrival, patient nontoxic appearing, slightly hypertensive at 179/71. Likely secondary to pain. Patient is tearful, stating that her back pain has been debilitating and states that she has had this for many months. She was seen several days ago where she had a negative CT scan of her abdomen. She was discharged on tramadol which she took however states that she did not like the side effects. She is here for pain management. She has a pain management appointment on Wednesday. X-rays were obtained, revealing no acute abnormalities. Basic labs were performed revealing slight leukocytosis at 12.8, slight elevation in liver enzymes and alk-phos, appears to be her baseline. Lipase 6. Urine does not appear to be infected. I discussed workup with patient as well as at bedside. I explained to them that tramadol is a okay pain medication and any she thinks stronger for pain will cause her to have worsening side effects. I encouraged continuing Tylenol as well as Lidoderm patches. Encouraged to follow-up with primary care physician and chronic pain management facility. They understand and agree with plan. Patient given return precautions. This patient presents with back pain most consistent with chronic back pain Differential diagnoses includes lumbago versus musculoskeletal spasm / strain versus sciatica.No back pain red flags on history or physical. Presentation not consistent with malignancy (lack of history of malignancy, lack of B symptoms), fracture (no trauma, no bony tenderness to palpation), cauda equina (no bowel or urinary incontinence/retention, no saddle anesthesia, no distal weakness), pyelonephritis (afebrile, no CVAT, no urinary symptoms). Patient stable for discharge. Differential Diagnosis Differential Diagnoses: The differential diagnosis associated with the presentation includes See above Admission/Observation Consideration of admission/observation: Escalation of care including admission/observation considered Escalation of care including admission/observation considered however given workup today not warranted at this time. Lab Data MDM Lab Attestation statement: I reviewed the patient's lab results. Slight leukocytosis at 12.8, stable H&H, elevation in liver transaminases, appears to be at her baseline. Negative troponin, lipase 6, urine does not appear to be infected. 07/31/23 21:55 07/31/23 21:55 Labs: Lab Results 07/31/23 07/31/23 Range/Units 21:55 23:46 WBC 12.8 H (4.8-10.8) X10*3/uL RBC 4.60 (4.20-5.50) X10*6/uL Hgb 13.4 (12.0-16.0) g/dl Hct 40.2 (37.0-47.0) % MCV 87.4 (80.0-98.0) fL MCH 29.1 (27.0-33.0) pg MCHC 33.3 (31.0-35.0) g/dl RDW 12.8 (11.0-16.0) % Plt Count 298 (160-400) X10*3/uL MPV 11.1 (9.4-12.3) fL Immature Gran % (Auto) 0.5 H (0.0-0.4) % Neut % (Auto) 66.1 (45-73) % Lymph % (Auto) 25.4 (20-40) % Ritchie % (Auto) 6.7 (2-11) % Eos % (Auto) 1.0 (0-4) % Baso % (Auto) 0.3 (0-2) % Lymph # (Auto) 3.3 (1.2-4.9) X10*3/uL Ritchie # (Auto) 0.9 (0.1-1.2) X10*3/uL Eos # (Auto) 0.1 (0.0-0.4) X10*3/uL Baso # (Auto) 0.0 (0.0-0.2) X10*3/uL Abs Immat Gran (auto) 0.06 H (0.00-0.03) X10*3/uL Absolute Neuts (auto) 8.5 H (2.0-8.3) x10*3/uL Absolute Nucleated RBC 0.000 (0.0-0.012) X10*3/uL Nucleated RBC % (auto) 0.0 (0.0-0.2) /100WBC Sodium 140 (135-145) mmol/L Potassium 4.7 (3.3-5.1) mmol/L Chloride 103 (96-108) mmol/L Carbon Dioxide 27 (22-29) mmol/L Anion Gap 15 (12-20) BUN 19 H (9-16) mg/dL Creatinine 0.91 (0.5-1.4) mg/dL Estim Creat Clear Calc 70.1 Estimated GFR > 60 Random Glucose 182 H (60-115) mg/dL Calcium 9.8 (8.4-10.2) mg/dL Magnesium 1.9 (1.6-2.6) mg/dL Total Bilirubin 1.3 H (0.0-1.0) mg/dL Direct Bilirubin 0.4 (0.0-0.5) mg/dL AST 74 H (5-31) U/L ALT 105 H (0-31) U/L Alkaline Phosphatase 159 H (39-117) U/L Troponin I High Sens < 2.7 (<3.5-17.0) ng/L Total Protein 7.4 (6.5-8.0) g/dL Albumin 3.9 (3.5-5.0) g/dL Lipase 6 L (8-78) U/L Urine Color Yellow Urine Appearance Clear Urine pH 5.0 (5.0-9.0) Ur Specific [place] 1.015 (1.005-1.025) Urine Protein Negative (Neg-Trace) mg/dL Urine Glucose (UA) Negative (Negative) mg/dL Urine Ketones Negative (Negative) mg/dL Urine Blood Negative (Negative) Urine Nitrite Negative (Negative) Ur Leukocyte Esterase Negative (Negative) Independent Interpretation I performed an independent interpretation of an: EKG Interpretation: EKG normal sinus rhythm at a ventricular rate of 81 beats per minute, CT interval 170, QT QTC 392/455. No ST elevation or depression. Radiology Impression Discussion of test interpretation with radiology: I have reviewed the radiologist's reading. Radiologist Impression: EXAMINATION: Thoracic and lumbar spine. CLINICAL INDICATION: Low back pain. No trauma. COMPARISON: None recent. TECHNIQUE: 3 views lumbar spine and 3 views dorsal spine. FINDINGS: Lumbar spine: There is normal lumbar lordosis. The vertebral heights, alignment and disc heights are normal. There is a large bridging ventral osteophytes L3-L4, L2-L3 and L1-L2 disc levels. No aggressive lytic or sclerotic process seen. SI joints are symmetrical and normal. The paravertebral soft tissues are normal. Dorsal spine: There is normal thoracic kyphosis. The vertebral heights and alignment are normal. There is mild positional dextroscoliosis. No visible acute fracture, dislocation or lytic process seen. The paravertebral soft tissues are normal. XR/XR thoracic spine 2V IMPRESSION: Mild dextro scoliosis dorsal spine. No visible acute fracture or dislocation seen. Moderate ventral bridging osteophytes lumbar spine without any visible acute fracture or dislocation seen. Dictated By: Arsh Méndez MD Discharge Plan Discharge Clinical Impression: Chronic back pain Patient Disposition: Home, Self-Care Instructions: Chronic Back Pain (DC) Additional Instructions: Your seen in the emergency department due to chronic back pain. Please follow-up with your chronic pain specialist, , Wednesday to see if they are able to see you sooner. Continue all at-home medications as directed. You may take Tylenol as well as use lidocaine patches as needed for pain. Drink plenty of fluids and get plenty of rest. Gentle heat, massage, and stretching can also help with your symptoms. If any new or worsening symptoms occur including but not limited to chest pain, shortness of breath, worsening back pain, fevers, chills, please return for re- evaluation. Prescriptions: New lidocaine 5 % adhesive patch,medicated 1 patch topical Q24H Qty: 30 0RF Rx Instructions: leave on most painful area for up to 12 hrs acetaminophen [Tylenol Arthritis Pain] 650 mg tablet extended release 650 mg PO Q8H PRN (Reason: pain) Qty: 30 0RF No Action Ajovy Autoinjector 225 mg/1.5 mL auto-injector 225 mg subcut QMONTH 30 Days Qty: 1.5 6RF Rx Instructions: administer 225mg sc q month lorazepam [Ativan] 0.5 mg tablet 0.5 mg PO BID PRN (Reason: anxiety) Qty: 20 0RF venlafaxine 37.5 mg capsule,extended release 24hr 37.5 mg PO DAILY tramadol 50 mg tablet 50 mg PO Q6H PRN (Reason: pain) Qty: 20 0RF clonidine HCl 0.1 mg tablet 0.1 mg PO TID (DME) FreeStyle Lite Strips Strip 1 strip MISCELLANEOUS TID simvastatin 20 mg tablet 20 mg PO BEDTIME insulin lispro 100 unit/mL insulin pen See Protocol subcut TID Protocol: Insulin Correction Scale Less than or equal to 110 ---- Give (units): 0 111 to 150 Give (units): 33 151 to 200 Give (units): 37 201 to 250 Give (units): 41 251 to 300 Give (units): 43 301 to 350 Give (units): 45 Greater than 350 Give (units): 47 Call MD if Blood Glucose > : 400 Rx Instructions: inject subq 3x daily with meals per sliding scale 80-99 inject 31 units 100-149 inject 33 units 150-199 inject 37 units 200-249 inject 41 units 250-299 inject 43 units 300-349 inject 45 units 350-399 inject 47 units 400 and higher: inject 49 units and call insulin glargine [Lantus Solostar U-100 Insulin] 100 unit/mL (3 mL) insulin pen 53 unit subcut BID Rx Instructions: inject 50 units subq in the morning (8am) and 50 units at night (8pm) (DME) pen needle, diabetic [BD Ultra-Fine Micro Pen Needle] 32 gauge x 1/4 needle MISCELLANEOUS Ubrelvy 100 mg tablet 100 mg PO Q2H PRN (Reason: Migraine Headache) Rx Instructions: take at onset of migraine. MRX1 after 2 hours. Do not exceed 2 doses in 24 hours gabapentin 300 mg capsule 300 mg PO BID@0900,1500 Patient Comments: 8am and 2pm levothyroxine 125 mcg tablet 125 mcg PO DAILY@0600 aspirin 81 mg Tablet,Delayed Release (Dr/Ec) 81 mg PO DAILY cholecalciferol (vitamin D3) 25 mcg (1,000 unit) Tablet 25 mcg PO DAILY melatonin 10 mg Tablet 10 mg PO BEDTIME gabapentin [Neurontin] 300 mg capsule 600 mg PO BEDTIME Interventions: ED Discharge Assessment Last Done: 07/31/23 23:49 Discharge Date/Time: 08/01/23 00:18
[2023-07-31 19:04] VITALS: BP 180/81; PULSE 78; RESP 18; O2SAT 95
--- NOTE | 2023-07-31 19:17 | PC.NURSE ---
Assumed care of pt. Pt kying on stretcher on R side, c/o chronic back and side pain. Per present and pt, pain is chronic, has appt with Pain management per PCP next Wednesday. Sts tramadol rx made her sick from last visit 2 days [employer], seeking different pain medication.
--- NOTE | 2023-07-31 21:00 | ECG_ITS ---
Test Reason : GEN MED Blood Pressure : / mmHG Vent. Rate : 081 BPM Atrial Rate : 081 BPM P-R Int : 170 ms QRS Dur : 102 ms QT Int : 392 ms P-R-T Axes : 034 049 045 degrees QTc Int : 455 ms Normal sinus rhythm Minimal voltage criteria for LVH, may be normal variant ( Butler product ) Borderline ECG When compared with ECG of 03-JUL-2023 10:29, No significant change was found Referred By: Negin Maxwell Electronically Signed By:NICHELLE DREW
[2023-07-31] MEDS: Acetaminophen 325 MG TABLET 650 MG PO (21:48)
[2023-07-31] MEDS: Lidocaine 4 % Patch ADH..PATCH 1 PATCH TRANSDERMA (21:49)
[2023-07-31 21:59] LABS: MANUAL DIFF FLAG NO
[2023-07-31 22:00] LABS: Basophils Percent Auto 0.3 % (0-2); Eosinophils Absolute Auto 0.1 X10*3/uL (0.0-0.4); Hematocrit 40.2 % (37.0-47.0); Hemoglobin 13.4 g/dl (12.0-16.0); Imm Gran Abs Auto 0.06 X10*3/uL (0.00-0.03); Imm Gran Pct Auto 0.5 % (0.0-0.4); Lymphocytes Absolute Auto 3.3 X10*3/uL (1.2-4.9); Lymphocytes Percent Auto 25.4 % (20-40); Mean Corpuscular HGB Conc 33.3 g/dl (31.0-35.0); Mean Corpuscular Hemoglobin 29.1 pg (27.0-33.0); Mean Corpuscular Volume 87.4 fL (80.0-98.0); Mean Platelet Volume 11.1 fL (9.4-12.3); Monocytes Absolute Auto 0.9 X10*3/uL (0.1-1.2); Monocytes Percent Auto 6.7 % (2-11); Neutrophils Absolute Auto 8.5 x10*3/uL (2.0-8.3); Neutrophils Percent Auto 66.1 % (45-73); Platelet Count 298 X10*3/uL (160-400); Red Cell Distribution Width 12.8 % (11.0-16.0); White Blood Count 12.8 X10*3/uL (4.8-10.8)
[2023-07-31 22:10] VITALS: BP 140/71; PULSE 76; RESP 17; TEMP 37; O2SAT 94
[2023-07-31 22:15] LABS: Alanine Aminotransferase 105 U/L (0-31); Albumin Level 3.9 g/dL (3.5-5.0); Alkaline Phosphatase 159 U/L (39-117); Anion Gap 15 (12-20); Aspartate Amino Transferase 74 U/L (5-31); Bilirubin Direct 0.4 mg/dL (0.0-0.5); Bilirubin Total 1.3 mg/dL (0.0-1.0); Blood Urea Nitrogen 19 mg/dL (9-16); Calcium 9.8 mg/dL (8.4-10.2); Carbon Dioxide 27 mmol/L (22-29); Chloride 103 mmol/L (96-108); Creatinine Clr Calc Pharmacy 70.1; Estimated Glomerular Filt Rate > 60; Glucose Random 182 mg/dL (60-115); Lipase 6 U/L (8-78); Magnesium 1.9 mg/dL (1.6-2.6); Potassium 4.7 mmol/L (3.3-5.1); Sodium 140 mmol/L (135-145); Total Protein 7.4 g/dL (6.5-8.0)
[2023-07-31 22:25] LABS: Troponin-I High Sensitivity < 2.7 ng/L (<3.5-17.0)
[2023-07-31 23:18] VITALS: BP 150/72; PULSE 73; RESP 14; TEMP 36.8; O2SAT 97
[2023-07-31 23:49] VITALS: BP 150/72; PULSE 73; RESP 14; TEMP 36.8; O2SAT 97
[2023-07-31 23:53] LABS: Appearance Urine Clear; Color Urine Yellow; Glucose Urine UA Negative (Negative); Leukocyte Esterase Urine Negative (Negative); Nitrite Urine Negative (Negative); Specific Gravity - Urine 1.015 (1.005-1.025); Urine Blood Negative (Negative); Urine Ketones Negative (Negative); Urine Protein Negative (Neg-Trace)
== END 2023-08-01 00:18 | disposition home or self-care (01) ==
PROVIDERS: Physician Assistant Medical; Emergency Provider Emergency Medicine; PCP Internal Medicine
DX: M54.50 Low back pain, unspecified (principal); M54.6 Pain in thoracic spine; E11.9 Type 2 diabetes mellitus without complications; Z79.4 Long term (current) use of insulin; Z79.899 Other long term (current) drug therapy
CPT/HCPCS: 36415; 72070; 72100; 80048; 80076; 81003; 83690; 83735; 84484; 85025; 93005; 99283; 99285

== ENCOUNTER → 2023-07-31 21:00 | Outpatient (BNV) | payer MEDICARE, SELFPAY | PROVIDERS: Emergency Provider Emergency Medicine; PCP Internal Medicine; Visit Provider Internal Medicine | DX: R94.31 Abnormal electrocardiogram [ECG] [EKG] (principal) | CPT/HCPCS: 93010 ==

== ENCOUNTER 2023-08-01 20:12 | Emergency (ER) | payer MEDICARE, SELFPAY ==
--- NOTE | 2023-08-01 | ECG_ITS ---
Test Reason : ams Blood Pressure : / mmHG Vent. Rate : 098 BPM Atrial Rate : 098 BPM P-R Int : 158 ms QRS Dur : 092 ms QT Int : 378 ms P-R-T Axes : -04 036 012 degrees QTc Int : 482 ms Normal sinus rhythm Left ventricular hypertrophy with repolarization abnormality ( Clay product ) Abnormal ECG When compared with ECG of 31-JUL-2023 21:42, No significant change was found Referred By: Generic ED Physician Electronically Signed By:Sebastian Nguyễn
[2023-08-01 20:21] VITALS: BP 105/45; BP 154/78; PULSE 97; PULSE 98; RESP 18; TEMP 36.7; O2SAT 95; O2SAT 97; BMI 37.7
--- NOTE | 2023-08-01 20:40 | PC.NURSE ---
pt comes to ed, aox3, with weakness and difficulty walking and talking. pt is able to answer yes or no questions but is not able to elaborate on what brings them in. pt tearful. pts arrived and explained that pt lost motor control at about 1500 and was no longer able to walk. reports history of similar episodes and states that pt has a history of complex migraines that present similarly. Per , the mechanical fall at home was due to these weakness symptoms. pt is noted to have some weakness on the right side compared to the left, grasps slightly unequal. pt is able to raise both arms and above her head. Smile equal. notified of pt's presentation in ED.
[2023-08-01 22:22] LABS: MANUAL DIFF FLAG NO
[2023-08-01 22:23] LABS: Basophils Percent Auto 0.3 % (0-2); Eosinophils Absolute Auto 0.2 X10*3/uL (0.0-0.4); Eosinophils Percent Auto 1.3 % (0-4); Hematocrit 43.9 % (37.0-47.0); Hemoglobin 14.7 g/dl (12.0-16.0); Imm Gran Abs Auto 0.05 X10*3/uL (0.00-0.03); Imm Gran Pct Auto 0.4 % (0.0-0.4); Lymphocytes Absolute Auto 2.7 X10*3/uL (1.2-4.9); Lymphocytes Percent Auto 24.1 % (20-40); Mean Corpuscular HGB Conc 33.5 g/dl (31.0-35.0); Mean Corpuscular Hemoglobin 29.3 pg (27.0-33.0); Mean Corpuscular Volume 87.5 fL (80.0-98.0); Mean Platelet Volume 11.1 fL (9.4-12.3); Monocytes Percent Auto 8.6 % (2-11); Neutrophils Absolute Auto 7.4 x10*3/uL (2.0-8.3); Neutrophils Percent Auto 65.3 % (45-73); Platelet Count 323 X10*3/uL (160-400); Red Blood Count 5.02 X10*6/uL (4.20-5.50); Red Cell Distribution Width 12.9 % (11.0-16.0); White Blood Count 11.3 X10*3/uL (4.8-10.8)
--- NOTE | 2023-08-01 22:26 | PC.NURSE ---
this rn assumed care of pt. this rn noted pt to have mastectomy of the left breast, no Blood pressure/lab draws. this rn noted EMS line in left AC, left AC IV discontinued, new access established in the right AC, labs obtained and sent to lab.
[2023-08-01 22:27] VITALS: BP 144/69; PULSE 75; RESP 15; TEMP 37; O2SAT 94
[2023-08-01 22:32] LABS: Ammonia 23 umol/L (13-55)
[2023-08-01 22:35] LABS: Prothrombin Time 11.9 SEC (11.1-13.3)
[2023-08-01 22:43] LABS: Alanine Aminotransferase 89 U/L (0-31); Albumin Level 3.9 g/dL (3.5-5.0); Alkaline Phosphatase 160 U/L (39-117); Anion Gap 15 (12-20); Aspartate Amino Transferase 60 U/L (5-31); Bilirubin Direct 0.4 mg/dL (0.0-0.5); Bilirubin Total 1.1 mg/dL (0.0-1.0); Blood Urea Nitrogen 19 mg/dL (9-16); Calcium 9.5 mg/dL (8.4-10.2); Carbon Dioxide 25 mmol/L (22-29); Chloride 105 mmol/L (96-108); Creatinine Clr Calc Pharmacy 63.2; Estimated Glomerular Filt Rate 58; Ethanol < 10 mg/dL; Glucose Random 145 mg/dL (60-115); Lipase 8 U/L (8-78); Magnesium 1.9 mg/dL (1.6-2.6); Potassium 4.2 mmol/L (3.3-5.1); Sodium 141 mmol/L (135-145); Total Protein 7.7 g/dL (6.5-8.0)
[2023-08-01 22:46] LABS: B Type Natriuretic Peptide < 10 pg/mL (<100)
[2023-08-01 22:50] LABS: Troponin-I High Sensitivity < 2.7 ng/L (<3.5-17.0)
--- NOTE | 2023-08-02 00:11 | ED.GENADULT ---
HPI - General Adult General Chief complaint: Fall Stated complaint: witnessed fall, AMS, recent discharge Time Seen by Provider: 08/01/23 20:43 Source: patient, family and EMS Mode of arrival: EMS Limitations: other History of Present Illness HPI narrative: Patient comes to the emergency room via ambulance from home. According to EMS, the family reported that the patient had fallen. However, patient is awake, alert and oriented, states that she did not fall. Patient's is at bedside, states that earlier today patient was doing well, he went out of the house for an hour to do grocery shopping, when he came back, patient was crying and seemed confused. According to the patient's , patient has had multiple of these episodes where she has stroke-like symptoms along with a migraine headache. Then symptoms resolve. The patient's states that sometimes she has stroke-like symptoms without any headache. Three weeks ago, patient was discharged from the hospital, patient was diagnosed with complex migraine with encephalopathy. Today, patient complaining of chronic right arm pain. Patient denies falling or hurting her arm today. Patient denies having headache at this time. Related Data Home Medications Medication Instructions Recorded Confirmed blood sugar diagnostic (FreeStyle 09/28/22 06/10/23 Lite Strips) clonidine HCl 0.1 mg tablet 0.1 mg PO TID 09/28/22 07/03/23 gabapentin 300 mg capsule 300 mg PO BID@0900,1500 09/28/22 07/03/23 insulin glargine 100 unit/mL (3 53 unit subcut BID 09/28/22 07/03/23 mL) subcutaneous pen (Lantus Solostar U-100 Insulin) insulin lispro 100 unit/mL See Protocol subcut TID 09/28/22 07/03/23 subcutaneous pen pen needle, diabetic 32 gauge x 09/28/22 06/10/2305/13 (BD Ultra-Fine Micro Pen Needle) simvastatin 20 mg tablet 20 mg PO BEDTIME 09/28/22 07/03/23 ubrogepant 100 mg tablet (Ubrelvy) 100 mg PO Q2H PRN Migraine Headache 09/28/22 07/03/23 aspirin 81 mg tablet,delayed 81 mg PO DAILY 10/01/22 07/03/23 release cholecalciferol (vitamin D3) 25 25 mcg PO DAILY 10/01/22 07/03/23 mcg (1,000 unit) tablet melatonin 10 mg tablet 10 mg PO BEDTIME 10/01/22 07/03/23 gabapentin 300 mg capsule 600 mg PO BEDTIME 04/14/23 07/03/23 (Neurontin) levothyroxine 125 mcg tablet 125 mcg PO DAILY@0600 04/14/23 07/03/23 venlafaxine 37.5 mg 37.5 mg PO DAILY 07/03/23 07/03/23 capsule,extended release 24 hr Previous Rx's Medication Instructions Recorded lorazepam 0.5 mg tablet (Ativan) 0.5 mg PO BID PRN anxiety #20 tabs 02/14/23 fremanezumab-vfrm 225 mg/1.5 mL 225 mg (1.5 mL) subcut QMONTH 30 07/23/23 subcutaneous auto-injector (Ajovy) days #1.5 mL tramadol 50 mg tablet 50 mg PO Q6H PRN pain #20 tabs 07/30/23 acetaminophen 650 mg 650 mg PO Q8H PRN pain #30 tabs 07/31/23 tablet,extended release (Tylenol Arthritis Pain) lidocaine 5 % topical patch 1 patch topical Q24H #30 ea 07/31/23 Allergies Allergy/AdvReac Type Severity Reaction Status Date / Time Iodinated Contrast Media Allergy Severe SEDATION,TA Verified 08/01/23 20:21 [IVP DYE] CHYCARDIA azithromycin Allergy Unknown Hives Verified 08/01/23 20:21 erythromycin base Allergy Unknown HIVES Verified 08/01/23 20:21 [ERYTHROMYCIN BASE] metformin AdvReac Unknown Diarrhea Verified 08/01/23 20:21 Review of Systems Review of Systems: Constitutional : No Weight loss, No Fever, No Chills, No Night Sweats, No Fatigue, No Malaise ENT/Mouth : No Hearing loss, No Ear Pain, No Nasal Congestion, No Sinus Pain, No Hoarseness, No sore throat, No Rhinorrhea, No Swallowing Difficulty Eyes: No Eye Pain, No Swelling, No Redness, No Foreign Body, No Discharge, No Vision Changes Cardiovascular : No Chest Pain, No SOB, No Dyspnea on Exertion, No Orthopnea, No Edema, No Palpitations Respiratory : No Cough, No Sputum, No Wheezing, No Smoke Exposure, No Dyspnea Gastrointestinal : No Nausea, No Vomiting, No Diarrhea, No Constipation, No abdominal Pain, No Hematochezia, No Melena Genitourinary : no irregular bleeding, No Dysuria, No Urinary Frequency, No Hematuria, No Urinary Incontinence, No Urgency, No Flank Pain, No Urinary Flow Changes, No Hesitancy Musculoskeletal : Patient complaining of chronic right arm pain, No Myalgias, No Joint Swelling Skin : No Skin Lesions, No rash Neuro : No Weakness, No Numbness, No Paresthesias, No Loss of Consciousness, No Dizziness, No Headache Psych : No Anxiety/Panic, No Depression, No SI/HI/AH/VH, No Social Issues, Heme/Lymph: No Bruising, No Bleeding,No Lymphadenopathy Endocrine : No Polyuria, No Polydipsia, No Temperature Intolerance PMFSH Past Medical History Medical History Type 2 diabetes mellitus CKD (chronic kidney disease) stage 2, GFR 60-89 ml/min Anxiety Migraine Obstructive sleep apnea Encephalitis Hypothyroid HTN (hypertension) HLD (hyperlipidemia) Diabetes Complicated migraine Surgical History Hx of left mastectomy Hx of cholecystectomy H/O section Family History Family History Mother Lung cancer Diabetes Depression Daughter Alcohol abuse Father FH: cholecystectomy Social History Social History Household Members: Spouse Housing: Unknown / Unable to assess Do you presently have visiting nurse or other home services: No (just finished last week) Unable to assess alcohol history related to: Unable to respond Alcohol intake: never Comment: 1 TO 1 SITTER Patient Tobacco Use Status: Never used Tobacco Smoked in Last 30 Days: No e-Cigarette/Vaping Use: Never Used Second Hand Smoke Exposure: No Use of substances other than those prescribed or required for medical reasons: No Advance Directives: Yes Advance Directives on File: Yes Advance Directives Date on File: 09/28/22 service: No Current occupational status: retired Physical Exam ED Vital Signs: Vital Signs - 24 hr 08/01/23 20:21 08/01/23 22:27 08/02/23 00:29 Temperature 98.1 F 98.6 F 98.8 F Pulse Rate 98 75 82 Respiratory Rate 18 15 15 Blood Pressure 154/78 H 144/69 H 177/82 H Pulse Oximetry 95 94 96 Oxygen Delivery Method Room Air Room Air Room Air BMI result Body Mass Index 37.7 Const Other: Appearance: Alert. Oriented X3. No acute distress. Eyes: Pupils equal, round and reactive to light. ENT: Pharynx normal. Neck: Normal inspection. Neck supple. No lymph nodes noted. No crepitus CVS: Normal heart rate and rhythm. Pulses normal. Normal S1 and S2 Respiratory: No respiratory distress. Breath sounds normal. No Wheezing. No rales Abdomen: Soft and nontender. No rigidity. No distention. Skin: Skin warm and dry. Normal skin color. Normal skin turgor. Extremities: No lower extremity edema. No Lacerations. No Rash Neuro: Oriented X 3. No motor deficit. No sensory deficit. Moving all extremities. No slurred speech. CN 2 through 12 grossly intact Psych: calm, cooperative, very anxious Course Course Course Narrative: -patient has history of multiple this episodes. At this time, patient does not have a headache. Patient is answering questions appropriately. Patient denies falling -patient complaining of right arm pain, no chest pain, no headache Medical Decision Making Medical Decision Making [facility] Narrative: -my interpretation of labs: White blood cell count 11.3, likely reactive leukocytosis., chemistry within normal limits, LFTs slightly elevated, chronic, troponin negative, BNP negative -patient was ambulated around the emergency room with a walker, patient able to do it by herself without assistance. -at 01:23, patient's urinalysis became available, no UTI. Patient has been ambulating around the emergency room with her walker. Patient no longer confused. Alert and oriented x3 Differential Diagnosis Differential Diagnoses: The differential diagnosis associated with the presentation includes (Complex migraine, encephalopathy, anxiety) Admission/Observation Consideration of admission/observation: Escalation of care including admission/observation considered (Given patient's initial presentation, patient was considered) Lab Data [facility] Lab Attestation statement: I reviewed the patient's lab results. 08/01/23 22:17 08/01/23 22:17 Labs: Lab Results 08/01/23 08/02/23 Range/Units 22:17 00:32 WBC 11.3 H (4.8-10.8) X10*3/uL RBC 5.02 (4.20-5.50) X10*6/uL Hgb 14.7 (12.0-16.0) g/dl Hct 43.9 (37.0-47.0) % MCV 87.5 (80.0-98.0) fL MCH 29.3 (27.0-33.0) pg MCHC 33.5 (31.0-35.0) g/dl RDW 12.9 (11.0-16.0) % Plt Count 323 (160-400) X10*3/uL MPV 11.1 (9.4-12.3) fL Immature Gran % (Auto) 0.4 (0.0-0.4) % Neut % (Auto) 65.3 (45-73) % Lymph % (Auto) 24.1 (20-40) % [place] % (Auto) 8.6 (2-11) % Eos % (Auto) 1.3 (0-4) % Baso % (Auto) 0.3 (0-2) % Lymph # (Auto) 2.7 (1.2-4.9) X10*3/uL [place] # (Auto) 1.0 (0.1-1.2) X10*3/uL Eos # (Auto) 0.2 (0.0-0.4) X10*3/uL Baso # (Auto) 0.0 (0.0-0.2) X10*3/uL Abs Immat Gran (auto) 0.05 H (0.00-0.03) X10*3/uL Absolute Neuts (auto) 7.4 (2.0-8.3) x10*3/uL Absolute Nucleated RBC 0.000 (0.0-0.012) X10*3/uL Nucleated RBC % (auto) 0.0 (0.0-0.2) /100WBC PT 11.9 (11.1-13.3) SEC INR 1.0 (0.9-1.1) Sodium 141 (135-145) mmol/L Potassium 4.2 (3.3-5.1) mmol/L Chloride 105 (96-108) mmol/L Carbon Dioxide 25 (22-29) mmol/L Anion Gap 15 (12-20) BUN 19 H (9-16) mg/dL Creatinine 0.95 (0.5-1.4) mg/dL Estim Creat Clear Calc 63.2 Estimated GFR 58 Random Glucose 145 H (60-115) mg/dL Calcium 9.5 (8.4-10.2) mg/dL Magnesium 1.9 (1.6-2.6) mg/dL Total Bilirubin 1.1 H (0.0-1.0) mg/dL Direct Bilirubin 0.4 (0.0-0.5) mg/dL AST 60 H (5-31) U/L ALT 89 H (0-31) U/L Alkaline Phosphatase 160 H (39-117) U/L Ammonia 23 (13-55) umol/L Troponin I High Sens < 2.7 (<3.5-17.0) ng/L B-Natriuretic Peptide < 10 (<100) pg/mL Total Protein 7.7 (6.5-8.0) g/dL Albumin 3.9 (3.5-5.0) g/dL Lipase 8 (8-78) U/L Urine Color Yellow Urine Appearance Cloudy Urine pH 5.0 (5.0-9.0) Ur Specific [place] >= 1.030 H (1.005-1.025) Urine Protein Negative (Neg-Trace) mg/dL Urine Glucose (UA) Negative (Negative) mg/dL Urine Ketones Trace (Negative) mg/dL Urine Blood Negative (Negative) Urine Nitrite Negative (Negative) Ur Leukocyte Esterase Negative (Negative) Urine Opiates Screen Not Detected (Not Detect) Urine Fentanyl Screen Not Detected (Not Detect) Ur Barbiturates Screen Not Detected (Not Detect) Ur Phencyclidine Scrn Not Detected (Not Detect) Ur Amphetamines Screen Not Detected (Not Detect) U Benzodiazepines Scrn Not Detected (Not Detect) Urine Cocaine Screen Not Detected (Not Detect) U Marijuana (THC) Screen Not Detected (Not Detect) Ethyl Alcohol < 10 mg/dL Independent Interpretation I performed an independent interpretation of an: EKG (My interpretation of EKG: Normal sinus rhythm, heart rate 98, less than [address] segment depression in leads V4 V5 V6, previously seen in other EKGs, no T-wave inversion, QTC 455) Independent Historian Clinical information obtained from an independent historian. History obtained from or confirmed by: Spouse Critical Care Time Critical Care Time Critical Care Time: Yes Total Critical Care Time: 60 Attestation: I have personally provided critical care time. Time includes review of lab data, radiology results, discussion with consultants, and monitoring for potential decompensation. Intervention performed as documented. Discharge Plan Discharge Clinical Impression: Acute confusion Patient Disposition: Home, Self-Care Instructions: Acute Delirium (ED) Additional Instructions: Please follow-up with your primary care physician tomorrow. If you have any worsening or new symptoms, please return to the emergency room or call 911 Prescriptions: No Action Ajovy Autoinjector 225 mg/1.5 mL auto-injector 225 mg subcut QMONTH 30 Days Qty: 1.5 6RF Rx Instructions: administer 225mg sc q month lorazepam [Ativan] 0.5 mg tablet 0.5 mg PO BID PRN (Reason: anxiety) Qty: 20 0RF venlafaxine 37.5 mg capsule,extended release 24hr 37.5 mg PO DAILY tramadol 50 mg tablet 50 mg PO Q6H PRN (Reason: pain) Qty: 20 0RF lidocaine 5 % adhesive patch,medicated 1 patch topical Q24H Qty: 30 0RF Rx Instructions: leave on most painful area for up to 12 hrs acetaminophen [Tylenol Arthritis Pain] 650 mg tablet extended release 650 mg PO Q8H PRN (Reason: pain) Qty: 30 0RF clonidine HCl 0.1 mg tablet 0.1 mg PO TID (DME) FreeStyle Lite Strips Strip 1 strip MISCELLANEOUS TID simvastatin 20 mg tablet 20 mg PO BEDTIME insulin lispro 100 unit/mL insulin pen See Protocol subcut TID Protocol: Insulin Correction Scale Less than or equal to 110 ---- Give (units): 0 111 to 150 Give (units): 33 151 to 200 Give (units): 37 201 to 250 Give (units): 41 251 to 300 Give (units): 43 301 to 350 Give (units): 45 Greater than 350 Give (units): 47 Call MD if Blood Glucose > : 400 Rx Instructions: inject subq 3x daily with meals per sliding scale 80-99 inject 31 units 100-149 inject 33 units 150-199 inject 37 units 200-249 inject 41 units 250-299 inject 43 units 300-349 inject 45 units 350-399 inject 47 units 400 and higher: inject 49 units and call MD insulin glargine [Lantus Solostar U-100 Insulin] 100 unit/mL (3 mL) insulin pen 53 unit subcut BID Rx Instructions: inject 50 units subq in the morning (8am) and 50 units at night (8pm) (DME) pen needle, diabetic [BD Ultra-Fine Micro Pen Needle] 32 gauge x 1/4 needle MISCELLANEOUS Ubrelvy 100 mg tablet 100 mg PO Q2H PRN (Reason: Migraine Headache) Rx Instructions: take at onset of migraine. MRX1 after 2 hours. Do not exceed 2 doses in 24 hours gabapentin 300 mg capsule 300 mg PO BID@0900,1500 Patient Comments: 8am and 2pm levothyroxine 125 mcg tablet 125 mcg PO DAILY@0600 aspirin 81 mg Tablet,Delayed Release (Dr/Ec) 81 mg PO DAILY cholecalciferol (vitamin D3) 25 mcg (1,000 unit) Tablet 25 mcg PO DAILY melatonin 10 mg Tablet 10 mg PO BEDTIME gabapentin [Neurontin] 300 mg capsule 600 mg PO BEDTIME
--- NOTE | 2023-08-02 00:21 | PC.NURSE ---
this rn ambulated pt with walker, pt ambulated with steady gait, denies sob and chest pain. aware.
[2023-08-02 00:29] VITALS: BP 177/82; PULSE 82; RESP 15; TEMP 37.1; O2SAT 96
--- NOTE | 2023-08-02 00:40 | PC.NURSE ---
pt ambulated to bathroom with steady gait, urine sample obtained and sent to lab.
[2023-08-02 00:57] LABS: Appearance Urine Cloudy; Color Urine Yellow; Glucose Urine UA Negative (Negative); Leukocyte Esterase Urine Negative (Negative); Nitrite Urine Negative (Negative); Specific Gravity - Urine >= 1.030 (1.005-1.025); Urine Blood Negative (Negative); Urine Ketones Trace mg/dL (Negative); Urine Protein Negative (Neg-Trace)
[2023-08-02 01:04] LABS: Amphetamine Screen Urine Not Detected (Not Detect); Barbiturates, Urine Not Detected (Not Detect); Benzodiazepines Screen Urine Not Detected (Not Detect); Cannabinoid Screen Urine Not Detected (Not Detect); Cocaine Screen Urine Not Detected (Not Detect); Fentanyl, urine Not Detected (Not Detect); Opiate Screen Urine Not Detected (Not Detect); Phencyclidine Screen Urine Not Detected (Not Detect)
--- NOTE | 2023-08-02 01:56 | PC.NURSE ---
this rn called pt at this time, pt reports he is able to provide pt ride home.
[2023-08-02 03:15] VITALS: BP 181/84; PULSE 79; RESP 20; TEMP 37; O2SAT 96
== END 2023-08-02 03:16 | disposition home or self-care (01) ==
PROVIDERS: Emergency Provider Emergency Medicine; PCP Internal Medicine
DX: R41.0 Disorientation, unspecified (principal); E11.22 Type 2 diabetes mellitus with diabetic chronic kidney disease; I12.9 Hypertensive chronic kidney disease with stage 1 through stage 4 chronic kidney disease, or unspecified chronic kidney disease; N18.2 Chronic kidney disease, stage 2 (mild)
CPT/HCPCS: 36415; 51701; 80048; 80076; 80307; 81003; 82140; 83690; 83735; 83880; 84484; 85025; 85610; 93005; 99283; 99284

== ENCOUNTER → 2023-08-01 20:26 | Outpatient (BNV) | payer MEDICARE, SELFPAY | PROVIDERS: Emergency Provider Emergency Medicine; PCP Internal Medicine; Visit Provider Internal Medicine Cardiovascular Disease | DX: R94.31 Abnormal electrocardiogram [ECG] [EKG] (principal) | CPT/HCPCS: 93010 ==

== ENCOUNTER 2023-09-22 09:16 | Outpatient (AMB) | payer MEDICARE, SELFPAY ==
[2023-09-22 09:48] VITALS: BP 144/88; BMI 42.6
--- NOTE | 2023-09-22 09:48 | A.OFFVIS_ITS ---
Vital Signs 09/22/23 09:48 Height 5 ft 4 in Weight 248 lb BMI 42.6 BP 144/88 H Blood Pressure Location Rt brachial Position Sitting Intake Visit Reasons: 12/19 wks-CONF Intake Note: Patient presents for 8 week follow up. patnent still having migraines. just got released from hospital. Allergies Iodinated Contrast Media [IVP DYE] Allergy (Severe, Verified 09/22/23 09:52) SEDATION,TACHYCARDIA azithromycin Allergy (Unknown, Verified 09/22/23 09:52) Hives erythromycin base [ERYTHROMYCIN BASE] Allergy (Unknown, Verified 09/22/23 09:52) HIVES metformin Adverse Reaction (Unknown, Verified 09/22/23 09:52) Diarrhea HPI Comments Details: 73-yr-old female presents for f/u visit, accompanied by her . Pt has had another interval prolonged ICU admission for MAGGY and encephalopathy at [facility] f/b a 5 week rehab stay. She was discharged home approx a week ago. She was started on Topiramate, Lisinopril, Primidone and Risperidine- however pt has not continued these since returning home- they want to streamline her meds. She did start Venlafaxine after her last visit here, and this was stopped when she went into [facility]. She has not had her Ajovy in a couple of months- was having difficulty getting it from the pharmacy. notes that pt had not taken in prior to the last hospitalization. She is using Ubrelvy and Lorazepam prn. She notes she is sad and prone to crying. She can feel confused at times. She has not been sleeping. She is having Right foot pain, BLE foot swelling. [facility] Medical History (Updated 09/22/23 @ 10:49 by ANTHONY Almonte) Migraine Type 2 diabetes mellitus CKD (chronic kidney disease) stage 2, GFR 60-89 ml/min Anxiety Obstructive sleep apnea Encephalitis Hypothyroid HTN (hypertension) HLD (hyperlipidemia) Diabetes Complicated migraine Surgical History Hx of left mastectomy Hx of cholecystectomy H/O section Family History Mother Lung cancer Diabetes Depression Daughter Alcohol abuse Father FH: cholecystectomy Social History Household Members: Spouse Housing: Unknown / Unable to assess Do you presently have visiting nurse or other home services: No (just finished last week) Unable to assess alcohol history related to: Unable to respond Alcohol intake: never Comment: 1 TO 1 SITTER Patient Tobacco Use Status: Never used Tobacco e-Cigarette/Vaping Use: Never Used Second Hand Smoke Exposure: No Advance Directives Date on File: 09/28/22 service: No Current occupational status: retired Physical Exam Vital Signs: Last Vital Signs BP 144/88 H 09/22/23 09:48 BMI result Body Mass Index 42.6 Const General: cooperative and no acute distress Resp Effort & Inspection: normal respiratory effort and able to speak in complete sentences Neuro Other: A&O. Responding appropriately. Steady gait w/ cane. Cranial nerves: Yes CN's II-XII intact bilaterally Cognition (Neuro): normal cognition Psych Appearance: grossly normal Mental Status: mental status grossly normal Speech and movement: Normal speech and movement present Affect: normal affect Attitude: cooperative Assessment & Plan Assessment & Plan (1) Migraine: Code(s): G43.909 - Migraine, unspecified, not intractable, without status migrainosus Category: Medical (2) Mood disorder: Code(s): F39 - Unspecified mood [affective] disorder Category: Medical (3) Sleep difficulties: Code(s): G47.9 - Sleep disorder, unspecified Category: Medical Plan Will request all tetsing and recent labs from [facility]/PCP. Resume Ajovy for migraine prevention. Continue Ubrelvy prn for now- as I would avoid triptans d/t variable BP/HTN. Continue Lorazepam 0.5mg- may take qhs and 1 extra tab per day prn- may take at onset of migraine attack w/ Ubrelvy. Pt stopped venlafaxine, also topiramate, risperdal, primidone, lisinopril. Pt advised to resume Lisinopril 5mg qd- as she still has HTN. Pt advised to trial Depakote 125mg bid- this may help mood, migraine, and may prevent these acute episodes of encephalopathy- likely will need to icnrease dose. Future considerations- autoimmune encephalitis work-up if not done in hospital. f/u in 3 months or sooner prn. Medications: New divalproex (Depakote) 125 mg PO BID 30 days 60 tabs 1RF Changed From lorazepam (Ativan) 0.5 mg PO BID PRN 20 tabs 0RF anxiety To lorazepam (Ativan) 0.5 mg orally qhs and may take 1 extra tab per day prn; 30 days 40 tabs 2RF anxiety Coding Level of Care Code Est Pt Level 4 (81003) Diagnoses Migraine G43.909 Mood disorder F39 Sleep difficulties G47.9
== END 2023-09-22 10:40 | disposition home or self-care (01) ==
PROVIDERS: PCP Internal Medicine; Visit Provider Nurse Practitioner Family
DX: G43.909 Migraine, unspecified, not intractable, without status migrainosus (principal); F39 Unspecified mood [affective] disorder; G47.9 Sleep disorder, unspecified
CPT/HCPCS: 99214

== ENCOUNTER → 2023-09-22 09:16 | Outpatient (BNVA) | payer MEDICARE, SELFPAY | PROVIDERS: PCP Internal Medicine; Visit Provider Nurse Practitioner Family | DX: G43.909 Migraine, unspecified, not intractable, without status migrainosus (principal); F39 Unspecified mood [affective] disorder; G47.9 Sleep disorder, unspecified | CPT/HCPCS: 99212 ==

== ENCOUNTER 2023-12-22 15:10 | Outpatient (AMB) | payer MEDICARE, SELFPAY ==
--- NOTE | 2023-12-22 15:24 | HO.NEPHOV ---
Vital Signs 12/22/23 15:26 Height 5 ft 4 in Weight 240 lb BMI 41.2 BP 140/50 H Blood Pressure Location Rt brachial Position Sitting Pulse 81 Pulse Source Pulse Oximeter Pulse Oximetry (%) 95 Oxygen Delivery Method Room Air Intake Visit Reasons: HTN/ 6 MO FU/ LVM (home #) Assistant Laboratory Director Required: No Accompanied by: Daughter Allergies Iodinated Contrast Media [IVP DYE] Allergy (Severe, Verified 12/22/23 15:28) SEDATION,TACHYCARDIA azithromycin Allergy (Unknown, Verified 12/22/23 15:) Hives erythromycin base [ERYTHROMYCIN BASE] Allergy (Unknown, Verified 12/22/23 15:) HIVES metformin Adverse Reaction (Unknown, Verified 12/22/23 15:) Diarrhea HPI Comments Details: I had the privilege of seeing Charissa in follow-up of her mild chronic kidney disease and hypertension. Her blood sugar control is not well controlled. She does not have any fever, suprapubic pain, dysuria, hematuria, nausea, vomiting, fever, chills or rigors. She feels her thyroid function is under control her on levothyroxine. She is tolerating statins. She does not have any chest pain, shortness of breath, proximal nocturnal dyspnea, orthopnea, pedal edema, orthostatic symptoms, new skin rashes, headache, joint swellings. She has not been taking any nonsteroidal anti-inflammatory medications and tries to keep up with good hydration. She has history of breast cancer remotely. She has lung nodule which is followed up by Dr. De Leon. She has left shoulder pain and has physiatry. They are contemplating giving intra articular steroid . [facility] Medical History (Updated 09/22/23 @ 10:49 by ANTHONY Almonte) Migraine Type 2 diabetes mellitus CKD (chronic kidney disease) stage 2, GFR 60-89 ml/min Anxiety Obstructive sleep apnea Encephalitis Hypothyroid HTN (hypertension) HLD (hyperlipidemia) Diabetes Complicated migraine Surgical History Hx of left mastectomy Hx of cholecystectomy H/O section Family History Mother Lung cancer Diabetes Depression Daughter Alcohol abuse Father FH: cholecystectomy Social History Household Members: Spouse Housing: Unknown / Unable to assess Do you presently have visiting nurse or other home services: No (just finished last week) Unable to assess alcohol history related to: Unable to respond Alcohol intake: never Comment: 1 TO 1 SITTER Patient Tobacco Use Status: Never used Tobacco e-Cigarette/Vaping Use: Never Used Second Hand Smoke Exposure: No Advance Directives Date on File: 09/28/22 service: No Current occupational status: retired Review of Systems Const All systems reviewed & are unremarkable except as noted in HPI and below Physical Exam Vital Signs: Last Vital Signs Pulse 81 12/22/23 15:26 BP 140/50 H 12/22/23 15:26 Pulse Ox 95 12/22/23 15:26 Oxygen Delivery Method Room Air 12/22/23 15:26 BMI result Body Mass Index 41.2 Const General: comfortable and no acute distress Orientation/consciousness: patient oriented x3 HEENT Head: Yes normocephalic Mouth: Normal oral and palatal mucosa present Eyes EOM: EOMs intact bilaterally Neck Neck: Yes supple Resp Auscultation: clear to auscultation bilaterally Cardio Jugular venous distension: no JVD Rate: regular rate GI Palpation (GI): Soft to palpation Auscultation: normal bowel sounds General: Yes no CVA tenderness Back/Spine/Pelvis Back: no CVA tenderness Skin General skin exam: no rashes or lesions noted Neuro General: patient oriented x3 and moves all extremities Extrem General: Yes no pedal edema Results Reviewed Nephrology Results: Hgb 14.7 g/dl (12.0-16.0) 08/01/23 WBC 11.3 X10*3/uL (4.8-10.8) H 08/01/23 Plt Count 323 X10*3/uL (160-400) 08/01/23 Sodium 141 mmol/L (135-145) 08/01/23 Potassium 4.2 mmol/L (3.3-5.1) 08/01/23 Chloride 105 mmol/L (96-108) 08/01/23 Carbon Dioxide 25 mmol/L (22-29) 08/01/23 BUN 19 mg/dL (9-16) H 08/01/23 Creatinine 0.95 mg/dL (0.5-1.4) 08/01/23 Calcium 9.5 mg/dL (8.4-10.2) 08/01/23 Urine Protein Negative mg/dL (Neg-Trace) 08/02/23 Assessment & Plan Assessment & Plan (1) HTN (hypertension): Code(s): I10 - Essential (primary) hypertension Category: Medical Qualifiers: Hypertension type: primary hypertension Qualified Code(s): I10 - Essential (primary) hypertension Plan She is diabetic and hypertensive. Her blood sugars are suboptimally controlled, but better. Her blood pressure is marginally high. She may need addition of more BP medications. She needs to loose more weight. She was counseled to be more active and lose some weight. She does not take any nonsteroidal anti-inflammatory medications and keep herself hydrated. She was on Jardiance which she stopped due to yeast infection. I did not make any medication changes today. Labs ordered; F/U given Orders: Orders Blood Urea Nitrogen Today I10 - Essential (primary) hypertension Creatinine Today I10 - Essential (primary) hypertension Electrolytes Today I10 - Essential (primary) hypertension Coding Level of Care Code Est Pt Level 4 (21681) Diagnoses Primary hypertension I10 Hypertension type: primary hypertension
[2023-12-22 15:26] VITALS: BP 140/50; PULSE 81; O2SAT 95; BMI 41.2
== END 2023-12-22 15:58 | disposition home or self-care (01) ==
PROVIDERS: Visit Provider Internal Medicine Nephrology
DX: I10 Essential (primary) hypertension (principal)
CPT/HCPCS: 99214

== ENCOUNTER → 2023-12-22 15:10 | Outpatient (BNVA) | payer MEDICARE, SELFPAY | PROVIDERS: Visit Provider Internal Medicine Nephrology | DX: I12.9 Hypertensive chronic kidney disease with stage 1 through stage 4 chronic kidney disease, or unspecified chronic kidney disease (principal); N18.2 Chronic kidney disease, stage 2 (mild) | CPT/HCPCS: 99212 ==

== ENCOUNTER 2024-01-29 09:43 | Observation (INO) | payer MEDICARE, SELFPAY ==
[2024-01-29] VITALS (7 sets, daily range): BP systolic 139–161; BP diastolic 56–75; PULSE 62–85; RESP 14–18; TEMP 36.5–36.9; O2SAT 95–100; BMI 36.4; BMI 36.9
--- NOTE | ~2024-01-29 | XR_ITS ---
EXAMINATION: XR CHEST CLINICAL INFORMATION: Migraine with change in mental status. COMPARISON: Multiple priors with last chest x-ray of 07/06/2023 TECHNIQUE: Frontal view of the chest was obtained. FINDINGS: Cardiomediastinal silhouette is stable and normal. Multiple left axillary surgical clips are redemonstrated. The lungs are mildly hypoexpanded. No focal consolidation, changes of congestion, pleural effusions or pneumothorax are seen. XR/XR chest 1V IMPRESSION: No radiographic evidence of pneumonia. No acute pulmonary process. Electronically signed by: Deion Stock MD 01/29/2024 01:05 PM EDT
--- NOTE | ~2024-01-29 | CT_ITS ---
EXAMINATION: CT HEAD WITHOUT CONTRAST CLINICAL INFORMATION: Migraine. Change in mental status. COMPARISON: Brain MRI from 07/03/2023. TECHNIQUE: Contiguous axial imaging was performed from the skull base to vertex without intravenous administration of contrast. This CT examination was performed using dose optimization techniques as appropriate, variously including the following: *Automated exposure control. *Adjustment of mA and/or kV according to patient size (this includes techniques or standardized protocols for targeted exams where dose is matched to indication/reason for exam; i.e. extremities or head). *Use of iterative reconstruction technique. DLP: 714 mGy-cm FINDINGS: There is no evidence of acute intracranial hemorrhage or edematous territorial infarction. Chronic mineralization along the the ventral aspect of the fourth ventricle. Hinojosa-white matter differentiation is preserved. Scattered and partially confluent hypoattenuation in the periventricular and deep white matter are consistent with moderate microangiopathy. Proportional prominence of the ventricles and sulcal spaces without evidence of obstructive hydrocephalus. No abnormal mass effect or midline shift. No extra-axial fluid collections. No acute soft tissue or osseous abnormalities. Mild mucosal thickening of the paranasal sinuses. The mastoid air cells and middle ear cavities are clear. Moderate degenerative arthropathy of the right temporomandibular joint. Bilateral lens extractions. CT/CT head/brain wo IV con IMPRESSION: 1. No evidence of acute intracranial hemorrhage or edematous territorial infarction. 2. Moderate underlying microangiopathy and generalized cerebral volume loss. Electronically signed by: Wilfredo Alfaro DO 01/29/2024 02:17 PM EDT
--- NOTE | 2024-01-29 10:23 | ED_ITS ---
HPI - Headache General Chief Complaint: Headache Stated Complaint: MIGRAINE LARA W/L WEAKNESS & SLURR,STS THIS HAPPENS Time Seen by Provider: 01/29/24 10:05 Source: patient, family, EMS and old records reviewed Mode of arrival: EMS Limitations: no limitations History of Present Illness ED Provider: DR. Calderón HPI Narrative: 73-year-old female had multiple hospitalization in somewhat similar presentation today history of migraine headache that usually accompanied with confusion and change mental status, complaining of migraine headache this morning, followed by generalized body ache more to the left upper extremity. Patient stated that her headache is better but now elder severe than this morning. Patient had a complete neurological evaluation in the past without a definitive diagnosis of patient's clinical presentation. patient today is complaining of mild migraine with left arm pain but able to give a full history, no auditory or visual hallucination, no SI, no HI, no history of fall or head injury. Related Data Home Medications ?Medication ?Instructions ?Recorded ?Confirmed blood sugar diagnostic (FreeStyle 09/28/22 06/10/23 Lite Strips) clonidine HCl 0.1 mg tablet 0.1 mg PO TID 09/28/22 07/03/23 insulin lispro 100 unit/mL See Protocol subcut TID 09/28/22 07/03/23 subcutaneous pen pen needle, diabetic 32 gauge x 09/28/22 06/10/2305/13 (BD Ultra-Fine Micro Pen Needle) simvastatin 20 mg tablet 20 mg PO BEDTIME 09/28/22 07/03/23 ubrogepant 100 mg tablet (Ubrelvy) 100 mg PO Q2H PRN Migraine Headache 09/28/22 07/03/23 aspirin 81 mg tablet,delayed 81 mg PO DAILY 10/01/22 07/03/23 release cholecalciferol (vitamin D3) 25 25 mcg PO DAILY 10/01/22 07/03/23 mcg (1,000 unit) tablet levothyroxine 125 mcg tablet 125 mcg PO DAILY@0600 04/14/23 07/03/23 gabapentin 100 mg capsule 100 mg PO TID 12/22/23 insulin glargine 100 unit/mL (3 52 unit subcut BID 12/22/23 mL) subcutaneous pen (Lantus Solostar U-100 Insulin) oxycodone 5 mg tablet 5 mg PO DAILY PRN 12/22/23 Previous Rx's ?Medication ?Instructions ?Recorded fremanezumab-vfrm 225 mg/1.5 mL 225 mg (1.5 mL) subcut QMONTH 30 07/23/23 subcutaneous auto-injector (Ajovy) days #1.5 mL acetaminophen 650 mg 650 mg PO Q8H PRN pain #30 tabs 07/31/23 tablet,extended release (Tylenol Arthritis Pain) divalproex 125 mg tablet,delayed 125 mg PO BID 30 days #60 tabs 11/09/23 release (Depakote) lorazepam 0.5 mg tablet (Ativan) 0.5 mg PO .COMPLEX anxiety 30 days 12/21/23 #40 tabs Allergies Allergy/AdvReac Type Severity Reaction Status Date / Time Iodinated Contrast Media Allergy Severe SEDATION,TA Verified 01/29/24 09:52 [IVP DYE] CHYCARDIA azithromycin Allergy Unknown Hives Verified 01/29/24 09:52 erythromycin base Allergy Unknown HIVES Verified 01/29/24 09:52 [ERYTHROMYCIN BASE] metformin AdvReac Unknown Diarrhea Verified 01/29/24 09:52 Review of Systems 2 Review of Systems: All other systems are reviewed and are negative Constitutional: Reports as per HPI and Reports no additional constitutional complaints Eyes: Reports as per HPI and Reports no additional eye complaints Reports system reviewed and no additional complaints, except as documented Cardiovascular: Reports as per HPI and Reports no additional cardiovascular complaints Respiratory: Reports as per HPI and Reports no additional respiratory complaints Gastrointestinal: Reports as per HPI and Reports no additional gastrointestinal complaints Genitourinary: Reports no additional female genitourinary complaints Musculoskeletal: Reports no additional musculoskeletal complaints Skin/Breast: Reports system reviewed and no additional complaints, except as docu Psychiatric: Reports no additional psychiatric complaints Endocrine: Reports no additional endocrine complaints Hematologic/Lymphatic: Reports no additional hematologic/lymphatic complaints Allergic/Immunologic: Reports no additional allergic/immunologic complaints Reports system reviewed and no additional complaints, except as documented and Reports Abnormal speech present [facility] Past Medical History Medical History Migraine Type 2 diabetes mellitus CKD (chronic kidney disease) stage 2, GFR 60-89 ml/min Anxiety Obstructive sleep apnea Encephalitis Hypothyroid HTN (hypertension) HLD (hyperlipidemia) Diabetes Complicated migraine Surgical History Hx of left mastectomy Hx of cholecystectomy H/O section Family History Family History Mother Lung cancer Diabetes Depression Daughter Alcohol abuse Father FH: cholecystectomy Social History Social History Household Members: Spouse Housing: Unknown / Unable to assess Do you presently have visiting nurse or other home services: No (just finished last week) Unable to assess alcohol history related to: Unable to respond Alcohol intake: never Comment: 1 TO 1 SITTER Patient Tobacco Use Status: Never used Tobacco Smoked in Last 30 Days: No e-Cigarette/Vaping Use: Never Used Second Hand Smoke Exposure: No Use of substances other than those prescribed or required for medical reasons: No Advance Directives: Yes Advance Directives on File: Yes Advance Directives Date on File: 09/28/22 Do you have a plan to hurt others: No Plan service: No Current occupational status: retired Physical Exam 2 Vital Signs: Vital Signs: Last Vital Signs Temp 98.2 F 01/29/24 13:27 Pulse 63 01/29/24 13:27 Resp 18 01/29/24 13:39 BP 157/60 H 01/29/24 13:27 Pulse Ox 98 01/29/24 13:27 O2 Del Method Room Air 01/29/24 13:27 BMI result Body Mass Index 36.4 Vital signs have been reviewed and appear to be correct. Blood pressure elevated. Heart rate normal. Respiratory rate normal. Temperature normal. Oxygen saturation normal. Appearance: Alert. Oriented X3. No acute distress. Head: Normal external exam. Normocephalic. Atraumatic. No Maldonado signs noted. No raccoon eyes noted Eyes: PERRLA. EOMI. Conjunctiva and sclera normal. Eyelids normal. ENT: TM's Normal. Pharynx normal. Uvula midline. Moist mucous membranes. No trismus noted. No drooling noted. No muffled voice noted. Neck: Normal inspection. Neck supple. FROM. No adenopathy. Thyroid Normal. No meningeal signs. No neck mass noted. CVS: Normal heart rate and rhythm. Heart sound normal. No murmurs noted. Pulses normal throughout. Respiratory: No respiratory distress. Painless inspiration. Breath sounds normal. No wheezes/rales/rhonchi noted. Chest nontender. No accessory muscle usage noted or decreased air movement noted. Abdomen: Soft and nontender. Bowel sounds normal in all 4 quadrants. No distention noted. No organomegaly noted. No visible injury noted. Back: No CVA tenderness. Full range of motion noted. Skin: Skin warm and dry. Normal skin color. Normal skin turgor. No rashes/lesions/lacerations noted. Extremities: No lower extremity edema. Extremities exhibit normal range of motion. Extremities nontender. Neuro: Oriented X 3. Cranial nerve exam: II-XII are grossly intact No motor deficit. No sensory deficit. Reflexes normal. Course Reevaluation(s) Reevaluation #1: partial resolution patient's migraine headache, with complete resolution of left-sided tingling. Patient had a previous extensive neurological evaluation patient may represent a complex migraines versus TIA. Time: 14:22 Medications Administered Discontinued Medications Generic Name Dose Route Start Last Admin Trade Name Freq PRN Reason Stop Dose Admin Sodium Chloride 1,000 mls @ 999 mls/hr 01/29/24 10:29 01/29/24 11:26 Ns IV 01/29/24 11:29 999 mls/hr .Q1H1M ONE Administration Morphine Sulfate 1 mg 01/29/24 13:32 01/29/24 13:39 Morphine Sulfate 2 Mg/Ml Cartridge IVPUSH 01/29/24 13:33 1 mg ONCE ONE Administration Protocol Medical Decision Making Differential Diagnosis Differential Diagnoses: The differential diagnosis associated with the presentation includes ( intracranial bleed, TIA, migraine, electrolyte derangement, ischemic stroke.) Admission/Observation Consideration of admission/observation: Escalation of care including admission/observation considered Consult Healthcare Provider Management of the patient was discussed with: Hospitalist ( Dr. Vasquez) Lab Data MDM Lab Attestation statement: I reviewed the patient's lab results. 01/29/24 11:21 01/29/24 11:21 Labs: Lab Results 01/29/24 01/29/24 Range/Units 11:03 11:21 WBC 8.4 (4.8-10.8) X10*3/uL RBC 4.07 L (4.20-5.50) X10*6/uL Hgb 12.0 (12.0-16.0) g/dl Hct 35.9 L (37.0-47.0) % MCV 88.2 (80.0-98.0) fL MCH 29.5 (27.0-33.0) pg MCHC 33.4 (31.0-35.0) g/dl RDW 13.2 (11.0-16.0) % Plt Count 244 (160-400) X10*3/uL MPV 11.5 (9.4-12.3) fL Immature Gran % (Auto) 0.4 (0.0-0.4) % Neut % (Auto) 54.8 (45-73) % Lymph % (Auto) 31.5 (20-40) % [place] % (Auto) 10.1 (2-11) % Eos % (Auto) 2.7 (0-4) % Baso % (Auto) 0.5 (0-2) % Lymph # (Auto) 2.7 (1.2-4.9) X10*3/uL [place] # (Auto) 0.9 (0.1-1.2) X10*3/uL Eos # (Auto) 0.2 (0.0-0.4) X10*3/uL Baso # (Auto) 0.0 (0.0-0.2) X10*3/uL Abs Immat Gran (auto) 0.03 (0.00-0.03) X10*3/uL Absolute Neuts (auto) 4.6 (2.0-8.3) x10*3/uL Absolute Nucleated RBC 0.000 (0.0-0.012) X10*3/uL Nucleated RBC % (auto) 0.0 (0.0-0.2) /100WBC Sodium 142 (135-145) mmol/L Potassium 4.3 (3.3-5.1) mmol/L Chloride 105 (96-108) mmol/L Carbon Dioxide 28 (22-29) mmol/L Anion Gap 13 (12-20) BUN 23 H (9-16) mg/dL Creatinine 1.12 (0.5-1.4) mg/dL Estim Creat Clear Calc 61.4 Estimated GFR 48 Random Glucose 185 H (60-115) mg/dL Calcium 9.0 (8.4-10.2) mg/dL Total Bilirubin 1.2 H (0.0-1.0) mg/dL Direct Bilirubin 0.4 (0.0-0.5) mg/dL AST 36 H (5-31) U/L ALT 40 H (0-31) U/L Alkaline Phosphatase 119 H (39-117) U/L Total Creatine Kinase 58 (26-140) U/L Troponin I High Sens < 2.7 (<3.5-17.0) ng/L B-Natriuretic Peptide 25 (<100) pg/mL Total Protein 6.9 (6.5-8.0) g/dL Albumin 3.6 (3.5-5.0) g/dL Lipase 14 (8-78) U/L COVID-19 (MARI) Negative (Negative) COVID-19 Clin Com See Note Influenza Type A (PCR) NEGATIVE (Negative) Influenza Type B (PCR) NEGATIVE (Negative) RSV RNA Qual (PCR) NEGATIVE (Negative) SARS-CoV-2 RNA (RT-PCR) NEGATIVE (Negative) Independent Interpretation I performed an independent interpretation of an: EKG ( Normal sinus rhythm at 64 beats per minutes, normal intervals, no ST-T changes.) and CT Scan ( head:1. No evidence of acute intracranial hemorrhage or edematous territorial infarction. 2. Moderate underlying microangiopathy and generalized cerebral volume loss. ) Radiology Impression Discussion of test interpretation with radiology: I have reviewed the radiologist's reading. Discharge Plan Discharge Clinical Impression: Brain TIA, Migraine Patient Disposition: Admitted As Inpatient Print Language: [place] Islander
--- NOTE | 2024-01-29 10:29 | ECG_ITS ---
Test Reason : MIGRAINE/AMS Blood Pressure : / mmHG Vent. Rate : 064 BPM Atrial Rate : 064 BPM P-R Int : 208 ms QRS Dur : 094 ms QT Int : 410 ms P-R-T Axes : 030 035 031 degrees QTc Int : 422 ms Normal sinus rhythm Normal ECG When compared with ECG of 01-AUG-2023 20:26, Vent. rate has decreased BY 34 BPM QT has shortened Referred By: Shiraz Calderón Electronically Signed By:DEE DEE CHRISTIAN
[2024-01-29] MEDS: 0.9 % Sodium Chloride 1,000 ML 999 ML IV (11:26)
[2024-01-29 11:27] LABS: MANUAL DIFF FLAG NO
[2024-01-29 11:31] LABS: Basophils Percent Auto 0.5 % (0-2); Eosinophils Absolute Auto 0.2 X10*3/uL (0.0-0.4); Eosinophils Percent Auto 2.7 % (0-4); Hematocrit 35.9 % (37.0-47.0); Imm Gran Abs Auto 0.03 X10*3/uL (0.00-0.03); Imm Gran Pct Auto 0.4 % (0.0-0.4); Lymphocytes Absolute Auto 2.7 X10*3/uL (1.2-4.9); Lymphocytes Percent Auto 31.5 % (20-40); Mean Corpuscular HGB Conc 33.4 g/dl (31.0-35.0); Mean Corpuscular Hemoglobin 29.5 pg (27.0-33.0); Mean Corpuscular Volume 88.2 fL (80.0-98.0); Mean Platelet Volume 11.5 fL (9.4-12.3); Monocytes Absolute Auto 0.9 X10*3/uL (0.1-1.2); Monocytes Percent Auto 10.1 % (2-11); Neutrophils Absolute Auto 4.6 x10*3/uL (2.0-8.3); Neutrophils Percent Auto 54.8 % (45-73); Platelet Count 244 X10*3/uL (160-400); Red Blood Count 4.07 X10*6/uL (4.20-5.50); Red Cell Distribution Width 13.2 % (11.0-16.0); White Blood Count 8.4 X10*3/uL (4.8-10.8)
[2024-01-29 11:36] LABS: COVID-19 Test Negative (Negative); IDNOW Serial# 152EDE1D
[2024-01-29 11:44] LABS: Alanine Aminotransferase 40 U/L (0-31); Albumin Level 3.6 g/dL (3.5-5.0); Alkaline Phosphatase 119 U/L (39-117); Anion Gap 13 (12-20); Aspartate Amino Transferase 36 U/L (5-31); Bilirubin Direct 0.4 mg/dL (0.0-0.5); Bilirubin Total 1.2 mg/dL (0.0-1.0); Blood Urea Nitrogen 23 mg/dL (9-16); Carbon Dioxide 28 mmol/L (22-29); Chloride 105 mmol/L (96-108); Creatinine Clr Calc Pharmacy 61.4; Estimated Glomerular Filt Rate 48; Glucose Random 185 mg/dL (60-115); Lipase 14 U/L (8-78); Potassium 4.3 mmol/L (3.3-5.1); Sodium 142 mmol/L (135-145); Total Protein 6.9 g/dL (6.5-8.0)
[2024-01-29 11:48] LABS: B Type Natriuretic Peptide 25 pg/mL (<100)
[2024-01-29 12:14] LABS: Influenza A PCR NEGATIVE (Negative); Influenza B PCR NEGATIVE (Negative); Resp Syncy Virus RNA Qual PCR NEGATIVE (Negative); SARS COV2 PCR INHOUSE NEGATIVE (Negative); Troponin-I High Sensitivity < 2.7 ng/L (<3.5-17.0)
[2024-01-29] MEDS: Morphine Sulfate 2 MG/ML CARTRIDGE 1 MG IVPUSH (13:39)
[2024-01-29 15:09] LABS: Appearance Urine Clear; Color Urine Yellow; Glucose Urine UA Negative (Negative); Leukocyte Esterase Urine Negative (Negative); Nitrite Urine Negative (Negative); Specific Gravity - Urine 1.015 (1.005-1.025); Urine Blood Negative (Negative); Urine Ketones Negative (Negative); Urine Protein Negative (Neg-Trace)
--- NOTE | 2024-01-29 15:31 | PC.NURSE ---
Pt oob to commode with Tech and this RN. Steady gait during transfer. Cleaned and washed up, placed in hospital gown. Pt aware of plan for admit, call altamirano within reach, all needs met at this time.
--- NOTE | 2024-01-29 15:45 | PHA.MEDREC ---
Addendum entered by aMrtinez Flores RPh 01/29/24 16:03: CONFIRMED BY [facility] Original Note: Pharmacy Consult ? Medication Reconciliation Pharmacy has completed the medication reconciliation. Called Joey to confirm meds.
--- NOTE | 2024-01-29 16:16 | MHC.EDTECH ---
This pct assumed care of Patient at 1500 Pt awake and resting ,vitals taken ,Pt belongings list done ,Call altamirano within Pt reach .
--- NOTE | 2024-01-29 16:25 | PM.IMHP ---
History of Present Illness Date of Service: 01/29/24 Attending physician on admission: Michael Hogue Chief Complaint: left side tingling/weakness and headache This is a 73-year-old female with history of complex migraines who presents to the emergency department with complaints of left-sided numbness tingling and weakness associated with migraine headache. Patient reports symptoms started this morning with left-sided numbness and tingling starting 1st and progressing to weakness on the left side of her body followed by onset of severe headache. She has history of complex migraines in multiple admissions for the same. She reports her symptoms are similar to in the past. She was able to take a dose of her Ubrelvy as well as Ativan prior to come into the emergency department her left-sided weakness has resolved and her headache has improved but has not completely resolved at this time. In the emergency department she had brain CT which showed no acute changes. Patient has had significant neurological workup in the past with similar presentation here at [facility] well as [facility]. Previous presentations have been associated with encephalopathy and sometimes with fever. Patient is currently awake alert with no evidence of confusion and no fever at this time. She denies any other associated complaints. According to her her migraines have been fairly well-controlled on Ubrelvy. Review of Systems Review of Systems: Yes all other systems are reviewed and are negative Constitutional: Constitutional: Denies chills and Denies fever(s) Cardiovascular: Cardiovascular: Denies chest pain and Denies palpitations Respiratory: Respiratory: Denies cough Gastrointestinal: Gastrointestinal: Denies abdominal pain, Denies nausea and Denies vomiting Endocrine: Endocrine: Denies palpitations [facility] Medical History Migraine Type 2 diabetes mellitus CKD (chronic kidney disease) stage 2, GFR 60-89 ml/min Anxiety Obstructive sleep apnea Encephalitis Hypothyroid HTN (hypertension) HLD (hyperlipidemia) Diabetes Complicated migraine Family History Mother Lung cancer Diabetes Depression Daughter Alcohol abuse Father FH: cholecystectomy Surgical History Hx of left mastectomy Hx of cholecystectomy H/O section Social History Household Members: Spouse Housing: Unknown / Unable to assess Do you presently have visiting nurse or other home services: No (just finished last week) Unable to assess alcohol history related to: Unable to respond Alcohol intake: never Comment: 1 TO 1 SITTER Patient Tobacco Use Status: Never used Tobacco Smoked in Last 30 Days: No e-Cigarette/Vaping Use: Never Used Second Hand Smoke Exposure: No Use of substances other than those prescribed or required for medical reasons: No Advance Directives: Yes Advance Directives on File: Yes Advance Directives Date on File: 09/28/22 Do you have a plan to hurt others: No Plan Nutrition Risks: No Nutritional Risk service: No Current occupational status: retired Meds Allergies Allergy/AdvReac Type Severity Reaction Status Date / Time Iodinated Contrast Media Allergy Severe SEDATION,TA Verified 01/29/24 09:52 [IVP DYE] CHYCARDIA azithromycin Allergy Unknown Hives Verified 01/29/24 09:52 erythromycin base Allergy Unknown HIVES Verified 01/29/24 09:52 [ERYTHROMYCIN BASE] metformin AdvReac Unknown Diarrhea Verified 01/29/24 09:52 Active Medications: Current Medications Acetaminophen (Acetaminophen 325 Mg Tablet) 650 mg PO Q6H PRN PRN Reason: Pain, Mild (Pain Scale 1-3), fever or headache Calcium Carbonate (Calcium Carbonate 750 Mg Tab.Chew) 750 mg PO Q4H PRN PRN Reason: Heartburn Enoxaparin Sodium (Enoxaparin Sodium 40 Mg/0.4 Ml Syringe) 40 mg SUBCUT Q24H [place] Magnesium Hydroxide (Milk Of Magnesia 30 Ml Oral.Susp) 30 ml PO DAILY PRN PRN Reason: Constipation Melatonin (Melatonin 3 Mg Tablet) 6 mg PO BEDTIME PRN PRN Reason: Insomnia Sodium Chloride (0.9 % Sodium Chloride Flush 3 Ml Syringe) 3 ml IVFLUSH QSHIFT [place] Home Medications ?Medication ?Instructions ?Recorded ?Confirmed ?Last Taken ?Type blood sugar diagnostic (FreeStyle 09/28/22 06/10/23 Unknown History Lite Strips) clonidine HCl 0.1 mg tablet 0.1 mg PO TID 09/28/22 01/29/24 01/29/24 08:00 History insulin lispro 100 unit/mL 1 sliding scale dose subcut TIDAC 09/28/22 01/29/2401/28/24 08:00 History subcutaneous pen pen needle, diabetic 32 gauge x 09/28/22 06/10/23 Unknown History 1/4 (BD Ultra-Fine Micro Pen Needle) simvastatin 20 mg tablet 20 mg PO BEDTIME 09/28/22 01/29/24 07/02/23 History ubrogepant 100 mg tablet (Ubrelvy) 100 mg PO Q2H PRN Migraine Headache 09/28/22 01/29/24 01/29/24 08:00 History aspirin 81 mg tablet,delayed 81 mg PO DAILY 10/01/22 01/29/24 01/29/24 08:00 History release cholecalciferol (vitamin D3) 25 25 mcg PO DAILY 10/01/22 01/29/24 01/29/24 08:00 History mcg (1,000 unit) tablet levothyroxine 125 mcg tablet 125 mcg PO DAILY@0600 04/14/23 01/29/24 01/29/24 06:00 History gabapentin 100 mg capsule 100 mg PO TID 12/22/23 01/29/24 01/29/24 08:00 History insulin glargine 100 unit/mL (3 52 unit subcut BID 12/22/23 01/29/24 01/29/24 08:00 History mL) subcutaneous pen (Lantus Solostar U-100 Insulin) divalproex 125 mg tablet,delayed 125 mg PO DAILY 01/29/24 01/29/24 01/29/24 08:00 History release (Depakote) lorazepam 0.5 mg tablet 0.5 mg PO DAILY PRN anxiety 01/29/24 01/29/24 Unknown History lorazepam 0.5 mg tablet (Ativan) 0.5 mg PO BEDTIME anxiety 01/29/24 01/29/24 Unknown History Physical Exam Vital Signs and Narrative: Vital Signs: Last Vital Signs Temp 98.5 F 01/29/24 16:07 Pulse 62 01/29/24 16:07 Resp 16 01/29/24 16:07 BP 147/56 H 01/29/24 16:07 Pulse Ox 97 01/29/24 16:07 O2 Del Method Room Air 01/29/24 16:07 BMI result Body Mass Index 36.4 Results Labs 01/29/24 11:21 09/21/24 11:21 Labs: Laboratory Results - last 24 hr 01/29/24 01/29/24 01/29/24 11:03 11:21 14:56 MCV 88.2 MCH 29.5 MCHC 33.4 RDW 13.2 Plt Count 244 MPV 11.5 Immature Gran % (Auto) 0.4 Neut % (Auto) 54.8 Lymph % (Auto) 31.5 [place] % (Auto) 10.1 Eos % (Auto) 2.7 Baso % (Auto) 0.5 Lymph # (Auto) 2.7 [place] # (Auto) 0.9 Eos # (Auto) 0.2 Baso # (Auto) 0.0 Abs Immat Gran (auto) 0.03 Absolute Neuts (auto) 4.6 Absolute Nucleated RBC 0.000 Nucleated RBC % (auto) 0.0 Anion Gap 13 Estim Creat Clear Calc 61.4 Estimated GFR 48 Random Glucose 185 H Calcium 9.0 Total Bilirubin 1.2 H Direct Bilirubin 0.4 AST 36 H ALT 40 H Alkaline Phosphatase 119 H Total Creatine Kinase 58 Troponin I High Sens < 2.7 B-Natriuretic Peptide 25 Total Protein 6.9 Albumin 3.6 Lipase 14 Urine Color Yellow Urine Appearance Clear Urine pH 6.0 Ur Specific [place] 1.015 Urine Protein Negative Urine Glucose (UA) Negative Urine Ketones Negative Urine Blood Negative Urine Nitrite Negative Ur Leukocyte Esterase Negative COVID-19 (MARI) Negative COVID-19 Clin Com See Note Influenza Type A (PCR) NEGATIVE Influenza Type B (PCR) NEGATIVE RSV RNA Qual (PCR) NEGATIVE SARS-CoV-2 RNA (RT-PCR) NEGATIVE Imaging Radiologist's Impressions: Impressions Chest X-Ray 01/29/24 10:29 IMPRESSION: No radiographic evidence of pneumonia. No acute pulmonary process. Electronically signed by: Deion Stock MD 01/29/2024 01:05 PM EDT RP Head CT 01/29/24 10:30 IMPRESSION: 1. No evidence of acute intracranial hemorrhage or edematous territorial infarction. 2. Moderate underlying microangiopathy and generalized cerebral volume loss. Electronically signed by: Wilfredo Alfaro DO 01/29/2024 02:17 PM EDT RP Assessment and Plan (1) Migraine: Status: Acute Plan Pt is a 72-year-old female with a PMH significant for?complex migraines, insulin-dependent type 2 diabetes with neuropathy, HLD, and hypothyroidism who presents to the ED for evaluation of sudden-onset left sided upper and lower extremity weakness with associated headache Left-sided weakness Likely secondary to complex migraine, pt with hx of similar presentations; workup in past has included LP, 24 hour EEG, CT and MRI of head, all negative currently awake, alert with no confusion or neurological symptoms CT negative for stroke. left side weakness resolved. takes Ubrelvy at home for complex migraines, took a dose prior to arrival and received morphine with good effect, headache significantly improved. can continue ubrelvy if able to bring from home neuro checks observation overnight Insulin-dependent diabetes type 2 Sliding-scale insulin Lantus, on 52U bid at baseline, received 37U bid during last admission, will start with 35U bid and up-titrate prn Diabetic diet Hypothyroidism Continue levothyroxine HLD Continue statin Mood disorder Continue depakote, Ativan, clonidine Obesity Class III Weight loss encouraged Mild transaminitis Chronic Likely due to fatty liver disease DNR/DNI DVT Prophylaxis: Lovenox attending: Dr. Hogue Quality Stroke Does the patient have a stroke diagnosis?: No VTE Prior VTE?: No VTE Risk Level:: Medical - moderate - high VTE Device Contraindication: N/A - Device Ordered VTE Drug Contraindication: N/A - Med Ordered
[2024-01-29] MEDS: Lactated Ringers 1,000 ML 80 ML IVCONT (17:05)
[2024-01-29] MEDS: Enoxaparin Sodium 40 MG/0.4 ML SYRINGE SUBCUT (17:06)
[2024-01-29 17:20] LABS: Glucose, Whole Blood 82 mg/dL (60-115)
[2024-01-29 19:37] LABS: Glucose, Whole Blood 118 mg/dL (60-115)
[2024-01-29] MEDS: Atorvastatin Calcium 10 MG TABLET PO (20:04)
[2024-01-29] MEDS: Gabapentin 100 MG CAPSULE PO (20:05)
[2024-01-29] MEDS: cloNIDine HCL 0.1 MG TABLET PO (20:05)
[2024-01-29] MEDS: LORazepam 0.5 MG TABLET PO (20:05)
[2024-01-29] MEDS: Insulin Glargine,Hum.rec.anlog 100 UNIT/ML 10 ML VIAL 35 UNIT SUBCUT (20:06)
[2024-01-30] MEDS: Acetaminophen 325 MG TABLET 650 MG PO ×2 (00:20→06:34)
[2024-01-30] MEDS: Melatonin 3 MG TABLET 6 MG PO (00:20)
[2024-01-30] MEDS: LORazepam 0.5 MG TABLET PO (01:14)
[2024-01-30 04:00] VITALS: BP 149/67; PULSE 58; RESP 18; TEMP 37; O2SAT 97
[2024-01-30 07:30] LABS: Glucose, Whole Blood 151 mg/dL (60-115)
[2024-01-30 07:47] VITALS: BP 163/67; PULSE 59; RESP 20; TEMP 36.1; O2SAT 96
[2024-01-30] MEDS: Aspirin Enteric Coated 81 MG TABLET.DR PO (08:01)
[2024-01-30] MEDS: Divalproex Sodium Sprinkles 125 MG CAP.DR.SPR PO (08:01)
[2024-01-30] MEDS: Insulin Lispro 100 UNIT/ML 3 ML VIAL SUBCUT ×2 (08:01→11:36)
[2024-01-30] MEDS: Gabapentin 100 MG CAPSULE PO (08:01)
[2024-01-30] MEDS: Insulin Glargine,Hum.rec.anlog 100 UNIT/ML 10 ML VIAL 35 UNIT SUBCUT (08:01)
[2024-01-30] MEDS: Levothyroxine Sodium 125 MCG TABLET PO (08:01)
[2024-01-30] MEDS: Cholecalciferol (Vitamin D3) 25 MCG TABLET PO (08:01)
[2024-01-30] MEDS: cloNIDine HCL 0.1 MG TABLET PO (08:01)
[2024-01-30] MEDS: 0.9 % Sodium Chloride Flush 3 ML SYRINGE IVFLUSH (08:02)
--- NOTE | 2024-01-30 10:26 | P.DS_ITS ---
DS: Providers Provider Date of Service: 01/30/24 Date of admission: 01/29/24 16:12 Date of discharge: 01/30/24 Primary care physician: Bhakti Rodgers MD Consults: 01/29/24 18:19 Consult to Wound Care Routine Reason for consultation: rash under bilateral breasts/?fungal Attending physician on discharge: Michael Hogue Discharging clinician: Padmini Martins DS: Diagnosis Discharge Diagnosis (1) Migraine: Status: Acute DS: Summary Hospital Course Hospital Course: From H&P on the day of admission This is a 73-year-old female with history of complex migraines who presents to the emergency department with complaints of left-sided numbness tingling and weakness associated with migraine headache. Patient reports symptoms started this morning with left-sided numbness and tingling starting 1st and progressing to weakness on the left side of her body followed by onset of severe headache. She has history of complex migraines in multiple admissions for the same. She reports her symptoms are similar to in the past. She was able to take a dose of her Ubrelvy as well as Ativan prior to come into the emergency department her left-sided weakness has resolved and her headache has improved but has not completely resolved at this time. In the emergency department she had brain CT which showed no acute changes. Patient gray s had significant neurological workup in the past with similar presentation here at [facility] as well as [facility]. Previous presentations have been associated with encephalopathy and sometimes with fever. Patient is currently awake alert with no evidence of confusion and no fever at this time. She denies any other associated complaints. According to her her migraines have been fairly well-controlled on Ubrelvy. Left-sided weakness Likely secondary to complex migraine, pt with hx of similar presentations; workup in past has included LP, 24 hour EEG, CT and MRI of head, all negative currently awake, alert with no confusion or neurological symptoms CT negative for stroke. left side weakness resolved. takes Ubrelvy at home for complex migraines, took a dose prior to arrival and received morphine with good effect, headache significantly improved. Headache completely resolved. Was able to ambulate without difficulty. Symptoms consistent with complex migraine as per her history. Continue use of Ubrelvy as needed for migraines. Outpatient follow-up with PCP as needed Time Attestation Discharge Coordination Time (in mins): 32 Quality: Safe Use of Opioids Does Pt have an Active Cancer Diagnosis on the Problem List?: No Quality: Stroke Does the patient have a stroke diagnosis?: No Physical Exam Vital Signs: Vital Signs: Last Vital Signs Temp 97.0 F 01/30/24 07:47 Pulse 59 01/30/24 07:47 Resp 20 01/30/24 07:47 BP 163/67 H 01/30/24 07:47 Pulse Ox 96 01/30/24 07:47 O2 Del Method Room Air 01/30/24 07:47 BMI result Body Mass Index 36.9 Const: General: cooperative, comfortable, no acute distress, alert and awake Nutritional Appearance: obese Orientation/consciousness: patient oriented x3 Resp: Effort & Inspection: normal respiratory effort, able to speak in complete sentences, no respiratory distress and no use of accessory muscles Auscultation: clear to auscultation bilaterally Cardio: Rate: regular rate GI: Inspection: No distended Palpation (GI): Soft to palpation and nontender Neuro: General: patient oriented x3, moves all extremities and CN's II-XI intact bilaterally DS: Data Data Completed and Pending Completed studies during hospitalization [Text1]: Procedures Drainage of Spinal Canal, Percutaneous Approach, Diagnostic (09/28/22) Insertion of Infusion Device into Superior Vena Cava, Percutaneous Approach (04/28/23) Ultrasonography of Superior Vena Cava, Guidance (04/28/23) Labs on day of discharge: Laboratory Results - last 24 hr 01/29/24 01/29/24 01/29/24 11:03 11:21 14:56 WBC 8.4 RBC 4.07 L Hgb 12.0 Hct 35.9 L MCV 88.2 MCH 29.5 MCHC 33.4 RDW 13.2 Plt Count 244 MPV 11.5 Immature Gran % (Auto) 0.4 Neut % (Auto) 54.8 Lymph % (Auto) 31.5 Routt % (Auto) 10.1 Eos % (Auto) 2.7 Baso % (Auto) 0.5 Lymph # (Auto) 2.7 Routt # (Auto) 0.9 Eos # (Auto) 0.2 Baso # (Auto) 0.0 Abs Immat Gran (auto) 0.03 Absolute Neuts (auto) 4.6 Absolute Nucleated RBC 0.000 Nucleated RBC % (auto) 0.0 Sodium 142 Potassium 4.3 Chloride 105 Carbon Dioxide 28 Anion Gap 13 BUN 23 H Creatinine 1.12 Estim Creat Clear Calc 61.4 Estimated GFR 48 POC Glucose Random Glucose 185 H Calcium 9.0 Total Bilirubin 1.2 H Direct Bilirubin 0.4 AST 36 H ALT 40 H Alkaline Phosphatase 119 H Total Creatine Kinase 58 Troponin I High Sens < 2.7 B-Natriuretic Peptide 25 Total Protein 6.9 Albumin 3.6 Lipase 14 Urine Color Yellow Urine Appearance Clear Urine pH 6.0 Ur Specific [place] 1.015 Urine Protein Negative Urine Glucose (UA) Negative Urine Ketones Negative Urine Blood Negative Urine Nitrite Negative Ur Leukocyte Esterase Negative COVID-19 (MARI) Negative COVID-19 Clin Com See Note Influenza Type A (PCR) NEGATIVE Influenza Type B (PCR) NEGATIVE RSV RNA Qual (PCR) NEGATIVE SARS-CoV-2 RNA (RT-PCR) NEGATIVE 01/29/24 01/29/24 01/30/24 17:12 19:09 07:22 WBC RBC Hgb Hct MCV MCH MCHC RDW Plt Count MPV Immature Gran % (Auto) Neut % (Auto) Lymph % (Auto) [place] % (Auto) Eos % (Auto) Baso % (Auto) Lymph # (Auto) [place] # (Auto) Eos # (Auto) Baso # (Auto) Abs Immat Gran (auto) Absolute Neuts (auto) Absolute Nucleated RBC Nucleated RBC % (auto) Sodium Potassium Chloride Carbon Dioxide Anion Gap BUN Creatinine Estim Creat Clear Calc Estimated GFR POC Glucose 82 118 H 151 H Random Glucose Calcium Total Bilirubin Direct Bilirubin AST ALT Alkaline Phosphatase Total Creatine Kinase Troponin I High Sens B-Natriuretic Peptide Total Protein Albumin Lipase Urine Color Urine Appearance Urine pH Ur Specific [place] Urine Protein Urine Glucose (UA) Urine Ketones Urine Blood Urine Nitrite Ur Leukocyte Esterase COVID-19 (MARI) COVID-19 Clin Com Influenza Type A (PCR) Influenza Type B (PCR) RSV RNA Qual (PCR) SARS-CoV-2 RNA (RT-PCR) Discharge Plan Discharge Anticipated Discharge Date/Time: 01/30/24 09:42 Patient Disposition: Home, Self-Care Discharge Diagnosis: Complex migraine Referrals: Bhakti Rodgers MD [Primary Care Provider] - 1 Week Discharge Medications: Continued acetaminophen [Tylenol Arthritis Pain] 650 mg tablet extended release 650 mg PO Q8H PRN (Reason: pain) Qty: 30 0RF clonidine HCl 0.1 mg tablet 0.1 mg PO TID (DME) FreeStyle Lite Strips Strip 1 strip MISCELLANEOUS TID simvastatin 20 mg tablet 20 mg PO BEDTIME insulin lispro 100 unit/mL insulin pen 1 sliding scale dose subcut TIDAC Protocol: Insulin Correction Scale Less than or equal to 110 ---- Give (units): 0 111 to 150 Give (units): 33 151 to 200 Give (units): 37 201 to 250 Give (units): 41 251 to 300 Give (units): 43 301 to 350 Give (units): 45 Greater than 350 Give (units): 47 Call MD if Blood Glucose > : 400 Rx Instructions: inject subq 3x daily with meals per sliding scale 80-99 inject 31 units 100-149 inject 33 units 150-199 inject 37 units 200-249 inject 41 units 250-299 inject 43 units 300-349 inject 45 units 350-399 inject 47 units 400 and higher: inject 49 units and call MD (DME) pen needle, diabetic [BD Ultra-Fine Micro Pen Needle] 32 gauge x 1/4 needle MISCELLANEOUS Ubrelvy 100 mg tablet 100 mg PO Q2H PRN (Reason: Migraine Headache) Rx Instructions: take at onset of migraine. MRX1 after 2 hours. Do not exceed 2 doses in 24 hours levothyroxine 125 mcg tablet 125 mcg PO DAILY@0600 insulin glargine [Lantus Solostar U-100 Insulin] 100 unit/mL (3 mL) insulin pen 52 unit subcut BID Rx Instructions: inject 52 units subq in the morning (8am) and 52 units at night (8pm) aspirin 81 mg Tablet,Delayed Release (Dr/Ec) 81 mg PO DAILY cholecalciferol (vitamin D3) 25 mcg (1,000 unit) Tablet 25 mcg PO DAILY lorazepam 0.5 mg tablet 0.5 mg PO DAILY PRN (Reason: anxiety) lorazepam [Ativan] 0.5 mg tablet 0.5 mg PO BEDTIME divalproex [Depakote] 125 mg tablet,delayed release (DR/EC) 125 mg PO DAILY gabapentin 100 mg capsule 100 mg PO TID Discharge Orders: Discharge Order (Routine); Ordered 01/30/24 Ordered By: Padmini Martins Activity on Discharge: As tolerated Stand Alone Forms: Patient Portal Discharge page Print Language: Frisian Care Plan Goals: see below Health Concerns: left side weakness complex migraine Plan of Treatment: Symptoms due to history of complex migraine. No further workup recommended at this time. continue using Ubrelvy as needed for migraines outpatient follow up with PCP as needed Assessment: see discharge summary
[2024-01-30 11:11] LABS: Glucose, Whole Blood 274 mg/dL (60-115)
[2024-01-30] MEDS: Flu Vacc TS2024-25(6mos up)/PF 0.5 ML SYRINGE IM (11:37)
--- NOTE | 2024-01-30 12:29 | MHC.CM.PN ---
PT LIVES WITH HER AND GRANDDAUGHTER AND IS INDEPENDENT WITH CARE SHE HAS A WALKER BUT USES HER CANE USUALLY HCP ON FILE PCP: CINTHIA FULLER OBSERVATION NOTICE DELIVERED DC HOME TODAY WITH NO SERVICES TO TRANSPORT
== END 2024-01-30 13:15 | disposition home or self-care (01) ==
LOC: HO.ED 14:21 → HO.EDOVER 16:32 → HO.IMC 16:45
PROVIDERS: Admitting Provider Physician Assistant Medical; Emergency Provider Emergency Medicine; PCP Internal Medicine; Visit Provider Physician Assistant Medical
DX: G43.909 Migraine, unspecified, not intractable, without status migrainosus (principal); R53.1 Weakness; R52 Pain, unspecified; E78.5 Hyperlipidemia, unspecified; E11.22 Type 2 diabetes mellitus with diabetic chronic kidney disease; I12.9 Hypertensive chronic kidney disease with stage 1 through stage 4 chronic kidney disease, or unspecified chronic kidney disease; N18.2 Chronic kidney disease, stage 2 (mild); G45.9 Transient cerebral ischemic attack, unspecified; R20.2 Paresthesia of skin; E03.9 Hypothyroidism, unspecified; F39 Unspecified mood [affective] disorder; E66.01 Morbid (severe) obesity due to excess calories; Z68.36 Body mass index [BMI] 36.0-36.9, adult; R74.01 Elevation of levels of liver transaminase levels; Z79.899 Other long term (current) drug therapy; Z23 Encounter for immunization; Z03.818 Encounter for observation for suspected exposure to other biological agents ruled out
CPT/HCPCS: 0241U; 36415; 70450; 71045; 80048; 80076; 81003; 82550; 82947; 83690; 83880; 84484; 85025; 87635; 90471; 90656; 93005; 96361; 96372; 96374; 99222; 99285; J1650; J2270; J7120

== ENCOUNTER → 2024-01-29 16:12 | Outpatient (BNV) | payer MEDICARE, SELFPAY | PROVIDERS: Admitting Provider Physician Assistant Medical; Emergency Provider Emergency Medicine; PCP Internal Medicine; Visit Provider Physician Assistant Medical | DX: G43.909 Migraine, unspecified, not intractable, without status migrainosus (principal) | CPT/HCPCS: 99223; 99239 ==

== ENCOUNTER 2024-03-22 15:38 | Outpatient (AMB) | payer MEDICARE, SELFPAY ==
--- NOTE | 2024-03-22 15:45 | HO.NEPHOV_ITS ---
Vital Signs 03/22/24 15:47 Height 5 ft 9 in Weight 249 lb 6 oz BMI 36.8 BP 130/60 Blood Pressure Location Rt brachial Position Sitting Pulse 85 Pulse Source Pulse Oximeter Pulse Oximetry (%) 98 Oxygen Delivery Method Room Air Intake Visit Reasons: Hypertension-LVM Imaging Services Director Required: No Accompanied by: Spouse Allergies Iodinated Contrast Media [IVP DYE] Allergy (Severe, Verified 03/22/24 15:46) SEDATION,TACHYCARDIA azithromycin Allergy (Unknown, Verified 03/22/24 15:46) Hives erythromycin base [ERYTHROMYCIN BASE] Allergy (Unknown, Verified 03/22/24 15:46) HIVES metformin Adverse Reaction (Unknown, Verified 03/22/24 15:46) Diarrhea HPI Comments Details: Charissa was seen in follow-up of her mild chronic kidney disease and hypertension. Her blood sugar control is not well controlled. She does not have any fever, suprapubic pain, dysuria, hematuria, nausea, vomiting, fever, chills or rigors. She feels her thyroid function is under control her on levothyroxine. She is tolerating statins. She does not have any chest pain, shortness of breath, proximal nocturnal dyspnea, orthopnea, pedal edema, orthostatic symptoms, new skin rashes, headache, joint swellings. She has not been taking any nonsteroidal anti-inflammatory medications and tries to keep up with good hydration. She has history of breast cancer remotely. She has lung nodule which is followed up by Dr. De Leon. She has left shoulder pain and has physiatry. She had taken Jardiance in the past [facility] Medical History Migraine Type 2 diabetes mellitus CKD (chronic kidney disease) stage 2, GFR 60-89 ml/min Anxiety Obstructive sleep apnea Encephalitis Hypothyroid HTN (hypertension) HLD (hyperlipidemia) Diabetes Complicated migraine Surgical History Hx of left mastectomy Hx of cholecystectomy H/O section Family History Mother Lung cancer Diabetes Depression Daughter Alcohol abuse Father FH: cholecystectomy Social History Household Members: Children Housing: House Do you presently have visiting nurse or other home services: Yes Unable to assess alcohol history related to: Unable to respond Alcohol intake: never Comment: 1 TO 1 SITTER Patient Tobacco Use Status: Never used Tobacco e-Cigarette/Vaping Use: Never Used Second Hand Smoke Exposure: No Advance Directives Date on File: 09/28/22 service: No Current occupational status: retired Review of Systems Const All systems reviewed & are unremarkable except as noted in HPI and below Physical Exam Vital Signs: Last Vital Signs Pulse 85 03/22/24 15:47 BP 130/60 03/22/24 15:47 Pulse Ox 98 03/22/24 15:47 Oxygen Delivery Method Room Air 03/22/24 15:47 BMI result Body Mass Index 36.8 Const General: comfortable and no acute distress Orientation/consciousness: patient oriented x3 HEENT Head: Yes normocephalic Mouth: Normal oral and palatal mucosa present Eyes EOM: EOMs intact bilaterally Neck Neck: Yes supple Resp Auscultation: clear to auscultation bilaterally Cardio Jugular venous distension: no JVD Rate: regular rate GI Palpation (GI): Soft to palpation Auscultation: normal bowel sounds General: Yes no CVA tenderness Back/Spine/Pelvis Back: no CVA tenderness Skin General skin exam: no rashes or lesions noted Neuro General: patient oriented x3 and moves all extremities Extrem General: Yes no pedal edema Results Reviewed Nephrology Results: Hgb 12.0 g/dl (12.0-16.0) 01/29/24 WBC 8.4 X10*3/uL (4.8-10.8) 01/29/24 Plt Count 244 X10*3/uL (160-400) 01/29/24 Sodium 142 mmol/L (135-145) 01/29/24 Potassium 4.3 mmol/L (3.3-5.1) 01/29/24 Chloride 105 mmol/L (96-108) 01/29/24 Carbon Dioxide 28 mmol/L (22-29) 01/29/24 BUN 23 mg/dL (9-16) H 01/29/24 Creatinine 1.12 mg/dL (0.5-1.4) 01/29/24 Calcium 9.0 mg/dL (8.4-10.2) 01/29/24 Urine Protein Negative mg/dL (Neg-Trace) 01/29/24 Assessment & Plan Assessment & Plan (1) HTN (hypertension): Code(s): I10 - Essential (primary) hypertension Category: Medical Qualifiers: Hypertension type: primary hypertension Qualified Code(s): I10 - Essential (primary) hypertension Plan She is diabetic and hypertensive. Her blood sugars are suboptimally controlled, but better. She is a great candidate for Jardiance. Her blood pressure is at goal. She needs to loose more weight. She was counseled to be more active and lose some weight. She does not take any nonsteroidal anti-inflammatory medications and keep herself hydrated. I did not make any medication changes today. Labs/FU ordered Orders: Orders Creatinine 8 Months I10 - Essential (primary) hypertension Electrolytes 8 Months I10 - Essential (primary) hypertension Protein Creatinine Ratio, Ur 8 Months I10 - Essential (primary) hypertension Blood Urea Nitrogen 8 Months I10 - Essential (primary) hypertension Coding Level of Care Code Est Pt Level 4 (81169) Diagnoses Primary hypertension I10 Hypertension type: primary hypertension
[2024-03-22 15:47] VITALS: BP 130/60; PULSE 85; O2SAT 98; BMI 36.8
== END 2024-03-22 16:04 | disposition home or self-care (01) ==
PROVIDERS: PCP Internal Medicine; Visit Provider Internal Medicine Nephrology
DX: I12.9 Hypertensive chronic kidney disease with stage 1 through stage 4 chronic kidney disease, or unspecified chronic kidney disease (principal); E11.22 Type 2 diabetes mellitus with diabetic chronic kidney disease; N18.2 Chronic kidney disease, stage 2 (mild)
CPT/HCPCS: 99214

== ENCOUNTER → 2024-03-22 15:38 | Outpatient (BNVA) | payer MEDICARE, SELFPAY | PROVIDERS: PCP Internal Medicine; Visit Provider Internal Medicine Nephrology | DX: I12.9 Hypertensive chronic kidney disease with stage 1 through stage 4 chronic kidney disease, or unspecified chronic kidney disease (principal); N18.9 Chronic kidney disease, unspecified | CPT/HCPCS: 99212 ==

== ENCOUNTER 2024-04-12 09:48 | Outpatient (AMB) | payer MEDICARE, SELFPAY ==
[2024-04-12 10:17] VITALS: BP 118/60; PULSE 90; O2SAT 96; BMI 36.3
--- NOTE | 2024-04-12 10:17 | MHC.OFFVIS ---
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: No Accompanied by: Daughter Allergies Iodinated Contrast Media [IVP DYE] Allergy (Severe, Verified 04/12/24 10:19) SEDATION,TACHYCARDIA azithromycin Allergy (Unknown, Verified 04/12/24 10:19) Hives erythromycin base [ERYTHROMYCIN BASE] Allergy (Unknown, Verified 04/12/24 10:19) HIVES metformin Adverse Reaction (Unknown, Verified 04/12/24 10:19) Diarrhea Medication List - Last Reconciled 04/12/24 by ANTHONY Almonte acetaminophen ER (Tylenol Arthritis Pain) 650 mg PO Q8H PRN aspirin 81 mg PO DAILY blood sugar diagnostic (FreeStyle Lite Strips) cholecalciferol (vitamin D3) 25 mcg PO DAILY clonidine HCl 0.1 mg PO TID divalproex (Depakote) 125 mg PO DAILY gabapentin 100 mg PO TID insulin glargine (Lantus Solostar U-100 Insulin) 52 units subcut BID insulin lispro 1 sliding scale dose See Protocol subcut TIDAC levothyroxine 125 mcg PO DAILY@0600 lorazepam 0.5 mg PO DAILY PRN lorazepam (Ativan) 0.5 mg PO BEDTIME 30 days pen needle, diabetic (BD Ultra-Fine Micro Pen Needle) simvastatin 20 mg PO BEDTIME ubrogepant (Ubrelvy) 100 mg PO Q2H PRN HPI Comments Details: 73-yr-old female presents for f/u visit for migraine, accompanied by her dtr. Maryann. Dtr reports that pt has migraine- her typical migraine a/w inability to speak, loss of body control, slurred speech, fever, and cold sweats. Her last full attack was in Sep, [place] [facility] [place] Ajovy as pt still seemed to be having the migraine episodes. They are using Ubrelvy and lorazepam p.r.n. at onset of milder attacks, which does seem to be helpful. The Ubrelvy does seem to cause some abdominal bubbling. Daughter notes that she has just started to have episode of right sided hemiplegic migraine, her older sister has similar symptoms, and her mother's sister also has symptoms of hemiplegic migraine. They have never had genetic testing. Her daughter is concerned about patient's memory. Patient is often home alone. Pt has been crying more. The littlest things upset her. States she is repeating herself and hesitating to initiate speech at times. Sometimes she stares off into space, more so after taking her divalproex dose. She recently went without checking her blood sugar for a few days because she had ran out of her test strips. Her daughter does help her manage her medications and fill her pill boxes. She went to her sister's house for Thanksgiving, and did not know where she was. She is not sleeping well. During cognitive eval today, patient has visible tremor. Patient states she has had a tremor for some time. She endorses hyposmia for a long time, soft speech, occasional orthostatic lightheadedness, generalized stiffness, sleep talking, sleep behaviors, sleep apnea but does not use a CPAP machine. She denies hallucinations, constipation. [facility] Medical History Migraine Type 2 diabetes mellitus CKD (chronic kidney disease) stage 2, GFR 60-89 ml/min Anxiety Obstructive sleep apnea Encephalitis Hypothyroid HTN (hypertension) HLD (hyperlipidemia) Diabetes Complicated migraine Surgical History Hx of left mastectomy Hx of cholecystectomy H/O section Family History Mother Lung cancer Diabetes Depression Daughter Alcohol abuse Father FH: cholecystectomy Social History Household Members: Children Housing: House Do you presently have visiting nurse or other home services: Yes Unable to assess alcohol history related to: Unable to respond Alcohol intake: never Comment: 1 TO 1 SITTER Patient Tobacco Use Status: Never used Tobacco e-Cigarette/Vaping Use: Never Used Second Hand Smoke Exposure: No Advance Directives Date on File: 09/28/22 service: No Current occupational status: retired Physical Exam Vital Signs: Last Vital Signs Pulse 90 04/12/24 10:17 BP 118/60 04/12/24 10:17 Pulse Ox 96 04/12/24 10:17 Oxygen Delivery Method Room Air 04/12/24 10:17 BMI result Body Mass Index 36.3 Const General: cooperative and no acute distress Resp Effort & Inspection: normal respiratory effort and able to speak in complete sentences Neuro Other: General: A&O x's 3, with mild short-term memory lapses. Very good clock drawing. Expression: Mildly decreased Voice: Softer voice Tremor: LUE rest tremor. Mild RUE tremor with writing. Tone: BUE tone Dyskinesia: None FFM: Decreased with poor fluidity, more so on left Finger-Nose: Intact with mild tremor BUE ARON: BUE poor fluidity Foot taps: Decreased, more so on left Gait: Slow to stand, decreased arm swing, shorter steps. Psych: Pleasant affect, crying toward end of visit as she was feeling overwhelmed. Orientation What is the (year) (season) (date) (day) (month)?: year, season, date, day and month Where are we (state) (county) (town or city) (hospital) (floor)?: state, county, town or city, hospital/clinic and floor Registration Name of 3 unrelated objects clearly and slowly, then ask patient to repeat all 3 of them. (1st repeat determines score. Make sure they can repeat all three): object 1, object 2 and object 3 Attention & Calculation (CHOOSE ONE) Ask pt to begin with 100 & count backward by 7. Stop after 5 repeats. If pt cannot ask them to spell the word WORLD backward.: 93, 86, 79, 72 and 65 Language Show patient a wristwatch & ask what it is. Repeat for pencil.: watch and pencil Ask the patient to repeat the phrase 'No ifs, ands, or buts' after you.: incorrect Ask the patient to 'take a piece of paper with their right hand' 'fold paper in half' 'place paper on floor': take paper in right hand, fold paper in half and place paper on floor Print the sentence 'CLOSE YOUR EYES' on a piece. If patient actually closes eyes then score.: followed written direction Give patient a blank piece of paper & ask to write a sentence. Score if it contains a noun & verb.: sentence contains subject and verb Ask patient to copy figure of intersecting pentagons exactly. Score if all 10 angles & 2 intersects are included.: all 10 angles present & 2 are intersected Score Score: 26 Assessment & Plan Assessment & Plan (1) Migraine: Code(s): G43.909 - Migraine, unspecified, not intractable, without status migrainosus Category: Medical (2) Mood disorder: Code(s): F39 - Unspecified mood [affective] disorder Category: Medical (3) Sleep difficulties: Code(s): G47.9 - Sleep disorder, unspecified Category: Medical (4) Tremor: Code(s): R25.1 - Tremor, unspecified Category: Medical Plan For migraine, suspicious of hemiplegic migraine: Discuss obtaining genetic testing for hemiplegic migraine panel. Patient would prefer direct testing, if testing could be affordable. We will check cost and confirmed with patient. Continue Depakote 125mg bid- this may help mood, migraine, and may prevent these acute episodes of encephalopathy. Continue Ubrelvy prn for now- as I would avoid triptans d/t variable BP/HTN. Continue Lorazepam 0.5mg- may take qhs and 1 extra tab per day prn- may take at onset of migraine attack w/ Ubrelvy. Previous migraine trials: venlafaxine, also topiramate, risperdal, primidone, lisinopril. Future considerations: Increasing Depakote, trialing verapamil or Acetazolamide For cognitive and tremor symptoms: MMSE 26 and very good clock drawing. Patient advised to undergo DaTSCAN to assess for dopaminergic deficiency Check labs for common etiologies Will follow-up upon review of above and patient to follow-up in clinic in 3-6 months or sooner prn. Orders: Orders TSH reflex Free T4 Today D64.9 - Anemia, unspecified, E03.9 - Hypothyroidism, unspecified, F09 - Unspecified mental disorder due to known physiological condition, I10 - Essential (primary) hypertension, R25.1 - Tremor, unspecified Comprehensive Met. Panel Today D64.9 - Anemia, unspecified, F09 - Unspecified mental disorder due to known physiological condition, I10 - Essential (primary) hypertension, R25.1 - Tremor, unspecified Vitamin B1 Today D64.9 - Anemia, unspecified, F09 - Unspecified mental disorder due to known physiological condition, I10 - Essential (primary) hypertension, R25.1 - Tremor, unspecified HIV Ab/Ag Today D64.9 - Anemia, unspecified, F09 - Unspecified mental disorder due to known physiological condition, I10 - Essential (primary) hypertension, R25.1 - Tremor, unspecified Methylmalonic Acid Today D64.9 - Anemia, unspecified, F09 - Unspecified mental disorder due to known physiological condition, I10 - Essential (primary) hypertension, R25.1 - Tremor, unspecified DaTscan Today F09 - Unspecified mental disorder due to known physiological condition, F39 - Unspecified mood [affective] disorder, G47.50 - Parasomnia, unspecified, R25.1 - Tremor, unspecified Complete Blood Count Auto Diff Today D64.9 - Anemia, unspecified, F09 - Unspecified mental disorder due to known physiological condition, I10 - Essential (primary) hypertension, R25.1 - Tremor, unspecified Vitamin B12 and Folate Today D64.9 - Anemia, unspecified, F09 - Unspecified mental disorder due to known physiological condition, I10 - Essential (primary) hypertension, R25.1 - Tremor, unspecified Erythrocyte Sedimentation Rate Today D64.9 - Anemia, unspecified, F09 - Unspecified mental disorder due to known physiological condition, I10 - Essential (primary) hypertension, R25.1 - Tremor, unspecified BLUE Reflex Titer and Pattern Today D64.9 - Anemia, unspecified, F09 - Unspecified mental disorder due to known physiological condition, I10 - Essential (primary) hypertension, R25.1 - Tremor, unspecified Rheumatoid Factor Today D64.9 - Anemia, unspecified, F09 - Unspecified mental disorder due to known physiological condition, I10 - Essential (primary) hypertension, R25.1 - Tremor, unspecified Folate Today D64.9 - Anemia, unspecified, F09 - Unspecified mental disorder due to known physiological condition, I10 - Essential (primary) hypertension, R25.1 - Tremor, unspecified Ceruloplasmin Today D64.9 - Anemia, unspecified, F09 - Unspecified mental disorder due to known physiological condition, I10 - Essential (primary) hypertension, R25.1 - Tremor, unspecified Syphilis Screen Today D64.9 - Anemia, unspecified, F09 - Unspecified mental disorder due to known physiological condition, I10 - Essential (primary) hypertension, R25.1 - Tremor, unspecified Homocysteine Today D64.9 - Anemia, unspecified, F09 - Unspecified mental disorder due to known physiological condition, I10 - Essential (primary) hypertension, R25.1 - Tremor, unspecified Coding Level of Care Code Est Pt Level 4 (71747) Complex EM visit Add On G2211 Diagnoses Migraine G43.909 Mood disorder F39 Sleep difficulties G47.9 Tremor R25.1
== END 2024-04-12 11:48 | disposition home or self-care (01) ==
PROVIDERS: PCP Internal Medicine; Visit Provider Nurse Practitioner Family
DX: G43.909 Migraine, unspecified, not intractable, without status migrainosus (principal); F39 Unspecified mood [affective] disorder; G47.9 Sleep disorder, unspecified; R25.1 Tremor, unspecified
CPT/HCPCS: 99214; G2211

== ENCOUNTER → 2024-04-12 09:48 | Outpatient (BNVA) | payer MEDICARE, SELFPAY | PROVIDERS: PCP Internal Medicine; Visit Provider Nurse Practitioner Family | DX: G43.909 Migraine, unspecified, not intractable, without status migrainosus (principal); G47.9 Sleep disorder, unspecified; F39 Unspecified mood [affective] disorder; R25.1 Tremor, unspecified | CPT/HCPCS: 99212 ==

== ENCOUNTER 2024-04-20 09:05 | Outpatient (REF) | payer MEDICARE, SELFPAY ==
[2024-04-20 13:26] LABS: Basophils Percent Auto 0.4 % (0-2); Eosinophils Absolute Auto 0.2 X10*3/uL (0.0-0.4); Eosinophils Percent Auto 2.3 % (0-4); Hematocrit 35.9 % (37.0-47.0); Hemoglobin 12.3 g/dl (12.0-16.0); Imm Gran Abs Auto 0.05 X10*3/uL (0.00-0.03); Imm Gran Pct Auto 0.6 % (0.0-0.4); Lymphocytes Absolute Auto 2.4 X10*3/uL (1.2-4.9); Lymphocytes Percent Auto 29.5 % (20-40); MANUAL DIFF FLAG SCAN; Mean Corpuscular HGB Conc 34.3 g/dl (31.0-35.0); Mean Corpuscular Hemoglobin 29.7 pg (27.0-33.0); Mean Corpuscular Volume 86.7 fL (80.0-98.0); Monocytes Absolute Auto 0.6 X10*3/uL (0.1-1.2); Monocytes Percent Auto 7.7 % (2-11); Neutrophils Absolute Auto 4.9 x10*3/uL (2.0-8.3); Neutrophils Percent Auto 59.5 % (45-73); PLT CLUMP 1; Red Blood Count 4.14 X10*6/uL (4.20-5.50); Red Cell Distribution Width 12.7 % (11.0-16.0); SCAN SMEAR FLAG 1
[2024-04-20 13:44] LABS: Rheumatoid Factor < 13.0 IU/mL (<15.0)
[2024-04-20 13:54] LABS: Alanine Aminotransferase 68 U/L (0-31); Albumin Level 3.6 g/dL (3.5-5.0); Alkaline Phosphatase 125 U/L (39-117); Anion Gap 13 (12-20); Aspartate Amino Transferase 56 U/L (5-31); Blood Urea Nitrogen 20 mg/dL (9-16); Calcium 9.4 mg/dL (8.4-10.2); Carbon Dioxide 25 mmol/L (22-29); Chloride 104 mmol/L (96-108); Estimated Glomerular Filt Rate > 60; Glucose Random 342 mg/dL (60-115); Potassium 4.4 mmol/L (3.3-5.1); Sodium 138 mmol/L (135-145)
[2024-04-20 13:56] LABS: Mean Platelet Volume 13.5 fL (9.4-12.3); Platelet Count 234 X10*3/uL (160-400); White Blood Count 8.2 X10*3/uL (4.8-10.8)
[2024-04-20 13:57] LABS: SLIDE REVIEW VERIFIED
[2024-04-20 14:01] LABS: Syphilis Screen Nonreactive (Nonreactive); TSH reflex Free T4 0.87 uIU/mL (0.32-4.0)
[2024-04-20 14:10] LABS: Erythrocyte Sedimentation Rate 16 MM/HR (0-20)
[2024-04-20 14:12] LABS: Folate 9.7 ng/mL (> or = 4.0); Vitamin B12 560 pg/mL (200-900)
[2024-04-21 05:14] LABS: Ceruloplasmin 25 mg/dL (14-48)
[2024-04-21 09:29] LABS: HIV AB/AG Nonreactive (Nonreactive); HIV Num 1 0.06 S/CO (0.00-0.99)
[2024-04-25 09:18] LABS: Anti Nuclear Antibody Screen POSITIVE (NEGATIVE)
[2024-04-26 09:48] LABS: Methylmalonic Acid 211 nmol/L (69-390)
[2024-04-28 15:04] LABS: Vitamin B1 20 nmol/L (8-30)
== END 2024-04-20 09:06 | disposition home or self-care (01) ==
LOC: HO.HMGCLDS 09:05
PROVIDERS: PCP Internal Medicine; Referring Provider Internal Medicine Nephrology; Visit Provider Nurse Practitioner Family
DX: I10 Essential (primary) hypertension (principal); R25.1 Tremor, unspecified; D64.9 Anemia, unspecified; F09 Unspecified mental disorder due to known physiological condition; E03.9 Hypothyroidism, unspecified; Z11.59 Encounter for screening for other viral diseases
CPT/HCPCS: 36415; 80053; 82390; 82607; 82746; 83090; 83921; 84425; 84443; 85025; 85652; 86038; 86039; 86431; 86780; 87389

== ENCOUNTER 2024-05-07 07:42 | Emergency (ER) | payer MEDICARE, SELFPAY ==
--- NOTE | ~2024-05-07 | CT_ITS ---
CLINICAL HISTORY: abd pain, r flank pain CT abdomen and pelvis without IV or oral contrast Comparison: CT/REG/SR - CT ABDOMEN PELVIS WO IV CON - 07/29/2023 11:38 PM EDT Findings: Lung bases show no active disease. Stable chronic pleural thickening and calcified pleural plaques dependent portion both lungs. The heart is not enlarged. No stones are identified in the kidneys, ureters or bladder. There is no hydronephrosis or perinephric stranding/fluid. Evaluation of the liver, spleen, adrenal glands and pancreas demonstrates no lesions. It should be noted that isodense masses may be obscured in the absence of intravenous contrast. Post cholecystectomy. Diverticulosis coli. No pathologically enlarged lymph nodes . No ascites demonstrated. Normal distention of the urinary bladder. Appendix not visualized. No vertebral body compression fractures or spondylolisthesis. No bony destructive lesions. Impression: 1. No nephrolithiasis or urinary tract obstruction demonstrated. 2. Post cholecystectomy. Diverticulosis coli. 3. Stable pleural thickening and calcified pleural plaques dependent portion both lungs. This document has been electronically signed by: Cristiano Crouch MD on 05/07/2024 10:28:24
[2024-05-07 07:44] VITALS: BP 174/72; PULSE 77; RESP 18; TEMP 35.9; O2SAT 96; BMI 42.5
[2024-05-07 08:02] LABS: MANUAL DIFF FLAG NO
[2024-05-07 08:03] LABS: Basophils Percent Auto 0.3 % (0-2); Eosinophils Absolute Auto 0.2 X10*3/uL (0.0-0.4); Hematocrit 36.9 % (37.0-47.0); Hemoglobin 12.7 g/dl (12.0-16.0); Imm Gran Abs Auto 0.02 X10*3/uL (0.00-0.03); Imm Gran Pct Auto 0.2 % (0.0-0.4); Lymphocytes Absolute Auto 3.4 X10*3/uL (1.2-4.9); Mean Corpuscular HGB Conc 34.4 g/dl (31.0-35.0); Mean Corpuscular Hemoglobin 30.2 pg (27.0-33.0); Mean Corpuscular Volume 87.6 fL (80.0-98.0); Mean Platelet Volume 11.2 fL (9.4-12.3); Monocytes Absolute Auto 0.9 X10*3/uL (0.1-1.2); Monocytes Percent Auto 9.3 % (2-11); Neutrophils Absolute Auto 4.7 x10*3/uL (2.0-8.3); Neutrophils Percent Auto 51.2 % (45-73); Platelet Count 268 X10*3/uL (160-400); Red Blood Count 4.21 X10*6/uL (4.20-5.50); Red Cell Distribution Width 12.7 % (11.0-16.0); White Blood Count 9.2 X10*3/uL (4.8-10.8)
--- NOTE | 2024-05-07 08:05 | ED_ITS ---
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 Patient states that her pain gradually started at 8:00 p.m. last night. Patient reports that she has had multiple episodes of diarrhea. No bloody or black stool. Patient also reports urinary frequency, she has a history of this, denies any significant changes. Denies any hematuria, dysuria, urinary urgency. She denies any fevers, chills, chest pain, shortness of breath, nausea or vomiting. Denies any recent antibiotic use. No sick contacts. MD elicited complaint: abdominal pain and flank pain Related Data Home Medications ?Medication ?Instructions ?Recorded ?Confirmed blood sugar diagnostic (FreeStyle 09/28/22 04/12/24 Lite Strips) clonidine HCl 0.1 mg tablet 0.1 mg PO TID 09/28/22 04/12/24 insulin lispro 100 unit/mL 1 sliding scale dose subcut TIDAC 09/28/22 04/12/24 subcutaneous pen pen needle, diabetic 32 gauge x 09/28/22 04/12/24 1/ (BD Ultra-Fine Micro Pen Needle) simvastatin 20 mg tablet 20 mg PO BEDTIME 09/28/22 04/12/24 ubrogepant 100 mg tablet (Ubrelvy) 100 mg PO Q2H PRN Migraine Headache 09/28/22 04/12/24 aspirin 81 mg tablet,delayed 81 mg PO DAILY 10/01/22 04/12/24 release cholecalciferol (vitamin D3) 25 25 mcg PO DAILY 10/01/22 04/12/24 mcg (1,000 unit) tablet levothyroxine 125 mcg tablet 125 mcg PO DAILY@0600 04/14/23 04/12/24 gabapentin 100 mg capsule 100 mg PO TID 12/22/23 04/12/24 insulin glargine 100 unit/mL (3 52 unit subcut BID 12/22/23 04/12/24 mL) subcutaneous pen (Lantus Solostar U-100 Insulin) divalproex 125 mg tablet,delayed 125 mg PO DAILY 01/29/24 04/12/24 release (Depakote) Previous Rx's ?Medication ?Instructions ?Recorded acetaminophen 650 mg 650 mg PO Q8H PRN pain #30 tabs 07/31/23 tablet,extended release (Tylenol Arthritis Pain) lorazepam 0.5 mg tablet (Ativan) 0.5 mg PO BID PRN anxiety 30 days 04/26/24 #45 tabs Allergies Allergy/AdvReac Type Severity Reaction Status Date / Time Iodinated Contrast Media Allergy Severe SEDATION,TA Verified 05/07/24 07:46 [IVP DYE] CHYCARDIA azithromycin Allergy Unknown Hives Verified 05/07/24 07:46 erythromycin base Allergy Unknown HIVES Verified 05/07/24 07:46 [ERYTHROMYCIN BASE] metformin AdvReac Unknown Diarrhea Verified 05/07/24 07:46 Review of Systems Review of Systems Yes all other systems are reviewed and are negative Constitutional: Reports as per [facility] Past Medical History Medical History (Updated 05/08/24 @ 00:01 by Joya Foster) Migraine Type 2 diabetes mellitus CKD (chronic kidney disease) stage 2, GFR 60-89 ml/min Anxiety Obstructive sleep apnea Encephalitis Hypothyroid HTN (hypertension) HLD (hyperlipidemia) Diabetes Complicated migraine Surgical History Hx of left mastectomy Hx of cholecystectomy H/O section Family History Family History Mother Lung cancer Diabetes Depression Daughter Alcohol abuse Father FH: cholecystectomy Social History Social History Household Members: Children Housing: House Do you presently have visiting nurse or other home services: Yes Unable to assess alcohol history related to: Unable to respond Alcohol intake: never Comment: 1 TO 1 SITTER Patient Tobacco Use Status: Never used Tobacco e-Cigarette/Vaping Use: Never Used Second Hand Smoke Exposure: No Advance Directives Date on File: 09/28/22 service: No Current occupational status: retired Physical Exam ED Vital Signs: Vital Signs - 24 hr 05/07/24 11:06 05/07/24 13:58 05/07/24 15:44 Temperature 97.7 F 97.8 F Pulse Rate 64 75 70 Respiratory Rate 16 18 18 Blood Pressure 147/68 H 155/52 H 150/72 H Pulse Oximetry 97 98 97 Oxygen Delivery Method Room Air Room Air BMI result Body Mass Index 42.5 Const Other: Patient is tearful General: cooperative and comfortable Orientation/consciousness: patient oriented x3 Limitations: no limitations HENMT Head: Yes normal to inspection, Yes normocephalic and Yes atraumatic Ears: hearing grossly normal bilaterally General nose exam: Normal external nose present Face and sinus: Yes normal facial exam Mouth: Normal oral and palatal mucosa present, oropharynx normal and moist mucous membranes Throat: Yes posterior oropharynx normal Eyes General: appearance normal, both eyes and all related structures Eyelids: Yes eyelids normal Conjunctivae: conjunctivae normal Sclerae: sclerae normal Pupils: Equal, round and reactive pupils present EOM: EOMs intact bilaterally Neck Neck: Yes normal visual inspection, Yes full ROM and Yes no lymphadenopathy Lymphatic: no lymphadenopathy noted Chest Chest palpation & inspection: normal inspection of the chest Resp Effort & Inspection: normal respiratory effort and able to speak in complete sentences Auscultation: clear to auscultation bilaterally, no crackles, no rales, no rhonchi and no wheezes Cardio Rate: regular rate Rhythm: regular rhythm Heart sounds: S1 normal heart sound present and S2 normal heart sound present GI Other: Obese abdomen, abdomen is soft, nontender, nondistended, she does have a well- healed eschar noted to skin full, no surrounding erythema or warmth. Inspection: Yes normal to inspection Skin General skin exam: no rashes or lesions noted Trauma: no lacerations or abrasions Wounds: no wounds Neuro General: patient oriented x3 and moves all extremities Cranial nerves: Yes Equal, round and reactive pupils present Extrem General: Yes normal to inspection Right upper extremity: normal to inspection Left upper extremity: normal to inspection Right lower extremity: normal to inspection Left lower extremity: normal to inspection Course Reevaluation(s) Reevaluation #1: CT scan revealing no nephrolithiasis or urinary tract obstruction. Most cholecystectomy, and diverticulosis coli, stable pleural thickening and calcified pleural plaque dependent portion on both lungs. Discussed findings with patient. She reports that the pain worsens with positional changes, which is suggestive of a musculoskeletal like injury. We are still awaiting a urine sample. Will await urine sample and re-evaluate. Time: 10:45 Reevaluation #2: UA noninfected. Pt feeling well, eager for discharge. Discussed overall workup with patient and daughter at bedside. They will f/u with PCP. Given strict return precautions. Pt stable for d.c. 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 On arrival, blood pressure elevated 174/72, all other vital signs within normal limits. She is speaking in full sentences, tearful, anxious appearing. She is here with her daughter. Patient has had right-sided flank pain, and right low back pain with diarrhea as well as urinary incontinence which started yesterday. She does have right-sided CVA tenderness. Abdomen is soft, obese, no rebound or guarding. Differential diagnoses include acute cystitis, diverticulitis, diverticulosis, obstructive uropathy, infectious diarrhea. She has a history of a cholecystectomy, otherwise no other abdominal surgeries. Plan: Labs, viral swabs, CT abdomen and pelvis Differential Diagnosis Differential Diagnoses: The differential diagnosis associated with the presentation includes See above Admission/Observation Consideration of admission/observation: Escalation of care including admission/observation considered Lab Data MDM Lab Attestation statement: I reviewed the patient's lab results. No leukocytosis, stable H&H, no evidence of MAGGY, slight transaminitis - similar to previous. viral swabs negative 05/07/24 07:59 05/07/24 08:40 Labs: Lab Results 05/07/24 05/07/24 05/07/24 Range/Units 07:59 08:06 08:40 WBC 9.2 (4.8-10.8) X10*3/uL RBC 4.21 (4.20-5.50) X10*6/uL Hgb 12.7 (12.0-16.0) g/dl Hct 36.9 L (37.0-47.0) % MCV 87.6 (80.0-98.0) fL MCH 30.2 (27.0-33.0) pg MCHC 34.4 (31.0-35.0) g/dl RDW 12.7 (11.0-16.0) % Plt Count 268 (160-400) X10*3/uL MPV 11.2 (9.4-12.3) fL Immature Gran % (Auto) 0.2 (0.0-0.4) % Neut % (Auto) 51.2 (45-73) % Lymph % (Auto) 37.0 (20-40) % [place] % (Auto) 9.3 (2-11) % Eos % (Auto) 2.0 (0-4) % Baso % (Auto) 0.3 (0-2) % Lymph # (Auto) 3.4 (1.2-4.9) X10*3/uL [place] # (Auto) 0.9 (0.1-1.2) X10*3/uL Eos # (Auto) 0.2 (0.0-0.4) X10*3/uL Baso # (Auto) 0.0 (0.0-0.2) X10*3/uL Abs Immat Gran (auto) 0.02 (0.00-0.03) X10*3/uL Absolute Neuts (auto) 4.7 (2.0-8.3) x10*3/uL Absolute Nucleated RBC 0.000 (0.0-0.012) X10*3/uL Nucleated RBC % (auto) 0.0 (0.0-0.2) /100WBC Sodium 140 (135-145) mmol/L Potassium 4.3 (3.3-5.1) mmol/L Chloride 107 (96-108) mmol/L Carbon Dioxide 26 (22-29) mmol/L Anion Gap 11 L (12-20) BUN 16 (9-16) mg/dL Creatinine 0.90 (0.5-1.4) mg/dL Estim Creat Clear Calc 70.3 Estimated GFR > 60 POC Glucose (60-115) mg/dL Random Glucose 158 H (60-115) mg/dL Calcium 8.7 D (8.4-10.2) mg/dL Magnesium 1.7 (1.6-2.6) mg/dL Total Bilirubin 1.0 (0.0-1.0) mg/dL AST 54 H (5-31) U/L ALT 59 H (0-31) U/L Alkaline Phosphatase 125 H (39-117) U/L Troponin I High Sens < 2.7 (<3.5-17.0) ng/L Total Protein 6.8 (6.5-8.0) g/dL Albumin 3.6 (3.5-5.0) g/dL Lipase 13 (8-78) U/L Urine Color Urine Appearance Urine pH (5.0-9.0) Ur Specific [place] (1.005-1.025) Urine Protein (Neg-Trace) mg/dL Urine Glucose (UA) (Negative) mg/dL Urine Ketones (Negative) mg/dL Urine Blood (Negative) Urine Nitrite (Negative) Ur Leukocyte Esterase (Negative) Influenza Type A (PCR) NEGATIVE (Negative) Influenza Type B (PCR) NEGATIVE (Negative) RSV RNA Qual (PCR) NEGATIVE (Negative) SARS-CoV-2 RNA (RT-PCR) NEGATIVE (Negative) 05/07/24 05/07/24 Range/Units 13:52 14:02 WBC (4.8-10.8) X10*3/uL RBC (4.20-5.50) X10*6/uL Hgb (12.0-16.0) g/dl Hct (37.0-47.0) % MCV (80.0-98.0) fL MCH (27.0-33.0) pg MCHC (31.0-35.0) g/dl RDW (11.0-16.0) % Plt Count (160-400) X10*3/uL MPV (9.4-12.3) fL Immature Gran % (Auto) (0.0-0.4) % Neut % (Auto) (45-73) % Lymph % (Auto) (20-40) % [place] % (Auto) (2-11) % Eos % (Auto) (0-4) % Baso % (Auto) (0-2) % Lymph # (Auto) (1.2-4.9) X10*3/uL [place] # (Auto) (0.1-1.2) X10*3/uL Eos # (Auto) (0.0-0.4) X10*3/uL Baso # (Auto) (0.0-0.2) X10*3/uL Abs Immat Gran (auto) (0.00-0.03) X10*3/uL Absolute Neuts (auto) (2.0-8.3) x10*3/uL Absolute Nucleated RBC (0.0-0.012) X10*3/uL Nucleated RBC % (auto) (0.0-0.2) /100WBC Sodium (135-145) mmol/L Potassium (3.3-5.1) mmol/L Chloride (96-108) mmol/L Carbon Dioxide (22-29) mmol/L Anion Gap (12-20) BUN (9-16) mg/dL Creatinine (0.5-1.4) mg/dL Estim Creat Clear Calc Estimated GFR POC Glucose 96 (60-115) mg/dL Random Glucose (60-115) mg/dL Calcium (8.4-10.2) mg/dL Magnesium (1.6-2.6) mg/dL Total Bilirubin (0.0-1.0) mg/dL AST (5-31) U/L ALT (0-31) U/L Alkaline Phosphatase (39-117) U/L Troponin I High Sens (<3.5-17.0) ng/L Total Protein (6.5-8.0) g/dL Albumin (3.5-5.0) g/dL Lipase (8-78) U/L Urine Color Yellow Urine Appearance Clear Urine pH 5.5 (5.0-9.0) Ur Specific [place] 1.015 (1.005-1.025) Urine Protein Negative (Neg-Trace) mg/dL Urine Glucose (UA) Negative (Negative) mg/dL Urine Ketones Negative (Negative) mg/dL Urine Blood Negative (Negative) Urine Nitrite Negative (Negative) Ur Leukocyte Esterase Negative (Negative) Influenza Type A (PCR) (Negative) Influenza Type B (PCR) (Negative) RSV RNA Qual (PCR) (Negative) SARS-CoV-2 RNA (RT-PCR) (Negative) Independent Interpretation I performed an independent interpretation of an: EKG Interpretation: EKG NSR at a ventricular rate of 72 bpm, no STEMI. Radiology Impression Discussion of test interpretation with radiology: I have reviewed the radiologist's reading. Radiologist Impression: Findings: Lung bases show no active disease. Stable chronic pleural thickening and calcified pleural plaques dependent portion both lungs. The heart is not enlarged. No stones are identified in the kidneys, ureters or bladder. There is no hydronephrosis or perinephric stranding/fluid. Evaluation of the liver, spleen, adrenal glands and pancreas demonstrates no lesions. It should be noted that isodense masses may be obscured in the absence of intravenous contrast. Post cholecystectomy. Diverticulosis coli. No pathologically enlarged lymph nodes . No ascites demonstrated. Normal distention of the urinary bladder. Appendix not visualized. No vertebral body compression fractures or spondylolisthesis. No bony destructive lesions. Impression: 1. No nephrolithiasis or urinary tract obstruction demonstrated. 2. Post cholecystectomy. Diverticulosis coli. 3. Stable pleural thickening and calcified pleural plaques dependent portion both lungs. This document has been electronically signed by: Cristiano Crouch MD on 05/07/2024 10:28:24 Dictated By: Cristiano Crouch MD Medications Administered Discontinued Medications Generic Name Dose Route Start Last Admin Trade Name Freq PRN Reason Stop Dose Admin Acetaminophen 1,000 mg in 100 mls @ 400 mls/hr 05/07/24 08:18 05/07/24 08:51 Ofirmev IV 05/07/24 08:32 Infused ONCE ONE Infusion Morphine Sulfate 4 mg 05/07/24 10:16 05/07/24 10:27 Morphine Sulfate 4 Mg/Ml Cartridge IVPUSH 05/07/24 10:17 4 mg ONCE ONE Administration Protocol Discharge Plan Discharge Clinical Impression: Flank pain, Diarrhea Patient Disposition: Home, Self-Care Instructions: Flank Pain (ED) Additional Instructions: You were seen in the emergency department to do right-sided flank pain. Your workup today was reassuring. CT abdomen revealed no reason for your pain. Please drink plenty of fluids get plenty of rest. Avoid any spicy or fried foods, avoid dairy. Follow-up with your primary care physician. If any new or worsening symptoms occur including but not limited to worsening pain, chest pain, shortness for breath, changes in mentation, please seek emergent care. Prescriptions: No Action lorazepam [Ativan] 0.5 mg tablet 0.5 mg PO BID PRN (Reason: anxiety) 30 Days Qty: 45 3RF acetaminophen [Tylenol Arthritis Pain] 650 mg tablet extended release 650 mg PO Q8H PRN (Reason: pain) Qty: 30 0RF clonidine HCl 0.1 mg tablet 0.1 mg PO TID (DME) FreeStyle Lite Strips Strip 1 strip MISCELLANEOUS TID simvastatin 20 mg tablet 20 mg PO BEDTIME insulin lispro 100 unit/mL insulin pen 1 sliding scale dose subcut TIDAC Protocol: Insulin Correction Scale Less than or equal to 110 ---- Give (units): 0 111 to 150 Give (units): 33 151 to 200 Give (units): 37 201 to 250 Give (units): 41 251 to 300 Give (units): 43 301 to 350 Give (units): 45 Greater than 350 Give (units): 47 Call MD if Blood Glucose > : 400 Rx Instructions: inject subq 3x daily with meals per sliding scale 80-99 inject 31 units 100-149 inject 33 units 150-199 inject 37 units 200-249 inject 41 units 250-299 inject 43 units 300-349 inject 45 units 350-399 inject 47 units 400 and higher: inject 49 units and call MD (DME) pen needle, diabetic [BD Ultra-Fine Micro Pen Needle] 32 gauge x 1/4 needle MISCELLANEOUS Ubrelvy 100 mg tablet 100 mg PO Q2H PRN (Reason: Migraine Headache) Rx Instructions: take at onset of migraine. MRX1 after 2 hours. Do not exceed 2 doses in 24 hours levothyroxine 125 mcg tablet 125 mcg PO DAILY@0600 insulin glargine [Lantus Solostar U-100 Insulin] 100 unit/mL (3 mL) insulin pen 52 unit subcut BID Rx Instructions: inject 52 units subq in the morning (8am) and 52 units at night (8pm) aspirin 81 mg Tablet,Delayed Release (Dr/Ec) 81 mg PO DAILY cholecalciferol (vitamin D3) 25 mcg (1,000 unit) Tablet 25 mcg PO DAILY divalproex [Depakote] 125 mg tablet,delayed release (DR/EC) 125 mg PO DAILY gabapentin 100 mg capsule 100 mg PO TID Referrals: Bhakti Rodgers MD [Primary Care Provider] - Interventions: ED Discharge Assessment Last Done: 05/07/24 15:44 Discharge Date/Time: 05/07/24 15:49 Print Language: Niuean
--- NOTE | 2024-05-07 08:17 | ECG_ITS ---
Test Reason : ABP PAIN Blood Pressure : / mmHG Vent. Rate : 072 BPM Atrial Rate : 072 BPM P-R Int : 208 ms QRS Dur : 092 ms QT Int : 406 ms P-R-T Axes : 038 034 -08 degrees QTc Int : 444 ms Normal sinus rhythm Nonspecific ST and T wave abnormality Abnormal ECG When compared with ECG of 29-JAN-2024 11:06, Nonspecific T wave abnormality now evident in Inferior leads Referred By: Negin Maxwell Electronically Signed By:GLADYS ALONZO MD
[2024-05-07] MEDS: Acetaminophen 1,000 MG/100 ML PIGGYBACK 400 MG IV (08:28)
[2024-05-07 09:08] LABS: Influenza A PCR NEGATIVE (Negative); Influenza B PCR NEGATIVE (Negative); Resp Syncy Virus RNA Qual PCR NEGATIVE (Negative); SARS COV2 PCR INHOUSE NEGATIVE (Negative)
[2024-05-07 09:11] LABS: Alanine Aminotransferase 59 U/L (0-31); Albumin Level 3.6 g/dL (3.5-5.0); Alkaline Phosphatase 125 U/L (39-117); Anion Gap 11 (12-20); Aspartate Amino Transferase 54 U/L (5-31); Blood Urea Nitrogen 16 mg/dL (9-16); Calcium 8.7 mg/dL (8.4-10.2); Carbon Dioxide 26 mmol/L (22-29); Chloride 107 mmol/L (96-108); Creatinine Clr Calc Pharmacy 70.3; Estimated Glomerular Filt Rate > 60; Glucose Random 158 mg/dL (60-115); Lipase 13 U/L (8-78); Magnesium 1.7 mg/dL (1.6-2.6); Potassium 4.3 mmol/L (3.3-5.1); Sodium 140 mmol/L (135-145); Total Protein 6.8 g/dL (6.5-8.0)
[2024-05-07 09:53] LABS: Troponin-I High Sensitivity < 2.7 ng/L (<3.5-17.0)
[2024-05-07 10:27] VITALS: RESP 16
[2024-05-07] MEDS: Morphine Sulfate 4 MG/ML CARTRIDGE IVPUSH (10:27)
[2024-05-07 11:06] VITALS: BP 147/68; PULSE 64; RESP 16; TEMP 36.5; O2SAT 97
[2024-05-07 13:56] LABS: Glucose, Whole Blood 96 mg/dL (60-115)
[2024-05-07 13:58] VITALS: BP 155/52; PULSE 75; RESP 18; O2SAT 98
[2024-05-07 14:08] LABS: Appearance Urine Clear; Color Urine Yellow; Glucose Urine UA Negative (Negative); Leukocyte Esterase Urine Negative (Negative); Nitrite Urine Negative (Negative); PH 5.5 (5.0-9.0); Specific Gravity - Urine 1.015 (1.005-1.025); Urine Blood Negative (Negative); Urine Ketones Negative (Negative); Urine Protein Negative (Neg-Trace)
[2024-05-07 15:44] VITALS: BP 150/72; PULSE 70; RESP 18; TEMP 36.6; O2SAT 97
== END 2024-05-07 15:49 | disposition home or self-care (01) ==
PROVIDERS: Physician Assistant Medical; Emergency Provider Emergency Medicine; PCP Internal Medicine
DX: R10.2 Pelvic and perineal pain (principal); E11.9 Type 2 diabetes mellitus without complications; R19.7 Diarrhea, unspecified; R94.31 Abnormal electrocardiogram [ECG] [EKG]; Z79.4 Long term (current) use of insulin; Z03.818 Encounter for observation for suspected exposure to other biological agents ruled out; Z79.899 Other long term (current) drug therapy
CPT/HCPCS: 0241U; 36415; 74176; 80053; 81003; 82947; 83690; 83735; 84484; 85025; 93005; 96365; 99284; 99285; J0131; J2270

== ENCOUNTER → 2024-05-07 08:17 | Outpatient (BNV) | payer MEDICARE, SELFPAY | PROVIDERS: Emergency Provider Emergency Medicine; PCP Internal Medicine; Visit Provider Internal Medicine Cardiovascular Disease | DX: R10.9 Unspecified abdominal pain (principal); R94.31 Abnormal electrocardiogram [ECG] [EKG] | CPT/HCPCS: 93010 ==

== ENCOUNTER → 2024-05-07 09:19 | Outpatient (BNV) | payer MEDICARE, SELFPAY | PROVIDERS: Emergency Provider Emergency Medicine; PCP Internal Medicine; Visit Provider Radiology Diagnostic Radiology | DX: R10.9 Unspecified abdominal pain (principal) | CPT/HCPCS: 74176 ==

== ENCOUNTER 2024-05-10 10:37 | Emergency (ER) | payer MEDICARE, SELFPAY ==
--- NOTE | ~2024-05-10 | XR_ITS ---
CLINICAL HISTORY: midline tenderness 2 views thoracic spine Comparison: CR/SR - XR THORACIC SPINE 2V - 07/31/23 17:49 EDT Findings: Mild scoliosis. Limited evaluation of the upper thoracic spine on the lateral view due to the overlapping structures. No acute fractures or dislocation. There is degenerative change. IMPRESSION: No acute findings. This document has been electronically signed by: Saul White MD on 05/10/2024 13:51:37
--- NOTE | ~2024-05-10 | XR_ITS ---
CLINICAL HISTORY: midline tenderness 3 views lumbar spine Comparison: CR/SR - XR LUMBAR SPINE 2-3V - 07/31/23 17:54 EDT Findings: Normal vertebral body alignment. No acute fractures or dislocation. Degenerative changes of the lumbar spine with osteophyte formation and narrowing of the intervertebral disc space. IMPRESSION: No acute findings. This document has been electronically signed by: Saul White MD on 05/10/2024 13:52:54
[2024-05-10 11:04] VITALS: BP 132/64; PULSE 97; RESP 18; TEMP 36.8; O2SAT 96; BMI 42.1
--- NOTE | 2024-05-10 11:04 | ED_ITS ---
HPI - General Adult General Chief complaint: Back Pain/Injury Stated complaint: back pain Time Seen by Provider: 05/10/24 11:52 Source: patient, family (), RN notes reviewed and old records reviewed Mode of arrival: ambulatory Limitations: no limitations History of Present Illness ED Provider: Noris HPI narrative: Patient is a 73-year-old female with history of IDT2DM, CKD, HTN, HLD, KUMAR, complex migraines, anxiety, hypothyroidism presenting to the emergency department with complaint of lower back pain since on or before Wednesday, unable to state exactly when her pain began. Denies fall or other trauma. Denies weakness, numbness, tingling to extremities. Denies saddle anesthesia or bowel or bladder incontinence. States pain radiates to both legs at times. Seen in this ED on 05/07 for diarrhea and right flank pain. Denies current abdominal or flank pain, denies urinary symptoms. Denies fevers. States she is having difficulty ambulating and sleeping due to the pain. Has been taking Tylenol without relief. MD complaint: back pain Onset (ago): day(s) Location: back Radiation: non-radiation Severity: severe Quality: aching Pain Consistency: constant Relieving factors: none Associated symptoms: denies other symptoms Treatments prior to arrival: other Related Data Home Medications ?Medication ?Instructions ?Recorded ?Confirmed blood sugar diagnostic (FreeStyle 09/28/22 04/12/24 Lite Strips) clonidine HCl 0.1 mg tablet 0.1 mg PO TID 09/28/22 04/12/24 insulin lispro 100 unit/mL 1 sliding scale dose subcut TIDAC 09/28/22 04/12/24 subcutaneous pen pen needle, diabetic 32 gauge x 09/28/22 04/12/2405/13 (BD Ultra-Fine Micro Pen Needle) simvastatin 20 mg tablet 20 mg PO BEDTIME 09/28/22 04/12/24 ubrogepant 100 mg tablet (Ubrelvy) 100 mg PO Q2H PRN Migraine Headache 09/28/22 04/12/24 aspirin 81 mg tablet,delayed 81 mg PO DAILY 10/01/22 04/12/24 release cholecalciferol (vitamin D3) 25 25 mcg PO DAILY 10/01/22 04/12/24 mcg (1,000 unit) tablet levothyroxine 125 mcg tablet 125 mcg PO DAILY@0600 04/14/23 04/12/24 gabapentin 100 mg capsule 100 mg PO TID 12/22/23 04/12/24 insulin glargine 100 unit/mL (3 52 unit subcut BID 12/22/23 04/12/24 mL) subcutaneous pen (Lantus Solostar U-100 Insulin) divalproex 125 mg tablet,delayed 125 mg PO DAILY 01/29/24 04/12/24 release (Depakote) Previous Rx's ?Medication ?Instructions ?Recorded acetaminophen 650 mg 650 mg PO Q8H PRN pain #30 tabs 07/31/23 tablet,extended release (Tylenol Arthritis Pain) lorazepam 0.5 mg tablet (Ativan) 0.5 mg PO BID PRN anxiety 30 days 04/26/24 #45 tabs diclofenac sodium 1 % topical gel 4 g topical QID #100 grams 05/10/24 tramadol 50 mg tablet 50 mg PO Q6H PRN severe pain 05/10/24 (scale score 7-10) #14 tabs Allergies Allergy/AdvReac Type Severity Reaction Status Date / Time Iodinated Contrast Media Allergy Severe SEDATION,TA Verified 05/10/24 11:06 [IVP DYE] CHYCARDIA azithromycin Allergy Unknown Hives Verified 05/10/24 11:06 erythromycin base Allergy Unknown HIVES Verified 05/10/24 11:06 [ERYTHROMYCIN BASE] metformin AdvReac Unknown Diarrhea Verified 05/10/24 11:06 Review of Systems 2 Review of Systems: As per HPI Yes all other systems are reviewed and are negative Constitutional: Constitutional: Reports as per HPI [facility] Past Medical History Medical History (Updated 05/10/24 @ 15:16 by Elizabeth Hamm NP) Migraine Type 2 diabetes mellitus CKD (chronic kidney disease) stage 2, GFR 60-89 ml/min Anxiety Obstructive sleep apnea Encephalitis Hypothyroid HTN (hypertension) HLD (hyperlipidemia) Diabetes Complicated migraine Surgical History Hx of left mastectomy Hx of cholecystectomy H/O section Family History Family History Mother Lung cancer Diabetes Depression Daughter Alcohol abuse Father FH: cholecystectomy Social History Social History (Reviewed 04/12/24 @ 10:18 by AGATA Jain Household Members: Children Housing: House Do you presently have visiting nurse or other home services: Yes Unable to assess alcohol history related to: Unable to respond Alcohol intake: never Comment: 1 TO 1 SITTER Patient Tobacco Use Status: Never used Tobacco e-Cigarette/Vaping Use: Never Used Second Hand Smoke Exposure: No Advance Directives: Yes Advance Directives on File: Yes Advance Directives Date on File: 09/28/22 Do you have a plan to hurt others: No Plan service: No Current occupational status: retired Physical Exam ED Vital Signs: Vital Signs - 24 hr 05/10/24 11:04 Temperature 98.2 F Pulse Rate 97 Respiratory Rate 18 Blood Pressure 132/64 Pulse Oximetry 96 Oxygen Delivery Method Room Air BMI result Body Mass Index 42.1 Vital signs have been reviewed and appear to be correct. Blood pressure normal. Heart rate normal. Respiratory rate normal. Temperature normal. Oxygen saturation normal. Const General: cooperative, healthy appearing and no acute distress Orientation/consciousness: oriented to person, oriented to place, oriented to time and patient oriented x3 Limitations: no limitations HENMT Head: Yes normocephalic and Yes atraumatic Ears: external ears normal General nose exam: Normal external nose present Face and sinus: Yes face symmetric Mouth: oropharynx normal and moist mucous membranes Throat: Yes uvula midline Eyes Pupils: Equal, round and reactive pupils present Neck Neck: Yes normal visual inspection and Yes supple Resp Effort & Inspection: normal respiratory effort and able to speak in complete sentences Auscultation: clear to auscultation bilaterally Cardio Rate: regular rate Rhythm: regular rhythm Heart sounds: S1 normal heart sound present and S2 normal heart sound present GI Palpation (GI): Soft to palpation and nontender Auscultation: normoactive bowel sounds General: Yes no CVA tenderness Back/Spine/Pelvis Back: no CVA tenderness Cervical Spine: normal cervical lordosis, cervical ROM normal, No cervical muscular tenderness, No pain with cervical ROM, No Cervical spine tenderness and No step off deformity Thoracic/Lumbar Spine: thoracic and lumbar spine normal to inspection, thoraco- lumbar ROM normal, straight leg raise negative bilaterally, pain with thoraco- lumbar ROM, paraspinal muscle tenderness bilaterally in the upper lumbar and in the mid lumbar, thoracic spinal tenderness at T10, at T11 and at T12 and lumbar spinal tenderness at L1, at L2 and at L3 Pelvis: no pain with anterior-posterior compression Skin General skin exam: elasticity normal and turgor normal Neuro General: oriented to person, oriented to place, oriented to time, patient oriented x3, gait normal, tone normal, moves all extremities, Normal light touch and pain sensation, no focal motor deficits, CN's II-XI intact bilaterally and deep tendon reflexes 2+ bilaterally Cranial nerves: Yes Equal, round and reactive pupils present Cognition (Neuro): normal cognition Motor exam (neuro): 5/5 motor strength present throughout (with exception of left shoulder which 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 She was seen here 2 days ago for diarrhea and right flank pain, she had negative workup that included labs, urinalysis, CT scan of the brain. We will recheck labs and urinalysis will defer any imaging at time. The patient appears well in his walking unassisted Medications Administered Discontinued Medications Generic Name Dose Route Start Last Admin Trade Name Freq PRN Reason Stop Dose Admin Diazepam 2.5 mg 05/10/24 12:39 05/10/24 12:49 Diazepam 10 Mg/2 Ml Cartridge IM 05/10/24 12:40 2.5 mg STAT STA Administration Lidocaine 2 patch 05/10/24 12:39 05/10/24 12:49 Lidocaine 4 % Patch Adh..Patch TRANSDERMA 05/10/24 12:40 2 patch ONCE ONE Administration Protocol Medical Decision Making Medical Decision Making [facility] Narrative: Patient is a 73-year-old female with history of IDT2DM, CKD, HTN, HLD, KUMAR, complex migraines, anxiety, hypothyroidism presenting to the emergency department with complaint of lower back pain since on or before Wednesday, unable to state exactly when her pain began. On exam patient is awake, A+Ox3, VS WNL, afebrile, normal neurological exam without focal deficits, physical exam findings as above. Given reported symptoms and physical exam findings, initial differential includes but is not limited to acute on chronic back pain, musculoskeletal pain, compression fracture, degenerative disc disease. Do not suspect malignancy/mass, SEA, cauda equina/cord compression. Patient seen in this ED for similar complaint in the past, was referred to pain management. Patient states she saw pain management but nothing helped. Labs notable for slight leukocytosis, no anemia, hyperglycemia without an anion gap, mildly elevated transaminases consistent with prior lab values, no evidence of MAGGY. No evidence of infection on urinalysis. X-ray lumbar and thoracic spine notable for degenerative disease, no acute findings. My interpretation is in agreement with the radiologist's interpretation. Results discussed with patient and , all questions answered. Advised patient to try reaching out to pain management again to discuss the possibility of steroid injections. Patient agreeable to trying Tramadol again, though did not like the side effects in the past, she is willing to try again. Will also send prescription for diclofenac gel. Advised her to follow up with PCP as well given the chronic nature of her symptoms. Return precautions discussed. Patient and verbalized understanding of and agreement with plan. Differential Diagnosis Differential Diagnoses: The differential diagnosis associated with the presentation includes As per [facility] Admission/Observation Consideration of admission/observation: Escalation of care including admission/observation considered Patient would have been admitted to the hospital had their work up had any findings where hospital admission was appropriate and their clinical presentation warranted hospital admission. Lab Data [facility] Lab Attestation statement: I reviewed the patient's lab results. As per [facility] 05/10/24 11:26 05/10/24 11:26 Labs: Lab Results 05/10/24 Range/Units 11:26 WBC 11.1 H (4.8-10.8) X10*3/uL RBC 4.41 (4.20-5.50) X10*6/uL Hgb 13.3 (12.0-16.0) g/dl Hct 38.0 (37.0-47.0) % MCV 86.2 (80.0-98.0) fL MCH 30.2 (27.0-33.0) pg MCHC 35.0 (31.0-35.0) g/dl RDW 12.7 (11.0-16.0) % Plt Count 291 (160-400) X10*3/uL MPV 11.7 (9.4-12.3) fL Immature Gran % (Auto) 0.5 H (0.0-0.4) % Neut % (Auto) 58.0 (45-73) % Lymph % (Auto) 32.6 (20-40) % [place] % (Auto) 6.3 (2-11) % Eos % (Auto) 2.2 (0-4) % Baso % (Auto) 0.4 (0-2) % Lymph # (Auto) 3.6 (1.2-4.9) X10*3/uL [place] # (Auto) 0.7 (0.1-1.2) X10*3/uL Eos # (Auto) 0.2 (0.0-0.4) X10*3/uL Baso # (Auto) 0.0 (0.0-0.2) X10*3/uL Abs Immat Gran (auto) 0.05 H (0.00-0.03) X10*3/uL Absolute Neuts (auto) 6.4 (2.0-8.3) x10*3/uL Absolute Nucleated RBC 0.000 (0.0-0.012) X10*3/uL Nucleated RBC % (auto) 0.0 (0.0-0.2) /100WBC Sodium 139 (135-145) mmol/L Potassium 4.2 (3.3-5.1) mmol/L Chloride 104 (96-108) mmol/L Carbon Dioxide 24 (22-29) mmol/L Anion Gap 15 (12-20) BUN 22 H (9-16) mg/dL Creatinine 1.06 (0.5-1.4) mg/dL Estim Creat Clear Calc 59.3 Estimated GFR 51 Random Glucose 327 H (60-115) mg/dL Calcium 9.2 (8.4-10.2) mg/dL Total Bilirubin 1.4 H (0.0-1.0) mg/dL AST 53 H (5-31) U/L ALT 88 H (0-31) U/L Alkaline Phosphatase 156 H (39-117) U/L Total Protein 7.6 (6.5-8.0) g/dL Albumin 4.0 (3.5-5.0) g/dL Lipase 17 (8-78) U/L Urine Color Yellow Urine Appearance Clear Urine pH 5.0 (5.0-9.0) Ur Specific [place] 1.020 (1.005-1.025) Urine Protein Negative (Neg-Trace) mg/dL Urine Glucose (UA) >=1000 H (Negative) mg/dL Urine Ketones Negative (Negative) mg/dL Urine Blood Negative (Negative) Urine Nitrite Negative (Negative) Ur Leukocyte Esterase Negative (Negative) Urine RBC 0-2 (0-2) /HPF Urine WBC 0-5 (0-5) /HPF Ur Squamous Epith Cells 3-5 (0-2) /HPF Urine Bacteria Trace (None Seen) Hyaline Casts 0-2 (0-2) /LPF Independent Interpretation I performed an independent interpretation of an: Plain X-Ray Interpretation: X-ray lumbar and thoracic spine notable for degenerative disease, no acute findings. Radiology Impression Discussion of test interpretation with radiology: I have reviewed the radiologist's reading. Radiologist Impression: Findings: Normal vertebral body alignment. No acute fractures or dislocation. Degenerative changes of the lumbar spine with osteophyte formation and narrowing of the intervertebral disc space. IMPRESSION: No acute findings. Findings: Mild scoliosis. Limited evaluation of the upper thoracic spine on the lateral view due to the overlapping structures. No acute fractures or dislocation. There is degenerative change. IMPRESSION: No acute findings. Independent Historian Clinical information obtained from an independent historian. History obtained from or confirmed by: Spouse External Record Review External record reviewed: Inpatient record, Office record and Outpatient record Prescription Management I considered prescription management with: Pain Medication Discharge Plan Discharge Clinical Impression: Chronic back pain Patient Disposition: Home, Self-Care Instructions: Chronic Back Pain (DC) Additional Instructions: You were evaluated in the emergency department today for back pain. Your labs, urinalysis, and x-rays did not show evidence of conditions requiring emergent medical treatment at this time. As discussed, we recommend that you reach back out to pain management to discuss the possibility steroid injections for the pain. You are being prescribed tramadol, use caution as this medication can cause drowsiness. You are also being prescribed topical diclofenac gel, use this as prescribed. Continue to use Tylenol. Follow-up with your primary care provider. Return to the emergency department if you develop numbness or tingling to her groin area, loss of bowel or bladder control, fever, or any other new or concerning symptoms. Prescriptions: New diclofenac sodium 1 % gel 4 g topical QID Qty: 100 0RF Rx Instructions: apply to single knee, ankle, foot; for foot includes sole/toes/top of foot tramadol 50 mg tablet 50 mg PO Q6H PRN (Reason: severe pain (scale score 7-10)) Qty: 14 0RF No Action lorazepam [Ativan] 0.5 mg tablet 0.5 mg PO BID PRN (Reason: anxiety) 30 Days Qty: 45 3RF acetaminophen [Tylenol Arthritis Pain] 650 mg tablet extended release 650 mg PO Q8H PRN (Reason: pain) Qty: 30 0RF clonidine HCl 0.1 mg tablet 0.1 mg PO TID (DME) FreeStyle Lite Strips Strip 1 strip MISCELLANEOUS TID simvastatin 20 mg tablet 20 mg PO BEDTIME insulin lispro 100 unit/mL insulin pen 1 sliding scale dose subcut TIDAC Protocol: Insulin Correction Scale Less than or equal to 110 ---- Give (units): 0 111 to 150 Give (units): 33 151 to 200 Give (units): 37 201 to 250 Give (units): 41 251 to 300 Give (units): 43 301 to 350 Give (units): 45 Greater than 350 Give (units): 47 Call MD if Blood Glucose > : 400 Rx Instructions: inject subq 3x daily with meals per sliding scale 80-99 inject 31 units 100-149 inject 33 units 150-199 inject 37 units 200-249 inject 41 units 250-299 inject 43 units 300-349 inject 45 units 350-399 inject 47 units 400 and higher: inject 49 units and call MD (DME) pen needle, diabetic [BD Ultra-Fine Micro Pen Needle] 32 gauge x 1/4 needle MISCELLANEOUS Ubrelvy 100 mg tablet 100 mg PO Q2H PRN (Reason: Migraine Headache) Rx Instructions: take at onset of migraine. MRX1 after 2 hours. Do not exceed 2 doses in 24 hours levothyroxine 125 mcg tablet 125 mcg PO DAILY@0600 insulin glargine [Lantus Solostar U-100 Insulin] 100 unit/mL (3 mL) insulin pen 52 unit subcut BID Rx Instructions: inject 52 units subq in the morning (8am) and 52 units at night (8pm) aspirin 81 mg Tablet,Delayed Release (Dr/Ec) 81 mg PO DAILY cholecalciferol (vitamin D3) 25 mcg (1,000 unit) Tablet 25 mcg PO DAILY divalproex [Depakote] 125 mg tablet,delayed release (DR/EC) 125 mg PO DAILY gabapentin 100 mg capsule 100 mg PO TID Referrals: Julian Naranjo MD [Physician] - Print Language: Colombian
[2024-05-10 11:32] LABS: MANUAL DIFF FLAG NO
[2024-05-10 11:34] LABS: Appearance Urine Clear; Color Urine Yellow; Glucose Urine UA >=1000 mg/dL (Negative); Leukocyte Esterase Urine Negative (Negative); Nitrite Urine Negative (Negative); UMIC TRIGGER UACC YES; Urine Blood Negative (Negative); Urine Ketones Negative (Negative); Urine Protein Negative (Neg-Trace)
[2024-05-10 11:35] LABS: Basophils Percent Auto 0.4 % (0-2); Eosinophils Absolute Auto 0.2 X10*3/uL (0.0-0.4); Eosinophils Percent Auto 2.2 % (0-4); Hemoglobin 13.3 g/dl (12.0-16.0); Imm Gran Abs Auto 0.05 X10*3/uL (0.00-0.03); Imm Gran Pct Auto 0.5 % (0.0-0.4); Lymphocytes Absolute Auto 3.6 X10*3/uL (1.2-4.9); Lymphocytes Percent Auto 32.6 % (20-40); Mean Corpuscular Hemoglobin 30.2 pg (27.0-33.0); Mean Corpuscular Volume 86.2 fL (80.0-98.0); Mean Platelet Volume 11.7 fL (9.4-12.3); Monocytes Absolute Auto 0.7 X10*3/uL (0.1-1.2); Monocytes Percent Auto 6.3 % (2-11); Neutrophils Absolute Auto 6.4 x10*3/uL (2.0-8.3); Platelet Count 291 X10*3/uL (160-400); Red Blood Count 4.41 X10*6/uL (4.20-5.50); Red Cell Distribution Width 12.7 % (11.0-16.0); White Blood Count 11.1 X10*3/uL (4.8-10.8)
[2024-05-10 11:36] LABS: Bacteria Urine Trace (None Seen); Hyaline Casts Urine 0-2 /LPF (0-2); RBC Urine 0-2 /HPF (0-2); WBC Urine 0-5 /HPF (0-5)
[2024-05-10 11:47] LABS: Alanine Aminotransferase 88 U/L (0-31); Alkaline Phosphatase 156 U/L (39-117); Anion Gap 15 (12-20); Aspartate Amino Transferase 53 U/L (5-31); Bilirubin Total 1.4 mg/dL (0.0-1.0); Blood Urea Nitrogen 22 mg/dL (9-16); Calcium 9.2 mg/dL (8.4-10.2); Carbon Dioxide 24 mmol/L (22-29); Chloride 104 mmol/L (96-108); Creatinine Clr Calc Pharmacy 59.3; Estimated Glomerular Filt Rate 51; Glucose Random 327 mg/dL (60-115); Lipase 17 U/L (8-78); Potassium 4.2 mmol/L (3.3-5.1); Sodium 139 mmol/L (135-145); Total Protein 7.6 g/dL (6.5-8.0)
[2024-05-10] MEDS: Lidocaine 4 % Patch ADH..PATCH 2 PATCH TRANSDERMA (12:49)
[2024-05-10] MEDS: diazePAM 10 MG/2 ML CARTRIDGE 2.5 MG IM (12:49)
--- NOTE | 2024-05-10 14:21 | PC.NURSE ---
Pt states there is no improvement in pain. Remains right side lying in bed.
[2024-05-10 15:59] VITALS: BP 132/64; PULSE 97; RESP 18; TEMP 36.8; O2SAT 96
== END 2024-05-10 16:00 | disposition home or self-care (01) ==
PROVIDERS: Physician Assistant; Emergency Provider Emergency Medicine; PCP Internal Medicine
DX: G89.29 Other chronic pain (principal); M54.9 Dorsalgia, unspecified
CPT/HCPCS: 36415; 72072; 72100; 80053; 81001; 83690; 85025; 96372; 99283; 99284; J3360

== ENCOUNTER → 2024-05-10 12:35 | Outpatient (BNV) | payer MEDICARE, SELFPAY | PROVIDERS: Emergency Provider Emergency Medicine; PCP Internal Medicine; Visit Provider Nuclear Medicine | DX: M54.50 Low back pain, unspecified (principal) | CPT/HCPCS: 72072; 72100 ==

== ENCOUNTER 2024-05-26 20:47 | Emergency (ER) | payer MEDICARE, SELFPAY ==
--- NOTE | ~2024-05-26 | CT_ITS ---
CLINICAL HISTORY: slurred speech resolved CT head without contrast Comparison: CT/SR - CT HEAD/BRAIN WO IV CON - 01/29/24 11:39 EDT Findings: No intra-axial mass, midline shift, hydrocephalus, or acute hemorrhage. No significant atrophy-like change or white matter disease. There is no sinus or mastoid fluid. The orbits are within normal limits. There is no acute fracture. IMPRESSION: 1. No acute intracranial findings. This document has been electronically signed by: Cirilo Saini MD on 05/26/2024 23:23:24
[2024-05-26 21:00] VITALS: BP 158/80; PULSE 80; O2SAT 97
[2024-05-26 21:04] VITALS: BP 140/57; PULSE 74; RESP 18; TEMP 36.7; O2SAT 96; BMI 44.4
--- NOTE | 2024-05-26 21:25 | ECG_ITS ---
Test Reason : WEAKNESS Blood Pressure : */* mmHG Vent. Rate : 69 BPM Atrial Rate : 69 BPM P-R Int : 248 ms QRS Dur : 98 ms QT Int : 402 ms P-R-T Axes : 45 28 33 degrees QTcB Int : 430 ms Sinus rhythm with 1st degree A-V block Otherwise normal ECG When compared with ECG of 07-May-2024 08:26, WI interval has increased Nonspecific T wave abnormality, improved in Inferior leads Referred By: Debra Christina Electronically Signed By: Sebastian Nguyễn
--- NOTE | 2024-05-26 21:35 | ED_ITS ---
HPI - Headache General Chief Complaint: Headache Stated Complaint: headache slurred speech Time Seen by Provider: 05/26/24 21:21 Source: patient and EMS Mode of arrival: EMS Limitations: no limitations History of Present Illness ED Provider: Dr. Debra Christina HPI Narrative: Patient comes to the emergency room complaining of not feeling well. Patient states that she is known to have complex migraines usually consisting of slurred speech and unilateral side weakness usually the left. Patient states that at this time she no longer has a headache and she has no neurological symptoms. Patient states that overall she does not quite feel right but can not pinpoint what is bothering her. Patient denies chest pain or shortness of breath, denies nausea vomiting diarrhea, denies weakness. Related Data Home Medications ?Medication ?Instructions ?Recorded ?Confirmed blood sugar diagnostic (FreeStyle 09/28/22 04/12/24 Lite Strips) clonidine HCl 0.1 mg tablet 0.1 mg PO TID 09/28/22 04/12/24 insulin lispro 100 unit/mL 1 sliding scale dose subcut TIDAC 09/28/22 04/12/24 subcutaneous pen pen needle, diabetic 32 gauge x 09/28/22 04/12/2405/13 (BD Ultra-Fine Micro Pen Needle) simvastatin 20 mg tablet 20 mg PO BEDTIME 09/28/22 04/12/24 ubrogepant 100 mg tablet (Ubrelvy) 100 mg PO Q2H PRN Migraine Headache 09/28/22 04/12/24 aspirin 81 mg tablet,delayed 81 mg PO DAILY 10/01/22 04/12/24 release cholecalciferol (vitamin D3) 25 25 mcg PO DAILY 10/01/22 04/12/24 mcg (1,000 unit) tablet levothyroxine 125 mcg tablet 125 mcg PO DAILY@0600 04/14/23 04/12/24 gabapentin 100 mg capsule 100 mg PO TID 12/22/23 04/12/24 insulin glargine 100 unit/mL (3 52 unit subcut BID 12/22/23 04/12/24 mL) subcutaneous pen (Lantus Solostar U-100 Insulin) divalproex 125 mg tablet,delayed 125 mg PO DAILY 01/29/24 04/12/24 release (Depakote) Previous Rx's ?Medication ?Instructions ?Recorded acetaminophen 650 mg 650 mg PO Q8H PRN pain #30 tabs 07/31/23 tablet,extended release (Tylenol Arthritis Pain) lorazepam 0.5 mg tablet (Ativan) 0.5 mg PO BID PRN anxiety 30 days 04/26/24 #45 tabs diclofenac sodium 1 % topical gel 4 g topical QID #100 grams 05/10/24 tramadol 50 mg tablet 50 mg PO Q6H PRN severe pain 05/10/24 (scale score 7-10) #14 tabs Allergies Allergy/AdvReac Type Severity Reaction Status Date / Time Iodinated Contrast Media Allergy Severe SEDATION,TA Verified 05/26/24 21:08 [IVP DYE] CHYCARDIA azithromycin Allergy Unknown Hives Verified 05/26/24 21:08 erythromycin base Allergy Unknown HIVES Verified 05/26/24 21:08 [ERYTHROMYCIN BASE] metformin AdvReac Unknown Diarrhea Verified 05/26/24 21:08 Review of Systems 2 Review of Systems: Constitutional : No Weight loss, No Fever, No Chills, No Night Sweats, No Fatigue, complaining of generalized malaise ENT/Mouth : No Hearing loss, No Ear Pain, No Nasal Congestion, No Sinus Pain, No Hoarseness, No sore throat, No Rhinorrhea, No Swallowing Difficulty Eyes: No Eye Pain, No Swelling, No Redness, No Foreign Body, No Discharge, No Vision Changes Cardiovascular : No Chest Pain, No SOB, No Dyspnea on Exertion, No Orthopnea, No Edema, No Palpitations Respiratory : No Cough, No Sputum, No Wheezing, No Smoke Exposure, No Dyspnea Gastrointestinal : No Nausea, No Vomiting, No Diarrhea, No Constipation, No abdominal Pain, No Hematochezia, No Melena Genitourinary : no irregular bleeding, No Dysuria, No Urinary Frequency, No Hematuria, No Urinary Incontinence, No Urgency, No Flank Pain, No Urinary Flow Changes, No Hesitancy Musculoskeletal : No joint pain, No Myalgias, No Joint Swelling Skin : No Skin Lesions, No rash Neuro : No Weakness, No Numbness, No Paresthesias, No Loss of Consciousness, No Dizziness, had a migraine headache with slurred speech earlier today which self- resolved. Psych : No Anxiety/Panic, No Depression, No SI/HI/AH/VH, No Social Issues, Heme/Lymph: No Bruising, No Bleeding,No Lymphadenopathy Endocrine : No Polyuria, No Polydipsia, No Temperature Intolerance [facility] Past Medical History Medical History Migraine Type 2 diabetes mellitus CKD (chronic kidney disease) stage 2, GFR 60-89 ml/min Anxiety Obstructive sleep apnea Encephalitis Hypothyroid HTN (hypertension) HLD (hyperlipidemia) Diabetes Complicated migraine Surgical History Hx of left mastectomy Hx of cholecystectomy H/O section Family History Family History Mother Lung cancer Diabetes Depression Daughter Alcohol abuse Father FH: cholecystectomy Social History Social History Household Members: Children Housing: House Do you presently have visiting nurse or other home services: Yes Unable to assess alcohol history related to: Unable to respond Alcohol intake: never Comment: 1 TO 1 SITTER Patient Tobacco Use Status: Never used Tobacco Smoked in Last 30 Days: No e-Cigarette/Vaping Use: Never Used Second Hand Smoke Exposure: No Use of substances other than those prescribed or required for medical reasons: No Advance Directives: Yes Advance Directives on File: Yes Advance Directives Date on File: 09/28/22 service: No Current occupational status: retired Physical Exam 2 Vital Signs: Vital Signs: Last Vital Signs Temp 97.0 F 05/27/24 02:38 Pulse 74 05/27/24 02:38 Resp 16 05/27/24 02:38 BP 116/39 L 05/27/24 02:38 Pulse Ox 95 05/27/24 02:38 O2 Del Method Room Air 05/27/24 02:38 BMI result Body Mass Index 44.4 Const: Other: Appearance: Alert. Oriented X3. No acute distress. Seems a bit weak Eyes: Pupils equal, round and reactive to light. ENT: Pharynx normal. Neck: Normal inspection. Neck supple. No lymph nodes noted. No crepitus CVS: Normal heart rate and rhythm. Pulses normal. Normal S1 and S2 Respiratory: No respiratory distress. Breath sounds normal. No Wheezing. No rales Abdomen: Soft and nontender. No rigidity. No distention. Skin: Skin warm and dry. Normal skin color. Normal skin turgor. Extremities: No lower extremity edema. No Lacerations. No Rash Neuro: Oriented X 3. No motor deficit. No sensory deficit. Moving all extremities. No slurred speech. CN 2 through 12 grossly intact Psych: calm, cooperative, normal affect NIH Stroke Scale Internal: Initial- Upon Arrival Level of Consciousness: Alert Level of Consciousness Questions: Answers both questions correctly Level of Consciousness Commands: Performs both tasks correctly Best Gaze: Normal Visual: No visual loss Facial Palsy: Normal Motor Arm (Right): No drift Motor Arm (Left): No drift Motor Leg (Right): No drift Motor Leg (Left): No drift Limb Ataxia: Absent Sensory: Normal Best Language: No aphasia Dysarthia: Normal Extinction and Inattention: No abnormality Score: 0 Course Course Course Narrative: All of patient's labs pending CT scan of the head pending EKG pending Medical Decision Making Medical Decision Making [facility] Narrative: My interpretation of labs: Patient's hematology within normal limits, chemistry within normal limits, LFTs chronically elevated but at baseline, troponin negative, urinalysis negative for UTI, serology negative for influenza RSV and COVID CT scan does not show any acute abnormality. Patient likely has a viral illness I reviewed patient's past medical records. Patient has been hospitalized multiple times for stroke-like symptoms. However, patient has been diagnosed with a complex migraine. When patient arrived to emergency room, all of her symptoms had already resolved after having a migraine. Unlikely that patient had a TIA/CVA Patient states that she feels weird but does not know exactly what she is feeling. Patient denies chest pain, shortness of breath, no other symptoms. Differential Diagnosis Differential Diagnoses: The differential diagnosis associated with the presentation includes (COVID, influenza, complex migraine, TIA) Admission/Observation Consideration of admission/observation: Escalation of care including admission/observation considered (Given patient's symptoms, observation was considered) Lab Data [facility] Lab Attestation statement: I reviewed the patient's lab results. 05/26/24 21:47 05/26/24 21:47 Labs: Lab Results 05/26/24 05/27/24 Range/Units 21:47 02:37 WBC 8.9 (4.8-10.8) X10*3/uL RBC 4.13 L (4.20-5.50) X10*6/uL Hgb 12.3 (12.0-16.0) g/dl Hct 35.9 L (37.0-47.0) % MCV 86.9 (80.0-98.0) fL MCH 29.8 (27.0-33.0) pg MCHC 34.3 (31.0-35.0) g/dl RDW 12.7 (11.0-16.0) % Plt Count 257 (160-400) X10*3/uL MPV 11.4 (9.4-12.3) fL Immature Gran % (Auto) 0.3 (0.0-0.4) % Neut % (Auto) 53.5 (45-73) % Lymph % (Auto) 33.1 (20-40) % [place] % (Auto) 9.9 (2-11) % Eos % (Auto) 2.9 (0-4) % Baso % (Auto) 0.3 (0-2) % Lymph # (Auto) 3.0 (1.2-4.9) X10*3/uL [place] # (Auto) 0.9 (0.1-1.2) X10*3/uL Eos # (Auto) 0.3 (0.0-0.4) X10*3/uL Baso # (Auto) 0.0 (0.0-0.2) X10*3/uL Abs Immat Gran (auto) 0.03 (0.00-0.03) X10*3/uL Absolute Neuts (auto) 4.8 (2.0-8.3) x10*3/uL Absolute Nucleated RBC 0.000 (0.0-0.012) X10*3/uL Nucleated RBC % (auto) 0.0 (0.0-0.2) /100WBC Sodium 140 (135-145) mmol/L Potassium 4.1 (3.3-5.1) mmol/L Chloride 106 (96-108) mmol/L Carbon Dioxide 30 H (22-29) mmol/L Anion Gap 8 L (12-20) BUN 19 H (9-16) mg/dL Creatinine 0.98 (0.5-1.4) mg/dL Estim Creat Clear Calc 66.2 Estimated GFR 56 Random Glucose 185 H (60-115) mg/dL Calcium 8.6 D (8.4-10.2) mg/dL Total Bilirubin 1.0 (0.0-1.0) mg/dL AST 44 H (5-31) U/L ALT 50 H (0-31) U/L Alkaline Phosphatase 118 H (39-117) U/L Troponin I High Sens < 2.7 (<3.5-17.0) ng/L Total Protein 7.0 (6.5-8.0) g/dL Albumin 3.7 (3.5-5.0) g/dL Urine Color Yellow Urine Appearance Clear Urine pH 5.0 (5.0-9.0) Ur Specific [place] 1.020 (1.005-1.025) Urine Protein Negative (Neg-Trace) mg/dL Urine Glucose (UA) Negative (Negative) mg/dL Urine Ketones Negative (Negative) mg/dL Urine Blood Negative (Negative) Urine Nitrite Negative (Negative) Ur Leukocyte Esterase Negative (Negative) Urine Opiates Screen Not Detected (Not Detect) Ur Buprenorphine Scrn Not Detected (Not Detect) ng/mL Ur Oxycodone Screen Not Detected (Not Detect) ng/mL Urine Methadone Screen Not Detected (Not Detect) ng/mL Urine Fentanyl Screen Not Detected (Not Detect) Ur Barbiturates Screen Not Detected (Not Detect) Ur Phencyclidine Scrn Not Detected (Not Detect) Ur Amphetamines Screen Not Detected (Not Detect) U Benzodiazepines Scrn Not Detected (Not Detect) Urine Cocaine Screen Not Detected (Not Detect) U Marijuana (THC) Screen Not Detected (Not Detect) Influenza Type A (PCR) NEGATIVE (Negative) Influenza Type B (PCR) NEGATIVE (Negative) RSV RNA Qual (PCR) NEGATIVE (Negative) SARS-CoV-2 RNA (RT-PCR) NEGATIVE (Negative) Independent Interpretation I performed an independent interpretation of an: CT Scan Radiology Impression Discussion of test interpretation with radiology: I have reviewed the radiologist's reading. Radiologist Impression: Findings: No intra-axial mass, midline shift, hydrocephalus, or acute hemorrhage. No significant atrophy-like change or white matter disease. There is no sinus or mastoid fluid. The orbits are within normal limits. There is no acute fracture. IMPRESSION: 1. No acute intracranial findings. Discharge Plan Discharge Clinical Impression: Malaise Patient Disposition: Home, Self-Care Instructions: Fatigue (ED) Additional Instructions: Please follow-up with your primary care physician tomorrow. If you have any worsening or new symptoms, please return to the emergency room or call 911 Prescriptions: No Action lorazepam [Ativan] 0.5 mg tablet 0.5 mg PO BID PRN (Reason: anxiety) 30 Days Qty: 45 3RF acetaminophen [Tylenol Arthritis Pain] 650 mg tablet extended release 650 mg PO Q8H PRN (Reason: pain) Qty: 30 0RF clonidine HCl 0.1 mg tablet 0.1 mg PO TID (DME) FreeStyle Lite Strips Strip 1 strip MISCELLANEOUS TID simvastatin 20 mg tablet 20 mg PO BEDTIME insulin lispro 100 unit/mL insulin pen 1 sliding scale dose subcut TIDAC Protocol: Insulin Correction Scale Less than or equal to 110 ---- Give (units): 0 111 to 150 Give (units): 33 151 to 200 Give (units): 37 201 to 250 Give (units): 41 251 to 300 Give (units): 43 301 to 350 Give (units): 45 Greater than 350 Give (units): 47 Call MD if Blood Glucose > : 400 Rx Instructions: inject subq 3x daily with meals per sliding scale 80-99 inject 31 units 100-149 inject 33 units 150-199 inject 37 units 200-249 inject 41 units 250-299 inject 43 units 300-349 inject 45 units 350-399 inject 47 units 400 and higher: inject 49 units and call (MARLON) pen needle, diabetic [BD Ultra-Fine Micro Pen Needle] 32 gauge x 1/4 needle MISCELLANEOUS Ubrelvy 100 mg tablet 100 mg PO Q2H PRN (Reason: Migraine Headache) Rx Instructions: take at onset of migraine. MRX1 after 2 hours. Do not exceed 2 doses in 24 hours levothyroxine 125 mcg tablet 125 mcg PO DAILY@0600 insulin glargine [Lantus Solostar U-100 Insulin] 100 unit/mL (3 mL) insulin pen 52 unit subcut BID Rx Instructions: inject 52 units subq in the morning (8am) and 52 units at night (8pm) aspirin 81 mg Tablet,Delayed Release (Dr/Ec) 81 mg PO DAILY cholecalciferol (vitamin D3) 25 mcg (1,000 unit) Tablet 25 mcg PO DAILY divalproex [Depakote] 125 mg tablet,delayed release (DR/EC) 125 mg PO DAILY diclofenac sodium 1 % gel 4 g topical QID Qty: 100 0RF Rx Instructions: apply to single knee, ankle, foot; for foot includes sole/toes/top of foot tramadol 50 mg tablet 50 mg PO Q6H PRN (Reason: severe pain (scale score 7-10)) Qty: 14 0RF gabapentin 100 mg capsule 100 mg PO TID Print Language: Japanese
[2024-05-26 21:53] LABS: MANUAL DIFF FLAG NO
[2024-05-26 21:54] LABS: Basophils Percent Auto 0.3 % (0-2); Eosinophils Absolute Auto 0.3 X10*3/uL (0.0-0.4); Eosinophils Percent Auto 2.9 % (0-4); Hematocrit 35.9 % (37.0-47.0); Hemoglobin 12.3 g/dl (12.0-16.0); Imm Gran Abs Auto 0.03 X10*3/uL (0.00-0.03); Imm Gran Pct Auto 0.3 % (0.0-0.4); Lymphocytes Percent Auto 33.1 % (20-40); Mean Corpuscular HGB Conc 34.3 g/dl (31.0-35.0); Mean Corpuscular Hemoglobin 29.8 pg (27.0-33.0); Mean Corpuscular Volume 86.9 fL (80.0-98.0); Mean Platelet Volume 11.4 fL (9.4-12.3); Monocytes Absolute Auto 0.9 X10*3/uL (0.1-1.2); Monocytes Percent Auto 9.9 % (2-11); Neutrophils Absolute Auto 4.8 x10*3/uL (2.0-8.3); Neutrophils Percent Auto 53.5 % (45-73); Platelet Count 257 X10*3/uL (160-400); Red Blood Count 4.13 X10*6/uL (4.20-5.50); Red Cell Distribution Width 12.7 % (11.0-16.0); White Blood Count 8.9 X10*3/uL (4.8-10.8)
[2024-05-26 22:08] LABS: Alanine Aminotransferase 50 U/L (0-31); Albumin Level 3.7 g/dL (3.5-5.0); Alkaline Phosphatase 118 U/L (39-117); Anion Gap 8 (12-20); Aspartate Amino Transferase 44 U/L (5-31); Blood Urea Nitrogen 19 mg/dL (9-16); Calcium 8.6 mg/dL (8.4-10.2); Carbon Dioxide 30 mmol/L (22-29); Chloride 106 mmol/L (96-108); Creatinine Clr Calc Pharmacy 66.2; Estimated Glomerular Filt Rate 56; Glucose Random 185 mg/dL (60-115); Potassium 4.1 mmol/L (3.3-5.1); Sodium 140 mmol/L (135-145)
[2024-05-26 22:16] LABS: Troponin-I High Sensitivity < 2.7 ng/L (<3.5-17.0)
[2024-05-26 22:32] LABS: Influenza A PCR NEGATIVE (Negative); Influenza B PCR NEGATIVE (Negative); Resp Syncy Virus RNA Qual PCR NEGATIVE (Negative); SARS COV2 PCR INHOUSE NEGATIVE (Negative)
--- NOTE | 2024-05-26 23:54 | MHC.EDTECH ---
Assumed care of Pt at 2300.
[2024-05-27] VITALS: BP 123/57; PULSE 76; RESP 16; TEMP 36.1; O2SAT 96
[2024-05-27 02:38] VITALS: BP 116/39; PULSE 74; RESP 16; TEMP 36.1; O2SAT 95
[2024-05-27 02:49] LABS: Appearance Urine Clear; Color Urine Yellow; Glucose Urine UA Negative (Negative); Leukocyte Esterase Urine Negative (Negative); Nitrite Urine Negative (Negative); Urine Blood Negative (Negative); Urine Ketones Negative (Negative); Urine Protein Negative (Neg-Trace)
[2024-05-27 03:02] LABS: Amphetamine Screen Urine Not Detected (Not Detect); Barbiturates, Urine Not Detected (Not Detect); Benzodiazepines Screen Urine Not Detected (Not Detect); Buprenorphine Scr Not Detected (Not Detect); Cannabinoid Screen Urine Not Detected (Not Detect); Cocaine Screen Urine Not Detected (Not Detect); Fentanyl, urine Not Detected (Not Detect); Methadone Screen, Urine Not Detected (Not Detect); Opiate Screen Urine Not Detected (Not Detect); Oxycodone Screen Urine Not Detected (Not Detect); Phencyclidine Screen Urine Not Detected (Not Detect)
[2024-05-27 03:47] VITALS: BP 119/56; PULSE 79; RESP 16; TEMP 36.4; O2SAT 98
[2024-05-27 04:29] VITALS: BP 119/56; PULSE 79; RESP 16; TEMP 36.4; O2SAT 98
== END 2024-05-27 04:49 | disposition home or self-care (01) ==
PROVIDERS: Internal Medicine; Emergency Provider Emergency Medicine; PCP Internal Medicine
DX: R53.81 Other malaise (principal); E11.22 Type 2 diabetes mellitus with diabetic chronic kidney disease; I12.9 Hypertensive chronic kidney disease with stage 1 through stage 4 chronic kidney disease, or unspecified chronic kidney disease; N18.2 Chronic kidney disease, stage 2 (mild); E78.5 Hyperlipidemia, unspecified; R29.700 NIHSS score 0; Z03.818 Encounter for observation for suspected exposure to other biological agents ruled out; Z79.4 Long term (current) use of insulin; Z79.02 Long term (current) use of antithrombotics/antiplatelets; Z79.899 Other long term (current) drug therapy
CPT/HCPCS: 0241U; 36415; 51701; 70450; 80053; 80307; 81003; 84484; 85025; 93005; 99284

== ENCOUNTER → 2024-05-26 21:25 | Outpatient (BNV) | payer MEDICARE, SELFPAY | PROVIDERS: Emergency Provider Emergency Medicine; PCP Internal Medicine; Visit Provider Internal Medicine Cardiovascular Disease | DX: I44.0 Atrioventricular block, first degree (principal) | CPT/HCPCS: 93010 ==

== ENCOUNTER 2024-06-16 14:48 | Outpatient (AMB) | payer MEDICARE, SELFPAY ==
--- OUTSIDE RECORDS SUMMARY | 2024-06-16 14:53 | XMS_ITS | Encounter Summary ---
Author Organization [facility] Address [address] [place] [address] Care Team Providers Care Tire Fabricator Name Role Phone Bhakti Rodgers MD Primary Care Provider [phone] Encounter Details Date Type Department Care Team Description 12/22/2023 Orthodontic Band Maker Report Medical Records [address] [place] [id number] Delano Johnson, [employer] Social History Tobacco Use Types Packs/Day Years Used Date Smoking Tobacco: Never Smokeless Tobacco: Never Alcohol Use Standard Drinks/Week Comments No 0 (1 standard drink = 0.6 oz pur e alcohol) Sex Assigned at Date Recorded Female 08/20/2020 12:54 AM EDT Job Start Date Occupation Industry Not on file Not on file Not on file documented as of this encounter Plan of Treatment Not on file documented as of this encounter Visit Diagnoses Not on filedocumented in this encounter Care Teams Tire Fabricator Relationship Specialty Start Date End Date Bhakti Rodgers MD [address] [place] [address] [phone] PCP - General Internal Medicine 07/02/20 documented as of this encounter
--- OUTSIDE RECORDS SUMMARY | 2024-06-16 14:53 | XMS_ITS | Encounter Summary ---
Author Organization [facility] Address [address] [place] [address] Care Team Providers Care Armature Bander Name Role Phone hBakti Rodgers MD Primary Care Provider Encounter Details Date Type Department Care Team Description 09/23/2021 Marketing Account Manager Report Medical Records [address] [place] [id number] Corey Lund MD Social History Tobacco Use Types Packs/Day Years Used Date Smoking Tobacco: Never Smokeless Tobacco: Never Alcohol Use Standard Drinks/Week Comments No 0 (1 standard drink = 0.6 oz pur e alcohol) Sex Assigned at Date Recorded Female 08/20/2020 12:54 AM EDT Job Start Date Occupation Industry Not on file Not on file Not on file COVID-19 Exposure Response Date Recorded In the last 10 days, have yo u been in contact with someone who was confirmed or suspected to have Coronavirus/COVID-19? No / Unsure 09/24/2021 9:40 AM EDT documented as of this encounter Plan of Treatment Not on file documented as of this encounter Visit Diagnoses Not on filedocumented in this encounter Care Teams Armature Bander Relationship Specialty Start Date End Date Bhakti Rodgers MD [address] [place] [address] [phone] PCP - General Internal Medicine 07/02/20 documented as of this encounter
--- OUTSIDE RECORDS SUMMARY | 2024-06-16 14:53 | XMS_ITS | Encounter Summary ---
Author Organization [facility] Address [address] [place] [address] Care Team Providers Care Film Booker Name Role Phone Bhakti Rodgers MD Primary Care Provider [phone] Encounter Details Date Type Department Care Team Description 08/16/2023 Orders Only Medical Records [address] [place] [id number] Ariella Cooley Social History Tobacco Use Types Packs/Day Years [...] on file documented as of this encounter Procedures Procedure Name Priority Date/Time Associated Diagnosis Comments OUTSIDE VASCULAR STUDY Routine 08/06/2023 OUTSIDE VASCULAR STUDY Routine 08/05/2023 OUTSIDE MRI/MRA Routine 08/05/2023 OUTSIDE PLAIN FILM Routine 08/05/2023 documented in this encounter Results * OUTSIDE VASCULAR STUDY (08/06/2023) Joey Bloom CARDIOLOGY * OUTSIDE MRI/MRA (08/05/2023) Ariella Cooley RADIOLOGY * OUTSIDE PLAIN FILM (08/05/2023) Ariella Cooley RADIOLOGY * OUTSIDE VASCULAR STUDY (08/05/2023) Ariella Cooley CARDIOLOGY documented in this encounter Visit Diagnoses Not on filedocumented in this encounter Care Teams Film Booker Relationship Specialty Start Date End Date Bhakti Rodgers MD [address] [place] [address] [phone] PCP - General Internal Medicine 07/02/20 documented as of this encounter
--- OUTSIDE RECORDS SUMMARY | 2024-06-16 14:53 | XMS_ITS | Clinical Summary ---
Author Organization [facility] Address [address] [place] [address] Phone Care Team Providers Care Ice Crusher Name Role Phone Bhakti Rodgers MD Primary Care Provider [phone] Allergies Active Allergy Reactions Criticality Noted Date Comments Azithromycin Hives 06/11/2015 Metformin Diarrhea High 10/18/2018 Medications Medication Sig Dispensed Refills Start Date End Date Status ammonium lactate (AMLACTIN) 12 % cream Apply topically as needed for dry skin. Active aspirin 81 mg chewable tablet Chew 1 tablet (81 mg total) by mouth daily. Active buPROPion XL (WELLBUTRIN XL) 300 mg 24 hr tablet Take 1 tablet (300 mg total) by mouth 1 (one) time each day. Active citalopram (CeleXA) 40 mg tablet Take 1 tablet (40 mg total) by mouth 1 (one) time each day. Active cloNIDine (CATAPRES) 0.1 mg tablet TAKE 1 TABLET BY MOUTH THREE TIMES DAILY 11/09/2023 Active fremanezumab-vfr m (AJOVY) 225 mg/1.5 mL auto-injector Inject under the skin. Active insulin glargine (Lantus Solostar U-100 Insulin) 100 unit/mL (3 mL) injection pen INJECT 52 UNITS SUBCUTANEOUSLY IN THE MORNING AND 52 UNITS AT NIGHT 11/18/2023 Active insulin lispro (HumaLOG KwikPen Insulin) 100 unit/mL injection pen Inject three times a day BEFORE meals per scale: 100-125: 7 units; 126-150: 12 units; 151-200: 17 units; 201-250: 19 units; 251-300: 22 units; 301-350: 27 units; 351-400: 32 units 11/18/2023 Active levothyroxine (SYNTHROID, LEVOTHROID) 125 mcg tablet Take 1 tablet (125 mcg total) by mouth 1 (one) time each day. 11/03/2023 Active melatonin 3 mg tablet Take by mouth every night at bedtime. Active primidone (MYSOLINE) 50 mg tablet Take 1 Tablet by mouth 3 times daily. Active simvastatin (ZOCOR) 20 mg tablet Take 1 Tablet by mouth at bedtime. 11/03/2023 Active spironolactone-h ydroCHLOROthiazi de (ALDACTAZIDE) 25-25 mg per tablet Take 1 tablet (25 mg total) by mouth 1 (one) time each day. Active SUMAtriptan succinate, bulk, 100 % powder Take by mouth. Active gabapentin (NEURONTIN) 100 mg capsule TAKE 1 CAPSULE BY MOUTH THREE TIMES DAILY 270 capsule 1 03/24/2024 Active cholecalciferol (VITAMIN D-3) 25 mcg (1,000 unit) capsule Take 1 capsule (1,000 Units total) by mouth 1 (one) time each day. 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 Encounters Date Type Department Care Team Description 05/30/2024 Telephone Adult Medicine [address] [phone] Devi Luther RN ER follow up 05/17/2024 9:15 AM EST Office Visit [facility] Hematology Oncology [address] [place] [phone] Eddie De Leon MD Phyllodes tumor of breast (Primary Dx); Pulmonary nodules 04/24/2024 9:22 AM EST - 04/24/2024 11:59 PM EST [facility] [address] [phone] Encounter for screening mammogram for breast cancer Discharge Disposition: Home or Self Care from Last 3 Months Immunizations Name Administration Dates Next Due [facility] SARS-CoV-2 COVID-19, mRNA, LNP-S, preservative free 08/21/2020 Surgical History Surgery Date Site/Laterality Comments CHOLECYSTECTOMY 1985 PROCEDURE: [place] CHOLECYSTECTOMY SECTION 1980, 1983 PROCEDURE: HISTORICAL CATARACT EXTRACTION 02/24/19, 03/09/19 PROCEDURE: HISTORICAL CATARACT REMOVAL; COMMENT: bilateral OTHER SURGICAL HISTORY PROCEDURE: [place] MASTECTOMY SIMPLE COMPLETE; COMMENT: s/pleft mastectomy 05/2019 BREAST BIOPSY 03/2019 PROCEDURE: BX BREAST; PERC NEEDLE CORE W/IMAG GUID; COMMENT: lt breast bx-breast ca-tumor MASTECTOMY Medical History Medical History Date Comments Diabetes mellitus type 2, uncontrolled DX:Diabetes mellitus type 2, uncontrolled Hypertension DX:Hypertension Depression DX:Depression Hypercholesteremia DX:Hyperchole steremia Hypothyroidism DX:Hypothyroidis m Osteoarthritis of left knee DX:O steoarthritis of left knee Neurodermatitis 07/22/2015 DX:Neurodermatit is 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 (CMS/HCC) DX:CKD stage 3 due to type 2 diabetes mellitus (HCC) Hemiplegic migraine 07/24/2020 DX:Hemiplegi c migraine; COMMENT: 2017 and 06/30 episodes Controlled type 2 diabetes m ellitus with cataract (CMS/HCC) 11/27/2020 DX:Controlled type 2 diabete s mellitus with cataract (HCC) Personal history of malignan t neoplasm of breast DX:Personal history of malig nant neoplasm of breast; COMMENT: phylloides tumor-05/2019 mastectomy lt KUMAR (obstructive sleep apnea) 04/13/2022 DX :KUMAR (obstructive sleep apnea) 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 DX :Malignant catatonia (HCC); COMMENT: Avoid triptans, SSRIs, bupropion Breast cancer (CMS/HCC) Family History Medical History Relation Name Comments Alcohol/Drug Daughter 1 Depression Mother Diabetes Mother Lung cancer Mother Breast cancer Neg Hx Colon cancer Neg Hx Ovarian cancer Neg Hx Uterine cancer Neg Hx Relation Name Status Comments Brother Alive Daughter 1 Daughter 2 Alive Daughter 3 Alive Father Maternal Grandfather Maternal Grandmother Mother Paternal Grandfather Paternal Grandmother Sister Alive Social History Tobacco Use Types Packs/Day Years Used Date Smoking Tobacco: Never Smokeless Tobacco: Never Alcohol Use Standard Drinks/Week Comments No 0 (1 standard drink = 0.6 oz pur e alcohol) Sex and Gender Information Value Date Recorded Sex Assigned at Female 03/15/2024 8:34 AM EST Gender Identity Female 03/15/2024 8:34 AM EST Sexual Orientation Straight 03/15/2024 8: 34 AM EST Job Start Date Occupation Industry Not on file Not on file Not on file Obstetrics History Para Term AB IAB SAB Ectopic Multiple Livin g Live Births 2 Last Filed Vital Signs Vital Sign Reading Time Taken Comments Blood Pressure 152/79 05/17/2024 9:13 AM EST Pulse 86 05/17/2024 9:13 AM EST Temperature 36.1 ??C (97 ??F) 05/17/2024 9:13 AM EST Respiratory Rate - - Oxygen Saturation 97% 05/17/2024 9:13 AM EST Inhaled Oxygen Concentration - - Weight 112 kg (246 lb) 05/17/2024 9:13 AM EST Height 162.6 cm (5' 4 ) 04/24/2024 9:52 AM EST Body Mass Index 42.23 04/24/2024 9:52 AM EST Plan of Treatment Upcoming Encounters Date Type Department Care Team (Late st Contact Info) Description 07/12/2024 8:45 AM EST Office Visit Adult Medicine [address] [phone] Bhakti Rodgers MD [address] [place] [address] 07/18/2024 8:30 AM EDT Office Visit [address] [phone] Caitlin Nash PA [address] [place] [address] 11/22/2024 9:00 AM EDT Office Visit [facility] Hematology Oncology [address] [place] [address] Eddie De Leon MD [address] [place] [address] Health Maintenance Due Date Last Done Comments Diabetes: Annual Foot Exam 1962 Diabetes: Annual Retina Eye Exam 1962 RSV Immunization Patients 60+ Years Old (1 - Risk 60-74 years 1-dose series) 2012 COVID-19 Vaccine (3 - Pfizer risk series) 10/12/2020 09/14/2020, 08/21/2020 Cholesterol Screening (Lipid Panel) 04/18/2022 Colorectal Cancer Screening: Colonoscopy 04/18/2022 Depression Screening 04/18/2022 Falls Risk Assessment 04/18/2022 Hepatitis C Screening 04/18/2022 Medicare Annual Wellness Visit 04/18/2022 Social Influencers of Health Screening 04/18/2022 Diabetes: Annual Urine Albumin-Creatinine Ratio (uACR) 04/19/2022 Diabetes: Blood Sugar Control Test (HGBA1C) 07/11/2024 01/12/2024, 09/17/2023 Diabetes: Annual GFR (Glomerular Filtration Rate) 09/16/2024 09/17/2023, 08/05/2022, 08/05/2022, Additional history exists Hypertension/CHF/CAD Annual BMP Blood Test 09/16/2024 09/17/2023, 08/05/2022, 08/05/2022, Additional history exists Breast Cancer Screening 04/24/2026 04/24/20, 02/11/2021, 02/03/2021, Additional history exists DTaP,Tdap,and Td Vaccines (2 - Td or Tdap) 06/29/2032 06/29/2022 Osteoporosis Screening (Bone Density Screening) 07/03/2035 07/03/2020, 11/24/2017 Zoster Vaccines Completed 10/02/2020, 05/12/2020, 08/03/2020, Additional history exists Pneumococcal Vaccine: 65+ Years Completed 06/29/2022, 10/15/2017, 12/19/2015, Additional history exists Influenza Vaccine Completed 01/30/2024, , 02/07/2022, Additional history exists HIB Vaccines Aged Out No longer eligi ble based on patient's age to complete this topic HPV Vaccines Aged Out No longer eligi ble based on patient's age to complete this topic Hepatitis A Vaccines Aged Out No long er eligible based on patient's age to complete this topic Hepatitis B Vaccines Aged Out No long er eligible based on patient's age to complete this topic IPV Vaccines Aged Out No longer eligi ble based on patient's age to complete this topic MMR Vaccines Aged Out No longer eligi ble based on patient's age to complete this topic Meningococcal ACWY Vaccine Aged Out N o longer eligible based on patient's age to complete this topic RSV Immunization Patients Under 20 months Aged Out No longer eligible based on patient's age to complete this topic Varicella Vaccines Aged Out No longer eligible based on patient's age to complete this topic Procedures Procedure Name Priority Date/Time Associated Diagnosis Comments MG MAMMO DIGITAL SCREENING W DIMA RIGHT Routine 04/24/2024 9:53 AM EST Encounter for screening mammogram for breast cancer HM ANNUAL BMP BLOOD TEST Routine 08/05/2022 DXA BONE DENSITY STUDY 1+ SITS AXIAL SKEL Routine 07/03/2020 9:59 AM EST Encounter for prophylactic measures, unspecified from Last 3 Months or Most Recently Relevant to Health Maintenance Results * MG Mammo Digital Screening w Dima Right (04/24/2024 9:53 AM EST) Anatomical Region Laterality Modality Breast Right Mammography 04/26/2024 10:1 9 AM EST Impressions 04/26/2024 10:28 AM EST No mammographic evidence of malignancy. A negative mammogram in the presence of a clinically suspicious palpable abnormality does not preclude the possibility of malignancy or alter the indications for biopsy. PQRI CPT II 3342F Code 22254, 42219 PQRI 225 CPT II 7025F TISSUE DENSITY: There are scattered areas of fibroglandular density. (BI-RADS category B) IMPRESSION: Benign. BI-RADS CATEGORY: 2 - BENIGN RECOMMENDATION: Screening bilateral mammogram is recommended in 1 year. Mammo Location: [facility], [address] [place] [address] -------- FINAL REPORT -------- Dictated By: Isreal Hernadez Dictated Date: 04/26/2024 10:19 ET Assigned Physician: Isreal Hernadez Reviewed and Electronically Signed By: Isreal Hernadez Signed Date: 04/26/2024 10:28 ET Workstation ID: [id number] Transcribed By: Self Edit Transcribed Date: 04/26/2024 10:22 ET Narrative 04/26/2024 10:28 AM EST CLINICAL: The patient is a 73 years Female presenting for routine screening mammography. The patient has a personal history of left breast cancer, treated with mastectomy in 2019. The patient underwent right breast biopsy in 2020, pathology benign. COMPARISON: Most recently 04/21/2023 and most remotely 01/25/2020. ?? TECHNIQUE: Full-field digital mammography of the right breast consisting of tomosynthesis in MLO and CC projection is performed in the haku 2000-D unit. ??Computer aided detection utilizing the iCAD system was utilized. FINDINGS: The breasts are again seen to be composed of a combination of fatty and fibroglandular elements as also demonstrated on prior studies. Bilateral punctate and coarse calcification are without suspicious interval change. A calcified oil cyst is incidentally noted in the right breast. A nodular density in the upper outer quadrant of the right breast is stable and is therefore again regarded as being benign. There is no suspicious cluster of microcalcifications, suspicious mass, or area of architectural distortion. There is no skin thickening or nipple retraction. Procedure Note Isreal Hernadez MD - 04/26/2024 CLINICAL: The patient is a 73 years Female presenting for routinescreening mammography. The patient has a personal history of left breastcancer, treated with mastectomy in 2018. The patient underwent rightbreast biopsy in 2020, pathology benign. COMPARISON: Most recently 04/21/2023 and most remotely 01/25/2020. TECHNIQUE: Full-field digital mammography of the right breast consistingof tomosynthesis in MLO and CC projection is performed in the [employer] 2000-D unit. Computer aided detection utilizing the Bid[employer]orDsystem was utilized. FINDINGS: The breasts are again seen to be composed of a combination offatty and fibroglandular elements as also demonstrated on prior studies.Bilateral punctate and coarse calcification are without suspiciousinterval change. A calcified oil cyst is incidentally noted in the rightbreast. A nodular density in the upper outer quadrant of the right breastis stable and is therefore again regarded as being benign. There is nosuspicious cluster of microcalcifications, suspicious mass, or area ofarchitectural distortion. There is no skin thickening or nippleretraction. IMPRESSION: No mammographic evidence of malignancy. A negative mammogram in the presence of a clinically suspicious palpableabnormality does not preclude the possibility of malignancy or alter theindications for biopsy. PQRI CPT II 3342F Code 92200, 26197 PQRI 225 CPT II 7025F TISSUE DENSITY: There are scattered areas of fibroglandular density.(BI-RADS category B) IMPRESSION: Benign. BI-RADS CATEGORY: 2 - BENIGN RECOMMENDATION: Screening bilateral mammogram is recommended in 1 year. Mammo Location: [facility], [address] [place] [id number] -------- FINAL REPORT -------- Dictated By: Isreal Hernadez Dictated Date: 04/26/2024 10:19 ET Assigned Physician: Isreal Hernadez Reviewed and Electronically Signed By: Isreal Hernadez Signed Date: 04/26/2024 10:28 ET Workstation ID: [id number] Transcribed By: Self Edit Transcribed Date: 04/26/2024 10:22 ET Self Referral Sppl IMG BI PROCEDURES * Annual BMP Blood Test (08/05/2022) Annual BMP Blood Test abstracted Historical Provider MD DANA Guardado * DXA BONE DENSITY STUDY 1+ SITS AXIAL SKEL (07/03/2020 9:59 AM EST) Anatomical Region Laterality Modality Bone Densitometr y 05/29/2020 12:2 0 PM EST Narrative 07/03/2020 12:44 PM EST BONE DENSITY (DEXA) ? Lumbar Spine T-score is 2.8. ?? (SD relative to 20-29 y/o adult) Z-score is 4.7. ??(SD relative to age matched peers) This is considered normal by WHO criteria. Left Hip T-score is 1.0. Z-score is 2.7. This is considered normal by WHO criteria. IMPRESSION: This patient is considered to have normal bone density by WHO criteria. The [facility] Department of Internal Medicine recommends using National Osteoporosis Foundation (NOF) guidelines in treatment decisions related to osteoporosis. NOF guidelines suggest considering treatment for postmenopausal women and men aged 50 or older presenting with the following: History of hip or vertebral fracture. T-score = -2.5 (DXA) at the femoral neck, total hip, or spine, after appropriate evaluation to exclude secondary causes. Low bone mass (T-score between -1.0 and -2.5 at the femoral neck or spine) AND a 10-year probability of a hip fracture = 3% OR a 10-year probability of a major osteoporosis-related fracture = 20% based on the [place]-adapted WHO algorithm Please note that all treatment decisions require clinical judgment and consideration of individual patient factors, including patient preferences, co-morbidities, previous drug use, risk factors not captured in the FRAX model (e.g., frailty, falls, vitamin D deficiency, increased bone turnover, interval significant decline in bone density) and possible under- or over-estimation of fracture risk by FRAX. Optional alternative screening schedule based on migdalia Padilla., [facility] May 28, 2011 for patients with osteopenia (based on hip BMD T-score) is as follows: * ??advanced osteopenia (T scores -2.00 to -2.49), BMD testing every year * ??moderate osteopenia (T scores -1.50 to -1.99), BMD testing every 5 years mild osteopenia or normal BMD (T scores -1.50 and higher), BMD testing every 15 years Procedure Note Crystal Jarquin MD - 04/28/2022 BONE DENSITY (DEXA) Lumbar Spine T-score is 2.8. (SD relative to 20-29 y/o adult) Z-score is 4.7. (SD relative to age matched peers) This is considered normal by WHO criteria. Left Hip T-score is 1.0. Z-score is 2.7. This is considered normal by WHO criteria. IMPRESSION: This patient is considered to have normal bone density by WHO criteria. The [facility] Department of Internal Medicine recommendsusing National Osteoporosis Foundation (NOF) guidelines in treatment decisions related toosteoporosis. NOF guidelines suggest considering treatment for postmenopausal women and menaged 50 or older presenting with the following: History of hip or vertebral fracture. T-score = -2.5 (DXA) at the femoral neck, total hip, or spine, afterappropriate evaluation to exclude secondary causes. Low bone mass (T-score between -1.0 and -2.5 at the femoral neck or spine)AND a 10-year probability of a hip fracture = 3% OR a 10-year probability of a majorosteoporosis-related fracture = 20% based on the [place]-adapted WHO algorithm Please note that all treatment decisions require clinical judgment andconsideration of individual patient factors, including patient preferences, co- morbidities,previous drug use, risk factors not captured in the FRAX model (e.g., frailty, falls, vitaminD deficiency, increased bone turnover, interval significant decline in bone density) andpossible under- or over-estimation of fracture risk by FRAX. Optional alternative screening schedule based on patrick Padilla al., [facility] for patients with osteopenia (based on hip BMD T-score) is as follows: * advanced osteopenia (T scores -2.00 to -2.49), BMD testing every year * moderate osteopenia (T scores -1.50 to -1.99), BMD testing every 5years mild osteopenia or normal BMD (T scores -1.50 and higher), BMD testingevery 15 years Kizzy Marshall MD IMG DXA PROCEDURES from Last 3 Months or Most Recently Relevant to Health Maintenance Advance Directives Documents on File Type Date Recorded Patient Set Up Mechanic Coil Winding Machines Expl anation Health Care Decision (hx) 01/27/2022 AD MARKHAM DIRECTIVE Health Care Decision (hx) 01/27/2022 AD MARKHAM DIRECTIVE Health Care Decision (hx) 01/27/2022 AD MARKHAM DIRECTIVE Health Care Decision (hx) 01/27/2022 AD MARKHAM DIRECTIVE Health Care Decision (hx) 01/27/2022 AD MARKHAM DIRECTIVE Health Care Decision (hx) 01/27/2022 AD MARKHAM DIRECTIVE Health Care Decision (hx) 01/27/2022 AD MARKHAM DIRECTIVE Health Care Decision (hx) 01/27/2022 AD MARKHAM DIRECTIVE Health Care Decision (hx) 01/27/2022 AD MRAKHAM DIRECTIVE Health Care Decision (hx) 01/27/2022 AD MARKHAM DIRECTIVE Care Teams Ice Crusher Relationship Specialty Start Date End Date Bhakti Rodgers MD [address] [place] [id number] PCP - General Internal Medicine 07/02/20
--- OUTSIDE RECORDS SUMMARY | 2024-06-16 14:53 | XMS_ITS | Encounter Summary ---
Author Organization [facility] Address [address] [place] [address] Care Team Providers Care Batch Plant Operator Name Role Phone Bhakti Rodgers MD Primary Care Provider [phone] Encounter Details Date Type Department Care Team Description 10/15/2021 SCAN [facility] Medical [facility] [address] [place] [phone] Yohannes Edwards PA-C Social History Tobacco Use Types Packs/Day Years [...] on filedocumented in this encounter Care Teams Batch Plant Operator Relationship Specialty Start Date End Date Bhakti Rodgers MD [address] [place] [address] [phone] PCP - General Internal Medicine 07/02/20 documented as of this encounter
--- OUTSIDE RECORDS SUMMARY | 2024-06-16 14:53 | XMS_ITS | Encounter Summary ---
Author Organization [facility] Address [address] [place] [address] Care Team Providers Care Roof Promenade Tile Setter Name Role Phone Bhakti Rodgers MD Primary Care Provider [phone] Reason for Visit * Reason Onset Date Comments Prior Authorization 01/15/2022 Encounter Details Date Type Department Care Team Description 01/15/2022 Telephone Endocrinology - [place] [id number] [place] [address] Caitlin Nash PA-C [address] [place] [address] Prior Authorization Social History Tobacco Use Types Packs/Day Years [...] suspected to have Coronavirus/COVID-19? No / Unsure 12/25/2021 9:25 AM EDT documented as of this encounter Miscellaneous Notes * Telephone Encounter - Thelma Esquivel M.A. - 02/02/2022 4:33 PM EDT Prior authorization for the jardiance was approved Approved from 01/24/22 until 05/09/22 Prior authorization approval number # [id number] Approval faxed to [email or web address] [facility] at [phone] * Telephone Encounter - Thelma Esquivel M.A. - 01/22/2022 11:15 AM EDT Prior authorization for the jardiance completed on cover my meds today Dx code E 11.22 Trials Metformin Trulicity Novolog Lantus Humalog Humulin * Telephone Encounter - Janae Hernandez - 01/22/2022 10:02 AM EDT [facility] calling on status of proir auth * Telephone Encounter - Issac Kasper - 01/15/2022 2:33 PM EDT Prior Authorization for Medication-do not complete and send this encounter unless you have the fax from the pharmacy. Is this a Cover My Meds request: [place] of Medication Jardiance Dose of Medication 10mg tablet What is the RX # from the faxed refill? N/a How does patient take this med? oral What Pharmacy did the fax come from: n/a Pharmacy fax #: n/a [facility] Information from fax: What Prescription Plan does the patient have? [employer] ([email or web address]) documented in this encounter Plan of Treatment Not on file documented as of this encounter Visit Diagnoses Not on filedocumented in this encounter Care Teams Roof Promenade Tile Setter Relationship Specialty Start Date End Date Bhakti Rodgers MD [address] [place] [id number] PCP - General Internal Medicine 07/02/20 documented as of this encounter
--- OUTSIDE RECORDS SUMMARY | 2024-06-16 14:53 | XMS_ITS | Encounter Summary ---
Author Organization [facility] Address [address] [place] [address] Care Team Providers Care Transportation Modeler Name Role Phone Bhakti Rodgers MD Primary Care Provider [phone] Reason for Visit * Reason Onset Date Comments Faxed Order 10/01/2023 Encounter Details Date Type Department Care Team Description 10/01/2023 Telephone Adult Medicine [address] [address] Bhakti Rodgers MD [address] [place] [address] [phone] Faxed Order Social History Tobacco Use Types Packs/Day Years Used Date Smoking Tobacco: Never Smokeless Tobacco: Never Alcohol Use Standard Drinks/Week Comments No 0 (1 standard drink = 0.6 oz pur e alcohol) Sex Assigned at Date Recorded Female 08/20/2020 12:54 AM EDT Job Start Date Occupation Industry Not on file Not on file Not on file documented as of this encounter Miscellaneous Notes * Telephone Encounter - Kierra Manuel - 10/01/2023 9:13 AM EDT [facility] in providers box. documented in this encounter Plan of Treatment Not on file documented as of this encounter Visit Diagnoses Not on filedocumented in this encounter Care Teams Transportation Modeler Relationship Specialty Start Date End Date Bhakti Rodgers MD [address] [place] [phone] PCP - General Internal Medicine 07/02/20 documented as of this encounter
--- OUTSIDE RECORDS SUMMARY | 2024-06-16 14:53 | XMS_ITS | Encounter Summary ---
Author Organization [facility] Address [address] [place] [address] Care Team Providers Care Egg Breaking Machine Operator Name Role Phone Bhakti Rodgers MD Primary Care Provider [phone] Encounter Details Date Type Department Care Team Description 08/17/2023 Hospital Medical Records [address] [place] [address] Heather Villa MD Social History Tobacco Use Types Packs/Day [...] on filedocumented in this encounter Care Teams Egg Breaking Machine Operator Relationship Specialty Start Date End Date Bhakti Rodgers MD [address] [place] [address] PCP - General Internal Medicine 07/02/20 documented as of this encounter
--- OUTSIDE RECORDS SUMMARY | 2024-06-16 14:53 | XMS_ITS | Encounter Summary ---
Author Organization [facility] Address [address] [place] [address] Care Team Providers Care Baseball Winder Name Role Phone Bhakti Rodgers MD Primary Care Provider [phone] Encounter Details Date Type Department Care Team Description 09/06/2023 Transfer Records Medical Records [address] [place] [id number] [place] [address] Social History Tobacco Use Types Packs/Day Years [...] on filedocumented in this encounter Care Teams Baseball Winder Relationship Specialty Start Date End Date Bhakti Rodgers MD [address] [place] [id number] PCP - General Internal Medicine 07/02/20 documented as of this encounter
--- OUTSIDE RECORDS SUMMARY | 2024-06-16 14:53 | XMS_ITS | Clinical Summary ---
Author Organization [facility] Address [address] [place] [address] Care Team Providers Care Correctional Lieutenant Name Role Phone Bhakti Rodgers MD Primary Care Provider [phone] Allergies Active Allergy Reactions Severity Noted Date Comments Azithromycin Hives/Urticaria 06/11/2015 Bupropion 09/12/2023 Malignant catatonia. Avoid bupropion. Erythromycin 09/12/2023 Iv Contrast Dye 02/26/2022 Metformin Diarrhea High 10/18/2018 Serotonin Reuptake Inhibitors 02/04/2024 Malignant catatonia. Avoid SSRIs. Sumatriptan 02/04/2024 Malignant catatonia. Avoid triptans. Medications Medication Sig Dispensed Refills Start Date End Date Status Lancets Micro Thin 33G Misc Apply 1 Each topically 3 times daily. 100 Each 5 02/05/2022 Active aspirin 81 MG EC tabletIndications:T ype 2 diabetes mellitus with stage 3 chronic kidney disease, with long-term current use of insulin, unspecified whether stage 3a or 3b CKD (HCC) Take 1 Tablet by mouth daily. 0 Active Cholecalciferol (Vitamin D-3) 25 MCG (1000 UT) CapIndications:Type 2 diabetes mellitus with stage 3 chronic kidney disease, with long-term current use of insulin, unspecified whether stage 3a or 3b CKD (HCC) Take 1,000 Units by mouth daily. 0 Active dextrose (GLUTOSE) 40 % GelIndications:Type 2 diabetes mellitus with stage 3 chronic kidney disease, with long-term current use of insulin, unspecified whether stage 3a or 3b CKD (HCC) Take 15 g by mouth as needed for Other (hypoglycemia). 37.5 g 2 08/05/2022 Active Glucagon (Baqsimi Two Pack) 3 MG/DOSE PowderIndications:T ype 2 diabetes mellitus with stage 3 chronic kidney disease, with long-term current use of insulin, unspecified whether stage 3a or 3b CKD (HCC) 1 Dose by Nasal route as needed for Other (hypoglycemia). 1 Each 5 08/05/2022 Active Ubrelvy 100 MG Tab TAKE ONE TABLET BY MOUTH AT ONSET OF MIGRAINE. IF SYMPTOMS PERSIST, A SECOND DOSE MAY BE TAKEN IN 2 HOURS. DO NOT EXCEED 2 DOSES IN A 24 HOUR PERIOD, UNLESS OTHERWISE INSTRUCTED BY YOUR PHYSICIAN 0 08/27/2022 Active lorazepam (ATIVAN) 0.5 MG tablet TAKE 1 TABLET BY MOUTH TWICE DAILY NEEDED FOR ANXIETY 0 02/15/2023 Active thiamine 100 MG tablet Take 1 Tablet by mouth daily. 0 Active gabapentin (NEURONTIN) 100 MG capsule Take 1 Capsule by mouth 3 times daily. 270 Capsule 1 09/17/2023 Active levothyroxine 125 MCG tabletIndications:H ypothyroidism, unspecified type Take 1 Tablet by mouth daily. 90 Tablet 1 11/03/2023 Active simvastatin (ZOCOR) 20 MG tablet Take 1 Tablet by mouth at bedtime. 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 270 Tablet 1 01/12/2024 Active Insulin Glargine (Lantus SoloStar) 100 UNIT/ML Solution Pen-injectorIndicat ions:Type 2 diabetes mellitus with stage 3 chronic kidney disease, with long-term current use of insulin, unspecified whether stage 3a or 3b CKD (HCC) INJECT 58 UNITS SUBCUTANEOUSLY IN THE MORNING AND 58 UNITS AT NIGHT 45 mL 5 02/02/2024 Active Insulin Lispro (HumaLOG KwikPen) 100 UNIT/ML Solution Pen-injectorIndicat ions:Type 2 diabetes mellitus with stage 3 chronic kidney disease, with long-term current use of insulin, unspecified whether stage 3a or 3b CKD (HCC) Inject three times a day BEFORE meals per scale: 100-125: 10 units; 126-150: 15 units; 151-200: 20 units; 201-250: 22 units; 251-300: 25 units; 301-350: 30 units; 351-400: 35 units 30 mL 5 02/02/2024 Active Active Problems Patient Care Coordination No te Formatting of this note is d ifferent from the original. Checking Your Blood Sugars Please check your blood sugars every day. Please check your sugars at the following times of day: before breakfast and before bedtime Your Blood Sugar Goals Pre Meal: 90-130 2 hours after meals: 110-160 Bedtime: 110-150 Use the Results ?? Bring your glucometer to every appointment ?? Write your fingerstick blood sugars down on a log sheet or record book. Bring them to your appointment ?? Look for patterns in the numbers. The results help you and your provider make decisions about your diabetes treatment plan. Your Results and your Goals Your Result / Date of Completion Your Goal / How Often to Assess Component Value Date HGBA1C 9.0 06/27/2015 Less than 7% --- 2-4 times per year BP Readings from Last 1 Encounters: 08/26/15 120/70 Less than 140/90 --- once per year No results found for this basename: MALBCR Less than 30 --- once per year Component Value Date LDL 67 06/27/2015 LDL 72 06/27/2015 Less than 100 --- once per year Wt Readings from Last 1 Encounters: 08/26/15 237 lb (107.502 kg) Your goal weight by next visit: 233 --- reassess 2-4 times a year Health Maintenance Due Topic Date Due ? ? Diabetes: Annual Urine Protein Test (Microalbumin) 1970 ? ? Diabetes: Annual Eye Exam 1970 ? ? Diabetes: Annual Foot Exam 1970 ? ? Diabetes: Annual Care Plan 1970 ? ? Pneumovax For High Risk Patients (1) 1970 ? ? Baseline Health Exam 40-64 1992 ? ? Colon Cancer Screening 2002 ? ? Hepatitis C Screening 10/20/2003 ? ? Adult Immunization: Zostavax For Patients Over 60 2012 Your Action Plan Check blood glucose as directed and write down all results. Contact me if you experience any barriers to care such as inability to purchase your medication, difficulty getting to your appointments or difficulty understanding your care plan When to Call your Healthcare Provider If your blood sugar falls below 70 and you do not know why or you become unconscious If you are sick and unable to take liquids because or nausea or vomiting If you have a fever over 101 If your blood sugar is 300 or higher on greater than 3 separate occasions during the same week If you are just unsure what to do Educational Resources [place] [employer] (www.diabetes.org) Centers for Disease Control and Prevention (www.cdc.gov/diabetes) This care plan was created in collaboration with Charissa Nguyen on 08/26/2015 Problem Noted Date 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 Overview: Avoid triptans, SSRIs, bupropion KUMAR (obstructive sleep apnea) 04/13/2022 Overview: UNTREATED (waiting for machine as of 09/07/22) Controlled type 2 diabetes mellitus with cataract 11/27/2020 Hemiplegic migraine 07/24/2020 Overview: 2018 and 06/30 episodes Type II diabetes mellitus with renal man ifestations 09/28/2019 Phyllodes neoplasm of breast 05/26/2019 Morbid obesity with BMI of 40.0-44.9, ad ult 04/11/2018 Neurodermatitis 07/22/2015 Hypertension Depression Hypercholesteremia Hypothyroidism Osteoarthritis of left knee CKD (chronic kidney disease) stage 3, GF R 30-59 ml/min Resolved Problems Problem Noted Date Resolved Date Left upper arm pain 07/01/2023 09/17/2023 Left breast mass 02/20/2019 07/24/2020 Breast mass 02/13/2019 07/24/2020 Overview: Has appointment scheduled with Dr. Cooney Morbid obesity 11/06/2015 09/07/2022 Onychomycosis 11/06/2015 07/07/2017 Diabetes mellitus type 2, uncontrolled 11/06/2015 Immunizations Name Administration Dates Next Due COVID-19 (Pfizer) 09/14/2020,08/21/2020 Flu (Generic) 02/07/2022,03/10/2016,04/24/2015 Influenza (> 6 Months) 03/10/2016,04/24/2015 Influenza Vaccine-quadrivale nt 4 Years Plus 04/08/2017 Influenza vaccine high dose age 65 and over 02/22/2023,02/07/2022,02/26/2021,03/16,03/22/2019,01/19/2018 Pneumoccoccal(Adult) Polysac charide PPSV23 06/29/2022,12/19/2015,06/05/2015 Pneumococcal Conjugate PCV-13 10/15/2017 Shingrix (Patient reported) 10/02/2020,,08/03/2020 Shingrix (Recombinant zoster vaccine) 10/02/2020 ,09/14/2020,08/03/2020 TD (STATE SUPPLIED FOR ADULT S AND CHILDREN) 06/29/2022 Zostavax 01/28/2016 Family History Medical History Relation Name Comments Alcohol and Other Drug Abuse Daughter 3 CA Lung Mother Depression Mother Diabetes Mother CA Breast Negative Hx CA Colon Negative Hx CA Ovarian Negative Hx Uterine Cancer Negative Hx Relation Name Status Comments Brother Alive Daughter 1 Alive Daughter 2 Alive Daughter 3 Father Maternal Grandfather Maternal Grandmother Mother Paternal Grandfather Paternal Grandmother Sister Alive Social History Tobacco Use Types Packs/Day Years Used Date Smoking Tobacco: Never Smokeless Tobacco: Never Tobacco Cessation:Counseling Given: Not Answered Alcohol Use Standard Drinks/Week Comments No 0 (1 standard drink = 0.6 oz pur e alcohol) Sex Assigned at Date Recorded Female 08/20/2020 12:54 AM EDT Job Start Date Occupation Industry Not on file Not on file Not on file Last Filed Vital Signs Vital Sign Reading Time Taken Comments Blood Pressure 120/50 03/06/2024 9:42 AM EDT Pulse 79 03/06/2024 9:42 AM EDT Temperature 35.7 ??C (96.2 ??F) 03/06/2024 9:42 AM ED T Respiratory Rate 16 03/06/2024 9:42 AM EDT Oxygen Saturation 98% 02/02/2024 8:36 AM EDT Inhaled Oxygen Concentration - - Weight 111.1 kg (245 lb) 03/06/2024 9:42 AM EDT Height 162.6 cm (5' 4 ) 03/06/2024 9:42 AM EDT Body Mass Index 42.05 03/06/2024 9:42 AM EDT Plan of Treatment Health Maintenance Due Date Last Done Comments DIABETES: ANNUAL FOOT EXAM 06/12/202106/12 (External Completion), 05/02/2019, 02/01/2019, Additional history exists DIABETES: ANNUAL EYE EXAM 10/22/20222021 (External Completion), 11/24/2019 (External Completion), 08/04/2017 (External Completion of test per patient (Patient reports normal results)), Additional history exists Covid-19 Vaccine (2022-2 4 season) 2024 09/14/2020, 08/21/2020 INFLUENZA (#1) 2024 02/22/2023, 05/2021, 02/26/2021, Additional history exists DEPRESSION SCREEN 02/23/2024 02/22/2023, , 10/15/2017 (Exception) DIABETES: BLOOD SUGAR CONTRO L TEST (HGBA1C) 04/12/2024 01/12/2024, 09/17/2023, 05/26/2023, Additional history exists MAMMOGRAM 04/21/2024 04/21/2023, 01/2022, 02/27/2021, Additional history exists BMI CHECK/ADVISE 05/10/2024 02/04/2024, , 06/30/2023, Additional history exists DIABETES/HEART DISEASE: LUISA BERRIOS CHOLESTEROL (LDL) 05/26/2024 05/26/2023, 09/15/2022, 09/15/2021, Additional history exists DIABETES: ANNUAL URINE PROTE IN TEST (MICROALBUMIN) 05/26/2024 05/26/2023, 09/15/2022, 09/15/2021, Additional history exists FALL RISK ASSESSMENT 02/03/2025 02/04/2024, 08/10/2022 (Completed) COLON CANCER SCREENING 12/04/2026 12/04/2016 DTAP/TDAP/TD (3 - Td or Tdap) 06/29/2032, 12/17/2014 (External Completion of test per patient (Patient reports normal results)) BONE DENSITY SCREENING 07/03/2035 07/03/2020, 2017 HEPATITIS C SCREENING Completed 09/26/2015 SHINGLES VACCINE Completed 10/02/2020, , 09/14/2020, Additional history exists PNEUMOCOCCAL VACCINE Completed 06/29/2022, 10/15/2017, 12/19/2015, Additional history exists Care Teams Correctional Lieutenant Relationship Specialty Start Date End Date Bhakti Rodgers MD [address] [place] [address] [phone] PCP - General Internal Medicine 07/02/20
--- OUTSIDE RECORDS SUMMARY | 2024-06-16 14:53 | XMS_ITS | Encounter Summary ---
Author Organization [facility] Address [address] [place] [address] Care Team Providers Care Centrex Radio Operator Name Role Phone Bhakti Rodgers MD Primary Care Provider [phone] Reason for Visit * Reason Onset Date Comments Faxed Order 10/08/2023 [facility] Order [place] [id number] Encounter Details Date Type Department Care Team Description 10/08/2023 Telephone Adult Medicine [address] [id number] Bhakti Rodgers MD [address] [place] [address] Faxed Order ([facility] Order ID [id number]) Social History Tobacco Use Types Packs/Day Years [...] on filedocumented in this encounter Care Teams Centrex Radio Operator Relationship Specialty Start Date End Date Bhakti Rodgers MD [address] [place] [address] PCP - General Internal Medicine 07/02/20 documented as of this encounter
--- OUTSIDE RECORDS SUMMARY | 2024-06-16 14:53 | XMS_ITS | Encounter Summary ---
Author Organization [facility] Address [address] [place] [address] Care Team Providers Care Travel Agent Name Role Phone Bhakti Rodgers MD Primary Care Provider [phone] Encounter Details Date Type Department Care Team Description 08/10/2023 Hospital Medical Records [address] [place] [id number] [place] [address] Social History Tobacco Use Types Packs/Day Years [...] on filedocumented in this encounter Care Teams Travel Agent Relationship Specialty Start Date End Date Bhakti Rodgers MD [address] [place] [address] PCP - General Internal Medicine 07/02/20 documented as of this encounter
--- OUTSIDE RECORDS SUMMARY | 2024-06-16 14:53 | XMS_ITS | Encounter Summary ---
Author Organization [facility] Address [address] [place] [address] Care Team Providers Care Central Processing Technician Name Role Phone Bhakti Rodgers MD Primary Care Provider [phone] Reason for Visit * Reason Onset Date Comments Faxed Order 10/07/2023 [facility] [place] Order [place] [id number] Encounter Details Date Type Department Care Team Description 10/07/2023 Telephone Adult Medicine [address] [address] Bhakti Rodgers MD [address] [place] [address] [phone] Faxed Order ([facility] Order [place] [id number], [id number]/) Social History Tobacco Use Types Packs/Day Years [...] on filedocumented in this encounter Care Teams Central Processing Technician Relationship Specialty Start Date End Date Bhakti Rodgers MD [address] [place] [address] PCP - General Internal Medicine 07/02/20 documented as of this encounter
--- OUTSIDE RECORDS SUMMARY | 2024-06-16 14:54 | XMS_ITS | Encounter Summary ---
Author Organization [facility] Address [address] [place] [address] Care Team Providers Care Retort Pre Cooker Name Role Phone Kizzy Archibald MD Primary Care Provider Bhakti Hickey MD Primary Care Provider [phone] Encounter Details Date Type Department Care Team Description 06/27/2015 Release of Information Medical Records [address] [place] [address] Abstract, Provider Social History Tobacco Use Types Packs/Day Years [...] on filedocumented in this encounter Care Teams Retort Pre Cooker Relationship Specialty Start Date End Date Kizzy Archibald MD PCP - General Internal Medicine 05/29/15 07/01/20 Bhakti Rodgers MD [address] [place] [id number] PCP - General Internal Medicine 07/02/20 documented as of this encounter
--- OUTSIDE RECORDS SUMMARY | 2024-06-16 14:54 | XMS_ITS | Encounter Summary ---
Author Organization [facility] Address [address] [place] [address] Care Team Providers Care Human Services Care Specialist Name Role Phone Bhakti Rodgers MD Primary Care Provider [phone] Encounter Details Date Type Department Care Team Description 09/29/2022 Hospital Medical Records [address] [place] [address] Michael Hogue Social History Tobacco Use Types Packs/Day Years [...] suspected to have Coronavirus/COVID-19? No / Unsure 09/15/2022 2:13 PM EDT documented as of this encounter Plan of Treatment Not on file documented as of this encounter Visit Diagnoses Not on filedocumented in this encounter Care Teams Human Services Care Specialist Relationship Specialty Start Date End Date Bhakti Rodgers MD [address] [place] [address] [phone] PCP - General Internal Medicine 07/02/20 documented as of this encounter
--- OUTSIDE RECORDS SUMMARY | 2024-06-16 14:54 | XMS_ITS | Encounter Summary ---
Author Organization [facility] Address [address] [place] [address] Care Team Providers Care Belt Puncher Name Role Phone Kizzy Archibald MD Primary Care Provider Bhakti Hickey MD Primary Care Provider [phone] Encounter Details Date Type Department Care Team Description 06/14/2017 Hospital Medical Records [address] [place] [address] Ellen Porter PA-C Social History Tobacco Use Types Packs/Day [...] on filedocumented in this encounter Care Teams Belt Puncher Relationship Specialty Start Date End Date Kizzy Archibald MD PCP - General Internal Medicine 05/29/15 07/01/20 Bhakti Rodgers MD [address] [place] [phone] PCP - General Internal Medicine 07/02/20 documented as of this encounter
--- OUTSIDE RECORDS SUMMARY | 2024-06-16 14:54 | XMS_ITS | Encounter Summary ---
Author Organization [facility] Address [address] [place] [address] Care Team Providers Care Scheduling Specialist Name Role Phone Bhakti Rodgers MD Primary Care Provider Encounter Details Date Type Department Care Team Description 06/22/2022 Hospital Medical Records [address] [place] [address] Halima Martinez PA Social History Tobacco Use Types Packs/Day Years [...] suspected to have Coronavirus/COVID-19? No / Unsure 06/11/2022 12:35 PM EST documented as of this encounter Plan of Treatment Not on file documented as of this encounter Visit Diagnoses Not on filedocumented in this encounter Care Teams Scheduling Specialist Relationship Specialty Start Date End Date Bhakti Rodgers MD [address] [place] [address] [phone] PCP - General Internal Medicine 07/02/20 documented as of this encounter
--- OUTSIDE RECORDS SUMMARY | 2024-06-16 14:54 | XMS_ITS | Encounter Summary ---
Author Organization [facility] Address [address] [place] [address] Care Team Providers Care Field Installer Name Role Phone Bhakti Rodgers MD Primary Care Provider Reason for Visit * Reason Onset Date Comments Call From Insurance Co 06/17/2023 Encounter Details Date Type Department Care Team Description 06/17/2023 Telephone Endocrinology - [place] [address] [place] [address] Caitlin Nash PA-C [address] [place] [address] Call From Insurance Co Social History Tobacco Use Types Packs/Day Years [...] encounter Miscellaneous Notes * Telephone Encounter - Kavitha Tafoya - 06/17/2023 2:28 PM EST Levi from [facility] is calling back about an approval on a prior auth for patient's insulin. States it has been approved, auth# [id number]. This will also be faxed to our office. documented in this encounter Plan of Treatment Not on file documented as of this encounter Visit Diagnoses Not on filedocumented in this encounter Care Teams Field Installer Relationship Specialty Start Date End Date Bhakti Rodgers MD [address] [place] [address] PCP - General Internal Medicine 07/02/20 documented as of this encounter
--- OUTSIDE RECORDS SUMMARY | 2024-06-16 14:54 | XMS_ITS | Encounter Summary ---
Author Organization [facility] Address [address] [place] [address] Care Team Providers Care Transformer Assembly Supervisor Name Role Phone Kizzy Archibald MD Primary Care Provider Bhakti Hickey MD Primary Care Provider [phone] Reason for Visit * Reason Onset Date Comments Prior Authorization 06/12/2020 Encounter Details Date Type Department Care Team Description 06/12/2020 Telephone Endocrinology - [address] [address] Ramone Barajas MD Prior Authorization Social History Tobacco Use Types [...] Telephone Encounter - Thelma Esquivel M.A. - 10/29/2020 3:45 PM EDT Last written on 09/17/20 with refills * Telephone Encounter - Thelma Esquivel M.A. - 06/13/2020 3:48 PM EST Prior authorization completed today on cover my meds for the humalog. Not lispro Dx Type 2 diabetes mellitus with stage 3 chronic kidney disease, with long-term current use of insulin Continuation of therapy Try an fails Januvia Repaglinide Metformin Lantus Victoza humulin * Telephone Encounter - Alejo Dubois - 06/12/2020 2:59 PM EST Prior Authorization for Medication-do not complete and send this encounter unless you have the fax from the pharmacy. Is this a Cover My Meds request: Yes -- Martinez Code [id number] Name of Medication Insulin Lispro (HUMALOG KWIKPEN) 100 UNIT/ML Solution Pen-injector Dose of Medication 100 UNIT/ML Solution Pen-injector What is the RX # from the faxed refill? N/A How does patient take this med? What Pharmacy did the fax come from: [facility] fax #: [facility] Information from fax: What Prescription Plan does the patient have? HNE BIN/PCN if applicable: N/A Cardholder ID:[id number] Person Code: N/A Relationship Code: N/A Help desk phone: documented in this encounter Plan of Treatment Not on file documented as of this encounter Visit Diagnoses Not on filedocumented in this encounter Care Teams Transformer Assembly Supervisor Relationship Specialty Start Date End Date Kizzy Archibald MD PCP - General Internal Medicine 05/29/15 07/01/20 Bhakti Rodgers MD [address] [place] [phone] PCP - General Internal Medicine 07/02/20 documented as of this encounter
--- OUTSIDE RECORDS SUMMARY | 2024-06-16 14:54 | XMS_ITS | Encounter Summary ---
Author Organization [facility] Address [address] [place] [address] Care Team Providers Care Area Director Of Home Health Sales Name Role Phone Bhakti Rodgers MD Primary Care Provider [phone] Encounter Details Date Type Department Care Team Description 07/15/2022 Hospital Medical Records [address] [place] [address] [facility] Social History Tobacco Use Types Packs/Day Years [...] suspected to have Coronavirus/COVID-19? No / Unsure 06/29/2022 10:09 AM EST documented as of this encounter Plan of Treatment Not on file documented as of this encounter Visit Diagnoses Not on filedocumented in this encounter Care Teams Area Director Of Home Health Sales Relationship Specialty Start Date End Date Bhakti Rodgers MD [address] [place] [phone] PCP - General Internal Medicine 07/02/20 documented as of this encounter
--- OUTSIDE RECORDS SUMMARY | 2024-06-16 14:54 | XMS_ITS | Encounter Summary ---
Author Organization [facility] Address [address] [place] [address] Care Team Providers Care Production Grip Name Role Phone Kizzy Archibald MD Primary Care Provider Bhakti Hickey MD Primary Care Provider [phone] Encounter Details Date Type Department Care Team Description 11/21/2019 Home Health Certification Medical Records [address] [place] [address] Social History Tobacco Use Types Packs/Day Years [...] on filedocumented in this encounter Care Teams Production Grip Relationship Specialty Start Date End Date Kizzy Archibald MD PCP - General Internal Medicine 05/29/15 07/01/20 Bhakti Rodgers MD [address] [place] [address] [phone] PCP - General Internal Medicine 07/02/20 documented as of this encounter
--- OUTSIDE RECORDS SUMMARY | 2024-06-16 14:54 | XMS_ITS | Encounter Summary ---
Author Organization [facility] Address [address] [place] [address] Care Team Providers Care Supervisor Dry Cell Assembly Name Role Phone Bhakti Rodgers MD Primary Care Provider [phone] Encounter Details Date Type Department Care Team Description 08/06/2022 Home Health Certification Medical Records [address] [place] [address] Abstract, Provider Social History Tobacco Use Types [...] suspected to have Coronavirus/COVID-19? No / Unsure 08/07/2022 1:02 PM EDT documented as of this encounter Plan of Treatment Not on file documented as of this encounter Visit Diagnoses Not on filedocumented in this encounter Care Teams Supervisor Dry Cell Assembly Relationship Specialty Start Date End Date Bhakti Rodgers MD [address] [place] [address] PCP - General Internal Medicine 07/02/20 documented as of this encounter
--- OUTSIDE RECORDS SUMMARY | 2024-06-16 14:54 | XMS_ITS | Encounter Summary ---
Author Organization [facility] Address [address] [place] [address] Care Team Providers Care Salesperson Yard Goods Name Role Phone Kizzy Archibald MD Primary Care Provider Bhakti Hickey MD Primary Care Provider [phone] Reason for Visit * Reason Onset Date Comments Medication 10/07/2017 refill request 10/07/2017 Encounter Details Date Type Department Care Team Description 10/07/2017 Telephone Medicine/Pediatrics - [address] [phone] Kizzy Archibald MD Medication; refill request Social History Tobacco Use Types Packs/Day Years [...] encounter Miscellaneous Notes * Telephone Encounter - Kizzy Archibald MD - 10/07/2017 4:42 PM EDT signed * Telephone Encounter - Serene Akins R.N. - 10/07/2017 2:43 PM EDT Confirmed with patient that she wanted the Lantus Order pended * Telephone Encounter - Serene Akins R.N. - 10/07/2017 2:33 PM EDT Message left for patient to call back [phone] to confirm med as was not covered previously * Telephone Encounter - Lizeth Sifuentes - 10/07/2017 2:11 PM EDT Insulin Glargine (LANTUS SOLOSTAR) 100 UNIT/ML Solution Pen-injector [Pharmacy Med Name: LANTUS SOLOSTAR 100 UNIT/ML] Pt states she has new coverage that starts tomorrw. She will also call pharmacy and give them the info. Patient needs this med refilled. Please call patiehnt with any ?'s documented in this encounter Plan of Treatment Not on file documented as of this encounter Visit Diagnoses Not on filedocumented in this encounter Care Teams Salesperson Yard Goods Relationship Specialty Start Date End Date Kizzy Archibald MD PCP - General Internal Medicine 05/29/15 07/01/20 Bhakti Rodgers MD [address] [place] [address] PCP - General Internal Medicine 07/02/20 documented as of this encounter
--- OUTSIDE RECORDS SUMMARY | 2024-06-16 14:54 | XMS_ITS | Encounter Summary ---
Author Organization [facility] Address [address] [place] [address] Care Team Providers Care Prefitter Name Role Phone Bhakti Rodgers MD Primary Care Provider [phone] Encounter Details Date Type Department Care Team Description 04/20/2022 Orders Only Medical Records [address] [place] [address] Kizzy Andrea MD [address] [place], [place] [phone] Social History Tobacco Use Types Packs/Day Years [...] suspected to have Coronavirus/COVID-19? No / Unsure 03/27/2022 9:56 AM EST documented as of this encounter Plan of Treatment Not on file documented as of this encounter Procedures Procedure Name Priority Date/Time Associated Diagnosis Comments OUTSIDE MAMMO Routine 04/17/2022 documented in this encounter Results * OUTSIDE MAMMO (04/17/2022) Kizzy Andrea MD RADIOLOGY documented in this encounter Visit Diagnoses Not on filedocumented in this encounter Care Teams Prefitter Relationship Specialty Start Date End Date Bhakti Rodgers MD [address] [place] [address] PCP - General Internal Medicine 07/02/20 documented as of this encounter
--- OUTSIDE RECORDS SUMMARY | 2024-06-16 14:54 | XMS_ITS | Encounter Summary ---
Author Organization [facility] Address [address] [place] [address] Care Team Providers Care Gas Analyst Name Role Phone Bhakti Rodgers MD Primary Care Provider [phone] Encounter Details Date Type Department Care Team Description 05/19/2023 Orders Only Medical Records [address] [place] [address] Eddie De Leon MD Social History Tobacco Use Types Packs/Day [...] Name Priority Date/Time Associated Diagnosis Comments OUTSIDE CT Routine 04/27/2023 documented in this encounter Results * OUTSIDE CT (04/27/2023) Eddie De Leon MD RADIOLOGY documented in this encounter Visit Diagnoses Not on filedocumented in this encounter Care Teams Gas Analyst Relationship Specialty Start Date End Date Bhakti Rodgers MD [address] [place] [address] PCP - General Internal Medicine 07/02/20 documented as of this encounter
--- OUTSIDE RECORDS SUMMARY | 2024-06-16 14:54 | XMS_ITS | Encounter Summary ---
Author Organization [facility] Address [address] [place] [address] Care Team Providers Care Cook Specialty Name Role Phone Bhakti Rodgers MD Primary Care Provider [phone] Encounter Details Date Type Department Care Team Description 06/23/2022 Hospital Medical Records [address] [place] [address] Maria Elena Burris, PAGracielaC Social History Tobacco Use Types Packs/Day Years [...] on filedocumented in this encounter Care Teams Cook Specialty Relationship Specialty Start Date End Date Bhakti Rodgers MD [address] [place] [address] [phone] PCP - General Internal Medicine 07/02/20 documented as of this encounter
--- OUTSIDE RECORDS SUMMARY | 2024-06-16 14:54 | XMS_ITS | Encounter Summary ---
Author Organization [facility] Address [address] [place] [address] Care Team Providers Care Clinical Informatics Spec Name Role Phone Bhakti Rodgers MD Primary Care Provider [phone] Encounter Details Date Type Department Care Team Description 10/09/2022 Hospital Medical Records [address] [place] [address] Lukasz Guajardo MD Social History Tobacco Use Types Packs/Day [...] on filedocumented in this encounter Care Teams Clinical Informatics Spec Relationship Specialty Start Date End Date Bhakti Rodgers MD [address] [place] [address] [phone] PCP - General Internal Medicine 07/02/20 documented as of this encounter
--- OUTSIDE RECORDS SUMMARY | 2024-06-16 14:54 | XMS_ITS | Encounter Summary ---
Author Organization [facility] Address [address] [place] [address] Care Team Providers Care Aligning Checker Name Role Phone Kizzy Archibald MD Primary Care Provider Bhakti Hickey MD Primary Care Provider [phone] Reason for Visit * Reason Comments E-prescribe Rx Request Encounter Details Date Type Department Care Team Description 08/11/2019 Refill Adult Medicine [address] [address] Ramone Barajas MD E-prescribe Rx Request Social History Tobacco Use Types Packs/Day Years [...] encounter Miscellaneous Notes * Telephone Encounter - Reina Blue R.N. - 08/11/2019 3:45 PM EDT Last office visit with Dr Barajas 08/02/19 Lab Results Component Value Date HGBA1C 8.0 03/14/2019 * Telephone Encounter - Ag Dobson M.A. - 08/11/2019 3:22 PM EDT Patient would like script to be: E-PRESCRIBED/FAXED TO PHARMACY WHEN WAS THE PATIENT'S LAST APPOINTMENT IN ADULT MEDICINE? 03/22/2019 WHEN WAS THE LAST TIME THE PATIENT SAW THEIR PCP? Same as above Does patient have an upcoming appointment? Yes 09/20/2019 (THE MEDICATION REQUESTED IS ON THE MED LIST ABOVE) All of the medications requested were on the CURRENT MEDS list Did you check the Pharmacy information above?: YES Patient wants: 30 -day supply Is this a mail order prescription request ? NO If the refill is from a FAXED refill request what is the RX # listed on the fax? N/A Patients current insurance carrier is: Payor: [facility] / Plan: [employer] MEDICARE PLUS $15 BADGER / Product Type: MEDICARE [id number] documented in this encounter Plan of Treatment Not on file documented as of this encounter Visit Diagnoses Not on filedocumented in this encounter Care Teams Aligning Checker Relationship Specialty Start Date End Date Kizzy Archibald MD PCP - General Internal Medicine 05/29/15 07/01/20 Bhakti Rodgers MD [address] [place] [address] PCP - General Internal Medicine 07/02/20 documented as of this encounter
--- OUTSIDE RECORDS SUMMARY | 2024-06-16 14:54 | XMS_ITS | Encounter Summary ---
Author Organization [facility] Address [address] [place] [address] Care Team Providers Care Garment Sorter Name Role Phone Kizzy Archibald MD Primary Care Provider Bhakti Hickey MD Primary Care Provider Encounter Details Date Type Department Care Team Description 06/09/2019 Hospital Medical Records [address] [place] [address] Josiah Cooney MD [address] [place] [address] [phone] Social History Tobacco Use Types Packs/Day Years [...] on filedocumented in this encounter Care Teams Garment Sorter Relationship Specialty Start Date End Date Kizzy Archibald MD PCP - General Internal Medicine 05/29/15 07/01/20 Bhakti Rodgers MD [address] [place] [address] PCP - General Internal Medicine 07/02/20 documented as of this encounter
--- OUTSIDE RECORDS SUMMARY | 2024-06-16 14:54 | XMS_ITS | Encounter Summary ---
Author Organization [facility] Address [address] [place] [address] Care Team Providers Care Base Filler Operator Name Role Phone Bhakti Rodgers MD Primary Care Provider [phone] Reason for Visit * Reason Onset Date Comments VNA Call 08/04/2022 Encounter Details Date Type Department Care Team Description 08/04/2022 Telephone Adult Medicine [facility] [address] [place] [address] Bhakti Rodgers MD [address] [place] [address] [phone] VNA Call Social History Tobacco Use Types Packs/Day Years [...] Recorded In the last 10 days, have mulu villasenor been in contact with someone who was confirmed or suspected to have Coronavirus/COVID-19? No / Unsure 08/07/2022 1:02 PM EDT documented as of this encounter Miscellaneous Notes * Telephone Encounter - Ole Harley L.P.N. - 08/05/2022 10:20 AM EDT VOd given to Lesa Reminded her of the appointment with Dr. Rinaldi at 1 on 08/07 * Telephone Encounter - Bhakti Rodgers MD - 08/04/2022 5:09 PM EDT Ok for VO, needs to keep 08/07 appt for signed orders * Telephone Encounter - Ole Harley L.P.N. - 08/04/2022 4:05 PM EDT Hospital follow up with Dr. Rodgers 08/07 VNA requesting VO for nuring and Pt Please review and advise * Telephone Encounter - Erin Parr - 08/04/2022 4:01 PM EDT [facility]NA CALL Which [facility] office is calling? [place] Full name of caller: layine The caller is intake Is the caller at the patients home?: NO Reason for call: calling for verbal order, please advise. Does caller need an urgent call back? Was CONTACT Telephone # obtained above?: YES Fax #: documented in this encounter Plan of Treatment Not on file documented as of this encounter Visit Diagnoses Not on filedocumented in this encounter Care Teams Base Filler Operator Relationship Specialty Start Date End Date Bhakti Rodgers MD [address] [place] [phone] PCP - General Internal Medicine 07/02/20 documented as of this encounter
--- OUTSIDE RECORDS SUMMARY | 2024-06-16 14:54 | XMS_ITS | Encounter Summary ---
Author Organization [facility] Address [address] [place] [address] Care Team Providers Care Hearing Healthcare Practitioner Name Role Phone Bhakti Rodgers MD Primary Care Provider [phone] Encounter Details Date Type Department Care Team Description 07/16/2022 Hospital Medical Records [address] [place] [address] Reg White MD [address] [place] [address] Social History Tobacco Use Types Packs/Day Years [...] on filedocumented in this encounter Care Teams Hearing Healthcare Practitioner Relationship Specialty Start Date End Date Bhakti Rodgers MD [address] [place] [address] [phone] PCP - General Internal Medicine 07/02/20 documented as of this encounter
--- OUTSIDE RECORDS SUMMARY | 2024-06-16 14:54 | XMS_ITS | Encounter Summary ---
Author Organization [facility] Address [address] [place] [address] Care Team Providers Care Tissue Inserter Name Role Phone Bhakti Rodgers MD Primary Care Provider [phone] Reason for Visit * Reason Onset Date Comments Prior Authorization 08/05/2022 Encounter Details Date Type Department Care Team Description 08/05/2022 Telephone Adult Medicine [address] [address] Bhakti Rodgers MD [address] [place] [address] [phone] Prior Authorization Social History Tobacco Use Types [...] encounter Miscellaneous Notes * Telephone Encounter - Lupe Donovan M.A. - 08/11/2022 2:09 PM EDT AUTH APPROVED EXP 05/09/23 FAXED TO JAZMINE Donovan Prior Auth Dep Ext [id number] * Telephone Encounter - Lupe Donovan M.A. - 08/06/2022 11:32 AM EDT AUTH SENT WITH COVER MY MEDS [id number] Lupe Donovan Prior Auth Dep Ext [id number] * Telephone Encounter - Rene Manuel - 08/05/2022 1:54 PM EDT Prior Authorization for Medication-do not complete and send this encounter unless you have the fax from the pharmacy. Is this a Cover My Meds request: Yes -- Martinez Code [id number] Name of Medication (Baqsimi Two Pack) Dose of Medication 3 MG/DOSE Powder What is the RX # from the faxed refill? Not on form How does patient take this med? Not on form What Pharmacy did the fax come from: [facility] fax #: [phone] [employer] Party Information from fax: What Prescription Plan does the patient have? Not on form BIN/PCN if applicable: Not on form Cardholder ID:Not on form Person Code: Not on form Relationship Code: Not on form Help desk phone: Not on form documented in this encounter Plan of Treatment Not on file documented as of this encounter Visit Diagnoses Not on filedocumented in this encounter Care Teams Tissue Inserter Relationship Specialty Start Date End Date Bhakti Rodgers MD [address] [place] [address] PCP - General Internal Medicine 07/02/20 documented as of this encounter
--- OUTSIDE RECORDS SUMMARY | 2024-06-16 14:54 | XMS_ITS | Encounter Summary ---
Author Organization [facility] Address [address] [place] [address] Care Team Providers Care Stud Dairy Cattle Farmer Name Role Phone Bhakti Rodgers MD Primary Care Provider [phone] Reason for Visit * Reason Onset Date Comments hospital follow up 09/30/2022 Encounter Details Date Type Department Care Team Description 09/30/2022 Telephone Adult Medicine [address] [phone] Bhakti Rodgers MD [address] [place] [address] [phone] hospital follow up Social History Tobacco Use Types Packs/Day Years [...] encounter Miscellaneous Notes * Telephone Encounter - Angeline Ryder - 10/01/2022 8:47 AM EDT Called and spoke with Joey on verbal, states pt was readmitted into [facility] hospital again for migraine and will call me back once she discharges to schedule f/u. * Telephone Encounter - Carey Sullivanpcion Mikael - 09/30/2022 10:03 AM EDT Hospital follow up appointment needed Hospital patient was treated at: [facility] Was this only an ER visit or was the patient admitted to the hospital? Admitted to hospital Date of visit if ER visit only: N/A If patient was admitted what was the date of discharge? 09/29/22 Reason/diagnosis for visit or stay: migraine When was the patient told to follow up? Was visit or stay related to an injury? NO If yes, what was the date of injury (DOI)? N/A If yes, was the injury due to N/A documented in this encounter Plan of Treatment Not on file documented as of this encounter Visit Diagnoses Not on filedocumented in this encounter Care Teams Stud Dairy Cattle Farmer Relationship Specialty Start Date End Date Bhakti Rodgers MD [address] [place] [address] PCP - General Internal Medicine 07/02/20 documented as of this encounter
--- OUTSIDE RECORDS SUMMARY | 2024-06-16 14:54 | XMS_ITS | Encounter Summary ---
Author Organization [facility] Address [address] [place] [address] Care Team Providers Care Color Dipper Name Role Phone Kizzy Archibald MD Primary Care Provider Bhakti Hickey MD Primary Care Provider [phone] Reason for Referral * Non MICHELLE (Routine) - Authorized/Booked Specialty Diagnoses / Procedures Referred By Carolyn marin Referred To Contact Gastroenterology Procedures REFERRAL TO GASTROENTEROLOGY Kizzy Archibald MD [address] [place] [address] [facility] [address] [place] [phone] Referral ID Status Reason Start Date Expiration Date V isits Requested Visits Authorized SCREEN [id number] Authorized/ Booked 03/23/2016 03/23/2017 1 1 Reason for Visit * Reason Onset Date Comments Beamer Operator Feedback 03/23/2016 gastroenterology Encounter Details Date Type Department Care Team Description 03/23/2016 Telephone Medicine/Pediatrics - [address] [phone] Kizzy Archibald MD Beamer Operator Feedback (gastroenterology) Social History Tobacco Use Types Packs/Day Years [...] Telephone Encounter - Kizzy Archibald MD - 03/23/2016 11:00 AM EST Referral signed * Telephone Encounter - Joey Connors - 03/23/2016 7:12 AM EST Request came in through my chart Please review this patients new referral request. The referral has been pended. Please complete thefollowing: If approved> sign order If denied>please give instructions and route to your practice nursing pool. Practice nurse should inform referrals and the patient if denied. documented in this encounter Plan of Treatment Not on file documented as of this encounter Visit Diagnoses Not on filedocumented in this encounter Care Teams Color Dipper Relationship Specialty Start Date End Date Kizzy Archibald MD PCP - General Internal Medicine 05/29/15 07/01/20 Bhakti Rodgers MD [address] [place] [address] PCP - General Internal Medicine 07/02/20 documented as of this encounter
--- OUTSIDE RECORDS SUMMARY | 2024-06-16 14:54 | XMS_ITS | Clinical Summary ---
Author Organization [facility] Address [address] [facility] [address] [place] [address] Phone Care Team Providers Care Audio Experience Expert Name Role Phone Bhakti Rodgers MD Primary Care Provider [phone] Allergies Active Allergy Reactions Criticality Noted Date Comments Azithromycin Other (see comments) 06/11/2015 Erythromycin 03/16/2022 Iodinated Contrast Media 02/26/2022 Metformin Diarrhea,Other (see comments) High 10/18/2018 Medications aspirin (ST DARON) 81 MG EC tablet Take 1 tablet by mouth 1 (one) time each day Active insulin glargine (Basaglar KwikPen) 100 UNIT/ML injection Active Insulin Lispro, 1 Unit Dial, 100 UNIT/ML solution pen-injector Active levothyroxine (SYNTHROID, LEVOTHROID) 125 MCG tablet Take 1 tablet by mouth 1 (one) time each day Active primidone (MYSOLINE) 50 MG tablet Take 1 tablet by mouth 2 (two) times a day Active simvastatin (ZOCOR) 20 MG tablet Take 1 tablet by mouth 1 (one) time each day Active gabapentin (NEURONTIN) 100 MG capsule Take 100 mg by mouth in the morning and 100 mg in the evening and 100 mg before bedtime. Active lisinopril 5 MG tablet Take 5 mg by mouth 1 (one) time each day Active Melatonin-Pyrid oxine (MELATIN PO) Take by mouth Active pantoprazole (PROTONIX) 40 MG EC tablet Take 40 mg by mouth 1 (one) time each day before breakfast Do not crush, chew, or split. Active risperiDONE (RisperDAL) 0.5 MG tablet Take 0.5 mg by mouth in the morning and 0.5 mg in the evening. Active senna (SENOKOT) 8.6 MG tablet Take 1 tablet by mouth 1 (one) time each day Active topiramate (TOPAMAX) 25 MG tablet Take 25 mg by mouth in the morning and 25 mg in the evening. Active Ubrogepant 100 MG tablet Take by mouth Active Active Problems Problem Noted Date Diagnosed Date Other hallucination 07/28/2022 Other toxic encephalopathy 07/28/2022 Recurrent major depressive disorder 07/28/2022 Obstructive sleep apnea syndrome 04/13/2022 Multiple nodules of lung 09/13/2020 Chronic kidney disease stage 3 due to type 2 diabetes mellitus 09/04/2020 Hypertension 09/04/2020 Hypertensive renal disease 09/04/2020 Morbid obesity 11/06/2015 Resolved Problems Problem Noted Date Diagnosed Date Resolved Date Depressive disorder 09/04/2020 09/05/19 21 Hypercholesterolemia 09/04/2020 021 Hypothyroidism 09/04/2020 09/04/2020 Osteoarthritis of left knee joint 09/04/2020 09/04/2020 Hemiplegic migraine 07/24/2020 09/05/19 Overview (09/04/2020): 2018 and 06/30 episodes Type 2 diabetes mellitus 09/28/2019 Phyllodes tumor of breast 05/26/2019 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 11/06/2015 09/04/2020 Inflammatory dermatosis 07/22/201508/09 Immunizations Name Administration Dates Next Due Influenza Split High Dose Pr eservative Free IM 02/26/2021,03/16/2020,03/22/2019,01/19 Influenza TIV (IM) 03/10/2016,04/24/2015 Influenza, MDCK, Quadrivalen t, with preservative 04/08/2017 Pfizer SARS-COV-2 09/14/2020,08/21/2020 Pneumococcal Conjugate 13-Valent 10/15/2017 Pneumococcal Polysaccharide 06/29/2022, 6,06/05/2015 Shingrix 10/02/2020,09/14/2020,08/03/2020 Zoster 01/28/2016 Family History Medical History Relation Comments Cancer Mother Lung CA Diabetes Mother Relation Status Comments Father Mother Social History Tobacco Use Types Packs/Day Years Used Date Smoking Tobacco: Never Smokeless Tobacco: Never Tobacco Cessation:Counseling Given: Not Answered Alcohol Use Standard Drinks/Week Comments No 0 (1 standard drink = 0.6 oz pur e alcohol) Comments Unknown Sex and Gender Information Value Date Recorded Sex Assigned at Not on file Legal Sex Female 4:51 PM EST Gender Identity Not on file Sexual Orientation Not on file Last Filed Vital Signs Vital Sign Reading Time Taken Comments Blood Pressure 104/60 08/13/2022 1:54 PM EDT Pulse 83 08/13/2022 1:54 PM EDT Temperature - - Respiratory Rate - - Oxygen Saturation 98% 08/13/2022 1:54 PM EDT Inhaled Oxygen Concentration - - Weight 114 kg (251 lb 9.6 oz) 08/13/2022 1:54 PM EDT Height 162.6 cm (5' 4 ) 08/13/2022 1:54 PM EDT Body Mass Index 43.19 08/13/2022 1:54 PM EDT Plan of Treatment Health Maintenance Due Date Last Done Comments Breast Cancer Screening 1950 Colorectal Cancer Screening: Annual FOBT 2001 Colorectal Cancer Screening: Colonoscopy 2001 Colorectal Cancer Screening: Sigmoidoscopy 2001 Diabetes: Ophthalmology Exam 06/07/2020 Diabetes: Pedal Pulse Checked 06/07/2020 Diabetes: Sensory Foot Exam 06/07/2020 Diabetes: Visual Foot Exam 06/07/2020 Diabetes: Hemoglobin A1C 08/06/2022 022, 12/22/2021, 09/15/2021, Additional history exists Influenza Vaccine (#1) 2024 , 02/26/2021, 03/16/2020, Additional history exists Pneumococcal Vaccine: 65+ Years Completed 06/29/2022, 06/29/2022, 10/15/2017, Additional history exists Hepatitis B Vaccine Aged Out No longe r eligible based on patient's age to complete this topic Procedures Procedure Name Priority Date/Time Associated Diagnosis Comments BLOOD PANEL (HC) Routine 01/16/2020 12:0 0 AM EDT from Last 3 Months or Most Recently Relevant to Health Maintenance Results * (ABNORMAL) Blood Panel (01/16/2020 12:00 AM EDT) LDL,Direct 93 <130 mg/dl [facility] Cholesterol 170 <200 mg/dl [facility] Triglycerides 192(H) <150 mg/dl [facility] HDL 39(L) >40 mg/dl [facility] Hemoglobin A1C 7.2(H) <5 % [facility] 01/16/2020 us [facility] [id number] LICITED RESULTS Final Result [facility] from Last 3 Months or Most Recently Relevant to Health Maintenance Insurance [facility] Care Teams Audio Experience Expert Relationship Specialty Start Date End Date Bhakti Rodgers MD PCP - General Internal Medicine 09/09/20
--- OUTSIDE RECORDS SUMMARY | 2024-06-16 14:54 | XMS_ITS | Encounter Summary ---
Author Organization [facility] Address [address] [place] [address] Care Team Providers Care Electronic Service Technician Name Role Phone Bhakti Rodgers MD Primary Care Provider [phone] Reason for Visit * Reason Onset Date Comments medication problems 06/14/2023 Encounter Details Date Type Department Care Team Description 06/14/2023 Telephone Endocrinology - [address] [address] Caitlin Nash PA-C [address] [place] [address] medication problems Social History Tobacco Use Types Packs/Day Years [...] encounter Miscellaneous Notes * Telephone Encounter - Issac Kasper - 06/23/2023 9:30 AM EST Patient is states insurance is looking for a response to auth request for Orestesro * Telephone Encounter - Caitlin Nash PA-C - 06/14/2023 10:00 AM EST Patient needs to check her insurance for alternative * Telephone Encounter - Ericka Camara Elías - 06/14/2023 9:46 AM EST Who is calling? The patient Name of the medication Solostar & Mounjaro What is the specific problem or interaction? Per patient insurance will not cover medications. [facility]. If the patient is having a problem with taking the med - how long has the problem been going on? N/A documented in this encounter Plan of Treatment Not on file documented as of this encounter Visit Diagnoses Not on filedocumented in this encounter Care Teams Electronic Service Technician Relationship Specialty Start Date End Date Bhakti Rodgers MD [address] [place] [address] PCP - General Internal Medicine 07/02/20 documented as of this encounter
--- OUTSIDE RECORDS SUMMARY | 2024-06-16 14:54 | XMS_ITS | Encounter Summary ---
Author Organization [facility] Address [address] [place] [address] Care Team Providers Care Crm System Administrator Name Role Phone Bhakti Rodgers MD Primary Care Provider [phone] Reason for Visit * Reason Onset Date Comments Vna- Intake 08/09/2023 hospital follow up 08/09/2023 Encounter Details Date Type Department Care Team Description 08/09/2023 Telephone Adult Medicine [facility] [address] [place] [address] Bhakti Rodgers MD [address] [place] [address] Vna- Intake; hospital follow up Social History Tobacco Use [...] Miscellaneous Notes * Telephone Encounter - Ole Camara.P.N. - 09/06/2023 1:36 PM EDT VO given to Cassie * Telephone Encounter - Bhakti Rodgers MD - 09/06/2023 1:25 PM EDT Ok for VO; needs to keep 5 appt for signed orders * Telephone Encounter - Ole LaPMaribellNMaribell - 09/06/2023 1:16 PM EDT [facility] booked for 09/17/23 Requesting VO PT and Nursing Please review and advise * Telephone Encounter - Carmela Cash - 09/06/2023 12:43 PM EDT Patient's spouse returned my call promptly - states that Charissa was at [facility] beginning 08/04/23 and then was moved to [facility]. He does not have date when she was discharged from [facility] to [facility].. She is due to be discharged from [facility] on 09/10/23. I booked TCM appointment for 09/17/23 at 10:30am with Dr. Rodgers. * Telephone Encounter - Carmela Cash - 09/06/2023 12:35 PM EDT Received voicemail from patient's spouse, Joey (on VR), while I was at lunch notifying me that patient has been discharged from the hospital and needs to be scheduled for hospital follow up. I called Chris back at [phone] and left a voicemail for him to call me back directly to schedule hospital follow up appointment. * Telephone Encounter - Carmela Cash - 08/18/2023 10:21 AM EDT Received voicemail from patient's spouse, Joey, yesterday evening 08/17/23. Per spouse, patient is still currently at [facility] and he has no date of discharge as of yet. * Telephone Encounter - Carmela Cash - 08/11/2023 12:38 PM EDT Call # 2: left message asking patient to call me back directly to schedule hospital follow up appointment. ?? If patient calls the main line, please forward call to my extension [phone]. * Telephone Encounter - Carmela Cash - 08/10/2023 10:32 AM EDT Called and left message asking patient to call me back directly to schedule hospital follow up appointment. If patient calls the main line, please forward call to my extension [phone]. * Telephone Encounter - Katya Jaquez LPN - 08/09/2023 10:49 AM EDT VO given to Cornelia, also notified, pt needs to be seen for signed orders, she stated she would let thept know. * Telephone Encounter - Bhakti Rodgers MD - 08/09/2023 10:19 AM EDT Ok for verbal orders; needs to be seen for signed orders; please schedule * Telephone Encounter - Devi Luther R.N. - 08/09/2023 10:14 AM EDT Left vm for pt to return my call. * Telephone Encounter - Katya Jaquez LPN - 08/09/2023 9:59 AM EDT [facility]NA looking for VO for nursing/PT Pt discharged from [facility] d/t encephalopathy. Will need TCM appt. * Telephone Encounter - Miladydeepak [place] - 08/09/2023 9:18 AM EDT [facility]NA CALL Which [facility] office is calling? [facility] Full name of caller: laynie The caller is intake coordinator Is the caller at the patients home?: NO Reason for call: Laynie is requesting Verbal Orders to evaluate for Nursing and Physical Thearpy Does caller need an urgent call back? NO Was CONTACT Telephone # obtained above?: [phone] option 2 Fax #: documented in this encounter Plan of Treatment Not on file documented as of this encounter Visit Diagnoses Not on filedocumented in this encounter Care Teams Crm System Administrator Relationship Specialty Start Date End Date Bhakti Rodgers MD [address] [place] [address] PCP - General Internal Medicine 07/02/20 documented as of this encounter
--- OUTSIDE RECORDS SUMMARY | 2024-06-16 14:54 | XMS_ITS | Encounter Summary ---
Author Organization [facility] Address [address] [place] [address] Care Team Providers Care Conventional Underwriter Name Role Phone Kizzy Archibald MD Primary Care Provider Bhakti Hickey MD Primary Care Provider [phone] Encounter Details Date Type Department Care Team Description 06/14/2019 Orders Only Medical Records [address] [place] [address] Josiah Cooney MD [address] [place] [address] [phone] Social History Tobacco Use Types Packs/Day Years [...] Name Priority Date/Time Associated Diagnosis Comments OUTSIDE PATHOLOGY Routine 06/09/2019 documented in this encounter Results * OUTSIDE PATHOLOGY (06/09/2019) Josiah Cooney MD OUTSIDE LAB documented in this encounter Visit Diagnoses Not on filedocumented in this encounter Care Teams Conventional Underwriter Relationship Specialty Start Date End Date Kizzy Archibald MD PCP - General Internal Medicine 05/29/15 07/01/20 Bhakti Rodgers MD [address] [place] [address] PCP - General Internal Medicine 07/02/20 documented as of this encounter
--- OUTSIDE RECORDS SUMMARY | 2024-06-16 14:54 | XMS_ITS ---
Author Organization [facility] on Address Unknown Allergies, Adverse Reactions, Alerts Substance Reaction Status Noted Date Resolved Date metFORMIN active 07/28/2022 Erythromycin active 07/28/2022 Azithromycin active 07/28/2022 Problems Problem Status Start Date End Date OTHER TOXIC ENCEPHALOPATHY (Primary) (G92.8 - ICD-10-C M) ACTIVE 07/28/2022 HEMIPLEGIC MIGRAINE, NOT INT RACTABLE, WITHOUT STATUS MIGRAINOSUS (G43.409 - ICD-10-CM) ACTIVE 07/28/2022 TYPE 2 DIABETES MELLITUS WIT HOUT COMPLICATIONS (E11.9 - ICD-10-CM) ACTIVE 07/28/2022 MAJOR DEPRESSIVE DISORDER, R ECURRENT, UNSPECIFIED (F33.9 - ICD-10-CM) ACTIVE 07/28/2022 ESSENTIAL (PRIMARY) HYPERTENSION (I10 - ICD-10-CM) ACT [place] 07/28/2022 HYPERLIPIDEMIA, UNSPECIFIED (E78.5 - ICD-10-CM) ACTIVE 07/28/2022 OTHER HALLUCINATIONS (R44.2 - ICD-10-CM) ACTIVE 07/28/2022 MORBID (SEVERE) OBESITY DUE TO EXCESS CALORIES (E66.01 - ICD-10-CM) ACTIVE 07/28/2022 CHRONIC KIDNEY DISEASE, STAG E 3 UNSPECIFIED (N18.30 - ICD-10-CM) ACTIVE 07/28/2022 Encounters Encounter Performer Performer Role Encounter Diagnoses Location Date Discharge - Discharged to home or self care - Alivia WILLS - Private home/apt. with home health services [facility] 07/28/2022 04:12 pm EDT - 08/05/2022 10:26 am EDT Immunizations Vaccine Date Influenza 02/07/2022 12:00 am EDT Zostavax(Shingles) 01/28/2016 12:00 am EDT Pneumococcal Conjugate Vaccine (PCV13) 0 10/15/2017 12:00 am EDT Pneumococcal Polysaccharide Vaccine (PPS V23) 06/29/2022 12:00 am EST Pneumococcal Polysaccharide Vaccine (PPS V23) 12/19/2015 12:00 am EDT Pneumococcal Polysaccharide Vaccine (PPS V23) 06/05/2015 12:00 am EST TDAP( Tetanus/Diptheria/Perutssis) 06/29 12:00 am EST SARS-COV-2 (COVID-19) 09/14/2020 12:00 a m EDT SARS-COV-2 (COVID-19) 08/21/2020 12:00 a m EDT Shingrix 10/02/2020 12:00 am EDT Social History
--- OUTSIDE RECORDS SUMMARY | 2024-06-16 14:54 | XMS_ITS | Encounter Summary ---
Author Organization [facility] Address [address] [place] [address] Care Team Providers Care Technology Resource Teacher Name Role Phone Bhakti Rodgers MD Primary Care Provider [phone] Reason for Visit * Reason Onset Date Comments Faxed Order 05/19/2023 [facility] - [id number], [id number], [id number], [id number] Encounter Details Date Type Department Care Team Description 05/19/2023 Telephone Adult Medicine [place] [phone] Bhakti Rodgers MD [address] [place] [address] Faxed Order ([facility] - [id number], [id number], [id number], [id number]) Social History Tobacco Use Types Packs/Day Years [...] on filedocumented in this encounter Care Teams Technology Resource Teacher Relationship Specialty Start Date End Date Bhakti Rodgers MD [address] [place] [address] PCP - General Internal Medicine 07/02/20 documented as of this encounter
--- OUTSIDE RECORDS SUMMARY | 2024-06-16 14:54 | XMS_ITS | Encounter Summary ---
Author Organization [facility] Address [address] [place] [address] Care Team Providers Care Mink Farmer Name Role Phone Kizzy Archibald MD Primary Care Provider Bhakti Hickey MD Primary Care Provider Reason for Visit * Reason Onset Date Comments Provider Call Back 03/18/2020 Encounter Details Date Type Department Care Team Description 03/18/2020 Refill Endocrinology [address] [address] Ramone Barajas MD Provider Call Back Social History Tobacco Use Types Packs/Day Years [...] encounter Miscellaneous Notes * Telephone Encounter - Maryann Porter M.A. - 03/18/2020 5:31 PM EST telehealth 01/18/20 please ADD FREQUENCY to the script Lab Results Component Value Date HGBA1C 7.2 01/16/2020 MALBUR 11.6 09/26/2019 MALBCR 7.3 09/26/2019 CHOL 170 01/16/2020 LDL 93 01/16/2020 HDL 39 01/16/2020 TRIG 192 01/16/2020 GLU 125 09/26/2019 CREAT 1.42 09/26/2019 * Telephone Encounter - Alejo Dubois - 03/18/2020 3:28 PM EST All of the medications requested were on the CURRENT MEDS list Did you check the Pharmacy information above?: YES Patient wants: 30 -day supply Is this a mail order prescription request ? NO If the refill is from a FAXED refill request what is the RX # listed on the fax? N/A Patients current insurance carrier is: Payor: [facility] FFS / Plan: [place] MEDICARE PLUS $15 [place] / Product Type: MEDICARE [id number] documented in this encounter Plan of Treatment Not on file documented as of this encounter Visit Diagnoses Not on filedocumented in this encounter Care Teams Mink Farmer Relationship Specialty Start Date End Date Kizzy Archibald MD PCP - General Internal Medicine 05/29/15 07/01/20 Bhakti Rodgers MD [address] [place] [address] PCP - General Internal Medicine 07/02/20 documented as of this encounter
--- OUTSIDE RECORDS SUMMARY | 2024-06-16 14:54 | XMS_ITS | Encounter Summary ---
Author Organization [facility] Address [address] [place] [address] Care Team Providers Care Diesel Engine Pipe Fitter Name Role Phone Bhakti Rodgers MD Primary Care Provider [phone] Reason for Visit * Reason Onset Date Comments REFERRAL 07/25/2020 homecare Encounter Details Date Type Department Care Team Description 07/25/2020 Telephone Adult Medicine [address] [phone] Bhakti Rodgers MD [address] [place] [address] [phone] REFERRAL (homecare) Social History Tobacco Use Types Packs/Day Years Used Date Smoking Tobacco: Never Smokeless Tobacco: Never Alcohol Use Standard Drinks/Week Comments No 0 (1 standard drink = 0.6 oz pur e alcohol) Sex Assigned at Date Recorded Female 08/20/2020 12:54 AM EDT Job Start Date Occupation Industry Not on file Not on file Not on file COVID-19 Exposure Response Date Recorded In the last month, have you been in contact with someone who was confirmed or suspected to have Coronavirus / COVID-19? No / Unsure 07/24/2020 10:12 AM EDT documented as of this encounter Miscellaneous Notes * Telephone Encounter - Ole Harley L.P.N. - 07/31/2020 11:11 AM EDT Spoke with Fidelia from [facility] they accepted the referral Telephone Information: Work Phone Not on file. Mobile Not on file. Wiley aware [facility] will be coming out to see her they will call first Received referral for Nursing for patient from Dr Rodgers . Called [facility] P [phone] Home [facility]'s Intake staff, all information regarding thepatient was given. Last pertinent office visit, Snapshot, Patient Inquiry sheet, Face to face, order for referral werefaxed to the home care agency. Pt / family were notified that they will be hearing from the Agency. This message routed to the [facility] Referrals Staff at p [phone] * Telephone Encounter - Handy Cricket L.P.N. - 07/31/2020 9:37 AM EDT Called [facility] for up date if accepting referral left message * Telephone Encounter - Handy Cricket L.P.N. - 07/25/2020 9:04 AM EDT Called [facility] [phone] faxed referral att Fidelia They will review the case and get back to me if they are accepting this case documented in this encounter Plan of Treatment Not on file documented as of this encounter Visit Diagnoses Not on filedocumented in this encounter Care Teams Diesel Engine Pipe Fitter Relationship Specialty Start Date End Date Bhakti Rodgers MD [address] [place] [address] PCP - General Internal Medicine 07/02/20 documented as of this encounter
--- OUTSIDE RECORDS SUMMARY | 2024-06-16 14:54 | XMS_ITS | Encounter Summary ---
Author Organization [facility] Address [address] [place] [address] Care Team Providers Care Sports Physician Name Role Phone Bhakti Rodgers MD Primary Care Provider [phone] Encounter Details Date Type Department Care Team Description 01/28/2022 Hospital Medical Records [address] [place] [address] Angeline Corcoran PA-C Social History Tobacco Use Types Packs/Day [...] on filedocumented in this encounter Care Teams Sports Physician Relationship Specialty Start Date End Date Bhakti Rodgers MD [address] [place] [address] [phone] PCP - General Internal Medicine 07/02/20 documented as of this encounter
--- OUTSIDE RECORDS SUMMARY | 2024-06-16 14:54 | XMS_ITS | Encounter Summary ---
Author Organization [facility] Address [address] [place] [address] Care Team Providers Care Pole Classifier Name Role Phone Kizzy Archibald MD Primary Care Provider Jonathan Bhakti Smith MD Primary Care Provider [phone] Encounter Details Date Type Department Care Team Description 10/31/[address] Clerk Report Medical Records [address] [place], [place] [phone] [place] [address] Social History Tobacco Use Types Packs/Day Years [...] on filedocumented in this encounter Care Teams Pole Classifier Relationship Specialty Start Date End Date Kizzy Archibald MD PCP - General Internal Medicine 05/29/15 07/01/20 Bhakti Rodgers MD [address] [place] [address] PCP - General Internal Medicine 07/02/20 documented as of this encounter
--- OUTSIDE RECORDS SUMMARY | 2024-06-16 14:54 | XMS_ITS | Encounter Summary ---
Author Organization [facility] Address [address] [place] [address] Care Team Providers Care Vice President Of Consulting Services Name Role Phone Kizzy Archibald MD Primary Care Provider Bhakti Hickey MD Primary Care Provider [phone] Encounter Details Date Type Department Care Team Description 03/21/2016 [facility] [address] [place] [address] [phone] Md Ursula Social History Tobacco Use Types Packs/Day Years [...] on filedocumented in this encounter Care Teams Vice President Of Consulting Services Relationship Specialty Start Date End Date Kizzy Archibald MD PCP - General Internal Medicine 05/29/15 07/01/20 Bhakti Rodgers MD [address] [place] [address] PCP - General Internal Medicine 07/02/20 documented as of this encounter
--- OUTSIDE RECORDS SUMMARY | 2024-06-16 14:54 | XMS_ITS | Encounter Summary ---
Author Organization [facility] Address [address] [place] [address] Care Team Providers Care Manager Learning Name Role Phone Bhakti Rodgers MD Primary Care Provider [phone] Encounter Details Date Type Department Care Team Description 07/08/2020 Hospital Medical Records [address] [place] [address] Aleyda Sheridan MD Social History Tobacco Use Types Packs/Day [...] have Coronavirus / COVID-19? No / Unsure 07/03/2020 9:34 AM EST documented as of this encounter Plan of Treatment Not on file documented as of this encounter Visit Diagnoses Not on filedocumented in this encounter Care Teams Manager Learning Relationship Specialty Start Date End Date Bhakti Rodgers MD [address] [place] [address] PCP - General Internal Medicine 07/02/20 documented as of this encounter
--- OUTSIDE RECORDS SUMMARY | 2024-06-16 14:54 | XMS_ITS | Encounter Summary ---
Author Organization [facility] Address [address] [place] [address] Care Team Providers Care Newspaper Journalist Name Role Phone Bhakti Rodgers MD Primary Care Provider [phone] Reason for Visit * Reason Onset Date Comments Vna- Intake 05/14/2023 Encounter Details Date Type Department Care Team Description 05/14/2023 Telephone Adult Medicine [facility] [address] [place] [address] Bhakti Rodgers MD [address] [place] [address] [phone] Vna- Intake Social History Tobacco Use Types Packs/Day Years [...] encounter Miscellaneous Notes * Telephone Encounter - Carmela Cash - 05/18/2023 12:10 PM EST Called and spoke with patient. Booked hospital follow up 05/26/23 at 10:30am with Dr Rodgers. * Telephone Encounter - Ole Harley L.P.N. - 05/14/2023 11:44 AM EST VO given to Trixie * Telephone Encounter - Bhakti Rodgers MD - 05/14/2023 11:39 AM EST Ok for VO but needs to be seen for signed orders * Telephone Encounter - Ole Camara.P.N. - 05/14/2023 11:21 AM EST VNA requesting V O for nursing PT and OT Please review and advise Please send response to the VNA pool P [phone] Thank you Was in [facility] transferred to [facility] (formally [facility] ) Needs a hospital follow up * Telephone Encounter - Brandyn Garibay - 05/14/2023 11:15 AM EST VNA CALL Which [facility]NA office is calling? [facility] Full name of caller: Layine The caller is VNA-Intake Is the caller at the patients home?: NO Reason for call: Layine is calling to request Verbal Orders to evaluate for PT , OT , and Nursing . Does caller need an urgent call back? NO Was CONTACT Telephone # obtained above?: YES [phone] option 2 Fax #: documented in this encounter Plan of Treatment Not on file documented as of this encounter Visit Diagnoses Not on filedocumented in this encounter Care Teams Newspaper Journalist Relationship Specialty Start Date End Date Bhakti Rodgers MD [address] [place] [phone] PCP - General Internal Medicine 07/02/20 documented as of this encounter
--- OUTSIDE RECORDS SUMMARY | 2024-06-16 14:54 | XMS_ITS | Encounter Summary ---
Author Organization [facility] Address [address] [place] [address] Care Team Providers Care Gore Maker Name Role Phone Bhakti Rodgers MD Primary Care Provider [phone] Encounter Details Date Type Department Care Team Description 05/28/2023 Orders Only Medical Records [address] [place] [address] Allen Baeza MD Social History Tobacco Use Types Packs/Day [...] Associated Diagnosis Comments OUTSIDE VASCULAR STUDY Routine 05/02/2023 OUTSIDE MRI/MRA Routine 04/28/[address] Routine 04/28/2023 documented in this encounter Results * OUTSIDE VASCULAR STUDY (05/02/2023) Allen Baeza MD CARDIOLOGY * OUTSIDE CT (04/28/2023) [facility] RADIOLOGY * OUTSIDE MRI/MRA (04/28/2023) Maninder Rojo PA-C RADIOLOGY documented in this encounter Visit Diagnoses Not on filedocumented in this encounter Care Teams Gore Maker Relationship Specialty Start Date End Date Bhakti Rodgers MD [address] [place] [address] PCP - General Internal Medicine 07/02/20 documented as of this encounter
--- OUTSIDE RECORDS SUMMARY | 2024-06-16 14:54 | XMS_ITS | Encounter Summary ---
Author Organization [facility] Address [address] [place] [address] Care Team Providers Care Public Health Doctor Name Role Phone Bhakti Rodgers MD Primary Care Provider [phone] Encounter Details Date Type Department Care Team Description 12/20/2022 Refill Endocrinology - [address] [phone] Caitlin Nash PA-C [address] [place] [address] Social History Tobacco Use Types Packs/Day Years [...] documented as of this encounter Visit Diagnoses Diagnosis Type 2 diabetes mellitus with stage 3 chronic kidney disease, with long-term current use of insulin, unspecified whether stage 3a or 3b CKD (HCC) documented in this encounter Care Teams Public Health Doctor Relationship Specialty Start Date End Date Bhakti Rogders MD [address] [place] [address] [phone] PCP - General Internal Medicine 07/02/20 documented as of this encounter
--- OUTSIDE RECORDS SUMMARY | 2024-06-16 14:54 | XMS_ITS | Encounter Summary ---
Author Organization [facility] Address [address] [place] [address] Care Team Providers Care Property Investor Name Role Phone Bhakti Rodgers MD Primary Care Provider [phone] Encounter Details Date Type Department Care Team Description 09/30/2022 Hospital Medical Records [address] [place] [address] [employer] Social History Tobacco Use Types Packs/Day Years [...] on filedocumented in this encounter Care Teams Property Investor Relationship Specialty Start Date End Date Bhakti Rodgers MD [address] [place] [address] [phone] PCP - General Internal Medicine 07/02/20 documented as of this encounter
--- OUTSIDE RECORDS SUMMARY | 2024-06-16 14:54 | XMS_ITS | Encounter Summary ---
Author Organization [facility] Address [address] [place] [address] Care Team Providers Care Clinical Academic Allergist Name Role Phone Bhakti Rodgers MD Primary Care Provider [phone] Encounter Details Date Type Department Care Team Description 08/06/2023 Orders Only Medical Records [address] [place] [address] Cruzito oMran PA-C Social History Tobacco Use Types Packs/Day [...] Date/Time Associated Diagnosis Comments OUTSIDE CT Routine 08/04/2023 documented in this encounter Results * OUTSIDE CT (08/04/2023) Cruzito Moran PA-C RADIOLOGY documented in this encounter Visit Diagnoses Not on filedocumented in this encounter Care Teams Clinical Academic Allergist Relationship Specialty Start Date End Date Bhakti Rodgers MD [address] [place] [address] [id number] PCP - General Internal Medicine 07/02/20 documented as of this encounter
--- OUTSIDE RECORDS SUMMARY | 2024-06-16 14:54 | XMS_ITS | Encounter Summary ---
Author Organization [facility] Address [address] [place] [address] Care Team Providers Care Artificial Teeth Inspector Name Role Phone Bhakti Rodgers MD Primary Care Provider Reason for Visit * Reason Onset Date Comments VNA Call 09/30/2022 Encounter Details Date Type Department Care Team Description 09/30/2022 Telephone Adult Medicine [address] [address] Bhakti Rodgers MD [address] [place] [address] [phone] VNA Call Social History Tobacco Use Types [...] In the last 10 days, have yo hamilton been in contact with someone who was confirmed or suspected to have Coronavirus/COVID-19? No / Unsure 09/15/2022 2:13 PM EDT documented as of this encounter Miscellaneous Notes * Telephone Encounter - Angeline Ryder - 10/01/2022 8:48 AM EDT Called and spoke with Joey on verbal, states pt was read[facility] for migraine and will call me back once she discharges to schedule f/u. * Telephone Encounter - Ole Camara.P.NMaribell - 09/30/2022 2:50 PM EDT Vo given to Trixie * Telephone Encounter - Bhakti Rodgers MD - 09/30/2022 2:48 PM EDT Ok for verbal orders; needs to be seen for signed orders; please schedule * Telephone Encounter - Ole Camara.P.N. - 09/30/2022 2:46 PM EDT VNA requesting VO for nursing Please review and advise supervisor lens generating Please book ahospital follow up appt Thank you * Telephone Encounter - Carey Youssef - 09/30/2022 2:13 PM EDT VNA CALL Which [facility]NA office is calling? [facility] Full name of caller: ferdinand The caller is A nurse Is the caller at the patients home?: NO Reason for call: ferdinand from [facility] is calling requesting verbal orders for alf. Does caller need an urgent call back? YES Was CONTACT Telephone # obtained above?: YES Fax #: documented in this encounter Plan of Treatment Not on file documented as of this encounter Visit Diagnoses Not on filedocumented in this encounter Care Teams Artificial Teeth Inspector Relationship Specialty Start Date End Date Bhakti Rodgers MD [address] [place] [address] PCP - General Internal Medicine 07/02/20 documented as of this encounter
--- OUTSIDE RECORDS SUMMARY | 2024-06-16 14:54 | XMS_ITS | Encounter Summary ---
Author Organization [facility] Address [address] [place] [address] Care Team Providers Care Melter Supervisor Name Role Phone Bhakti Rodgers MD Primary Care Provider [phone] Reason for Visit * Reason Onset Date Comments Prior Authorization 08/21/2022 Encounter Details Date Type Department Care Team Description 08/21/2022 Telephone Endocrinology - [address] [place] [address] Caitlin Nash PA-C [address] [place] [address] Prior Authorization Social History Tobacco Use Types [...] suspected to have Coronavirus/COVID-19? No / Unsure 08/17/2022 9:52 AM EDT documented as of this encounter Miscellaneous Notes * Telephone Encounter - Lupe Donovan M.A. - 08/25/2022 11:57 AM EDT AUTH APPROVED EXP 05/09/23 FAXED TO PHARM Lupe Donovan Prior Auth Dep Ext [id number] * Telephone Encounter - Lupe Donovan M.A. - 08/24/2022 1:51 PM EDT AUTH FAXED TO [facility] [email or web address] TRIED METFORMIN, TRULICITY, NOVOLOG, LANTUS, VICTOZA Lupe Donovan Prior Auth Dep Ext [id number] * Telephone Encounter - Issac Kasper - 08/21/2022 1:38 PM EDT 3Prior Authorization for Medication-do not complete and send this encounter unless you have the faxfrom the pharmacy. Is this a Cover My Meds request: Yes -- Martinez Code [id number] Name of Medication HumaLog KwikPen Dose of Medication 100 unit / ml What is the RX # from the faxed refill? N/a How does patient take this med? injection What Pharmacy did the fax come from: [facility] fax #: [phone] documented in this encounter Plan of Treatment Not on file documented as of this encounter Visit Diagnoses Not on filedocumented in this encounter Care Teams Melter Supervisor Relationship Specialty Start Date End Date Bhakti Rodgers MD [address] [place] [address] PCP - General Internal Medicine 07/02/20 documented as of this encounter
--- OUTSIDE RECORDS SUMMARY | 2024-06-16 14:54 | XMS_ITS | Encounter Summary ---
Author Organization [facility] Address [address] [place] [address] Care Team Providers Care Wood Furniture Assembler Name Role Phone Kizzy Archibald MD Primary Care Provider Bhakti Hickey MD Primary Care Provider [phone] Encounter Details Date Type Department Care Team Description 12/25/2016 Transfer Records Medical Records [address] [place] [address] Abstract, Provider Social History Tobacco Use Types [...] on filedocumented in this encounter Care Teams Wood Furniture Assembler Relationship Specialty Start Date End Date Kizzy Archibald MD PCP - General Internal Medicine 05/29/15 07/01/20 Bhakti Rodgers MD [address] [place] [address] PCP - General Internal Medicine 07/02/20 documented as of this encounter
--- OUTSIDE RECORDS SUMMARY | 2024-06-16 14:54 | XMS_ITS | Encounter Summary ---
Author Organization [facility] Address [address] [place] [address] Care Team Providers Care Adjunct Faculty Mathematics Department Name Role Phone Bhakti Rodgers MD Primary Care Provider [phone] Encounter Details Date Type Department Care Team Description 10/06/2022 Hospital Medical Records [address] [place] [address] Aleyda Sheridan MD Social History Tobacco Use [...] on filedocumented in this encounter Care Teams Adjunct Faculty Mathematics Department Relationship Specialty Start Date End Date Bhakti Rodgers MD [address] [place] [address] [phone] PCP - General Internal Medicine 07/02/20 documented as of this encounter
--- OUTSIDE RECORDS SUMMARY | 2024-06-16 14:54 | XMS_ITS | Encounter Summary ---
Author Organization [facility] Address [address] [place] [address] Care Team Providers Care Reinsurance Claim Analyst Name Role Phone Bhakti Rodgers MD Primary Care Provider [phone] Encounter Details Date Type Department Care Team Description 07/16/2022 Hospital Medical Records [address] [place] [address] [facility] Social History Tobacco Use Types Packs/Day Years [...] Name Priority Date/Time Associated Diagnosis Comments OUTSIDE ECHO Routine 07/16/2022 documented in this encounter Results * OUTSIDE ECHO (07/16/2022) Provider Default CARDIOLOGY [facility] documented in this encounter Visit Diagnoses Not on filedocumented in this encounter Care Teams Reinsurance Claim Analyst Relationship Specialty Start Date End Date Bhakti Rodgers MD [address] [place], [place] [phone] PCP - General Internal Medicine 07/02/20 documented as of this encounter
--- OUTSIDE RECORDS SUMMARY | 2024-06-16 14:54 | XMS_ITS | Encounter Summary ---
Author Organization [facility] Address [address] [place] [address] Care Team Providers Care Facsimile Machine Operator Name Role Phone Kizzy Archibald MD Primary Care Provider Bhakti Hickey MD Primary Care Provider [phone] Encounter Details Date Type Department Care Team Description 09/10/2015 Accounts Payable Bookkeeper Report Medical Records [address] [place] [address] Hillary Glaser [address] [place] [address] Social History Tobacco Use Types Packs/Day Years [...] on filedocumented in this encounter Care Teams Facsimile Machine Operator Relationship Specialty Start Date End Date Kizzy Archibald MD PCP - General Internal Medicine 05/29/15 07/01/20 Bhakti Rodgers MD [address] [place] [address] PCP - General Internal Medicine 07/02/20 documented as of this encounter
--- OUTSIDE RECORDS SUMMARY | 2024-06-16 14:54 | XMS_ITS | Encounter Summary ---
Author Organization [facility] Address [address] [place] [address] Care Team Providers Care Sueding Machine Tender Name Role Phone Bhakti Rodgers MD Primary Care Provider [phone] Encounter Details Date Type Department Care Team Description 06/30/2022 Business Doc Medical Records [address] [place] [address] Abstract, Provider Social History Tobacco Use Types [...] on filedocumented in this encounter Care Teams Sueding Machine Tender Relationship Specialty Start Date End Date Bhakti Rodgers MD [address] [place], [place] [phone] PCP - General Internal Medicine 07/02/20 documented as of this encounter
--- OUTSIDE RECORDS SUMMARY | 2024-06-16 14:54 | XMS_ITS | Encounter Summary ---
Author Organization [facility] Address [address] [place] [address] Care Team Providers Care Woolen Suiting Shrinker Name Role Phone Bhakti Rodgers MD Primary Care Provider [phone] Encounter Details Date Type Department Care Team Description 02/10/2022 Hospital Medical Records [address] [place] [address] Jazmin Olivier Social History Tobacco Use Types Packs/Day Years [...] on filedocumented in this encounter Care Teams Woolen Suiting Shrinker Relationship Specialty Start Date End Date Bhakti Rodgers MD [address] [place] [address] PCP - General Internal Medicine 07/02/20 documented as of this encounter
--- OUTSIDE RECORDS SUMMARY | 2024-06-16 14:54 | XMS_ITS | Encounter Summary ---
Author Organization [facility] Address [address] [place] [address] Care Team Providers Care Head Turning Machine Operator Name Role Phone Bhakti Rodgers MD Primary Care Provider [phone] Encounter Details Date Type Department Care Team Description 02/03/2022 Hospital Medical Records [address] [place] [address] Joel Esquivel MD Social History Tobacco Use Types Packs/Day [...] on filedocumented in this encounter Care Teams Head Turning Machine Operator Relationship Specialty Start Date End Date Bhakti Rodgers MD [address] [place] [address] [phone] PCP - General Internal Medicine 07/02/20 documented as of this encounter
--- OUTSIDE RECORDS SUMMARY | 2024-06-16 14:54 | XMS_ITS | Encounter Summary ---
Author Organization [facility] Address [address] [place] [address] Care Team Providers Care Underwriter Solicitation Director Name Role Phone Bhakti Rodgers MD Primary Care Provider [phone] Encounter Details Date Type Department Care Team Description 02/19/2022 Home Health Certification Medical Records [address] [place] [address] Social History Tobacco Use Types Packs/Day Years [...] on filedocumented in this encounter Care Teams Underwriter Solicitation Director Relationship Specialty Start Date End Date Bhakti Rodgers MD [address] [place] [address] PCP - General Internal Medicine 07/02/20 documented as of this encounter
--- OUTSIDE RECORDS SUMMARY | 2024-06-16 14:54 | XMS_ITS | Encounter Summary ---
Author Organization [facility] Address [address] [place] [address] Care Team Providers Care Truck Driver Flatbed Name Role Phone Bhakti Rodgers MD Primary Care Provider [phone] Encounter Details Date Type Department Care Team Description 02/19/2022 Pt. Non Urgent Medical Question Adult Medicine [address] [phone] Bhakti Rodgers MD [address] [place] [address] Social History Tobacco Use Types Packs/Day Years [...] encounter Miscellaneous Notes * Telephone Encounter - Deepa Joe - 02/19/2022 9:18 AM EDTFrom: Charissa Kalebtomas To: Colt Rodgers Sent: 02/19/2022 9:15 AM EDT Subject: visiting nurse Good morning, there was an order put in for home physical therapy. Can you put in for a referral for a nurse to come in twice a day to give her meds and insulin. The times needed are for 8am and 12pm. We just need to make sure it is given. She is alone most of the day and sleeps a lot so she might not remember to check her sugar and take her Humalog. The physical therapy is through [facility] . thank you documented in this encounter Plan of Treatment Not on file documented as of this encounter Visit Diagnoses Not on filedocumented in this encounter Care Teams Truck Driver Flatbed Relationship Specialty Start Date End Date Bhakti Rodgers MD [address] [place] [address] PCP - General Internal Medicine 07/02/20 documented as of this encounter
--- OUTSIDE RECORDS SUMMARY | 2024-06-16 14:54 | XMS_ITS | Encounter Summary ---
Author Organization [facility] Address [address] [place] [address] Care Team Providers Care Floor Layer Name Role Phone Kizzy Archibald MD Primary Care Provider Bhakti Hickey MD Primary Care Provider [phone] Encounter Details Date Type Department Care Team Description 06/16/2017 Hospital Medical Records [address] [place] [address] Abstract, Provider Social History Tobacco Use Types [...] on filedocumented in this encounter Care Teams Floor Layer Relationship Specialty Start Date End Date Kizzy Archibald MD PCP - General Internal Medicine 05/29/15 07/01/20 Bhakti Rodgers MD [address] [place] [address] [phone] PCP - General Internal Medicine 07/02/20 documented as of this encounter
--- OUTSIDE RECORDS SUMMARY | 2024-06-16 14:54 | XMS_ITS | Encounter Summary ---
Author Organization [facility] Address [address] [place] [address] Care Team Providers Care Cardio Tech Name Role Phone Bhakti Rodgers MD Primary Care Provider [phone] Reason for Visit * Reason Onset Date Comments Provider Call Back 01/29/2022 Encounter Details Date Type Department Care Team Description 01/29/2022 Telephone Endocrinology - [address] [address] Caitlin Nash PA-C [address] [place] [address] Provider Call Back Social History Tobacco Use [...] encounter Miscellaneous Notes * Telephone Encounter - Charissa Almendarez - 01/29/2022 11:10 AM EDT Appointment scheduled for 02/11/22 at 2:00 with Caitlin Nash * Telephone Encounter - Caitlin Nash PA-C - 01/29/2022 10:22 AM EDT Patient needs to schedule follow up okay for video * Telephone Encounter - Charissa Gregory Tanesha - 01/29/2022 9:48 AM EDT Caller requesting call back from provider: Is the caller the patient? YES Reason for call back: Patient was in [facility] 01/22/22 and discharged 01/28/22. She was in the hospital for Hemiplegic migraine. She was on 78 units of Lantus in the hospital and they brought it down to 20 units. Caller offered to speak with the nurse for assistance: YES Response: Patient offered to speak with nurse for assistance and patient agreed. Message forwardedto nurse. documented in this encounter Plan of Treatment Not on file documented as of this encounter Visit Diagnoses Not on filedocumented in this encounter Care Teams Cardio Tech Relationship Specialty Start Date End Date Bhakti Rodgers MD [address] [place] [phone] PCP - General Internal Medicine 07/02/20 documented as of this encounter
--- OUTSIDE RECORDS SUMMARY | 2024-06-16 14:54 | XMS_ITS | Encounter Summary ---
Author Organization [facility] Address [address] [place] [address] Care Team Providers Care Trapper Animal Name Role Phone Kizzy Archibald MD Primary Care Provider Jonathan Bhakti Smith MD Primary Care Provider [phone] Encounter Details Date Type Department Care Team Description 11/09/2019 [facility] Medical Records [address] [place] [address] Social History Tobacco Use Types Packs/Day Years [...] on filedocumented in this encounter Care Teams Trapper Animal Relationship Specialty Start Date End Date Kizzy Archibald MD PCP - General Internal Medicine 05/29/15 07/01/20 Bhakti Rodgers MD [address] [place] [address] PCP - General Internal Medicine 07/02/20 documented as of this encounter
--- OUTSIDE RECORDS SUMMARY | 2024-06-16 14:54 | XMS_ITS | Encounter Summary ---
Author Organization [facility] Address [address] [place] [address] Care Team Providers Care Environmental Project Manager Name Role Phone Bhakti Rodgers MD Primary Care Provider [phone] Encounter Details Date Type Department Care Team Description 08/05/2023 Hospital Medical Records [address] [place] [address] Ariella Cooley Social History Tobacco Use Types [...] on filedocumented in this encounter Care Teams Environmental Project Manager Relationship Specialty Start Date End Date Bhakti Rodgers MD [address] [place] [address] [phone] PCP - General Internal Medicine 07/02/20 documented as of this encounter
--- OUTSIDE RECORDS SUMMARY | 2024-06-16 14:54 | XMS_ITS | Encounter Summary ---
Author Organization [facility] Address [address] [place] [address] Care Team Providers Care Tank Charger Name Role Phone Kizzy Archibald MD Primary Care Provider Bhakti Hickey MD Primary Care Provider [phone] Encounter Details Date Type Department Care Team Description 04/26/2020 Refill Endocrinology [address] [address] Caitlin Nash PA-C [address] [place] [address] Social History Tobacco Use Types Packs/Day Years [...] have Coronavirus / COVID-19? No / Unsure 04/17/2020 2:34 PM EST documented as of this encounter Plan of Treatment Not on file documented as of this encounter Visit Diagnoses Not on filedocumented in this encounter Care Teams Tank Charger Relationship Specialty Start Date End Date Kizzy Archibald MD PCP - General Internal Medicine 05/29/15 07/01/20 Bhakti Rodgers MD [address] [place] [address] PCP - General Internal Medicine 07/02/20 documented as of this encounter
--- OUTSIDE RECORDS SUMMARY | 2024-06-16 14:55 | XMS_ITS | Encounter Summary ---
Author Organization [facility] Address [address] [place] [address] Care Team Providers Care Sliver Chopper Name Role Phone Kizzy Archibald MD Primary Care Provider Jonathan Bhakti Smith MD Primary Care Provider Encounter Details Date Type Department Care Team Description 01/18/2019 Lab Assistant Report Medical Records [address] [place] [address] Germán Luevano MD Social History Tobacco Use Types Packs/Day [...] on filedocumented in this encounter Care Teams Sliver Chopper Relationship Specialty Start Date End Date Kizzy Archibald MD PCP - General Internal Medicine 05/29/15 07/01/20 Bhakti Rodgers MD [address] [place] [address] PCP - General Internal Medicine 07/02/20 documented as of this encounter
--- OUTSIDE RECORDS SUMMARY | 2024-06-16 14:55 | XMS_ITS | Encounter Summary ---
Author Organization [facility] Address [address] [place] [address] Care Team Providers Care Paint Tester Name Role Phone Kizzy Archibald MD Primary Care Provider Bhakti Hickey MD Primary Care Provider [phone] Encounter Details Date Type Department Care Team Description 04/21/2018 Release of Information Medical Records [address] [place] [address] Abstract, Provider Social History Tobacco Use Types [...] on filedocumented in this encounter Care Teams Paint Tester Relationship Specialty Start Date End Date Kizzy Archibald MD PCP - General Internal Medicine 05/29/15 07/01/20 Bhakti Rodgers MD [address] [place] [address] PCP - General Internal Medicine 07/02/20 documented as of this encounter
--- OUTSIDE RECORDS SUMMARY | 2024-06-16 14:55 | XMS_ITS | Clinical Summary ---
Author Organization [facility] Address [address] [place] [address] Care Team Providers Care Manager Of Merchandising Name Role Phone Bhakti Rodgers MD Primary Care Provider [phone] Allergies Active Allergy Reactions Criticality Noted Date Comments Azithromycin 09/12/2020 Metformin 09/12/2020 Medications Medication Sig Dispensed Refills Start Date End Date Status gabapentin (NEURONTIN) 300 MG capsule Take 1 capsule (300 mg total) by mouth 3 (three) times a day. 0 Active insulin glargine (LANTUS SOLOSTAR) injection 100 units/mL Inject 46 Units under the skin. 46units am, 46 units pm 0 Active Insulin Lispro, 1 Unit Dial, 100 UNIT/ML SOPN Inject under the skin. 0 Active levothyroxine (SYNTHROID) tablet 125 mcg Take 1 tablet (125 mcg total) by mouth every morning on an empty stomach. Wednesday am only takes 1/2 tablet 0 Active spironolactone-hydroc hlorothiazide (ALDACTAZIDE) 25-25 MG per tablet Take 1 tablet by mouth daily. 0 Active citalopram (CeleXA) 40 MG tablet Take 1 tablet (40 mg total) by mouth daily. 0 Active simvastatin (ZOCOR) tablet 20 mg Take 1 tablet (20 mg total) by mouth every night at bedtime. 0 Active buPROPion (WELLBUTRIN XL) 300 MG 24 hr tablet Take 1 tablet (300 mg total) by mouth daily. 0 Active primidone (MYSOLINE) 50 MG tablet Take 1 tablet (50 mg total) by mouth 4 (four) times a day. 0 Active SUMATRIPTAN SUCCINATE PO Take by mouth. 0 Active aspirin 81 MG chewable tablet Chew 1 tablet (81 mg total) by mouth daily. 0 Active ammonium lactate (AMLACTIN) 12 % cream Apply topically as needed for dry skin. 0 Active melatonin 3 MG TABS tablet Take by mouth every night at bedtime. 0 Active cloNIDine (CATAPRES) tablet 0.1 mg Take 1 tablet (0.1 mg total) by mouth 2 (two) times a day. 0 Active Fremanezumab-vfrm (AJOVY SC) Inject under the skin. 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 Social History Tobacco Use Types Packs/Day Years Used Date Smoking Tobacco: Never Smokeless Tobacco: Never Alcohol Use Standard Drinks/Week Comments Never 0 (1 standard drink = 0.6 oz pur e alcohol) Sex and Gender Information Value Date Recorded Sex Assigned at Not on file Gender Identity Not on file Sexual Orientation Not on file Job Start Date Occupation Industry Not on file Not on file Not on file Last Filed Vital Signs Vital Sign Reading Time Taken Comments Blood Pressure 130/52 11/10/2023 10:09 AM EDT Pulse 81 11/10/2023 10:09 AM EDT Temperature 36.8 ??C (98.2 ??F) 11/10/2023 10:09 AM E DT Respiratory Rate - - Oxygen Saturation 98% 11/10/2023 10:09 AM EDT Inhaled Oxygen Concentration - - Weight 106.6 kg (235 lb) 11/10/2023 10:09 AM EDT Height 162.6 cm (5' 4 ) 11/10/2023 10:09 AM EDT Body Mass Index 40.34 11/10/2023 10:09 AM EDT Plan of Treatment Health Maintenance Due Date Last Done Comments Hepatitis C Screening 1952 Depression Screening 1964 Preventative Health Evaluation 1970 Colon Cancer Screening (Colonoscopy) 1997 Breast Cancer Screening (Mammogram) 2002 RSV Adult > 60+ Yrs or (1 - Risk 60-74 years 1-dose series) 2012 Fall Risk Assessment 2017 Osteoporosis Screening (DEXA Scan) 2017 COVID-19 Vaccine (3 - Pfizer risk series) 10/12/2020 09/14/2020, 08/21/2020 DTap / Tdap / Td (1 - Tdap) 06/30/2022 06/29/2022 Influenza Vaccine (#1) 2024 3, 02/07/2022, 02/07/2022, Additional history exists Shingrix-Zoster Vaccine Completed 10/03/19, 09/14/2020, 08/03/2020 Pneumococcal Vaccine Completed 06/29/2022, 10/15/2017, 12/19/2015, Additional history exists Hepatitis B Vaccines Aged Out No long er eligible based on patient's age to complete this topic RSV Ped < 20 months Aged Out No longe r eligible based on patient's age to complete this topic Care Teams Manager Of Merchandising Relationship Specialty Start Date End Date Bhakti Rodgers MD PCP - General Internal Medicine 09/11/20
--- OUTSIDE RECORDS SUMMARY | 2024-06-16 14:55 | XMS_ITS | Encounter Summary ---
Author Organization [facility] Address [address] [place] [address] Care Team Providers Care Field Service Representative Name Role Phone Kizzy Archibald MD Primary Care Provider Bhakti Hickey MD Primary Care Provider Reason for Visit * Reason Onset Date Comments other 10/25/2018 [facility] Encounter Details Date Type Department Care Team Description 10/25/2018 Telephone Endocrinology - [address] [address] Ramone Barajas MD other ([facility]) Social History Tobacco Use Types Packs/Day Years [...] encounter Miscellaneous Notes * Telephone Encounter - Johnna MACK - 10/25/2018 9:[address] barajas's desk for completion * Telephone Encounter - Fidelina Ypi - 10/25/2018 8:25 AM EDT [facility] is looking for more information from Dr Barajas to fax to them at [phone] Form at nurses station documented in this encounter Plan of Treatment Not on file documented as of this encounter Visit Diagnoses Not on filedocumented in this encounter Care Teams Field Service Representative Relationship Specialty Start Date End Date Kizzy Archibald MD PCP - General Internal Medicine 05/29/15 07/01/20 Bhakti Rodgers MD [address] [place] [address] PCP - General Internal Medicine 07/02/20 documented as of this encounter
--- OUTSIDE RECORDS SUMMARY | 2024-06-16 14:55 | XMS_ITS | Encounter Summary ---
Author Organization [facility] [place] [address] Care Team Providers Care Title Curative Specialist Name Role Phone Bhakti Rodgers MD Primary Care Provider [phone] Reason for Visit * Reason Comments Follow-up Encounter Details Date Type Department Care Team (Late st Contact Info) Description 05/17/2024 9:15 AM EST Office Visit [facility] Hematology Oncology [address] [place] [address] Eddie De Leon MD [address] [place] [address] Phyllodes tumor of breast (Primary Dx); Pulmonary nodules Social History Tobacco Use Types Packs/Day Years [...] on file documented as of this encounter Last Filed Vital Signs Vital Sign Reading Time Taken Comments Blood Pressure 152/79 05/17/2024 9:13 AM EST Pulse 86 05/17/2024 9:13 AM EST Temperature 36.1 ??C (97 ??F) 05/17/2024 9:13 AM EST Respiratory Rate - - Oxygen Saturation 97% 05/17/2024 9:13 AM EST Inhaled Oxygen Concentration - - Weight 112 kg (246 lb) 05/17/2024 9:13 AM EST Height - - Body Mass Index 42.23 04/24/2024 9:52 AM EST documented in this encounter Progress Notes * Eddie De Leon MD - 05/17/2024 9:15 AM EST Diagnosis/treatment: #1 Pulmonary nodules. #2 Left-sided breast phyllodes tumor, diagnosed in 01/2019. The patient underwent a lumpectomy on 03/31/2018. She underwent a left mastectomy on 06/09/2019. Interval history: The patient is a 73-year-old female who underwent a screening mammogram on 01/23/2019 which revealeda large partially circumferential mass in the upper outer quadrant of the left breast. A left breast ultrasound on 01/23/2019 showed a 3.8 x 1.6 x 5.0 cm by lobar mass at 2:00, 5 cm in the nipple. Sheunderwent an ultrasound-guided core biopsy of the left breast mass on 02/03/2019 and the pathology revealed a fibroepithelial lesion with increased stromal cellularity, increased stromal mitoses, and focal atypia, suspicious for a phyllodes tumor. She underwent an excisional biopsy on 03/31/[address] Cooney and the pathology showed a 6.5 cm borderline grade 2 phyllodes tumor. There were focally infiltrative borders. There was moderate stromalatypia. There was moderate stromal cellularity. There was no stromal overgrowth. There were 7 mitoses per 10 high-powered field. The medial margin was 1 mm and the posterior margin was less than 1 mm. She underwent a left mastectomy on 06/09/[address] Cooney and the pathology revealed no residual tumor. 0 of 3 sampled axillary nodes were involved with tumor. She presented to [facility] on 07/06/2020 with left hemiplegia, which resolved quickly. The presentation was assessed as a complex migraine. A brain CT without contrast on 07/06/2020 was unremarkable. A head/neck CTA on 07/06/2020 was unremarkable. There was concern about an aspiration pneumoniaand she completed a course of empiric antibiotics. A follow-up chest x-ray on 08/08/2020 showed a rounded focal opacity in the left mid-lung. A chest CT without contrast on 09/06/2019 showed a 0.2 cm right middle lobe nodule, a 0.1 cm right lower lobe nodule, and a 0.1 cm right lower lobe nodule. There was mild posterior pleural thickening in the lower lobes with pleural calcification. A chest CT without contrast on 03/11/2021 showed stable pulmonary nodules. A chest CT without contrast on 10/13/2021 showed stable pulmonary nodules. She is compliant with self exams and reports no concerns. She is compliant with mammograms. A screening mammogram on 02/03/2021 showed concerning findings in the retroareolar region of the right breast. A diagnostic right mammogram on 02/11/2021 showed a heterogeneous cluster of microcalcifications in the retroareolar region of the right breast. She underwent a stereotactic core biopsy on 02/27/2021 and the pathology showed benign findings. A right mammogram on 04/17/2022 was read as benign. A right mammogram on 04/21/2023 was read as benign. The right mammogram on 04/24/2024 was read as benign. She presented to the [facility] on 01/22/2022 with loss of consciousness. She was hospitalized from 01/22/2022 to 01/28/2022. A brain CT without contrast on 01/22/2022 was unremarkable. A head/neck CTA on 01/22/2022 was unremarkable but degraded by motion artifact. A C/A/P CT without IV and without oral contrast 01/22/2022 showed no new findings but the chest CT was degraded by respiratory artifact. She underwent a lumbar puncture on 01/23/2022 which was nondiagnostic. She returned to baseline without therapeutic intervention. The diagnosis was not clear but a hemiplegic migraine was considered. She presented to [facility] on 02/03/2022 with a loss of consciousness. A brain CT without contraston 02/03/2022 was unremarkable. She returned to baseline without therapeutic intervention. Her diagnosis was again not clear. She presented to the [facility] on 06/22/2022 with dysarthria. A brain MRI without contrast on 06/22/2022 was unremarkable. A complex migraine was assessed. She presented to the [facility] 07/15/2022 with aphasia and left-sided weakness. A brain CTA and a neckCTA on 07/15/2022 were unremarkable. Again, complex migraine was assessed. She had 2 additional hospitalizations at [facility] for neurologic issues in the spring 2022. No new diagnosis was assessed. She is followed by Dr. Chavez, a neurologist. She developed intermittent left shoulder, left axillary, and upper left arm pain in early fall 2022, which have not progressed over the last interval.. She remains on gabapentin 300/300/600 for a pre-existing painful bilateral leg neuropathy. She takes additional doses of Tylenol and aspirin with transient relief. A chest CT with IV contrast on 04/27/2023 was unremarkable. A neck CT with IV contrast on 04/27/2023 was unremarkable. A brain MRI with contrast on 07/28/2023 unremarkable. She reports an intact appetite. She lost weight from 260 pounds on 05/12/2023 down to 235 pounds on 11/10/2023. She regained weight over the last interval. She denies unusual headaches or visual changes. She denies cough, hemoptysis, or dyspnea on exertion. She denies nausea or abdominal pain. She denies unusual bone pain. Past medical history: Diabetes, migraine headaches, chronic kidney disease, hypertension, neurodermatitis, hypercholesterolemia, hyper hypothyroidism, osteoarthritis. Current medications: Gabapentin, insulin, levothyroxine, Celexa, Wellbutrin, primidone, sumatriptan, aspirin. Allergies: Metformin causes diarrhea, azithromycin causes hives. Family history: Her mother was diagnosed with lung cancer and at age 72 from a cancer. Her father had no history of cancer. She has 2 sisters and 1 brother with no history of cancer. She has 2 daughters with nohistory of cancer. 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 She is . She has 2 daughters and 1 grandchild. She is a never smoker. She denies alcohol use. Review of systems: The remainder of a 10 point review of systems was unremarkable. Physical examination: HEENT: Sclerae anicteric, normal oropharyngeal membrane. Neck: No lymphadenopathy. Lungs: Clear to auscultation. Breasts: S/P left mastectomy, no suspicious skin changes, nodules, or masses bilaterally, no axillary lymphadenopathy bilaterally. Heart: No murmurs. Abdomen: Soft, nontender, no organomegaly or masses. Extremities: No edema. Skin: No rash. Neurologic: Normal gait. Assessment/plan: The patient is a 73-year-old female who presented in 01/2019 with a left breast borderline phyllodestumor. The patient underwent a lumpectomy on 03/31/2018. She underwent a left mastectomy on 06/09/2019. She is compliant with self exams and mammograms. There is no strong clinical evidence of recurrent breast cancer. Borderline phyllodes tumors with no stromal overgrowth are unlikely to metastasize. A chest CT in late 08/2019 showed 3 small right-sided pulmonary nodules, which are likely benign. A chest CT in early 03/2021 showed stable findings. A chest CT in early 10/2021 showed stable findings. We monitored chest CTs for over 2 years which have shown stable pulmonary nodules. We will not follow further surveillance chest CTs. She had 2 presentations in 01/2022 with loss of consciousness of uncertain etiology. Imaging studiesincluding 2 brain CTs without contrast, a brain/neck CTA, and a C/A/P CT without contrast and a lumbar puncture showed no evidence of a neoplastic process. She had additional presentations in 2022 with neurologic symptoms. An brain MRI and a brain and neck CTA were unremarkable. She was followed bya neurologist. A brain MRI in late 07/2023 was unremarkable. She developed intermittent left shoulder, left axillary, and upper left arm pain in early fall 2022, which have not progressed over the last interval. She remains on gabapentin 300/300/600 for a pre-existing painful bilateral leg neuropathy. She takes additional doses of Tylenol and aspirin with transient relief. A chest CT with IV contrast in mid-04/2023 was unremarkable. A neck CT with IV contrast in mid-04/2023 was unremarkable. I instructed her to discuss the symptoms with her neurologist at an upcoming appointment. She reports an intact appetite. She lost weight from 260 pounds on 05/12/2023 down to 235 pounds on 11/10/2023. We will monitor her weights. We will consider ordering CTs if she has further weight loss. Visit summary: The patient is a 73-year-old female who presented 01/2019 with a left breast borderline phyllodes tumor, which typically follows an indolent course. She underwent a left mastectomy in 05/2019. There was no indication for adjuvant hormonal therapy. She presents today for routine follow-up of the breast cancer. A history and physical revealed no new findings. She has a history of pulmonary nodules which have been stable on multiple chest CTs. I spent 30 minutes during this encounter, reviewing extensive imaging studies, performing history and physical, and providing education and counseling. documented in this encounter Plan of Treatment Upcoming Encounters Date Type Department Care Team (Late st Contact Info) Description 07/12/2024 8:45 AM EST Office Visit [facility] [address] [phone] Bhakti Rodgers MD [address] [place] [address] 07/18/2024 8:30 AM EDT Office Visit [address] [phone] Caitlin Nash PA [address] [place] [address] 11/22/2024 9:00 AM EDT Office Visit [facility] Hematology Oncology [address] [place] [phone] Eddie De Leon MD [address] [place] [phone] documented as of this encounter Visit Diagnoses Diagnosis Phyllodes tumor of breast- Primary Pulmonary nodules Other diseases of lung, not elsewhere classified documented in this encounter Care Teams Title Curative Specialist Relationship Specialty Start Date End Date Bhakti Rodgers MD [address] [place] [address] PCP - General Internal Medicine 07/02/20 documented as of this encounter
--- OUTSIDE RECORDS SUMMARY | 2024-06-16 14:55 | XMS_ITS | Encounter Summary ---
Author Organization [facility] Address [address] [place] [address] Care Team Providers Care Tie Tape Machine Operator Name Role Phone Kizzy Archibald MD Primary Care Provider Bhakti Hickey MD Primary Care Provider [phone] Encounter Details Date Type Department Care Team Description 03/31/2019 Hospital Medical Records [address] [place] [id number] Josiah Cooney MD [address] [place] [phone] Social History Tobacco Use Types Packs/Day Years [...] on filedocumented in this encounter Care Teams Tie Tape Machine Operator Relationship Specialty Start Date End Date Kizzy Archibald MD PCP - General Internal Medicine 05/29/15 07/01/20 Bhakti Rodgers MD [address] [place] [address] PCP - General Internal Medicine 07/02/20 documented as of this encounter
--- OUTSIDE RECORDS SUMMARY | 2024-06-16 14:55 | XMS_ITS | Encounter Summary ---
Author Organization [facility] Address [address] [place] [address] Care Team Providers Care First Aid Nurse Name Role Phone Kizzy Archibald MD Primary Care Provider Jonathan Bhakti Smith MD Primary Care Provider [phone] Encounter Details Date Type Department Care Team Description 05/08/2019 Orders Only General Surgery - [address] [place] [phone] Josiah Cooney MD [address] [place] [phone] Phyllodes tumor of breast (Primary Dx) Social History Tobacco Use Types Packs/Day Years [...] Diagnoses Diagnosis Phyllodes tumor of breast- Primary documented in this encounter Care Teams First Aid Nurse Relationship Specialty Start Date End Date Kizzy Archibald MD PCP - General Internal Medicine 05/29/15 07/01/20 Bhakti Rodgers MD [address] [place] [address] PCP - General Internal Medicine 07/02/20 documented as of this encounter
--- OUTSIDE RECORDS SUMMARY | 2024-06-16 14:55 | XMS_ITS | Encounter Summary ---
Author Organization [facility] Address [address] [place] [address] Care Team Providers Care Head Start Teacher Name Role Phone Bhakti Rodgers MD Primary Care Provider [phone] Encounter Details Date Type Department Care Team Description 03/18/2021 Orders Only Adult Medicine [address] [address] Ellen Wellington PA-C [address] [place] [address] Type 2 diabetes mellitus with stage 3 chronic kidney disease, with long-term current use of insulin, unspecified whether stage 3a or 3b CKD (HCC) Social History Tobacco Use Types Packs/Day Years [...] have Coronavirus / COVID-19? No / Unsure 03/11/2021 12:38 PM EDT documented as of this encounter Plan of Treatment Not on file documented as of this encounter Visit Diagnoses Diagnosis Type 2 diabetes mellitus with stage 3 chronic kidney disease, with long-term current use of insulin, unspecified whether stage 3a or 3b CKD (HCC) documented in this encounter Care Teams Head Start Teacher Relationship Specialty Start Date End Date Bhakti Rodgers MD [address] [place] [address] PCP - General Internal Medicine 07/02/20 documented as of this encounter
--- OUTSIDE RECORDS SUMMARY | 2024-06-16 14:55 | XMS_ITS | Encounter Summary ---
Author Organization [facility] Address [address] [place] [address] Care Team Providers Care Bobj Developer Name Role Phone Kizzy Archibald MD Primary Care Provider Bhakti Hickey MD Primary Care Provider [phone] Reason for Visit * Reason Comments E-prescribe Rx Request Encounter Details Date Type Department Care Team Description 02/13/2019 Refill Medicine/Pediatrics - [address] [phone] Eddie Bo PA-C E-prescribe Rx Request Social History Tobacco Use [...] encounter Miscellaneous Notes * Telephone Encounter - Megan Harrison M.A. - 02/14/2019 1:48 PM EDT Rx to pharmacy. E- receipt confirmed by pharmacy. vf * Telephone Encounter - Sofia Cook M.A. - 02/14/2019 1:48 PM EDT Rx sent * Telephone Encounter - Alana Isidro M.A. - 02/14/2019 8:45 AM EDT Last ov 11/09/18 and scheduled for 02/17/19. RX pended with no refill. Pt due for lab. Lab Results Component Value Date CHOL 157 04/06/2018 LDL 83 04/06/2018 HDL 37 04/06/2018 TRIG 186 04/06/2018 SGOT 27 04/06/2018 SGPT 31 04/06/2018 * Telephone Encounter - Yani Zacarias - 02/14/2019 8:40 AM EDT Patient would like script to be: E-PRESCRIBED/FAXED TO PHARMACY WHEN WAS THE PATIENT'S LAST APPOINTMENT IN ADULT MEDICINE? 11/09/18 WHEN WAS THE LAST TIME THE PATIENT SAW THEIR PCP? 09/19/18 Does patient have an upcoming appointment? Yes 02/17/19 (THE MEDICATION REQUESTED IS ON THE MED LIST ABOVE) All of the medications requested were on the CURRENT MEDS list Did you check the Pharmacy information above?: YES Patient wants: 90 -day supply Is this a mail order prescription request ? NO If the refill is from a FAXED refill request what is the RX # listed on the fax? N/A Patients current insurance carrier is: Payor: ON LICENSE OF [facility] FFS / Plan: [employer] MEDICARE PLUS $15 [employer] / Product Type: MEDICARE [id number] documented in this encounter Plan of Treatment Not on file documented as of this encounter Visit Diagnoses Not on filedocumented in this encounter Care Teams Bobj Developer Relationship Specialty Start Date End Date Kizzy Archibald MD PCP - General Internal Medicine 05/29/15 07/01/20 Bhakti Rodgers MD [address] [place] [address] PCP - General Internal Medicine 07/02/20 documented as of this encounter
--- OUTSIDE RECORDS SUMMARY | 2024-06-16 14:55 | XMS_ITS | Encounter Summary ---
Author Organization [facility] Address [address] [place] [address] Care Team Providers Care Quartz Cutter Name Role Phone Kizzy Archibald MD Primary Care Provider Jonathan Bhakti Smith MD Primary Care Provider [phone] Encounter Details Date Type Department Care Team Description 10/19/2018 Orders Only Adult Medicine - [address] [address] Ramone Barajas MD Social History Tobacco Use Types Packs/Day [...] on filedocumented in this encounter Care Teams Quartz Cutter Relationship Specialty Start Date End Date Kizzy Archibald MD PCP - General Internal Medicine 05/29/15 07/01/20 Bhakti Rodgers MD [address] [place] [address] PCP - General Internal Medicine 07/02/20 documented as of this encounter
--- OUTSIDE RECORDS SUMMARY | 2024-06-16 14:55 | XMS_ITS | Encounter Summary ---
Author Organization [facility] Address [address] [place] [address] Care Team Providers Care Lead Consultant Name Role Phone Kizzy Archibald MD Primary Care Provider Jonathan Bhakti Smith MD Primary Care Provider [phone] Encounter Details Date Type Department Care Team Description 06/05/2015 Hospital Medical Records [address] [place] [address] Allen Baeza MD Social History Tobacco Use [...] on filedocumented in this encounter Care Teams Lead Consultant Relationship Specialty Start Date End Date Kizzy Archibald MD PCP - General Internal Medicine 05/29/15 07/01/20 Bhakti Rodgers MD [address] [place] [address] [phone] PCP - General Internal Medicine 07/02/20 documented as of this encounter
--- OUTSIDE RECORDS SUMMARY | 2024-06-16 14:55 | XMS_ITS | Encounter Summary ---
Author Organization [facility] Address [address] [place] [address] Care Team Providers Care Back Tender Name Role Phone Kizzy Archibald MD Primary Care Provider Bhakti Hickey MD Primary Care Provider [phone] Reason for Visit * Reason Onset Date Comments Prior Authorization 04/12/2018 Encounter Details Date Type Department Care Team Description 04/12/2018 Telephone Endocrinology - [address] [address] Ramone Barajas MD Prior Authorization Social History [...] encounter Miscellaneous Notes * Telephone Encounter - Guillermina Moya M.A. - 04/12/2018 4:07 PM EST Prior authorization is not needed. Insurance will pay for Humalog Kwikpen-not Novolog flex pen. Please order Humalog Kwikpen for patient. Thank you, Guillermina Starks Prior Authorization Dept Ext [phone] Fax [phone] * Telephone Encounter - Diandra Maldonado M.A. - 04/12/2018 3:53 PM EST Novolog not covered by insurance.This is a plan exclusion and is not covered under patients plan Humalog is covered Thank you Please reply back to p [phone] prior authorization pool Gely Maldonado C.M.A. [facility] Prior Authorizations Ext: [id number] * Telephone Encounter - Anali Lemus - 04/12/2018 2:52 PM EST Pre Authorization for Medication-do not complete and send this encounter unless you have the fax from the pharmacy. Is this a Cover My Meds request: [place] of Medication humalog kwikpen Dose of Medication 100 unit / ml inj What is the RX # from the faxed refill? [id number] How does patient take this med? Inject 6 units subcutaneously about 15 minutes before meals and persliding scale max 50 units per day What Pharmacy did the fax come from: [facility] fax #: [phone] [employer] Information from fax: What Prescription Plan does the patient have? Medicare rx d identification officer hroups g BIN/PCN if applicable: na Cardholder ID:[id number] Person Code: na Relationship Code: na Help desk phone: na documented in this encounter Plan of Treatment Not on file documented as of this encounter Visit Diagnoses Not on filedocumented in this encounter Care Teams Back Tender Relationship Specialty Start Date End Date Kizzy Archibald MD PCP - General Internal Medicine 05/29/15 07/01/20 Bhakti Rodgers MD [address] [place] [address] PCP - General Internal Medicine 07/02/20 documented as of this encounter
--- OUTSIDE RECORDS SUMMARY | 2024-06-16 14:55 | XMS_ITS | Encounter Summary ---
Author Organization [facility] Address [address] [place] [address] Care Team Providers Care Baby Formula Mixer Name Role Phone Kizzy Archibald MD Primary Care Provider Bhakti Hickey MD Primary Care Provider [phone] Reason for Referral * Non MICHELLE (Priority) - Authorized/Booked Specialty Diagnoses / Procedures Referred By Contac t Referred To Contact Plastic Surgery / Plastic surgery Diagnoses Phyllodes tumor of breast Procedures REFERRAL TO PLASTIC SURGERY (IN NETWORK) Josiah Cooney MD [address] [place] [phone] Plastic Surg/[place] [address] [facility] [address] [place] [phone] Referral ID Status Reason Start Date Expiration Date V isits Requested Visits Authorized [id number] Authorized/B ooked 05/09/2019 05/08/2020 1 1 Encounter Details Date Type Department Care Team Description 05/09/2019 Orders Only General Surgery - [place] [address] [facility] [address] [place] [address] Josiah Cooney MD [address] [place] [address] Phyllodes tumor of breast (Primary Dx) Social [...] Primary documented in this encounter Care Teams Baby Formula Mixer Relationship Specialty Start Date End Date Kizzy Archibald MD PCP - General Internal Medicine 05/29/15 07/01/20 Bhakti Rodgers MD [address] [place] [address] PCP - General Internal Medicine 07/02/20 documented as of this encounter
--- OUTSIDE RECORDS SUMMARY | 2024-06-16 14:55 | XMS_ITS | Encounter Summary ---
Author Organization [facility] Address [address] [place] [address] Care Team Providers Care Motorboat Mechanic Name Role Phone Bhakti Rodgers MD Primary Care Provider Encounter Details Date Type Department Care Team Description 02/28/2021 Orders Only Medical Records [address] [place] [address] Josiah Cooney MD [address] [place] [address] Social History Tobacco Use Types Packs/Day Years [...] have Coronavirus / COVID-19? No / Unsure 02/26/2021 10:21 AM EDT documented as of this encounter Plan of Treatment Not on file documented as of this encounter Procedures Procedure Name Priority Date/Time Associated Diagnosis Comments OUTSIDE MAMMO Routine 02/27/2021 OUTSIDE MAMMO Routine 02/27/2021 documented in this encounter Results * OUTSIDE MAMMO (02/27/2021) Josiah Cooney MD RADIOLOGY * OUTSIDE MAMMO (02/27/2021) Josiah Cooney MD RADIOLOGY documented in this encounter Visit Diagnoses Not on filedocumented in this encounter Care Teams Motorboat Mechanic Relationship Specialty Start Date End Date Bhakti Rodgers MD [address] [place] [address] [phone] PCP - General Internal Medicine 07/02/20 documented as of this encounter
--- OUTSIDE RECORDS SUMMARY | 2024-06-16 14:55 | XMS_ITS | Encounter Summary ---
Author Organization [facility] Address [address] [place] [address] Care Team Providers Care City Bailiff Name Role Phone Kizzy Archibald MD Primary Care Provider Bhakti Hickey MD Primary Care Provider [phone] Encounter Details Date Type Department Care Team Description 05/08/2019 Telephone General Surgery [address] [place] [address] Josiah Cooney MD [address] [place] [address] [phone] Social History Tobacco Use Types Packs/Day Years [...] encounter Miscellaneous Notes * Telephone Encounter - Yanci Espinoza - 05/08/2019 3:02 PM EST Pt canceled her post op and she would like to go ahead and have her left breast removed documented in this encounter Plan of Treatment Not on file documented as of this encounter Visit Diagnoses Not on filedocumented in this encounter Care Teams City Bailiff Relationship Specialty Start Date End Date Kizzy Archibald MD PCP - General Internal Medicine 05/29/15 07/01/20 Bhakti Rodgers MD [address] [place] [address] PCP - General Internal Medicine 07/02/20 documented as of this encounter
--- OUTSIDE RECORDS SUMMARY | 2024-06-16 14:55 | XMS_ITS | Encounter Summary ---
Author Organization [facility] Address [address] [place] [address] Care Team Providers Care Qualitative Field Coordinator Name Role Phone Bhakti Rodgers MD Primary Care Provider Encounter Details Date Type Department Care Team Description 09/09/2020 Ring Making Machine Operator Report Medical Records [address] [place] [address] Corey Lund MD Social History Tobacco Use [...] have Coronavirus / COVID-19? No / Unsure 09/05/2020 8:45 AM EDT documented as of this encounter Plan of Treatment Not on file documented as of this encounter Visit Diagnoses Not on filedocumented in this encounter Care Teams Qualitative Field Coordinator Relationship Specialty Start Date End Date Bhakti Rodgers MD [address] [place] [phone] PCP - General Internal Medicine 07/02/20 documented as of this encounter
--- OUTSIDE RECORDS SUMMARY | 2024-06-16 14:55 | XMS_ITS | Encounter Summary ---
Author Organization [facility] Address [address] [place] [address] Care Team Providers Care Toilet Attendant Name Role Phone Kizzy Archibald MD Primary Care Provider Bhakti Hickey MD Primary Care Provider [phone] Reason for Visit * Reason Onset Date Comments Provider Call Back 10/24/2018 Encounter Details Date Type Department Care Team Description 10/24/2018 Telephone Endocrinology - [address] [address] Ramone Barajas MD Provider Call Back Social [...] encounter Miscellaneous Notes * Telephone Encounter - Ramone Barajas MD - 10/24/2018 9:28 PM EDT I spoke with pt she needs to get the VIALS of NOVOLOg, Pens will not work. She should have them at the pharmacy * Telephone Encounter - Kelsie Crane M.A. - 10/24/2018 4:35 PM EDT Please send to [facility] * Telephone Encounter - Kareen Prabhjot - 10/24/2018 4:03 PM EDT This will need to go to Dr. Barajas and his Nursing staff. * Telephone Encounter - Yoli Wood LMaribellP.N. - 10/24/2018 9:04 AM EDT Please clarify ,pt has no appt tomorrow .Who is the appt with that she is referring to ? * Telephone Encounter - David Estevez - 10/24/2018 8:40 AM EDT Caller requesting call back from provider: Is the caller the patient? YES If caller is not the patient, what is the callers name? N/A Callers relationship to patient? N/A If person calling is not the patient themselves, is there a verbal release in FYI or permanent comments for this person: NO Reason for call back: Patient called stating she has an appt at 1:15 tomorrow. She stated that Jonathan Burt said she had to bring medicine and she's not sure which one it is. Caller offered to speak with the nurse for assistance: YES Response: Patient offered to speak with nurse for assistance and patient agreed. Message forwarded to nurse. documented in this encounter Plan of Treatment Not on file documented as of this encounter Visit Diagnoses Not on filedocumented in this encounter Care Teams Toilet Attendant Relationship Specialty Start Date End Date Kizzy Archibald MD PCP - General Internal Medicine 05/29/15 07/01/20 Bhakti Rodgers MD [address] [place] [address] PCP - General Internal Medicine 07/02/20 documented as of this encounter
--- OUTSIDE RECORDS SUMMARY | 2024-06-16 14:55 | XMS_ITS | Encounter Summary ---
Author Organization [facility] Address [address] [place] [address] Care Team Providers Care Adjutant General Name Role Phone Kizzy Archibald MD Primary Care Provider Jonathan Bhakti Smith MD Primary Care Provider [phone] Encounter Details Date Type Department Care Team Description 07/20/2018 Outbound Supervisor Report Medical Records [address] [place] [address] Germán Luevano MD Social History Tobacco Use [...] on filedocumented in this encounter Care Teams Adjutant General Relationship Specialty Start Date End Date Kizzy Archibald MD PCP - General Internal Medicine 05/29/15 07/01/20 Bhakti Rodgers MD [address] [place] [phone] PCP - General Internal Medicine 07/02/20 documented as of this encounter
--- OUTSIDE RECORDS SUMMARY | 2024-06-16 14:55 | XMS_ITS | Encounter Summary ---
Author Organization [facility] [place] [address] Care Team Providers Care Program Lead Name Role Phone Bhakti Rodgers MD Primary Care Provider [phone] Reason for Visit * Reason Onset Date Comments ER follow up 05/30/2024 Encounter Details Date Type Department Care Team ([facility] Contact Info) Description 05/30/2024 Telephone Adult [address] [phone] Devi Luther RN ER follow up Social History Tobacco Use Types [...] on file documented as of this encounter Progress Notes * Devi Luther RN - 05/30/2024 2:52 PM EST 05/27 seen at [facility] for LARA and slurred speech Left vm for pt to return my call. documented in this encounter Plan of Treatment Upcoming Encounters Date Type Department Care Team ([facility] Contact Info) Description 07/12/2024 8:45 AM EST Office Visit Adult Medicine [address] [phone] Bhakti Rodgers MD [address] [place] [address] 07/18/2024 8:30 AM EDT Office Visit Endocrinology - [address] [phone] Caitlin Nash PA [address] [place] [address] 11/22/2024 9:00 AM EDT Office Visit [facility] Hematology Oncology [address] [place] [phone] Eddie De Leon MD [address] [place] [phone] documented as of this encounter Visit Diagnoses Not on filedocumented in this encounter Care Teams Program Lead Relationship Specialty Start Date End Date Bhakti Rodgers MD [address] [place] [address] PCP - General Internal Medicine 07/02/20 documented as of this encounter
--- OUTSIDE RECORDS SUMMARY | 2024-06-16 14:55 | XMS_ITS | Encounter Summary ---
Author Organization [facility] Address [address] [place] [address] Care Team Providers Care Supervisor Electronics Testing Name Role Phone Bhakti Rodgers MD Primary Care Provider [phone] Reason for Visit * Reason Onset Date Comments VNA Call 08/08/2020 Encounter Details Date Type Department Care Team Description 08/08/2020 Telephone Adult Medicine [address] [address] Bhakti Rodgers MD [address] [place] [address] [phone] VNA Call Social History Tobacco Use Types [...] have Coronavirus / COVID-19? No / Unsure 08/08/2020 12:00 PM EDT documented as of this encounter Miscellaneous Notes * Telephone Encounter - Sarah Powers R.N. - 08/08/2020 11:10 AM EDT FYI to Dr. Rodgers * Telephone Encounter - Brigette Shepard - 08/08/2020 11:08 AM EDT [facility] CALL Which [facility] office is calling? Tony Full name of caller: bill The caller is A Physical Therapist Is the caller at the patients home?: NO Reason for call: the patient is declining physical therapy fyi Does caller need an urgent call back? NO Was CONTACT Telephone # obtained above?: YES Fax #: documented in this encounter Plan of Treatment Not on file documented as of this encounter Visit Diagnoses Not on filedocumented in this encounter Care Teams Supervisor Electronics Testing Relationship Specialty Start Date End Date Bhakti Rodgers MD [address] [place] [address] PCP - General Internal Medicine 07/02/20 documented as of this encounter
--- OUTSIDE RECORDS SUMMARY | 2024-06-16 14:55 | XMS_ITS | Encounter Summary ---
Author Organization [facility] Address [address] [place] [address] Care Team Providers Care Hot Billet Shear Operator Name Role Phone Bhakti Rodgers MD Primary Care Provider [phone] Reason for Visit * Reason Onset Date Comments Pre-visit Diabetes Lab Adult Medicine 11/07/202011/19 Encounter Details Date Type Department Care Team Description 11/07/2020 Telephone Endocrinology - [place] [address] [place] [address] Caitlin Nash PA-C [address] [place] [address] Pre-visit Diabetes Lab Adult Medicine (11/19) Social History Tobacco Use Types Packs/Day Years [...] encounter Miscellaneous Notes * Telephone Encounter - Diandra Banda - 11/07/2020 9:12 AM EDT Sent patient an email advising them to complete diabetic lab work at least three days prior to their upcoming appointment. documented in this encounter Plan of Treatment Not on file documented as of this encounter Visit Diagnoses Not on filedocumented in this encounter Care Teams Hot Billet Shear Operator Relationship Specialty Start Date End Date Bhakti Rodgers MD [address] [place] [id number] PCP - General Internal Medicine 07/02/20 documented as of this encounter
--- OUTSIDE RECORDS SUMMARY | 2024-06-16 14:55 | XMS_ITS | Encounter Summary ---
Author Organization [facility] Address [address] [place] [address] Care Team Providers Care Fish And Wildlife Technician Name Role Phone Kizzy Archibald MD Primary Care Provider Jonathan Bhakti Smith MD Primary Care Provider [phone] Encounter Details Date Type Department Care Team Description 06/07/2015 Hospital Medical Records [address] [place] [address] Allen Baeza MD Social History Tobacco Use [...] on filedocumented in this encounter Care Teams Fish And Wildlife Technician Relationship Specialty Start Date End Date Kizzy Archibald MD PCP - General Internal Medicine 05/29/15 07/01/20 Bhakti Rodgers MD [address] [place] [address] [phone] PCP - General Internal Medicine 07/02/20 documented as of this encounter
--- NOTE | 2024-06-16 14:58 | A.OFFVIS_ITS ---
Vital Signs 06/16/24 15:03 Height 5 ft 3 in Weight 246 lb BMI 43.6 BP 132/80 Blood Pressure Location Rt brachial Position Sitting Pulse 95 Pulse Source Pulse Oximeter Pulse Oximetry (%) 97 Oxygen Delivery Method Room Air Intake Visit Reasons: Per Latia Insulation Board Back Tender Required: No Accompanied by: Spouse Allergies Iodinated Contrast Media [IVP DYE] Allergy (Severe, Verified 06/16/24 15:02) SEDATION,TACHYCARDIA azithromycin Allergy (Unknown, Verified 06/16/24 15:02) Hives erythromycin base [ERYTHROMYCIN BASE] Allergy (Unknown, Verified 06/16/24 15:02) HIVES metformin Adverse Reaction (Unknown, Verified 06/16/24 15:02) Diarrhea Medication List - Last Reconciled 06/16/24 by ANTHONY Almonte aspirin 81 mg PO DAILY blood sugar diagnostic (FreeStyle Lite Strips) cholecalciferol (vitamin D3) 25 mcg PO DAILY clonidine HCl 0.1 mg PO TID divalproex (Depakote) 125 mg PO DAILY gabapentin 100 mg PO TID levothyroxine 125 mcg PO DAILY@0600 lorazepam (Ativan) 0.5 mg PO BID PRN 30 days pen needle, diabetic (BD Ultra-Fine Micro Pen Needle) simvastatin 20 mg PO BEDTIME HPI Comments Details: 73-yr-old female presents for f/u of DaTSCAN results. 05/30/2024, brain david SPECT study was positive, showed slight decreased activity within the left putamen. There was symmetric activity in the anterior aspect of the caudate nuclei bilaterally. 04/20/2024 lab results were notable for elevated random glucose 342. Elevated BUN 20- baseline, creatinine 0.91 WNL Elevated AST 56, ALT 68, alk-phos 125- baseline for patient. BLUE positive 1:80, nuclear, dense fine speckled (September of 2022 BLUE positive 1:80 with nuclear homogeneous pattern). CBC-WNL, with HCT low at 35.9-baseline. ESR, vitamin B1, vitamin B12, MMA level, folate, homocystine, TSH- WNL Today, patient and state that they are not very concerned about patient's memory. Fair most concerned about patient's chronic left shoulder pain, which started 3 years ago following left breast mastectomy. They state they were told this was present shoulder. They have seen physiatry before at [facility] in [place]. They were told she was not a candidate for cortisone injection as her blood sugars are not well controlled. She has difficulties describing the pain, but is always there, and it interferes with her sleep, she needs to sleep always on her right side. She does note that she continues to shake, however states this is only when her blood sugars are off. Patient is not concerned about her walking, states she does not use a device other than walking with a grocery cart for stability when shopping. She denies any recent falls. She can have lightheadedness with the migraine attacks, but no usual orthostatic lightheadedness. 04/12/2024, previous HPI: 73-yr-old female presents for f/u visit for migraine, accompanied by her dtr. Maryann. Dtr reports that pt has migraine- her typical migraine a/w inability to speak, loss of body control, slurred speech, fever, and cold sweats. Her last full attack was in Sep, patient was treated at [facility]. Stopped Ajovy as pt still seemed to be having the migraine episodes. They are using Ubrelvy and lorazepam p.r.n. at onset of milder attacks, which does seem to be helpful. The Ubrelvy does seem to cause some abdominal bubbling. Daughter notes that she has just started to have episode of right sided hemiplegic migraine, her older sister has similar symptoms, and her mother's sister also has symptoms of hemiplegic migraine. They have never had genetic testing. Her daughter is concerned about patient's memory. Patient is often home alone. Pt has been crying more. The littlest things upset her. States she is repeating herself and hesitating to initiate speech at times. Sometimes she stares off into space, more so after taking her divalproex dose. She recently went without checking her blood sugar for a few days because she had ran out of her test strips. Her daughter does help her manage her medications and fill her pill boxes. She went to her sister's house for Thanksgiving, and did not know where she was. She is not sleeping well. During cognitive eval today, patient has visible tremor. Patient states she has had a tremor for some time. She endorses hyposmia for a long time, soft speech, occasional orthostatic lightheadedness, generalized stiffness, sleep talking, sleep behaviors, sleep apnea but does not use a CPAP machine. She denies hallucinations, constipation. [facility] Medical History Migraine Type 2 diabetes mellitus CKD (chronic kidney disease) stage 2, GFR 60-89 ml/min Anxiety Obstructive sleep apnea Encephalitis Hypothyroid HTN (hypertension) HLD (hyperlipidemia) Diabetes Complicated migraine Surgical History Hx of left mastectomy Hx of cholecystectomy H/O section Family History Mother Lung cancer Diabetes Depression Daughter Alcohol abuse Father FH: cholecystectomy Social History Household Members: Children Housing: House Do you presently have visiting nurse or other home services: Yes Unable to assess alcohol history related to: Unable to respond Alcohol intake: never Comment: 1 TO 1 SITTER Patient Tobacco Use Status: Never used Tobacco e-Cigarette/Vaping Use: Never Used Second Hand Smoke Exposure: No Advance Directives Date on File: 09/28/22 service: No Current occupational status: retired Physical Exam Vital Signs: Last Vital Signs Pulse 95 06/16/24 15:03 BP 132/80 06/16/24 15:03 Pulse Ox 97 06/16/24 15:03 Oxygen Delivery Method Room Air 06/16/24 15:03 BMI result Body Mass Index 43.6 Const General: cooperative and no acute distress Resp Effort & Inspection: normal respiratory effort and able to speak in complete sentences Neuro Other: General: A&O x's 3, with mild short-term memory lapses, though also was able to recall the name of the Prior authorization at the physiatry office. Expression: Mildly decreased Voice: Soft voice Tremor: LUE rest tremor. Tone: BUE tone. Has difficulty elevating left arm up fully. Dyskinesia: None FFM: Decreased with poor fluidity, more so on left Finger-Nose: Intact with mild BUE tremor Foot taps: Decreased, more so on left Gait: Slow to stand, stooped with right shoulder droop, decreased arm swing, shorter steps, multiple steps to turn. Psych: Pleasant affect. Assessment & Plan Assessment & Plan (1) Tremor: Comment: Positive DaTSCAN. Tremor onset preceded starting Depakote tx. Code(s): R25.1 - Tremor, unspecified Category: Medical (2) Migraine: Comment: suggestive of hemiplegic migraine Code(s): G43.909 - Migraine, unspecified, not intractable, without status migrainosus Category: Medical Qualifiers: Migraine type: migraine (< 15 days per month) with aura Status migrainosus presence: with status migrainosus Intractability: not intractable Qualified Code(s): G43.101 - Migraine with aura, not intractable, with status migrainosus (3) Mood disorder: Code(s): F39 - Unspecified mood [affective] disorder Category: Medical (4) Sleep difficulties: Code(s): G47.9 - Sleep disorder, unspecified Category: Medical (5) Cognitive disorder: Code(s): F09 - Unspecified mental disorder due to known physiological condition Category: Medical Plan For cognitive and tremor symptoms: Reviewed DaTSCAN results, which do suggest presence of a very mild early Parkinson's disease process. Reviewed 05/26/[address] without contrast- did not show any acute intracranial findings and no significant atrophy like change or white matter disease. Reviewed labs- * Hyperglycemia. Patient's should continue to work with her PCP/diabetic care team to optimize her blood sugar control. Follow-up with Nephrology as scheduled. * Persistent positive BLUE- check labs and request rheumatology input. Advised to trial carbidopa levodopa in hopes this would improve rigidity, stiffness, tremor, which may improve her left shoulder symptoms, and improve sleep. They would like to review this at home before making any decisions. would also like us to consider a trial of Journavx for pain control- however this is not currently available. List of patient education resources, and information on CD LD given to patient/ to review. We will check in with patient in a few weeks to to see what they have decided. For migraine, suspicious of hemiplegic migraine: Order previously sent to [place] for genetic testing for hemiplegic migraine panel- we will address at follow-up. Continue Depakote 125mg bid- for mood, migraine, and may prevent these acute episodes of encephalopathy. Continue Ubrelvy prn for now- as I would avoid triptans d/t variable BP/HTN. Continue Lorazepam 0.5mg- may take qhs and 1 extra tab per day prn- may take at onset of migraine attack w/ Ubrelvy. Previous migraine trials: venlafaxine, also topiramate, risperdal, primidone, lisinopril. Future considerations: Increasing Depakote, trialing verapamil or Acetazolamide Will follow-up upon review of above and patient to follow-up in clinic in 3-6 months or sooner prn. Orders: Orders Complement C3 Today R76.8 - Other specified abnormal immunological findings in serum Complement C4 Today R76.8 - Other specified abnormal immunological findings in serum C Reactive Protein Today R76.8 - Other specified abnormal immunological findings in serum Anti DNA DS Antibody Today R76.8 - Other specified abnormal immunological findings in serum Erythrocyte Sedimentation Rate Today R76.8 - Other specified abnormal immunological findings in serum Sjogren's Antibodies Today R76.8 - Other specified abnormal immunological findings in serum Referrals Rheumatology Referral R76.8 - Other specified abnormal immunological findings in serum Coding Level of Care Code New Pt Level 4 (51760) Diagnoses Tremor R25.1 Migraine with aura and with status migrainosus, not intractable G43.101 Migraine type: migraine (< 15 days per month) with aura Status migrainosus presence: with status migrainosus Intractability: not intractable Mood disorder F39 Sleep difficulties G47.9 Cognitive disorder F09
[2024-06-16 15:03] VITALS: BP 132/80; PULSE 95; O2SAT 97; BMI 43.6
--- NOTE | 2024-06-16 15:08 | MHC.OFFVIS ---
Vital Signs 06/16/24 15:03 Height 5 ft 3 in Weight 246 lb BMI 43.6 BP 132/80 Blood Pressure Location Rt brachial Position Sitting Pulse 95 Pulse Source Pulse Oximeter Pulse Oximetry (%) 97 Oxygen Delivery Method Room Air Intake Visit Reasons: Per Latia Daily Iodinated Contrast Media [IVP DYE] Allergy (Severe, Verified 06/16/24 15:02) SEDATION,TACHYCARDIA azithromycin Allergy (Unknown, Verified 06/16/24 15:02) Hives erythromycin base [ERYTHROMYCIN BASE] Allergy (Unknown, Verified 06/16/24 15:02) HIVES metformin Adverse Reaction (Unknown, Verified 06/16/24 15:02) Diarrhea Medication List - Last Reconciled 06/16/24 by ANTHONY Almonte aspirin 81 mg PO DAILY blood sugar diagnostic (FreeStyle Lite Strips) cholecalciferol (vitamin D3) 25 mcg PO DAILY clonidine HCl 0.1 mg PO TID divalproex (Depakote) 125 mg PO DAILY gabapentin 100 mg PO TID levothyroxine 125 mcg PO DAILY@0600 lorazepam (Ativan) 0.5 mg PO BID PRN 30 days pen needle, diabetic (BD Ultra-Fine Micro Pen Needle) simvastatin 20 mg PO BEDTIME HPI Comments Details: 73-yr-old female presents for f/u of DaTSCAN results. 05/30/2024, brain david SPECT study was positive, showed slight decreased activity within the left putamen. There was symmetric activity in the anterior aspect of the caudate nuclei bilaterally. 04/20/2024 lab results were notable for elevated random glucose 342. Elevated BUN 20- baseline, creatinine 0.91 WNL Elevated AST 56, ALT 68, alk-phos 125- baseline for patient. BLUE positive 1:80, nuclear, dense fine speckled (September of 2022 BLUE positive 1:80 with nuclear homogeneous pattern). CBC-WNL, with HCT low at 35.9-baseline. ESR, vitamin B1, vitamin B12, MMA level, folate, homocystine, TSH- WNL Today, patient and state that they are not very concerned about patient's memory. Fair most concerned about patient's chronic left shoulder pain, which started 3 years ago following left breast mastectomy. They state they were told this was present shoulder. They have seen physiatry before at [facility] in [place]. They were told she was not a candidate for cortisone injection as her blood sugars are not well controlled. She has difficulties describing the pain, but is always there, and it interferes with her sleep, she needs to sleep always on her right side. She does note that she continues to shake, however states this is only when her blood sugars are off. Patient is not concerned about her walking, states she does not use a device other than walking with a grocery cart for stability when shopping. She denies any recent falls. She can have lightheadedness with the migraine attacks, but no usual orthostatic lightheadedness. 04/12/2024, previous HPI: 73-yr-old female presents for f/u visit for migraine, accompanied by her dtr. Maryann. Dtr reports that pt has migraine- her typical migraine a/w inability to speak, loss of body control, slurred speech, fever, and cold sweats. Her last full attack was in Sep, patient was treated at [facility]. Stopped Ajovy as pt still seemed to be having the migraine episodes. They are using Ubrelvy and lorazepam p.r.n. at onset of milder attacks, which does seem to be helpful. The Ubrelvy does seem to cause some abdominal bubbling. Daughter notes that she has just started to have episode of right sided hemiplegic migraine, her older sister has similar symptoms, and her mother's sister also has symptoms of hemiplegic migraine. They have never had genetic testing. Her daughter is concerned about patient's memory. Patient is often home alone. Pt has been crying more. The littlest things upset her. States she is repeating herself and hesitating to initiate speech at times. Sometimes she stares off into space, more so after taking her divalproex dose. She recently went without checking her blood sugar for a few days because she had ran out of her test strips. Her daughter does help her manage her medications and fill her pill boxes. She went to her sister's house for Thanksgiving, and did not know where she was. She is not sleeping well. During cognitive eval today, patient has visible tremor. Patient states she has had a tremor for some time. She endorses hyposmia for a long time, soft speech, occasional orthostatic lightheadedness, generalized stiffness, sleep talking, sleep behaviors, sleep apnea but does not use a CPAP machine. She denies hallucinations, constipation. [facility] Medical History Migraine Type 2 diabetes mellitus CKD (chronic kidney disease) stage 2, GFR 60-89 ml/min Anxiety Obstructive sleep apnea Encephalitis Hypothyroid HTN (hypertension) HLD (hyperlipidemia) Diabetes Complicated migraine Surgical History Hx of left mastectomy Hx of cholecystectomy H/O section Family History Mother Lung cancer Diabetes Depression Daughter Alcohol abuse Father FH: cholecystectomy Social History Household Members: Children Housing: House Do you presently have visiting nurse or other home services: Yes Unable to assess alcohol history related to: Unable to respond Alcohol intake: never Comment: 1 TO 1 SITTER Patient Tobacco Use Status: Never used Tobacco e-Cigarette/Vaping Use: Never Used Second Hand Smoke Exposure: No Advance Directives Date on File: 09/28/22 service: No Current occupational status: retired Physical Exam Vital Signs: Last Vital Signs Pulse 95 06/16/24 15:03 BP 132/80 06/16/24 15:03 Pulse Ox 97 06/16/24 15:03 Oxygen Delivery Method Room Air 06/16/24 15:03 BMI result Body Mass Index 43.6 Const General: cooperative and no acute distress Resp Effort & Inspection: normal respiratory effort and able to speak in complete sentences Neuro Other: General: A&O x's 3, with mild short-term memory lapses, though also was able to recall the name of the Prior authorization at the physiatry office. Expression: Mildly decreased Voice: Soft voice Tremor: LUE rest tremor. Tone: BUE tone. Has difficulty elevating left arm up fully. Dyskinesia: None FFM: Decreased with poor fluidity, more so on left Finger-Nose: Intact with mild BUE tremor Foot taps: Decreased, more so on left Gait: Slow to stand, stooped with right shoulder droop, decreased arm swing, shorter steps, multiple steps to turn. Psych: Pleasant affect. Assessment & Plan Assessment & Plan (1) Migraine: Comment: suggestive of hemiplegic migraine Code(s): G43.909 - Migraine, unspecified, not intractable, without status migrainosus Category: Medical (2) Mood disorder: Code(s): F39 - Unspecified mood [affective] disorder Category: Medical (3) Sleep difficulties: Code(s): G47.9 - Sleep disorder, unspecified Category: Medical (4) Tremor: Comment: Positive DaTSCAN. Tremor onset preceded starting Depakote tx. Code(s): R25.1 - Tremor, unspecified Category: Medical Plan For cognitive and tremor symptoms: Reviewed DaTSCAN results, which do suggest presence of a very mild early Parkinson's disease process. Reviewed 05/26/[address] without contrast- did not show any acute intracranial findings and no significant atrophy like change or white matter disease. Reviewed labs, most notable for hyperglycemia. Patient's should continue to work with her PCP/diabetic care team to optimize her blood sugar control. Follow-up with Nephrology as scheduled. Advised to trial carbidopa levodopa in hopes this would improve rigidity, stiffness, tremor, which may improve her left shoulder symptoms, and improve sleep. They would like to review this at home before making any decisions. would also like us to consider a trial of Journavx for pain control. List of patient education resources, and information on CD LD given to patient/ to review. We will check in with patient in a few weeks to to see what they have decided. For migraine, suspicious of hemiplegic migraine: Order previously sent to [place] for genetic testing for hemiplegic migraine panel- we will address at follow-up. Continue Depakote 125mg bid- this may help mood, migraine, and may prevent these acute episodes of encephalopathy. Continue Ubrelvy prn for now- as I would avoid triptans d/t variable BP/HTN. Continue Lorazepam 0.5mg- may take qhs and 1 extra tab per day prn- may take at onset of migraine attack w/ Ubrelvy. Previous migraine trials: venlafaxine, also topiramate, risperdal, primidone, lisinopril. Future considerations: Increasing Depakote, trialing verapamil or Acetazolamide Will follow-up upon review of above and patient to follow-up in clinic in 3-6 months or sooner prn. Orders: Orders Complement C3 Today R76.8 - Other specified abnormal immunological findings in serum Complement C4 Today R76.8 - Other specified abnormal immunological findings in serum C Reactive Protein Today R76.8 - Other specified abnormal immunological findings in serum Anti DNA DS Antibody Today R76.8 - Other specified abnormal immunological findings in serum Erythrocyte Sedimentation Rate Today R76.8 - Other specified abnormal immunological findings in serum Sjogren's Antibodies Today R76.8 - Other specified abnormal immunological findings in serum Referrals Rheumatology Referral R76.8 - Other specified abnormal immunological findings in serum Coding Level of Care Code Est Pt Level 4 (10437) Diagnoses Migraine G43.909 Mood disorder F39 Sleep difficulties G47.9 Tremor R25.1
== END 2024-06-16 16:27 | disposition home or self-care (01) ==
PROVIDERS: PCP Internal Medicine; Visit Provider Nurse Practitioner Family
DX: R25.1 Tremor, unspecified (principal); G43.101 Migraine with aura, not intractable, with status migrainosus; F39 Unspecified mood [affective] disorder; G47.9 Sleep disorder, unspecified; R41.89 Other symptoms and signs involving cognitive functions and awareness
CPT/HCPCS: 99214

== ENCOUNTER → 2024-06-16 14:48 | Outpatient (BNVA) | payer MEDICARE, SELFPAY | PROVIDERS: PCP Internal Medicine; Visit Provider Nurse Practitioner Family | DX: R25.1 Tremor, unspecified (principal); G43.101 Migraine with aura, not intractable, with status migrainosus; R76.8 Other specified abnormal immunological findings in serum; F39 Unspecified mood [affective] disorder | CPT/HCPCS: 99212 ==

== ENCOUNTER 2024-08-13 16:41 | Emergency (ER) | payer MEDICARE, SELFPAY ==
[2024-08-13 16:45] VITALS: BP 180/80; PULSE 100; O2SAT 98
[2024-08-13 16:50] VITALS: BP 156/71; PULSE 79; RESP 16; TEMP 36.8; O2SAT 98; BMI 45.3
--- OUTSIDE RECORDS SUMMARY | 2024-08-13 17:09 | XMS_ITS | Encounter Summary ---
Author Organization [facility] Address [address] [place] [address] Care Team Providers Care Machine Plaster Mixer Name Role Phone Bhakti Rodgers MD Primary Care Provider [phone] Reason for Visit * Reason Onset Date Comments Medication Problem 07/19/2024 Encounter Details Date Type Department Care Team ([facility] st Contact Info) Description 07/19/2024 Telephone [facility] [address], [place] [phone] Caitlin Nash PA [address] [place] [address] Medication Problem Social History Tobacco Use Types Packs/Day Years Used Date Smoking Tobacco: Never Smokeless Tobacco: Never Alcohol Use Standard Drinks/Week Comments No 0 (1 standard drink = 0.6 oz pur e alcohol) Comments No Sex and Gender Information Value Date Recorded Sex Assigned at Female 03/15/2024 8:34 AM EST Legal Sex Female 10:52 AM EST Gender Identity Female 03/15/2024 8:34 AM EST Sexual Orientation Straight 03/15/2024 8: 34 AM EST documented as of this encounter Ordered Prescriptions Prescription Sig Dispense Quantity Refills Last Filled Start Date End Date insulin lispro (HumaLOG KwikPen Insulin) 100 unit/mL injection pen Inject three times a day BEFORE meals per scale: 100-125: 4 units; 126-150: 17 units; 151-200: 22 units; 201-250: 24 units; 251-300: 27 units; 301-350: 32 units; 351-400: 37 units 45 mL 5 07/25/2024 documented in this encounter Progress Notes * Anali Crain [place] - 08/11/2024 3:42 PM EDT [phone] (home) Returned call to PT, no answer and no voicemail. [employer] message sent to advise whatever insulin isno longer covered by INS company Pt needs to call and obtain a list of covered alternatives and letus know. * Issac Kasper - 08/09/2024 10:25 AM EDT Patient returned call to Anali. States the letter she received from [facility] she was given temp supply of Lispro. She doesn't need Lispro because she is already on Lantus, * Anali Crain [place] - 08/09/2024 9:59 AM EDT [phone] (home) PT informed to contact [facility] to obtain covered alternatives and call back so provider can send substitute. * Kavitha Tafoya - 08/09/2024 9:07 AM EDT Patient dropped off paperwork for Caitlin to fill out for [facility] to change her insulin because it is not on the formulary. It will be given to the M.A. * Charissa Almendarez - 08/04/2024 10:23 AM EDT Patient is calling stating [facility] sent her a letter stating the medication Lispro is not on there formulatory listing. Subject to certain limits. Will Charissa be prescribed something else? Please call patient at: [phone] * Anca Mike RN - 07/21/2024 11:55 AM EDT Please clarify SS BS 251-300 25 or 27 units * Riki Capps - 07/20/2024 1:15 PM EDT [facility] pharmacy calling back to get clarification for pt sliding scale in order to fill prescription for insulin lispro. Please call [phone] * Riki Capps - 07/19/2024 9:21 AM EDT Medication Problem: What is the name of the medication patient is having a problem with?: Insulin Lispro What is the problem?: Medication clarification: Pharmacy is questioning sliding scale that was sent. Who is calling about the problem? : A pharmacist: Pharmacy: [facility] pharmacy Pharmacist Name: n/a Pharmacy Is this a NEW medication?: yes How long has the patient been taking this medication? N/A Who prescribed this medication for the patient? Caitlin Nash Who is patients PCP?: Bhakti Rodgers MD Payor: [employer] / Plan: [employer] / Product Type: *No Product type* / documented in this encounter Plan of Treatment Upcoming Encounters Date Type Department Care Team (Late st Contact Info) Description 11/03/2024 8:30 AM EDT Office Visit Endocrinology - [address] [address] Caitlin Nash PA [address] [place] [address] 11/22/2024 9:00 AM EDT Office Visit [facility] Hematology Oncology [address] [place] [address] Eddie De Leon MD [address] [place] [address] documented as of this encounter Visit Diagnoses Not on filedocumented in this encounter Discontinued Medications Medication Sig Discontinue Reason Start Date End Da te insulin lispro (HumaLOG KwikPen Insulin) 100 unit/mL injection pen Inject three times a day BEFORE meals per scale: 100-125: 4 units; 126-150: 17 units; 151-200: 22 units; 201-250: 24 units; 251-300: 257 units; 301-350: 32 units; 351-400: 37 units Reorder 07/18/2024 07/25/2024 documented as of this encounter Care Teams Machine Plaster Mixer Relationship Specialty Start Date End Date Bhakti Rodgers MD [address] [place] [address] PCP - General Internal Medicine 07/02/20 documented as of this encounter
--- OUTSIDE RECORDS SUMMARY | 2024-08-13 17:09 | XMS_ITS | Encounter Summary ---
Author Organization [facility] Address [address] [place] [address] Care Team Providers Care Policyholder Information Clerk Name Role Phone Bhakti Rodgers MD Primary Care Provider [phone] Encounter Details Date Type Department Care Team Description 10/15/2021 SCAN [facility] Medical [facility] [address] [place] [address] [place] [phone] Yohannes Edwards PA-C Social History Tobacco [...] on filedocumented in this encounter Care Teams Policyholder Information Clerk Relationship Specialty Start Date End Date Bhakti Rodgers MD [address] [place] [address] [phone] PCP - General Internal Medicine 07/02/20 documented as of this encounter
--- OUTSIDE RECORDS SUMMARY | 2024-08-13 17:09 | XMS_ITS | Encounter Summary ---
Author Organization [facility] Address [address] [place] [address] Care Team Providers Care Oxygen Therapy Teacher Name Role Phone Bhakti Rodgers MD Primary Care Provider [phone] Encounter Details Date Type Department Care Team Description 01/22/2022 Hospital Medical Records [address] [place] [address] [facility] Social History Tobacco Use Types Packs/Day Years [...] Date/Time Associated Diagnosis Comments OUTSIDE ECHO Routine 01/23/2022 documented in this encounter Results * OUTSIDE ECHO (01/23/2022) Provider Default CARDIOLOGY [facility] documented in this encounter Visit Diagnoses Not on filedocumented in this encounter Care Teams Oxygen Therapy Teacher Relationship Specialty Start Date End Date Bhakti Rodgers MD [address] [place] [address] [phone] PCP - General Internal Medicine 07/02/20 documented as of this encounter
--- OUTSIDE RECORDS SUMMARY | 2024-08-13 17:09 | XMS_ITS | Encounter Summary ---
Author Organization [facility] Address [address] [place] [address] Care Team Providers Care Truck Packer Name Role Phone Bhakti Rodgers MD Primary Care Provider [phone] Reason for Visit * Reason Onset Date Comments Medication Problem 08/07/2024 Encounter Details Date Type Department Care Team ([facility] Contact Info) Description 08/07/2024 Telephone Adult Medicine [address] [phone] Ella Dobson MA Medication Problem Social History Tobacco Use Types [...] AM EST documented as of this encounter Progress Notes * Ella Dobson MA - 08/07/2024 10:05 AM EDT Medication Problem: What is the name of the medication patient is having a problem with?: lantus solostar pen What is the problem?: ins will cover 100 units per day,patient will need a Prior Auth for 60 units twice per day. Who is calling about the problem? : A pharmacist: Pharmacy: [facility] Pharmacist Name: [facility] Is this a NEW medication?: no How long has the patient been taking this medication? Who prescribed this medication for the patient? Who is patients PCP?: Bhakti Rodgers MD Payor: [employer] [place] [employer] / Plan: [employer] [place] [employer] / Product Type: *No Product type* / documented in this encounter Plan of Treatment Upcoming Encounters Date Type Department Care Team (Late st Contact Info) Description 11/03/2024 8:30 AM EDT Office Visit Endocrinology - [place] [address] [place] [address] Caitlin Nash PA [address] [place] [address] 11/22/2024 9:00 AM EDT Office Visit [facility] Hematology Oncology [address] [place] [phone] Eddie De Leon MD [address] [place] [phone] documented as of this encounter Visit Diagnoses Not on filedocumented in this encounter Care Teams Truck Packer Relationship Specialty Start Date End Date Bhakti Rodgers MD [address] [place] [address] PCP - General Internal Medicine 07/02/20 documented as of this encounter
--- OUTSIDE RECORDS SUMMARY | 2024-08-13 17:10 | XMS_ITS | Encounter Summary ---
Author Organization [facility] Address [address] [place] [address] Care Team Providers Care Supervisor Of Guidance And Testing Name Role Phone Bhakti Rodgers MD Primary Care Provider [phone] Encounter Details Date Type Department Care Team Description 08/17/2023 Hospital Medical Records [address] [place] [address] Heather Villa MD Social History Tobacco Use [...] filedocumented in this encounter Care Teams Supervisor Of Guidance And Testing Relationship Specialty Start Date End Date Bhakti Rodgers MD [address] [place] [address] [phone] PCP - General Internal Medicine 07/02/20 documented as of this encounter
--- OUTSIDE RECORDS SUMMARY | 2024-08-13 17:10 | XMS_ITS | Encounter Summary ---
Author Organization [facility] Address [address] [place] [address] Care Team Providers Care Municipal Firefighter Name Role Phone Bhakti Rodgers MD Primary Care Provider [phone] Reason for Visit * Reason Onset Date Comments refill request 07/02/2023 Encounter Details Date Type Department Care Team Description 07/02/2023 Refill Endocrinology - [place] [id number] [place] [address] Caitlin Nash PA-C [address] [place] [address] refill request Social History Tobacco Use Types [...] encounter Miscellaneous Notes * Telephone Encounter - Roxana Groves M.A. - 07/05/2023 8:46 AM EST Bisi 06/09/23 Ov 09/08/23 Lab Results Component Value Date HGBA1C 8.1 05/26/2023 MALBUR 14.9 05/26/2023 MALBCR 6.2 05/26/2023 CHOL 154 05/26/2023 LDL 63 05/26/2023 HDL 37 05/26/2023 TRIG 271 05/26/2023 GLU 141 06/09/2023 CREAT 0.86 05/26/2023 * Telephone Encounter - Tammy Grewal - 07/02/2023 3:40 PM EST Patient would like script to be: E-PRESCRIBED/FAXED TO PHARMACY (THE MEDICATION REQUESTED IS ON THE MED [...] N/A Patients current insurance carrier is: Payor: [facility] FFS / Plan: [facility] MEDICARE PLUS $10 [place] / Product Type: MEDICARE [id number] documented in this encounter Plan of Treatment Not on file documented as of this encounter Visit Diagnoses Diagnosis Type 2 diabetes mellitus with stage 3 chronic kidney disease, with long-term current use of insulin, unspecified whether stage 3a or 3b CKD (HCC) documented in this encounter Care Teams Municipal Firefighter Relationship Specialty Start Date End Date Bhakti Rodgers MD [address] [place] [address] PCP - General Internal Medicine 07/02/20 documented as of this encounter
--- OUTSIDE RECORDS SUMMARY | 2024-08-13 17:10 | XMS_ITS | Encounter Summary ---
Author Organization [facility] Address [address] [place] [address] Care Team Providers Care Assistant Scientist Name Role Phone Kizzy Archibald MD Primary Care Provider Jonathan Bhakti Smith MD Primary Care Provider [phone] Encounter Details Date Type Department Care Team Description 06/16/2017 Hospital Medical Records [address] [place] [address] Abstract, Provider Social History Tobacco Use Types [...] on filedocumented in this encounter Care Teams Assistant Scientist Relationship Specialty Start Date End Date Kizzy Archibald MD PCP - General Internal Medicine 05/29/15 07/01/20 Bhakti Rodgers MD [address] [place] [address] PCP - General Internal Medicine 07/02/20 documented as of this encounter
--- OUTSIDE RECORDS SUMMARY | 2024-08-13 17:10 | XMS_ITS | Encounter Summary ---
Author Organization [facility] Address [address] [place] [address] Care Team Providers Care Fulling Mill Operator Name Role Phone Bhakti Rodgers MD Primary Care Provider [phone] Encounter Details Date Type Department Care Team Description 04/20/2022 Orders Only Medical Records [address] [place] [address] Kizzy Andrea MD [address] [place] [address] Social History Tobacco Use Types Packs/Day Years [...] on filedocumented in this encounter Care Teams Fulling Mill Operator Relationship Specialty Start Date End Date Bhakti Rodgers MD [address] [place] [address] PCP - General Internal Medicine 07/02/20 documented as of this encounter
--- OUTSIDE RECORDS SUMMARY | 2024-08-13 17:10 | XMS_ITS | Encounter Summary ---
Author Organization [facility] Address [address] [place] [address] Care Team Providers Care Account Resolution Expert Name Role Phone Bhakti Rodgers MD Primary Care Provider [phone] Encounter Details Date Type Department Care Team Description 08/16/2023 Orders Only Medical Records [address] [place] [address] Ariella Cooley Social History Tobacco Use Types [...] on filedocumented in this encounter Care Teams Account Resolution Expert Relationship Specialty Start Date End Date Bhakti Rodgers MD [address] [place] [address] PCP - General Internal Medicine 07/02/20 documented as of this encounter
--- OUTSIDE RECORDS SUMMARY | 2024-08-13 17:10 | XMS_ITS | Encounter Summary ---
Author Organization [facility] Address [address] [place] [address] Care Team Providers Care Transit Worker Name Role Phone Kizzy Archibald MD Primary Care Provider Jonathan Bhakti Smith MD Primary Care Provider [phone] Encounter Details Date Type Department Care Team Description 11/21/2019 Home Health Certification Medical Records [address] [place] [address] Social History Tobacco Use Types Packs/Day Years [...] on filedocumented in this encounter Care Teams Transit Worker Relationship Specialty Start Date End Date Kizzy Archibald MD PCP - General Internal Medicine 05/29/15 07/01/20 Bhakti Rodgers MD [address] [place] [address] PCP - General Internal Medicine 07/02/20 documented as of this encounter
--- OUTSIDE RECORDS SUMMARY | 2024-08-13 17:10 | XMS_ITS | Encounter Summary ---
Author Organization [facility] Address [address] [place] [address] Care Team Providers Care Hr Representative Name Role Phone Bhakti Rodgers MD Primary Care Provider [phone] Encounter Details Date Type Department Care Team Description 07/23/2022 Hospital Medical Records [address] [place] [address] Royce Prakash Social History Tobacco Use Types Packs/Day Years [...] on filedocumented in this encounter Care Teams Hr Representative Relationship Specialty Start Date End Date Bhakti Rodgers MD [address] [place], [place] [phone] PCP - General Internal Medicine 07/02/20 documented as of this encounter
--- OUTSIDE RECORDS SUMMARY | 2024-08-13 17:10 | XMS_ITS | Encounter Summary ---
Author Organization [facility] Address [address] [place] [address] Care Team Providers Care Investment Consultant Name Role Phone Bhakti Rodgers MD Primary Care Provider [phone] Encounter Details Date Type Department Care Team Description 02/03/2022 Hospital Medical Records [address] [place] [address] Joel Esquivel MD Social History Tobacco Use [...] on filedocumented in this encounter Care Teams Investment Consultant Relationship Specialty Start Date End Date Bhakti Rodgers MD [address] [place] [address] PCP - General Internal Medicine 07/02/20 documented as of this encounter
--- OUTSIDE RECORDS SUMMARY | 2024-08-13 17:10 | XMS_ITS | Encounter Summary ---
Author Organization [facility] Address [address] [place] [address] Care Team Providers Care Dining Chair Seat Cushion Trimmer Name Role Phone Kizzy Archibald MD Primary Care Provider Bhakti Hickey MD Primary Care Provider [phone] Reason for Visit * Reason Onset Date Comments TEST RESULTS 09/27/2019 Encounter Details Date Type Department Care Team Description 09/27/2019 Telephone Adult Medicine [address] [address] Caitlin Nash PA-C [address] [place] [address] TEST RESULTS Social History Tobacco Use Types Packs/Day Years [...] encounter Miscellaneous Notes * Telephone Encounter - Merari Neves M.A. - 09/27/2019 10:27 AM EDT Left message to call back, Please transfer to [phone] * Telephone Encounter - Merari Neves M.A. - 09/27/2019 10:27 AM EDT ----- Message from Caitlin Nash PA-C sent at 09/26/2019 3:52 PM EDT ----- Needs dm and thyroid follow up. Okay video or audio. documented in this encounter Plan of Treatment Not on file documented as of this encounter Visit Diagnoses Not on filedocumented in this encounter Care Teams Dining Chair Seat Cushion Trimmer Relationship Specialty Start Date End Date Kizzy Archibald MD PCP - General Internal Medicine 05/29/15 07/01/20 Bhakti Rodgers MD [address] [place] [address] PCP - General Internal Medicine 07/02/20 documented as of this encounter
--- OUTSIDE RECORDS SUMMARY | 2024-08-13 17:10 | XMS_ITS | Encounter Summary ---
Author Organization [facility] Address [address] [place] [address] Care Team Providers Care Flexographic Press Set Up Operator Name Role Phone Kizzy Archibald MD Primary Care Provider Jonathan Bhakti Smith MD Primary Care Provider [phone] Encounter Details Date Type Department Care Team Description 09/21/2016 Telephone Adult Medicine - [place] [address] [place] [address] Dylan Patton MD [address] [place] [address] Social History Tobacco Use Types Packs/Day Years [...] on filedocumented in this encounter Care Teams Flexographic Press Set Up Operator Relationship Specialty Start Date End Date Kizzy Archibald MD PCP - General Internal Medicine 05/29/15 07/01/20 Bhakti Rodgers MD [address] [place] [address] PCP - General Internal Medicine 07/02/20 documented as of this encounter
--- OUTSIDE RECORDS SUMMARY | 2024-08-13 17:10 | XMS_ITS | Encounter Summary ---
Author Organization [facility] Address [address] [place] [address] Care Team Providers Care Uniformer Name Role Phone Kzizy Archibald MD Primary Care Provider Bhakti Hickey MD Primary Care Provider [phone] Reason for Visit * Reason Onset Date Comments Pre-visit Diabetes Lab Adult Medicine 04/10/202004/19 Encounter Details Date Type Department Care Team Description 04/10/2020 Telephone Endocrinology - [address] [address] Caitlin Nash PA-C [address] [place] [address] Pre-visit Diabetes Lab Adult Medicine (04/19) Social History Tobacco Use Types Packs/Day Years [...] * Telephone Encounter - Diandra Banda - 04/10/2020 9:50 AM EST Sent patient an email advising them to complete diabetic lab work at least three days prior to their upcoming appointment. documented in this encounter Plan of Treatment Not on file documented as of this encounter Visit Diagnoses Not on filedocumented in this encounter Care Teams Uniformer Relationship Specialty Start Date End Date Kizzy Archibald MD PCP - General Internal Medicine 05/29/15 07/01/20 Bhakti Rodgers MD [address] [place] [address] PCP - General Internal Medicine 07/02/20 documented as of this encounter
--- OUTSIDE RECORDS SUMMARY | 2024-08-13 17:10 | XMS_ITS | Encounter Summary ---
Author Organization [facility] Address [address] [place] [address] Care Team Providers Care Author Agent Name Role Phone Bhakti Rodgers MD Primary Care Provider [phone] Encounter Details Date Type Department Care Team Description 07/15/2022 Hospital Medical Records [address] [place] [address] [facility] Social History Tobacco Use Types [...] on filedocumented in this encounter Care Teams Author Agent Relationship Specialty Start Date End Date Bhakti Rodgers MD [address] [place] [address] PCP - General Internal Medicine 07/02/20 documented as of this encounter
--- OUTSIDE RECORDS SUMMARY | 2024-08-13 17:10 | XMS_ITS | Encounter Summary ---
Author Organization [facility] Address [address] [place] [address] Care Team Providers Care Transit Clerk Name Role Phone Kizzy Archibald MD Primary Care Provider Bhakti Hickey MD Primary Care Provider [phone] Reason for Visit * Reason Onset Date Comments REFERRAL 06/16/2019 Encounter Details Date Type Department Care Team Description 06/16/2019 Telephone Adult Medicine [address] [address] Kizzy Archibald MD REFERRAL Social History Tobacco Use Types Packs/Day Years [...] encounter Miscellaneous Notes * Telephone Encounter - Enedelia Schroeder - 06/16/2019 3:38 PM EST No insurance referral required per patient's insurance. hne * Telephone Encounter - Dedra Nikos - 06/16/2019 3:22 PM EST Request for a referral to a Cara Specialist for a patient with a Cara PCP. If patient does NOT have a Cara PCP they must obtain a referral from their PCP before being seen-do not submit request to Referrals department-contact patient. Specialty patient is being referred to: endo Name of Specialist patient is seeing: Miriam tomas Reason/diagnosis for visit: Hypothyriosim Date of appoinment: 06/21/19 If retro, date referral needs to start: brian Marshall Payor: [facility] FFS / Plan: [facility] MEDICARE PLUS $15 [place] / Product Type: MEDICARE [id number] documented in this encounter Plan of Treatment Not on file documented as of this encounter Visit Diagnoses Not on filedocumented in this encounter Care Teams Transit Clerk Relationship Specialty Start Date End Date Kizzy Archibald MD PCP - General Internal Medicine 05/29/15 07/01/20 Bhakti Rodgers MD [address] [place] [address] PCP - General Internal Medicine 07/02/20 documented as of this encounter
--- OUTSIDE RECORDS SUMMARY | 2024-08-13 17:10 | XMS_ITS | Encounter Summary ---
Author Organization [facility] Address [address] [place] [address] Care Team Providers Care Medical Physics Teacher Name Role Phone Bhakti Rodgers MD Primary Care Provider [phone] Encounter Details Date Type Department Care Team Description 12/21/2023 Refill Medicine/Pediatrics - [address] [phone] Caitlin Nash PA-C [address] [place] [address] Social History Tobacco Use Types Packs/Day Years [...] Miscellaneous Notes * Telephone Encounter - Maryann Clinton L.P.N. - 12/21/2023 2:51 PM EDT Last visit 11/18/23 Next 02/02/24 Lab Results Component Value Date HGBA1C 8.2 09/17/2023 MALBUR 14.9 05/26/2023 MALBCR 6.2 05/26/2023 CHOL 154 05/26/2023 LDL 63 05/26/2023 HDL 37 05/26/2023 TRIG 271 05/26/2023 GLU 224 11/18/2023 CREAT 0.98 09/17/2023 documented in this encounter Plan of Treatment Not on file documented as of this encounter Visit Diagnoses Diagnosis Diabetes mellitus type 2 with neurological manifestations (HCC) Type II or unspecified type diabetes mellitus with neurological manifestations, not stated as uncontrolled documented in this encounter Care Teams Medical Physics Teacher Relationship Specialty Start Date End Date Bhakti Rodgers MD [address] [place] [address] PCP - General Internal Medicine 07/02/20 documented as of this encounter
--- OUTSIDE RECORDS SUMMARY | 2024-08-13 17:10 | XMS_ITS | Encounter Summary ---
Author Organization [facility] Address [address] [place] [address] Care Team Providers Care Quality Project Manager Name Role Phone Bhakti Rodgers MD Primary Care Provider [phone] Encounter Details Date Type Department Care Team Description 06/30/2022 Business Doc Medical Records [address] [place] [address] Abstract, Provider Social History Tobacco Use Types [...] on filedocumented in this encounter Care Teams Quality Project Manager Relationship Specialty Start Date End Date Bhakti Rodgers MD [address] [place] [address] [phone] PCP - General Internal Medicine 07/02/20 documented as of this encounter
--- OUTSIDE RECORDS SUMMARY | 2024-08-13 17:10 | XMS_ITS | Encounter Summary ---
Author Organization [facility] Address [address] [place] [address] Care Team Providers Care Burn Crew Member Name Role Phone Bhakti Rodgers MD Primary Care Provider [phone] Reason for Visit * Reason Onset Date Comments medication problems 06/14/2023 Encounter Details Date Type Department Care Team Description 06/14/2023 Telephone Endocrinology - [place] [address] [place] [address] Caitlin Nash PA-C [address] [place] [address] medication problems Social History Tobacco Use Types [...] for alternative * Telephone Encounter - Ericka Mckinley - 06/14/2023 9:46 AM EST Who is calling? The patient Name of the medication Solostar & Mounjaro What is the specific problem or interaction? Per patient insurance will not cover medications. She said [facility] has them on hold. If the patient is having a problem with taking the med - how long has the problem been going on? N/A documented in this encounter Plan of Treatment Not on file documented as of this encounter Visit Diagnoses Not on filedocumented in this encounter Care Teams Burn Crew Member Relationship Specialty Start Date End Date Bhakti Rodgers MD [address] [place] [address] PCP - General Internal Medicine 07/02/20 documented as of this encounter
--- OUTSIDE RECORDS SUMMARY | 2024-08-13 17:10 | XMS_ITS | Encounter Summary ---
Author Organization [facility] Address [address] [place] [address] Care Team Providers Care Marketing Communications Manager Name Role Phone Kizzy Archibald MD Primary Care Provider Jonathan Bhakti Smith MD Primary Care Provider [phone] Encounter Details Date Type Department Care Team Description 10/31/2015 Public Relations Supervisor Report Medical Records [address] [place] [address] Social History Tobacco Use Types Packs/Day Years [...] on filedocumented in this encounter Care Teams Marketing Communications Manager Relationship Specialty Start Date End Date Kizzy Archibald MD PCP - General Internal Medicine 05/29/15 07/01/20 Bhakti Rodgers MD [address] [place] [address] PCP - General Internal Medicine 07/02/20 documented as of this encounter
--- OUTSIDE RECORDS SUMMARY | 2024-08-13 17:10 | XMS_ITS | Encounter Summary ---
Author Organization [facility] Address [address] [place] [address] Care Team Providers Care Behavior Analyst Name Role Phone Bhakti Rodgers MD Primary Care Provider [phone] Encounter Details Date Type Department Care Team Description 01/26/2022 Hospital Medical Records [address] [place] [address] Charmaine Horan Social History Tobacco Use Types Packs/Day Years [...] on filedocumented in this encounter Care Teams Behavior Analyst Relationship Specialty Start Date End Date Bhakti Rodgers MD [address] [place] [address] PCP - General Internal Medicine 07/02/20 documented as of this encounter
--- OUTSIDE RECORDS SUMMARY | 2024-08-13 17:10 | XMS_ITS | Encounter Summary ---
Author Organization [facility] Address [address] [place] [address] Care Team Providers Care Perfect Binder Operator Name Role Phone Bhakti Rodgers MD Primary Care Provider [phone] Encounter Details Date Type Department Care Team Description 05/28/2023 Orders Only Medical Records [address] [place] [address] Allen Baeza MD Social History Tobacco Use [...] Baeza MD CARDIOLOGY * OUTSIDE CT (04/28/2023) [facility] [place] RADIOLOGY * OUTSIDE MRI/MRA (04/28/2023) Maninder Rojo PA-C RADIOLOGY documented in this encounter Visit Diagnoses Not on filedocumented in this encounter Care Teams Perfect Binder Operator Relationship Specialty Start Date End Date Bhakti Rodgers MD [address] [place] [address] PCP - General Internal Medicine 07/02/20 documented as of this encounter
--- OUTSIDE RECORDS SUMMARY | 2024-08-13 17:10 | XMS_ITS | Encounter Summary ---
Author Organization [facility] Address [address] [place] [address] Care Team Providers Care Trade Union Official Name Role Phone Bhakti Rodgers MD Primary Care Provider Encounter Details Date Type Department Care Team Description 01/28/2022 Hospital Medical Records [address] [place] [address] Angeline Corcoran PA-C Social History Tobacco Use [...] on filedocumented in this encounter Care Teams Trade Union Official Relationship Specialty Start Date End Date Bhakti Rodgers MD [address] [place] [address] [phone] PCP - General Internal Medicine 07/02/20 documented as of this encounter
--- OUTSIDE RECORDS SUMMARY | 2024-08-13 17:10 | XMS_ITS | Clinical Summary ---
Author Organization [facility] Address [address] [place] [address] Phone Care Team Providers Care Lower In Supervisor Name Role Phone Bhakti Rodgers MD Primary Care Provider [phone] Allergies Active Allergy Reactions Criticality Noted Date Comments Azithromycin Hives 06/11/2015 Metformin Diarrhea High 10/18/2018 Medications ammonium lactate (AMLACTIN) 12 % cream Apply topically as needed for dry skin. Active aspirin 81 mg chewable tablet Chew 1 tablet (81 mg total) by mouth daily. Active melatonin 3 mg tablet Take by mouth every night at bedtime. Active gabapentin (NEURONTIN) 100 mg capsule TAKE 1 CAPSULE BY MOUTH THREE TIMES DAILY 270 capsule 1 03/24/20 24 Active cholecalciferol (VITAMIN D-3) 25 mcg (1,000 unit) capsule Take 1 capsule (1,000 Units total) by mouth 1 (one) time each day. Active cloNIDine (CATAPRES) 0.1 mg tablet TAKE 1 TABLET BY MOUTH THREE TIMES DAILY 270 tablet 07/06/19 25 Active levothyroxine (SYNTHROID, LEVOTHROID) 125 mcg tablet Take 1 tablet by mouth once daily 90 tablet 07/06/19 25 Active simvastatin (ZOCOR) 20 mg tablet TAKE 1 TABLET BY MOUTH AT BEDTIME 90 tablet 07/06/19 25 Active divalproex (DEPAKOTE) [address] tablet Take 1 tablet (125 mg total) by mouth 3 (three) times a day. Do not crush, chew, or split. Active clotrimazole (LOTRIMIN) 1 % cream Apply topically 2 (two) times a day. 30 g 2 07/13/19 25 Active insulin glargine (Lantus Solostar U-100 Insulin) 100 unit/mL (3 mL) injection pen 60 units SC BID 45 mL 11 07/19/19 25 Active insulin lispro (HumaLOG KwikPen Insulin) 100 unit/mL injection pen Inject three times a day BEFORE meals per scale: 100-125: 4 units; 126-150: 17 units; 151-200: 22 units; 201-250: 24 units; 251-300: 27 units; 301-350: 32 units; 351-400: 37 units 45 mL 07/26/19 25 Active BD Ultra-Fine Micro Pen Needle 32 gauge x 1/4 needleIndicatio ns:Type 2 diabetes mellitus with stage 3 chronic kidney disease, with long-term current use of insulin, unspecified whether stage 3a or 3b CKD ([facility]) USE 1 PEN NEEDLE TO INJECT INSULIN 5 TIMES A DAY 500 each 07/27/19 25 Active insulin glargine (Lantus Solostar U-100 Insulin) 100 unit/mL (3 mL) injection pen INJECT 52 UNITS SUBCUTANEOUSLY IN THE MORNING AND 52 UNITS AT NIGHT 11/18/19 24 025 Discontin ued(Reord er) insulin lispro (HumaLOG KwikPen Insulin) 100 unit/mL injection pen Inject three times a day BEFORE meals per scale: 100-125: 7 units; 126-150: 12 units; 151-200: 17 units; 201-250: 19 units; 251-300: 22 units; 301-350: 27 units; 351-400: 32 units 11/18/19 24 025 Discontin ued(Reord er) insulin lispro (HumaLOG KwikPen Insulin) 100 unit/mL injection pen Inject three times a day BEFORE meals per scale: 100-125: 4 units; 126-150: 17 units; 151-200: 22 units; 201-250: 24 units; 251-300: 257 units; 301-350: 32 units; 351-400: 37 units 45 mL 07/19/19 25 025 Discontin ued(Reord er) Active Problems Problem Noted Date Diagnosed Date Depression 07/06/2024 Controlled type 2 diabetes mellitus with catarac t 11/27/2020 Pulmonary nodules 09/13/2020 Type II diabetes mellitus with renal manifestati ons 09/28/2019 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 Overview (07/06/2024): 2018 and 06/30 episodes Hypercholesteremia Hypertension Hypothyroidism Malignant catatonia Overview (07/06/2024): : Avoid triptans, SSRIs, bupropion Osteoarthritis of left knee KUMAR (obstructive sleep apnea) Neurodermatitis Encounters Date Type Department Care Team Description 08/07/2024 Telephone Adult Medicine [address] [phone] Ella Dobson MA Medication Problem 07/19/[address] [phone] Caitlin Nash PA Medication Problem 07/18/2024 8:30 AM EDT Office Visit [address] [phone] Caitlin Nash PA Type 2 diabetes mellitus with stage 3 chronic kidney disease, with long-term current use of insulin, unspecified whether stage 3a or 3b CKD (CMS/HCC) (Primary Dx); Primary hypertension; Hypothyroidism due to acquired atrophy of thyroid 07/14/2024 Telephone Adult [address] [phone] Bhakti Rodgers MD Labs Only 07/12/2024 8:45 AM EST Office Visit Adult [address] [phone] Bhakti Rodgers MD Primary hypertension (Primary Dx); Hypothyroidism due to acquired atrophy of thyroid; Type 2 diabetes mellitus with stage 3 chronic kidney disease, with long-term current use of insulin, unspecified whether stage 3a or 3b CKD (CMS/HCC); Hypercholesteremia; Candidal dermatitis 05/30/2024 Telephone Adult Medicine [address] [phone] Devi Luther, HOUSEKEEPING COORDINATOR follow up 05/17/2024 9:15 AM EST Office Visit [facility] Hematology Oncology [address] [place] [address] Eddie De Leon MD Phyllodes tumor of breast (Primary Dx); Pulmonary nodules from Last 3 Months Immunizations Name Administration Dates Next Due Influenza Quadravalent, 0.5m l (Fluzone High-dose) 65yo and older 03/16/2020 Influenza Quadravalent, MDCK , 0.5ml, with preservative (Flucelvax) 6mo and older 04/08/2017 Influenza trivalent, 0.5mL ( Fluad) 65yo and older 07/12/2024 Influenza trivalent, 0.5mL ( Fluzone High-dose) 65yo and older 02/22/2023,02/07/2022,02/26/2021,03/22,01/19/2018 Influenza trivalent, 0.5mL, preservative free (Fluarix; FluLaval; Fluzone) ages 6mo and older (Afluria) 3 years and older 01/30/2024 Influenza trivalent, with pr eservative (Fluzone; Afluria) 6mo and older 03/10/2016,04/24/2015 GraphSQL SARS-CoV-2 COVID-19, mRNA, LNP-S, preservative free 08/21/2020 Pneumococcal conjugate 13 va lent (Prevnar 13, PCV13) 2mo and older 10/15/2017 Pneumococcal polysaccharide 23 valent (Pneumovax 23) 2yo and older 06/29/2022,12/19/2015,06/05/2015 Td Tetanus diptheria, preser vative free (Tenivac) 7yo and older 06/29/2022 Zoster Live 01/28/2016 Zoster recombinant (Shingrix ) 19yo and older 10/02/2020,09/14/2020,08/03/2020 Surgical History Surgery Date Site/Laterality Comments CHOLECYSTECTOMY 1985 SECTION 1980, 1984 CATARACT EXTRACTION 02/24/19, 03/09/19 Bilateral bilateral BREAST BIOPSY 03/2019 lt breast bx-breast ca-tumor MASTECTOMY 05/10/2019 Left Medical History Medical History Date Comments Hypertension Depression DX:Depression Hypercholesteremia Hypothyroidism Osteoarthritis of left knee Neurodermatitis 07/22/2015 Hemiplegic migraine 07/24/2020 2018 and 2/2 1 episodes KUMAR (obstructive sleep apnea) 04/13/2022 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 : Avoid triptans, SSRIs, bupropion Breast cancer Family History Medical History Relation Name Comments Alcohol/Drug Daughter Lung cancer Mother diabetes, depre ssion Breast cancer Neg Hx Colon cancer Neg Hx Ovarian cancer Neg Hx Uterine cancer Neg Hx Relation Name Status Comments Daughter Father Maternal Grandfather Maternal Grandmother Mother Paternal Grandfather Paternal Grandmother Social History Tobacco Use Types Packs/Day Years [...] Orientation Straight 03/15/2024 8: 34 AM EST Obstetrics History Para Term AB IAB SAB Ectopic Multiple Livin g Live Births 2 Last Filed Vital Signs Vital Sign Reading Time Taken Comments Blood Pressure 102/60 07/18/2024 8:34 AM EDT C Pulse 81 07/18/2024 8:34 AM EDT Temperature 36.4 ??C (97.6 ??F) 07/18/2024 8:34 AM ED T Respiratory Rate 16 07/12/2024 8:47 AM EST Oxygen Saturation 95% 07/18/2024 8:34 AM EDT Inhaled Oxygen Concentration - - Weight 112 kg (248 lb) 07/18/2024 8:34 AM EDT Height 162.6 cm (5' 4 ) 07/18/2024 8:34 AM EDT Body Mass Index 42.57 07/18/2024 8:34 AM EDT Plan of Treatment Upcoming Encounters Date Type Department Care Team (Late st Contact Info) Description 11/03/2024 8:30 AM EDT Office Visit Endocrinology [address] [phone] Caitlin Nash PA [address] [place] [address] 11/22/2024 9:00 AM EDT Office Visit [facility] Hematology Oncology [address] [place] [address] Eddie De Leon MD [address] [place] [address] Health Maintenance Due Date Last Done Comments Diabetes: Annual Foot Exam 1962 Diabetes: Annual Retina Eye Exam 1962 RSV Immunization Adult Patients (1 - Risk 60-74 years 1-dose series) 2012 COVID-19 Vaccine (3 - Pfizer risk series) 10/12/2020 09/14/2020, 08/21/2020 Colorectal Cancer Screening: Colonoscopy 04/18/2022 Depression Screening 04/18/2022 Falls Risk Assessment 04/18/2022 Hepatitis C Screening 04/18/2022 Medicare Annual Wellness Visit 04/18/2022 Social Influencers of Health Screening 04/18/2022 Diabetes: Blood Sugar Control Test (HGBA1C) 01/14/2025 07/14/2024, 01/12/2024, 09/17/2023 Diabetes: Annual Urine Albumin-Creatinine Ratio (uACR) 07/14/2025 07/14/2024 Diabetes: Annual GFR (Glomerular Filtration Rate) 07/14/2025 07/14/2024, 09/17/2023, 08/05/2022, Additional history exists Hypertension/CHF/CAD Annual BMP Blood Test 07/14/2025 07/14/2024, 09/17/2023, 08/05/2022, Additional history exists Breast Cancer Screening 04/24/2026 04/24/20, 02/11/2021, 02/03/2021, Additional history exists Cholesterol Screening (Lipid Panel) 07/14/2029 07/14/2024 DTaP,Tdap,and Td Vaccines (2 - Td or Tdap) 06/29/2032 06/29/2022 Osteoporosis Screening (Bone Density Screening) 07/03/2035 07/03/2020, 11/24/2017 Zoster Vaccines Completed 10/02/2020, 05/0 12/2020, 08/03/2020, Additional history exists Pneumococcal Vaccine: 50+ Years Completed 06/29/2022, 10/15/2017, 12/19/2015, Additional history exists Influenza Vaccine Completed 07/12/2024, , 02/22/2023, Additional history exists HIB Vaccines Aged Out [...] patient's age to complete this topic Meningococcal B Vacine Aged Out No lo nger eligible based on patient's age to complete this topic RSV Immunization Patients Under 20 months Aged Out No longer eligible based on patient's age to complete this topic Varicella Vaccines Aged Out No longer eligible based on patient's age to complete this topic Procedures Procedure Name Priority Date/Time Associated Diagnosis Comments POC GLUCOSE Routine 07/18/2024 8:37 AM EDT Type 2 diabetes mellitus with stage 3 chronic kidney disease, with long-term current use of insulin, unspecified whether stage 3a or 3b CKD (CMS/HCC) COMPREHENSIVE METABOLIC PANEL Routine 07/14/2024 10:36 AM EST Type 2 diabetes mellitus with stage 3 chronic kidney disease, with long-term current use of insulin, unspecified whether stage 3a or 3b CKD (CMS/HCC) Hypercholesteremia Primary hypertension MICROALBUMIN CREATININE URINE RATIO Routine 07/14/2024 10:36 AM EST Type 2 diabetes mellitus with stage 3 chronic kidney disease, with long-term current use of insulin, unspecified whether stage 3a or 3b CKD (CMS/HCC) Hypercholesteremia Primary hypertension HEMOGLOBIN A1C Routine 07/14/2024 10:36 AM EST Type 2 diabetes mellitus with stage 3 chronic kidney disease, with long-term current use of insulin, unspecified whether stage 3a or 3b CKD (CMS/HCC) Hypercholesteremia Primary hypertension LIPID PANEL WITH REFLEX TO DIRECT LDL Routine 07/14/2024 10:36 AM EST Type 2 diabetes mellitus with stage 3 chronic kidney disease, with long-term current use of insulin, unspecified whether stage 3a or 3b CKD (CMS/HCC) Hypercholesteremia Primary hypertension MG MAMMO DIGITAL SCREENING W DIMA RIGHT Routine 04/24/2024 9:53 AM EST Encounter for screening mammogram for breast cancer DXA BONE DENSITY STUDY 1+ SITS AXIAL SKEL Routine 07/03/2020 9:59 AM EST Encounter for prophylactic measures, unspecified from Last 3 Months or Most Recently Relevant to Health Maintenance Results * POC glucose manually resulted (07/18/2024 8:37 AM EDT) [facility] Glucose POC 168 mg/dL Comment:Non fasting Blood Capillary blood specimen / Unknown 07/18/2024 8:37 AM EDT Caitlin MORE POINT OF CARE TEST ENTER/ED IT ORDERABLES Final Result * (ABNORMAL) Lipid panel with reflex to direct LDL (07/14/2024 10:36 AM EST) Cholesterol 128 0 - 200 mg/dL LAB CHEMISTRY METHOD 07/14/2024 6:04 PM [facility] Triglycerides 220(H) 0 - 150 mg/dL LAB CHEMISTRY METHOD 07/14/2024 6:04 PM [facility] HDL 33(L) >=40 mg/dL LAB CHEMISTRY METHOD 07/14/2024 6:04 PM [facility] LDL Calculated 51 0 - 100 mg/dL LAB CHEMISTRY METHOD 07/14/2024 6:04 PM [facility] VLDL Cholesterol Leroy 44 mg/dL LAB CHEMISTRY METHOD 07/14/2024 6:04 PM [facility] Non HDL Chol. (LDL+VLDL) 95 <145 mg/dL LAB CHEMISTRY METHOD 07/14/2024 6:04 PM [facility] Chol/HDL Ratio 3.9 0.0 - 4.4 LAB CHEMISTRY METHOD 07/14/2024 6:04 PM [facility] Blood Venous blood specimen / Unknown Venipuncture / Unknown 07/14/2024 10:36 AM EST 07/14/2024 10:36 AM EST Bhakti Rodgers MD LAB BLOOD ORDERABLES Final Resul t Performing Organization Address [facility]/ZIP Co de Phone Number [facility] [address] [place] [address], [place] [phone] * Microalbumin creatinine urine ratio (07/14/2024 10:36 AM EST) Creatinine, Urine 124.0 mg/dL LAB CHEMISTRY METHOD 07/14/2024 2:05 PM [facility] Microalb, Ur 7.1 0.0 - 29.0 mg/L LAB CHEMISTRY METHOD 07/14/2024 2:05 PM [facility] Microalb/Creat Ratio 6 <30 mg/g creat LAB CHEMISTRY METHOD 07/14/2024 2:05 PM [facility] Urine Urine specimen obtained by clean catch procedure / Unknown Non-blood Collection / Unknown 07/14/2024 10:36 AM EST 07/14/2024 10:36 AM EST us Bhakti Rodgers MD LAB URINE ORDERABLES Final Resul t Performing Organization Address [facility]/ZIP Co de Phone Number [facility] [address] [place] [address], [place] [phone] * (ABNORMAL) Hemoglobin A1c (07/14/2024 10:36 AM EST) [facility] Hemoglobin A1C 8.9(H) <6.5 % LAB CHEMISTRY METHOD 07/14/2024 2:15 PM [facility] Mean Bld Glu Estim. 209 mg/dL LAB CHEMISTRY METHOD 07/14/2024 2:15 PM [facility] Blood Venous blood specimen / Unknown Venipuncture / Unknown 07/14/2024 10:36 AM EST 07/14/2024 10:36 AM EST us Bhakti Rodgers MD LAB BLOOD ORDERABLES Final Resul t [facility] [address] [place] [address], [place] [phone] * (ABNORMAL) Comprehensive metabolic panel (07/14/2024 10:36 AM EST) [facility] Sodium 138 133 - 145 mmol/L LAB CHEMISTRY METHOD 07/14/2024 6:04 PM [facility] Potassium 5.0 3.5 - 5.5 mmol/L LAB CHEMISTRY METHOD 07/14/2024 6:04 PM [facility] Chloride 102 96 - 110 mmol/L LAB CHEMISTRY METHOD 07/14/2024 6:04 PM [facility] CO2 30 21 - 32 mmol/L LAB CHEMISTRY METHOD 07/14/2024 6:04 PM [facility] Anion Gap 6 3 - 11 LAB CHEMISTRY METHOD 07/14/2024 6:04 PM [facility] Glucose 222(H) 70 - 100 mg/dL LAB CHEMISTRY METHOD 07/14/2024 6:04 PM [facility] BUN 21 5 - 25 mg/dL LAB CHEMISTRY METHOD 07/14/2024 6:04 PM [facility] Creatinine 1.20(H) 0.50 - 1.10 mg/dL LAB CHEMISTRY METHOD 07/14/2024 6:04 PM [facility] eGFR 48(L) >=60 mL/min/1. 73m2 LAB CHEMISTRY METHOD 07/14/2024 6:04 PM [facility] Comment:Calculation based on the??Chronic Kidney Disease Epidemiology Collaboration (CKD-EPI) equation refit??without adjustment for race. BUN/Creatinine Ratio 17.5 LAB CHEMISTRY METHOD 07/14/2024 6:04 PM [facility] Calcium 9.6 8.5 - 10.5 mg/dL LAB CHEMISTRY METHOD 07/14/2024 6:04 PM [facility] AST (SGOT) 56(H) 10 - 42 unit/L LAB CHEMISTRY METHOD 07/14/2024 6:04 PM [facility] ALT (SGPT) 59 10 - 60 unit/L LAB CHEMISTRY METHOD 07/14/2024 6:04 PM [facility] Alkaline Phosphatase 160(H) 42 - 121 unit/L LAB CHEMISTRY METHOD 07/14/2024 6:04 PM [facility] Total Protein 7.3 6.0 - 8.0 g/dL LAB CHEMISTRY METHOD 07/14/2024 6:04 PM [facility] Albumin 3.5 3.2 - 5.0 g/dL LAB CHEMISTRY METHOD 07/14/2024 6:04 PM [facility] Total Bilirubin 1.3 0.0 - 1.4 mg/dL LAB CHEMISTRY METHOD 07/14/2024 6:04 PM [facility] Blood Venous blood specimen / Unknown Venipuncture / Unknown 07/14/2024 10:36 AM EST 07/14/2024 10:36 AM EST us Bahkti Rodgers MD LAB BLOOD ORDERABLES Final Resul t [facility] [address] [place] [address], [place] [phone] * MG Mammo Digital Screening w Dima [...] for biopsy. PQRI CPT II 3342F Code 44063, 30180 PQRI 225 CPT II 7025F TISSUE DENSITY: There are scattered areas of fibroglandular density. (BI-RADS category B) IMPRESSION: Benign. BI-RADS CATEGORY: 2 - BENIGN RECOMMENDATION: Screening bilateral mammogram is recommended in 1 year. Mammo Location: [facility], [facility] for [facility], [address] [place] [id number] -------- FINAL REPORT -------- Dictated By: Isreal Hernadez Dictated Date: 04/26/2024 10:19 ET Assigned Physician: Isreal Hernadez Reviewed and Electronically Signed By: Isreal Hernadez Signed Date: 04/26/2024 10:28 ET Workstation ID: [id number] Transcribed By: Self Edit Transcribed Date: 04/26/2024 [...] and CC projection is performed in the Etheriose 2000-D unit. ??Computer aided detection utilizing the GarageSkins system was utilized. FINDINGS: The breasts are [...] of left breastcancer, treated with mastectomy in 2019. The patient underwent rightbreast biopsy in 2020, pathology benign. COMPARISON: Most recently 04/21/2023 and most remotely 01/25/2020. TECHNIQUE: Full-field digital mammography of the right breast consistingof tomosynthesis in MLO and CC projection is performed in the HotelQuickly 2000-D unit. Computer aided detection utilizing the Angry Citizenystem was utilized. FINDINGS: The breasts are again [...] for biopsy. PQRI CPT II 3342F Code 17247, 13543 PQRI 225 CPT II 7025F TISSUE DENSITY: There are scattered areas of fibroglandular density.(BI-RADS category B) IMPRESSION: Benign. BI-RADS CATEGORY: 2 - BENIGN RECOMMENDATION: Screening bilateral mammogram is recommended in 1 year. Mammo Location: [facility], [facility], [address] [place] [id number] -------- FINAL REPORT -------- Dictated By: Isreal Hernadez Dictated Date: 04/26/2024 10:19 ET Assigned Physician: Isreal Hernadez Reviewed and Electronically Signed By: Isreal Hernadez Signed Date: 04/26/2024 10:28 ET Workstation ID: [id number] Transcribed By: Self Edit Transcribed Date: 04/26/2024 10:22 ET us Self Referral Sppl IMG BI PROCEDURES Final Resul t * DXA BONE DENSITY STUDY 1+ SITS [...] normal bone density by WHO criteria. The [facility] Department of Internal Medicine recommends using [...] alternative screening schedule based on migdalia Padilla., [facility] May 28, 2011 for patients with osteopenia [...] normal bone density by WHO criteria. The [facility] Department of Internal Medicine recommendsusing National [...] alternative screening schedule based on migdalia Padilla., [facility] for patients with osteopenia (based on hip BMD T-score) is as follows: * advanced osteopenia (T scores -2.00 to -2.49), BMD testing every year * moderate osteopenia (T scores -1.50 to -1.99), BMD testing every 5years mild osteopenia or normal BMD (T scores -1.50 and higher), BMD testingevery 15 years Kizzy Marshall MD IMG DXA PROCEDURES Final Resul t from Last 3 Months or Most Recently Relevant to Health Maintenance Insurance [place] - [place] [employer] [place] Advance Directives Documents on File Type Date Recorded Patient Biomedical Photographer Expl anation Health Care Decision (hx) 01/27/2022 [...] (hx) 01/27/2022 AD MARKHAM DIRECTIVE Care Teams Lower In Supervisor Relationship Specialty Start Date End Date Bhakti Rodgers MD [address] [place] [address] PCP - General Internal Medicine 07/02/20
--- OUTSIDE RECORDS SUMMARY | 2024-08-13 17:10 | XMS_ITS | Encounter Summary ---
Author Organization [facility] Address [address] [place] [address] Care Team Providers Care Installer Helper Name Role Phone Bhakti Rodgers MD Primary Care Provider [phone] Reason for Visit * Reason Onset Date Comments Faxed Order 03/02/2022 Order #[id number] Encounter Details Date Type Department Care Team Description 03/02/2022 Telephone Adult Medicine [address] [phone] Bhakti Rodgers MD [address] [place] [phone] Faxed Order ( Order #[id number]) Social History Tobacco Use Types Packs/Day Years [...] suspected to have Coronavirus/COVID-19? No / Unsure 03/02/2022 2:28 PM EDT documented as of this encounter Miscellaneous Notes * Telephone Encounter - Helena Mckeon - 03/02/2022 8:12 AM EDT Faxed order from [facility], Order #[id number]. Please sign, date, and fax back. documented in this encounter Plan of Treatment Not on file documented as of this encounter Visit Diagnoses Not on filedocumented in this encounter Care Teams Installer Helper Relationship Specialty Start Date End Date Bhakti Rodgers MD [address] [place] [id number] PCP - General Internal Medicine 07/02/20 documented as of this encounter
--- OUTSIDE RECORDS SUMMARY | 2024-08-13 17:10 | XMS_ITS | Encounter Summary ---
Author Organization [facility] Address [address] [place] [address] Care Team Providers Care Ocean Forwarder Name Role Phone Bhakti Rodgers MD Primary Care Provider [phone] Encounter Details Date Type Department Care Team Description 02/10/2022 Hospital Medical Records [address] [place] [id number] Abstract, Provider Social History Tobacco Use Types [...] on filedocumented in this encounter Care Teams Ocean Forwarder Relationship Specialty Start Date End Date Bhakti Rodgers MD [address] [place] [address] [phone] PCP - General Internal Medicine 07/02/20 documented as of this encounter
--- OUTSIDE RECORDS SUMMARY | 2024-08-13 17:10 | XMS_ITS | Encounter Summary ---
Author Organization [facility] Address [address] [place] [address] Care Team Providers Care Marketing Production Coordinator Name Role Phone Bhakti Rodgers MD Primary Care Provider [phone] Reason for Visit * Reason Onset Date Comments Provider Call Back 01/29/2022 Encounter Details Date Type Department Care Team Description 01/29/2022 Telephone Endocrinology - [address] [address] Caitlin Nash PA-C [address] [place] [address] Provider Call Back Social History Tobacco Use [...] for video * Telephone Encounter - Charissa Almendarez - 01/29/2022 9:48 AM EDT Caller requesting call back from provider: Is the caller the patient? YES Reason for call back: Patient was in [facility] 01/22/22 and discharged 01/28/22. She was [...] filedocumented in this encounter Care Teams Marketing Production Coordinator Relationship Specialty Start Date End Date Bhakti Rodgers MD [address] [place] [address] PCP - General Internal Medicine 07/02/20 documented as of this encounter
--- OUTSIDE RECORDS SUMMARY | 2024-08-13 17:10 | XMS_ITS | Encounter Summary ---
Author Organization [facility] Address [address] [place] [address] Care Team Providers Care Cold Roll Inspector Name Role Phone Bhakti Rodgers MD Primary Care Provider [phone] Encounter Details Date Type Department Care Team Description 02/19/2022 Telephone Adult Medicine [address] [phone] Bhakti Rodgers MD [address] [place] [address] [phone] Social History Tobacco Use Types Packs/Day Years [...] Miscellaneous Notes * Telephone Encounter - Ole Camara.P.NMaribell - 02/20/2022 10:59 AM EDT VO given to [facility] at [facility] * Telephone Encounter - Bhakti Rodgers MD - 02/20/2022 10:15 AM EDT Ok for VO; needs to keep appt for signed orders * Telephone Encounter - Ole Harley L.P.N. - 02/20/2022 10:09 AM EDT Patient has an appt with Dr. Rodgers on 02/26 Need VO for PT and nursing Please review and advise Thank you documented in this encounter Plan of Treatment Not on file documented as of this encounter Visit Diagnoses Not on filedocumented in this encounter Care Teams Cold Roll Inspector Relationship Specialty Start Date End Date Bhakti Rodgers MD [address] [place] [id number] PCP - General Internal Medicine 07/02/20 documented as of this encounter
--- OUTSIDE RECORDS SUMMARY | 2024-08-13 17:10 | XMS_ITS | Encounter Summary ---
Author Organization [facility] Address [address] [place] [address] Care Team Providers Care Housing Installer Name Role Phone Bhakti Rodgers MD Primary Care Provider [phone] Encounter Details Date Type Department Care Team Description 07/07/2020 Hospital Medical Records [address] [place] [address] Germán Luevano MD Social History Tobacco Use [...] on filedocumented in this encounter Care Teams Housing Installer Relationship Specialty Start Date End Date Bhakti Rodgers MD [address] [place] [address] [phone] PCP - General Internal Medicine 07/02/20 documented as of this encounter
--- OUTSIDE RECORDS SUMMARY | 2024-08-13 17:10 | XMS_ITS | Encounter Summary ---
Author Organization [facility] Address [address] [place] [address] Care Team Providers Care Mixer Operator Tablets Name Role Phone Kizzy Archibald MD Primary Care Provider Jonathan Bhakti Smith MD Primary Care Provider [phone] Encounter Details Date Type Department Care Team Description 11/10/2019 Hospital Medical Records [address] [place], [place] [phone] Fer Noe MD [address] [place] [address] Social History Tobacco Use Types Packs/Day Years [...] on filedocumented in this encounter Care Teams Mixer Operator Tablets Relationship Specialty Start Date End Date Kizzy Archibald MD PCP - General Internal Medicine 05/29/15 07/01/20 Bhakti Rodgers MD [address] [place] [address] [phone] PCP - General Internal Medicine 07/02/20 documented as of this encounter
--- OUTSIDE RECORDS SUMMARY | 2024-08-13 17:10 | XMS_ITS | Encounter Summary ---
Author Organization [employer] [facility] Address [address] [place] [address] Care Team Providers Care Drivability Technician Name Role Phone Bhakti Rodgers MD Primary Care Provider [phone] Encounter Details Date Type Department Care Team Description 05/19/2023 Orders Only Medical Records [address] [place] [address] Eddie De Leon MD Social History Tobacco [...] on filedocumented in this encounter Care Teams Drivability Technician Relationship Specialty Start Date End Date Bhakti Rodgers MD [address] [place] [address] [phone] PCP - General Internal Medicine 07/02/20 documented as of this encounter
--- OUTSIDE RECORDS SUMMARY | 2024-08-13 17:10 | XMS_ITS | Encounter Summary ---
Author Organization [facility] Address [address] [place] [address] Care Team Providers Care Business Broker Name Role Phone Kizzy Archibald MD Primary Care Provider Jonathan Bhakti Smith MD Primary Care Provider [phone] Encounter Details Date Type Department Care Team Description 06/09/2019 [facility] Medical Records [address] [place] [address] Josiah Cooney MD [address] [place] [address] [phone] Social History Tobacco Use Types Packs/Day Years [...] on filedocumented in this encounter Care Teams Business Broker Relationship Specialty Start Date End Date Kizzy Archibald MD PCP - General Internal Medicine 05/29/15 07/01/20 Bhakti Rodgers MD [address] [place] [address] PCP - General Internal Medicine 07/02/20 documented as of this encounter
--- OUTSIDE RECORDS SUMMARY | 2024-08-13 17:10 | XMS_ITS | Encounter Summary ---
Author Organization [facility] Address [address] [place] [address] Care Team Providers Care Machine Group Leader Name Role Phone Bhakti Rodgers MD Primary Care Provider [phone] Reason for Visit * Reason Onset Date Comments VNA Call 08/04/2022 Encounter Details Date Type Department Care Team Description 08/04/2022 Telephone Adult Medicine [address] [address] Bhakti Rodgers MD [address] [place] [address] VNA Call Social History Tobacco Use Types [...] on filedocumented in this encounter Care Teams Machine Group Leader Relationship Specialty Start Date End Date Bhakti Rodgers MD [address] [place] [address] PCP - General Internal Medicine 07/02/20 documented as of this encounter
--- OUTSIDE RECORDS SUMMARY | 2024-08-13 17:10 | XMS_ITS | Encounter Summary ---
Author Organization [facility] Address [address] [place] [address] Care Team Providers Care Superannuation Funds Manager Name Role Phone Bhakti Rodgers MD Primary Care Provider [phone] Encounter Details Date Type Department Care Team Description 08/04/2023 Hospital Medical Records [address] [place] [address] Ariella Cooley Social History Tobacco Use Types [...] on filedocumented in this encounter Care Teams Superannuation Funds Manager Relationship Specialty Start Date End Date Bhakti Rodgers MD [address] [place] [address] [phone] PCP - General Internal Medicine 07/02/20 documented as of this encounter
--- OUTSIDE RECORDS SUMMARY | 2024-08-13 17:10 | XMS_ITS | Encounter Summary ---
Author Organization [facility] Address [address] [place] [address] Care Team Providers Care Energy Crop Farmer Name Role Phone Bhakti Rodgers MD Primary Care Provider [phone] Reason for Visit * Reason Onset Date Comments Faxed Order 05/19/2023 [facility] - [id number], [id number], [id number], [id number] Encounter Details Date Type Department Care Team Description 05/19/2023 Telephone Adult Medicine [address] [address] Bhakti Rodgers MD [address] [place] [address] [phone] Faxed Order ([facility] - [id number], [id number], [id number], [id number]) Social History Tobacco Use Types Packs/Day Years [...] on filedocumented in this encounter Care Teams Energy Crop Farmer Relationship Specialty Start Date End Date Bhakti Rodgers MD [address] [place] [address] [phone] PCP - General Internal Medicine 07/02/20 documented as of this encounter
--- OUTSIDE RECORDS SUMMARY | 2024-08-13 17:10 | XMS_ITS | Encounter Summary ---
Author Organization [facility] Address [address] [place] [address] Care Team Providers Care Retail Advertising Executive Name Role Phone Kizzy Archibald MD Primary Care Provider Bhakti Hickey MD Primary Care Provider [phone] Encounter Details Date Type Department Care Team Description 04/26/2020 Refill Endocrinology - [address] [address] Caitlin Nash PA-C [address] [place] [address] Social History Tobacco Use Types Packs/Day Years [...] on filedocumented in this encounter Care Teams Retail Advertising Executive Relationship Specialty Start Date End Date Kizzy Archibald MD PCP - General Internal Medicine 05/29/15 07/01/20 Bhakti Rodgers MD [address] [place] [phone] PCP - General Internal Medicine 07/02/20 documented as of this encounter
--- OUTSIDE RECORDS SUMMARY | 2024-08-13 17:10 | XMS_ITS | Encounter Summary ---
Author Organization [facility] Address [address] [place] [address] Care Team Providers Care Label Stamper Name Role Phone Bhakti Rodgers MD Primary Care Provider [phone] Encounter Details Date Type Department Care Team Description 08/06/2023 Orders Only Medical Records [address] [place] [address] Cruzito Moran PA-C Social History Tobacco Use Types Packs/Day [...] on filedocumented in this encounter Care Teams Label Stamper Relationship Specialty Start Date End Date Bhakti Rodgers MD [address] [place] [address] PCP - General Internal Medicine 07/02/20 documented as of this encounter
--- OUTSIDE RECORDS SUMMARY | 2024-08-13 17:10 | XMS_ITS | Encounter Summary ---
Author Organization [facility] Address [address] [place] [address] Care Team Providers Care Forensic Analyst Name Role Phone Bhakti Rodgers MD Primary Care Provider [phone] Encounter Details Date Type Department Care Team Description 12/22/2023 Patient Safety Tech Report Medical Records [address] [place] [address] Delano Johnson PA-C Social History Tobacco Use Types Packs/Day [...] on filedocumented in this encounter Care Teams Forensic Analyst Relationship Specialty Start Date End Date Bhakti Rodgers MD [address] [place] [address] [phone] PCP - General Internal Medicine 07/02/20 documented as of this encounter
--- OUTSIDE RECORDS SUMMARY | 2024-08-13 17:10 | XMS_ITS | Encounter Summary ---
Author Organization [facility] Address [address] [place] [address] Care Team Providers Care Director Auto Name Role Phone Kizzy Archibald MD Primary Care Provider Bhakti Hickey MD Primary Care Provider [phone] Encounter Details Date Type Department Care Team Description 08/12/2019 Telephone Adult Medicine [facility] [address] [place] [address] Ramone Barajas MD Social History Tobacco Use [...] encounter Miscellaneous Notes * Telephone Encounter - Marla Dowell M.A. - 08/14/2019 9:21 AM EDT I called and spoke with patient and she states Dr Barajas was going to increase her Dulaglutide 0.75 MG/0.5ML on 08/02/19. * Telephone Encounter - Ramone Barajsa MD - 08/12/2019 1:52 PM EDT Please contact her re:Dulaglutide it looks to have been DCd documented in this encounter Plan of Treatment Not on file documented as of this encounter Visit Diagnoses Not on filedocumented in this encounter Care Teams Director Auto Relationship Specialty Start Date End Date Kizzy Archibald MD PCP - General Internal Medicine 05/29/15 07/01/20 Bhakti Rodgers MD [address] [place] [address] PCP - General Internal Medicine 07/02/20 documented as of this encounter
--- OUTSIDE RECORDS SUMMARY | 2024-08-13 17:10 | XMS_ITS | Encounter Summary ---
Author Organization [facility] Address [address] [place] [address] Care Team Providers Care Solid Waste Truck Driver Name Role Phone Bhakti Rodgers MD Primary Care Provider [phone] Encounter Details Date Type Department Care Team Description 07/24/2020 Telephone Adult Medicine [address] [phone] Bhakti Rodgers MD [address] [place] [address] [phone] Social History Tobacco Use Types Packs/Day Years [...] on filedocumented in this encounter Care Teams Solid Waste Truck Driver Relationship Specialty Start Date End Date Bhakti Rodgers MD [address] [place] [address] PCP - General Internal Medicine 07/02/20 documented as of this encounter
--- OUTSIDE RECORDS SUMMARY | 2024-08-13 17:10 | XMS_ITS | Encounter Summary ---
Author Organization [facility] Address [address] [place] [address] Care Team Providers Care Casino Operations Supervisor Name Role Phone Bhakti Rodgers MD Primary Care Provider [phone] Reason for Visit * Reason Onset Date Comments Faxed Order 10/18/2023 [facility] order # [id number] # [id number] Encounter Details Date Type Department Care Team Description 10/18/2023 Telephone Adult Medicine [address] [address] Bhakti Rodgers MD [address] [place] [phone] Faxed Order ([facility] order # [id number]/Fx # [id number]) Social History Tobacco Use Types Packs/Day Years [...] encounter Miscellaneous Notes * Telephone Encounter - Ashwini Dyer - 10/18/2023 1:28 PM EDT [facility] order # [id number] Fx # [id number] documented in this encounter Plan of Treatment Not on file documented as of this encounter Visit Diagnoses Not on filedocumented in this encounter Care Teams Casino Operations Supervisor Relationship Specialty Start Date End Date Bhakti Rodgers MD [address] [place] [phone] PCP - General Internal Medicine 07/02/20 documented as of this encounter
--- OUTSIDE RECORDS SUMMARY | 2024-08-13 17:10 | XMS_ITS | Encounter Summary ---
Author Organization [facility] Address [address] [place] [address] Care Team Providers Care Overnight Houseperson Name Role Phone Kizzy Archibald MD Primary Care Provider Bhakti Hickey MD Primary Care Provider Encounter Details Date Type Department Care Team Description 11/09/2019 Telephone General Surgery - [address] [place] [address] Josiah Cooney MD [address] [place] [address] Social History Tobacco Use Types Packs/Day Years [...] encounter Miscellaneous Notes * Telephone Encounter - Maria Elena Buck L.P.N. - 11/09/2019 1:28 PM EDT Having patient come to office for a Wound check * Telephone Encounter - Gracie Jewell - 11/09/2019 12:09 PM EDT Pt called that puss is coming out her surg (Left Mastectomy) that she has on 06/09/2019, she wants to speak to a nurse about whats going on Cb# [phone] documented in this encounter Plan of Treatment Not on file documented as of this encounter Visit Diagnoses Not on filedocumented in this encounter Care Teams Overnight Houseperson Relationship Specialty Start Date End Date Kizzy Archibald MD PCP - General Internal Medicine 05/29/15 07/01/20 Bhakti Rodgers MD [address] [place] [address] PCP - General Internal Medicine 07/02/20 documented as of this encounter
--- OUTSIDE RECORDS SUMMARY | 2024-08-13 17:10 | XMS_ITS | Encounter Summary ---
Author Organization [facility] Address [address] [place] [address] Care Team Providers Care Dance Hall Host/Hostess Name Role Phone Bhakti Rodgers MD Primary Care Provider [phone] Reason for Visit * Reason Onset Date Comments Vna- Intake 05/14/2023 Encounter Details Date Type Department Care Team Description 05/14/2023 Telephone Adult Medicine [facility] [address] [place] [address] Bhakti Rodgers MD [address] [place] [address] [phone] Vna- Intake Social History Tobacco Use Types [...] Dr Rodgers. * Telephone Encounter - Ole LaPMaribellNMaribell - 05/14/2023 11:44 AM EST VO given to Laynie * Telephone Encounter - Bhakti Rodgers MD - 05/14/2023 11:39 AM EST Ok for VO but needs to be seen for signed orders * Telephone Encounter - Ole Harley L.P.N. - 05/14/2023 11:21 AM EST [facility]NA requesting V O for nursing PT and OT Please review and advise Please send response to the VNA pool P [phone] Thank you Was in [facility] transferred to [facility] ([facility] ) Needs a hospital follow up * [...] Was CONTACT Telephone # obtained above?: YES [phone] option 2 Fax #: documented in this encounter Plan of Treatment Not on file documented as of this encounter Visit Diagnoses Not on filedocumented in this encounter Care Teams Dance Hall Host/Hostess Relationship Specialty Start Date End Date Bhakti Rodgers MD [address] [place] [address] PCP - General Internal Medicine 07/02/20 documented as of this encounter
--- OUTSIDE RECORDS SUMMARY | 2024-08-13 17:10 | XMS_ITS | Encounter Summary ---
Author Organization [facility] Address [address] [place] [address] Care Team Providers Care Pipe Fitter Soft Copper Name Role Phone Kizzy Archibald MD Primary Care Provider Jonathan Bhakti Smith MD Primary Care Provider [phone] Encounter Details Date Type Department Care Team Description 11/09/2019 Hospital Medical Records [address] Social History Tobacco Use Types Packs/Day Years [...] on filedocumented in this encounter Care Teams Pipe Fitter Soft Copper Relationship Specialty Start Date End Date Kizzy Archibald MD PCP - General Internal Medicine 05/29/15 07/01/20 Bhakti Rodgers MD [address] [place] [address] PCP - General Internal Medicine 07/02/20 documented as of this encounter
--- OUTSIDE RECORDS SUMMARY | 2024-08-13 17:10 | XMS_ITS | Encounter Summary ---
Author Organization [facility] Address [address] [place] [address] Care Team Providers Care District Claims Manager Name Role Phone Bhakti Rodgers MD Primary Care Provider [phone] Reason for Visit * Reason Onset Date Comments Faxed Order 10/01/2023 Encounter Details Date Type Department Care Team Description 10/01/2023 Telephone Adult Medicine [address] [address] Bhakti Rodgers MD [address] [place], [place] [phone] Faxed Order Social History Tobacco Use Types [...] 9:13 AM EDT Faxed order received from [facility] and placed in providers box. documented in this encounter Plan of Treatment Not on file documented as of this encounter Visit Diagnoses Not on filedocumented in this encounter Care Teams District Claims Manager Relationship Specialty Start Date End Date Bhakti Rodgers MD [address] [place] [address] PCP - General Internal Medicine 07/02/20 documented as of this encounter
--- OUTSIDE RECORDS SUMMARY | 2024-08-13 17:10 | XMS_ITS | Clinical Summary ---
Author Organization [facility] Address [address] [facility] [address] [place] [address] Phone Care Team Providers Care Treasury Analyst Name Role Phone Bhakti Rodgers MD Primary Care Provider [phone] Allergies Active Allergy Reactions Criticality Noted Date [...] % PVNMA 01/16/2020 us [facility] [id number] LICITED RESULTS Final Result PVNMA from Last 3 Months or Most Recently Relevant to Health Maintenance Insurance [facility] Care Teams Treasury Analyst Relationship Specialty Start Date End Date Bhakti Rodgers MD PCP - General Internal Medicine 09/09/20
--- OUTSIDE RECORDS SUMMARY | 2024-08-13 17:10 | XMS_ITS | Encounter Summary ---
Author Organization [facility] Address [address] [place] [address] Care Team Providers Care Software Quality Automation Engineer Name Role Phone Bhakti Rodgers MD Primary Care Provider [phone] Encounter Details Date Type Department Care Team Description 07/08/2020 Hospital Medical Records [address] [place] [address] [facility] Social History Tobacco Use Types Packs/Day [...] on filedocumented in this encounter Care Teams Software Quality Automation Engineer Relationship Specialty Start Date End Date Bhakti Rodgers MD [address] [place], [place] [phone] PCP - General Internal Medicine 07/02/20 documented as of this encounter
--- OUTSIDE RECORDS SUMMARY | 2024-08-13 17:10 | XMS_ITS | Encounter Summary ---
Author Organization [facility] Address [address] [place] [address] Care Team Providers Care Logging Specialist Name Role Phone Bhakti Rodgers MD Primary Care Provider [phone] Encounter Details Date Type Department Care Team Description 09/12/2023 Home Health Certification Medical Records [address] [place] [address] Vna Social History Tobacco Use Types Packs/Day Years [...] on filedocumented in this encounter Care Teams Logging Specialist Relationship Specialty Start Date End Date Bhakti Rodgers MD [address] [place] [address] [phone] PCP - General Internal Medicine 07/02/20 documented as of this encounter
--- OUTSIDE RECORDS SUMMARY | 2024-08-13 17:10 | XMS_ITS | Encounter Summary ---
Author Organization [facility] Address [address] [place] [address] Care Team Providers Care Contract Negotiation Manager Name Role Phone Bahkti Rodgers MD Primary Care Provider [phone] Reason for Visit * Reason Onset Date Comments VNA Call 06/02/2023 Encounter Details Date Type Department Care Team Description 06/02/2023 Telephone Adult Medicine [facility] [address] [place] [address] Bhakti Rodgers MD [address] [place] [address] VNA Call Social History Tobacco Use Types [...] Telephone Encounter - Ole Harley L.P.N. - 06/03/2023 8:37 AM EST Vo given to Hallie * Telephone Encounter - Ole Harley L.P.N. - 06/02/2023 1:49 PM EST Called no ID on unable to leave a message Called office number [place] office picked up transferred the call to same phone number no [phone] on left a message to call me If Ken[place] [phone] Thank you * Telephone Encounter - Ellen Quintanilla PA-C - 06/02/2023 12:04 PM EST Please give verbal orders for VNA * Telephone Encounter - Ole LaP.NMaribell - 06/02/2023 10:58 AM EST Active with [facility] requesting VO to re cert patient for services Please review and advise for Dr. Rodgers Thank you Please send response to the VNA pool P [phone] Thank you Last seen by Dr. Rodgers 05/26/23 * Telephone Encounter - Kavitha Cotton - 06/02/2023 10:30 AM EST VNA CALL Which [facility]NA office is calling? [facility] Full name of caller: Tish The caller is An Occupational Therapist Is the caller at the patients home?: NO Reason for call: Verbal orders requesting no further home care services. Does caller need an urgent call back? NO Was CONTACT Telephone # obtained above?: NO Fax #: documented in this encounter Plan of Treatment Not on file documented as of this encounter Visit Diagnoses Not on filedocumented in this encounter Care Teams Contract Negotiation Manager Relationship Specialty Start Date End Date Bhakti Rodgers MD [address] [place] [address] PCP - General Internal Medicine 07/02/20 documented as of this encounter
--- OUTSIDE RECORDS SUMMARY | 2024-08-13 17:10 | XMS_ITS | Encounter Summary ---
Author Organization [facility] Address [address] [place] [address] Care Team Providers Care Instrumentation Designer Name Role Phone Bhakti Rodgers MD Primary Care Provider [phone] Reason for Visit * Reason Onset Date Comments Vna- Intake 08/09/2023 hospital follow up 08/09/2023 Encounter Details Date Type Department Care Team Description 08/09/2023 Telephone Adult Medicine [address] [address] Bhakti Rodgers MD [address] [place] [address] Vna- Intake; hospital follow up Social History [...] Telephone Encounter - Ole Harley L.P.N. - 09/06/2023 1:36 PM EDT VO given to Cassie * Telephone Encounter - Bhakti Rodgers MD - 09/06/2023 1:25 PM EDT Ok for VO; needs to keep 09/16 appt for signed orders * Telephone Encounter - Ole Harley L.P.NMaribell - 09/06/2023 1:16 PM EDT coming out of [facility] follow up booked for 09/17/23 Requesting VO PT and Nursing Please review and advise * Telephone Encounter - Carmela Cash - 09/06/2023 12:43 PM EDT Patient's spouse returned my call promptly - states that Charissa was at [facility] beginning 08/04/23 and then was moved to [facility] [place]. He does not have date when she was discharged from [facility] to [facility].. She is due to be discharged from [facility] on 09/10/23. I booked TCM appointment for 09/17/23 at 10:30am with Dr. Rodgers. * Telephone Encounter - Carmela Cash - 09/06/2023 12:35 PM EDT Received voicemail from patient's spouse, Joey (on VR), while I was at lunch notifying me that patient has been discharged from the hospital and needs to be scheduled for hospital follow up. I called Chris back at [phone] and left a voicemail for him to call me back directly to schedule hospital follow up appointment. * Telephone Encounter - Carmela Cash - 08/18/2023 10:21 AM EDT Received voicemail from patient's spouse, Joey, yesterday evening 08/17/23. Per spouse, patient is still currently at [facility] and he has no date of discharge as of yet. * Telephone Encounter - Carmela Cash - 08/11/2023 12:38 PM EDT Call # 2: left message asking patient to call me back directly to schedule hospital follow up appointment. ?? If patient calls the main line, please forward call to my extension [phone]. * Telephone Encounter - Carmela Cash - 08/10/2023 10:32 AM EDT Called and left message asking patient to call me back directly to schedule hospital follow up appointment. If patient calls the main line, please forward call to my extension [phone]. * Telephone Encounter - Katya Jaquez LPN [...] for VO for nursing/PT Pt discharged from [facility] d/t encephalopathy. Will need TCM appt. * Telephone Encounter - Brandyn Garibay - 08/09/2023 9:18 AM EDT VNA CALL Which [facility]NA office is calling? [facility] Full name of caller: laynie The caller is ophthalmologist retina specialist Is the caller at the patients home?: NO Reason for call: Laynie is requesting Verbal Orders to evaluate for Nursing and Physical Thearpy Does caller need an urgent call back? NO Was CONTACT Telephone # obtained above?: [phone] option 2 Fax #: documented in this encounter Plan of Treatment Not on file documented as of this encounter Visit Diagnoses Not on filedocumented in this encounter Care Teams Instrumentation Designer Relationship Specialty Start Date End Date Bhakti Rodgers MD [address] [place] [address] PCP - General Internal Medicine 07/02/20 documented as of this encounter
--- OUTSIDE RECORDS SUMMARY | 2024-08-13 17:10 | XMS_ITS | Encounter Summary ---
Author Organization [facility] [facility] Address [address] [place] [address] Care Team Providers Care Canine Enforcement Officer Name Role Phone Kizzy Archibald MD Primary Care Provider Jonathan Bhakti Smith MD Primary Care Provider Encounter Details Date Type Department Care Team Description 12/25/2016 Transfer Records Medical Records [address] [place] [address] Abstract, Provider Social History Tobacco Use Types [...] on filedocumented in this encounter Care Teams Canine Enforcement Officer Relationship Specialty Start Date End Date Kizzy Archibald MD PCP - General Internal Medicine 05/29/15 07/01/20 Bhakti Rodgers MD [address] [place] [address] PCP - General Internal Medicine 07/02/20 documented as of this encounter
--- OUTSIDE RECORDS SUMMARY | 2024-08-13 17:10 | XMS_ITS | Encounter Summary ---
Author Organization [facility] Address [address] [place] [address] Care Team Providers Care Hull Outfit Supervisor Name Role Phone Bhakti Rodgers MD Primary Care Provider [phone] Encounter Details Date Type Department Care Team Description 07/08/2020 Hospital Medical Records [address] [place] [address] Aleyda Sheridan MD Social History Tobacco Use [...] on filedocumented in this encounter Care Teams Hull Outfit Supervisor Relationship Specialty Start Date End Date Bhakti Rodgers MD [address] [place] [address] [phone] PCP - General Internal Medicine 07/02/20 documented as of this encounter
--- OUTSIDE RECORDS SUMMARY | 2024-08-13 17:10 | XMS_ITS | Encounter Summary ---
Author Organization [employer] [facility] Address [address] [place] [address] Care Team Providers Care Machine I Engraver Name Role Phone Bhakti Rodgers MD Primary Care Provider [phone] Encounter Details Date Type Department Care Team Description 08/04/2023 Sales Service Supervisor Report Medical Records [address] [place] [address] Abstract, Provider Social History Tobacco Use Types [...] filedocumented in this encounter Care Teams Machine I Engraver Relationship Specialty Start Date End Date Bhakti Rodgers MD [address] [place] [address] [phone] PCP - General Internal Medicine 07/02/20 documented as of this encounter
--- OUTSIDE RECORDS SUMMARY | 2024-08-13 17:10 | XMS_ITS | Encounter Summary ---
Author Organization [facility] Address [address] [place] [address] Care Team Providers Care Engineering Illustrator Name Role Phone Kizzy Archibald MD Primary Care Provider Bhakti Hickey MD Primary Care Provider [phone] Reason for Visit * Reason Onset Date Comments Provider Call Back 03/18/2020 Encounter Details Date Type Department Care Team Description 03/18/2020 Refill Endocrinology [address] [address] Ramone Barajas MD Provider Call Back Social [...] N/A Patients current insurance carrier is: Payor: [facility] FFS / Plan: [facility] MEDICARE PLUS $15 OTHELLO / Product Type: MEDICARE [id number] documented in this encounter Plan of Treatment Not on file documented as of this encounter Visit Diagnoses Not on filedocumented in this encounter Care Teams Engineering Illustrator Relationship Specialty Start Date End Date Kizzy Archibald MD PCP - General Internal Medicine 05/29/15 07/01/20 Bhakti Rodgers MD [address] [place] [address] PCP - General Internal Medicine 07/02/20 documented as of this encounter
--- OUTSIDE RECORDS SUMMARY | 2024-08-13 17:10 | XMS_ITS | Encounter Summary ---
Author Organization [facility] Address [address] [place] [address] Care Team Providers Care Lead Loader Name Role Phone Bhakti Rodgers MD Primary Care Provider [phone] Encounter Details Date Type Department Care Team Description 08/09/2023 Hospital Medical Records [address] [place] [address] Charmaine Horan Social History Tobacco Use Types [...] filedocumented in this encounter Care Teams Lead Loader Relationship Specialty Start Date End Date Bhakti Rodgers MD [address] [place] [address] PCP - General Internal Medicine 07/02/20 documented as of this encounter
--- OUTSIDE RECORDS SUMMARY | 2024-08-13 17:10 | XMS_ITS | Encounter Summary ---
Author Organization [employer] [facility] Address [address] [place] [address] Care Team Providers Care Director Phone Name Role Phone Kizzy Archibald MD Primary Care Provider Jonathan Bhakti Smith MD Primary Care Provider [phone] Encounter Details Date Type Department Care Team Description 03/21/2016 Pt. Referral Request [facility] Neeta [address] [place] [address] Md Neeta Social History Tobacco Use Types Packs/Day Years [...] filedocumented in this encounter Care Teams Director Phone Relationship Specialty Start Date End Date Kizzy Archibald MD PCP - General Internal Medicine 05/29/15 07/01/20 Bhakti Rodgers MD [address] [place] [address] [phone] PCP - General Internal Medicine 07/02/20 documented as of this encounter
--- OUTSIDE RECORDS SUMMARY | 2024-08-13 17:10 | XMS_ITS | Encounter Summary ---
Author Organization [facility] Address [address] [place] [address] Care Team Providers Care Edger Saw Operator Name Role Phone Bhakti Rodgers MD Primary Care Provider [phone] Encounter Details Date Type Department Care Team Description 07/16/2022 Hospital Medical Records [address] [place] [address] [facility] Social History Tobacco Use Types Packs/Day [...] on filedocumented in this encounter Care Teams Edger Saw Operator Relationship Specialty Start Date End Date Bhakti Rodgers MD [address] [place] [address] PCP - General Internal Medicine 07/02/20 documented as of this encounter
--- OUTSIDE RECORDS SUMMARY | 2024-08-13 17:11 | XMS_ITS | Encounter Summary ---
Author Organization [facility] Address [address] [place] [address] Care Team Providers Care Donkey Ride Operator Name Role Phone Bhakti Rodgers MD Primary Care Provider [phone] Encounter Details Date Type Department Care Team Description 03/03/2021 Orders Only Medical Records [address] [place] [address] Josiah Cooney MD [address] [place] [address] Social History Tobacco Use Types Packs/Day Years [...] Date/Time Associated Diagnosis Comments OUTSIDE PATHOLOGY Routine 02/27/2021 documented in this encounter Results * OUTSIDE PATHOLOGY (02/27/2021) Josiah Cooney MD OUTSIDE LAB documented in this encounter Visit Diagnoses Not on filedocumented in this encounter Care Teams Donkey Ride Operator Relationship Specialty Start Date End Date Bhakti Rodgers MD [address] [place] [address] PCP - General Internal Medicine 07/02/20 documented as of this encounter
--- OUTSIDE RECORDS SUMMARY | 2024-08-13 17:11 | XMS_ITS | Encounter Summary ---
Author Organization [employer] [facility] Address [address] [place] [address] Care Team Providers Care Castings Trimmer Name Role Phone Bhakti Rodgers MD Primary Care Provider [phone] Encounter Details Date Type Department Care Team Description 08/23/2020 Refill Adult Medicine [address] [phone] Bhakti Rodgers MD [address] [place] [address] [phone] Social History Tobacco Use Types Packs/Day Years [...] on filedocumented in this encounter Care Teams Castings Trimmer Relationship Specialty Start Date End Date Bhakti Rodgers MD [address] [place] [address] [phone] PCP - General Internal Medicine 07/02/20 documented as of this encounter
--- OUTSIDE RECORDS SUMMARY | 2024-08-13 17:11 | XMS_ITS | Encounter Summary ---
Author Organization [facility] [facility] Address [address] [place] [address] Care Team Providers Care Gauge And Instrument Inspector Name Role Phone Bhakti Rogders MD Primary Care Provider [phone] Encounter Details Date Type Department Care Team Description 09/09/2020 Reverse Engineer Report Medical Records [address] [place] [address] Corey Lund MD Social History Tobacco Use [...] on filedocumented in this encounter Care Teams Gauge And Instrument Inspector Relationship Specialty Start Date End Date Bhakti Rodgers MD [address] [place], [place] 1984220 PCP - General Internal Medicine 07/02/20 documented as of this encounter
--- OUTSIDE RECORDS SUMMARY | 2024-08-13 17:11 | XMS_ITS | Encounter Summary ---
Author Organization [facility] Address [address] [place] [address] Care Team Providers Care Spooler Rubber Strand Name Role Phone Bhakti Rodgers MD Primary Care Provider [phone] Encounter Details Date Type Department Care Team Description 09/28/2022 Hospital Medical Records [address] [place] [address] [facility] Social History Tobacco Use Types [...] on filedocumented in this encounter Care Teams Spooler Rubber Strand Relationship Specialty Start Date End Date Bhakti Rodgers MD [address] [place] [address] [phone] PCP - General Internal Medicine 07/02/20 documented as of this encounter
--- OUTSIDE RECORDS SUMMARY | 2024-08-13 17:11 | XMS_ITS | Encounter Summary ---
Author Organization [facility] Address [address] [place] [address] Care Team Providers Care Finance Mgr Name Role Phone Bhakti Rodgers MD Primary Care Provider [phone] Encounter Details Date Type Department Care Team Description 08/06/2022 Home Health Certification Medical Records [address] [place] [address] Abstract, Provider Social History Tobacco Use Types [...] on filedocumented in this encounter Care Teams Finance Mgr Relationship Specialty Start Date End Date Bhakti Rodgers MD [address] [place] [address] [phone] PCP - General Internal Medicine 07/02/20 documented as of this encounter
--- OUTSIDE RECORDS SUMMARY | 2024-08-13 17:11 | XMS_ITS | Encounter Summary ---
Author Organization [facility] Address [address] [place] [address] Care Team Providers Care [place] Lounge Driver Or Operator Name Role Phone Kizzy Archibald MD Primary Care Provider Bhakti Hickey MD Primary Care Provider [phone] Reason for Visit * Reason Onset Date Comments Provider Call Back 10/24/2018 Encounter Details Date Type Department Care Team Description 10/24/2018 Telephone Endocrinology - [address] [place] [address] [address] Ramone Barajas MD Provider Call Back Social [...] 10/24/2018 4:35 PM EDT Please send to [facility] * Telephone Encounter - aKreen Rick - 10/24/2018 4:03 PM EDT This will need to go to Dr. Barajas and his Nursing staff. * Telephone Encounter - Yoli LaPMaribellN. - 10/24/2018 9:04 AM EDT Please clarify [...] on filedocumented in this encounter Care Teams Mobile Lounge Driver Or Operator Relationship Specialty Start Date End Date Kizzy Archibald MD PCP - General Internal Medicine 05/29/15 07/01/20 Bhakti Rodgers MD [address] [place] [address] PCP - General Internal Medicine 07/02/20 documented as of this encounter
--- OUTSIDE RECORDS SUMMARY | 2024-08-13 17:11 | XMS_ITS ---
Author Organization [facility] on Care Team Providers Care Air Boatswain Name Role Phone Claudia Dennis Unavailable Unavailable Elizabeth Lopez Unavailable Unavailable Sarah Ramírez Unavailable Unavailable Yani Blackwell Unavailable Unavailable Sushila Singh Unavailable Unavailable Santi Richard Unavailable Unavailable Sloane Ann Unavailable Unavailable Allergies and adverse reactions Code CodeSystem Substance Reaction Severity StartDate Concern Status 6809 RXNORM metFORMIN Unknown 07/28/2022 active 4053 RXNORM Erythromycin Unknown 07/28/2022 active 02235 RXNORM Azithromycin Unknown 07/28/2022 active Care Team Name Role Address Phone Organization Dates Sarah Ramírez PCP [address] [place] [address], [address], [place] (Office): : [facility] 07/28/2022 - 08/05/2022 Claudia Dennis Attending Physician [address] [place], [address], [place] (Office): [phone] [facility] 07/28/2022 - 08/05/2022 Elizabeth Loepz Attending Physician [address] [place], [address], [place] (Office): [facility] 07/28/2022 - 08/05/2022 Yani Blackwell Attending Physician [address] [place], [address], [place] (Office): [facility] 07/28/2022 - 08/05/2022 Sushila Singh Attending Physician [address] [place], [address], [place] (Office): [facility] 07/28/2022 - 08/05/2022 Santi Richard Attending Physician [address] [place], [address], [place] (Office): [facility] 07/28/2022 - 08/05/2022 Sloane Ann Attending Physician [address] [place], [address], [place] (Office): : [facility] 07/28/2022 - 08/05/2022 Immunizations Immunization Status Vaccine Details Vaccine Code CodeSystem Date Notes Influenza completed Influenza, split virus, trivalent, injectable, contains preservative 141 CVX created date: 07/28/2022 administer ed date: 02/07/2022 verified by [facility] Zostavax(Shingles ) completed zoster vaccine, live 121 CVX created date: 07/28/2022 administer ed date: 01/28/2016 verified by [facility] Pneumococcal Conjugate Vaccine (PCV13) completed pneumococcal conjugate vaccine, 13 valent 133 CVX created date: 07/28/2022 administer ed date: 10/15/2017 verified by [facility] Pneumococcal Polysaccharide Vaccine (PPSV23) completed pneumococcal polysaccharide vaccine, 23 valent 33 CVX created date: 07/28/2022 administer ed date: 06/29/2022 verified by [facility] Pneumococcal Polysaccharide Vaccine (PPSV23) completed pneumococcal polysaccharide vaccine, 23 valent 33 CVX created date: 07/28/2022 administer ed date: 12/19/2015 verified by [facility] Pneumococcal Polysaccharide Vaccine (PPSV23) completed pneumococcal polysaccharide vaccine, 23 valent 33 CVX created date: 07/28/2022 administer ed date: 06/05/2015 verified by [facility] TDAP( Tetanus/Diptheria /Perutssis) completed tetanus and diphtheria toxoids, adsorbed, preservative free, for adult use, Lf unspecified 196 CVX created date: 07/28/2022 administer ed date: 06/29/2022 verified by [facility] SARS-COV-2 (COVID-19) completed SARS-COV-2 (COVID-19) vaccine, mRNA, spike protein, LNP, preservative free, 30 mcg/0.3mL dose Mfg: PayEase Step 2 of Multi-step with next step required 208 CVX created date: 07/28/2022 administer ed date: 09/14/2020 verified by [facility] SARS-COV-2 (COVID-19) completed SARS-COV-2 (COVID-19) vaccine, mRNA, spike protein, LNP, preservative free, 30 mcg/0.3mL dose Mfg: pfizer Step 1 of Multi-step with next step required 208 CVX created date: 07/28/2022 administer ed date: 08/21/2020 verified by [employer] completed zoster vaccine recombinant 187 CVX created date: 07/28/2022 administer ed date: 10/02/2020 verified by [facility] Mental Status Section Date Assessment Total Score Description 08/05/2022 BIMS 14 cognitively int act CAM 0 No delirium ind icated PHQ-9 00 08/03/2022 BIMS 12 moderate cognit manda impairment CAM 0 No delirium ind icated PHQ-9 07 mild depression Problems Problem # Description Date of onset Resolved Date Code CodeSystem Concern Status 1 CHRONIC KIDNEY DISEASE, STAGE 3 UNSPECIFIED 07/28/[address] active 2 ESSENTIAL (PRIMARY) HYPERTENSION 07/28/[address] active 3 HEMIPLEGIC MIGRAINE, NOT INTRACTABLE, WITHOUT STATUS MIGRAINOSUS 07/28/[address] active 4 HYPERLIPIDEMIA, UNSPECIFIED 07/28/[address] active 5 MAJOR DEPRESSIVE DISORDER, RECURRENT, UNSPECIFIED 07/28/[address] active 6 MORBID (SEVERE) OBESITY DUE TO EXCESS CALORIES 07/28/[address] active 7 OTHER HALLUCINATIONS 07/28/[address] active 8 OTHER TOXIC ENCEPHALOPATHY 07/28/[address] active 9 TYPE 2 DIABETES MELLITUS WITHOUT COMPLICATIONS 07/28/[address] active Reason for Referral No Reasons for Referral Entered Social History Social History Observation Description Start Date End Date Code Code System Current Smoking Status Tobacco smoking consumption unknown 048047508 SNOMED CT Sex Assigned At Female 1950 57241-1 [facility] Vital Signs Code Code System Vitals Name Values and Units Timing Information 9279-1 [facility] Respiratory Rate Value=18.0 Units=/m in 08/05/2022 8462-4 [facility] Blood Pressure-Diastolic Value=78 Un its=mmHg 08/05/2022 8480-6 [facility] Blood Pressure-Systolic Xjjiv=584 Un its=mmHg 08/05/2022 8310-5 [facility] Body Temperature Value=97.6 Units=?? F 08/05/2022 8867-4 [facility] Heart rate Value=76.0 Units=/min 24241-9 [facility] O2 % BldC Oximetry Value=97.0 Units= % 08/05/2022 2339-0 [facility] Blood Sugar Mscsd=320.0 Units=mg/dL 08/05/2022 01135-6 [facility] Pain Level Value=0.0 08/05/2022 8302-2 [facility] Height Value=62.0 Units=Inches 07/30/2022 43150-8 [facility] Weight Qaysu=544.5 Units=Lbs
--- OUTSIDE RECORDS SUMMARY | 2024-08-13 17:11 | XMS_ITS | Encounter Summary ---
Author Organization [facility] Address [address] [place] [address] Care Team Providers Care Trading Assistant Name Role Phone Kizzy Archibald MD Primary Care Provider Jonathan Bhakti Smith MD Primary Care Provider [phone] Encounter Details Date Type Department Care Team Description 05/08/2019 Orders Only General Surgery - [address] [place] [id number] Josiah Cooney MD [address] [place] [address] Phyllodes tumor of breast (Primary Dx) [...] Primary documented in this encounter Care Teams Trading Assistant Relationship Specialty Start Date End Date Kizzy Archibald MD PCP - General Internal Medicine 05/29/15 07/01/20 Bhakti Rodegrs MD [address] [place] [address] PCP - General Internal Medicine 07/02/20 documented as of this encounter
--- OUTSIDE RECORDS SUMMARY | 2024-08-13 17:11 | XMS_ITS | Encounter Summary ---
Author Organization [facility] Address [address] [place] [address] Care Team Providers Care Slusher Operator Name Role Phone Bhakti Rodgers MD Primary Care Provider Reason for Visit * Reason Onset Date Comments Prior Authorization 08/21/2022 Encounter Details Date Type Department Care Team Description 08/21/2022 Telephone Endocrinology - [place] [address] [place] [address] Caitlin Nash PA-C [address] [place] [address] Prior Authorization Social History Tobacco Use Types [...] PHARM Lupe Donovan Prior Auth Dep Ext [id number] * Telephone Encounter - Lupe Donovan M.A. - 08/24/2022 1:51 PM EDT AUTH FAXED TO [facility] DX:E11.22 TRIED METFORMIN, TRULICITY, NOVOLOG, LANTUS, VICTOZA [...] What Pharmacy did the fax come from: [facility] fax #: [phone] documented in this encounter Plan of Treatment Not on file documented as of this encounter Visit Diagnoses Not on filedocumented in this encounter Care Teams Slusher Operator Relationship Specialty Start Date End Date Bhakti Rodgers MD [address] [place] [address] PCP - General Internal Medicine 07/02/20 documented as of this encounter
--- OUTSIDE RECORDS SUMMARY | 2024-08-13 17:11 | XMS_ITS | Encounter Summary ---
Author Organization [facility] Address [address] [place] [address] Care Team Providers Care Rug Sample Beveler Name Role Phone Kizzy Archibald MD Primary Care Provider Jonathan Bhakti Smith MD Primary Care Provider [phone] Encounter Details Date Type Department Care Team Description 05/25/2018 Jig Builder Helper Report Medical Records [address] [place] [address] Germán Luevano MD Social History Tobacco Use [...] on filedocumented in this encounter Care Teams Rug Sample Beveler Relationship Specialty Start Date End Date Kizzy Archibald MD PCP - General Internal Medicine 05/29/15 07/01/20 Bhakti Rodgers MD [address] [place] [address] [phone] PCP - General Internal Medicine 07/02/20 documented as of this encounter
--- OUTSIDE RECORDS SUMMARY | 2024-08-13 17:11 | XMS_ITS | Encounter Summary ---
Author Organization [facility] Address [address] [place] [address] Care Team Providers Care Grinder Name Role Phone Bhakti Rodgers MD Primary Care Provider [phone] Encounter Details Date Type Department Care Team Description 10/06/2022 Hospital Medical Records [address] [place] [address] Aleyda Sheridan MD Social History Tobacco Use [...] on filedocumented in this encounter Care Teams Grinder Relationship Specialty Start Date End Date Bhakti Rodgers MD [address] [place] [address] [phone] PCP - General Internal Medicine 07/02/20 documented as of this encounter
--- OUTSIDE RECORDS SUMMARY | 2024-08-13 17:11 | XMS_ITS | Encounter Summary ---
Author Organization [facility] Address [address] [place] [address] Care Team Providers Care Investment Manager Name Role Phone Bhakti Rodgers MD Primary Care Provider [phone] Reason for Visit * Reason Onset Date Comments refill request 08/23/2020 Encounter Details Date Type Department Care Team Description 08/23/2020 Refill Adult Medicine [address] [address] Bhakti Rodgers MD [address] [place] [address] [phone] refill request Social History Tobacco Use Types [...] filedocumented in this encounter Care Teams Investment Manager Relationship Specialty Start Date End Date Bhakti Rodgers MD [address] [place] [address] PCP - General Internal Medicine 07/02/20 documented as of this encounter
--- OUTSIDE RECORDS SUMMARY | 2024-08-13 17:11 | XMS_ITS | Encounter Summary ---
Author Organization [facility] Address [address] [place] [address] Care Team Providers Care Bakery Machine Mechanic Name Role Phone Kizzy Archibald MD Primary Care Provider Bhakti Hickey MD Primary Care Provider [phone] Reason for Visit * Reason Onset Date Comments Provider Call Back 11/01/2018 patient finis hed 5 vials from [employer] sales development representative (Jonathan) has not heard back what should she do? Encounter Details Date Type Department Care Team Description 11/01/2018 Telephone Endocrinology - [place] [address] [place] [address] Ramone Barajas MD Provider Call Back (patient finished 5 vials from [employer] sales development representative (Jonathan) has not heard back what should she do?) Social History Tobacco Use Types Packs/Day Years [...] * Telephone Encounter - Johnna MACK - 11/01/2018 10:35 AM EDT Pt aware local pharm is [facility] in [place] * Telephone Encounter - Ramone Barajas MD - 11/01/2018 10:25 AM EDT getting in touch with rep, then will contact her * Telephone Encounter - Citlaly Santana - 11/01/2018 10:09 AM EDT Caller requesting call back from provider: Is the caller the patient? YES If caller is not the patient, what is the callers name? N/A Callers relationship to patient? N/A If person calling is not the patient themselves, is there a verbal release in FYI or permanent comments for this person: NO Reason for call back: Patient called today and states that she has finished tody the 5 cartridges given to her from the [employer] sales development representative (Jonathan). He was supposed to contact her by today andshe has not heard back from him and is not sure what she should do? Does she go back to the previous form of injections or is she getting a prescription for the [employer] cartridges for her pump? Does she leave the pump on or is she supposed to take it off. Please call her today ODILON. Caller offered to speak with the nurse for assistance: YES Response: Patient offered to speak with nurse for assistance and patient agreed. Message forwarded to nurse. documented in this encounter Plan of Treatment Not on file documented as of this encounter Visit Diagnoses Not on filedocumented in this encounter Care Teams Bakery Machine Mechanic Relationship Specialty Start Date End Date Kizzy Archibald MD PCP - General Internal Medicine 05/29/15 07/01/20 Bhakti Rodgers MD [address] [place] [address] PCP - General Internal Medicine 07/02/20 documented as of this encounter
--- OUTSIDE RECORDS SUMMARY | 2024-08-13 17:11 | XMS_ITS | Encounter Summary ---
Author Organization [facility] Address [address] [place] [address] Care Team Providers Care Agriscience Instructor Name Role Phone Bhakti Rodgers MD Primary Care Provider [phone] Reason for Visit * Reason Onset Date Comments Medication 08/21/2022 Humalog Kwikpen Encounter Details Date Type Department Care Team Description 08/21/2022 Telephone Endocrinology - [address] [address] Caitlin Nash PA-C [address] [place] [address] Medication (Humalog Kwikpen) Social History Tobacco Use Types Packs/Day Years [...] Miscellaneous Notes * Telephone Encounter - Charissa Rich M.A. - 08/21/2022 10:49 AM EDT Had not received any request for PA to be done. Called pharmacy. They will submit for PA through cover my meds and send us document request so that it can be processed through the PA dept. * Telephone Encounter - Kavitha aguilera Lottie - 08/21/2022 9:28 AM EDT What is the name of the medication patient is having a problem with?: humalog What is the problem?: patient's Rx for Humalog Mayank was sent to [facility] in [place] on 08/13, buther just spoke with them and they are still waiting for authorization ? Can someone please look into this for the patient or resent the Rx. Is the patient calling about the problem? NO If the patient is not the caller who is? Patient's Is this a NEW medication?: NO How long has the patient been taking this medication? Who prescribed this medication for the patient? Caitlin Who is patients PCP?: Bhakti Rodgers Payor: [facility] FFS / Plan: [facility] MEDICARE PLUS $10 RAY / Product Type: MEDICARE [id number] documented in this encounter Plan of Treatment Not on file documented as of this encounter Visit Diagnoses Not on filedocumented in this encounter Care Teams Agriscience Instructor Relationship Specialty Start Date End Date Bhakti Rodgers MD [address] [place] [address] PCP - General Internal Medicine 07/02/20 documented as of this encounter
--- OUTSIDE RECORDS SUMMARY | 2024-08-13 17:11 | XMS_ITS | Clinical Summary ---
Author Organization [facility] Address [address] [place] [address] Care Team Providers Care Airworthiness Inspector Name Role Phone Bhakti Rodgers MD Primary Care Provider [phone] Allergies Active Allergy Reactions Criticality Noted Date [...] age to complete this topic Care Teams Airworthiness Inspector Relationship Specialty Start Date End Date Bhakti Rodgers MD PCP - General Internal Medicine 09/11/20
--- OUTSIDE RECORDS SUMMARY | 2024-08-13 17:11 | XMS_ITS | Encounter Summary ---
Author Organization [facility] Address [address] [place] [address] Care Team Providers Care Coal Carrier Name Role Phone Bhakti Rodgers MD Primary Care Provider [phone] Encounter Details Date Type Department Care Team Description 10/08/2020 Medical Operations Supervisor Report Medical Records [address] [place] [address] Germán Luevano MD Social History Tobacco Use [...] have Coronavirus / COVID-19? No / Unsure 09/17/2020 9:06 AM EDT documented as of this encounter Plan of Treatment Not on file documented as of this encounter Visit Diagnoses Not on filedocumented in this encounter Care Teams Coal Carrier Relationship Specialty Start Date End Date Bhakti Rodgers MD [address] [place] [address] [phone] PCP - General Internal Medicine 07/02/20 documented as of this encounter
--- OUTSIDE RECORDS SUMMARY | 2024-08-13 17:11 | XMS_ITS | Encounter Summary ---
Author Organization [facility] Address [address] [place] [address] Care Team Providers Care Welt Butter Hand Name Role Phone Bhakti Rodgers MD Primary Care Provider [phone] Encounter Details Date Type Department Care Team Description 09/14/2022 Pt. Non Urgent Medical Question Endocrinology - [place] [address] [place] [address] Caitlin Nash PA-C [address] [place] [address] Social History Tobacco Use Types Packs/Day Years [...] Telephone Encounter - Charissa Rich M.A. - 09/14/2022 3:06 PM EDTFrom: Charissa Nguyen To: Gabrielle Nash Sent: 09/14/2022 2:18 PM EDT Subject: Lisinopril 5 mg On September 08 I had an appointment with Ellen Gonzalez. She instructed me to stop the above medicationuntil I saw you on September 16 at 3:30 p.m. Do I need to stay on the medication or not? On September 13 during the course of the day my blood pressure was high - 157/69 at 11:30 a.m., 167/69 at 5:43 p.m., 164/67at 7:20 p.m., and 148/62 at 8:12 p.m. (1/2 pill of lisinopril taken). Please advise. I am having some type of withdrawal. documented in this encounter Plan of Treatment Not on file documented as of this encounter Visit Diagnoses Not on filedocumented in this encounter Care Teams Welt Butter Hand Relationship Specialty Start Date End Date Bhakti Rodgers MD [address] [place] [address] PCP - General Internal Medicine 07/02/20 documented as of this encounter
--- OUTSIDE RECORDS SUMMARY | 2024-08-13 17:11 | XMS_ITS | Encounter Summary ---
Author Organization [facility] Address [address] [place] [address] Care Team Providers Care Locomotive Crane Operator Name Role Phone Kizzy Archibald MD Primary Care Provider Bhakti Hickey MD Primary Care Provider [phone] Reason for Visit * Reason Comments E-prescribe Rx Request Encounter Details Date Type Department Care Team Description 02/13/2019 Refill Medicine/Pediatrics - [address] [address] Eddie Bo PA-C E-prescribe Rx Request Social [...] N/A Patients current insurance carrier is: Payor: [facility] FFS / Plan: [facility] MEDICARE PLUS $15 [place] / Product Type: MEDICARE [id number] documented in this encounter Plan of Treatment Not on file documented as of this encounter Visit Diagnoses Not on filedocumented in this encounter Care Teams Locomotive Crane Operator Relationship Specialty Start Date End Date Kizzy Archibald MD PCP - General Internal Medicine 05/29/15 07/01/20 Bhakti Rodgers MD [address] [place] [address] PCP - General Internal Medicine 07/02/20 documented as of this encounter
--- OUTSIDE RECORDS SUMMARY | 2024-08-13 17:11 | XMS_ITS | Encounter Summary ---
Author Organization [facility] Address [address] [place] [address] Care Team Providers Care Learning Technologist Name Role Phone Kizzy Archibald MD Primary Care Provider Bhakti Hickey MD Primary Care Provider [phone] Reason for Visit * Reason Onset Date Comments Prior Authorization 12/14/2018 Encounter Details Date Type Department Care Team Description 12/14/2018 Telephone Medicine/Pediatrics - [address] [address] Kizzy Archibald MD Prior Authorization Social History Tobacco Use [...] Telephone Encounter - Thelma Esquivel M.A. - 12/19/2018 12:24 PM EDT Prior authorization for the lantus is approved from 12/15/18 until 05/09/19. An exception request will need to be done again on 05/10/[address] [facility] at [phone] * Telephone Encounter - Thelma Esquivel M.A. - 12/15/2018 2:11 PM EDT Prior authorization form for hne completed today for the lantus solostar and faxed today Dx code e11.49 Tried and failed Novolog Humalog Humalin Victoza Metformin Repaglinide Januvia * Telephone Encounter - Leonela Rodriguez - 12/14/2018 11:24 AM EDT Pre Authorization for Medication-do not complete and send this encounter unless you have the fax from the pharmacy. Is this a Cover My Meds request: Fabrica of Medication Insulin Glargine (LANTUS SOLOSTAR) 100 UNIT/ML Solution Pen-injector Dose of Medication 100 UNIT/ML Solution Pen-injector What is the RX # from the faxed refill? [id number] How does patient take this med? Take 58 in the morning and 60 units ta night What Pharmacy did the fax come from: [facility] fax #: [phone] [employer] Information from fax: What Prescription Plan does the patient have? Medicare- RX D COOLING TOWER TECHNICIAN Groups G BIN/PCN if applicable: Cardholder ID: Person Code: Relationship Code: Help desk phone: Pt's insurance does not cover nore than 1 dose per day documented in this encounter Plan of Treatment Not on file documented as of this encounter Visit Diagnoses Not on filedocumented in this encounter Care Teams Learning Technologist Relationship Specialty Start Date End Date Kizzy Archibald MD PCP - General Internal Medicine 05/29/15 07/01/20 Bhakti Rodgers MD [address] [place] [address] PCP - General Internal Medicine 07/02/20 documented as of this encounter
--- OUTSIDE RECORDS SUMMARY | 2024-08-13 17:11 | XMS_ITS | Encounter Summary ---
Author Organization [facility] Address [address] [place] [address] Care Team Providers Care Farmworker Dairy Name Role Phone Bhakti Rodgers MD Primary Care Provider [phone] Reason for Visit * Reason Onset Date Comments hospital follow up 09/30/2022 Encounter Details Date Type Department Care Team Description 09/30/2022 Telephone Adult Medicine [address] [address] Bhakti Rodgers MD [address] [place] [address] [phone] hospital follow up Social History Tobacco Use [...] on verbal, states pt was read[facility] into [facility] hospital again for migraine and will call me back once she discharges to schedule f/u. * Telephone Encounter - Maxineale Leslye Youssef - 09/30/2022 10:03 AM EDT Hospital follow up appointment needed Hospital patient was treated at: [facility] Was this only an ER visit [...] on filedocumented in this encounter Care Teams Farmworker Dairy Relationship Specialty Start Date End Date Bhakti Rodgers MD [address] [place] [address] PCP - General Internal Medicine 07/02/20 documented as of this encounter
--- OUTSIDE RECORDS SUMMARY | 2024-08-13 17:11 | XMS_ITS | Encounter Summary ---
Author Organization [facility] Address [address] [place] [address] Care Team Providers Care Gifts Officer Name Role Phone Bhakti Rodgers MD Primary Care Provider [phone] Reason for Visit * Reason Onset Date Comments Prior Authorization 02/15/2023 Encounter Details Date Type Department Care Team Description 02/15/2023 Telephone Endocrinology - [address] [address] Caitlin Nash PA-C [address] [place] [address] Prior Authorization Social History Tobacco Use Types [...] encounter Miscellaneous Notes * Telephone Encounter - Caitlin Nash PA-C - 02/25/2023 3:07 PM EDT I prescribed Guillermosiba. * Telephone Encounter - Charissa Rich M.A. - 02/25/2023 10:16 AM EDT Mima Greco 6 minutes ago (10:09 AM) TD Patients spouse is at the desk again today and now would like a new insulin besides the Lantus prescribed for his . He can be reached [phone] or [phone] * Telephone Encounter - Mima Greco - 02/25/2023 9:56 AM EDT Patients spouse stopped at the patient coordinator front desk for the second time this week. He is still not sure as towhy he can not get his wifes insulin filled through their insurance. He said that his only has1 pen left. Does he need to make a phone call to the insurance company or does the artist mannequin coloring have to call the insurance company? He says all he does is make phone calls back and forth and nothing is getting resolved. He wants to know exactly what he needs to do in order to get this rx filled andpaid for thru her insurance. He can be reached at [phone]. * Telephone Encounter - Charissa Rich M.A. - 02/18/2023 11:34 AM EDT Spoke to patient she says she spoke to her insurance again and that they would take care of the block but it would take about a week. * Telephone Encounter - Thelma Esquivel M.A. - 02/18/2023 10:51 AM EDT Spoke with Yani from [facility]. ?? Pt is unable to get this medication through her insurance because she applied to get it right from the artist mannequin coloring program. ? If pt is no longer getting this from artist manne[employer] coloring , she will need for them to call her insurance company and verify that. So that the block can be taken off and pt can get through insurance again. ? Thank you ? Please reply back to [id number] Prior Auth Pool ?? [facility] Prior Authorization ?? Ext [phone] ? * Telephone Encounter - Kavitha Tafoya - 02/17/2023 12:16 PM EDT Patient spoke to her insurance and states we need to do an appeal to the insurance company for the lantus solostar, to remove the block. She is requesting us to do this please. * Telephone Encounter - Charissa Rich M.A. - 02/17/2023 9:34 AM EDT Spoke to patient. She will call her insurance today to see what she has to do to remove block. * Telephone Encounter - Charissa Rich M.A. - 02/16/2023 4:08 PM EDT L/M for patient to return call * Telephone Encounter - Thelma Esquivel M.A. - 02/16/2023 12:36 PM EDT Spoke with Yani from [facility]. Pt is unable to get this medication through her insurance because she applied to get it right from the artist mannequin coloring program. If pt is no longer getting this from artist [employer] , she will need for them to call her insurance company and verify that. So that the block can be taken off and pt can get through insurance again. Thank you Please reply back to [id number] Prior Auth Pool [facility] Prior Authorization Ext [phone] * Telephone Encounter - Mima Greco - 02/15/2023 12:03 PM EDT Prior Authorization for Medication-do not complete and send this encounter unless you have the fax from the pharmacy. Is this a Cover My Meds request: [place] of Medication Lantus Insulin Dose of Medication n/a What is the RX # from the faxed refill? N/a How does patient take this med? N/a What Pharmacy did the fax come from: [facility] fax #: [phone] documented in this encounter Plan of Treatment Not on file documented as of this encounter Visit Diagnoses Not on filedocumented in this encounter Care Teams Gifts Officer Relationship Specialty Start Date End Date Bhakti Rodgers MD [address] [place] [address] PCP - General Internal Medicine 07/02/20 documented as of this encounter
--- OUTSIDE RECORDS SUMMARY | 2024-08-13 17:11 | XMS_ITS | Encounter Summary ---
Author Organization [facility] Address [address] [place] [address] Care Team Providers Care Curriculum Writer Name Role Phone Kizzy Archibald MD Primary Care Provider Bhakti Hickey MD Primary Care Provider [phone] Encounter Details Date Type Department Care Team Description 04/21/2018 Release of Information Medical Records [address] [address] Abstract, Provider Social History Tobacco Use Types [...] on filedocumented in this encounter Care Teams Curriculum Writer Relationship Specialty Start Date End Date Kizzy Archibald MD PCP - General Internal Medicine 05/29/15 07/01/20 Bhakti Rodgers MD [address] [place] [address] PCP - General Internal Medicine 07/02/20 documented as of this encounter
--- OUTSIDE RECORDS SUMMARY | 2024-08-13 17:11 | XMS_ITS | Encounter Summary ---
Author Organization [facility] Address [address] [place] [address] Care Team Providers Care Clerical Dentist Assistant Name Role Phone Bhakti Rodgers MD Primary Care Provider [phone] Encounter Details Date Type Department Care Team Description 09/30/2022 Hospital Medical Records [address] [place] [address] [facility] Social History Tobacco Use Types Packs/Day [...] on filedocumented in this encounter Care Teams Clerical Dentist Assistant Relationship Specialty Start Date End Date Bhakti Rodgers MD [address] [place] [address] [phone] PCP - General Internal Medicine 07/02/20 documented as of this encounter
--- OUTSIDE RECORDS SUMMARY | 2024-08-13 17:11 | XMS_ITS | Encounter Summary ---
Author Organization [facility] Address [address] [place] [address] Care Team Providers Care Art Librarian Name Role Phone Kizzy Archibald MD Primary Care Provider Bhakti Hickey MD Primary Care Provider [phone] Encounter Details Date Type Department Care Team Description 09/14/2018 Orders Only Medicine/Pediatrics - [address] [address] Marti Garcia PA-C Hypothyroidism, unspecified type (Primary Dx) Social History Tobacco Use Types [...] on file documented as of this encounter Results * THYROID PROFILE W/TSH (12/15/2018 11:18 AM EDT) TSH CASCADE 0.46 0.40 - 4.00 uIU/ml 12/15/2018 3:27 PM EDT [facility] 12/15/2018 11:1 8 AM EDT 12/15/2018 11:19 AM EDT Marti Garcia PA-C LAB [facility] documented in this encounter Visit Diagnoses Diagnosis Hypothyroidism, unspecified type- Primary documented in this encounter Care Teams Art Librarian Relationship Specialty Start Date End Date Kizzy Archibald MD PCP - General Internal Medicine 05/29/15 07/01/20 Bhakti Rodgers MD [address] [place] [address] PCP - General Internal Medicine 07/02/20 documented as of this encounter
--- OUTSIDE RECORDS SUMMARY | 2024-08-13 17:11 | XMS_ITS | Encounter Summary ---
Author Organization [employer] [facility] Address [address] [place] [address] Care Team Providers Care Concrete Laborer Name Role Phone Kizzy Archibald MD Primary Care Provider Jonathan Bhakti Smith MD Primary Care Provider [phone] Encounter Details Date Type Department Care Team Description 10/19/2018 Orders Only Adult Medicine [address] [address] Ramone Barajas MD Social History Tobacco Use [...] on filedocumented in this encounter Care Teams Concrete Laborer Relationship Specialty Start Date End Date Kizzy Archibald MD PCP - General Internal Medicine 05/29/15 07/01/20 Bhakti Rodgers MD [address] [place] [address] PCP - General Internal Medicine 07/02/20 documented as of this encounter
--- OUTSIDE RECORDS SUMMARY | 2024-08-13 17:11 | XMS_ITS | Encounter Summary ---
Author Organization [facility] Address [address] [place] [address] Care Team Providers Care Machinist Bench Name Role Phone Kizzy Archibald MD Primary Care Provider Bhakti Hickey MD Primary Care Provider [phone] Reason for Referral * Non MICHELLE (Priority) - Authorized/Booked Specialty Diagnoses / Procedures Referred By Carolyn marin Referred To Contact Plastic Surgery / Plastic surgery Diagnoses Phyllodes tumor of breast Procedures REFERRAL TO PLASTIC SURGERY (IN NETWORK) Josiah Cooney MD [address] [place] [address] Plastic Surg/[place] 300 [address] [facility] [address] [place] [phone] Referral ID Status Reason Start Date Expiration Date V isits Requested Visits Authorized [id number] Authorized/B ooked 05/09/2019 05/08/2020 1 1 Encounter Details Date Type Department Care Team Description 05/09/2019 Orders Only General Surgery - [place] [address] [facility] [address] [place] [address] Josiah Cooney MD [address] [place], [place] [phone] Phyllodes tumor of breast (Primary Dx) Social [...] Primary documented in this encounter Care Teams Machinist Bench Relationship Specialty Start Date End Date Kizzy Archibald MD PCP - General Internal Medicine 05/29/15 07/01/20 Bhakti Rodgers MD [address] [place] [address] PCP - General Internal Medicine 07/02/20 documented as of this encounter
--- OUTSIDE RECORDS SUMMARY | 2024-08-13 17:11 | XMS_ITS | Encounter Summary ---
Author Organization [facility] Address [address] [place] [address] Care Team Providers Care Digital Tech Name Role Phone Bhakti Rodgers MD Primary Care Provider [phone] Encounter Details Date Type Department Care Team Description 03/18/2021 Orders Only Adult Medicine [facility] [address] [place] [id number] Ellen Wellington PA-C [address] [place] [id number] Type 2 diabetes mellitus with stage 3 [...] (HCC) documented in this encounter Care Teams Digital Tech Relationship Specialty Start Date End Date Bhakti Rodgers MD [address] [place] [id number] PCP - General Internal Medicine 07/02/20 documented as of this encounter
--- OUTSIDE RECORDS SUMMARY | 2024-08-13 17:11 | XMS_ITS | Encounter Summary ---
Author Organization [facility] Address [address] [place] [address] Care Team Providers Care Php Mysql Developer Name Role Phone Kizzy Archibald MD Primary Care Provider Jonathan Bhakti Smith MD Primary Care Provider [phone] Encounter Details Date Type Department Care Team Description 06/27/2015 Release of Information Medical Records [address] [place] [id number] Abstract, Provider Social History Tobacco Use Types [...] on filedocumented in this encounter Care Teams Php Mysql Developer Relationship Specialty Start Date End Date Kizzy Archibald MD PCP - General Internal Medicine 05/29/15 07/01/20 Bhakti Rodgers MD [address] [place] [id number] PCP - General Internal Medicine 07/02/20 documented as of this encounter
--- OUTSIDE RECORDS SUMMARY | 2024-08-13 17:11 | XMS_ITS | Encounter Summary ---
Author Organization [facility] Address [address] [place] [address] Care Team Providers Care Drapery Cutter Machine Name Role Phone Kizzy Archibald MD Primary Care Provider oJnathan Bhakti Smith MD Primary Care Provider [phone] Encounter Details Date Type Department Care Team Description 06/05/2015 Hospital Medical Records [address] [place] [address] Allen Baeza MD Social History Tobacco Use [...] on filedocumented in this encounter Care Teams Drapery Cutter Machine Relationship Specialty Start Date End Date Kizzy Archibald MD PCP - General Internal Medicine 05/29/15 07/01/20 Bhakti Rodgers MD [address] [place] [id number] PCP - General Internal Medicine 07/02/20 documented as of this encounter
--- OUTSIDE RECORDS SUMMARY | 2024-08-13 17:11 | XMS_ITS | Encounter Summary ---
Author Organization [facility] Address [address] [place] [address] Care Team Providers Care Bottling Equipment Sales Representative Name Role Phone Bhakti Rodgers MD Primary Care Provider [phone] Encounter Details Date Type Department Care Team Description 10/12/2022 Home Health Certification Medical Records [address] [place] [address] Social History Tobacco Use Types Packs/Day Years [...] on filedocumented in this encounter Care Teams Bottling Equipment Sales Representative Relationship Specialty Start Date End Date Bhakti Rodgers MD [address] [place] [address] [id number] PCP - General Internal Medicine 07/02/20 documented as of this encounter
--- NOTE | 2024-08-13 17:18 | PC.NURSE ---
Called Maryann, daughter of patient, to further inquire why patient was sent into the ED today. Per Maryann, patient seemed to be having a panic attack, unable to be soothed or redirected, Maryann called 911 because she was unable to calm her mother down. Patient currently resting quietly on stretcher awaiting for ED provider.
[2024-08-13] MEDS: LORazepam 1 MG TABLET PO (17:33)
--- NOTE | 2024-08-13 17:41 | PC.NURSE ---
Called pt.'s daughter Maryann, pt cleared for discharge, Maryann will come moss picker patient for discharge.
--- NOTE | 2024-08-13 17:56 | ED.GENADULT ---
HPI - General Adult General Chief complaint: General Medical Stated complaint: anxious, epigastric pt cannot describe pain Time Seen by Provider: 08/13/24 17:15 Source: patient Mode of arrival: EMS Limitations: no limitations History of Present Illness ED Provider: HPI narrative: Patient with history of anxiety and migraine headache her daughter was shouting at her patient felt very having a panic attack although had migraine headache earlier at home but none on arrival Related Data Home Medications ?Medication ?Instructions ?Recorded ?Confirmed blood sugar diagnostic (FreeStyle 09/28/22 04/12/24 Lite Strips) clonidine HCl 0.1 mg tablet 0.1 mg PO TID 09/28/22 06/16/24 pen needle, diabetic 32 gauge x 09/28/22 04/12/2405/13 (BD Ultra-Fine Micro Pen Needle) simvastatin 20 mg tablet 20 mg PO BEDTIME 09/28/22 06/16/24 aspirin 81 mg tablet,delayed 81 mg PO DAILY 10/01/22 06/16/24 release cholecalciferol (vitamin D3) 25 25 mcg PO DAILY 10/01/22 06/16/24 mcg (1,000 unit) tablet levothyroxine 125 mcg tablet 125 mcg PO DAILY@0600 04/14/23 06/16/24 gabapentin 100 mg capsule 100 mg PO TID 12/22/23 06/16/24 Previous Rx's ?Medication ?Instructions ?Recorded lorazepam 0.5 mg tablet (Ativan) 0.5 mg PO BID PRN anxiety 30 days 04/26/24 #45 tabs divalproex 125 mg tablet,delayed 125 mg PO BID 30 days #60 tabs 07/07/24 release (Depakote) whuiiyfnzl-eisvpkeoqmwlt-vzwuowat 1 tab PO Q6H PRN haeadace #20 tabs 08/13/24 50 mg-325 mg-40 mg tablet Allergies Allergy/AdvReac Type Severity Reaction Status Date / Time Iodinated Contrast Media Allergy Severe SEDATION,TA Verified 08/13/24 16:52 [IVP DYE] CHYCARDIA azithromycin Allergy Unknown Hives Verified 08/13/24 16:52 erythromycin base Allergy Unknown HIVES Verified 08/13/24 16:52 [ERYTHROMYCIN BASE] metformin AdvReac Unknown Diarrhea Verified 08/13/24 16:52 Review of Systems Review of Systems: Yes all other systems are reviewed and are negative PMFSH Past Medical History Medical History Migraine Type 2 diabetes mellitus CKD (chronic kidney disease) stage 2, GFR 60-89 ml/min Anxiety Obstructive sleep apnea Encephalitis Hypothyroid HTN (hypertension) HLD (hyperlipidemia) Diabetes Complicated migraine Surgical History Hx of left mastectomy Hx of cholecystectomy H/O section Family History Family History Mother Lung cancer Diabetes Depression Daughter Alcohol abuse Father FH: cholecystectomy Social History Social History Household Members: Children Housing: House Do you presently have visiting nurse or other home services: Yes Unable to assess alcohol history related to: Unable to respond Alcohol intake: never Comment: 1 TO 1 SITTER Patient Tobacco Use Status: Never used Tobacco Smoked in Last 30 Days: No e-Cigarette/Vaping Use: Never Used Second Hand Smoke Exposure: No Use of substances other than those prescribed or required for medical reasons: No Advance Directives: No Advance Directives Information Provided: Yes Advance Directives Date on File: 09/28/22 Do you have a plan to hurt others: No Plan service: No Current occupational status: retired Physical Exam ED Vital Signs: Vital Signs - 24 hr 08/13/24 16:50 08/13/24 18:00 08/13/24 18:16 Temperature 98.3 F 98.3 F 98.3 F Pulse Rate 79 73 73 Respiratory Rate 16 16 16 Blood Pressure 156/71 H 149/63 H 149/63 H Pulse Oximetry 98 98 98 Oxygen Delivery Method Room Air Room Air Room Air BMI result Body Mass Index 45.3 Appearance: Alert. Oriented X3. Very anxious tearful, no headache now Eyes: PERRLA, No Nystagmus ENT: Pharynx normal. Oral Mucosa moist Neck: Normal inspection. Neck supple. CVS: Normal heart rate and rhythm. Pulses normal. Respiratory: No respiratory distress. Equal air entry bilateral, no wheezing/rales/rhonchi Abdomen: Soft and nontender. Bowel sounds are present, no mass palpable, no CVA tenderness Skin: Skin warm and dry. Normal skin color. Normal skin turgor. Extremities: No lower extremity edema. No calf tenderness Neuro: Oriented X 3. No motor deficit. No sensory deficit.No cerebellar signs , cranial nerves II-XII intact Medications Administered Discontinued Medications Generic Name Dose Route Start Last Admin Trade Name Ulyssesq PRN Reason Stop Dose Admin Lorazepam 1 mg 08/13/24 17:26 08/13/24 17:33 Lorazepam 1 Mg Tablet PO 08/13/24 17:27 1 mg ONCE ONE Administration Medical Decision Making Medical Decision Making MDM Narrative: Patient's anxiety/panic attack likely the cause for the symptoms although does have migraine headache takes Ubrelvy advised to continue same will give prescription of Fioricet family's bedside will take the patient home patient does have the the medication at home Discharge Plan Discharge Clinical Impression: Panic attack as reaction to stress Migraine Qualifiers: Migraine type: migraine (< 15 days per month) with aura Status migrainosus presence: with status migrainosus Intractability: not intractable Qualified Code(s): G43.101 - Migraine with aura, not intractable, with status migrainosus Patient Disposition: Home, Self-Care Instructions: Migraine Headache (ED), Panic Attack (ED) Additional Instructions: Continue take your medication for migraine headache as prescribed by your PCP Fioricet for frequent headaches Continue take your lorazepam for anxiety and ubrelvy for headache Prescriptions: New wrfjxfjtgw-lgfuqjqcwaaeu-fxuj 50-325-40 mg tablet 1 tab PO Q6H PRN (Reason: haeadace) Qty: 20 0RF No Action lorazepam [Ativan] 0.5 mg tablet 0.5 mg PO BID PRN (Reason: anxiety) 30 Days Qty: 45 3RF divalproex [Depakote] 125 mg tablet,delayed release (DR/EC) 125 mg PO BID 30 Days Qty: 60 6RF clonidine HCl 0.1 mg tablet 0.1 mg PO TID (DME) FreeStyle Lite Strips Strip 1 strip MISCELLANEOUS TID simvastatin 20 mg tablet 20 mg PO BEDTIME (DME) pen needle, diabetic [BD Ultra-Fine Micro Pen Needle] 32 gauge x 1/4 needle MISCELLANEOUS levothyroxine 125 mcg tablet 125 mcg PO DAILY@0600 aspirin 81 mg Tablet,Delayed Release (Dr/Ec) 81 mg PO DAILY cholecalciferol (vitamin D3) 25 mcg (1,000 unit) Tablet 25 mcg PO DAILY gabapentin 100 mg capsule 100 mg PO TID Interventions: ED Discharge Assessment Last Done: 08/13/24 18:16 Discharge Date/Time: 08/13/24 18:17 Print Language: Liberian
[2024-08-13 18:00] VITALS: BP 149/63; PULSE 73; RESP 16; TEMP 36.8; O2SAT 98
[2024-08-13 18:16] VITALS: BP 149/63; PULSE 73; RESP 16; TEMP 36.8; O2SAT 98
== END 2024-08-13 18:17 | disposition home or self-care (01) ==
PROVIDERS: Emergency Provider Internal Medicine; PCP Internal Medicine
DX: F43.0 Acute stress reaction (principal); G43.101 Migraine with aura, not intractable, with status migrainosus; Z79.899 Other long term (current) drug therapy
CPT/HCPCS: 99283; 99284

== ENCOUNTER 2024-09-17 02:19 | Emergency (ER) | payer MEDICARE, SELFPAY ==
--- NOTE | ~2024-09-17 | CT_ITS ---
CLINICAL HISTORY: Lower abdominal pain CT abdomen and pelvis without contrast Comparison: CT/SR - CT ABDOMEN PELVIS WO IV CON - 05/07/24 09:44 EST Findings: Atelectasis with bilateral pleural plaques. Tiny bilateral pulmonary nodules measuring no more than 3 mm. Per Fleischner criteria: Low-risk patients: No routine follow-up required. High-risk patients: Optional CT at 12 months. Hepatomegaly with steatosis. Thickening of the adrenal glands with small left-sided adrenal gland nodule measuring 1.3 cm with an average Hounsfield unit of 4 likely an adenoma. No urolithiasis. No bowel obstruction, pneumoperitoneum, or pneumatosis. Mildly diffuse skin thickening along the anterior abdominal wall. Central mesenteric fat stranding with prominent lymph nodes, suggestive of mesenteric panniculitis. Scattered colonic diverticulosis without diverticulitis or colitis. Appendix not seen. Distended bladder. No acute fracture. Postcholecystectomy. IMPRESSION: 1. Possible mesenteric panniculitis. 2. Additional findings as described. This document has been electronically signed by: Marty Thompson MD on 09/17/2024 05:27:03
[2024-09-17 02:22] VITALS: BP 147/80; PULSE 85; RESP 16; TEMP 37; O2SAT 95; BMI 41.9
[2024-09-17 02:55] LABS: MANUAL DIFF FLAG NO
[2024-09-17 02:56] LABS: Basophils Percent Auto 0.4 % (0-2); Eosinophils Absolute Auto 0.2 X10*3/uL (0.0-0.4); Eosinophils Percent Auto 2.5 % (0-4); Hematocrit 36.7 % (37.0-47.0); Hemoglobin 12.7 g/dl (12.0-16.0); Imm Gran Abs Auto 0.04 X10*3/uL (0.00-0.03); Imm Gran Pct Auto 0.4 % (0.0-0.4); Lymphocytes Absolute Auto 3.1 X10*3/uL (1.2-4.9); Lymphocytes Percent Auto 32.2 % (20-40); Mean Corpuscular HGB Conc 34.6 g/dl (31.0-35.0); Mean Corpuscular Hemoglobin 29.9 pg (27.0-33.0); Mean Corpuscular Volume 86.4 fL (80.0-98.0); Mean Platelet Volume 11.4 fL (9.4-12.3); Monocytes Absolute Auto 0.8 X10*3/uL (0.1-1.2); Monocytes Percent Auto 8.6 % (2-11); Neutrophils Absolute Auto 5.4 x10*3/uL (2.0-8.3); Neutrophils Percent Auto 55.9 % (45-73); Platelet Count 272 X10*3/uL (160-400); Red Blood Count 4.25 X10*6/uL (4.20-5.50); Red Cell Distribution Width 12.8 % (11.0-16.0); White Blood Count 9.7 X10*3/uL (4.8-10.8)
[2024-09-17 03:13] LABS: Alanine Aminotransferase 51 U/L (0-31); Albumin Level 3.8 g/dL (3.5-5.0); Alkaline Phosphatase 130 U/L (39-117); Anion Gap 12 (12-20); Aspartate Amino Transferase 57 U/L (5-31); Blood Urea Nitrogen 22 mg/dL (9-16); Calcium 9.2 mg/dL (8.4-10.2); Carbon Dioxide 26 mmol/L (22-29); Chloride 106 mmol/L (96-108); Creatinine Clr Calc Pharmacy 56.8; Estimated Glomerular Filt Rate 49; Glucose Random 150 mg/dL (60-115); Lipase 12 U/L (8-78); Potassium 4.2 mmol/L (3.3-5.1); Sodium 140 mmol/L (135-145); Total Protein 7.3 g/dL (6.5-8.0)
--- NOTE | 2024-09-17 03:49 | PC.NURSE ---
Pt is unable to provide urine sample at this time.
--- NOTE | 2024-09-17 04:26 | ED_ITS ---
HPI - Abdominal Pain General Chief Complaint: Abdominal Pain Stated Complaint: abd pain Time Seen by Provider: 09/17/24 04:26 Source: patient Mode of arrival: ambulatory Limitations: no limitations History of Present Illness ED Provider: HPI narrative: Patient has chronic back pain followed by as outpatient had MRI last week comes here for worsening of the pain at the same location along with pain in the right lower abdomen since last night no nausea no vomiting no fever no chills no urinary symptoms Related Data Home Medications ?Medication ?Instructions ?Recorded ?Confirmed blood sugar diagnostic (FreeStyle 09/28/22 04/12/24 Lite Strips) clonidine HCl 0.1 mg tablet 0.1 mg PO TID 09/28/22 06/16/24 pen needle, diabetic 32 gauge x 09/28/22 04/12/2405/13 (BD Ultra-Fine Micro Pen Needle) simvastatin 20 mg tablet 20 mg PO BEDTIME 09/28/22 06/16/24 aspirin 81 mg tablet,delayed 81 mg PO DAILY 10/01/22 06/16/24 release cholecalciferol (vitamin D3) 25 25 mcg PO DAILY 10/01/22 06/16/24 mcg (1,000 unit) tablet levothyroxine 125 mcg tablet 125 mcg PO DAILY@0600 04/14/23 06/16/24 gabapentin 100 mg capsule 100 mg PO TID 12/22/23 06/16/24 Previous Rx's ?Medication ?Instructions ?Recorded lorazepam 0.5 mg tablet (Ativan) 0.5 mg PO BID PRN anxiety 30 days 04/26/24 #45 tabs divalproex 125 mg tablet,delayed 125 mg PO BID 30 days #60 tabs 07/07/24 release (Depakote) wnasprrepo-rdhfnxggnytaz-uuatnvxc 1 tab PO Q6H PRN haeadace #20 tabs 08/13/24 50 mg-325 mg-40 mg tablet Allergies Allergy/AdvReac Type Severity Reaction Status Date / Time Iodinated Contrast Media Allergy Severe SEDATION,TA Verified 09/17/24 02:27 [IVP DYE] CHYCARDIA azithromycin Allergy Unknown Hives Verified 09/17/24 02:27 erythromycin base Allergy Unknown HIVES Verified 09/17/24 02:27 [ERYTHROMYCIN BASE] metformin AdvReac Unknown Diarrhea Verified 09/17/24 02:27 Review of Systems Review of Systems Yes all other systems are reviewed and are negative [facility] Past Medical History Medical History Migraine Type 2 diabetes mellitus CKD (chronic kidney disease) stage 2, GFR 60-89 ml/min Anxiety Obstructive sleep apnea Encephalitis Hypothyroid HTN (hypertension) HLD (hyperlipidemia) Diabetes Complicated migraine Surgical History Hx of left mastectomy Hx of cholecystectomy H/O section Family History Family History Mother Lung cancer Diabetes Depression Daughter Alcohol abuse Father FH: cholecystectomy Social History Social History Household Members: Children Housing: House Do you presently have visiting nurse or other home services: Yes Unable to assess alcohol history related to: Unable to respond Alcohol intake: never Comment: 1 TO 1 SITTER Patient Tobacco Use Status: Never used Tobacco Smoked in Last 30 Days: No e-Cigarette/Vaping Use: Never Used Second Hand Smoke Exposure: No Use of substances other than those prescribed or required for medical reasons: No Advance Directives: Yes Advance Directives on File: Yes Advance Directives Date on File: 09/28/22 Do you have a plan to hurt others: No Plan service: No Current occupational status: retired Physical Exam ED Vital Signs: Vital Signs - 24 hr 09/17/24 02:22 09/17/24 06:36 Temperature 98.6 F 97.5 F Pulse Rate 85 71 Respiratory Rate 16 16 Blood Pressure 147/80 H 149/54 H Pulse Oximetry 95 96 Oxygen Delivery Method Room Air Room Air BMI result Body Mass Index 41.9 Appearance: Alert. Oriented X3. OBese Eyes: PERRLA, No Nystagmus ENT: Pharynx normal. Oral Mucosa moist Neck: Normal inspection. Neck supple. CVS: Normal heart rate and rhythm. Pulses normal. Respiratory: No respiratory distress. Equal air entry bilateral, no wheezing/rales/rhonchi Abdomen: Soft and deep tenderness right lower abdomen no rebound tenderness or guarding, Bowel sounds are present, no mass palpable, no CVA tenderness Back: Diffuse lower lumbar tenderness SLR test negative bilateral Skin: Skin warm and dry. Normal skin color. Normal skin turgor. Extremities: No lower extremity edema. No calf tenderness Neuro: Oriented X 3. No motor deficit. No sensory deficit.No cerebellar signs , cranial nerves II-XII intact Medical Decision Making Medical Decision Making [facility] Narrative: Patient has chronic back pain had of follow up with back specialist PCP had the same MRI last week on tramadol for pain patient advised to continue his medication follow up workup in the ED essentially negative for acute Differential Diagnosis Differential Diagnoses: The differential diagnosis associated with the presentation includes Lab Data [facility] Lab Attestation statement: I reviewed the patient's lab results. 09/17/24 02:50 09/17/24 02:50 Labs: Lab Results 09/17/24 Range/Units 02:50 WBC 9.7 (4.8-10.8) X10*3/uL RBC 4.25 (4.20-5.50) X10*6/uL Hgb 12.7 (12.0-16.0) g/dl Hct 36.7 L (37.0-47.0) % MCV 86.4 (80.0-98.0) fL MCH 29.9 (27.0-33.0) pg MCHC 34.6 (31.0-35.0) g/dl RDW 12.8 (11.0-16.0) % Plt Count 272 (160-400) X10*3/uL MPV 11.4 (9.4-12.3) fL Immature Gran % (Auto) 0.4 (0.0-0.4) % Neut % (Auto) 55.9 (45-73) % Lymph % (Auto) 32.2 (20-40) % Burnet % (Auto) 8.6 (2-11) % Eos % (Auto) 2.5 (0-4) % Baso % (Auto) 0.4 (0-2) % Lymph # (Auto) 3.1 (1.2-4.9) X10*3/uL Burnet # (Auto) 0.8 (0.1-1.2) X10*3/uL Eos # (Auto) 0.2 (0.0-0.4) X10*3/uL Baso # (Auto) 0.0 (0.0-0.2) X10*3/uL Abs Immat Gran (auto) 0.04 H (0.00-0.03) X10*3/uL Absolute Neuts (auto) 5.4 (2.0-8.3) x10*3/uL Absolute Nucleated RBC 0.000 (0.0-0.012) X10*3/uL Nucleated RBC % (auto) 0.0 (0.0-0.2) /100WBC Sodium 140 (135-145) mmol/L Potassium 4.2 (3.3-5.1) mmol/L Chloride 106 (96-108) mmol/L Carbon Dioxide 26 (22-29) mmol/L Anion Gap 12 (12-20) BUN 22 H (9-16) mg/dL Creatinine 1.09 (0.5-1.4) mg/dL Estim Creat Clear Calc 56.8 Estimated GFR 49 Random Glucose 150 H (60-115) mg/dL Calcium 9.2 D (8.4-10.2) mg/dL Total Bilirubin 1.0 (0.0-1.0) mg/dL AST 57 H (5-31) U/L ALT 51 H (0-31) U/L Alkaline Phosphatase 130 H (39-117) U/L Total Protein 7.3 (6.5-8.0) g/dL Albumin 3.8 (3.5-5.0) g/dL Lipase 12 (8-78) U/L Radiology Impression Discussion of test interpretation with radiology: I have reviewed the radiologist's reading. Medications Administered Discontinued Medications Generic Name Dose Route Start Last Admin Trade Name Freq PRN Reason Stop Dose Admin Hydromorphone HCl 2 mg 09/17/24 06:22 09/17/24 06:30 Hydromorphone Hcl 2 Mg/Ml Vial IM 09/17/24 06:23 2 mg ONCE ONE Administration Protocol Morphine Sulfate 15 mg 09/17/24 04:35 09/17/24 05:06 Morphine Sulfate Immed Release 15 Mg Tablet PO 09/17/24 04:36 15 mg ONCE ONE Administration Discharge Plan Discharge Clinical Impression: Chronic back pain Patient Disposition: Home, Self-Care Instructions: Chronic Back Pain (DC) Additional Instructions: Continue to take your tramadol 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 Prescriptions: No Action lorazepam [Ativan] 0.5 mg tablet 0.5 mg PO BID PRN (Reason: anxiety) 30 Days Qty: 45 3RF divalproex [Depakote] 125 mg tablet,delayed release (DR/EC) 125 mg PO BID 30 Days Qty: 60 6RF obxqhddcbf-hsipctmnnjvdy-xynx 50-325-40 mg tablet 1 tab PO Q6H PRN (Reason: haeadace) Qty: 20 0RF clonidine HCl 0.1 mg tablet 0.1 mg PO TID (DME) FreeStyle Lite Strips Strip 1 strip MISCELLANEOUS TID simvastatin 20 mg tablet 20 mg PO BEDTIME (DME) pen needle, diabetic [BD Ultra-Fine Micro Pen Needle] 32 gauge x 1/4 needle MISCELLANEOUS levothyroxine 125 mcg tablet 125 mcg PO DAILY@0600 aspirin 81 mg Tablet,Delayed Release (Dr/Ec) 81 mg PO DAILY cholecalciferol (vitamin D3) 25 mcg (1,000 unit) Tablet 25 mcg PO DAILY gabapentin 100 mg capsule 100 mg PO TID Print Language: Uzbek
[2024-09-17] MEDS: Morphine Sulfate Immed Release 15 MG TABLET PO (05:06)
[2024-09-17] MEDS: HYDROmorphone HCl 2 MG/ML VIAL IM (06:30)
[2024-09-17 06:36] VITALS: BP 149/54; PULSE 71; RESP 16; TEMP 36.4; O2SAT 96
[2024-09-17 07:11] VITALS: BP 149/54; PULSE 71; RESP 16; TEMP 36.4; O2SAT 96
== END 2024-09-17 07:16 | disposition home or self-care (01) ==
PROVIDERS: Emergency Provider Internal Medicine; PCP Internal Medicine
DX: R10.2 Pelvic and perineal pain (principal); M54.50 Low back pain, unspecified; R10.9 Unspecified abdominal pain; Z79.899 Other long term (current) drug therapy
CPT/HCPCS: 36415; 74176; 80053; 83690; 85025; 96372; 99284; J1171

== ENCOUNTER → 2024-09-17 04:35 | Outpatient (BNV) | payer MEDICARE, SELFPAY | PROVIDERS: Emergency Provider Internal Medicine; PCP Internal Medicine; Visit Provider Radiology Diagnostic Radiology | DX: R10.30 Lower abdominal pain, unspecified (principal) | CPT/HCPCS: 74176 ==

== ENCOUNTER 2024-10-10 08:46 | Outpatient (AMB) | payer MEDICARE, SELFPAY ==
--- NOTE | 2024-10-10 09:01 | MHC.OFFVIS ---
Vital Signs 10/10/24 09:02 Height 5 ft 4 in Weight 240 lb BMI 41.2 BP 122/60 Blood Pressure Location Rt brachial Position Sitting Pulse 93 Pulse Source Pulse Oximeter Pulse Oximetry (%) 97 Oxygen Delivery Method Room Air Intake Visit Reasons: Follow Up 6mo Intake Note: Patient presents 6 month follow up for sleep difficulties. Ld Teacher Required: No Accompanied by: Spouse Allergies Iodinated Contrast Media [IVP DYE] Allergy (Severe, Verified 10/10/24 09:05) SEDATION,TACHYCARDIA azithromycin Allergy (Unknown, Verified 10/10/24 09:05) Hives erythromycin base [ERYTHROMYCIN BASE] Allergy (Unknown, Verified 10/10/24 09:05) HIVES metformin Adverse Reaction (Unknown, Verified 10/10/24 09:05) Diarrhea Medication List - Last Reconciled 10/10/24 by ANTHONY Almonte aspirin 81 mg PO DAILY blood sugar diagnostic (FreeStyle Lite Strips) vatnwfhgdi-zbsrlfzgjzaaa-zxzw 50-325-40 mg 1 tab PO Q6H PRN cholecalciferol (vitamin D3) 25 mcg PO DAILY clonidine HCl 0.1 mg PO TID divalproex (Depakote) 125 mg PO BID 30 days gabapentin 100 mg PO TID levothyroxine 125 mcg PO DAILY@0600 lorazepam (Ativan) 0.5 mg PO BID PRN 30 days pen needle, diabetic (BD Ultra-Fine Micro Pen Needle) simvastatin 20 mg PO BEDTIME HPI Comments Details: 73-yr-old female presents for f/u of genetic testing for HM. 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 Pt reports she is having approximately 4 mild-moderate migraine attacks per month. Her last full hemiplegic migraine attack was about a month ago- hisband reports she had to lay down and sleep all day. She is aware of the first sign of the attack and using lorazepam and ubrlevy w/ good effect. She is usng scheduled lorazepam, which is helping her mood overall. She is working w/ pain management for chronic arthritic back pain- was recently started on Tramadol by PA at [facility]. Pt states her walking is slow. 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 No falls. She has not tried CD-LD yet. She did have a migarine and panic attack in early August, went to [facility]- per note migraine had resolved, and was d/c'd home on home ubrelvy and new prn Fioricet. 05/30/2024, brain david SPECT study was positive, showed slight decreased activity within the left putamen. There was symmetric activity in the anterior aspect of the caudate nuclei bilaterally. 04/20/2024 lab results were notable for elevated random glucose 342. Elevated BUN 20- baseline, creatinine 0.91 WNL Elevated AST 56, ALT 68, alk-phos 125- baseline for patient. BLUE positive 1:80, nuclear, dense fine speckled (September of 2022 BLUE positive 1:80 with nuclear homogeneous pattern). CBC-WNL, with HCT low at 35.9-baseline. ESR, vitamin B1, vitamin B12, MMA level, folate, homocystine, TSH- WNL Today, patient and state that they are not very concerned about patient's memory. Fair most concerned about patient's chronic left shoulder pain, which started 3 years ago following left breast mastectomy. They state they were told this was present shoulder. They have seen physiatry before at [facility] in [place]. They were told she was not a candidate for cortisone injection as her blood sugars are not well controlled. She has difficulties describing the pain, but is always there, and it interferes with her sleep, she needs to sleep always on her right side. She does note that she continues to shake, however states this is only when her blood sugars are off. Patient is not concerned about her walking, states she does not use a device other than walking with a grocery cart for stability when shopping. She denies any recent falls. She can have lightheadedness with the migraine attacks, but no usual orthostatic lightheadedness. 04/12/2024, previous HPI: 73-yr-old female presents for f/u visit for migraine, accompanied by her dtr. Maryann. Dtr reports that pt has migraine- her typical migraine a/w inability to speak, loss of body control, slurred speech, fever, and cold sweats. Her last full attack was in Jan, patient was treated at [facility]. Stopped Ajovy as pt still seemed to be having the migraine episodes. They are using Ubrelvy and lorazepam p.r.n. at onset of milder attacks, which does seem to be helpful. The Ubrelvy does seem to cause some abdominal bubbling. Daughter notes that she has just started to have episode of right sided hemiplegic migraine, her older sister has similar symptoms, and her mother's sister also has symptoms of hemiplegic migraine. They have never had genetic testing. Her daughter is concerned about patient's memory. Patient is often home alone. Pt has been crying more. The littlest things upset her. States she is repeating herself and hesitating to initiate speech at times. Sometimes she stares off into space, more so after taking her divalproex dose. She recently went without checking her blood sugar for a few days because she had ran out of her test strips. Her daughter does help her manage her medications and fill her pill boxes. She went to her sister's house for Thanksgiving, and did not know where she was. She is not sleeping well. During cognitive eval today, patient has visible tremor. Patient states she has had a tremor for some time. She endorses hyposmia for a long time, soft speech, occasional orthostatic lightheadedness, generalized stiffness, sleep talking, sleep behaviors, sleep apnea but does not use a CPAP machine. She denies hallucinations, constipation. [facility] Medical History (Updated 10/22/24 @ 17:44 by ANTHONY Almonte) Fever Fever of unknown origin Encephalopathy acute Encephalopathy acute Encephalopathy Hyperthermia Hemiplegic migraine Left-sided weakness Malaise Medication side effect Status migrainosus Migraine Type 2 diabetes mellitus CKD (chronic kidney disease) stage 2, GFR 60-89 ml/min Anxiety Obstructive sleep apnea Encephalitis Hypothyroid HTN (hypertension) HLD (hyperlipidemia) Diabetes Complicated migraine Surgical History Hx of left mastectomy Hx of cholecystectomy H/O section Family History Mother Lung cancer Diabetes Depression Daughter Alcohol abuse Father FH: cholecystectomy Social History Household Members: Children Housing: House Do you presently have visiting nurse or other home services: Yes Unable to assess alcohol history related to: Unable to respond Alcohol intake: never Comment: 1 TO 1 SITTER Patient Tobacco Use Status: Never used Tobacco e-Cigarette/Vaping Use: Never Used Second Hand Smoke Exposure: No Advance Directives Date on File: 09/28/22 service: No Current occupational status: retired Physical Exam Vital Signs: Last Vital Signs Pulse 93 10/10/24 09:02 BP 122/60 10/10/24 09:02 Pulse Ox 97 10/10/24 09:02 Oxygen Delivery Method Room Air 10/10/24 09:02 BMI result Body Mass Index 41.2 Assessment & Plan Assessment & Plan (1) Familial hemiplegic migraine type 2: Comment: 08/25/24 HM Genetic testing: positive for AT, c.2723G>A(p.[id number]), heterozygous missense, autosomal dominant- c/w Familial HM Type 2. Pt has a child w/ migraine s/s s/w HM. FHM type 2 attacks can involve, weakness, fever, seizure, comma, and cognitive impairment including MR. Attacks may triggered by stress, mild head traumas, and conventional cerebral angiography. Note- During a HM attack w/ fever, CSF studies may show lymphocytosis up to 350 cell/mm and CSF protein up to 228mg/dl. Code(s): G43.409 - Hemiplegic migraine, not intractable, without status migrainosus Category: Medical (2) Migraine with aura: Comment: vs episodes of malignant catatonia- elevated CK > 2000 during August hosp admission, however attack responded to Imitrex and Lorazepam. Code(s): G43.109 - Migraine with aura, not intractable, without status migrainosus Category: Medical (3) Migraine: Comment: suggestive of hemiplegic migraine Code(s): G43.909 - Migraine, unspecified, not intractable, without status migrainosus Category: Medical Qualifiers: Intractability: not intractable Migraine type: migraine (< 15 days per month) with aura Status migrainosus presence: with status migrainosus Qualified Code(s): G43.101 - Migraine with aura, not intractable, with status migrainosus (4) Tremor: Comment: Positive DaTSCAN. Tremor onset preceded starting Depakote tx. Code(s): R25.1 - Tremor, unspecified Category: Medical (5) Mood disorder: Code(s): F39 - Unspecified mood [affective] disorder Category: Medical (6) Sleep difficulties: Code(s): G47.9 - Sleep disorder, unspecified Category: Medical (7) Cognitive disorder: Code(s): F09 - Unspecified mental disorder due to known physiological condition Category: Medical Plan For familial hemiplegic migraine, type 2: Reviewed results of [facility] genetic study, results of which showed were positive for an AT mutation, c.2723G>A(p.[id number]), heterozygous missense, autosomal dominant. Pt's h/o of prolonged reversible migraine attacks w/ weakness, fever, altered level of consciousnious, is c/w a HM type 2 presentation. Additionally, pt's dtr reports also having prolonged migraine w/ aura/weakness. Thus, discussed that these results in consideration of her personal and family history are c/w a dx of FHM type 2. Pt has informed one of her children of this diagnosis. Pt has another child, known to our practice, who pt states we can inform of these genetic results but the pt herself is not currently communicating w/ her child. Considerations specific to FHM: Stress and even mild head injury may trigger HM attacks. Conventional cerebral angiography would now be considered contraindicated for this pt, as this may trigger a hemiplegic migraine attack, however pt may undergo modern MRA/CTA. During a HM attack w/ fever, CSF studies may show lymphocytosis up to 350 cell/mm and CSF protein up to 228mg/dl. Continue Depakote 125mg bid- for mood, migraine. Continue Ubrelvy prn for now- as I would avoid triptans d/t variable BP/HTN. Continue Lorazepam 0.5mg- may take qhs and 1 extra tab per day prn- may take at onset of migraine attack w/ Ubrelvy. Previous migraine trials: venlafaxine, also topiramate, risperdal, primidone, lisinopril. Future considerations: Increasing Depakote, trialing verapamil or Acetazolamide, Triptan trial if HTN stabilizes (no longer considered a contraindication in HM ast the aura isc onsidered CSD rather than secondary to a vascular process). For migraine with aura: Acute treatment: Continue Ubrogepant (Ubrelvy) 100mg tab, 1/2 - 1 tab (50-100mg) at onset of headache, may repeat in 2 hours. Max of 2 tabs (200mg) per 24 hours. May adjunct with OTC Tylenol 650-1000mg q 4-6 hours as needed. Contraindications: all triptans and DHE d/t poorly controlled HTN. Preventive treatment: Continue Depakote as above. 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 05/26/[address] without contrast- did not show any acute intracranial findings and no significant atrophy like change or white matter disease. Follow-up w/ rheumatology as scheduled. Hold carbidopa levodopa order for now- pt did not start. Will follow-up upon review of above and patient to follow-up in clinic in 3-6 months or sooner prn. Orders: Orders Complete Blood Count Auto Diff 10/10/24 G43.101 - Migraine with aura, not intractable, with status migrainosus, I10 - Essential (primary) hypertension, D64.9 - Anemia, unspecified Comprehensive Met. Panel 10/10/24 G43.101 - Migraine with aura, not intractable, with status migrainosus, I10 - Essential (primary) hypertension, D64.9 - Anemia, unspecified Valproate 10/10/24 G43.101 - Migraine with aura, not intractable, with status migrainosus, I10 - Essential (primary) hypertension, D64.9 - Anemia, unspecified Medications: New ubrogepant (Ubrelvy) take at onset of migraine, may repeat in 2hrs (may take w/ Lorazepam and Tylenol) 50 - 100 mg (0.5 - 1 x 100 mg) PO BID PRN 16 tabs 6RF migraine headache 30 days Discontinued sdkmwzhmlc-xallwnmjeqzvv-fuwk 50-325-40 mg Discontinued Reason: Doctor's Order 1 tab PO Q6H PRN 20 tabs 0RF haeadace Coding Level of Care Code Est Pt Level 4 (13086) Diagnoses Familial hemiplegic migraine type 2 G43.409 Migraine with aura G43.109 Migraine with aura and with status migrainosus, not intractable G43.101 Intractability: not intractable Migraine type: migraine (< 15 days per month) with aura Status migrainosus presence: with status migrainosus Tremor R25.1 Mood disorder F39 Sleep difficulties G47.9 Cognitive disorder F09
[2024-10-10 09:02] VITALS: BP 122/60; PULSE 93; O2SAT 97; BMI 41.2
--- OUTSIDE RECORDS SUMMARY | 2024-10-10 09:19 | XMS_ITS | Encounter Summary ---
Author Organization [employer] [facility] Address [address] [place] [address] Care Team Providers Care Assurance Assistant Name Role Phone Bhakti Rodgers MD Primary Care Provider [phone] Encounter Details Date Type Department Care Team Description 01/22/2022 Hospital Medical Records [address] [place] [address] [facility] Social History Tobacco Use Types Packs/Day [...] on filedocumented in this encounter Care Teams Assurance Assistant Relationship Specialty Start Date End Date Bhakti Rodgers MD [address] [place] [address] [id number] PCP - General Internal Medicine 07/02/20 documented as of this encounter
== END 2024-10-10 10:11 | disposition home or self-care (01) ==
LOC: HO.HSMS 08:47
PROVIDERS: PCP Internal Medicine; Visit Provider Nurse Practitioner Family
DX: G43.409 Hemiplegic migraine, not intractable, without status migrainosus (principal); G43.109 Migraine with aura, not intractable, without status migrainosus; G43.101 Migraine with aura, not intractable, with status migrainosus; R25.1 Tremor, unspecified; F39 Unspecified mood [affective] disorder; G47.9 Sleep disorder, unspecified; R41.89 Other symptoms and signs involving cognitive functions and awareness
CPT/HCPCS: 99214

== ENCOUNTER → 2024-10-10 08:46 | Outpatient (BNVA) | payer MEDICARE, SELFPAY | PROVIDERS: PCP Internal Medicine; Visit Provider Nurse Practitioner Family | DX: G43.401 Hemiplegic migraine, not intractable, with status migrainosus (principal); G43.101 Migraine with aura, not intractable, with status migrainosus; R25.1 Tremor, unspecified; F39 Unspecified mood [affective] disorder; G47.9 Sleep disorder, unspecified; F09 Unspecified mental disorder due to known physiological condition; I10 Essential (primary) hypertension; D64.9 Anemia, unspecified | CPT/HCPCS: 99212 ==

== ENCOUNTER 2024-10-10 10:16 | Outpatient (REF) | payer MEDICARE, SELFPAY ==
[2024-10-10 18:55] LABS: Alanine Aminotransferase 47 U/L (0-31); Alkaline Phosphatase 111 U/L (39-117); Anion Gap 14 (12-20); Aspartate Amino Transferase 57 U/L (5-31); Bilirubin Total 1.3 mg/dL (0.0-1.0); Blood Urea Nitrogen 22 mg/dL (9-16); Calcium 9.4 mg/dL (8.4-10.2); Carbon Dioxide 29 mmol/L (22-29); Chloride 106 mmol/L (96-108); Estimated Glomerular Filt Rate 43; Glucose Random 172 mg/dL (60-115); Mean Corpuscular Hemoglobin 29.7 pg (27.0-33.0); Monocytes Absolute Auto 0.8 X10*3/uL (0.1-1.2); PLT CLUMP 1; SCAN SMEAR FLAG 1; Sodium 144 mmol/L (135-145); Total Protein 7.4 g/dL (6.5-8.0)
[2024-10-10 18:56] LABS: Basophils Percent Auto 0.4 % (0-2); Eosinophils Absolute Auto 0.2 X10*3/uL (0.0-0.4); Eosinophils Percent Auto 1.9 % (0-4); Hematocrit 38.3 % (37.0-47.0); Hemoglobin 12.5 g/dl (12.0-16.0); Imm Gran Abs Auto 0.04 X10*3/uL (0.00-0.03); Imm Gran Pct Auto 0.4 % (0.0-0.4); Lymphocytes Absolute Auto 3.3 X10*3/uL (1.2-4.9); Lymphocytes Percent Auto 34.8 % (20-40); MANUAL DIFF FLAG SCAN; Mean Corpuscular HGB Conc 32.6 g/dl (31.0-35.0); Mean Platelet Volume 12.7 fL (9.4-12.3); Monocytes Percent Auto 8.4 % (2-11); Neutrophils Absolute Auto 5.1 x10*3/uL (2.0-8.3); Neutrophils Percent Auto 54.1 % (45-73); Red Blood Count 4.21 X10*6/uL (4.20-5.50); Red Cell Distribution Width 13.4 % (11.0-16.0)
[2024-10-10 18:59] LABS: White Blood Count 9.5 X10*3/uL (4.8-10.8)
[2024-10-10 19:12] LABS: Valproate < 12.5 mcg/mL (50.0-100.0)
[2024-10-10 20:20] LABS: Platelet Count 255 X10*3/uL (160-400); SLIDE REVIEW VERIFIED
== END 2024-10-10 10:17 | disposition home or self-care (01) ==
LOC: HO.HKASLDS 10:16
PROVIDERS: Visit Provider Nurse Practitioner Family
DX: G43.101 Migraine with aura, not intractable, with status migrainosus (principal); I10 Essential (primary) hypertension; D64.9 Anemia, unspecified
CPT/HCPCS: 36415; 80053; 80164; 85025

== ENCOUNTER 2024-10-18 08:31 | Outpatient (REF) | payer MEDICARE, SELFPAY ==
--- OUTSIDE RECORDS SUMMARY | 2024-10-18 08:47 | XMS_ITS | Encounter Summary ---
Author Organization [employer] [facility] Address [address] [place] [address] Care Team Providers Care Charge Attendant Name Role Phone Bhakti Rodgers MD Primary Care Provider [phone] Encounter Details Date Type Department Care Team Description 01/22/2022 Hospital Medical Records [address] [place] [address] [facility] Social History Tobacco Use Types [...] on filedocumented in this encounter Care Teams Charge Attendant Relationship Specialty Start Date End Date Bhakti Rodgers MD [address] [place] [address] [phone] PCP - General Internal Medicine 07/02/20 documented as of this encounter
[2024-10-18 10:25] LABS: C Reactive Protein 0.51 mg/dL (< or = 0.50)
[2024-10-18 10:59] LABS: Folate 8.6 ng/mL (> or = 4.0)
[2024-10-18 11:27] LABS: Erythrocyte Sedimentation Rate 23 MM/HR (0-20)
[2024-10-19 19:53] LABS: Complement C3 199 mg/dL (83-193)
[2024-10-24 18:03] LABS: Anti DNA DS Antibody 3 IU/mL; Antibody to SS-A Antigen <1.0 NEG AI (<1.0 NEG); Antibody to SS-B Antigen <1.0 NEG AI (<1.0 NEG)
== END 2024-10-18 08:32 | disposition home or self-care (01) ==
LOC: HO.LAB 08:31
PROVIDERS: PCP Internal Medicine; Visit Provider Nurse Practitioner Family
DX: R76.8 Other specified abnormal immunological findings in serum (principal); R25.1 Tremor, unspecified; D64.9 Anemia, unspecified; I10 Essential (primary) hypertension; F09 Unspecified mental disorder due to known physiological condition
CPT/HCPCS: 36415; 82746; 85652; 86140; 86160; 86225; 86235

== ENCOUNTER 2024-11-21 01:19 | Emergency (ER) | payer MEDICARE, SELFPAY ==
--- NOTE | ~2024-11-21 | CT_ITS ---
CLINICAL HISTORY: LLQ abd pain CT abdomen and pelvis without contrast Comparison: CT/SR - CT ABDOMEN PELVIS WO IV CON - 09/17/24 04:49 EDT Findings: Calcified bilateral pleural plaques are present with mild pleural thickening, similar to prior exam. Mild linear atelectasis and/or scarring is present in bilateral lower lobes. The gallbladder is absent. The noncontrast appearance of the liver, pancreas, spleen, bilateral adrenal glands, and bilateral kidneys is within normal limits. There is no evidence of nephrolithiasis or obstructive urolithiasis. There is no evidence of bowel obstruction. The appendix is not well-visualized. There is no pneumoperitoneum or ascites. Mild central mesenteric edema is present with multiple normal-sized lymph nodes. The urinary bladder is partially distended. Moderate degenerative changes are seen in the spine. No acute osseous abnormality is identified. No aggressive lytic or blastic lesion is seen. IMPRESSION: 1. Mild central mesenteric edema with multiple normal-sized lymph nodes suggestive of mesenteritis. This document has been electronically signed by: Kayla Espinal on 11/21/2024 05:44:03
[2024-11-21 01:30] VITALS: BP 172/65; PULSE 88; RESP 20; TEMP 36.7; O2SAT 96; BMI 42.4
--- NOTE | 2024-11-21 01:34 | ECG_ITS ---
Test Reason : abd pain Blood Pressure : */* mmHG Vent. Rate : 74 BPM Atrial Rate : 74 BPM P-R Int : 208 ms QRS Dur : 82 ms QT Int : 394 ms P-R-T Axes : 49 17 8 degrees QTcB Int : 437 ms Normal sinus rhythm Nonspecific ST abnormality Abnormal ECG When compared with ECG of 26-May-2024 21:39, [place] interval has decreased Referred By: Generic ED Physician Electronically Signed By: NICHELLE DREW
--- OUTSIDE RECORDS SUMMARY | 2024-11-21 01:49 | XMS_ITS | Clinical Summary ---
Author Organization [facility] Address [address] [facility] [address] [place] [address] Phone Care Team Providers Care Alumina Plant Supervisor Name Role Phone Bhakti Rodgers MD Primary Care Provider [phone] Allergies Active Allergy Reactions Criticality Noted Date [...] mellitus 11/06/2015 09/04/2020 Inflammatory dermatosis 07/22/201508/09 Immunizations Immunization Administration Dates Next Due Influenza Split High [...] 09/15/2021, Additional history exists Influenza Vaccine (#1) 2025 , 02/26/2021, 03/16/2020, Additional history exists Pneumococcal Vaccine: 50+ Years Completed 06/29/2022, 06/29/2022, 10/15/2017, Additional history exists Pneumococcal Vaccine: Peds (0 to 5 Years) and At-Risk Patients (6 to 49 Years) Discontinued 06/29/2022, 06/29/2022, 10/15/2017, Additional history exists Hepatitis [...] % PVNMA 01/16/2020 us [facility] Conversion LAB [id number] LICITED RESULTS Final Result PVNMA from Last 3 Months or Most Recently Relevant to Health Maintenance Insurance [facility] Care Teams Alumina Plant Supervisor Relationship Specialty Start Date End Date Bhakti Rodgers MD PCP - General Internal Medicine 09/09/20
--- OUTSIDE RECORDS SUMMARY | 2024-11-21 01:49 | XMS_ITS | Clinical Summary ---
Author Organization [facility] Address [address] [place] [id number] Care Team Providers Care Vendor Analyst Name Role Phone Bhakti Rodgers MD Primary Care Provider Allergies Active Allergy Reactions Criticality Noted Date [...] 81 11/10/2023 10:09 AM EDT Temperature 36.8 C (98.2 F) 11/10/2023 10:09 AM EDT Respiratory Rate - - Oxygen Saturation 98% [...] (Colonoscopy) 1997 Breast Cancer Screening (Mammogram) 2002 Fall Risk Assessment 2017 Osteoporosis Screening (DEXA Scan) 2017 COVID-19 Vaccine (3 - Pfizer risk series) 10/12/2020 09/14/2020, 08/21/2020 DTap / Tdap / Td (1 - Tdap) 06/30/2022 06/29/2022 Influenza Vaccine (#1) 2025 3, 02/07/2022, 02/07/2022, Additional history exists RSV Adult > 60+ Yrs or (1 - 1-dose 75+ series) 08/20/2027 Shingrix-Zoster Vaccine Completed 10/03/19, 09/14/2020, 08/03/2020 Pneumococcal Vaccine Completed 06/29/2022, 10/15/2017, 12/19/2015, Additional history exists Hepatitis B Vaccines Aged Out No long er eligible based on patient's age to complete this topic RSV Ped < 20 months Aged Out No longe r eligible based on patient's age to complete this topic Care Teams Vendor Analyst Relationship Specialty Start Date End Date Bhakti Rodgers MD PCP - General Internal Medicine 09/11/20
[2024-11-21 01:54] LABS: Hematocrit 36.9 % (37.0-47.0); Hemoglobin 13.0 g/dl (12.0-16.0); Imm Gran Abs Auto 0.03 X10*3/uL (0.00-0.03); Imm Gran Pct Auto 0.3 % (0.0-0.4); Lymphocytes Absolute Auto 4.5 X10*3/uL (1.2-4.9); MANUAL DIFF FLAG NO; Mean Corpuscular HGB Conc 35.2 g/dl (31.0-35.0); Mean Corpuscular Hemoglobin 30.2 pg (27.0-33.0); Mean Corpuscular Volume 85.8 fL (80.0-98.0); NRBC Abs Auto 0.000 X10*3/uL (0.0-0.012); NRBC Pct Auto 0.0 /100WBC (0.0-0.2); Platelet Count 282 X10*3/uL (160-400); Red Blood Count 4.30 X10*6/uL (4.20-5.50); White Blood Count 11.0 X10*3/uL (4.8-10.8)
[2024-11-21 02:08] LABS: Alanine Aminotransferase 37 U/L (0-31); Albumin Level 4.1 g/dL (3.5-5.0); Alkaline Phosphatase 118 U/L (39-117); Anion Gap 16 (12-20); Aspartate Amino Transferase 33 U/L (5-31); Blood Urea Nitrogen 17 mg/dL (9-16); Calcium 9.4 mg/dL (8.4-10.2); Carbon Dioxide 25 mmol/L (22-29); Chloride 105 mmol/L (96-108); Creatinine Clr Calc Pharmacy 58.7; Estimated Glomerular Filt Rate 51; Lipase 12 U/L (8-78); Potassium 4.3 mmol/L (3.3-5.1); Sodium 142 mmol/L (135-145); Total Protein 7.2 g/dL (6.5-8.0)
[2024-11-21 02:29] LABS: Troponin-I High Sensitivity < 2.7 ng/L (<3.5-17.0)
--- NOTE | 2024-11-21 03:37 | ED.ABDPAIN ---
HPI - Abdominal Pain General Chief Complaint: Abdominal Pain Stated Complaint: left side pain Time Seen by Provider: 11/21/24 03:36 Source: patient Mode of arrival: EMS Limitations: no limitations History of Present Illness ED Provider: Dr. Rowena Junior HPI narrative: 73-year-old female with history of DM, CKD, HTN, HLD, KUMAR, complex migraines, anxiety, hypothyroidism presenting with LLQ abd pain going for the last 3 days and worsening over the last several hours. Describes a clenching pain in her LLQ that is nonradiating and constant since it started. No associated fever, vomiting or diarrhea. Has had a good appetite despite the pain. Has history of gall stones but feels this is different. No urinary complaints or flank pain. No recent antibiotic use. Related Data Home Medications ?Medication ?Instructions ?Recorded ?Confirmed blood sugar diagnostic (FreeStyle 09/28/22 10/10/24 Lite Strips) clonidine HCl 0.1 mg tablet 0.1 mg PO TID 09/28/22 10/10/24 pen needle, diabetic 32 gauge x 09/28/22 10/10/2405/13 (BD Ultra-Fine Micro Pen Needle) simvastatin 20 mg tablet 20 mg PO BEDTIME 09/28/22 10/10/24 aspirin 81 mg tablet,delayed 81 mg PO DAILY 10/01/22 10/10/24 release cholecalciferol (vitamin D3) 25 25 mcg PO DAILY 10/01/22 10/10/24 mcg (1,000 unit) tablet levothyroxine 125 mcg tablet 125 mcg PO DAILY@0600 04/14/23 10/10/24 gabapentin 100 mg capsule 100 mg PO TID 12/22/23 10/10/24 Previous Rx's ?Medication ?Instructions ?Recorded divalproex 125 mg tablet,delayed 125 mg PO BID 30 days #60 tabs 07/07/24 release (Depakote) lorazepam 0.5 mg tablet (Ativan) 0.5 mg PO BID PRN anxiety 30 days 10/07/24 #45 tabs ubrogepant 100 mg tablet (Ubrelvy) 50 - 100 mg (0.5 - 1 x 100 mg) PO 10/27/24 BID PRN migraine headache 30 days #16 tabs ketorolac 10 mg tablet 10 mg PO Q8H 3 days #9 tabs 11/21/24 ondansetron HCl 4 mg tablet 4 mg PO Q8H #10 tabs 11/21/24 Allergies Allergy/AdvReac Type Severity Reaction Status Date / Time Iodinated Contrast Media Allergy Severe SEDATION,TA Verified 11/21/24 01:31 (IVP DYE) CHYCARDIA azithromycin Allergy Unknown Hives Verified 11/21/24 01:31 erythromycin base Allergy Unknown HIVES Verified 11/21/24 01:31 (ERYTHROMYCIN BASE) metformin AdvReac Unknown Diarrhea Verified 11/21/24 01:31 Review of Systems Review of Systems as per HPI, full review of systems performed and negative but for the above mentioned pertinent positives and negatives. [facility] Past Medical History Attestation statement: The following information was validated with the patient. [facility] Narrative: DM, HTN, KUMAR, lives with Source: old records reviewed Medical History Fever Fever of unknown origin Encephalopathy acute Encephalopathy acute Encephalopathy Hyperthermia Hemiplegic migraine Left-sided weakness Malaise Medication side effect Status migrainosus Migraine Type 2 diabetes mellitus CKD (chronic kidney disease) stage 2, GFR 60-89 ml/min Anxiety Obstructive sleep apnea Encephalitis Hypothyroid HTN (hypertension) HLD (hyperlipidemia) Diabetes Complicated migraine Surgical History Hx of left mastectomy Hx of cholecystectomy H/O section Family History Family History Mother Lung cancer Diabetes Depression Daughter Alcohol abuse Father FH: cholecystectomy Social History Social History Household Members: Children Housing: House Do you presently have visiting nurse or other home services: Yes Unable to assess alcohol history related to: Unable to respond Alcohol intake: never Comment: 1 TO 1 SITTER Patient Tobacco Use Status: Never used Tobacco e-Cigarette/Vaping Use: Never Used Second Hand Smoke Exposure: No Advance Directives Date on File: 09/28/22 service: No Current occupational status: retired Physical Exam ED Vital Signs: Vital Signs - 24 hr 11/21/24 01:30 11/21/24 04:22 11/21/24 06:21 Temperature 98.0 F 98.4 F 98.8 F Pulse Rate 88 71 82 Respiratory Rate 20 16 16 Blood Pressure 172/65 H 156/62 H 170/76 H Pulse Oximetry 96 94 98 Oxygen Delivery Method Room Air Room Air Room Air BMI result Body Mass Index 42.4 GENERAL: Ill-Appearing, appears uncomfortable. SKIN: Normal skin color for ethnicity, warm, dry, no rashes noted. HEENT:? Normocephalic, atraumatic, no stridor, dry mucous membranes, dentition intact, EOMI. NECK: Soft, supple, full ROM, midline structures nontender, no step-offs, no deformities, no lymphadenopathy. CHEST: Heart regular rhythm, no murmurs, symmetric chest rise and fall. PULMONARY: Clear to auscultation bilaterally, diminished at the bases, no labored breathing, no wheezes/rhales/rhonchi. ABDOMINAL: Soft, nondistended, LLQ tenderness to palpation with voluntary guarding, positive bowel sounds in all quadrants. : Deferred. MUSCULOSKELETAL: Normal tone, full range of motion, no deformities, no peripheral edema. NEURO: Alert and oriented x3, CN II through XII intact, equal strength and sensation bilateral upper and lower extremities, no focal neurologic deficits.? PSYCHIATRIC: Flat affect, fluid speech, good eye contact and appropriate demeanor. Medical Decision Making Medical Decision Making [facility] Narrative: This patient presents today with a chief complaint of abdominal pain. Differential diagnosis for this patient is broad.? It includes appendicitis, cholecystitis, bowel obstruction, diverticulitis, peptic ulcer disease, pyelonephritis, vascular pathology, among many others.? A broad-based workup based on history and physical examination was obtained. ? Patient was given morphine for pain control.? ? CT shows evidence of mesenteritis. Morphine did not help her pain much but toradol did. She is tolerating PO her ein the ED. No indication for surgical consultation or admission at this time. Using shared decision making, plan for discharge home to follow-up with primary care and/or specialist.? Patient understands and agrees with plan for discharge.? Discharged home in stable condition. Differential Diagnosis Differential Diagnoses: The differential diagnosis associated with the presentation includes (as above) Admission/Observation Consideration of admission/observation: Escalation of care including admission/observation considered Lab Data [facility] Lab Attestation statement: I reviewed the patient's lab results. midlly elevated WBC, no left shift. chemistry relatively normal, no significant elevation in LFTs. 11/21/24 01:42 11/21/24 01:42 Labs: Lab Results 11/21/24 11/21/24 Range/Units 01:42 04:26 WBC 11.0 H (4.8-10.8) X10*3/uL RBC 4.30 (4.20-5.50) X10*6/uL Hgb 13.0 (12.0-16.0) g/dl Hct 36.9 L (37.0-47.0) % MCV 85.8 (80.0-98.0) fL MCH 30.2 (27.0-33.0) pg MCHC 35.2 H (31.0-35.0) g/dl RDW 12.9 (11.0-16.0) % Plt Count 282 (160-400) X10*3/uL MPV 11.2 (9.4-12.3) fL Immature Gran % (Auto) 0.3 (0.0-0.4) % Neut % (Auto) 48.3 (45-73) % Lymph % (Auto) 40.8 H (20-40) % [place] % (Auto) 7.8 (2-11) % Eos % (Auto) 2.5 (0-4) % Baso % (Auto) 0.3 (0-2) % Lymph # (Auto) 4.5 (1.2-4.9) X10*3/uL [place] # (Auto) 0.9 (0.1-1.2) X10*3/uL Eos # (Auto) 0.3 (0.0-0.4) X10*3/uL Baso # (Auto) 0.0 (0.0-0.2) X10*3/uL Abs Immat Gran (auto) 0.03 (0.00-0.03) X10*3/uL Absolute Neuts (auto) 5.3 (2.0-8.3) x10*3/uL Absolute Nucleated RBC 0.000 (0.0-0.012) X10*3/uL Nucleated RBC % (auto) 0.0 (0.0-0.2) /100WBC Sodium 142 (135-145) mmol/L Potassium 4.3 (3.3-5.1) mmol/L Chloride 105 (96-108) mmol/L Carbon Dioxide 25 (22-29) mmol/L Anion Gap 16 (12-20) BUN 17 H (9-16) mg/dL Creatinine 1.06 (0.5-1.4) mg/dL Estim Creat Clear Calc 58.7 Estimated GFR 51 Random Glucose 135 H (60-115) mg/dL Calcium 9.4 (8.4-10.2) mg/dL Total Bilirubin 1.2 H (0.0-1.0) mg/dL Direct Bilirubin 0.4 (0.0-0.5) mg/dL AST 33 H (5-31) U/L ALT 37 H (0-31) U/L Alkaline Phosphatase 118 H (39-117) U/L Troponin I High Sens < 2.7 (<3.5-17.0) ng/L Total Protein 7.2 (6.5-8.0) g/dL Albumin 4.1 (3.5-5.0) g/dL Lipase 12 (8-78) U/L Urine Color Yellow Urine Appearance Clear Urine pH 7.0 (5.0-9.0) Ur Specific [place] <= 1.005 (1.005-1.025) Urine Protein Negative (Neg-Trace) mg/dL Urine Glucose (UA) Negative (Negative) mg/dL Urine Ketones Negative (Negative) mg/dL Urine Blood Negative (Negative) Urine Nitrite Negative (Negative) Ur Leukocyte Esterase Trace H (Negative) Urine RBC 0-2 (0-2) /HPF Urine WBC 0-5 (0-5) /HPF Ur Squamous Epith Cells 3-5 (0-2) /HPF Urine Bacteria Trace (None Seen) Hyaline Casts 0-2 (0-2) /LPF Radiology Impression Discussion of test interpretation with radiology: I have reviewed the radiologist's reading. Radiologist Impression: CT abdomen and pelvis without contrast Comparison: CT/SR - CT ABDOMEN PELVIS WO IV CON - 09/17/24 04:49 EDT Findings: Calcified bilateral pleural plaques are present with mild pleural thickening, similar to prior exam. Mild linear atelectasis and/or scarring is present in bilateral lower lobes. The gallbladder is absent. The noncontrast appearance of the liver, pancreas, spleen, bilateral adrenal glands, and bilateral kidneys is within normal limits. There is no evidence of nephrolithiasis or obstructive urolithiasis. There is no evidence of bowel obstruction. The appendix is not well-visualized. There is no pneumoperitoneum or ascites. Mild central mesenteric edema is present with multiple normal-sized lymph nodes. The urinary bladder is partially distended. Moderate degenerative changes are seen in the spine. No acute osseous abnormality is identified. No aggressive lytic or blastic lesion is seen. IMPRESSION: 1. Mild central mesenteric edema with multiple normal-sized lymph nodes suggestive of mesenteritis. This document has been electronically signed by: Kayla Espinal on 11/21/2024 05:44:03 External Record Review External record reviewed: Prior outpatient labs Prescription Management I considered prescription management with: Pain Medication Chronic Conditions Patient?s care impacted by: Diabetes and Hypertension Social Determinants Patient?s care significantly limited by Social Determinants of Health including: Problems related to primary support group Medications Administered Discontinued Medications Generic Name Dose Route Start Last Admin Trade Name Freq PRN Reason Stop Dose Admin Lactated Ringer's 1,000 mls @ 999 mls/hr 11/21/24 03:41 11/21/24 06:23 Lr IV 11/21/24 04:41 Infused .Q1H1M ONE Infusion Ketorolac Tromethamine 15 mg 11/21/24 07:05 11/21/24 07:24 Ketorolac Tromethamine 15 Mg/Ml Vial IVPUSH 11/21/24 07:06 15 mg ONCE ONE Administration Morphine Sulfate 4 mg 11/21/24 03:41 11/21/24 04:21 Morphine Sulfate 4 Mg/Ml Cartridge IVPUSH 11/21/24 03:42 4 mg ONCE ONE Administration Protocol Ondansetron HCl 4 mg 11/21/24 03:41 11/21/24 04:21 Ondansetron Hcl 4 Mg/2 Ml Vial IVPUSH 11/21/24 03:42 4 mg ONCE ONE Administration Discharge Plan Discharge Clinical Impression: Acute mesenteric adenitis Patient Disposition: Home, Self-Care Instructions: Mesenteric Adenitis (ED) Additional Instructions: Return to the emergency room with any new or worsening symptoms including: Worsening pain, fevers greater than 100?, inability to tolerate food or drink, any new symptom that concerns you. Follow up with your primary care doctor as soon as possible. Prescriptions: New ketorolac 10 mg tablet 10 mg PO Q8H 3 Days Qty: 9 0RF Rx Instructions: maximum total duration of 5 days from all oral, intranasal, or parenteral formulations ondansetron HCl 4 mg tablet 4 mg PO Q8H Qty: 10 0RF No Action divalproex [Depakote] 125 mg tablet,delayed release (DR/EC) 125 mg PO BID 30 Days Qty: 60 6RF lorazepam [Ativan] 0.5 mg tablet 0.5 mg PO BID PRN (Reason: anxiety) 30 Days Qty: 45 3RF Ubrelvy 100 mg tablet 50 - 100 mg PO BID PRN (Reason: migraine headache) 30 Days Qty: 16 6RF Rx Instructions: take at onset of migraine, may repeat in 2hrs (may take w/ Lorazepam and Tylenol). pa APPROVED 10/23/24-10/23/25 clonidine HCl 0.1 mg tablet 0.1 mg PO TID (DME) FreeStyle Lite Strips Strip 1 strip MISCELLANEOUS TID simvastatin 20 mg tablet 20 mg PO BEDTIME (DME) pen needle, diabetic [BD Ultra-Fine Micro Pen Needle] 32 gauge x 1/4 needle MISCELLANEOUS levothyroxine 125 mcg tablet 125 mcg PO DAILY@0600 aspirin 81 mg Tablet,Delayed Release (Dr/Ec) 81 mg PO DAILY cholecalciferol (vitamin D3) 25 mcg (1,000 unit) Tablet 25 mcg PO DAILY gabapentin 100 mg capsule 100 mg PO TID Interventions: ED Discharge Assessment Last Done: 11/21/24 09:38 Discharge Date/Time: 11/21/24 09:40 Print Language: Armenian
[2024-11-21 04:22] VITALS: BP 156/62; PULSE 71; RESP 16; TEMP 36.9; O2SAT 94
[2024-11-21] MEDS: Lactated Ringers 1,000 ML 999 ML IV (04:22)
[2024-11-21 04:40] LABS: Appearance Urine Clear; Glucose Urine UA Negative (Negative); PH 7.0 (5.0-9.0); Specific Gravity - Urine <= 1.005 (1.005-1.025); UMIC TRIGGER UACC YES
[2024-11-21 06:21] VITALS: BP 170/76; PULSE 82; RESP 16; TEMP 37.1; O2SAT 98
--- NOTE | 2024-11-21 07:27 | PC.NURSE ---
Addendum entered by Kiarra Klein RN 11/21/24 07:29: Patient presents with generalized abdominal pain. Alert and coopertive. Lungs clear bilat. Respirations even and non-labored. Abdomen obese, soft with positive bowel sounds. No significant tenderness noted. Positive pedal pulses with trace LE edema noted. CT : Mild central mesenteric edema with multiple normal-sized lymph nodes suggestive of mesenteritis. Continues with pain. Medication provided. Original Note: Medical History Fever Fever of unknown origin Encephalopathy acute Encephalopathy acute Encephalopathy Hyperthermia Hemiplegic migraine Left-sided weakness Malaise Medication side effect Status migrainosus Migraine Type 2 diabetes mellitus CKD (chronic kidney disease) stage 2, GFR 60-89 ml/min Anxiety Obstructive sleep apnea Encephalitis Hypothyroid HTN (hypertension) HLD (hyperlipidemia) Diabetes Complicated migraine
[2024-11-21 08:32] VITALS: BP 159/69; PULSE 65; RESP 17; TEMP 36.7; O2SAT 98
[2024-11-21 09:38] VITALS: BP 159/69; PULSE 65; RESP 17; TEMP 36.7; O2SAT 98
== END 2024-11-21 09:40 | disposition home or self-care (01) ==
PROVIDERS: Emergency Provider Emergency Medicine
DX: I88.0 Nonspecific mesenteric lymphadenitis (principal); R10.32 Left lower quadrant pain; I10 Essential (primary) hypertension; E11.9 Type 2 diabetes mellitus without complications; R94.31 Abnormal electrocardiogram [ECG] [EKG]; R11.2 Nausea with vomiting, unspecified; Z79.899 Other long term (current) drug therapy
CPT/HCPCS: 36415; 74176; 80053; 81001; 81003; 82248; 83690; 84484; 85025; 93005; 96361; 96374; 96375; 99284; 99285; J1885; J2270; J2405; J7120

== ENCOUNTER → 2024-11-21 01:34 | Outpatient (BNV) | payer MEDICARE, SELFPAY | PROVIDERS: Emergency Provider Emergency Medicine; Visit Provider Internal Medicine | DX: R94.31 Abnormal electrocardiogram [ECG] [EKG] (principal); R10.32 Left lower quadrant pain | CPT/HCPCS: 93010 ==

== ENCOUNTER → 2024-11-21 04:19 | Outpatient (BNV) | payer MEDICARE, SELFPAY | PROVIDERS: Emergency Provider Emergency Medicine; Visit Provider Radiology Vascular & Interventional Radiology | DX: R10.32 Left lower quadrant pain (principal) | CPT/HCPCS: 74176 ==

== ENCOUNTER 2024-12-19 10:50 | Outpatient (AMB) | payer MEDICARE, SELFPAY ==
--- NOTE | 2024-12-19 11:05 | A.OFFVIS_ITS ---
Vital Signs 12/19/24 11:22 Height 5 ft 4 in Weight 242 lb 1.081 oz BMI 41.5 BP 134/62 Blood Pressure Location Rt radial Pulse 53 Pulse Source Pulse Oximeter Pulse Oximetry (%) 98 Oxygen Delivery Method Room Air Intake Visit Reasons: abnormal lab/New Patient Intake Note: New patient presents for abnormal lab. Patient c/o pain on LT shoulder, both hands and they become numb, back pain, both hips, both knees, both legs, both ankles and both feet. Patient stated she has been experiencing these symptoms for seven years. Patient is taking Tramadol, Aspirin and Tyleno and it helps short term. Allergies Iodinated Contrast Media (IVP DYE) Allergy (Severe, Verified 12/19/24 11:18) SEDATION,TACHYCARDIA azithromycin Allergy (Unknown, Verified 12/19/24 11:18) Hives erythromycin base (ERYTHROMYCIN BASE) Allergy (Unknown, Verified 12/19/24 11:18) HIVES metformin Adverse Reaction (Unknown, Verified 12/19/24 11:18) Diarrhea HPI Comments Details: Patient is a 74-year-old female with hypothyroidism, hyperlipidemia, hypertension, cognitive disorder and hemiplegic migraines here today for evaluation of positive BLUE Complains of polyarticular joint pain Left shoulder - currently being seen by ortho for frozen shoulder - bilateral knees - bilateral leg pain, worse at night that wakes her up out of her sleep Denies rashes, photosensitivity, alopecia, oral/nasal ulcers, sicca symptoms, lymphadenopathy, chest pain/shortness of breath, inflammatory type joint pain, foamy urine, lower extremity edema, muscle weakness, Raynaud's Also denies history of seizure, CVA, psychosis, history of kidney problems, history of cytopenias, history of VTE including PE or DVTs +1, unsure of the dating of the loss [facility] Medical History Fever Fever of unknown origin Encephalopathy acute Encephalopathy acute Encephalopathy Hyperthermia Hemiplegic migraine Left-sided weakness Malaise Medication side effect Status migrainosus Migraine Type 2 diabetes mellitus CKD (chronic kidney disease) stage 2, GFR 60-89 ml/min Anxiety Obstructive sleep apnea Encephalitis Hypothyroid HTN (hypertension) HLD (hyperlipidemia) Diabetes Complicated migraine Surgical History Hx of left mastectomy Hx of cholecystectomy H/O section Family History Mother Lung cancer Diabetes Depression Daughter Alcohol abuse Father FH: cholecystectomy Social History Household Members: Children Housing: House Do you presently have visiting nurse or other home services: Yes Unable to assess alcohol history related to: Unable to respond Alcohol intake: never Comment: 1 TO 1 SITTER Patient Tobacco Use Status: Never used Tobacco e-Cigarette/Vaping Use: Never Used Second Hand Smoke Exposure: No Advance Directives Date on File: 09/28/22 service: No Current occupational status: retired Review of Systems Const All systems reviewed & are unremarkable except as noted in HPI and below Physical Exam Exam Exam: Vital signs reviewed Physical Examination CONSTITUITIONAL Patient alert and cooperative. Well appearing and in no apparent painful distress HEENT Conjunctiva and sclera clear. No lymphadenopathy. CHEST/RESPIRATORY SYSTEM Normal respiratory effort and able to speak in complete sentences. Clear to auscultation bilaterally. No crackles, rales, rhonchi, wheezes heard. CARDIAC SYSTEM Regular rate and rhythm. S1 and S2 heard no murmurs. Radial pulses intact bilaterally MSK Hands * Right Hand: Able to make a fist. No swelling or tenderness to palpation of these joints. * Left Hand: Able to make a fist. No swelling or tenderness to palpation of these joints. * Herbedens nodes noted bilaterally Wrists * Right Wrist: Full ROM. 70 degrees of wrist flexion, 80 degrees of wrist extension. No swelling or TTP * Left Wrist: Full ROM. 70 degrees of wrist flexion, 80 degrees of wrist extension. No swelling or TTP Elbows * Right Elbow: Full ROM. No swelling or TTP. No TTP of the medial and lateral epicondyles * Left Elbow: Full ROM. No swelling or TTP. No TTP of the medial and lateral epicondyles Shoulders * Right shoulder: Decreased ROM * Left shoulder: Decreased ROM Knees * Right knee: Full ROM. No swelling noted. No TTP of the knee joint lie or pes anserine bursa * Left knee: Full ROM. No swelling noted. No TTP of the knee joint lie or pes anserine bursa. * Crepitations felt bilaterally Ankles * Right ankle: Good ankle dorsiflexion and plantar flexion. No swelling. No TTP of the ankle joint * Left ankle: Good ankle dorsiflexion and plantar flexion. No swelling. No TTP of the ankle joint Feet * Right foot: Negative squeeze test * Left foot: Negative squeeze test Tender points? * No tenderness to palpation of the bilateral trapezius, supraspinatus, anterior costochondral junctions, bilateral suboccipital muscle insertions SKIN No rashes Vital Signs: Last Vital Signs Pulse 53 12/19/24 11:22 BP 134/62 12/19/24 11:22 Pulse Ox 98 12/19/24 11:22 Oxygen Delivery Method Room Air 12/19/24 11:22 BMI result Body Mass Index 41.5 Results Reviewed Results Reviewed: Laboratory Tests 10/18/24 11/21/24 08:58 01:42 WBC 11.0 H RBC 4.30 Hgb 13.0 Hct 36.9 L Plt Count 282 ESR 23 H Sodium 142 Potassium 4.3 Chloride 105 Carbon Dioxide 25 BUN 17 H Creatinine 1.06 AST 33 H ALT 37 H C-Reactive Protein 0.51 H Laboratory Tests 04/20/24 10/18/24 09:46 08:58 Rheumatoid Factor < 13.0 BLUE Screen POSITIVE A BLUE Titer 1:80 H BLUE Pattern A SS-A/Ro Antibody <1.0 NEG SS-B/La Antibody <1.0 NEG Double Strand DNA Ab 3 Complement C3 199 H Complement C4 52 Laboratory Tests 09/28/22 03:47 CSF Volume 1.0 CSF Appearance CLEAR CSF Color COLORLESS CSF WBC 5 CSF RBC 3 CSF Neutrophils 8 CSF Lymphocytes 52 CSF Monocytes % 40 CSF Appearance (b) Clear, Colorless CSF Glucose 114 CSF Total Protein 46.5 H Assessment & Plan Assessment & Plan (1) Positive BLUE (antinuclear antibody): Code(s): R76.8 - Other specified abnormal immunological findings in serum Category: Medical Plan: #Positive BLUE Patient is a 74 y.o. female with hemiplegic migraine here today for evaluation of positive BLUE. There is no evidence clinically or historically concerning for autoimmune connective tissue disease. The presence of antinuclear antibodies (BLUE) is mainly associated with connective tissue diseases (CTD). ?However, their presence is found in healthy people especially in women and patients >65, especially dense fine speckeled as see in this patient. ?In healthy individuals, the frequency of BLUE has been shown to be 31.7% of individuals at 1:40 serum dilution, 13.3% at 1:80, 5.0% at 1:160, and 3.3% at 1:320 (2). Some drugs and xenobiotics are also important for the development of BLUE (hydralazine, hydrochlorothiazide, minocycline, terbinafine, ciprofloxacin, furosemide, omeprazole). Moreover, the deficiency of vitamin D in the body of patients correlates with occurrence of these antibodies (1). At this time there is low suspicion for a connective tissue disease. ? 1. Mary?black Gutierrez, Shi Anthony, Tiffanie Fine. Antinuclear antibodies in he ellie people and non-rheumatic diseases - diagnostic and clinical implications. Reumatologia. 2018;56(4):243-248. doi: 10.5114/reum.2018.69703. Epub 2017Jan 07. PMID: [id number]; PMCID: [id number]. 2. Felipe EM, Erik TE, Irena JS, Tigist B, Nano R, Les MJ, Vickey T, Kirsty JA, Rachel JR, Holli RG, Daksha RN, Mekhi JS, Coral NF, Kadi RJ, Takmedina Y, Pratik A, Julio César MR, Ciera HERNÁNDEZ. Range of antinuclear antibodies in healthy individuals. Arthritis Rheum. 1996;40(9):1601-11. doi: 10.1002/art.8807547520. PMID: 9790693. (2) Restless leg syndrome: Code(s): G25.81 - Restless legs syndrome Plan: #?RLS Patient complaining of leg pain at night. This seems consistent with RLS. Recommended having PCP increasing gabapentin to see if that would help Plan I spent 30 minutes reviewing the record and labs, taking a history, examining the patient, discussing the treatment plan and documenting in the medical record Coding Level of Care Code New Pt Level 3 (53739) Diagnoses Positive BLUE (antinuclear antibody) R76.8 Restless leg syndrome G25.81
[2024-12-19 11:22] VITALS: BP 134/62; PULSE 53; O2SAT 98; BMI 41.5
--- OUTSIDE RECORDS SUMMARY | 2024-12-19 11:57 | XMS_ITS | Encounter Summary ---
Author Organization [employer] [facility] Address [address] [place] [address] Care Team Providers Care Cytometry Technologist Name Role Phone Bhakti Rodgers MD Primary Care Provider [phone] Encounter Details Date Type Department Care Team Description 01/22/2022 Hospital Medical Records [address] [place] [address] [facility] Social History Tobacco Use Types Packs/Day Years [...] on filedocumented in this encounter Care Teams Cytometry Technologist Relationship Specialty Start Date End Date Bhakti Rodgers MD [address] [place] [address] [id number] PCP - General Internal Medicine 07/02/20 documented as of this encounter
--- OUTSIDE RECORDS SUMMARY | 2024-12-19 11:58 | XMS_ITS | Clinical Summary ---
Author Organization [facility] Address [address] [place] [address] Care Team Providers Care Quarter Inspector Name Role Phone Bhakti Rodgers MD Primary Care Provider [phone] Allergies Active Allergy Reactions Criticality Noted Date [...] age to complete this topic Care Teams Quarter Inspector Relationship Specialty Start Date End Date Bhakti Rodgers MD PCP - General Internal Medicine 09/11/20
--- OUTSIDE RECORDS SUMMARY | 2024-12-19 11:58 | XMS_ITS | Clinical Summary ---
Author Organization [facility] Address [address] [facility] [address] [place] [address] Phone Care Team Providers Care Warehouse Person Name Role Phone Bhakti Rodgers MD Primary Care Provider [phone] Allergies Active Allergy Reactions Criticality Noted Date [...] % PVNMA 01/16/2020 us Rtama Conversion LAB [id number] LICITED RESULTS Final Result PVNMA from Last 3 Months or Most Recently Relevant to Health Maintenance Insurance [facility] Care Teams Warehouse Person Relationship Specialty Start Date End Date Bhakti Rodgers MD PCP - General Internal Medicine 09/09/20
--- OUTSIDE RECORDS SUMMARY | 2024-12-19 11:58 | XMS_ITS ---
Author Name [facility] Organization Unknown Care Team Organization Name Specialty Phone Email Start Date End Da te [facility] Bhakti Rodgers Primary Care 03/17/2022 4
--- OUTSIDE RECORDS SUMMARY | 2024-12-19 11:58 | XMS_ITS | Clinical Summary ---
Author Organization [facility] Address [address] [place] [id number] Phone Care Team Providers Care Churn Operator Name Role Phone Bhakti Rodgers MD Primary Care Provider [phone] Allergies Active Allergy Reactions Criticality Noted Date Comments Azithromycin Hives 06/11/2015 Iodinated Contrast Media 11/03/2024 Metformin Diarrhea High 10/18/2018 Medications ammonium lactate (AMLACTIN) 12 % cream Apply topically as needed for dry skin. Active aspirin 81 mg chewable tablet Chew 1 tablet (81 mg total) by mouth daily. Active cholecalciferol (VITAMIN D-3) 25 mcg (1,000 unit) capsule Take 1 capsule (1,000 Units total) by mouth 1 (one) time each day. Active clotrimazole (LOTRIMIN) 1 % cream Apply topically 2 (two) times a day. 30 g 2 07/13/19 25 Active BD Ultra-Fine Micro Pen Needle 32 gauge x 1/4 needleIndicatio ns:Type 2 diabetes mellitus with stage 3 chronic kidney disease, with long-term current use of insulin, unspecified whether stage 3a or 3b CKD (CMS/HCC V24, CMS/HCC V28) USE 1 PEN NEEDLE TO INJECT INSULIN 5 TIMES A DAY 500 each 1 10/29/19 25 Active LORazepam (ATIVAN) 0.5 mg tablet Take 1 tablet (0.5 mg total) by mouth 2 (two) times a day if needed. for anxiety Active traMADoL (ULTRAM) 50 mg tablet Take 1 tablet (50 mg total) by mouth 2 (two) times a day. for 7 days 10/27/19 25 Active blood sugar diagnostic (FreeStyle Lite Strips) test stripIndication s:Type 2 diabetes mellitus with stage 3 chronic kidney disease, with long-term current use of insulin, unspecified whether stage 3a or 3b CKD ([facility] V24, [facility] V28) USE 1 STRIP TO CHECK GLUCOSE THREE TIMES DAILY 300 each 3 11/04/19 25 Active insulin glargine (Lantus Solostar U-100 Insulin) 100 unit/mL (3 mL) injection pen 62 units SC BID 45 mL 11 11/04/19 25 Active insulin lispro (HumaLOG KwikPen Insulin) 100 unit/mL injection pen Inject three times a day BEFORE meals per scale: 100-125: 6 units; 126-150: 19 units; 151-200: 24 units; 201-250: 26 units; 251-300: 28 units; 301-350: 34 units; 351-400: 37 units 45 mL 5 11/04/19 25 Active gabapentin (NEURONTIN) 100 mg capsule TAKE 1 CAPSULE BY MOUTH THREE TIMES DAILY 270 capsule 11/10/19 25 Active simvastatin (ZOCOR) 20 mg tablet TAKE 1 TABLET BY MOUTH AT BEDTIME 90 tablet 1 11/09/19 25 Active cloNIDine (CATAPRES) 0.1 mg tablet TAKE 1 TABLET BY MOUTH THREE TIMES DAILY 270 tablet 12/07/19 25 Active levothyroxine (SYNTHROID, LEVOTHROID) 125 mcg tablet Take 1 tablet by mouth once daily 90 tablet 12/13/19 25 Active cloNIDine (CATAPRES) 0.1 mg tablet TAKE 1 TABLET BY MOUTH THREE TIMES DAILY 270 tablet 07/06/19 25 025 Discontinued levothyroxine (SYNTHROID, LEVOTHROID) 125 mcg tablet Take 1 tablet by mouth once daily 90 tablet 07/06/19 25 025 Discontinued Active Problems Problem Noted Date Diagnosed Date Stage 3a chronic kidney disease ([facility] V24, [facility] V28) 12/13/2024 Type 2 diabetes mellitus wit h diabetic neuropathy, with long-term current use of insulin ([facility] V24, [facility] V28) 12/13/2024 Depression 07/06/2024 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, with long-term current use of insulin ([facility] V24, [facility] V28) 11/27/2020 Pulmonary nodules 09/13/2020 Type 2 diabetes mellitus wit h stage 3a chronic kidney disease, with long-term current use of insulin ([facility] V24, [facility] V28) 09/28/2019 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 Overview (07/06/2024): 2018 and 06/30 episodes Hypercholesteremia Hypertension Hypothyroidism Malignant catatonia ([facility] V24, [facility] V28) Overview (07/06/2024): : Avoid triptans, SSRIs, bupropion Osteoarthritis of left knee KUMAR (obstructive sleep apnea) Overview (12/13/2024): UNTREATED (12/13/24) Neurodermatitis Encounters Date Type Department Care Team Description 12/13/2024 11:30 AM EDT Office Visit Adult Medicine [address] [phone] Ellen Wellington PA Type 2 diabetes mellitus with stage 3a chronic kidney disease, with long-term current use of insulin ([facility] V24, [facility] V28) (Primary Dx); Hypercholesteremia; Primary hypertension; Hypothyroidism due to acquired atrophy of thyroid; KUMAR (obstructive sleep apnea); Type 2 diabetes mellitus with diabetic cataract, with long-term current use of insulin ([facility]/HCC V24, CMS/HCC V28); Phyllodes tumor of breast; Type 2 diabetes mellitus with diabetic neuropathy, with long-term current use of insulin ([facility] V24, CMS/HCC V28) 11/03/2024 8:30 AM EDT Office Visit [address] [phone] Caitlin Nash PA Type 2 diabetes mellitus with stage 3 chronic kidney disease, with long-term current use of insulin, unspecified whether stage 3a or 3b CKD ([facility] V24, CMS/HCC V28) (Primary Dx); Primary hypertension; Hypothyroidism due to acquired atrophy of thyroid; Hypercholesteremia 11/03/[address] [place] [phone] Caitlin Nash PA from Last 3 Months Immunizations Name Administration [...] eservative (Fluzone; Afluria) 6mo and older 03/10/2016,04/24/2015 [email or web address] SARS-CoV-2 COVID-19, mRNA, LNP-S, preservative free 08/21/2020 [...] KUMAR (obstructive sleep apnea) 04/13/2022 Malignant catatonia ([facility] V24, [facility] V28) 08/07/2022 : Avoid triptans, SSRIs, bupropion Breast cancer ([facility] V24, [facility] V28) Family History Medical History Relation Name Comments [...] drink = 0.6 oz pur e alcohol) Housing Instability Answer Date Recorde d Are you worried that in the next 2 months you may not have stable housing? No 12/13/2024 Food Access & Nutrition Answer Date Rec orded Do you have access to a vari ety of food including fruits and vegetables? Yes 12/13/2024 Access to Healthcare Answer Date Record ed Within the last 3 months, ho w many times did you visit the emergency department for your medical care? 3 12/13/2024 Health Literacy Answer Date Recorded How often do you need to hav e someone help you when you read instructions, pamphlets, or other written material from your doctor or pharmacy? Never 12/13/2024 Caregiver: How often do you need to have someone help you when you read instructions, pamphlets, or other written material from your doctor or pharmacy? Not on file 12/13/2024 Financial Risk Answer Date Recorded How hard is it for you to pa y for the very basics like food, housing, medical care, and air conditioning / heating? Not very hard 12/13/2024 Transportation Answer Date Recorded Has the lack of transportati on kept you from meetings, work, or from getting things needed for daily living? No Has the lack of transportati on kept you from medical appointments or from getting medications? No 12/13/2024 Social Isolation Answer Date Recorded How often do you feel lonely or isolated from those around you? Sometimes 12/13/2024 Food Risk Answer Date Recorded Within the past 12 months we worried whether our food would run out before we got money to buy more. Never true 12/13/2024 Within the past 12 months th e food we bought just didn't last and we didn't have money to get more. Never true 12/13/2024 Dependent Care Answer Date Recorded Do you need help finding or paying for care for your loved ones. For example, children's counselor or elderly care for an older adult? No 12/13/2024 Education Answer Date Recorded Do you think completing more education or training, like finishing a GED, going to college, or learning a trade, would be helpful for you? N/A 12/13/2024 Employment and Income Answer Date Recor ded During the last four weeks, have you been actively looking for work? No 12/13/2024 Living Situation Answer Date Recorded What is your living situation? 0 12/13/2024 Comments No Sex and Gender Information Value [...] Sign Reading Time Taken Comments Blood Pressure 129/61 12/13/2024 11:40 AM EDT Pulse 88 12/13/2024 11:26 AM EDT Temperature 36.3 C (97.4 F) 12/13/2024 11:26 AM EDT Respiratory Rate 18 12/13/2024 11:26 AM EDT Oxygen Saturation 93% 12/13/2024 11:26 AM EDT Inhaled Oxygen Concentration - - Weight 110 kg (242 lb 3.2 oz) 12/13/2024 11:26 A M EDT Height 162.6 cm (5' 4 ) 12/13/2024 11:26 AM EDT Body Mass Index 41.57 12/13/2024 11:26 AM EDT Plan of Treatment Upcoming Encounters Date Type Department Care Team (Late st Contact Info) Description 01/31/2025 8:45 AM EDT Office Visit [facility] [address] [place] [phone] Caitlin Nash PA [address] [place] [address] 04/26/2025 8:45 AM EST Office Visit Adult Medicine [facility] [address] [place] [phone] Bhakti Rodgers MD [address] [place] [address] Health Maintenance Due Date Last Done Comments Diabetes: Annual Retina Eye Exam 1960 RSV Immunization Adult Patients (1 - Risk 60-74 years 1-dose series) 2012 COVID-19 Vaccine (3 - Pfizer risk series) 10/12/2020 09/14/2020, 08/21/2020 Medicare Annual Wellness Visit 04/18/2022 Influenza Vaccine (#1) 2025 , 01/30/2024, 02/22/2023, Additional history exists Breast Cancer Screening 04/24/2025 04/24/20 24, 02/11/2021, 02/03/2021, Additional history exists Diabetes: Blood Sugar Control Test (HGBA1C) 05/05/2025 11/03/2024, 07/14/2024, 01/12/2024, Additional history exists Diabetes: Annual Urine Albumin-Creatinine Ratio (uACR) 07/14/2025 07/14/2024 Diabetes: Annual GFR (Glomerular Filtration Rate) 07/14/2025 07/14/2024, 09/17/2023, 08/05/2022, Additional history exists Hypertension/CHF/CAD Annual BMP Blood Test 07/14/2025 07/14/2024, 09/17/2023, 08/05/2022, Additional history exists Diabetes: Annual Foot Exam 10/10/2025 10/10/2024 Falls Risk Assessment 12/13/2025 12/13/2024 Social Influencers of Health Screening 12/13/2025 12/13/2024 Colorectal Cancer Screening: Colonoscopy 12/04/2026 12/04/2016, 12/04/2016 Cholesterol Screening (Lipid Panel) 07/14/2029 07/14/2024 DTaP,Tdap,and Td Vaccines (2 - Td or Tdap) 06/29/2032 06/29/2022 Osteoporosis Screening (Bone Density Screening) 07/03/2035 07/03/2020, 11/24/2017 Hepatitis C Screening Completed 09/26/2015 Zoster Vaccines Completed 10/02/2020, 05/0 12/2020, 08/03/2020, Additional history exists Pneumococcal Vaccine: 50+ Years Completed 06/29/2022, 10/15/2017, 12/19/2015, Additional history exists Depression Screening Completed 12/13/2024 HIB Vaccines Aged Out No longer eligi [...] age to complete this topic Meningococcal B Vaccine Aged Out No l onger eligible based on patient's age to complete this topic RSV Immunization Patients Under 20 months Aged Out No longer eligible based on patient's age to complete this topic Varicella Vaccines Aged Out No longer eligible based on patient's age to complete this topic Procedures Procedure Name Priority Date/Time Associated Diagnosis Comments HEMOGLOBIN A1C Routine 11/03/2024 9:16 AM EDT Type 2 diabetes mellitus with stage 3 chronic kidney disease, with long-term current use of insulin, unspecified whether stage 3a or 3b CKD ([facility] V24, [facility] V28) THYROID STIMULATING HORMONE WITH REFLEX TO FREE T4 AND FREE T3 Routine 11/03/2024 9:16 AM EDT Hypothyroidism due to acquired atrophy of thyroid POC GLUCOSE Routine 11/03/2024 8:39 AM EDT Type 2 diabetes mellitus with stage 3 chronic kidney disease, with long-term current use of insulin, unspecified whether stage 3a or 3b CKD ([facility] V24, [facility] V28) MICROALBUMIN CREATININE URINE RATIO Routine 07/14/2024 10:36 AM EST Type 2 diabetes mellitus with stage 3 chronic kidney disease, with long-term current use of insulin, unspecified whether stage 3a or 3b CKD ([facility] V24, [facility] V28) Hypercholesteremia Primary hypertension COMPREHENSIVE METABOLIC PANEL Routine 07/14/2024 10:36 AM EST Type 2 diabetes mellitus with stage 3 chronic kidney disease, with long-term current use of insulin, unspecified whether stage 3a or 3b CKD (CMS/HCC V24, [facility] V28) Hypercholesteremia Primary hypertension LIPID PANEL WITH REFLEX TO DIRECT LDL Routine 07/14/2024 10:36 AM EST Type 2 diabetes mellitus with stage 3 chronic kidney disease, with long-term current use of insulin, unspecified whether stage 3a or 3b CKD ([facility] V24, [facility] V28) Hypercholesteremia Primary hypertension MG MAMMO DIGITAL SCREENING W DIMA RIGHT Routine 04/24/2024 9:53 AM EST Encounter for screening mammogram for breast cancer DXA BONE DENSITY STUDY 1+ SITS AXIAL SKEL Routine 07/03/2020 9:59 AM EST Encounter for prophylactic measures, unspecified from Last 3 Months or Most Recently Relevant to Health Maintenance Results * Thyroid stimulating hormone with reflex to free t4 and free t3 (11/03/2024 9:16 AM EDT) TSH 0.91 0.40 - 4.00 mcIU/mL LAB CHEMISTRY METHOD 11/03/2024 12:46 PM EDT [facility] Blood Venous blood specimen / Unknown Venipuncture / Unknown 11/03/2024 9:16 AM EDT 11/03/2024 9:16 AM EDT us Caitlin MORE LAB BLOOD ORDERABLES Final Result [facility]) [facility] [address] [place] [address], [place] [phone] * (ABNORMAL) Hemoglobin A1c (11/03/2024 9:16 AM EDT) [facility] Hemoglobin A1C 7.6(H) <6.5 % LAB CHEMISTRY METHOD 11/03/2024 10:21 PM EDT [facility] Mean Bld Glu Estim. 171 mg/dL LAB CHEMISTRY METHOD 11/03/2024 10:21 PM EDT [facility] Blood Venous blood specimen / Unknown Venipuncture / Unknown 11/03/2024 9:16 AM EDT 11/03/2024 9:16 AM EDT Caitlin MORE LAB BLOOD ORDERABLES Final Result [facility] [address] [place] [address], [place] [phone] * POC glucose manually resulted (11/03/2024 8:39 AM EDT) [facility] Glucose POC 179 mg/dL Comment:non fasting Blood Capillary blood specimen / Unknown 11/03/2024 8:39 AM EDT Caitlin MORE POINT OF CARE TEST ENTER/ED IT ORDERABLES Final Result * (ABNORMAL) Lipid panel with reflex to direct LDL (07/14/2024 10:36 AM EST) [facility] Cholesterol 128 0 - 200 mg/dL LAB CHEMISTRY METHOD 07/14/2024 6:04 PM [facility] Triglycerides 220(H) 0 - 150 mg/dL LAB CHEMISTRY METHOD 07/14/2024 6:04 PM [facility] HDL 33(L) >=40 mg/dL LAB CHEMISTRY METHOD 07/14/2024 6:04 PM [facility] LDL Calculated 51 0 - 100 mg/dL LAB CHEMISTRY METHOD 07/14/2024 6:04 PM [facility] VLDL Cholesterol Leroy 44 mg/dL LAB CHEMISTRY METHOD 07/14/2024 6:04 PM [facility] Non HDL Chol. (LDL+VLDL) 95 <145 mg/dL LAB CHEMISTRY METHOD 07/14/2024 6:04 PM [facility] Chol/HDL Ratio 3.9 0.0 - 4.4 LAB CHEMISTRY METHOD 07/14/2024 6:04 PM [facility] Blood Venous blood specimen / Unknown Venipuncture / Unknown 07/14/2024 10:36 AM EST 07/14/2024 10:36 AM EST us Bhakti Rodgers MD LAB BLOOD ORDERABLES Final Resul t Performing Organization Address City/[facility]/ZIP Co de Phone Number [facility] [address] [place] [address], [place] [phone] * Microalbumin creatinine urine ratio (07/14/2024 10:36 AM EST) Creatinine, Urine 124.0 mg/dL LAB CHEMISTRY METHOD 07/14/2024 2:05 PM [facility] Microalb, Ur 7.1 0.0 - 29.0 mg/L LAB CHEMISTRY METHOD 07/14/2024 2:05 PM [facility] Microalb/Creat Ratio 6 <30 mg/g creat LAB CHEMISTRY METHOD 07/14/2024 2:05 PM [facility] Urine Urine specimen obtained by clean catch procedure / Unknown Non-blood Collection / Unknown 07/14/2024 10:36 AM EST 07/14/2024 10:36 AM EST us Bhakti Rodgers MD LAB URINE ORDERABLES Final Resul t Performing Organization Address City/[facility]/ZIP Co de Phone Number [facility] [address] [place] [address], [place] [phone] * (ABNORMAL) Comprehensive metabolic panel (07/14/2024 10:36 AM EST) Sodium 138 133 - 145 mmol/L LAB CHEMISTRY METHOD 07/14/2024 6:04 PM [facility] Potassium 5.0 3.5 - 5.5 mmol/L LAB CHEMISTRY METHOD 07/14/2024 6:04 PM [facility] Chloride 102 96 - 110 mmol/L LAB CHEMISTRY METHOD 07/14/2024 6:04 PM [facility] CO2 30 21 - 32 mmol/L LAB CHEMISTRY METHOD 07/14/2024 6:04 PM [facility] Anion Gap 6 3 - 11 LAB CHEMISTRY METHOD 07/14/2024 6:04 PM [facility] Glucose 222(H) 70 - 100 mg/dL LAB CHEMISTRY METHOD 07/14/2024 6:04 PM [facility] BUN 21 5 - 25 mg/dL LAB CHEMISTRY METHOD 07/14/2024 6:04 PM [facility] Creatinine 1.20(H) 0.50 - 1.10 mg/dL LAB CHEMISTRY METHOD 07/14/2024 6:04 PM [facility] eGFR 48(L) >=60 mL/min/1. 73m2 LAB CHEMISTRY METHOD 07/14/2024 6:04 PM [facility] Comment:Calculation based on the Chronic Kidney Disease Epidemiology Collaboration (CKD-EPI) equation refit without adjustment for race. BUN/Creatinine Ratio 17.5 LAB CHEMISTRY METHOD 07/14/2024 6:04 PM [facility] Calcium 9.6 8.5 - 10.5 mg/dL LAB CHEMISTRY METHOD 07/14/2024 6:04 PM [facility] AST (SGOT) 56(H) 10 - 42 unit/L LAB CHEMISTRY METHOD 07/14/2024 6:04 PM [facility] ALT (SGPT) 59 10 - 60 unit/L LAB CHEMISTRY METHOD 07/14/2024 6:04 PM EST [facility] Alkaline Phosphatase 160(H) 42 - 121 unit/L LAB CHEMISTRY METHOD 07/14/2024 6:04 PM EST [facility] Total Protein 7.3 6.0 - 8.0 g/dL LAB CHEMISTRY METHOD 07/14/2024 6:04 PM EST [facility] Albumin 3.5 3.2 - 5.0 g/dL LAB CHEMISTRY METHOD 07/14/2024 6:04 PM [facility] Total Bilirubin 1.3 0.0 - 1.4 mg/dL LAB CHEMISTRY METHOD 07/14/2024 6:04 PM EST [facility] Blood Venous blood specimen / Unknown Venipuncture / Unknown 07/14/2024 10:36 AM EST 07/14/2024 10:36 AM EST us Bhakti Rodgers MD LAB BLOOD ORDERABLES Final Resul t [facility] [address] [place] [address], * MG Mammo Digital Screening w Dima [...] for biopsy. PQRI CPT II 3342F Code 71364, 79809 PQRI 225 CPT II 7025F TISSUE DENSITY: There are scattered areas of fibroglandular density. (BI-RADS category B) IMPRESSION: Benign. BI-RADS CATEGORY: 2 - BENIGN RECOMMENDATION: Screening bilateral mammogram is recommended in 1 year. Mammo Location: [facility], [address] [place] [id number] -------- FINAL REPORT -------- Dictated By: Isreal Hernadez Dictated Date: 04/26/2024 10:19 ET Assigned Physician: Isreal Hernadez Reviewed and Electronically Signed By: Isreal Hernadez Signed Date: 04/26/2024 10:28 ET Workstation ID: [id number] Transcribed By: Self Edit Transcribed Date: 04/26/2024 [...] and CC projection is performed in the Xangati 2000-D unit. Computer aided detection utilizing the Solaris Solar HeatingD system was utilized. FINDINGS: The breasts are [...] and CC projection is performed in the [employer] 2000-D unit. Computer aided detection utilizing the Avenidaystem was utilized. FINDINGS: The breasts are again [...] for biopsy. PQRI CPT II 3342F Code 43385, 55311 PQRI 225 CPT II 7025F TISSUE DENSITY: There are scattered areas of fibroglandular density.(BI-RADS category B) IMPRESSION: Benign. BI-RADS CATEGORY: 2 - BENIGN RECOMMENDATION: Screening bilateral mammogram is recommended in 1 year. Mammo Location: [facility], [address] [place] [id number] -------- FINAL REPORT -------- Dictated By: Isreal Hernadez Dictated Date: 04/26/2024 10:19 ET Assigned Physician: Isreal Hernadez Reviewed and Electronically Signed By: Isreal Hernadez Signed Date: 04/26/2024 10:28 ET Workstation ID: [id number] Transcribed By: Self Edit Transcribed Date: 04/26/2024 10:22 ET us Self Referral Sppl IMG BI PROCEDURES Final Resul t * DXA BONE DENSITY STUDY 1+ SITS AXIAL SKEL (07/03/2020 9:59 AM EST) Anatomical Region Laterality Modality Bone Densitometr y 05/29/2020 12:2 0 PM EST Narrative 07/03/2020 12:44 PM EST BONE DENSITY (DEXA) Lumbar Spine T-score is 2.8. (SD relative to 20-29 y/o adult) Z-score is 4.7. (SD relative to age matched peers) This is considered normal by WHO criteria. Left Hip T-score is 1.0. Z-score is 2.7. This is considered normal by WHO criteria. IMPRESSION: This patient is considered to have normal bone density by WHO criteria. The [facility] Department of Internal Medicine recommends using National [...] alternative screening schedule based on migdalia Padilla., [facility] May 28, 2011 for patients with osteopenia [...] normal bone density by WHO criteria. The [facility] Department of Internal Medicine recommendsusing National Osteoporosis [...] screening schedule based on patrick Padilla al., [facility] for patients with osteopenia (based on hip BMD T-score) is as follows: * advanced osteopenia (T scores -2.00 to -2.49), BMD testing every year * moderate osteopenia (T scores -1.50 to -1.99), BMD testing every 5years mild osteopenia or normal BMD (T scores -1.50 and higher), BMD testingevery 15 years Kizzy Marshall MD [facility] DXA PROCEDURES Final Resul t from Last 3 Months or Most Recently Relevant to Health Maintenance Insurance [place] [employer] [place] Advance Directives Documents on File Type Date Recorded Patient Online Merchant Expl anation Health Care Decision (hx) 01/27/2022 AD MARKHAM DIRECTIVE Health Care Decision (hx) 01/27/2022 AD MARKHAM DIRECTIVE Health Care Decision (hx) 01/27/2022 AD MARKHAM DIRECTIVE Health Care Decision (hx) 01/27/2022 AD MARKHAM DIRECTIVE Health Care Decision (hx) 01/27/2022 AD MARKHAM DIRECTIVE Health Care Decision (hx) 01/27/2022 AD MARHKAM DIRECTIVE Health Care Decision (hx) 01/27/2022 AD MARKHAM DIRECTIVE Health Care Decision (hx) 01/27/2022 AD MARKHAM DIRECTIVE Health Care Decision (hx) 01/27/2022 AD MARKHAM DIRECTIVE Health Care Decision (hx) 01/27/2022 AD MARKHAM DIRECTIVE Care Teams Churn Operator Relationship Specialty Start Date End Date Bhakti Rodgers MD [address] [place] [address] PCP - General Internal Medicine 07/02/20
--- OUTSIDE RECORDS SUMMARY | 2024-12-19 11:58 | XMS_ITS | Clinical Summary ---
Author Organization [facility] Address [address] [place] [phone] Phone Care Team Providers Care Process Specialist Name Role Phone Bhakti Rodgers MD Primary Care Provider [phone] Allergies Active Allergy Reactions Criticality Noted Date Comments Azithromycin 09/12/2023 Bupropion 09/12/2023 Erythromycin Base 09/12/2023 Metformin 09/12/2023 Medications risperiDONE (RISPERDAL) 0.5 MG tablet Take 0.5 mg by mouth nightly at bedtime. 09/12/2023 Active lisinopril (PRINIVIL,ZESTR IL) 5 MG tablet Take 5 mg by mouth daily. 09/12/2023 Active levothyroxine (SYNTHROID, LEVOTHROID) 125 MCG tablet Take 125 mcg by mouth every morning. 09/12/2023 Active ubrogepant (UBRELVY) 100 mg tablet Take 100 mg by mouth once as needed for migraine. 09/12/2023 Active lidocaine 5 % Place 1 patch onto the skin daily. 09/12/2023 Active thiamine (VITAMIN B-1) 100 MG tablet Take 100 mg by mouth daily. 09/12/2023 Active simvastatin (ZOCOR) 20 MG tablet Take 20 mg by mouth nightly at bedtime. 09/12/2023 Active primidone (MYSOLINE) 50 MG tablet Take 50 mg by mouth 3 (three) times a day. 09/12/2023 Active insulin glargine (LANTUS) 100 unit/mL injection vial Inject 52 Units under the skin 2 (two) times a day. 09/12/2023 Active gabapentin (NEURONTIN) 100 MG capsule Take 100 mg by mouth 3 (three) times a day. 09/12/2023 Active cloNIDine HCL (CATAPRES) 0.1 MG tablet Take 0.1 mg by mouth every 8 (eight) hours. 09/12/2023 Active cholecalciferol 25 MCG (1,000 unit) tablet Take 1,000 Units by mouth daily. 09/12/2023 Active aspirin (ASPIR-81 ORAL) Take 81 mg by mouth daily. 09/12/2023 Active magnesium hydroxide (MOM) 400 mg/5 mL Susp Take 400 mg by mouth as needed (constipatio n). 09/12/2023 Active insulin lispro (ADMELOG, HUMALOG) 100 unit/mL injection pen Inject 1-12 Units under the skin as needed (per sliding scale). 100-125 5 units 126-150 10 units 151-200 15 units 201-250 17 units 251-300 20 units 301-350 25 units 351-400 30 units 09/12/2023 Active LORazepam (ATIVAN) 0.5 MG tablet Take 0.5 mg by mouth daily. 0.5mg @ hs and prn anxiety 10/06/2023 Active divalproex (DEPAKOTE) [address] tablet Take 125 mg by mouth 2 (two) times a day. 10/06/2023 Active sulfamethoxazol e-trimethoprim (BACTRIM DS) 800-160 mg per tablet Take 1 tablet by mouth 2 (two) times a day. BID x 10 days 09/25/2023 Active Social History Tobacco Use Types Packs/Day Years Used Date Smoking Tobacco: Never Assessed Home Health Assessment: Transportation Answer Date Recorded Lack of Transportation (Medical) Yes 12/29/2023 Lack of Transportation (Non-Medical) Yes 12/29/2023 Patient Unable or Declines to Respond No 12/29/2023 Education Answer Date Recorded Are you interested in more education? Not on jairo e 09/05/2022 Are you concerned about learning? Not on file 09/05/2022 No 09/05/2022 No 09/05/2022 Digital Access Answer Date Recorded No 10/06/2022 No 10/06/2022 Reliable internet access at home? Not on file 10/06/2022 Device with a working camera? Not on file Comments Unknown Sex and Gender Information Value Date Recorded Sex Assigned at Not on file Legal Sex Female 2:09 PM EDT Gender Identity Not on file Sexual Orientation Not on file Last Filed Vital Signs Vital Sign Reading Time Taken Comments Blood Pressure 118/72 12/03/2023 10:22 AM EDT Pulse 80 12/03/2023 10:22 AM EDT Temperature 36.2 C (97.1 F) 12/03/2023 10:22 AM EDT Respiratory Rate 18 12/03/2023 10:22 AM EDT Oxygen Saturation 98% 12/03/2023 10:22 AM EDT Inhaled Oxygen Concentration - - Weight 105.2 kg (232 lb) 09/12/2023 10:00 AM EDT Height 160 cm (5' 3 ) 09/12/2023 10:00 AM EDT Body Mass Index 41.1 09/12/2023 10:00 AM EDT Plan of Treatment Not on file Medical Devices Not on file Insurance [facility] MEDICARE HMO REPLACEMENT [facility] [place] MED[place] RE[facility]AC[facility] [place] [facility] MEDIC[facility] HMO [facility] MED[facility] HMO [facility]PLACEMENT [facility] MED[facility] HMO REPLACEMENT [facility] Care Teams Process Specialist Relationship Specialty Start Date End Date Bhakti Rodgers MD [address] [place] [id number] PCP - General Internal Medicine 09/10/23 Additional Source Comments The information contained in this document represents components of the legal health record. It is not the complete legal health record.[facility]
== END 2024-12-19 11:50 | disposition home or self-care (01) ==
LOC: HO.RHES 10:51
PROVIDERS: Visit Provider Student in an Organized Health Care Education/Training Program
DX: R76.8 Other specified abnormal immunological findings in serum (principal); G25.81 Restless legs syndrome
CPT/HCPCS: 99203

== ENCOUNTER → 2024-12-19 10:50 | Outpatient (BNVA) | payer MEDICARE, SELFPAY | PROVIDERS: Visit Provider Student in an Organized Health Care Education/Training Program | DX: M25.512 Pain in left shoulder (principal); R76.8 Other specified abnormal immunological findings in serum; G25.81 Restless legs syndrome | CPT/HCPCS: 99202 ==

== ENCOUNTER 2025-04-25 08:51 | Outpatient (AMB) | payer MEDICARE, SELFPAY ==
[2025-04-25 08:57] VITALS: BP 130/60; PULSE 74; O2SAT 97; BMI 41.2
--- NOTE | 2025-04-25 08:57 | A.OFFVIS_ITS ---
Vital Signs 04/25/25 08:57 Height 5 ft 4 in Weight 240 lb BMI 41.2 BP 130/60 Blood Pressure Location Rt brachial Position Sitting Pulse 74 Pulse Source Pulse Oximeter Pulse Oximetry (%) 97 Oxygen Delivery Method Room Air Intake Visit Reasons: 6m follow up Intake Note: Patient presents 6 month follow up for sleep difficulties. Care Asst Required: No Accompanied by: Self / Same As Patient Allergies Iodinated Contrast Media (IVP DYE) Allergy (Severe, Verified 04/25/25 08:57) SEDATION,TACHYCARDIA azithromycin Allergy (Unknown, Verified 04/25/25 08:57) Hives erythromycin base (ERYTHROMYCIN BASE) Allergy (Unknown, Verified 04/25/25 08:57) HIVES metformin Adverse Reaction (Unknown, Verified 04/25/25 08:57) Diarrhea Medication List - Last Reconciled 04/25/25 by ANTHONY Almonte aspirin 81 mg PO DAILY blood sugar diagnostic (FreeStyle Lite Strips) cholecalciferol (vitamin D3) 25 mcg PO DAILY clonidine HCl 0.1 mg PO TID divalproex (Depakote) 125 mg PO BID 30 days gabapentin 100 mg PO TID ketorolac 10 mg PO Q8H 3 days levothyroxine 125 mcg PO DAILY@0600 lorazepam (Ativan) 0.5 mg PO BID PRN 30 days ondansetron HCl 4 mg PO Q8H pen needle, diabetic (BD Ultra-Fine Micro Pen Needle) simvastatin 20 mg PO BEDTIME tramadol 50 mg PO BID ubrogepant (Ubrelvy) 50 - 100 mg (0.5 - 1 x 100 mg) PO BID PRN 30 days HPI Comments Details: 74-yr-old female presents for follow-up for hemiplegic migraine, migraine, tremor in the setting of mildly positive DaTSCAN. She would also like to discuss increasing sleep difficulties. She is accompanied by her . She states she has had a more bothersome headache every few weeks, which typically respond to Ubrelvy and lorazepam taken together. However, Ubrelvy tends to cause increased nausea. Therefore, her has been has been giving her lorazepam with her as-needed tramadol, which does seem to help as well. She has not had a full hemiplegic migraine attack associated with fever and loss of consciousness. She states her mood and her memory has been stable. She has not been noticing any tremor recently She states her mood is stable, however does note some increased stress related to her daughter and granddaughter who lives with her, and her feelings on the relationship between her daughter and her granddaughter. She reports that she has been experiencing an increase in BLE, L > R, discomfort, uncomfortable feeling a/w leg cramps. This started a long time ago, but has increased in frequency and intensity. This discomfort starts once she is in bed, and does not occur during the day or evening. She has to sit up and walk but the discomfort persists. She endorses restlessness at night. She denies any low back pain, leg swelling. She goes to bed around 9pm, and gets up around 7-9am. She takes Gabapentin 100mg TID- generalized nerve pain. She also has Tramadol 50mg bid for left shoulder pain by physiatry. 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 Pt reports she is having approximately 4 mild-moderate migraine attacks per month. Her last full hemiplegic migraine attack was about a month ago- reports she had to lay down and sleep all day. She is aware of the first sign of the attack and using lorazepam and Ubrelvy w/ good effect. She is usng scheduled lorazepam, which is helping her mood overall. She is working w/ pain management for chronic arthritic back pain- was recently started on Tramadol by PA at [facility]. Pt states her walking is slow. 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 No falls. She has not tried CD-LD yet. She did have a migarine and panic attack in early August, went to [facility] ER- per note migraine had resolved, and was d/c'd home on home ubrelvy and new prn Fioricet. 05/30/2024, brain david SPECT study was positive, showed slight decreased activity within the left putamen. There was symmetric activity in the anterior aspect of the caudate nuclei bilaterally. 04/20/2024 lab results were notable for elevated random glucose 342. Elevated BUN 20- baseline, creatinine 0.91 WNL Elevated AST 56, ALT 68, alk-phos 125- baseline for patient. BLUE positive 1:80, nuclear, dense fine speckled (September of 2022 BLUE positive 1:80 with nuclear homogeneous pattern). CBC-WNL, with HCT low at 35.9-baseline. ESR, vitamin B1, vitamin B12, MMA level, folate, homocystine, TSH- WNL Today, patient and state that they are not very concerned about patient's memory. Fair most concerned about patient's chronic left shoulder pain, which started 3 years ago following left breast mastectomy. They state they were told this was present shoulder. They have seen physiatry before at [facility] in [place]. They were told she was not a candidate for cortisone injection as her blood sugars are not well controlled. She has difficulties describing the pain, but is always there, and it interferes with her sleep, she needs to sleep always on her right side. She does note that she continues to shake, however states this is only when her blood sugars are off. Patient is not concerned about her walking, states she does not use a device other than walking with a grocery cart for stability when shopping. She denies any recent falls. She can have lightheadedness with the migraine attacks, but no usual orthostatic lightheadedness. 04/12/2024, previous HPI: 73-yr-old female presents for f/u visit for migraine, accompanied by her dtr. Maryann. Dtr reports that pt has migraine- her typical migraine a/w inability to speak, loss of body control, slurred speech, fever, and cold sweats. Her last full attack was in Sep, patient was treated at [facility]. Stopped Ajovy as pt still seemed to be having the migraine episodes. They are using Ubrelvy and lorazepam p.r.n. at onset of milder attacks, which does seem to be helpful. The Ubrelvy does seem to cause some abdominal bubbling. Daughter notes that she has just started to have episode of right sided hemip legic migraine, her older sister has similar symptoms, and her mother's sister also has symptoms of hemiplegic migraine. They have never had genetic testing. Her daughter is concerned about patient's memory. Patient is often home alone. Pt has been crying more. The littlest things upset her. States she is repeating herself and hesitating to initiate speech at times. Sometimes she stares off into space, more so after taking her divalproex dose. She recently went without checking her blood sugar for a few days because she had ran out of her test strips. Her daughter does help her manage her medications and fill her pill boxes. She went to her sister's house for Thanksgiving, and did not know where she was. She is not sleeping well. During cognitive eval today, patient has visible tremor. Patient states she has had a tremor for some time. She endorses hyposmia for a long time, soft speech, occasional orthostatic lightheadedness, generalized stiffness, sleep talking, sleep behaviors, sleep apnea but does not use a CPAP machine. She denies hallucinations, constipation. [facility] Medical History Fever Fever of unknown origin Encephalopathy acute Encephalopathy acute Encephalopathy Hyperthermia Hemiplegic migraine Left-sided weakness Malaise Medication side effect Status migrainosus Migraine Type 2 diabetes mellitus CKD (chronic kidney disease) stage 2, GFR 60-89 ml/min Anxiety Obstructive sleep apnea Encephalitis Hypothyroid HTN (hypertension) HLD (hyperlipidemia) Diabetes Complicated migraine Surgical History Hx of left mastectomy Hx of cholecystectomy H/O section Family History Mother Lung cancer Diabetes Depression Daughter Alcohol abuse Father FH: cholecystectomy Social History Household Members: Children Housing: House Do you presently have visiting nurse or other home services: Yes Unable to assess alcohol history related to: Unable to respond Alcohol intake: never Comment: 1 TO 1 SITTER Patient Tobacco Use Status: Never used Tobacco e-Cigarette/Vaping Use: Never Used Second Hand Smoke Exposure: No Advance Directives Date on File: 09/28/22 service: No Current occupational status: retired Physical Exam Vital Signs: Last Vital Signs Pulse 74 04/25/25 08:57 BP 130/60 04/25/25 08:57 Pulse Ox 97 04/25/25 08:57 Oxygen Delivery Method Room Air 04/25/25 08:57 BMI result Body Mass Index 41.2 Const General: cooperative and no acute distress Resp Effort & Inspection: normal respiratory effort and able to speak in complete sentences Neuro Other: General: A&O x's 3- less noticeable STM lapses today Expression: Mildly decreased Voice: Soft voice Tremor: No visible LUE rest tremor today Tone: BUE tone. Has difficulty elevating left arm up fully. Dyskinesia: None FFM: Decreased with poor fluidity, more so on left Foot taps: Decreased, more so on left Gait: Slow to stand, however improve posture, and gait overall Psych: Pleasant affect. Assessment & Plan Assessment & Plan (1) Familial hemiplegic migraine type 2: Comment: 08/25/24 Genetic testing: positive for AT, c.2723G>A([id number]), heterozygous missense, autosomal dominant- c/w Familial HM Type 2. Pt has a child w/ migraine s/s s/w HM. FHM type 2 attacks can involve, weakness, fever, seizure, comma, and cognitive impairment including MR. Attacks may triggered by stress, mild head traumas, and conventional cerebral angiography. Note- During a HM attack w/ fever, CSF studies may show lymphocytosis up to 350 cell/mm and CSF protein up to 228mg/dl. Code(s): G43.409 - Hemiplegic migraine, not intractable, without status migrainosus Category: Medical (2) Migraine with aura: Comment: vs episodes of malignant catatonia- elevated CK > 2000 during August hosp admission, however attack responded to Imitrex and Lorazepam. Code(s): G43.109 - Migraine with aura, not intractable, without status migrainosus Category: Medical Qualifiers: Status migrainosus presence: without status migrainosus Intractability: not intractable Qualified Code(s): G43.109 - Migraine with aura, not int ractable, without status migrainosus (3) Migraine: Comment: suggestive of hemiplegic migraine Code(s): G43.909 - Migraine, unspecified, not intractable, without status migrainosus Category: Medical Qualifiers: Intractability: not intractable Migraine type: migraine (< 15 days per month) with aura Status migrainosus presence: with status migrainosus Qualified Code(s): G43.101 - Migraine with aura, not intractable, with status migrainosus (4) Tremor: Comment: Positive DaTSCAN. Tremor onset preceded starting Depakote tx. Code(s): R25.1 - Tremor, unspecified Category: Medical (5) Mood disorder: Code(s): F39 - Unspecified mood [affective] disorder Category: Medical (6) Sleep difficulties: Code(s): G47.9 - Sleep disorder, unspecified Category: Medical (7) Cognitive disorder: Code(s): F09 - Unspecified mental disorder due to known physiological condition Category: Medical Plan For familial hemiplegic migraine, type 2: [place] HM genetic study, results of which showed were positive for an AT mutation, c.2723G>A([id number]), heterozygous missense, autosomal dominant. Pt's h/o of prolonged reversible migraine attacks w/ weakness, fever, altered level of consciousnious, is c/w a HM type 2 presentation. Additionally, 1 of the patient's daughters has reported to this clinician that she also having prolonged migraine w/ aura/weakness. These results in consideration of her personal and family history are c/w a dx of FHM type 2. * Pt has informed one of her children of this diagnosis. Pt has another child, known to our practice, who pt states we can inform of these genetic results but the pt herself is not currently communicating w/ her child. * Considerations specific to FHM: Stress and even mild head injury may trigger HM attacks. Conventional cerebral angiography would now be considered contraindicated for this pt, as this may trigger a hemiplegic migraine attack, however pt may undergo modern MRA/CTA. During a HM attack w/ fever, CSF studies may show lymphocytosis up to 350 cell/mm and CSF protein up to 228mg/dl. * Continue Depakote 125mg bid- for mood, migraine. * Continue Ubrelvy prn for now- as I would avoid triptans d/t variable BP/HTN. * However, we will trial her on a sample of as-needed Nurtec ODT 75 mg tab at onset of migraine attack, to see if this is better tolerated than Ubrelvy. * Continue Lorazepam 0.5mg- may take qhs and 1 extra tab per day prn- may take at onset of migraine attack w/ Ubrelvy or the Nurtec sample. * Trial ondansetron ODT 4 mg as needed every 8 hours for nausea * Advised that she should not take lorazepam and tramadol together, as this may cause serious and even fatal adverse effects. * Previous migraine trials: venlafaxine, also topiramate, risperdal, primidone, lisinopril. * Future considerations: Increasing Depakote, trialing verapamil or Acetazolamide, Triptan trial if HTN stabilizes (no longer considered a contraindication in HM ast the aura isc onsidered CSD rather than secondary to a vascular process). For migraine with aura: Acute treatment: * Continue Ubrogepant (Ubrelvy) 100mg tab, 1/2 - 1 tab (50-100mg) at onset of headache, may repeat in 2 hours. Max of 2 tabs (200mg) per 24 hours. May adjunct with OTC Tylenol 650-1000mg q 4-6 hours as needed. * As above, we will trial her on a sample of as-needed Nurtec ODT 75 mg tab at onset of migraine attack, to see if this is better tolerated than Ubrelvy. * Trial ondansetron ODT 4 mg as needed every 8 hours for nausea * Contraindications: all triptans and DHE d/t poorly controlled HTN. Preventive treatment: * Continue Depakote as above. For sleep with indications of restless leg syndrome: * Check labs for common etiologies * Start magnesium 400 mg daily at 18:00 * Discontinue gabapentin 100 mg 3 times a day * Start gabapentin 100 mg 3 times a day at 8am, 2pm, and 8pm; and 2 caps at 9pm- as this type for regimen can be more effective for RLS symptoms. 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 * 05/26/[address] without contrast- did not show any acute intracranial findings and no significant atrophy like change or white matter disease. Patient's movements and gait have improved slightly, we will continue to monitor Hold previous carbidopa levodopa order for now- pt did not start. Will follow-up upon review of above and patient to follow-up in clinic in 3-6 months or sooner as needed. Sample Dispensing Documentation * Medication: Nurtec 75 mg ODT * Contents per sample: 2 tablets per sleeve * Date dispensed: 04/25/2025 * Quantity given: 2 sleeve(s) * Lot #: [id number] * Expiration date: * Dispensed to: Directly to the patient * Instructions: Place one tablet under the tongue at the onset of a migraine attack. * Do not take more than one tablet per day. * Do not take with the Ubrelvy * Given by: ANTHONY Almonte- Orders: Orders Vitamin B12 and Folate 04/25/25 D64.9 - Anemia, unspecified, E03.9 - Hypothyroidism, unspecified, I10 - Essential (primary) hypertension, R25.1 - Tremor, unspecified Complete Blood Count Auto Diff 04/25/25 D64.9 - Anemia, unspecified, E03.9 - Hypothyroidism, unspecified, I10 - Essential (primary) hypertension, R25.1 - Tremor, unspecified Comprehensive Met. Panel 04/25/25 D64.9 - Anemia, unspecified, E03.9 - Hypothyroidism, unspecified, I10 - Essential (primary) hypertension, R25.1 - Tremor, unspecified TSH reflex Free T4 04/25/25 D64.9 - Anemia, unspecified, E03.9 - Hypothyroidism, unspecified, I10 - Essential (primary) hypertension, R25.1 - Tremor, unspecified Ferritin 04/25/25 D64.9 - Anemia, unspecified, E03.9 - Hypothyroidism, unspecified, I10 - Essential (primary) hypertension, R25.1 - Tremor, unspecified Methylmalonic Acid 04/25/25 D64.9 - Anemia, unspecified, E03.9 - Hypoth yroidism, unspecified, I10 - Essential (primary) hypertension, R25.1 - Tremor, unspecified Homocysteine 04/25/25 D64.9 - Anemia, unspecified, E03.9 - Hypothyroidism, unspecified, I10 - Essential (primary) hypertension, R25.1 - Tremor, unspecified IRON PROFILE 04/25/25 D64.9 - Anemia, unspecified, E03.9 - Hypothyroidism, unspecified, I10 - Essential (primary) hypertension, R25.1 - Tremor, unspecified Medications: New ondansetron 4 mg PO Q4H PRN 20 tabs 6RF migraine with nausea and vomiting 30 days magnesium oxide at 6pm. May hold for loose stools. 400 mg PO DAILY 90 tabs 3RF 90 days Changed From gabapentin 100 mg PO TID G25.81 - Restless legs syndrome To gabapentin 1 cap at 8am, 2pm,, and 8pm; and 2 caps at 9pm orally .; 450 caps 1RF 90 days G25.81 - Restless legs syndrome From divalproex (Depakote) 125 mg PO BID 30 days 60 tabs 6RF To divalproex (Depakote) 125 mg PO BID 180 tabs 4RF 90 days Refilled lorazepam (Ativan) 0.5 mg PO BID PRN 45 tabs 3RF migraine headache 30 days G43.409 - Hemiplegic migraine, not intractable, without status migrainosus Discontinued ondansetron HCl Discontinued Reason: Ancillary Entered New Order 4 mg PO Q8H 10 tabs 0RF Coding Level of Care Code Est Pt Level 4 (75623) Diagnoses Familial hemiplegic migraine type 2 G43.409 Migraine with aura and without status migrainosus, not intractable G43.109 Status migrainosus presence: without status migrainosus Intractability: not intractable Migraine with aura and with status migrainosus, not intractable G43.101 Intractability: not intractable Migraine type: migraine (< 15 days per month) with aura Status migrainosus presence: with status migrainosus Tremor R25.1 Mood disorder F39 Sleep difficulties G47.9 Cognitive disorder F09
--- OUTSIDE RECORDS SUMMARY | 2025-04-25 09:23 | XMS_ITS ---
Author Organization [facility] Care Team Providers Care Exhibitor Sales Name Role Phone Chance Cleary Unavailable Unavailable Sushila Singh Unavailable Unavailable Anabel Dumont Unavailable Unavailable Allergies and adverse reactions No Known Allergies Care Team Name Role Address Phone Organization Dates Anabel Dumont PCP [address] [facility] [address], [place], [address], [place] (Office): : [facility] 05/06/2023 - 05/15/2023 Chance Cleary [address] [facility] [address], [place], [address], [place] (Office): : : [facility] 05/06/2023 - 05/15/2023 Sushila Singh [address] [place], [address], [place] (Office): : [facility] 05/06/2023 - 05/15/2023 Immunizations Immunization Status Vaccine Details Vaccine Code CodeSystem Date Notes TB 2 Step Mantoux Skin Test new tuberculin skin test; unspecified formulation 98 CVX created date: 05/11/2023 consent date: 05/11/2023 TB 2 Step Mantoux Skin Test completed tuberculin skin test; unspecified formulation lotNumber: [id number] expiry: 07/07/2024 Mfg: PAR pharmaceatical Given 0.1 ml Right Forearm intradermally Step 1 of Multi-step with next step required 98 CVX created date: 05/09/2023 consent date: 05/09/2023 administer ed date: 05/09/2023 planted by Pa Angela Mental Status Section Date Assessment Total Score Description 05/15/2023 BIMS 13 cognitively int act CAM 0 No delirium ind icated PHQ-9 12 moderate depres sue 05/12/2023 BIMS 14 cognitively int act CAM 0 No delirium ind icated PHQ-9 12 moderate depres sue Insurance Providers Coverage Status Coverage Type Relationship to Subscriber Member Identifier Subscriber Identifier Group Identifier Payer Identifier and Other information Code: 51 Code System OID:[id number] .[id number]. 5 Code System Name: Source of Payment Typology (PHDSC) Display: Managed Care (Private) Translation: Code: Code System: OID:[id number] .[id number]. 1336 Code System Name: Insurance Type Code ([id number]) Display Name: Health Maintenance Organization (HMO) Plan Code: 81 Code System OID:[id number] .[id number]. 5 Code System Name: Source of Payment Typology (PHDSC) Display: Self Pay Translation: Code: 09 Code System: OID:[id number] .[id number]. 1336 Code System Name: Insurance Type Code ([id number]) Display Name: Self-pay Problems Problem # Description Date of onset Resolved Date Code CodeSystem Concern Status 1 OTHER SYMPTOMS AND SIGNS INVOLVING COGNITIVE FUNCTIONS AND AWARENESS 05/28/[address] active 2 ACUTE KIDNEY FAILURE, UNSPECIFIED 05/06/[address] active 3 ALTERED MENTAL STATUS, UNSPECIFIED 05/06/[address] active 4 ANXIETY DISORDER, UNSPECIFIED 05/06/[address] active 5 DEPRESSION, UNSPECIFIED 05/06/[address] active 6 DYSPHAGIA, UNSPECIFIED 05/06/[address] active 7 ESSENTIAL (PRIMARY) HYPERTENSION 05/06/[address] active 8 HALLUCINATIONS, UNSPECIFIED 05/06/[address] active 9 HYPERLIPIDEMIA, UNSPECIFIED 05/06/[address] active 10 HYPOKALEMIA 05/06/[address] active 11 HYPOTHYROIDISM, UNSPECIFIED 05/06/[address] active 12 INSOMNIA, UNSPECIFIED 05/06/[address] active 13 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 05/06/[address] active 14 METABOLIC ENCEPHALOPATHY 05/06/[address] active 15 MIGRAINE WITH AURA, NOT INTRACTABLE, WITHOUT STATUS MIGRAINOSUS 05/06/[address] active 16 MORBID (SEVERE) OBESITY DUE TO EXCESS CALORIES 05/06/[address] active 17 MUSCLE WEAKNESS (GENERALIZED) 05/06/[address] active 18 OTHER ABNORMALITIES OF GAIT AND MOBILITY 05/06/[address] active 19 PERSONAL HISTORY OF MALIGNANT NEOPLASM OF BREAST 05/06/[address] active 20 TYPE 2 DIABETES MELLITUS WITH DIABETIC NEUROPATHY, UNSPECIFIED 05/06/[address] active 21 TYPE 2 DIABETES MELLITUS WITH UNSPECIFIED COMPLICATIONS 05/06/[address] active 22 UNSTEADINESS ON FEET 05/06/[address] active Reason for Referral No Reasons for Referral Entered Social History Social History Observation Description Start Date End Date Code Code System Current Smoking Status Tobacco smoking consumption unknown 357733855 SNOMED CT Sex Assigned At Female 1950 11331-4 [facility] Gender Identity Sexual Orientation Vital Signs Code Code System Vitals Name Values and Units Timing Information 2339-0 LOINC Blood Sugar Djfeu=198.0 Units=mg/dL 05/15/2023 54653-4 LOINC Pain Level Value=0.0 05/15/2023 9279-1 LOINC Respiratory Rate Value=18.0 Units=/m in 05/14/2023 8462-4 [facility] Blood Pressure-Diastolic Value=69 Un its=mmHg 05/14/2023 8480-6 [facility] Blood Pressure-Systolic Kcode=662 Un its=mmHg 05/14/2023 8310-5 [facility] Body Temperature Value=97.8 Units= F 05/14/2023 8867-4 [facility] Heart rate Value=67.0 Units=/min 09/2023 60360-6 [facility] O2 % BldC Oximetry Value=97.0 Units= % 05/14/2023 46745-9 [facility] Weight Pfsvi=273.4 Units=Lbs 09/2023 8302-2 [facility] Height Value=64.0 Units=Inches 05/06/2023
--- OUTSIDE RECORDS SUMMARY | 2025-04-25 09:23 | XMS_ITS | Clinical Summary ---
Author Organization [facility] Address [address] [facility] [address] [place] [address] Phone Care Team Providers Care Music Composer Name Role Phone Bhakti Rodgers MD Primary Care Provider [phone] Allergies Active Allergy Reactions Criticality Noted Date [...] file Medical Devices Not on file Insurance [facility] MEDICARE HMO REPLACEMENT [facility]PLACEMENT [facility] REPLACEMENT [facility]MO [facility]PLACEMENT [facility]PL[facility] Care Teams Music Composer Relationship Specialty Start Date End Date Bhakti Rodgers MD [address] [place] [address] PCP - General Internal Medicine 09/10/23 Additional Source Comments The information contained in this document represents components of the legal health record. It is not the complete legal health record.[facility]
--- OUTSIDE RECORDS SUMMARY | 2025-04-25 09:23 | XMS_ITS | Clinical Summary ---
Author Organization [facility] Prior to 10/07/[address] [place] [address] Care Team Providers Care Nuclear Reactor Operator Name Role Phone Bhakti Rodgers MD Primary Care Provider [phone] Allergies Active Allergy Reactions Criticality Noted Date [...] age to complete this topic Care Teams Nuclear Reactor Operator Relationship Specialty Start Date End Date Bhakti Rodgers MD PCP - General Internal Medicine 09/11/20
--- OUTSIDE RECORDS SUMMARY | 2025-04-25 09:23 | XMS_ITS | Clinical Summary ---
Author Organization [facility] Address [address] [place] [phone] Phone Care Team Providers Care Copper Etcher Name Role Phone Bhakti Rodgers MD Primary Care Provider [phone] Allergies Active Allergy Reactions Criticality Noted Date [...] (two) times a day. 30 g 2 5 Active Additional Information Patient not taking.Reported on 01/31/2025 BD Ultra-Fine Micro Pen Needle 32 gauge x 1/4 needleIndication s:Type 2 diabetes mellitus with stage 3 chronic kidney disease, with long-term current use of insulin, unspecified whether stage 3a or 3b CKD (CMS/HCC V24, CMS/HCC V28) USE 1 PEN NEEDLE TO INJECT INSULIN 5 TIMES A DAY 500 each 1 5 Active LORazepam (ATIVAN) 0.5 mg tablet Take 1 tablet (0.5 mg total) by mouth 2 (two) times a day if needed. for anxiety Active traMADoL (ULTRAM) 50 mg tablet Take 1 tablet (50 mg total) by mouth 2 (two) times a day. for 7 days 5 Active blood sugar diagnostic (FreeStyle Lite Strips) test stripIndications :Type 2 diabetes mellitus with stage 3 chronic kidney disease, with long-term current use of insulin, unspecified whether stage 3a or 3b CKD ([facility] V24, [facility] V28) USE 1 STRIP TO CHECK GLUCOSE THREE TIMES DAILY 300 each 3 5 Active insulin lispro (HumaLOG KwikPen Insulin) 100 unit/mL injection pen Inject three times a day BEFORE meals per scale: 100-125: 6 units; 126-150: 19 units; 151-200: 24 units; 201-250: 26 units; 251-300: 28 units; 301-350: 34 units; 351-400: 37 units 45 mL 5 5 Active simvastatin (ZOCOR) 20 mg tablet TAKE 1 TABLET BY MOUTH AT BEDTIME 90 tablet 1 5 Active divalproex (DEPAKOTE) [address] tablet Take 1 tablet (125 mg total) by mouth 2 (two) times a day. 5 Active insulin glargine (Lantus Solostar U-100 Insulin) 100 unit/mL (3 mL) injection pen 62 units in the morning and 59 units in the evening 45 mL 3 5 Active gabapentin (NEURONTIN) 100 mg capsule Take 1 capsule (100 mg total) by mouth every 8 (eight) hours. 270 capsule 5 Active cloNIDine (CATAPRES) 0.1 mg tablet TAKE 1 TABLET BY MOUTH THREE TIMES DAILY 270 tablet 5 Active levothyroxine (SYNTHROID, LEVOTHROID) 125 mcg tablet Take 1 tablet (125 mcg total) by mouth 1 (one) time each day before breakfast. 90 tablet 5 Active Active Problems Problem Noted Date Diagnosed Date Stage 3a chronic kidney disease 12/13/2024 Type 2 diabetes mellitus wit h diabetic neuropathy, with long-term current use of insulin 12/13/2024 Depression 07/06/2024 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, with long-term current use of insulin 11/27/2020 Pulmonary nodules 09/13/2020 Type 2 diabetes mellitus wit h stage 3a chronic kidney disease, with long-term current use of insulin 09/28/2019 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 Overview (07/06/2024): 2018 and 06/30 episodes Hypercholesteremia Hypertension Hypothyroidism Malignant catatonia Overview (07/06/2024): : Avoid triptans, SSRIs, bupropion Osteoarthritis of left knee KUMAR (obstructive sleep apnea) Overview (12/13/2024): UNTREATED (12/13/24) Neurodermatitis Encounters Date Type Department Care Team Description 01/31/2025 8:45 AM EDT Office Visit Endocrinology [id number] [place] [phone] Caitlin Nash PA Type 2 diabetes mellitus with stage 3 chronic kidney disease, with long-term current use of insulin, unspecified whether stage 3a or 3b CKD (CMS/HCC V24, CMS/HCC V28) (Primary Dx); Primary hypertension; Stage 3a chronic kidney disease (CMS/HCC V24, CMS/HCC V28); Hypothyroidism due to acquired atrophy of thyroid from Last 3 Months Immunizations Immunization Administration Dates Next Due Influenza Quadravalent, 0.5m [...] eservative (Fluzone; Afluria) 6mo and older 03/10/2016,04/24/2015 [place] SARS-CoV-2 COVID-19, mRNA, LNP-S, preservative free 08/21/2020 Pneumococcal conjugate 13 va lent (Prevnar 13, PCV13) 2mo and older 10/15/2017 Pneumococcal polysaccharide 23 valent (Pneumovax 23) 2yo and older 06/29/2022,12/19/2015,06/05/2015 Td Tetanus diptheria, preser vative free (Tenivac) 7yo and older 06/29/2022 Zoster Live 01/28/2016 Zoster recombinant (Shingrix ) 19yo and older 10/02/2020,09/14/2020,08/03/2020 Surgical History Surgery Date Site/Laterality Comments CHOLECYSTECTOMY 1985 SECTION 1980, 1983 CATARACT EXTRACTION 02/24/19, 03/09/19 Bilateral bilateral BREAST BIOPSY 03/2019 lt breast bx-breast ca-tumor MASTECTOMY 05/10/2019 Left Medical History Medical History Date Comments Hypertension Depression DX:Depression Hypercholesteremia Hypothyroidism Osteoarthritis of left knee Neurodermatitis 07/22/2015 Hemiplegic migraine 07/24/20202017 and 2/2 1 episodes KUMAR (obstructive sleep apnea) 04/13/2022 Malignant catatonia (CMS/HCC V24, [facility] V28) 08/07/2022 : Avoid triptans, SSRIs, bupropion Breast cancer (CMS/HCC V24, [facility] V28) Family History Medical History Relation Name [...] Record ed Within the last 3 months, cathy martell many times did you visit the emergency [...] for your loved ones. For example, children's ministries director or elderly care for an older adult? [...] Date Recorded What is your living situation? Unrecognized valu e 12/13/2024 Comments No Sex and Gender Information [...] Sign Reading Time Taken Comments Blood Pressure 129/59 01/31/2025 8:46 AM EDT 5 m in Pulse 84 01/31/2025 8:46 AM EDT 5 min Temperature 36.2 C (97.1 F) 01/31/2025 8:34 AM EDT Respiratory Rate 18 12/13/2024 11:26 AM EDT Oxygen Saturation 93% 12/13/2024 11:26 AM EDT Inhaled Oxygen Concentration - - Weight 109 kg (240 lb 3.2 oz) 01/31/2025 8:34 AM EDT Height 162.6 cm (5' 4 ) 01/31/2025 8:34 AM EDT Body Mass Index 41.23 01/31/2025 8:34 AM EDT Plan of Treatment Upcoming Encounters Date Type Department Care Team (Late st Contact Info) Description 04/26/2025 8:45 AM EST Office Visit Adult Medicine [facility] [address] [place], [place] [phone] Bhakti Rodgers MD [address] [place], [place] Health Maintenance Due Date Last Done Comments Diabetes: Annual Retina Eye Exam 1962 RSV Immunization Adult Patients (1 - Risk 50-74 years 1-dose series) 2002 COVID-19 Vaccine (3 - Pfizer risk series) 10/12/2020 09/14/2020, 08/21/2020 Influenza Vaccine (#1) 2025 , 01/30/2024, 02/22/2023, Additional history exists Breast Cancer Screening 04/24/2025 04/24/20, 02/11/2021, 02/03/2021, Additional history exists Diabetes: Annual Urine Albumin-Creatinine Ratio (uACR) 07/14/2025 07/14/2024 Diabetes: Blood Sugar Control Test (HGBA1C) 07/31/2025 01/31/2025, 11/03/2024, 07/14/2024, Additional history exists Diabetes: Annual Foot Exam 10/10/2025 10/10/2024 Falls Risk Assessment 12/13/2025 12/13/2024 Medicare Annual Wellness Visit 12/13/2025 12/13/2024 Social Influencers of Health Screening 12/13/2025 12/13/2024 Diabetes: Annual GFR (Glomerular Filtration Rate) 01/31/2026 01/31/2025, 07/14/2024, 09/17/2023, Additional history exists Hypertension/CHF/CAD Annual BMP Blood Test 01/31/2026 01/31/2025, 07/14/2024, 09/17/2023, Additional history exists Colorectal Cancer Screening: Colonoscopy 12/04/2026 12/04/2016, 12/04/2016 Cholesterol Screening (Lipid Panel) 01/31/2030 01/31/2025, 07/14/2024 DTaP,Tdap,and Td Vaccines (2 - Td [...] Procedure Name Priority Date/Time Associated Diagnosis Comments CBC WITH AUTO DIFFERENTIAL Routine 01/31/2025 9:27 AM EDT Tremor Anemia, unspecified Essential hypertension, malignant Chronic non-psychotic brain syndrome HEMOGLOBIN A1C Routine 01/31/2025 9:27 AM EDT Type 2 diabetes mellitus with stage 3a chronic kidney disease, with long-term current use of insulin ([facility] V24, [facility] V28) LIPID PANEL WITH REFLEX TO DIRECT LDL Routine 01/31/2025 9:27 AM EDT Hypercholesteremia CBC AND DIFFERENTIAL Routine 01/31/2025 9:27 AM EDT Tremor Anemia, unspecified Essential hypertension, malignant Chronic non-psychotic brain syndrome THYROID STIMULATING HORMONE WITH REFLEX TO FREE T4 AND FREE T3 Routine 01/31/2025 9:27 AM EDT Tremor Anemia, unspecified Essential hypertension, malignant Chronic non-psychotic brain syndrome COMPREHENSIVE METABOLIC PANEL Routine 01/31/2025 9:27 AM EDT Tremor Anemia, unspecified Essential hypertension, malignant Chronic non-psychotic brain syndrome VITAMIN B12 AND FOLATE Routine 9:27 AM EDT Tremor Anemia, unspecified Essential hypertension, malignant Chronic non-psychotic brain syndrome SEDIMENTATION RATE Routine 01/31/2025 9: 27 AM EDT Tremor Anemia, unspecified Essential hypertension, malignant Chronic non-psychotic brain syndrome BLUE IFA WITH TITER AND PATTERN Routine 01/31/2025 9:27 AM EDT Tremor Anemia, unspecified Essential hypertension, malignant Chronic non-psychotic brain syndrome RHEUMATOID FACTOR Routine 01/31/2025 9:2 7 AM EDT Tremor Anemia, unspecified Essential hypertension, malignant Chronic non-psychotic brain syndrome VITAMIN B1 Routine 01/31/2025 9:27 AM EDT Tremor Anemia, unspecified Essential hypertension, malignant Chronic non-psychotic brain syndrome CERULOPLASMIN Routine 01/31/2025 9:27 AM EDT Tremor Anemia, unspecified Essential hypertension, malignant Chronic non-psychotic brain syndrome HIV 1, 2 ANTIBODY, P24 ANTIGEN WITH REFLEX TO DIFFERENTIATION Routine 01/31/2025 9:27 AM EDT Tremor Anemia, unspecified Essential hypertension, malignant Chronic non-psychotic brain syndrome TREPONEMA PALLIDUM ANTIBODY WITH REFLEX TO RPR AND PARTICLE AGGLUTINATION Routine 01/31/2025 9:27 AM EDT Tremor Anemia, unspecified Essential hypertension, malignant Chronic non-psychotic brain syndrome HOMOCYSTEINE, SERUM Routine 01/31/2025 9 :27 AM EDT Tremor Anemia, unspecified Essential hypertension, malignant Chronic non-psychotic brain syndrome METHYLMALONIC ACID, SERUM Routine 01/31/2025 9:27 AM EDT Tremor Anemia, unspecified Essential hypertension, malignant Chronic non-psychotic brain syndrome POC GLUCOSE Routine 01/31/2025 8:40 AM EDT Type 2 diabetes mellitus with stage 3 chronic kidney disease, with long-term current use of insulin, unspecified whether stage 3a or 3b CKD (CMS/HCC V24, CMS/HCC V28) MICROALBUMIN CREATININE URINE RATIO Routine 07/14/2024 10:36 AM EST Type 2 diabetes mellitus with stage 3 chronic kidney disease, with long-term current use of insulin, unspecified whether stage 3a or 3b CKD (CMS/HCC V24, CMS/HCC V28) Hypercholesteremia Primary hypertension MG MAMMO DIGITAL SCREENING W DIMA RIGHT Routine 04/24/2024 9:53 AM EST Encounter for screening mammogram for breast cancer DXA BONE DENSITY STUDY 1+ SITS AXIAL SKEL Routine 07/03/2020 9:59 AM EST Encounter for prophylactic measures, unspecified from Last 3 Months or Most Recently Relevant to Health Maintenance Results * HIV 1,2 antibody, p24 antigen with reflex to differentiation (01/31/2025 9:27 AM EDT) [facility] HIV Combo AB/AG Negative Negative LAB CHEMISTRY METHOD 01/31/2025 3:36 PM EDT [facility] Blood Venous blood specimen / Unknown Venipuncture / Unknown 01/31/2025 9:27 AM EDT 01/31/2025 9:27 AM EDT Narrative [facility] - 01/31/2025 3:36 PM EDT This assay is a 4th generation assay allowing for earlier detection of HIV infection by detecting the presence of the HIV-1 p24 antigen as well as the traditional antibodies to HIV type 1 (including group O) and type 2. Use of a 4th generation assay is the current CDC recommendation for HIV screening. Latia Blum [facility] BLOOD ORDERABLES Taylor l Result Performing Organization Address City/[facility]/ZIP Co de Phone Number [facility] [address] [place] [address], [place] [phone] * Treponema pallidum antibody with reflex to RPR and particle agglutination (01/31/2025 9:27 AM EDT) [facility] T. Pallidum Antibodies Negative Negative LAB CHEMISTRY METHOD 01/31/2025 3:07 PM EDT [facility] Blood Venous blood specimen / Unknown Venipuncture / Unknown 01/31/2025 9:27 AM EDT 01/31/2025 9:27 AM EDT [facility] Taylor l Result Performing Organization Address City/[facility]/ZIP Co de Phone Number [facility] [address] [place] [address], [place] [phone] * Thyroid stimulating hormone with reflex to free t4 and free t3 (01/31/2025 9:27 AM EDT) [facility] TSH 0.73 0.40 - 4.00 mcIU/mL LAB CHEMISTRY METHOD 01/31/2025 2:56 PM EDT [facility] Blood Venous blood specimen / Unknown Venipuncture / Unknown 01/31/2025 9:27 AM EDT 01/31/2025 9:27 AM EDT Latia Blum [facility] BLOOD ORDERABLES Taylor l Result Performing Organization Address City/[facility]/ZIP Co de Phone Number [facility] [address] [place] [address], [place] [phone] * Vitamin B12 and folate (01/31/2025 9:27 AM EDT) [facility] Vitamin B-12 601 250 - 900 pcg/mL LAB CHEMISTRY METHOD 01/31/2025 2:21 PM EDT [facility] Folate 13.0 2.8 - 17.0 ng/ml LAB CHEMISTRY METHOD 01/31/2025 2:21 PM EDT [facility] Blood Venous blood specimen / Unknown Venipuncture / Unknown 01/31/2025 9:27 AM EDT 01/31/2025 9:27 AM EDT Latia [facility] LAB BLOOD ORDERABLES Taylor l Result Performing Organization Address [facility]/ZIP Co de Phone Number [facility] [address] [place] [address], [place] [phone] * (ABNORMAL) Lipid panel with reflex to direct LDL (01/31/2025 9:27 AM EDT) [facility] Cholesterol 140 0 - 200 mg/dL LAB CHEMISTRY METHOD 01/31/2025 2:21 PM EDT [facility] Triglycerides 234(H) 0 - 150 mg/dL LAB CHEMISTRY METHOD 01/31/2025 2:21 PM EDT [facility] HDL 42 >=40 mg/dL LAB CHEMISTRY METHOD 01/31/2025 2:21 PM EDT [facility] LDL Calculated 51 0 - 100 mg/dL LAB CHEMISTRY METHOD 01/31/2025 2:21 PM EDT [facility] Comment:Estimated LDL Calcul ated using equation: Total cholesterol - HDL cholesterol - (Triglycerides/5) VLDL Cholesterol Leroy 46.8 mg/dL LAB CHEMISTRY METHOD 01/31/2025 2:21 PM EDT [facility] Non HDL Chol. (LDL+VLDL) 98 <145 mg/dL LAB CHEMISTRY METHOD 01/31/2025 2:21 PM EDT [facility] Chol/HDL Ratio 3.3 0.0 - 4.4 LAB CHEMISTRY METHOD 01/31/2025 2:21 PM EDT [facility] Blood Venous blood specimen / Unknown Venipuncture / Unknown 01/31/2025 9:27 AM EDT 01/31/2025 9:27 AM EDT Ellen MORE LAB BLOOD ORDERABLES Final Re sult Performing Organization Address City/[facility]/ZIP Co de Phone Number [facility] [address] [place] [address], [place] [phone] * BLUE IFA with titer and pattern (01/31/2025 9:27 AM EDT) BLUE Negative Negative 02/01/2025 1:55 PM EDT [facility] Comment:BLUE performed by ind irect immunofluorescence (IFA) using HEp-2 substrate. Blood Venous blood specimen / Unknown Venipuncture / Unknown 01/31/2025 9:27 AM EDT 01/31/2025 9:27 AM EDT Latia [facility] LAB BLOOD ORDERABLES Taylor l Result Performing Organization Address City/[facility]/ZIP Co de Phone Number [facility] [address] [place] [address], [place] [phone] * (ABNORMAL) CBC auto differential (01/31/2025 9:27 AM EDT) [facility] WBC 9.0 4.8 - 10.8 K/mcL LAB HEMETOLOGY METHOD 01/31/2025 12:52 PM [facility] RBC 4.40 3.80 - 4.80 M/mcL LAB HEMETOLOGY METHOD 01/31/2025 12:52 PM [facility] Hemoglobin 12.6 11.5 - 16.0 g/dL LAB HEMETOLOGY METHOD 01/31/2025 12:52 PM [facility] Hematocrit 39.1 35.0 - 47.0 % LAB HEMETOLOGY METHOD 01/31/2025 12:52 PM [facility] MCV 89.9 79.0 - 98.0 FL LAB HEMETOLOGY METHOD 01/31/2025 12:52 PM [facility] MCH 29.0 27.0 - 32.0 pcg LAB HEMETOLOGY METHOD 01/31/2025 12:52 PM [facility] MCHC 32.2 32.0 - 37.0 g/dL LAB HEMETOLOGY METHOD 01/31/2025 12:52 PM [facility] RDW 13.0 11.0 - 15.0 % LAB HEMETOLOGY METHOD 01/31/2025 12:52 PM [facility] Platelets 270 130 - 400 K/mcL LAB HEMETOLOGY METHOD 01/31/2025 12:52 PM [facility] MPV 12.9(H) 7.0 - 11.0 FL LAB HEMETOLOGY METHOD 01/31/2025 12:52 PM [facility] NRBC 0.0 <1.0 % LAB HEMETOLOGY METHOD 01/31/2025 12:52 PM [facility] NRBC Absolute 0.00 <0.10 K/mcL LAB HEMETOLOGY METHOD 01/31/2025 12:52 PM [facility] Neutrophils Relative 62.8 % LAB HEMETOLOGY METHOD 01/31/2025 12:52 PM [facility] Lymphocytes Relative 27.6 % LAB HEMETOLOGY METHOD 01/31/2025 12:52 PM [facility] Monocytes Relative 8.0 % LAB HEMETOLOGY METHOD 01/31/2025 12:52 PM [facility] Eosinophils Relative 1.0 % LAB HEMETOLOGY METHOD 01/31/2025 12:52 PM [facility] Basophils Relative 0.3 % LAB HEMETOLOGY METHOD 01/31/2025 12:52 PM [facility] Immature Granulocytes Relative 0.3 % LAB HEMETOLOGY METHOD 01/31/2025 12:52 PM [facility] Neutrophils Absolute 5.64 1.50 - 7.00 K/mcL LAB HEMETOLOGY METHOD 01/31/2025 12:52 PM [facility] Lymphocytes Absolute 2.48 1.00 - 5.00 K/mcL LAB HEMETOLOGY METHOD 01/31/2025 12:52 PM [facility] Monocytes Absolute 0.72 0.20 - 1.00 K/mcL LAB HEMETOLOGY METHOD 01/31/2025 12:52 PM [facility] Eosinophils Absolute 0.09 0.00 - 0.50 K/mcL LAB HEMETOLOGY METHOD 01/31/2025 12:52 PM [facility] Basophils Absolute 0.03 0.00 - 0.20 K/mcL LAB HEMETOLOGY METHOD 01/31/2025 12:52 PM [facility] Immature Granulocytes Absolute 0.03 0.00 - 0.03 K/mcL LAB HEMETOLOGY METHOD 01/31/2025 12:52 PM EDT [facility] Blood Venous blood specimen / Unknown Venipuncture / Unknown 01/31/2025 9:27 AM EDT 01/31/2025 9:27 AM EDT Lat[facility] BLOOD ORDERABLES Taylor l Result [facility] [address] [place] [address], * (ABNORMAL) Methylmalonic acid, serum (01/31/2025 9:27 AM EDT) Methylmalonic Acid 0.71(H) <0.40 umol/L 02/03/2025 1:12 PM EDT [facility] Comment: If applicable, any drug confirmation testing reported here was developed and the performance characteristics determined by [facility]. This confirmation testing has not been cleared or approved by the FDA. The laboratory is regulated under CLIA as qualified to perform high-complexity testing. This test is used for patient testing purposes. It should not be regarded as investigational or for research. Test performed at [facility], [address], [place] [address] Анна Haywood MD, PhD - Screen Maker Blood Venous blood specimen / Unknown Venipuncture / Unknown 01/31/2025 9:27 AM EDT 01/31/2025 9:27 AM EDT Latia Blum [facility] BLOOD ORDERABLES Taylor l Result [facility] [address] [place] [address] * Ceruloplasmin (01/31/2025 9:27 AM EDT) Ceruloplasmin 30 20 - 60 mg/dL 02/02/2025 5:48 AM EDT [facility] Comment: Test performed at [facility], [address], [place] [address] Анна Haywood MD, PhD - Screen Maker Blood Venous blood specimen / Unknown Venipuncture / Unknown 01/31/2025 9:27 AM EDT 01/31/2025 9:27 AM EDT us Jeffery Viktoria BATCH ATTENDANT LAB BLOOD ORDERABLES Taylor l Result YOGESH QUESADA [address] [place] [address] * Sedimentation rate (01/31/2025 9:27 AM EDT) Pathologist [facility] Sed Rate 12 0 - 30 mm/hr LAB HEMETOLOGY METHOD 01/31/2025 12:25 PM EDT [facility] Blood Venous blood specimen / Unknown Venipuncture / Unknown 01/31/2025 9:27 AM EDT 01/31/2025 9:27 AM EDT us Jeffery Viktoria [facility] BLOOD ORDERABLES Taylor l Result Performing Organization Address [facility] Co de Phone Number [facility] [address] [place] [address], [place] [phone] * Rheumatoid factor (01/31/2025 9:27 AM EDT) Pathologist [facility] Rheumatoid Factor <10.0 <15.0 I Unit/mL LAB CHEMISTRY METHOD 01/31/2025 2:21 PM EDT [facility] Blood Venous blood specimen / Unknown Venipuncture / Unknown 01/31/2025 9:27 AM EDT 01/31/2025 9:27 AM EDT us Latia Blum BATCH ATTENDANT LAB BLOOD ORDERABLES Taylor l Result [facility] [address] [place] [address], [place] [phone] * Vitamin B1 (01/31/2025 9:27 AM EDT) [facility] Vitamin B1 Whole Blood 78 38 - 122 ug/L 02/05/2025 1:17 PM EDT [facility] Comment: This test was developed and the performance characteristics determined by [facility]. It has not been cleared or approved by the FDA. The laboratory is regulated under CLIA as qualified to perform high-complexity testing. This test is used for patient testing purposes. It should not be regarded as investigational or for research. Test performed at [facility], [address] , [place] [address] Анна Haywood MD, PhD - Screen Maker Blood Venous blood specimen / Unknown Venipuncture / Unknown 01/31/2025 9:27 AM EDT 01/31/2025 9:27 AM EDT Latia Blum [facility] BLOOD ORDERABLES Taylor l Result [facility] [address] [place] [address] * (ABNORMAL) Homocysteine, total (01/31/2025 9:27 AM EDT) [facility] Homocysteine 11.6(H) 3.2 - 10.7 mcmol/L LAB CHEMISTRY METHOD 01/31/2025 2:21 PM EDT [facility] Blood Venous blood specimen / Unknown Venipuncture / Unknown 01/31/2025 9:27 AM EDT 01/31/2025 9:27 AM EDT Latia Blum [facility] BLOOD ORDERABLES Taylor l Result [facility] [address] [place] [address], * (ABNORMAL) Hemoglobin A1c (01/31/2025 9:27 AM EDT) [facility] Hemoglobin A1C 6.9(H) <6.5 % LAB CHEMISTRY METHOD 01/31/2025 1:45 PM [facility] Mean Bld Glu Estim. 151 mg/dL LAB CHEMISTRY METHOD 01/31/2025 1:45 PM [facility] Blood Venous blood specimen / Unknown Venipuncture / Unknown 01/31/2025 9:27 AM EDT 01/31/2025 9:27 AM EDT us Ellen MORE LAB BLOOD ORDERABLES Final Re sult [facility] [address] [place] [address], * (ABNORMAL) Comprehensive metabolic panel (01/31/2025 9:27 AM EDT) [facility] Sodium 139 133 - 145 mmol/L LAB CHEMISTRY METHOD 01/31/2025 2:21 PM [facility] Potassium 4.5 3.5 - 5.5 mmol/L LAB CHEMISTRY METHOD 01/31/2025 2:21 PM [facility] Chloride 103 96 - 110 mmol/L LAB CHEMISTRY METHOD 01/31/2025 2:21 PM [facility] CO2 31 21 - 32 mmol/L LAB CHEMISTRY METHOD 01/31/2025 2:21 PM [facility] Anion Gap 5 3 - 11 LAB CHEMISTRY METHOD 01/31/2025 2:21 PM [facility] Glucose 248(H) 70 - 100 mg/dL LAB CHEMISTRY METHOD 01/31/2025 2:21 PM [facility] BUN 15 5 - 25 mg/dL LAB CHEMISTRY METHOD 01/31/2025 2:21 PM [facility] Creatinine 1.22(H) 0.50 - 1.10 mg/dL LAB CHEMISTRY METHOD 01/31/2025 2:21 PM [facility] eGFR 47(L) >=60 mL/min/1. 73m2 LAB CHEMISTRY METHOD 01/31/2025 2:21 PM [facility] Comment:Calculation based on the Chronic Kidney Disease Epidemiology Collaboration (CKD-EPI) equation refit without adjustment for race. BUN/Creatinine Ratio 12.3 LAB CHEMISTRY METHOD 01/31/2025 2:21 PM [facility] Calcium 9.6 8.5 - 10.5 mg/dL LAB CHEMISTRY METHOD 01/31/2025 2:21 PM [facility] AST (SGOT) 26 10 - 42 unit/L LAB CHEMISTRY METHOD 01/31/2025 2:21 PM [facility] ALT (SGPT) 42 10 - 60 unit/L LAB CHEMISTRY METHOD 01/31/2025 2:21 PM [facility] Alkaline Phosphatase 139(H) 42 - 121 unit/L LAB CHEMISTRY METHOD 01/31/2025 2:21 PM [facility] Total Protein 7.1 6.0 - 8.0 g/dL LAB CHEMISTRY METHOD 01/31/2025 2:21 PM [facility] Albumin 3.6 3.2 - 5.0 g/dL LAB CHEMISTRY METHOD 01/31/2025 2:21 PM [facility] Total Bilirubin 1.2 0.0 - 1.4 mg/dL LAB CHEMISTRY METHOD 01/31/2025 2:21 PM [facility] Blood Venous blood specimen / Unknown Venipuncture / Unknown 01/31/2025 9:27 AM EDT 01/31/2025 9:27 AM EDT Latia PONDP LAB BLOOD ORDERABLES [place] Result [facility] [address] [place] [address], [place] [phone] * POC glucose manually resulted (01/31/2025 8:40 AM EDT) Glucose POC 259 mg/dL Blood Capillary blood specimen / Unknown 01/31/2025 8:40 AM EDT Caitlin MORE POINT OF CARE TEST ENTER/ED IT ORDERABLES Final Result * Microalbumin creatinine urine ratio (07/14/2024 10:36 AM EST) Creatinine, Urine 124.0 mg/dL LAB CHEMISTRY METHOD 07/14/2024 2:05 PM EST [facility] Microalb, Ur 7.1 0.0 - 29.0 mg/L LAB CHEMISTRY METHOD 07/14/2024 2:05 PM EST [facility] Microalb/Creat Ratio 6 <30 mg/g creat LAB CHEMISTRY METHOD 07/14/2024 2:05 PM EST [facility] Urine Urine specimen obtained by clean catch procedure / Unknown Non-blood Collection / Unknown 07/14/2024 10:36 AM EST 07/14/2024 10:36 AM EST Bhakti Rodgers MD LAB URINE ORDERABLES Final Resul t [facility] [address] [place] [address], * MG Mammo Digital Screening w Dima [...] for biopsy. PQRI CPT II 3342F Code 51093, 73159 PQRI 225 CPT II 7025F TISSUE DENSITY: There are scattered areas of fibroglandular density. (BI-RADS category B) IMPRESSION: Benign. BI-RADS CATEGORY: 2 - BENIGN RECOMMENDATION: Screening bilateral mammogram is recommended in 1 year. Mammo Location: [facility], [address] [place] [id number] -------- FINAL REPORT -------- Dictated By: Isreal Hernadez Dictated Date: 04/26/2024 10:19 ET Assigned Physician: Isreal Hernadez Reviewed and Electronically Signed By: Isreal Hernadez Signed Date: 04/26/2024 10:28 ET Workstation ID: [id number] Transcribed By: Self Edit Transcribed Date: 04/26/2024 10:22 ET Narrative 04/26/2024 10:28 AM EST CLINICAL: The patient is a 73 years Female presenting for routine screening mammography. The patient has a personal history of left breast cancer, treated with mastectomy in 2018. The patient underwent right breast biopsy in 2020, pathology benign. COMPARISON: Most recently 04/21/2023 and most remotely 01/25/2020. TECHNIQUE: Full-field digital mammography of the right breast consisting of tomosynthesis in MLO and CC projection is performed in the [employer] 2000-D unit. Computer aided detection utilizing the [employer] system was utilized. FINDINGS: The breasts are [...] skin thickening or nipple retraction. Procedure Note Israel Hernadez MD - 04/26/2024 CLINICAL: The patient [...] and CC projection is performed in the [employer]rix 2000-D unit. Computer aided detection utilizing the [employer] was utilized. FINDINGS: The breasts are again [...] for biopsy. PQRI CPT II 3342F Code 09429, 08802 PQRI 225 CPT II 7025F TISSUE DENSITY: There are scattered areas of fibroglandular density.(BI-RADS category B) IMPRESSION: Benign. BI-RADS CATEGORY: 2 - BENIGN RECOMMENDATION: Screening bilateral mammogram is recommended in 1 year. Mammo Location: [facility], [address] [place] [id number] -------- FINAL REPORT -------- Dictated By: Isreal Hernadez Dictated Date: 04/26/2024 10:19 ET Assigned Physician: Isreal Hernadez Reviewed and Electronically Signed By: Isreal Hernadez Signed Date: 04/26/2024 10:28 ET Workstation ID: [id number] Transcribed By: Self Edit Transcribed Date: 04/26/2024 [...] normal bone density by WHO criteria. The [facility] Department of Internal Medicine recommends using [...] alternative screening schedule based on migdalia Padilla., [facility] May 28, 2011 for patients [...] normal bone density by WHO criteria. The [facility] Department of Internal Medicine recommendsusing National [...] screening schedule based on patrick Padilla al., [facility] for patients with osteopenia (based on hip BMD T-score) is as follows: * advanced osteopenia (T scores -2.00 to -2.49), BMD testing every year * moderate osteopenia (T scores -1.50 to -1.99), BMD testing every 5years mild osteopenia or normal BMD (T scores -1.50 and higher), BMD testingevery 15 years Kizzy Marshall MD IM DXA PROCEDURES Final Resul t from Last 3 Months or Most Recently Relevant to Health Maintenance Insurance [place] [employer] [place] Advance Directives Documents on File Type Date 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
== END 2025-04-25 11:25 | disposition home or self-care (01) ==
LOC: HO.HSMS 08:51
PROVIDERS: PCP Internal Medicine; Visit Provider Nurse Practitioner Family
DX: G43.409 Hemiplegic migraine, not intractable, without status migrainosus (principal); G43.109 Migraine with aura, not intractable, without status migrainosus; G43.101 Migraine with aura, not intractable, with status migrainosus; R25.1 Tremor, unspecified; F39 Unspecified mood [affective] disorder; G47.9 Sleep disorder, unspecified; R41.89 Other symptoms and signs involving cognitive functions and awareness
CPT/HCPCS: 99214

== ENCOUNTER 2025-04-25 08:51 | Outpatient (REF) | payer MEDICARE, SELFPAY ==
[2025-04-25 14:16] LABS: Hematocrit 38.2 % (37.0-47.0); Hemoglobin 12.6 g/dl (12.0-16.0); Imm Gran Abs Auto 0.06 X10*3/uL (0.00-0.03); Imm Gran Pct Auto 0.6 % (0.0-0.4); Lymphocytes Absolute Auto 3.0 X10*3/uL (1.2-4.9); MANUAL DIFF FLAG SCAN; Mean Corpuscular HGB Conc 33.0 g/dl (31.0-35.0); Mean Corpuscular Hemoglobin 29.4 pg (27.0-33.0); Mean Corpuscular Volume 89.3 fL (80.0-98.0); NRBC Abs Auto 0.000 X10*3/uL (0.0-0.012); NRBC Pct Auto 0.0 /100WBC (0.0-0.2); PLT CLUMP 1; Red Blood Count 4.28 X10*6/uL (4.20-5.50); SCAN SMEAR FLAG 1
[2025-04-25 14:38] LABS: Platelet Count 242 X10*3/uL (160-400); White Blood Count 10.2 X10*3/uL (4.8-10.8)
[2025-04-25 15:02] LABS: Alanine Aminotransferase 35 U/L (0-31); Albumin Level 4.1 g/dL (3.5-5.0); Alkaline Phosphatase 119 U/L (39-117); Anion Gap 13 (12-20); Aspartate Amino Transferase 36 U/L (5-31); Blood Urea Nitrogen 19 mg/dL (9-16); Calcium 9.3 mg/dL (8.4-10.2); Carbon Dioxide 28 mmol/L (22-29); Chloride 104 mmol/L (96-108); Estimated Glomerular Filt Rate 47; Iron 58 mcg/dL (30-160); Percent Iron Saturation 20 % (15-50); Potassium 4.7 mmol/L (3.3-5.1); Sodium 140 mmol/L (135-145); Total Iron Binding Capacity 297 mcg/dL (228-428); Total Protein 7.1 g/dL (6.5-8.0); Unsaturated Iron Binding 239 ug/dL
[2025-04-25 15:19] LABS: Ferritin 118 ng/mL (10-250)
[2025-04-25 16:20] LABS: Folate 9.0 ng/mL (> or = 4.0); Vitamin B12 489 pg/mL (200-900)
== END 2025-04-25 08:52 | disposition home or self-care (01) ==
LOC: HO.HKASLDS 08:51
PROVIDERS: PCP Internal Medicine; Visit Provider Nurse Practitioner Family
DX: G43.409 Hemiplegic migraine, not intractable, without status migrainosus (principal); G43.101 Migraine with aura, not intractable, with status migrainosus; D64.9 Anemia, unspecified; R25.1 Tremor, unspecified; I10 Essential (primary) hypertension; E03.9 Hypothyroidism, unspecified; F39 Unspecified mood [affective] disorder; G47.9 Sleep disorder, unspecified; F09 Unspecified mental disorder due to known physiological condition; Z79.899 Other long term (current) drug therapy
CPT/HCPCS: 36415; 80053; 82607; 82728; 82746; 83090; 83540; 83921; 84443; 85025